=== PATIENT | female | born 1950 | race Caucasian/White ===

== ENCOUNTER 2017-11-16 16:02 | Observation (INO) | payer MEDICARE, MEDICAID, SELFPAY ==
--- NOTE | 2017-11-16 07:48 | XR_ITS ---
XR chest portable HISTORY: Severe shortness of breath, COPD, former smoker ITS.REASON: SOB, HX COPD ORDERING PHYSICIAN: Juanpablo Wallace MD PATIENT AGE: 67 years COMPARISON: 09-11-15 FINDINGS: The cardiomediastinal silhouette and pulmonary vascularity are within normal limits. There is increased opacification in the right infrahilar region. This has a somewhat nodular contour. While this could be related to pneumonia, developing nodule isn't additional consideration. Follow-up PA and lateral chest suggested. If this persists, then CT may be of further value. No acute bony abnormalities. IMPRESSION: Increased opacification right infrahilar region which may be due to pneumonia. Cannot exclude developing nodule. CT may be of further value if this persists
[2017-11-16 16:02] VITALS: BP 117/56; PULSE 86; RESP 24; TEMP 37.2; O2SAT 96; BMI 297955.0
[2017-11-16 16:39] VITALS: BP 113/72; PULSE 89; RESP 20
[2017-11-16 18:00] VITALS: BP 136/73; PULSE 83; RESP 20; O2SAT 96
[2017-11-16 18:34] VITALS: BP 154/83; PULSE 90; RESP 20; TEMP 37.6; O2SAT 95
--- NOTE | 2017-11-16 20:15 | PC.NURSE ---
Fabiana Fuentes called report to A Mando RN- transported to room via at 2015 on 11/16/17.
[2017-11-16 20:55] VITALS: BP 132/68; PULSE 75; RESP 21; TEMP 36.4; O2SAT 95; BMI 29.7
[2017-11-16 22:06] VITALS: BMI 29.7
[2017-11-16 22:34] VITALS: O2SAT 95
--- NOTE | 2017-11-16 23:53 | HMH.EDSOB ---
ED Disposition Clinical Impression: Acute exacerbation of chronic obstructive airways disease, Acute bronchitis, Cough, Tobacco abuse RLL pneumonia Qualifiers: Pneumonia type: due to unspecified organism Qualified Code(s): J18.1 - Lobar pneumonia, unspecified organism Disposition: Admitted as Observation Condition on Discharge: Fair - Critical Care Critical Care Time: No Attestation: On 11/16/17, the high probability of a clinically significant, sudden or life threatening deterioration of the following system(s) required my full and direct attention, intervention and personal management. The time I documented below is in addition to time spent performing reported procedures but includes the following listed in this critical care notation. Medical Decision Making Vital Signs: 11/16/17 20:55 11/16/17 22:00 11/16/17 22:34 Temperature 97.5 F L Temperature Source Oral Pulse Rate [Radial] 75 Respiratory Rate 21 Blood Pressure [Right Arm] 132/68 Blood Pressure Mean [Right Arm] 89 Blood Pressure Source [Right Arm] Automatic Cuff Blood Pressure Position [Right Arm] Supine 02 Sat by Pulse Oximetry 95 95 Oxygen Delivery Method Nasal Cannula Nasal Cannula Nasal Cannula Oxygen Flow Rate (LPM) 2 - Lab Data Lab results reviewed: Yes: I reviewed the patient's lab results. PH 7.402, pCO2 37.0, p02 87.4, HC03 22.5, BE -2.3, C02 23.6, GLU 131 HI , BUN 7, CREAT 093, NA 142, K 3.4, CL 105, C02 27.9, CA 8.9, TP 6.7, ALB 2.9 LO, GLOB 3.8 HI, ALB/GLOB RATIO .76 LO, TB .49, SGOT/AST 58 HI, SGPT/ALT 37, ASK PHOS 52, TROP I <.07 Influenza A & B negative Orders (Tests/Meds): ED MEDICATIONS Generic Name Dose Route Start Last Admin Trade Name Freq PRN Reason Stop Dose Admin Albuterol/Ipratropium 3 ml 11/16/17 22:20 Duoneb 3ml Neb IH 12/16/17 22:19 Q4HP PRN Shortness Of Breath Or Wheezing Sodium Chloride 1,000 mls @ 75 mls/hr 11/16/17 22:30 11/16/17 23:21 Sod Chloride 0.9% 1000ml Bag IV 12/16/17 22:29 75 mls/hr .[id number] DANETTE Administration Azithromycin 500 mg/ Sodium 250 mls @ 250 mls/hr 11/17/17 00:00 11/16/17 23:22 Chloride IV 12/01/17 00:00 250 mls/hr Q24H DANETTE Administration Ceftriaxone Sodium 1 gm/ 50 mls @ 100 mls/hr 11/17/17 20:00 Sodium Chloride IV 12/01/17 19:59 Q24H DANETTE Tussionex (Non- 0 each 11/16/17 21:00 Formulary) PO 12/16/17 20:59 Q12H DANETTE Discontinued Medications Generic Name Dose Route Start Last Admin Trade Name Freq PRN Reason Stop Dose Admin Benzonatate 200 mg 11/16/17 16:55 11/16/17 23:21 Tessalon Perles 100mg Capsule PO 11/16/17 16:56 Not Given ONCE ONE Ceftriaxone Sodium 1 gm/ 50 mls @ 100 mls/hr 11/16/17 23:00 Sodium Chloride IV 11/30/17 22:59 Q24H DANETTE Sodium Chloride 1,000 mls @ 1,000 mls/hr 11/16/17 16:00 11/16/17 23:20 Sod Chloride 0.9% 1000ml Bag IV 11/16/17 16:59 Not Given .Q1H DANETTE Ceftriaxone Sodium 1 gm/ 50 mls @ 100 mls/hr 11/16/17 19:40 11/16/17 23:21 Sodium Chloride IV 11/16/17 20:09 Not Given ONCE ONE - Radiology Data #1 Image(s): Chest Image Reviewed: Yes I reviewed the patient's radiology image Chronic chages, new infiltrates noted - Physician Consults Physician Consulted: Rosa Elena Time: 19:30 Reason -: Admission, Pt condition Comment/Response: Accepted admission to Dr Rodrigo Johnson Inquiry Pt receiving controlled substance: No Medical Decision Making Narrative: Discussed condition and lab results with son. Oxygen % dec 25% Resp/SOB HPI - General Chief Complaint: Shortness of Breath/Dyspnea Stated Complaint: COPD Time Seen by Provider: 11/16/17 16:15 Mode of Arrival: EMS ([facility]) Source of Information: Patient, Relative (son), EMS Limitations: Physical Limitations Description of Symptoms (Recalled from ER Triage Doc. by RN): cough, diarrhea, poor po intake x 5 days - History of Present Illness 67
--- NOTE | 2017-11-16 23:56 | ED_ITS ---
ED Disposition Clinical Impression: Acute exacerbation of chronic obstructive airways disease, Acute bronchitis, Cough, Tobacco abuse RLL pneumonia Qualifiers: Pneumonia type: due to unspecified organism Qualified Code(s): J18.1 - Lobar pneumonia, unspecified organism Disposition: Admitted as Observation Condition on Discharge: Fair - Critical Care Critical Care Time: No Attestation: On 11/16/17, the high probability of a clinically significant, sudden or life threatening deterioration of the following system(s) required my full and direct attention, intervention and personal management. The time I documented below is in addition to time spent performing reported procedures but includes the following listed in this critical care notation. Medical Decision Making Vital Signs: 11/16/17 20:55 11/16/17 22:00 11/16/17 22:34 Temperature 97.5 F L Temperature Source Oral Pulse Rate [Radial] 75 Respiratory Rate 21 Blood Pressure [Right Arm] 132/68 Blood Pressure Mean [Right Arm] 89 Blood Pressure Source [Right Arm] Automatic Cuff Blood Pressure Position [Right Arm] Supine 02 Sat by Pulse Oximetry 95 95 Oxygen Delivery Method Nasal Cannula Nasal Cannula Nasal Cannula Oxygen Flow Rate (LPM) 2 - Lab Data Lab results reviewed: Yes: I reviewed the patient's lab results. PH 7.402, pCO2 37.0, p02 87.4, HC03 22.5, BE -2.3, C02 23.6, GLU 131 HI , BUN 7, CREAT 093, NA 142, K 3.4, CL 105, C02 27.9, CA 8.9, TP 6.7, ALB 2.9 LO, GLOB 3.8 HI, ALB/GLOB RATIO .76 LO, TB .49, SGOT/AST 58 HI, SGPT/ ALT 37, ASK PHOS 52, TROP I <.07 Influenza A & B negative Orders (Tests/Meds): ED MEDICATIONS Generic Name Dose Route Start Last Admin Trade Name Freq PRN Reason Stop Dose Admin Albuterol/Ipratropium 3 ml 11/16/17 22:20 Duoneb 3ml Neb IH 12/16/17 22:19 Q4HP PRN Shortness Of Breath Or Wheezing Sodium Chloride 1,000 mls @ 75 mls/hr 11/16/17 22:30 11/16/17 23:21 Sod Chloride 0.9% 1000ml Bag IV 12/16/17 22:29 75 mls/hr .[id number] DANETTE Administration Azithromycin 500 mg/ Sodium 250 mls @ 250 mls/hr 11/17/17 00:00 11/16/17 23: 22 Chloride IV 12/01/17 00:00 250 mls/hr Q24H DANETTE Administration Ceftriaxone Sodium 1 gm/ 50 mls @ 100 mls/hr 11/17/17 20:00 Sodium Chloride IV 12/01/17 19:59 Q24H DANETTE Tussionex (Non- 0 each 11/16/17 21:00 Formulary) PO 12/16/17 20:59 Q12H DANETTE Discontinued Medications Generic Name Dose Route Start Last Admin Trade Name Freq PRN Reason Stop Dose Admin Benzonatate 200 mg 11/16/17 16:55 11/16/17 23:21 Tessalon Perles 100mg Capsule PO 11/16/17 16:56 Not Given ONCE ONE Ceftriaxone Sodium 1 gm/ 50 mls @ 100 mls/hr 11/16/17 23:00 Sodium Chloride IV 11/30/17 22:59 Q24H DANETTE Sodium Chloride 1,000 mls @ 1,000 mls/hr 11/16/17 16:00 11/16/17 23:20 Sod Chloride 0.9% 1000ml Bag IV 11/16/17 16:59 Not Given .Q1H DANETTE Ceftriaxone Sodium 1 gm/ 50 mls @ 100 mls/hr 11/16/17 19:40 11/16/17 23:21 Sodium Chloride IV 11/16/17 20:09 Not Given ONCE ONE - Radiology Data #1 Image(s): Chest Image Reviewed: Yes I reviewed the patient's radiology image Ch
[2017-11-17] VITALS: BP 131/80; PULSE 83; RESP 22; TEMP 36.6
[2017-11-17 00:02] LABS: Alanine Aminotransferase 37 U/L (12-78); Albumin Level 2.9 gm/dL (3.4-5.0); Albumin/Globulin Ratio 0.8 (1.1-1.8); Alkaline Phosphatase 52 U/L (46-116); Anion Gap 12.4 mEq/L (5-15); Aspartate Amino Transferase 58 U/L (15-37); Bilirubin,Total 0.5 mg/dL (0.2-1.0); Blood Urea Nitrogen 7 mg/dL (7-18); Calcium 8.9 mg/dL (8.5-10.1); Carbon Dioxide 28 mmol/L (21.0-32.0); Chloride 105 mmol/L (98-107); Creatinine Clearance Estimated 73 mL/min (0-300); Creatinine,Serum 0.93 mg/dL (0.55-1.02); Estimated Glomerular Filt Rate 60 ml/min (>60); GFR (African American) > 60 ML/MIN (>60); Globulin 3.8 gm/dl (1.3-3.2); Glucose 131 mg/dL (74-106); Magnesium 1.8 mg/dL (1.4-2.2); Potassium 3.4 mmoL/L (3.5-5.1); Sodium 142 mmol/L (136-145); Total Protein,Serum 6.7 gm/dL (6.4-8.2); Troponin I < 0.02 ng/ml (0.00-0.06)
[2017-11-17 00:56] LABS: Basophils % 0.8 % (0.1-2.0); Eosinophils % 0.2 % (0.1-12.0); Hematocrit 39.7 % (37.0-47.0); Hemoglobin 13.1 g/dL (12.2-16.2); Lymphocytes # 1.7 K/mm3 (0.7-4.5); Lymphocytes % 24.9 K/mm3 (10-50); Mean Corpuscular Hemoglobin 30.1 pg (27.0-31.2); Mean Platelet Volume 8.4 fl (7.4-10.4); Monocytes % 6.6 % (1.7-9.3); Neutrophils # 4.3 K/mm3 (1.8-7.8); Neutrophils % 62.5 % (37.0-80.0); Platelet Count 226 K/mm3 (142-424); Red Blood Count 4.36 M/mm3 (4.20-5.40); Red Cell Distribution Width 13.8 % (11.5-17.5); White Blood Count 6.9 K/mm3 (4.8-10.8)
[2017-11-17 00:57] LABS: Basophils # 0.1 K/mm3 (0-0.2); Monocytes # 0.5 K/mm3 (0.1-1.0)
[2017-11-17 04:00] VITALS: BP 138/66; PULSE 72; RESP 22; TEMP 36.8; O2SAT 93
--- NOTE | 2017-11-17 04:17 | PC.NURSE ---
DOES NOT HAVE INTERNET. NOT INTERESTED IN PT PORTAL. BROCHURE GIVEN
[2017-11-17 04:29] LABS: Adenovirus F 40/41, stool Not Detected (NotDetected); Astrovirus Not Detected (NotDetected); Campylobacter Not Detected (NotDetected); Clostridium Difficile A/B, PCR Not Detected (NotDetected); Cryptosporidium Not Detected (NotDetected); Cyclospora Cayetanesis Not Detected (NotDetected); Entamoeba histolytica Not Detected (NotDetected); Enteroaggregative E coli Not Detected (NotDetected); Enteropathogenic E coli Not Detected (NotDetected); Enterotoxigenic E coli Not Detected (NotDetected); Giardia lamblia Not Detected (NotDetected); Norovirus Not Detected (NotDetected); Plesimonas Shigalloides, PCR Not Detected (NotDetected); Rotavirus A Not Detected (NotDetected); Salmonella, PCR Not Detected (NotDetected); Sapovirus Not Detected (NotDetected); Shiga-like toxin E coli Not Detected (NotDetected); Shigella Enterovasive E coli Not Detected (NotDetected); Vibrio Cholerae Not Detected (NotDetected); Vibrio, PCR Not Detected (NotDetected); Yersinia Entercolitica, PCR Not Detected (NotDetected)
--- NOTE | 2017-11-17 05:23 | PC.NURSE ---
SINCE ADMISSION PT HAS NOT RESTED MUCH, C/O DRY HACKY COUGH WITH SMALL AMOUNT OF SPUTUM PRODUCTION. PT UP TO BSC X1 ASSISTANCE. RHONCHI AND WHEEZING NOTED DURING LUNG AUSCULTATION. BS ACTIVE IN ALL 4 QAUDS. PT A&OX3. TOLERATING 2L NC WELL. NO ACUTE DISTRESS NOTED. WILL CONTINUE TO MONITOR.
[2017-11-17 06:01] VITALS: PULSE 73; PULSE 74; O2SAT 93
[2017-11-17 06:43] LABS: Eosinophils % 0.2 % (0.1-12.0); Hematocrit 37.9 % (37.0-47.0); Hemoglobin 12.1 g/dL (12.2-16.2); Lymphocytes % 22.3 K/mm3 (10-50); Mean Corpuscular Hemoglobin 29.3 pg (27.0-31.2); Mean Corpuscular Volume 91.4 fl (81-99); Mean Platelet Volume 7.9 fl (7.4-10.4); Monocytes % 6.6 % (1.7-9.3); Neutrophils % 70.3 % (37.0-80.0); Platelet Count 225 K/mm3 (142-424); Red Blood Count 4.15 M/mm3 (4.20-5.40); White Blood Count 7.1 K/mm3 (4.8-10.8)
[2017-11-17 06:44] LABS: Basophils % 0.6 % (0.1-2.0); Lymphocytes # 1.6 K/mm3 (0.7-4.5); Monocytes # 0.5 K/mm3 (0.1-1.0)
[2017-11-17 06:49] LABS: Anion Gap 11.7 mEq/L (5-15); Blood Urea Nitrogen 10 mg/dL (7-18); Carbon Dioxide 27 mmol/L (21.0-32.0); Chloride 108 mmol/L (98-107); Creatinine Clearance Estimated 73 mL/min (0-300); Creatinine,Serum 0.74 mg/dL (0.55-1.02); Estimated Glomerular Filt Rate > 60 ml/min (>60); GFR (African American) > 60 ML/MIN (>60); Glucose 170 mg/dL (74-106); Potassium 3.7 mmoL/L (3.5-5.1); Sodium 143 mmol/L (136-145)
--- NOTE | 2017-11-17 07:18 | PC.NURSE ---
REPORT GIVEN TO Victoria PANDEY
--- NOTE | 2017-11-17 07:19 | HMH.PHAVTE ---
[facility] Pharmacy VTE Monitoring - Patient Demographics Admission date: 11/16/17 Report Date: 11/17/17 Time: 07:19 Allergies/Adverse Reactions: metronidazole Allergy (Unknown, Verified 11/16/17 22:18) I-HIVES nitrofurantoin [From MACROBID] Allergy (Unknown, Verified 11/16/17 22:18) Unknown allergy reaction Height: 1.7 m Weight: 86.268 kg Patient Problems: Current Active Problems Acute exacerbation of chronic obstructive airways disease (Acute) RLL pneumonia (Acute) Acute bronchitis (Acute) Cough (Acute) Tobacco abuse (Acute) - VTE Risk Labs: VTE Related Lab Results Hgb 12.1 g/dL (12.2-16.2) L 11/17/17 06:12 Hct 37.9 % (37.0-47.0) 11/17/17 06:12 Plt Count 225 K/mm3 (142-424) 11/17/17 06:12 BUN 10 mg/dL (7-18) D 11/17/17 06:12 Creatinine 0.74 mg/dL (0.55-1.02) D 11/17/17 06:12 Estimated Creat Clear 73 mL/min (0-300) 11/17/17 06:12 Was VTE Risk Assessment Performed: Yes VTE Score: 7 VTE Risk Level: Moderate Risk Clinical Trial Participant: No - Prophylaxis Types of VTE Prophylaxis: TEDS Thigh High
[2017-11-17 07:56] VITALS: BP 155/42; PULSE 83; RESP 20; TEMP 37; O2SAT 93
--- NOTE | 2017-11-17 08:16 | HMH.HP ---
*Admission Date: 11/16/17 <ReenaAnalia 11/17/17 08:22> *Chief complaint: cough and SOB <ReenaAnalia 11/17/17 08:22> *History of present illness: Ms Sommer is a 67 year old female with a history of COPD, tobacco use, chronic low back and leg pain, and depression who describes being sick for several weeks. She started with a sore throat 11/06/17 which progressed to a frequent cough, fever, body aches, headache and also nausea and diarrhea. She has not been able to eat or drink much for the past week. She has been taking some of her meds. She presented to the ER last PM and was felt to have a new infiltrate on the CXR. She was adm for ABX, IVF nebs, and further evaluation and treatment. This AM she feels terrible. She has continued to cough throughout the night. <Analia Valles 11/17/17 14:40> [facility] History Medical History: Reports:: Asthma, Cancer (cervical), Chronic Obstructive Pulmonary Disease (COPD), Coronary Artery Disease, Hyperlipidemia, Hypertension, Migraine Denies:: Diabetes Mellitus Type 1, Diabetes Mellitus Type 2, MRSA <Analia Valles 11/17/17 14:40> Other Medical History: Reports: Arthritis, Cataracts, Hoarseness (VOICE IS HOARSE ON ADMISSION), Hormone Therapy, Hypothyroidism, Sinus Problems, Thyroid Disease <Analia Valles 11/17/17 14:40> Comment: chronic low back and leg pain <Analia Valles 11/17/17 14:40> Laterality Cases: Bilateral: Lumpectomy <Analia Valles 11/17/17 08:22> Other Surgeries: Yes: Cancer Surgery (cervical), Colonoscopy, Hysterectomy-Total <Analia Valles 11/17/17 14:40> Amputation: No <Analia Valles 11/17/17 08:22> Fractures: No <Analia Valles 11/17/17 14:40> - *Social History Educational Level: Attended High School <Analia Valles 11/17/17 08:22> Smoking Status: Current every day smoker <Analia Valles 11/17/17 08:22> Tobacco Type: cigarettes <Analia Valles 11/17/17 08:22> # Packs/Day (cigarettes): 3 <Analia Valles 11/17/17 08:22> Smoking End Date: ABOUT A WEEK AGO <Analia Valles 11/17/17 08:22> Alcohol Intake: never <Analia Valles 11/17/17 08:22> Alcohol Intake Frequency:: 3 or more drinks per day <Analia Valles 11/17/17 08:22> Substance Use Type: denies use, prescription drug <Analia Valles 11/17/17 14:40> Occupational Status: employed <Analia Valles 11/17/17 08:22> Housing: house <Analia Valles 11/17/17 08:22> Household Members: spouse, children <Analia Valles 11/17/17 08:22> - Psychiatric History Expresses thoughts of harming self/others: None <ReenaAnalia 11/17/17 08:22> Suicide Plan Description: No Plan <Analia Valles 11/17/17 08:22> *Family Hx:: Cancer (father had bone cancer; brother-colon cancer; sister-lung cancer; brother-tongue cancer) <ReenaAnalia 11/17/17 14:40> Comment: mother had Parkinsons <ReenaAnalia 11/17/17 14:40> Review of Systems - Constitutional Reports body ache(s), Reports chills, Reports fever(s), Reports headache(s), Reports lack of energy, Reports weakness <ReenaAnalia 11/17/17 14:40> - ENT Reports headache(s), Reports sore throat <ReenaAnalia 11/17/17 14:40> - *Cardiovascular Reports shortness of breath, Denies chest pain <VallesAnalia 11/17/17 14:40> - *Respiratory Reports chest congestion, Reports cough, Reports shortness of breath <VallesAnalia 11/17/17 14:40> - *Gastrointestinal Reports other, Denies vomiting <VallesAnalia 11/17/17 14:40> Comments: diarrhea <VallesAnalia 11/17/17 14:40> - *Musculoskeletal Reports joint pain, Reports muscle weakness, Reports body aches <Analia Valles - 11/17/17 14:40> - *Neurologic Reports dizziness, Reports headache(s), Reports other (as per HPI) <Analia Valles - 11/17/17 14:40> Meds Home Medications Medication Instructions Recorded Confirmed Type Atorvastatin Calcium [Atorvastatin 40 mg PO HS 11/16/17 11/17/17 History 40mg Tab] Escitalopram Oxalate [Lexapro] 20 mg PO DAILY 11/16/17 0
--- NOTE | 2017-11-17 08:22 | P.HP_ITS ---
*Admission Date: 11/16/17 <ReenaAnalia 11/17/17 08:22> *Chief complaint: cough and SOB <ReenaAnalia 11/17/17 08:22> *History of present illness: Ms Sommer is a 67 year old female with a history of COPD, tobacco use, chronic low back and leg pain, and depression who describes being sick for several weeks. She started with a sore throat 11/06/17 which progressed to a frequent cough, fever, body aches, headache and also nausea and diarrhea. She has not been able to eat or drink much for the past week. She has been taking some of her meds. She presented to the ER last PM and was felt to have a new infiltrate on the CXR. She was adm for ABX, IVF nebs, and further evaluation and treatment. This AM she feels terrible. She has continued to cough throughout the night. <Analia Valles 11/17/17 14:40> [facility] History Medical History: Reports:: Asthma, Cancer (cervical), Chronic Obstructive Pulmonary Disease (COPD), Coronary Artery Disease, Hyperlipidemia, Hypertension , Migraine Denies:: Diabetes Mellitus Type 1, Diabetes Mellitus Type 2, MRSA <Analia Valles 11/17/17 14:40> Other Medical History: Reports: Arthritis, Cataracts, Hoarseness (VOICE IS HOARSE ON ADMISSION), Hormone Therapy, Hypothyroidism, Sinus Problems, Thyroid Disease <Analia Valles 11/17/17 14:40> Comment: chronic low back and leg pain <Analia Valles 11/17/17 14:40> Laterality Cases: Bilateral: Lumpectomy <Analia Valles 11/17/17 08:22> Other Surgeries: Yes: Cancer Surgery (cervical), Colonoscopy, Hysterectomy-Total <Analia Valles 11/17/17 14:40> Amputation: No <Analia Valles 11/17/17 08:22> Fractures: No <Analia Valles 11/17/17 14:40> - *Social History Educational Level: Attended High School <Analia Valles 11/17/17 08:22> Smoking Status: Current every day smoker <Analia Valles 11/17/17 08:22> Tobacco Type: cigarettes <Analia Valles 11/17/17 08:22> # Packs/Day (cigarettes): 3 <Analia Valles 11/17/17 08:22> Smoking End Date: ABOUT A WEEK AGO <Analia Valles 11/17/17 08:22> Alcohol Intake: never <Analia Valles 11/17/17 08:22> Alcohol Intake Frequency:: 3 or more drinks per day <Analia Valles 11/17/17 08:22> Substance Use Type: denies use, prescription drug <Analia Valles 11/17/17 14 :40> Occupational Status: employed <Analia Valles 11/17/17 08:22> Housing: house <Analia Valles 11/17/17 08:22> Household Members: spouse, children <Analia Valles 11/17/17 08:22> - Psychiatric History Expresses thoughts of harming self/others: None <ReenaAnalia 11/17/17 08: 22> Suicide Plan Description: No Plan <Analia Valles 11/17/17 08:22> *Family Hx:: Cancer (father had bone cancer; brother-colon cancer; sister-lung cancer; brother-tongue cancer) <ReenaAnalia 11/17/17 14:40> Comment: mother had Parkinsons <ReenaAnalia 11/17/17 14:40> Review of Systems - Constitutional Reports body ache(s), Reports chills, Reports fever(s), Reports headache(s), Reports lack of energy, Reports weakness <ReenaAnalia 11/17/17 14:40> - ENT Reports headache(s), Reports sore throat <ReenaAnalia 11/17/17 14:40> - *Cardiovascular Reports shortness of breath, Denies chest pain <VallesAnalia 11/17/17 14:40 > - *Respiratory Reports chest congestion, Reports cough, Reports shortness of breath <Valles Analia 11/17/17 14:40> - *Gastrointestinal Reports other, Denies vomiting <VallesAnalia 11/17/17 14:40> Comments: diarrhea <VallesAnalia 11/17/17 14:40> - *Musculoskeletal Reports joint pain, Reports muscle weakness, Reports body aches <Analia Valles - 11/17/17 14:40> - *Neurologic R
[2017-11-17 09:56] VITALS: PULSE 74; PULSE 77
[2017-11-17 10:09] LABS: ABG Base Excess -2.3 mmol/L (-2.4-2.3); ABG HCO3 22.5 mmhg (22.0-26.0); ABG Oxygen Saturation 97 % (90-100); ABG PO2 87.4 mmhg (80-100); ABG TCO2 23.6 mmhg (23-27)
[2017-11-17 10:10] LABS: Allen's Test Acceptable; Oxygen 2LPM %; Source Left Radial
--- NOTE | 2017-11-17 10:48 | P.PN_ITS ---
Internal Medicine - PN: Subj *Date: 11/17/17 *Time: 10:47 Exam Vital signs and Labs for Last 24 Hours: Temp Pulse Resp BP Pulse Ox 98.6 F 77 20 155/42 93 L 11/17/17 07:56 11/17/17 09:56 11/17/17 07:56 11/17/17 07:56 11/17/17 07:56 Laboratory Results - last 24 hr 11/16/17 : WBC 6.9, RBC 4.36, Hgb 13.1, Hct 39.7, MCV 91.0, MCH 30.1, MCHC 33.0 , RDW 13.8, Plt Count 226, MPV 8.4, Neut % (Auto) 62.5, Lymph % (Auto) 24.9, Mineral % (Auto) 6.6, Eos % (Auto) 0.2, Baso % (Auto) 0.8, Neut # (Auto) 4.3, Lymph # (Auto) 1.7, Mineral # (Auto) 0.5, Eos # (Auto) 0.0, Baso # (Auto) 0.1 11/16/17 : Sodium 142, Potassium 3.4 L, Chloride 105, Carbon Dioxide 28, Anion Gap 12.4, BUN 7, Creatinine 0.93, Estimated Creat Clear 73, Estimated GFR 60, Est GFR ( Amer) > 60, Glucose 131 H, Calcium 8.9, Magnesium 1.8, Total Bilirubin 0.5, AST 58 H, ALT 37, Alkaline Phosphatase 52, Troponin I < 0.02, Total Protein 6.7, Albumin 2.9 L, Globulin 3.8 H, Albumin/Globulin Ratio 0.8 L 11/16/17 : Influenza Type A Ag Negative, Influenza Type B Ag Negative 11/17/17 04:00: Stl Aeromonas (PCR) Not detected, Stl C. cayetanensis PCR Not detected, Stool Rotavirus (PCR) Not detected, Stl Adenov F 40/41 PCR Not detected, Stool Astrovirus (PCR) Not detected, Stool Cryptosporidium PCR Not detected, Stl E.coli Shiga Tox PCR Not detected, Stool E coli O157 PCR Not detected, Stl Enterotoxigenic E PCR Not detected, Stool EPEC (PCR) Not detected , Stool EAEC (PCR) Not detected, Stl E. histolytica PCR Not detected, Stool Giardia Lamblia PCR Not detected, Stool Sapovirus (PCR) Not detected, Stl P. shigelloides PCR Not detected, Stl Shigella/EIEC PCR Not detected, St Y.enterocolitica PCR Not detected, Stool Vibrio (PCR) Not detected, Stl Vibrio cholerae PCR Not detected, Stl Norovirus GI/GII PCR Not detected, Campylobacter (PCR) Not detected, C. difficile (PCR) Not detected, Salmonella (PCR) Not detected 11/17/17 06:12: WBC 7.1, RBC 4.15 L, Hgb 12.1 L, Hct 37.9, MCV 91.4, MCH 29.3, MCHC 32.0, RDW 14.0, Plt Count 225, MPV 7.9, Neut % (Auto) 70.3, Lymph % (Auto) 22.3, Mineral % (Auto) 6.6, Eos % (Auto) 0.2, Baso % (Auto) 0.6, Neut # (Auto) 5.0 , Lymph # (Auto) 1.6, Mineral # (Auto) 0.5, Eos # (Auto) 0.0, Baso # (Auto) 0.0 11/17/17 06:12: Sodium 143, Potassium 3.7, Chloride 108 H, Carbon Dioxide 27, Anion Gap 11.7, BUN 10 D, Creatinine 0.74 D, Estimated Creat Clear 73, Estimated GFR > 60, Est GFR ( Amer) > 60, Glucose 170 H D I & O for Last 24 hours: Intake & Output 11/14/17 11/15/17 11/16/17 11/17/17 23:59 23:59 23:59 23:59 Intake Total 1187 / 1187 Output Total 102 / 102 Balance 1085 / 1085 Microbiology Reports for the Last 24 Hours: Microbiology 11/17/17 03:30 Sputum - Expectorated Sputum Gram Stain - Final The patient's infection will respond to the chosen ABx?: Yes Is the patient receiving the right drug, dose, and route?: Yes Could a more targeted ABx be ordered?: No
--- NOTE | 2017-11-17 11:44 | PC.NURSE ---
PT IS RESTING IN BED, STATES SHE IS NOT FEELING WELL AT ALL TODAY. ALERT AND ORIENTED X3. PT HAS BEEN GETTING OOB TO THE BSC. LUNG SOUNDS HAVE SCATTERED WHEEZES, BOWEL SOUNDS NORMAL. PT HAS SOME TENDERNESS IN HER BLE. WILL CONTINUE TO MONITOR.
--- NOTE | 2017-11-17 16:02 | SW/DCPLANNER ---
Addendum entered by Dinorah Reardon 11/17/17 16:06: Patient stated that she would prefer [facility] out of [facility]. Original Note: I have spoke with patient regarding discharge plans. Patient has stated that she lives at home with her son and her brother. Patient says that she can tend to her daily needs herself...such as bathing but patient stated that she is too weak to bathe herself right now. I had a discussion with patient regarding home health and what services they have to offer. Patient has agreed to home health and would be willing to accept their services if ordered by MD at time of discharge. I will follow up with this patient at time of discharge to assist with any needs/new orders.
[2017-11-17 16:41] VITALS: BMI 29.8
[2017-11-17 20:52] VITALS: BP 156/68; PULSE 86; RESP 18; TEMP 36.4; O2SAT 92
[2017-11-18] VITALS (10 sets, daily range): BP systolic 122–169; BP diastolic 68–95; PULSE 61–93; RESP 18–24; TEMP 36.1–36.8; O2SAT 2–95
[2017-11-18 00:05] LABS: POC Glucose,Bedside 190 mg/dL
--- NOTE | 2017-11-18 00:05 | PC.NURSE ---
PATIENT LAYING IN BED SLEEPING WHEN ENTERED ROOM. VERY HARD TO AROUSE, HAD TO CALL OUT NAME SEVERAL TIMES. ONLY KNEW HER NAME. NEURO CHECK SHOWED NO DEFICITS. BP 167/83,77,24, 97.3 AX, 02 SAT 93 ON 2L. FS WAS 190. NEW IV STARTED IN R AC 20G, GOOD BLOOD RETURN. PER S.CALL RN. RESP EVEN AND NONLABORED. BILAT WHEEZES. DENIES PAIN. WILL CONTINUE TO MONITOR.
--- NOTE | 2017-11-18 04:32 | PC.NURSE ---
PATIENT GOT UP TO BEDSIDE TOILET WITH STANDBY ASSIST. DONE WELL. IS VERY SOA WITH ANY TASK SUCH TURNING IN BED. 02 SAT WAS 95 ON 2L. IS MORE ALERT THAN LAST CHECK. ASSIST WITH PARTIAL BATH. HAD SMALL BM. WILL CONTINUE TO MONITOR. SAFETY IS ON.BED LOCKED IN LOW POSITION. WILL CONTINUE TO MONITOR.
--- NOTE | 2017-11-18 08:03 | HMH.ACPN ---
Internal Medicine - PN: Subj *Date: 11/18/17 *Time: 18:57 Interval history: States she is better; breathing is better; cough is better; she was able to sleep; she did eat a little; was OOB to [facility] and sat on the side of the bed. Exam Vital signs and Labs for Last 24 Hours: Temp Pulse Resp BP Pulse Ox 97.0 F L 62 18 167/68 95 11/18/17 04:33 11/18/17 05:42 11/18/17 04:33 11/18/17 04:33 11/18/17 05:42 Laboratory Results - last 24 hr 11/17/17 23:48: POC Glucose 190 I & O for Last 24 hours: Intake & Output 11/15/17 11/16/17 11/17/17 11/18/17 11:59 11:59 11:59 11:59 Intake Total 1187 / 2027 1449 / 1449 Output Total 102 / 102 850 / 850 Balance 1085 / 1925 599 / 599 Microbiology Reports for the Last 24 Hours: Microbiology 11/17/17 03:30 Sputum - Expectorated Sputum Gram Stain - Final - Constitutional no acute distress Comments: awakened for exam - *Routine Respiratory Exam Comments: bilateral expiratory wheezing with bibasilar crackles - *Routine Cardiovascular Exam Present: RRR - *Routine Abdominal Exam Present: soft, normoactive bowel sounds. Absent: tenderness, distended - *Routine Extremities Exam Present: full ROM. Absent: edema, calf tenderness - *Routine Neurological Exam Present: alert, oriented X3 Assessment and Plan (1) COPD (chronic obstructive pulmonary disease) Current visit: Yes Status: Chronic Category: Medical Code(s): J44.9 - Chronic obstructive pulmonary disease, unspecified (2) Generalized anxiety disorder Current visit: Yes Status: Chronic Category: Medical Code(s): F41.1 - Generalized anxiety disorder (3) Chronic low back pain Current visit: Yes Status: Chronic Category: Medical Code(s): M54.5 - Low back pain; G89.29 - Other chronic pain (4) Acquired hypothyroidism Current visit: Yes Status: Chronic Category: Medical Code(s): E03.9 - Hypothyroidism, unspecified (5) RLL pneumonia Current visit: Yes Status: Acute Qualifiers: Pneumonia type: due to unspecified organism Qualified Code(s): J18.1 - Lobar pneumonia, unspecified organism Category: Medical Code(s): J18.1 - Lobar pneumonia, unspecified organism (6) Tobacco abuse Current visit: Yes Status: Chronic Category: Medical Code(s): Z72.0 - Tobacco use - Assessment and plan all Dx Assessment and Plan for all problems:: will repeat CXR today and continue current care; OOB Patient seen and examined. Concur with above.
--- NOTE | 2017-11-18 08:11 | XR_ITS ---
XR chest 2V HISTORY: Shortness of breath ITS.REASON: SOB ORDERING PHYSICIAN: Juanpablo Wallace MD PATIENT AGE: 67 years COMPARISON: 11/16/2017 FINDINGS: The cardiomediastinal silhouette and pulmonary vascularity are within normal limits. Infiltrate in the right infrahilar region shown some improvement compared to the previous exam this has less of a nodular appearance. There is some residual atelectasis/peribronchial inflammation in this area with some residual opacification overlying the posterior aspect of the T10 vertebral body. There are findings of COPD present. There is some blunting of the posterior costophrenic sulcus suggesting small effusion on the left.. No acute bony abnormalities. IMPRESSION: 1. Persistent but slightly improved infiltrate within the right infrahilar region which appears to be in the posterior hemithorax. Recommend follow until clear. 2. COPD. 3. Small left effusion
--- NOTE | 2017-11-18 10:47 | PC.NURSE ---
All late documentation entered per down time procedure.
--- NOTE | 2017-11-18 15:56 | PC.NURSE ---
PT IS RESTING IN BED, NO COMPLAINTS OF DISCOMFORT, STATES SHE FEELS SOMEWHAT BETTER TO DAY. PT IS NEEDING A LOT OF ENCOURAGEMENT TO GET OOB TO SIT IN THE CHAIR. PT STATED SHE WOULD GET OOB FOR SUPPER. LUNG SOUNDS HAVE SCATTERED WHEEZES, BOWEL SOUNDS NORMAL. WILL CONTINUE TO MONITOR.
--- NOTE | 2017-11-18 20:48 | PC.NURSE ---
PATIENT REQUESTED THAT NON SKID FOOTWEAR BE REMOVED AT NIGHT.
[2017-11-19] VITALS (12 sets, daily range): BP systolic 132–177; BP diastolic 73–97; PULSE 71–103; RESP 18–22; TEMP 36.7–37.2; O2SAT 91–97
--- NOTE | 2017-11-19 04:33 | PC.NURSE ---
BLOOD PRESSURE OF 177/88 REPORTED TO BRYANNA FUNES.
--- NOTE | 2017-11-19 04:57 | PC.NURSE ---
PT HAS SLEPT. SOME INTERMITTENT CONFUSION NOTED. CONTINUES ON 2L PER NC OF OXYGEN. NO COUGH NOTED. PT UP TO BSC WITH ASSIST OF 1. NO SOB REPORTED.
--- NOTE | 2017-11-19 08:35 | HMH.ACPN ---
Internal Medicine - PN: Subj *Date: 11/19/17 *Time: 10:35 Interval history: Feels better this AM; cough is less; slept; eats very little; ambulated in the room and sat in the chair briefly Exam Vital signs and Labs for Last 24 Hours: Temp Pulse Resp BP Pulse Ox 98.4 F 75 18 177/88 95 11/19/17 04:30 11/19/17 05:48 11/19/17 04:30 11/19/17 04:30 11/19/17 05:48 I & O for Last 24 hours: Intake & Output 11/16/17 11/17/17 11/18/17 11/19/17 11:59 11:59 11:59 11:59 Intake Total 1187 / 2027 1689 / 1689 2474 / 2474 Output Total 102 / 102 850 / 850 Balance 1085 / 1925 839 / 839 2474 / 2474 Microbiology Reports for the Last 24 Hours: Microbiology 11/17/17 03:30 Sputum - Expectorated Sputum Gram Stain - Final 11/17/17 03:30 Sputum - Expectorated Sputum Sputum Culture - Preliminary Gram Positive Cocci - Constitutional no acute distress Comments: appears to feel better - *Routine Respiratory Exam Present: wheezes (bilaterally; improved), crackles - *Routine Cardiovascular Exam Present: RRR - *Routine Abdominal Exam Present: soft, normoactive bowel sounds. Absent: tenderness - *Routine Extremities Exam Present: full ROM. Absent: edema Comments: leg tenderness bilaterally Assessment and Plan (1) RLL pneumonia Current visit: Yes Status: Acute Qualifiers: Pneumonia type: due to unspecified organism Qualified Code(s): J18.1 - Lobar pneumonia, unspecified organism Category: Medical Code(s): J18.1 - Lobar pneumonia, unspecified organism (2) Acute exacerbation of chronic obstructive airways disease Current visit: Yes Status: Acute Category: Medical Code(s): J44.1 - Chronic obstructive pulmonary disease with (acute) exacerbation (3) Generalized anxiety disorder Current visit: Yes Status: Chronic Category: Medical Code(s): F41.1 - Generalized anxiety disorder (4) Chronic low back pain Current visit: Yes Status: Chronic Category: Medical Code(s): M54.5 - Low back pain; G89.29 - Other chronic pain (5) Acquired hypothyroidism Current visit: Yes Status: Chronic Category: Medical Code(s): E03.9 - Hypothyroidism, unspecified (6) Tobacco abuse Current visit: Yes Status: Chronic Category: Medical Code(s): Z72.0 - Tobacco use - Assessment and plan all Dx Assessment and Plan for all problems:: wean from O2; encouraged to be up in the chair Patient seen and examined. Concur with above assessment and plan. Still is still weak and dyspneic when OOB. Will get PT/OT eval today and attempt to wean from O2. Change to oral steroids.
--- NOTE | 2017-11-19 10:42 | HMH.OTEV ---
Physical Therapy Evaluation Rehab OT IP Evaluation Start: 11/19/17 10:00 Freq: ONCE Status: Complete Protocol: Document 11/19/17 10:36 [facility] (Rec: 11/19/17 10:42 [facility] [id number]) Rehab OT IP Assessment Subjective History Pt reports she lives at home with her son. Pt claims before being hospitalized she was independent with all ADLs. Pt claims she is able to complete IADLS but normally her son would do these tasks for her. Pt does not require AE during ambulation. Pt does not have O2 at home. Pt does not drive. Subjective Just short of breath. Objective Upper Extremity Gross ROM WNL Bed Mobility bed mobility-scooting bed mobility - supine/sit bed mobility - rolling Assist Level Supervision/Stand by Transfer Training Sit/Stand Transfer Assist Level Supervision/Stand by Chair Transfer Ability Supervision/Stand by Chair Transfer Technique Sit to/from Ambulatory Chair Transfer Assistive Devices None Self care skills fully toilet trained Feeding Ability Independent Lower Body Dressing Ability Standby Assistance Upper Body Dressing Ability Standby Assistance Performing Toilet Hygiene Ability Independent Overall Commode/Toilet Transfer Ability Independent Commode/Toilet Transfer Technique Sit to/from Ambulatory decrease in endurance No Rehab OT IP prob,goals,plan Problems Date of Evaluation: 11/19/17 Other OT problems Pt appears to be at baseline; no further tx required at this time. Rehab Potential Rehab Potential Innapropriate for Skilled Therapy Equipment Needs Assistive Devices None / NA Plan Other Intervention Plan At this time, pt appears to be at baseline and doesn't required tx. Discharge Plan OT Discharge Plan Plan is for patient to discharge home. Eval Complexity Eval Charge Codes 54676 - Low Complexity G Codes G -code Required Yes OT Current Status Self Care OT Current Status Modifier CI-At least 1% but less than 20% impaired, limited or restricted
--- NOTE | 2017-11-19 11:19 | HMH.PTEV ---
Physical Therapy Evaluation Rehab PT IP Evaluation Start: 11/19/17 09:58 Freq: ONCE Status: Active Protocol: Document 11/19/17 10:00 MILLERShayMARIA ISABEL (Rec: 11/19/17 11:18 PHORNE [id number]) Subjective/History History History 67 yof adm to [facility] with c/o weakness and SOA. PMH: COPD Subjective Subjective Pt reports feeling good this am, no c/o. Rehab PT IP Eval Objective Appearance Patient Behavior Appropriate Patient Orientation Person Place Time Speech Pattern Clear Ambulation Patient Able to Ambulate Yes Ambulation Observation IP General Gait Pattern Observation No Deviations/Normal Ambulation Distance (feet) 40 Ambulation Assistive Device None Balance Ability to Arise Able, w/o using arms Sitting Balance Steady, safe Standing Balance Narrow stance w/o support Dynamic Sitting Balance Ability Normal Dynamic Standing Balance Ability Normal Transfers Bed Transfer Ability Independent Chair Transfer Ability Independent Sit to Stand Bed Transfer Ability Independent Sit to Stand Chair Transfer Ability Independent MMT LLE PT MMT WFL RLE PT MMT WFL Rehab PT IP prob,goals,plan Problems Date of Evaluation: 11/19/17 Rehab Potential Rehab Potential Good Equipment Needs Assistive Devices None / NA Discharge Plan PT Discharge Plan Pt is independent with all mobility, no inpatient therapy needs at this time. G -code Required Yes Eval Complexity Eval Charge Codes 01721 - Moderate Complexity G Codes PT Current Status Mobility PT Current Status Modifier CI-At least 1% but less than 20% impaired, limited or restricted PT Goal Status Mobility PT Goal Status Modifer CI-At least 1% but less than 20% impaired, limited or restricted PHYSICIAN CERTIFICATION: I certify the specified therapy services for Naida Sommer are required, authorized, and reviewed every 30 days.
--- NOTE | 2017-11-19 15:23 | DIET.NUTRFU ---
Po intakes remain poor. Pt has a stronger voice and less cough. She reports that she usually does not eat much but drinks a lot of liquids at home. She usually drinks a gallon of sweet tea at home a day. Diet has been supplemented with liquid nutritional supplements chocolate Ensure and pt drinking these with good acceptance. Pt encouraged to continue with Ensure at home.
--- NOTE | 2017-11-19 16:50 | PC.NURSE ---
PT LUNGS HAVE EXPIRATORY WHEEZES THROUGHOUT. BOWEL SOUNDS NORMAL. HEART SOUNDS NORMAL. PT HAD PHYSICAL THERAPY EVAL AND OT EVAL THIS SHIFT. PT WAS UP TO CHAIR THIS MORNING. PT HAS BEEN OFF 02 THIS SHIFT AND IS NOT HAVING ANY COMPLICATIONS OR COMPLAINTS. CALL LIGHT IN REACH. NONSKIDS ON. BED IN LOWEST POSITION. WILL CONTINUE TO MONITOR PT CONDITION.
--- NOTE | 2017-11-19 19:23 | PC.NURSE ---
handoff report given to alan madrid
[2017-11-20] VITALS: BP 176/97; PULSE 79; RESP 24; TEMP 36.5; O2SAT 93
[2017-11-20 04:00] VITALS: BP 166/94; PULSE 80; RESP 22; TEMP 36.7; O2SAT 92
--- NOTE | 2017-11-20 04:16 | PC.NURSE ---
LAYING IN BED RESTING, HAS SLEPT MOST OF SHIFT. CAN SEE A BIG IMPROVEMENT. PATIENT IS ABLE TO TALK MORE WITHOUT BEING SO SOA. LUNGS HAS SOME WHEEZES THROUGHOUT. RESP ARE STILL SOME RAPID AT TIMES, 24-26 BPM. STATES THIS IS HER NORM. HAS BEEN UP TO BSC WITH STANDBY ASSIST. TOLERATED WELL. TEDS ARE ON, IV IS PATENT. STATES HAS NO NEEDS AT THIS TIME. WILL CONTINUE TO MONITOR. BED LOCKED IN LOW POSITION, SIDE RALES UP X 2, CALL LIGHT WITHIN REACH.
--- NOTE | 2017-11-20 06:29 | PC.NURSE ---
PT REFUSED A ABTH THIS SHIFT. PT STATED SHE HAD A BATH YESTERDAY AFTERNOON. NURSE WAS NOTIFIED
--- NOTE | 2017-11-20 07:22 | PC.NURSE ---
Received report from Danielle Blackmon RN
[2017-11-20 08:00] VITALS: BP 180/92; PULSE 75; RESP 18; TEMP 36.6; O2SAT 93
--- NOTE | 2017-11-20 08:04 | PC.NURSE ---
LATE ENTRY- PT REFUSED A BATH. .PT STATED SHE HAD A BATH PER DAY SHIFT. NURSE NOTIFIED
--- NOTE | 2017-11-20 08:15 | HMH.DCSUM ---
General - General Admission date: 11/16/17 <Juanpablo Wallace - 11/20/17 08:32> Discharge date: 11/20/17 <Kerri Dorantes - 11/24/17 21:17> HPI HPI: Ms Sommer is a 67 year old female with a history of COPD, tobacco use, chronic low back and leg pain, and depression who describes being sick for several weeks. She started with a sore throat 11/06/17 which progressed to a frequent cough, fever, body aches, headache and also nausea and diarrhea. She has not been able to eat or drink much for the past week. She has been taking some of her meds. She presented to the ER last PM and was felt to have a new infiltrate on the CXR. She was adm for ABX, IVF nebs, and further evaluation and treatment. <GeovannimireyaKerri - 11/24/17 21:17> Objective Vital signs: Temp Pulse Resp BP Pulse Ox 97.8 F 75 18 180/92 93 L 11/20/17 08:00 11/20/17 08:00 11/20/17 08:00 11/20/17 08:00 11/20/17 08:00 <Kerri Dorantes - 11/24/17 21:17> Temp Pulse Resp BP Pulse Ox 98.0 F 80 22 166/94 92 L 11/20/17 04:00 11/20/17 04:00 11/20/17 04:00 11/20/17 04:00 11/20/17 04:00 <Juanpablo Wallace - 11/20/17 08:32> Narrative: - Constitutional no acute distress Comments: appears not to feel well - *Routine HEENT Exam Head: Present: normocephalic, atraumatic Eye: Present: PERRL, exophthalmos. Absent: conjunctival icterus ENT: Present: mucous membranes dry , OP erythema - *Routine Neck Exam Present: supple, full ROM. Absent: carotid bruit, lymphadenopathy, thyromegaly, swelling - *Routine Respiratory Exam Present: diminished air movement (posteriorly) Comments: bilateral crackles and wheezes anteriorly - *Routine Cardiovascular Exam Present: RRR - *Routine Abdominal Exam Present: soft, normoactive bowel sounds. Absent: tenderness, distended, guarding, organomegaly, mass - *Routine Extremities Exam Absent: edema, full ROM, calf tenderness - *Routine Neurological Exam Present: alert, oriented X3 - Routine Psychiatric Exam Comments: flat affect <Kerri Dorantes - 11/24/17 21:17> Hospital Course Hospital Course: She was started on IVF, NEB TX, steriods, ABX; some of home meds were restarted. She improved and PT/OT were consulted. She was weaned to oral steroids. Her oxygen was weaned. A repeat CXR showed some improvement in her pneumonia. Sputum was positive for Staph Aureus which was sensitive to cipro. She was stable to be discharged on cipro, a medrol dosepack, and cough medication. <Kerri Dorantes - 11/24/17 21:17> Results Labs on day of discharge: Preliminary micro results at discharge 11/17/17 03:30 Sputum Culture - Preliminary Sputum - Expectorated Sputum Staphylococcus aureus <RodrigoJuanpablo Fran - 11/20/17 08:32> DS: Diagnosis - Discharge Diagnosis (1) RLL pneumonia Status: Acute (2) Acute exacerbation of chronic obstructive airways disease Status: Acute (3) Lung nodule seen on imaging study (4) Acquired hypothyroidism Status: Chronic (5) COPD (chronic obstructive pulmonary disease) (6) Chronic low back pain Status: Chronic (7) Generalized anxiety disorder Status: Chronic (8) Tobacco abuse Status: Chronic <RodrigoJuanpablo Fran - 11/20/17 08:35> (1) Staphylococcus aureus pneumonia Status: Acute (2) RLL pneumonia Status: Acute (3) Acute exacerbation of chronic obstructive airways disease Status: Acute (4) Lung nodule seen on imaging study Status: Acute (5) Acquired hypothyroidism Status: Chronic (6) COPD (chronic obstructive pulmonary disease) Status: Chronic (7) Chronic low back pain Status: Chronic (8) Generalized anxiety disorder Status: Chronic (9) Tobacco abuse Status: Chronic <Kerri Dorantes - 11/24/17 21:17> Meds Home Medications Medication Instructions Recorded Confirmed Type Atorvastatin Calcium
--- NOTE | 2017-11-20 08:28 | P.DS_ITS ---
General - General Admission date: 11/16/17 <Juanpablo Wallace - 11/20/17 08:32> Discharge date: 11/20/17 <Kerri Dorantes - 11/24/17 21:17> HPI HPI: Ms Sommer is a 67 year old female with a history of COPD, tobacco use, chronic low back and leg pain, and depression who describes being sick for several weeks. She started with a sore throat 11/06/17 which progressed to a frequent cough, fever, body aches, headache and also nausea and diarrhea. She has not been able to eat or drink much for the past week. She has been taking some of her meds. She presented to the ER last PM and was felt to have a new infiltrate on the CXR. She was adm for ABX, IVF nebs, and further evaluation and treatment. <GeovannimireyaKerri - 11/24/17 21:17> Objective Vital signs: Temp Pulse Resp BP Pulse Ox 97.8 F 75 18 180/92 93 L 11/20/17 08:00 11/20/17 08:00 11/20/17 08:00 11/20/17 08:00 11/20/17 08:00 <Kerri Dorantes - 11/24/17 21:17> Temp Pulse Resp BP Pulse Ox 98.0 F 80 22 166/94 92 L 11/20/17 04:00 11/20/17 04:00 11/20/17 04:00 11/20/17 04:00 11/20/17 04:00 <Juanpablo Wallace - 11/20/17 08:32> Narrative: - Constitutional no acute distress Comments: appears not to feel well - *Routine HEENT Exam Head: Present: normocephalic, atraumatic Eye: Present: PERRL, exophthalmos. Absent: conjunctival icterus ENT: Present: mucous membranes dry , OP erythema - *Routine Neck Exam Present: supple, full ROM. Absent: carotid bruit, lymphadenopathy, thyromegaly , swelling - *Routine Respiratory Exam Present: diminished air movement (posteriorly) Comments: bilateral crackles and wheezes anteriorly - *Routine Cardiovascular Exam Present: RRR - *Routine Abdominal Exam Present: soft, normoactive bowel sounds. Absent: tenderness, distended, guarding, organomegaly, mass - *Routine Extremities Exam Absent: edema, full ROM, calf tenderness - *Routine Neurological Exam Present: alert, oriented X3 - Routine Psychiatric Exam Comments: flat affect <Kerri Dorantes - 11/24/17 21:17> Hospital Course Hospital Course: She was started on IVF, NEB TX, steriods, ABX; some of home meds were restarted. She improved and PT/OT were consulted. She was weaned to oral steroids. Her oxygen was weaned. A repeat CXR showed some improvement in her pneumonia. Sputum was positive for Staph Aureus which was sensitive to cipro. She was stable to be discharged on cipro, a medrol dosepack, and cough medication. <Kerri Dorantes - 11/24/17 21:17> Results Labs on day of discharge: Preliminary micro results at discharge 11/17/17 03:30 Sputum Culture - Preliminary Sputum - Expectorated Sputum Staphylococcus aureus <Juanpablo Wallace - 11/20/17 08:32> DS: Diagnosis - Discharge Diagnosis (1) RLL pneumonia Status: Acute (2) Acute exacerbation of chronic obstructive airways disease Status: Acute (3) Lung nodule seen on imaging study (4) Acquired hypothyroidism Status: Chronic (5) COPD (chronic obstructive pulmonary disease) (6) Chronic low back pain Status: Chronic (7) Generalized anxiety disorder Status: Chronic (8) Tobacco abuse Status: Chronic <Juanpablo Wallace - 11/20/17 08:35> (1) Staphylococcus aureus pneumonia Status: Acute
--- NOTE | 2017-11-20 08:29 | HMH.ACPN ---
Internal Medicine - PN: Subj *Date: 11/20/17 *Time: 10:30 Interval history: States she is feeling better today. She has less shortness of air and her cough is improved. Denies any pain. She slept well and has been eating off and on. Exam Vital signs and Labs for Last 24 Hours: Temp Pulse Resp BP Pulse Ox 98.0 F 80 22 166/94 92 L 11/20/17 04:00 11/20/17 04:00 11/20/17 04:00 11/20/17 04:00 11/20/17 04:00 I & O for Last 24 hours: Intake & Output 11/17/17 11/18/17 11/19/17 11/20/17 11:59 11:59 11:59 11:59 Intake Total 1187 / 2027 1689 / 1689 2954 / 2954 2270 / 2270 Output Total 102 / 102 850 / 850 900 / 900 Balance 1085 / 1925 839 / 839 2954 / 2954 1370 / 1370 Microbiology Reports for the Last 24 Hours: Microbiology 11/17/17 03:30 Sputum - Expectorated Sputum Gram Stain - Final 11/17/17 03:30 Sputum - Expectorated Sputum Sputum Culture - Preliminary Staphylococcus aureus - Constitutional no acute distress - *Routine Respiratory Exam Present: wheezes (on anterior chest) - *Routine Cardiovascular Exam Present: RRR - *Routine Abdominal Exam Present: soft, normoactive bowel sounds. Absent: tenderness - *Routine Extremities Exam Absent: edema Assessment and Plan (1) RLL pneumonia Status: Acute Qualifiers: Pneumonia type: due to unspecified organism Qualified Code(s): J18.1 - Lobar pneumonia, unspecified organism Category: Medical Code(s): J18.1 - Lobar pneumonia, unspecified organism (2) Acute exacerbation of chronic obstructive airways disease Status: Acute Category: Medical Code(s): J44.1 - Chronic obstructive pulmonary disease with (acute) exacerbation (3) Lung nodule seen on imaging study Status: Acute Category: Medical Code(s): R91.1 - Solitary pulmonary nodule (4) Acquired hypothyroidism Status: Chronic Category: Medical Code(s): E03.9 - Hypothyroidism, unspecified (5) COPD (chronic obstructive pulmonary disease) Status: Chronic Category: Medical Code(s): J44.9 - Chronic obstructive pulmonary disease, unspecified (6) Chronic low back pain Status: Chronic Category: Medical Code(s): M54.5 - Low back pain; G89.29 - Other chronic pain (7) Generalized anxiety disorder Status: Chronic Category: Medical Code(s): F41.1 - Generalized anxiety disorder (8) Tobacco abuse Status: Chronic Category: Medical Code(s): Z72.0 - Tobacco use - Assessment and plan all Dx Assessment and Plan for all problems:: Patient has improved and is stable to be discharged today. She will be discharged on cipro, a medrol dosepack, and cough medication. Patient seen and examined. Concur with above assessment and plan for discharge. Discussed smoking cessation and she states she does not plan ot smoke any more. Will f/u in office in 1 week.
--- NOTE | 2017-11-20 10:09 | PC.NURSE ---
PT TRANSPORTED OFF FLOOR VIA WHEELCHAIR BY [facility] STAFF AND ACCOMPANIED BY SON FOR DISCHARGE TO HOME VIA PRIVATE VEHICLE.
--- NOTE | 2017-11-20 13:28 | HMH.ACPN ---
Internal Medicine - PN: Subj *Date: 11/20/17 *Time: 13:28 Exam Vital signs and Labs for Last 24 Hours: Temp Pulse Resp BP Pulse Ox 97.8 F 75 18 180/92 93 L 11/20/17 08:00 11/20/17 08:00 11/20/17 08:00 11/20/17 08:00 11/20/17 08:00 I & O for Last 24 hours: Intake & Output 11/17/17 11/18/17 11/19/17 11/20/17 23:59 23:59 23:59 23:59 Intake Total 2636 / 2636 1440 / 1440 4024 / 4024 240 / 240 Output Total 952 / 952 500 / 500 400 / 400 Balance 1684 / 1684 1440 / 1440 3524 / 3524 -160 / -160 Weight 86.268 kg Microbiology Reports for the Last 24 Hours: Microbiology 11/17/17 03:30 Sputum - Expectorated Sputum Gram Stain - Final 11/17/17 03:30 Sputum - Expectorated Sputum Sputum Culture - Preliminary Staphylococcus aureus Assessment and Plan (1) RLL pneumonia Status: Acute Qualifiers: Pneumonia type: due to unspecified organism Qualified Code(s): J18.1 - Lobar pneumonia, unspecified organism Category: Medical Code(s): J18.1 - Lobar pneumonia, unspecified organism The patient's infection will respond to the chosen ABx?: Yes Is the patient receiving the right drug, dose, and route?: Yes Could a more targeted ABx be ordered?: No (PATIENT D/C ON PO CIPROFLOXACIN 500 MG X7 DAYS)
== END 2017-11-20 10:00 | disposition home or self-care (01) ==
LOC: ER 22:02 → 2ND 22:17
PROVIDERS: Admitting Provider Family Medicine; Emergency Provider Emergency Medicine; Family Provider Family Medicine; Visit Provider Family Medicine
DX: J44.1 Chronic obstructive pulmonary disease with (acute) exacerbation (principal); J15.211 Pneumonia due to Methicillin susceptible Staphylococcus aureus; J44.0 Chronic obstructive pulmonary disease with (acute) lower respiratory infection; Z72.0 Tobacco use; I10 Essential (primary) hypertension; R91.1 Solitary pulmonary nodule; E03.9 Hypothyroidism, unspecified; M54.5 Low back pain; G89.29 Other chronic pain; Z99.81 Dependence on supplemental oxygen
CPT/HCPCS: 36415; 71045; 71046; 80048; 80053; 82803; 82962; 83735; 84484; 85025; 87070; 87077; 87186; 87205; 87275; 87276; 87507; 94640; 94760; 94761; 96360; 96365; 96367; 97162; 97165; 99283; G0378

== ENCOUNTER → 2018-01-01 15:21 | Outpatient (CLI) | payer MEDICARE, MEDICAID, SELFPAY ==
--- NOTE | 2018-01-01 15:33 | XR_ITS ---
XR DEXA axial skeleton HISTORY: ITS.REASON: POST MENOPAUSAL ORDERING PHYSICIAN: Juanpablo Wallace MD PATIENT AGE: 67 years COMPARISON: None FINDINGS: The BMD measured at the Right femoral neck is 0.730 g/cm squared with a T score of T-2.2 . This is considered Osteopenic according to the World Health Organization criteria. Fracture risk is Moderate. Treatment is advised. The L1 and L4 density has a T score of -0.9 IMPRESSION: Osteopenia with moderate fracture risk. Treatment is advised. Recommend follow-up exam December 2019
--- NOTE | 2018-01-01 15:33 | MM_ITS ---
MM Dig screening mamm BI w/CAD CAD Screening COMPARISON: Digital mammograms 03/06/2012 INDICATION: There is no personal or family history of breast cancer. There have been previous biopsies on each breast for benign disease. TECHNIQUE: Standard CC and MLO images were obtained. R2 CAD reviewed. FINDINGS: Moderate fibroglandular densities are seen in the central portions of both breast and the findings are bilateral and symmetrical. There is a biopsy clip left breast. There is minimal post biopsy scarring just above the nipple right breast. There is no suspicious lesion and there are no suspicious microcalcifications. There are couple of benign-appearing calcifications left breast. IMPRESSION: Fibrofatty parenchyma with no suspicious lesion seen recommend yearly follow-up BI-RADS Category: 2 Benign Finding(s) RECOMMENDED FOLLOW-UP: 1YR - 1 YEAR FOLLOW-UP (A letter has been sent to the patient regarding results of the study.)
== END ==
PROVIDERS: Family Provider Family Medicine; PCP Family Medicine; Visit Provider Family Medicine
DX: Z12.31 Encounter for screening mammogram for malignant neoplasm of breast (principal); Z78.0 Asymptomatic menopausal state; Z13.820 Encounter for screening for osteoporosis
CPT/HCPCS: 77067; 77080

== ENCOUNTER → 2019-10-11 13:17 | Outpatient (CLI) | payer MEDICARE, SELFPAY | PROVIDERS: PCP Family Medicine; Visit Provider Family Medicine | DX: R91.1 Solitary pulmonary nodule (principal) ==

== ENCOUNTER → 2019-11-02 09:06 | Outpatient (CLI) | payer MEDICARE, SELFPAY ==
--- NOTE | 2019-11-02 09:28 | CT_ITS ---
PROCEDURE: CT CHEST WO CON CLINICAL INDICATION: LUNG NODULE COMPARISON: LDCTLCAS LDCT FOR LUNG CA SCREEN from 03/14/2017 TECHNIQUE: Axial images obtained with sagittal and coronal reformats. All CT scans at the facility use one or more dose reduction, viz: automated exposure control, ma/kV adjustment per patient size (including targeted exams where dose is matched to indication, i.e. head), or iterative reconstruction technique. FINDINGS: HEART: Unremarkable. Normal heart size. No significant pericardial effusion. MEDIASTINAL AND HILAR STRUCTURES: No mediastinal or hilar mass evident. No dominant adenopathy. PULMONARY ARTERIES: No pulmonary embolus evident. AORTA: No acute finding. Calcified plaques. LUNGS:There is a new 12 millimeter noncalcified nodule in the right upper lobe. There is also a new 4 millimeter noncalcified irregular nodule in the periphery of the left upper lobe, image number 27. The previously described 11 millimeter spiculated peripheral right upper lobe density is stable considering some difference in measuring technique. There is a stable noncalcified subcentimeter nodule in the superior segment right lower lobe on image number 33 there are see a few other scattered small linear densities in the right lung and hazy indistinct densities in the superior segment right lower lobe and the anterior segment left upper lobe which are stable. The mild emphysematous changes in the lung kruse remain stable. Airway structures are patent. PLEURAL SPACES: Unremarkable. BONY STRUCTURES: . LYMPH NODES: No enlarged lymph nodes evident. UPPER ABDOMEN: There is a stable gallstone without pericholecystic fluid or biliary dilatation. ADDITIONAL FINDINGS: No other significant abnormalities. IMPRESSION: Interval development of bilateral upper lobe noncalcified nodules larger in the right upper lobe as discussed above. Metastatic neoplastic process should be considered. The other smaller mural ill-defined densities are stable and there is a stable superior segment right lower lobe small noncalcified nodule. Uncomplicated cholelithiasis. Recommendation: Because of indication of malignant process, tissue sampling could be considered although because the location and emphysema risk of pneumothorax would be considered fairly high. Therefore consider PET/CT scan. Dictated by: Alfred Cheung 11/02/2019 11:20 Electronically signed by Alfred Cheung in [facility] 11/02/2019 11:20
== END ==
PROVIDERS: PCP Family Medicine; Visit Provider Family Medicine
DX: R91.1 Solitary pulmonary nodule (principal)
CPT/HCPCS: 71250

== ENCOUNTER → 2021-05-05 11:58 | Outpatient (CLI) | payer MEDICARE, BC, SELFPAY | PROVIDERS: Visit Provider Internal Medicine Gastroenterology | DX: Z01.812 Encounter for preprocedural laboratory examination (principal); Z20.822 Contact with and (suspected) exposure to COVID-19; Z13.810 Encounter for screening for upper gastrointestinal disorder | CPT/HCPCS: U0003 ==

== ENCOUNTER 2021-05-07 07:08 | Day surgery (SDC) | payer BC, MEDICARE, SELFPAY ==
[2021-05-02 10:12] VITALS: BMI 30.5
--- NOTE | 2021-05-07 08:05 | SUR.PHASEII ---
patient cancelled her procedure. Stated office told her procedure was at 0730 and she couldn't wait around. Patient was preop by Nguyễn and instructed to be here at 0830 for 0930 procedure.
== END 2021-05-07 08:07 | disposition home or self-care (01) ==
PROVIDERS: PCP Emergency Medicine; Visit Provider Internal Medicine Gastroenterology
PROC: 0DJ08ZZ Inspection of Upper Intestinal Tract, Via Natural or Artificial Opening Endoscopic (ICD-10-PCS; CPT 43235; principal; 2021-05-07 09:30)
DX: Z53.20 Procedure and treatment not carried out because of patient's decision for unspecified reasons (principal)

== ENCOUNTER → 2021-05-31 13:33 | Outpatient (CLI) | payer MEDICARE, BC, SELFPAY ==
[2021-05-31 14:22] LABS: Alanine Aminotransferase 16 U/L (12-78); Albumin Level 4.5 g/dl (3.5-5.0); Albumin/Globulin Ratio 1.8 (1.1-1.8); Alkaline Phosphatase 87 U/L (38-126); Aspartate Amino Transferase 25 U/L (14-36); Bilirubin,Total 0.3 mg/dl (0.2-1.3); Blood Urea Nitrogen 12 mg/dl (7-17); Calcium 9.6 mg/dl (8.4-10.2); Carbon Dioxide 32 mmol/L (22.0-30.0); Chloride 104 mmol/L (98-107); Chol/HDL Ratio 3.6 (1-3.5); Cholesterol 184 mg/dl (140-200); Estimated Glomerular Filt Rate 99 ml/min (>60); GFR (African American) 119 ML/MIN (>60); Globulin 2.5 g/dL (1.3-3.2); Glucose 93 mg/dl (74-100); HDL Cholesterol 51 mg/dl (40-60); Sodium 143 mmol/L (136-145); Triglycerides 353 mg/dl (30-150); VLDL Cholesterol 71 mg/dL (0-40)
[2021-05-31 14:23] LABS: Basophils # 0.1 K/mm3 (0-0.2); Basophils % 0.9 % (0.1-2.0); Eosinophils # 0.2 K/mm3 (0.0-0.4); Eosinophils % 1.5 % (0.1-12.0); Hematocrit 46.4 % (37.0-47.0); Hemoglobin 15.2 g/dL (12.2-16.2); Lymphocytes # 2.9 K/mm3 (0.7-4.5); Lymphocytes % 24.7 % (10-50); Mean Corpuscular HGB Conc 32.7 g/dL (31.8-35.4); Mean Corpuscular Hemoglobin 28.4 pg (27.0-31.2); Mean Corpuscular Volume 86.8 fl (81-99); Monocytes # 0.9 K/mm3 (0.1-1.0); Monocytes % 7.5 % (1.7-9.3); Neutrophils # 7.6 K/mm3 (1.8-7.8); Neutrophils % 65.4 % (37.0-80.0); Platelet Count 330 K/mm3 (142-424); Red Blood Count 5.35 M/mm3 (4.20-5.40); Red Cell Distribution Width 14.9 % (11.5-17.5); White Blood Count 11.6 K/mm3 (4.8-10.8)
[2021-05-31 14:32] LABS: Direct LDL Cholesterol 79.89 mg/dL (100-129)
[2021-05-31 15:05] LABS: Free T4 (Free Thyroxine) 0.94 ng/dl (0.78-2.19)
[2021-05-31 20:20] LABS: 25-OH Vitamin D, Total 19.2 ng/mL (30-100)
== END ==
PROVIDERS: Visit Provider Physician Assistant
DX: E03.9 Hypothyroidism, unspecified (principal); E55.9 Vitamin D deficiency, unspecified; J44.9 Chronic obstructive pulmonary disease, unspecified; F41.1 Generalized anxiety disorder
CPT/HCPCS: 80053; 80061; 82306; 84439; 84443; 85025

== ENCOUNTER → 2021-06-22 14:27 | Outpatient (CLI) | payer MEDICARE, BC, SELFPAY ==
--- NOTE | 2021-06-22 14:28 | CT_ITS ---
PROCEDURE: CT LUNG SCREENING CLINICAL INDICATION: lung cancer screening COMPARISON: CT LDCTLCAS LDCT FOR LUNG CA SCREEN from 03/14/2017 TECHNIQUE: The exam was performed on a GE Light Speed [address] scanner using 2.90 mGy CTDI. A low dose helical CT CHEST was performed on a multi-detector scanner. All CT scans at the facility use one or more dose reduction, viz: automated exposure control, ma/kV adjustment per patient size (including targeted exams where dose is matched to indication, i.e. head), or iterative reconstruction technique. The LDCT was performed in a facility that meets the criteria for the screening program. Data regarding this exam was submitted to ACR which is an approved registry. The order for this exam indicates that it came as a result of a lung cancer screening counseling shard decision-making visit that included all the elements required of such a visit including smoking cessation. The radiologist interpreting this exam meets the CMS criteria for the LDCT lung cancer screening program. The exam is reported using the Lung-RADS classification scale and reported to the ACR registry. NOTE: This study was performed for the specific purposes of lung cancer screening and is not an alternative to diagnostic chest CT. RADIATION DOSE: CTDI vol(CT dose Index-volume) = 2.90mG DLP (Dose Length Product) = mGcm FINDINGS: Most recent exam for comparison is 11/02/2019. On that exam the patient had multiple pulmonary nodules including 2 suspicious nodules in the right upper lobe. This exam is performed for screening and not a diagnostic CT. Spiculated nodule is present in the right upper lobe laterally at 7 mm and is slightly smaller previously at 8 mm. A 2nd spiculated nodule is present in the right upper lobe centrally with a maximum diameter of 15 mm cephalad caudad previously 12 mm. The central volume of the nodule appears slightly less. The increase in size could be related to scarring. Recurrence neoplasm is not excluded. Please correlate with most recent study which is not available at this institution.. The volume of the nodule is less on today's study. There are COPD changes with scattered areas of scarring. A 7 mm nodules present in the superior segment of the right lower lobe unchanged. A 6 mm nodules present in the right middle lobe unchanged. 5 mm nodule right lower lobe 4/42 slightly more prominent but could be related to slice orientation artifact. There is mild diffuse bronchial thickening. Ground-glass opacity noted in the lingula and left lower lobe 4/51 and . Probably not significantly changed in the lingula and slightly more prominent in the left lower lobe. No effusions. There are stable small mediastinal lymph nodes. Otherfindings: Cholelithiasis. IMPRESSION: Lung-RADS Category 4A Suspicious. Previously there were at least 2 highly suspicious spiculated nodules.. I do not have any previous studies after 11/02/2019 for comparison. These 2 nodules appear less voluminous however, the nodule centrally is slightly larger in the cephalad caudad dimension which could be related to scarring/treatment changes. Please correlate with most recent exam. If no previous exams are available then would recommend follow-up chest CT in 3 months with contrast. Follow-up: As above. [address] Chest with contrast; PET/CT may be used when there is a greater than or equal to a 8 mm solid component. Dictated by: Jose Champion MD 06/26/2021 08:17 Jose Champion MD in [facility] 06/26/2021 08:17
== END ==
PROVIDERS: PCP Emergency Medicine; Visit Provider Emergency Medicine
DX: Z87.891 Personal history of nicotine dependence (principal); Z12.2 Encounter for screening for malignant neoplasm of respiratory organs
CPT/HCPCS: 71271

== ENCOUNTER → 2021-07-21 09:55 | Outpatient (CLI) | payer MEDICARE, BC, SELFPAY | PROVIDERS: Visit Provider Internal Medicine Gastroenterology | DX: Z01.812 Encounter for preprocedural laboratory examination (principal) | CPT/HCPCS: C9803; U0003; U0005 ==

== ENCOUNTER 2021-09-12 18:22 | Inpatient (IN) | payer MEDICARE, BC, SELFPAY ==
[2021-09-12 18:31] VITALS: BMI 31.3
--- NOTE | 2021-09-12 18:32 | XR_ITS ---
PROCEDURE INFORMATION: Exam: XR Chest Exam date and time: 09/12/2021 6:32 PM Age: 70 years old Clinical indication: Cough TECHNIQUE: Imaging protocol: XR of the chest. Views: 1 view. COMPARISON: CT CHEST WO CON 11/02/2019 9:31 AM FINDINGS: Lungs: Subtle interstitial haziness could reflect interstitial pneumonia. Granulomatous change. No consolidation. Pleural spaces: Unremarkable. No pleural effusion. No pneumothorax. Heart/Mediastinum: Unremarkable. No cardiomegaly. Bones/joints: Unremarkable. IMPRESSION: Subtle interstitial haziness could reflect interstitial pneumonia.
[2021-09-12 18:33] VITALS: BP 149/76; PULSE 90; RESP 18; TEMP 36.9; O2SAT 94; BMI 31.3
--- NOTE | 2021-09-12 18:48 | CT_ITS ---
PROCEDURE INFORMATION: Exam: CT Abdomen And Pelvis With Contrast Exam date and time: 09/12/2021 6:48 PM Age: 70 years old Clinical indication: Nausea; Abdominal pain; Generalized; Prior surgery; Surgery date: 6+ months; Surgery type: Hysterectomy TECHNIQUE: Imaging protocol: Computed tomography of the abdomen and pelvis with contrast. Radiation optimization: All CT scans at this facility use at least one of these dose optimization techniques: automated exposure control; mA and/or kV adjustment per patient size (includes targeted exams where dose is matched to clinical indication); or iterative reconstruction. Contrast material: ISOVUE; Contrast volume: 75 ml; Contrast route: IV; COMPARISON: ABDPELW/O CT ABD PELVIS W/O CONTRAST 09/18/2014 3:45 PM FINDINGS: Liver: Normal. No mass. Gallbladder and bile ducts: Large gallstone. Pancreas: Normal. No ductal dilation. Spleen: Normal. No splenomegaly. Adrenal glands: Normal. No mass. Kidneys and ureters: Normal. No hydronephrosis. Stomach and bowel: Constipation. No colitis. No small bowel obstruction. Appendix: No evidence of appendicitis. Intraperitoneal space: Unremarkable. No free air. No significant fluid collection. Vasculature: Unremarkable. No abdominal aortic aneurysm. Lymph nodes: Unremarkable. No enlarged lymph nodes. Urinary bladder: Emphysematous cystitis with gas in the wall of the urinary bladder. There is gas that is also localized extraluminal to the bladder. Reproductive: Hysterectomy. Bones/joints: Unremarkable. No acute fracture. Soft tissues: Unremarkable. IMPRESSION: Findings concerning for severe emphysematous cystitis with perforation.
--- NOTE | 2021-09-12 18:49 | HMH.EDGENADL ---
ED Disposition Clinical Impression: Pneumonia Qualifiers: Pneumonia type: due to unspecified organism Laterality: unspecified laterality Lung location: unspecified part of lung Qualified Code(s): J18.9 - Pneumonia, unspecified organism UTI (urinary tract infection) Qualifiers: Urinary tract infection type: site unspecified Hematuria presence: without hematuria Qualified Code(s): N39.0 - Urinary tract infection, site not specified Abdominal pain Qualifiers: Abdominal location: generalized Qualified Code(s): R10.84 - Generalized abdominal pain Disposition: Admitted as Observation Condition on Discharge: Fair Referrals: Mark Mcclain MD [Primary Care Provider] - - Critical Care Critical Care Time: No Attestation: On 09/12/21, the high probability of a clinically significant, sudden or life threatening deterioration of the following system(s) required my full and direct attention, intervention and personal management. The time I documented below is in addition to time spent performing reported procedures but includes the following listed in this critical care notation. Medical Decision Making - Alex Inquiry Pt receiving controlled substance: No Vital Signs: 09/12/21 18:33 Temperature 98.4 F Temperature Source Oral Pulse Rate [Left Radial] 90 Respiratory Rate 18 Blood Pressure [Right Arm] 149/76 H Blood Pressure Mean [Right Arm] 100 Blood Pressure Source [Right Arm] Automatic Cuff Blood Pressure Position [Right Arm] Sitting 02 Sat by Pulse Oximetry 94 L Oxygen Delivery Method Nasal Cannula Oxygen Flow Rate (LPM) 2 - Lab Data Lab Results 09/12/21 18:28: WBC 19.0 H, RBC 5.56 H, Hgb 16.5 H, Hct 50.7 H, MCV 91.2, MCH 29.7, MCHC 32.5, RDW 14.3, Plt Count 409, MPV 7.9, Neut % (Auto) 73.3, Lymph % (Auto) 19.6, [place] % (Auto) 5.7, Eos % (Auto) 0.9, Baso % (Auto) 0.6, Neut # (Auto) 13.9 H, Lymph # (Auto) 3.7, [place] # (Auto) 1.1 H, Eos # (Auto) 0.2, Baso # (Auto) 0.1 09/12/21 18:28: Sodium 143, Potassium 3.7, Chloride 102, Carbon Dioxide 32 H, Anion Gap 12.7, BUN 9, Creatinine 0.60, Estimated Creat Clear 74, Estimated GFR 99, Est GFR ( Amer) 119, Glucose 111 H, Calcium 9.7, Total Bilirubin 0.4, AST 22, ALT 13, Alkaline Phosphatase 112, Total Protein 7.7, Albumin 4.5, Globulin 3.2, Albumin/Globulin Ratio 1.4, Amylase 57 09/12/21 18:28: Troponin I < 0.01, Lipase 40 09/12/21 18:51: Urine Color Yellow, Urine Appearance Cloudy, Urine pH 6.0, Ur Specific [place] 1.020, Urine Protein Negative, Urine Glucose (UA) Negative, Urine Ketones Negative, Urine Blood 3+, Urine Nitrate Negative, Urine Bilirubin 1+ A, Urine Urobilinogen 0.2, Ur Leukocyte Esterase Trace, Urine RBC 3-5, Urine WBC 10-20, Ur Squamous Epith Cells None, Urine Bacteria 4+ 09/12/21 19:00: Lactate 0.8 Result diagrams: 09/12/21 18:28 09/12/21 18:28 Orders (Tests/Meds): ED MEDICATIONS Generic Name Dose Route Start Last Admin Trade Name Freq PRN Reason Stop Dose Admin Ceftriaxone Sodium 1 gm/ 50 mls @ 100 mls/hr 09/12/21 20:00 09/12/21 20:04 Sodium Chloride IV 09/26/21 19:59 100 mls/hr Q24H DANETTE Administration Azithromycin 500 mg/ Sodium 250 mls @ 250 mls/hr 09/12/21 20:00 09/12/21 20:04 Chloride IV 09/26/21 19:59 250 mls/hr Q24H DANETTE Administration ORDERS Category Date Time Status CT abdomen pelvis w con Stat Cat Scan 09/12/21 18:48 Ordered Complete Blood Count Auto Diff Stat Lab 09/12/21 18:28 Results Rapid PCR Covid and Flu A/B Stat Lab 09/12/21 19:00 Received Troponin I Q3H Lab 09/12/21 22:00 Ordered Troponin I Q3H Lab 09/13/21 01:00 Ordered Blood Culture Stat Micro 09/12/21 19:00 Received Urine Culture Stat Micro 09/12/21 18:51 Received - Radiology Data #1 Image(s): Chest Image Reviewed: Yes I have reviewed radiologist's interpretation PROCEDURE INFORMATION: Exam: XR Chest Exam date and time: 09/12/2021 6:32 PM Age: 70 years old Clinical indication: Cough TECHNIQUE: Imaging p
[2021-09-12 19:02] LABS: Alanine Aminotransferase 13 U/L (12-78); Albumin Level 4.5 g/dl (3.5-5.0); Albumin/Globulin Ratio 1.4 (1.1-1.8); Alkaline Phosphatase 112 U/L (38-126); Amylase 57 U/L (30-110); Anion Gap 12.7 mEq/L (5-15); Aspartate Amino Transferase 22 U/L (14-36); Bilirubin,Total 0.4 mg/dl (0.2-1.3); Blood Urea Nitrogen 9 mg/dl (7-17); Calcium 9.7 mg/dl (8.4-10.2); Carbon Dioxide 32 mmol/L (22.0-30.0); Chloride 102 mmol/L (98-107); Creatinine Clearance Estimated 74 mL/min (50-200); Estimated Glomerular Filt Rate 99 ml/min (>60); GFR (African American) 119 ML/MIN (>60); Globulin 3.2 g/dL (1.3-3.2); Glucose 111 mg/dl (74-100); Lipase 40 U/L (23-300); Potassium 3.7 mmoL/L (3.5-5.1); Sodium 143 mmol/L (136-145); Total Protein,Serum 7.7 g/dl (6.3-8.2)
[2021-09-12 19:03] LABS: Basophils # 0.1 K/mm3 (0-0.2); Basophils % 0.6 % (0.1-2.0); Eosinophils # 0.2 K/mm3 (0.0-0.4); Eosinophils % 0.9 % (0.1-12.0); Hematocrit 50.7 % (37.0-47.0); Hemoglobin 16.5 g/dL (12.2-16.2); Lymphocytes # 3.7 K/mm3 (0.7-4.5); Lymphocytes % 19.6 % (10-50); Mean Corpuscular HGB Conc 32.5 g/dL (31.8-35.4); Mean Corpuscular Hemoglobin 29.7 pg (27.0-31.2); Mean Corpuscular Volume 91.2 fl (81-99); Mean Platelet Volume 7.9 fl (7.4-10.4); Monocytes # 1.1 K/mm3 (0.1-1.0); Monocytes % 5.7 % (1.7-9.3); Neutrophils # 13.9 K/mm3 (1.8-7.8); Neutrophils % 73.3 % (37.0-80.0); Platelet Count 409 K/mm3 (142-424); Red Blood Count 5.56 M/mm3 (4.20-5.40); Red Cell Distribution Width 14.3 % (11.5-17.5)
[2021-09-12 19:09] LABS: MANUAL DIFFERENTIAL MANUAL DIFFERENTIAL (MANUAL DIFF)
[2021-09-12 19:16] LABS: Microscopic, Urine URINE MICROSCOPIC (MICROSCOPIC)
--- NOTE | 2021-09-12 19:17 | HMH.ITSTN ---
per RN Lamont to wait on covid test to get back per ER doctor just in case he wants to add an angio chest Elaine over heard her saying it as well
[2021-09-12 19:18] LABS: Troponin I < 0.01 ng/ml (0.00-0.034)
[2021-09-12 19:18] LABS: Coronavirus 19, PCR Not Detected (NotDetected); Influenza A, PCR Not Detected (NotDetected); Influenza B, PCR Not Detected (NotDetected)
[2021-09-12 19:32] LABS: Appearance,Urine CLOUDY (Clear); Blood, Urine 3+ (Negative); Color,Urine YELLOW (Yellow); Glucose,Urine (UA) Negative (Negative); Ketones,Urine Negative (Negative); Leukocyte Esterase,Urine TRACE (Negative); Nitrate,Urine Negative (Negative); Protein,Urine Negative (Negative); Urobilinogen,Urine 0.2 EU/dl (0.2)
[2021-09-12 19:35] LABS: Lactic Acid 0.8 mmol/L (0.7-2.1)
[2021-09-12 19:40] LABS: Bilirubin,Urine 1+ (Negative)
[2021-09-12 19:50] LABS: Bacteria,Urine 4+ /lpf
[2021-09-12 21:13] LABS: Lymphocytes % 22 % (10-50); Monocytes % 9 % (2-9); Neutrophils % 69 % (42-76); Platelet Estimate Normal; Total Cells Counted 100
--- NOTE | 2021-09-12 21:46 | PC.NURSE ---
@2109 Dr. Rendon s/w [facility] @2116 Dr. Rendon s/w Dr. Delgado about ct findings @2120 this RN s/w Maggie @ nightwatch for Gentamycin dosing. ordered dose of 450mg per 100ml NS.
[2021-09-12 22:17] VITALS: BP 171/92; PULSE 101; RESP 18; TEMP 36.6; O2SAT 94
--- NOTE | 2021-09-12 22:17 | PC.NURSE ---
patient up to floor via wheelchair at this time
[2021-09-12 22:18] VITALS: BP 149/76; PULSE 88; RESP 18; TEMP 36.8; O2SAT 97
[2021-09-12 22:40] VITALS: O2SAT 94
[2021-09-13] VITALS (7 sets, daily range): BP systolic 137–167; BP diastolic 47–83; PULSE 79–92; RESP 17–22; TEMP 36.5–37.5; O2SAT 85–96; BMI 30.2
--- NOTE | 2021-09-13 06:20 | PC.NURSE ---
Pt arrived to floor at 2217. Pt c/o mild pain in lower mid abdomen. Pt has been helped to BSC multiple times to urinate t/o shift. 2x assist. Urine appears cloudy and yellow. Pt states she had a fall at home 4 weeks ago. Bed alarm in place for safety.
[2021-09-13 06:40] LABS: Basophils # 0.1 K/mm3 (0-0.2); Eosinophils # 0.2 K/mm3 (0.0-0.4)
[2021-09-13 06:54] LABS: Basophils % 0.5 % (0.1-2.0); Hematocrit 41.7 % (37.0-47.0); Lymphocytes # 2.7 K/mm3 (0.7-4.5); Lymphocytes % 16.2 % (10-50); Mean Corpuscular Hemoglobin 30.3 pg (27.0-31.2); Mean Corpuscular Volume 91.8 fl (81-99); Mean Platelet Volume 7.7 fl (7.4-10.4); Monocytes # 1.2 K/mm3 (0.1-1.0); Neutrophils # 12.7 K/mm3 (1.8-7.8); Neutrophils % 75.3 % (37.0-80.0); Platelet Count 306 K/mm3 (142-424); Red Blood Count 4.55 M/mm3 (4.20-5.40); Red Cell Distribution Width 14.3 % (11.5-17.5); White Blood Count 16.9 K/mm3 (4.8-10.8)
[2021-09-13 06:56] LABS: Hemoglobin 13.8 g/dL (12.2-16.2)
[2021-09-13 06:58] LABS: MANUAL DIFFERENTIAL MANUAL DIFFERENTIAL (MANUAL DIFF)
[2021-09-13 08:30] LABS: Anisocytosis 1+; Eosinophils % 1 % (0-3); Hypochromasia 1+; Lymphocytes % 14 % (10-50); Macrocytosis 1+; Monocytes % 5 % (2-9); Neutrophils % 80 % (42-76); Platelet Estimate Normal; Total Cells Counted 100
--- NOTE | 2021-09-13 08:37 | HMH.PHACONS ---
- Pharmacy Consult Date: 09/13/21 Time: 08:37 Referring provider: DR. HATHAWAY Reason for Consult:: GENTAMICIN DOSING Allergies and ADEs:: Allergies Allergy/AdvReac Type Severity Reaction Status Date / Time metronidazole Allergy Unknown I-HIVES Verified 08/06/21 13:52 nitrofurantoin Allergy Unknown Unknown Verified 08/06/21 13:52 [From MACROBID] allergy reaction Home Medications:: Home Medications Medication Instructions Recorded Confirmed Type alprazolam 0.5 mg tablet 0.5 mg PO TID PRN #90 tab 08/06/21 09/12/21 Rx hydrocodone 5 mg-acetaminophen 325 1 tab PO TID #90 tab 08/06/21 09/12/21 Rx mg tablet levothyroxine 50 mcg tablet 50 mcg PO DAILY #90 tab 08/06/21 09/12/21 Rx meclizine 25 mg tablet 25 mg PO TID PRN #30 tab 08/06/21 09/12/21 Rx Albuterol Sulfate [Albuterol 2.5 mg INHALATION BID 09/12/21 09/12/21 History 0.083% 2.5mg/3mL neb] Albuterol Sulfate [Albuterol See Rx Instructions .ROUTE .COMPLEX 09/12/21 09/12/21 History Sulfate Hfa] Aspirin [Low Dose Aspirin EC] 81 mg PO DAILY 09/12/21 09/12/21 History Budesonide/Formoterol Fumarate See Rx Instructions .ROUTE .COMPLEX 09/12/21 09/12/21 History [Budesonide-Formoterol 160-4.5] Cariprazine HCl [Vraylar] 1.5 mg PO DAILY 09/12/21 09/12/21 History Cholecalciferol (Vitamin D3) 25 mcg PO DAILY 09/12/21 09/12/21 History [Vitamin D3 1,000 Unit Cap] Ergocalciferol (Vitamin D2) 1,250 mcg PO WEEKLY 09/12/21 09/12/21 History [Drisdol] Escitalopram Oxalate See Rx Instructions .ROUTE .COMPLEX 09/12/21 09/12/21 History Gabapentin 800 mg PO TID 09/12/21 09/12/21 History Omeprazole See Rx Instructions .ROUTE .COMPLEX 09/12/21 09/12/21 History Oxybutynin Chloride 5 mg PO DAILY 09/12/21 09/12/21 History Quetiapine Fumarate See Rx Instructions .ROUTE .COMPLEX 09/12/21 09/12/21 History Rosuvastatin Calcium See Rx Instructions .ROUTE .COMPLEX 09/12/21 09/12/21 History Tiotropium Cucumber [Spiriva 2 inh INHALATION DAILY 09/12/21 09/12/21 History Respimat] Height: 1.7 m Weight: 87.498 kg Laboratory Results:: Laboratory Results - last 24 hr 09/12/21 18:28: WBC 19.0 H, RBC 5.56 H, Hgb 16.5 H, Hct 50.7 H, MCV 91.2, MCH 29.7, MCHC 32.5, RDW 14.3, Plt Count 409, MPV 7.9, Neut % (Auto) 73.3, Lymph % (Auto) 19.6, [place] % (Auto) 5.7, Eos % (Auto) 0.9, Baso % (Auto) 0.6, Neut # (Auto) 13.9 H, Lymph # (Auto) 3.7, [place] # (Auto) 1.1 H, Eos # (Auto) 0.2, Baso # (Auto) 0.1, Total Counted 100, Neutrophils % (Manual) 69, Lymphocytes % (Manual) 22, Monocytes % (Manual) 9, Platelet Estimate Normal, RBC Morphology Not Reportable 09/12/21 18:28: Sodium 143, Potassium 3.7, Chloride 102, Carbon Dioxide 32 H, Anion Gap 12.7, BUN 9, Creatinine 0.60, Estimated Creat Clear 74, Estimated GFR 99, Est GFR ( Amer) 119, Glucose 111 H, Calcium 9.7, Total Bilirubin 0.4, AST 22, ALT 13, Alkaline Phosphatase 112, Total Protein 7.7, Albumin 4.5, Globulin 3.2, Albumin/Globulin Ratio 1.4, Amylase 57 09/12/21 18:28: Troponin I < 0.01, Lipase 40 09/12/21 18:51: Urine Color Yellow, Urine Appearance Cloudy, Urine pH 6.0, Ur Specific [place] 1.020, Urine Protein Negative, Urine Glucose (UA) Negative, Urine Ketones Negative, Urine Blood 3+, Urine Nitrate Negative, Urine Bilirubin 1+ A, Urine Urobilinogen 0.2, Ur Leukocyte Esterase Trace, Urine RBC 3-5, Urine WBC 10-20, Ur Squamous Epith Cells None, Urine Bacteria 4+ 09/12/21 19:00: SARS-CoV-2 (PCR) Not detected, Influenza A Untype (PCR) Not detected, Influenza Type B (PCR) Not detected 09/12/21 19:00: Lactate 0.8 09/13/21 05:55: WBC 16.9 H, RBC 4.55, Hgb 13.8 D, Hct 41.7, MCV 91.8, MCH 30.3, MCHC 33.0, RDW 14.3, Plt Count 306 D, MPV 7.7, Neut % (Auto) 75.3, Lymph % (Auto) 16.2, [place] % (Auto) 7.0, Eos % (Auto) 1.0, Baso % (Auto) 0.5, Neut # (Auto) 12.7 H, Lymph # (Auto) 2.7, [place] # (Auto) 1.2 H, Eos # (Auto) 0.2, Baso # (Auto) 0.1, Total Counted 100, Neutrophils % (Manual) 80 H, Lymphocytes % (Manual) 14, Monocytes % (Manual) 5, Eosinophils % (Manual) 1, Pl
--- NOTE | 2021-09-13 08:47 | HMH.PHAVTE ---
[facility] Pharmacy VTE Monitoring - Patient Demographics Admission date: 09/13/21 Report Date: 09/13/21 Time: 08:47 Allergies/Adverse Reactions: Patient Allergies metronidazole Allergy (Unknown, Verified 08/06/21 13:52) I-HIVES nitrofurantoin [From MACROBID] Allergy (Unknown, Verified 08/06/21 13:52) Unknown allergy reaction Height: 1.7 m Weight: 87.498 kg Patient Problems: Current Active Problems Pneumonia (Acute) UTI (urinary tract infection) (Acute) Abdominal pain (Acute) - VTE Risk Labs: VTE Related Lab Results Hgb 13.8 g/dL (12.2-16.2) D 09/13/21 05:55 Hct 41.7 % (37.0-47.0) 09/13/21 05:55 Plt Count 306 K/mm3 (142-424) D 09/13/21 05:55 BUN 9 mg/dl (7-17) 09/12/21 18:28 Creatinine 0.60 mg/dl (0.52-1.04) 09/12/21 18:28 Estimated Creat Clear 74 mL/min (50-200) 09/12/21 18:28 Was VTE Risk Assessment Performed: Yes VTE Score: 7 VTE Risk Level: Moderate Risk Clinical Trial Participant: No - Prophylaxis VTE Prophylaxis Ordered?: Yes Types of VTE Prophylaxis: TEDS Knee High
--- NOTE | 2021-09-13 09:18 | HMH.HP ---
*Admission Date: 09/13/21 *Chief complaint: Abd pain *History of present illness: 70-year-old female patient presented to the [facility] emergency department via EMS for reports of bilateral lower abdominal pain, lower back pain, dysuria, urinary urgency/frequency, nonproductive cough, and headache for 4 days. She reports she has not felt well for 4 days and has had low-grade fevers around 99 degrees. She denies nausea/vomiting/diarrhea or chills/body aches. She reports she never leaves the house and has no known exposure to Covid and has not received the Covid vaccine. She does report testing positive for Covid a year or so ago and states but I did not have it, unable to clarify statement The emergency department white blood cell count was 19 0 BMP was nonactionable Urine was 4+ bacteria and trace leukocytes She did receive ceftriaxone and azithromycin IV in the emergency department 09/12/21 CXR: FINDINGS: Lungs: Subtle interstitial haziness could reflect interstitial pneumonia. Granulomatous change. No consolidation. Pleural spaces: Unremarkable. No pleural effusion. No pneumothorax. Heart/Mediastinum: Unremarkable. No cardiomegaly. Bones/joints: Unremarkable. IMPRESSION: Subtle interstitial haziness could reflect interstitial pneumonia. Electronically signed by Oliver Traylor MD 09/12/21 Abd/PelvisCT: FINDINGS: Liver: Normal. No mass. Gallbladder and bile ducts: Large gallstone. Pancreas: Normal. No ductal dilation. Spleen: Normal. No splenomegaly. Adrenal glands: Normal. No mass. Kidneys and ureters: Normal. No hydronephrosis. Stomach and bowel: Constipation. No colitis. No small bowel obstruction. Appendix: No evidence of appendicitis. Intraperitoneal space: Unremarkable. No free air. No significant fluid collection. Vasculature: Unremarkable. No abdominal aortic aneurysm. Lymph nodes: Unremarkable. No enlarged lymph nodes. Urinary bladder: Emphysematous cystitis with gas in the wall of the urinary bladder. There is gas that is also localized extraluminal to the bladder. Reproductive: Hysterectomy. Bones/joints: Unremarkable. No acute fracture. Soft tissues: Unremarkable. IMPRESSION: Findings concerning for severe emphysematous cystitis with perforation. Addendum Dictated By: Oliver Traylor MD 70-year-old female patient sitting up in bed resting quietly she reports she is feeling better today with less abdominal pain and less lower back pain. [facility] History I have reviewed the patient's past medical history: Yes Medical History: Reports:: Anxiety, Asthma, Chronic Obstructive Pulmonary Disease (COPD), Coronary Artery Disease, Hyperlipidemia, Hypertension, Migraine Denies:: Cancer, Diabetes Mellitus Type 1, Diabetes Mellitus Type 2, Internal Pacemaker, MRSA *Have you ever received a pneumonia vaccine?: No *Have you received a flu vaccine this season?: No Other Medical History: Reports: Arthritis, Cataracts, Hoarseness, Hormone Therapy, Hypothyroidism, Sinus Problems, Thyroid Disease Laterality Cases: Left: Lumpectomy Other Surgeries: Yes: Cancer Surgery, Colonoscopy, Hysterectomy-Total. No: Pacemaker Amputation: No Fractures: Yes (foot) - *Social History Last grade of school completed: 7th or 8th Smoking Status: Current every day smoker Tobacco Type: cigarettes # Packs/Day (cigarettes): 1 Alcohol Intake: never Alcohol Intake Frequency:: 3 or more drinks per day Substance Use Type: denies use *Occupational Status:: retired Housing: house Household Members: children *Travel in the last 8 weeks: None - Psychiatric History Pschychiatric History:: Reports:: Anxiety Family Hx:: Asthma, Cancer, Diabetes, Hyperlipidemia, Hypertension, Stroke Review of Systems - Review of Systems Review of systems:: pertinent systems reviewed and negative unless documented below - Constitutional Reports body ache(s), Reports chills, Reports fatigue, Reports f
--- NOTE | 2021-09-13 11:25 | HMH.CONS ---
*Admission Date: 09/13/21 [facility] History Medical History: Reports:: Anxiety, Asthma, Chronic Obstructive Pulmonary Disease (COPD), Coronary Artery Disease, Hyperlipidemia, Hypertension, Migraine Denies:: Cancer, Diabetes Mellitus Type 1, Diabetes Mellitus Type 2, Internal Pacemaker, MRSA *Have you ever received a pneumonia vaccine?: No *Have you received a flu vaccine this season?: No Other Medical History: Reports: Arthritis, Cataracts, Hoarseness, Hormone Therapy, Hypothyroidism, Sinus Problems, Thyroid Disease Laterality Cases: Left: Lumpectomy Other Surgeries: Yes: Cancer Surgery, Colonoscopy, Hysterectomy-Total. No: Pacemaker Amputation: No Fractures: Yes (foot) - *Social History Last grade of school completed: 7th or 8th Smoking Status: Current every day smoker Tobacco Type: cigarettes # Packs/Day (cigarettes): 1 Alcohol Intake: never Alcohol Intake Frequency:: 3 or more drinks per day Substance Use Type: denies use *Occupational Status:: retired Housing: house Household Members: children *Travel in the last 8 weeks: None - Psychiatric History Pschychiatric History:: Reports:: Anxiety Family Hx:: Asthma, Cancer, Diabetes, Hyperlipidemia, Hypertension, Stroke Review of Systems - *Neurologic Reports headache(s) Meds Home Medications Medication Instructions Recorded Confirmed Type hydrocodone 5 mg-acetaminophen 325 1 tab PO TID #90 tab 08/06/21 09/12/21 Rx mg tablet levothyroxine 50 mcg tablet 50 mcg PO DAILY #90 tab 08/06/21 09/12/21 Rx Albuterol Sulfate [Albuterol 2 puffs IH Q4HP PRN 09/12/21 09/13/21 History Sulfate Hfa] Aspirin [Low Dose Aspirin EC] 81 mg PO DAILY 09/12/21 09/12/21 History Budesonide/Formoterol Fumarate 2 puffs IH BID 09/12/21 09/13/21 History [Budesonide-Formoterol 160-4.5] Cariprazine HCl [Vraylar] 1.5 mg PO DAILY 09/12/21 09/12/21 History Cholecalciferol (Vitamin D3) 25 mcg PO DAILY 09/12/21 09/12/21 History [Vitamin D3 1,000 Unit Cap] Ergocalciferol (Vitamin D2) 1,250 mcg PO WEEKLY 09/12/21 09/12/21 History [Drisdol] Escitalopram Oxalate 20 mg PO DAILY 09/12/21 09/13/21 History Gabapentin 800 mg PO TID 09/12/21 09/12/21 History Omeprazole 20 mg PO DAILY 09/12/21 09/13/21 History Oxybutynin Chloride 5 mg PO DAILY 09/12/21 09/12/21 History Quetiapine Fumarate 300 mg PO HS 09/12/21 09/13/21 History Rosuvastatin Calcium 10 mg PO HS 09/12/21 09/13/21 History Tiotropium [place] [Spiriva 2 inh INHALATION DAILY 09/12/21 09/12/21 History Respimat] ALPRAZolam [Xanax 0.5mg tab] 0.5 mg PO TIDP PRN 09/13/21 09/13/21 History Allergies Allergy/AdvReac Type Severity Reaction Status Date / Time metronidazole Allergy Unknown I-HIVES Verified 08/06/21 13:52 nitrofurantoin Allergy Unknown Unknown Verified 08/06/21 13:52 [From MACROBID] allergy reaction Exam Vital signs and Labs for Last 24 Hours: Temp Pulse Resp BP Pulse Ox 98.7 F 92 H 19 167/83 H 96 09/13/21 08:00 09/13/21 08:00 09/13/21 08:00 09/13/21 08:00 09/13/21 08:00 Laboratory Results - last 24 hr 09/12/21 18:28: WBC 19.0 H, RBC 5.56 H, Hgb 16.5 H, Hct 50.7 H, MCV 91.2, MCH 29.7, MCHC 32.5, RDW 14.3, Plt Count 409, MPV 7.9, Neut % (Auto) 73.3, Lymph % (Auto) 19.6, [place] % (Auto) 5.7, Eos % (Auto) 0.9, Baso % (Auto) 0.6, Neut # (Auto) 13.9 H, Lymph # (Auto) 3.7, [place] # (Auto) 1.1 H, Eos # (Auto) 0.2, Baso # (Auto) 0.1, Total Counted 100, Neutrophils % (Manual) 69, Lymphocytes % (Manual) 22, Monocytes % (Manual) 9, Platelet Estimate Normal, RBC Morphology Not Reportable 09/12/21 18:28: Sodium 143, Potassium 3.7, Chloride 102, Carbon Dioxide 32 H, Anion Gap 12.7, BUN 9, Creatinine 0.60, Estimated Creat Clear 74, Estimated GFR 99, Est GFR ( Amer) 119, Glucose 111 H, Calcium 9.7, Total Bilirubin 0.4, AST 22, ALT 13, Alkaline Phosphatase 112, Total Protein 7.7, Albumin 4.5, Globulin 3.2, Albumin/Globulin Ratio 1.4, Amylase 57 09/12/21 18:28: Troponin I < 0.01, Lipase 40 09/12/21 18:51: Urine Color
--- NOTE | 2021-09-13 11:52 | HMH.PULMCON ---
*Admission Date: 09/13/21 *Reason for consult:: Acute on chronic hypoxic respiratory failure *History of present illness: Ms. Sommer is a 70-year-old female greater than [id number] smoking history current smoker carries a diagnosis COPD on triple inhaler therapy and pulmonary nodules presented to the hospital worsening respiratory distress along with abdominal pain and pulmonary was called for further management. [facility] History Medical History: Reports:: Anxiety, Asthma, Chronic Obstructive Pulmonary Disease (COPD), Coronary Artery Disease, Hyperlipidemia, Hypertension, Migraine Denies:: Cancer, Diabetes Mellitus Type 1, Diabetes Mellitus Type 2, Internal Pacemaker, MRSA *Have you ever received a pneumonia vaccine?: No *Have you received a flu vaccine this season?: No Other Medical History: Reports: Arthritis, Cataracts, Hoarseness, Hormone Therapy, Hypothyroidism, Sinus Problems, Thyroid Disease Laterality Cases: Left: Lumpectomy Other Surgeries: Yes: Cancer Surgery, Colonoscopy, Hysterectomy-Total. No: Pacemaker Amputation: No Fractures: Yes (foot) - *Social History Last grade of school completed: 7th or 8th Smoking Status: Current every day smoker Tobacco Type: cigarettes # Packs/Day (cigarettes): 1 Alcohol Intake: never Alcohol Intake Frequency:: 3 or more drinks per day Substance Use Type: denies use *Occupational Status:: retired Housing: house Household Members: children *Travel in the last 8 weeks: None - Psychiatric History Pschychiatric History:: Reports:: Anxiety Family Hx:: Asthma, Cancer, Diabetes, Hyperlipidemia, Hypertension, Stroke ROS - Cons Reports anorexia, Reports body ache(s), Denies chills - Eyes Denies discharge, Denies bulging eyes - ENT Denies bleeding gums - Card Reports shortness of breath, Reports shortness of breath with activity - Resp Respiratory: Reports chest congestion, Reports cough, Reports dyspnea on exertion, Denies excessive phlegm production - GI Gastrointestingal: Reports: abdominal pain - [place] Musculoskeletal: Reports joint pain - Psych Denies lack of enjoyment, Denies thoughts of hurting/killing others Meds Home Medications Medication Instructions Recorded Confirmed Type hydrocodone 5 mg-acetaminophen 325 1 tab PO TID #90 tab 08/06/21 09/12/21 Rx mg tablet levothyroxine 50 mcg tablet 50 mcg PO DAILY #90 tab 08/06/21 09/12/21 Rx Albuterol Sulfate [Albuterol 2 puffs IH Q4HP PRN 09/12/21 09/13/21 History Sulfate Hfa] Aspirin [Low Dose Aspirin EC] 81 mg PO DAILY 09/12/21 09/12/21 History Budesonide/Formoterol Fumarate 2 puffs IH BID 09/12/21 09/13/21 History [Budesonide-Formoterol 160-4.5] Cariprazine HCl [Vraylar] 1.5 mg PO DAILY 09/12/21 09/12/21 History Cholecalciferol (Vitamin D3) 25 mcg PO DAILY 09/12/21 09/12/21 History [Vitamin D3 1,000 Unit Cap] Ergocalciferol (Vitamin D2) 1,250 mcg PO WEEKLY 09/12/21 09/12/21 History [Drisdol] Escitalopram Oxalate 20 mg PO DAILY 09/12/21 09/13/21 History Gabapentin 800 mg PO TID 09/12/21 09/12/21 History Omeprazole 20 mg PO DAILY 09/12/21 09/13/21 History Oxybutynin Chloride 5 mg PO DAILY 09/12/21 09/12/21 History Quetiapine Fumarate 300 mg PO HS 09/12/21 09/13/21 History Rosuvastatin Calcium 10 mg PO HS 09/12/21 09/13/21 History Tiotropium [place] [Spiriva 2 inh INHALATION DAILY 09/12/21 09/12/21 History Respimat] ALPRAZolam [Xanax 0.5mg tab] 0.5 mg PO TIDP PRN 09/13/21 09/13/21 History Allergies Allergy/AdvReac Type Severity Reaction Status Date / Time metronidazole Allergy Unknown I-HIVES Verified 08/06/21 13:52 nitrofurantoin Allergy Unknown Unknown Verified 08/06/21 13:52 [From MACROBID] allergy reaction Exam - Constitutional Constitutional:: Present: no acute distress, comfortable - HENMT Exam HENIL: Present: normocephalic, atraumatic - Eye Exam Eyes:: Present: normal appearance both eyes and related structures - Neck Exam Neck:: Present: normal visual inspect
--- NOTE | 2021-09-13 11:54 | HMH.CONS ---
*Admission Date: 09/13/21 *Reason for consult:: Emphysematous cystitis *History of present illness: Patient is a 70-year-old white female with 4-day history of lower abdominal pain, lower back pain, dysuria, cough and headache. She has had some associated nausea and low-grade fevers around 99 degrees. She has some chronic breathing problems. Chest x-ray shows interstitial findings suspicious for pneumonia. Her white count on admission was 19 thousand. It has improved to 16.9 today. Her urinalysis showed 4+ bacteria and 3+ blood. The urine culture is pending. Her electrolytes and liver functions and creatinine enzymes are normal. A CT scan showed significant gas in the bladder and. There is also a significant amount of gas in her colon. There is no evidence of stones. The CT reports some gas that is also extraluminal to the bladder. Patient denies any pneumaturia. She denies a history of colon surgery. She does have a history of a hysterectomy and bladder sling years ago. Her CT scan from April was reviewed and there was no evidence of any gas in her colon or bladder at that time. [facility] History Medical History: Reports:: Anxiety, Asthma, Chronic Obstructive Pulmonary Disease (COPD), Coronary Artery Disease, Hyperlipidemia, Hypertension, Migraine Denies:: Cancer, Diabetes Mellitus Type 1, Diabetes Mellitus Type 2, Internal Pacemaker, MRSA *Have you ever received a pneumonia vaccine?: No *Have you received a flu vaccine this season?: No Other Medical History: Reports: Arthritis, Cataracts, Hoarseness, Hormone Therapy, Hypothyroidism, Sinus Problems, Thyroid Disease Laterality Cases: Left: Lumpectomy Other Surgeries: Yes: Cancer Surgery, Colonoscopy, Hysterectomy-Total. No: Pacemaker Amputation: No Fractures: Yes (foot) - *Social History Last grade of school completed: 7th or 8th Smoking Status: Current every day smoker Tobacco Type: cigarettes # Packs/Day (cigarettes): 1 Alcohol Intake: never Alcohol Intake Frequency:: 3 or more drinks per day Substance Use Type: denies use *Occupational Status:: retired Housing: house Household Members: children *Travel in the last 8 weeks: None - Psychiatric History Pschychiatric History:: Reports:: Anxiety Family Hx:: Asthma, Cancer, Diabetes, Hyperlipidemia, Hypertension, Stroke Review of Systems - Review of Systems Review of systems:: pertinent systems reviewed and negative unless documented below - *Neurologic Reports headache(s) Meds Home Medications Medication Instructions Recorded Confirmed Type hydrocodone 5 mg-acetaminophen 325 1 tab PO TID #90 tab 08/06/21 09/12/21 Rx mg tablet levothyroxine 50 mcg tablet 50 mcg PO DAILY #90 tab 08/06/21 09/12/21 Rx Albuterol Sulfate [Albuterol 2 puffs IH Q4HP PRN 09/12/21 09/13/21 History Sulfate Hfa] Aspirin [Low Dose Aspirin EC] 81 mg PO DAILY 09/12/21 09/12/21 History Budesonide/Formoterol Fumarate 2 puffs IH BID 09/12/21 09/13/21 History [Budesonide-Formoterol 160-4.5] Cariprazine HCl [Vraylar] 1.5 mg PO DAILY 09/12/21 09/12/21 History Cholecalciferol (Vitamin D3) 25 mcg PO DAILY 09/12/21 09/12/21 History [Vitamin D3 1,000 Unit Cap] Ergocalciferol (Vitamin D2) 1,250 mcg PO WEEKLY 09/12/21 09/12/21 History [Drisdol] Escitalopram Oxalate 20 mg PO DAILY 09/12/21 09/13/21 History Gabapentin 800 mg PO TID 09/12/21 09/12/21 History Omeprazole 20 mg PO DAILY 09/12/21 09/13/21 History Oxybutynin Chloride 5 mg PO DAILY 09/12/21 09/12/21 History Quetiapine Fumarate 300 mg PO HS 09/12/21 09/13/21 History Rosuvastatin Calcium 10 mg PO HS 09/12/21 09/13/21 History Tiotropium [place] [Spiriva 2 inh INHALATION DAILY 09/12/21 09/12/21 History Respimat] ALPRAZolam [Xanax 0.5mg tab] 0.5 mg PO TIDP PRN 09/13/21 09/13/21 History Allergies Allergy/AdvReac Type Severity Reaction Status Date / Time metronidazole Allergy Unknown I-HIVES Verified 08/06/21 13:52 nitrofurantoin Allergy Unknown Unknown Verified 08/06/21 13:52 [F
--- NOTE | 2021-09-13 14:12 | HMH.GSCON ---
*Admission Date: 09/13/21 *Reason for consult:: Abdominal pain with concerns for viscus perforation *History of present illness: This is a 70-year-old female seen in consultation from Dr. Perez for evaluation regarding abdominal pain and possible viscus perforation. Please see HPI forwarded from Dr. Perez's evaluation below. Forwarded from urology consultation: Patient is a 70-year-old white female with 4-day history of lower abdominal pain, lower back pain, dysuria, cough and headache. She has had some associated nausea and low-grade fevers around 99 degrees. She has some chronic breathing problems. Chest x-ray shows interstitial findings suspicious for pneumonia. Her white count on admission was 19 thousand. It has improved to 16.9 today. Her urinalysis showed 4+ bacteria and 3+ blood. The urine culture is pending. Her electrolytes and liver functions and creatinine enzymes are normal. A CT scan showed significant gas in the bladder and. There is also a significant amount of gas in her colon. There is no evidence of stones. The CT reports some gas that is also extraluminal to the bladder. Patient denies any pneumaturia. She denies a history of colon surgery. She does have a history of a hysterectomy and bladder sling years ago. Her CT scan from April was reviewed and there was no evidence of any gas in her colon or bladder at that time. Review of Systems - *Neurologic Reports headache(s) [facility] History Medical History: Reports:: Anxiety, Asthma, Chronic Obstructive Pulmonary Disease (COPD), Coronary Artery Disease, Hyperlipidemia, Hypertension, Migraine Denies:: Cancer, Diabetes Mellitus Type 1, Diabetes Mellitus Type 2, Internal Pacemaker, MRSA *Have you ever received a pneumonia vaccine?: No *Have you received a flu vaccine this season?: No Other Medical History: Reports: Arthritis, Cataracts, Hoarseness, Hormone Therapy, Hypothyroidism, Sinus Problems, Thyroid Disease Laterality Cases: Left: Lumpectomy Other Surgeries: Yes: Cancer Surgery, Colonoscopy, Hysterectomy-Total. No: Pacemaker Amputation: No Fractures: Yes (foot) - *Social History Last grade of school completed: 7th or 8th Smoking Status: Current every day smoker Tobacco Type: cigarettes # Packs/Day (cigarettes): 1 Alcohol Intake: never Alcohol Intake Frequency:: 3 or more drinks per day Substance Use Type: denies use *Occupational Status:: retired Housing: house Household Members: children *Travel in the last 8 weeks: None - Psychiatric History Pschychiatric History:: Reports:: Anxiety Family Hx:: Asthma, Cancer, Diabetes, Hyperlipidemia, Hypertension, Stroke Meds Home Medications Medication Instructions Recorded Confirmed Type hydrocodone 5 mg-acetaminophen 325 1 tab PO TID #90 tab 08/06/21 09/12/21 Rx mg tablet levothyroxine 50 mcg tablet 50 mcg PO DAILY #90 tab 08/06/21 09/12/21 Rx Albuterol Sulfate [Albuterol 2 puffs IH Q4HP PRN 09/12/21 09/13/21 History Sulfate Hfa] Aspirin [Low Dose Aspirin EC] 81 mg PO DAILY 09/12/21 09/12/21 History Budesonide/Formoterol Fumarate 2 puffs IH BID 09/12/21 09/13/21 History [Budesonide-Formoterol 160-4.5] Cariprazine HCl [Vraylar] 1.5 mg PO DAILY 09/12/21 09/12/21 History Cholecalciferol (Vitamin D3) 25 mcg PO DAILY 09/12/21 09/12/21 History [Vitamin D3 1,000 Unit Cap] Ergocalciferol (Vitamin D2) 1,250 mcg PO WEEKLY 09/12/21 09/12/21 History [Drisdol] Escitalopram Oxalate 20 mg PO DAILY 09/12/21 09/13/21 History Gabapentin 800 mg PO TID 09/12/21 09/12/21 History Omeprazole 20 mg PO DAILY 09/12/21 09/13/21 History Oxybutynin Chloride 5 mg PO DAILY 09/12/21 09/12/21 History Quetiapine Fumarate 300 mg PO HS 09/12/21 09/13/21 History Rosuvastatin Calcium 10 mg PO HS 09/12/21 09/13/21 History Tiotropium [place] [Spiriva 2 inh INHALATION DAILY 09/12/21 09/12/21 History Respimat] ALPRAZolam [Xanax 0.5mg tab] 0.5 mg PO TIDP PRN 09/13/21 09/13/21 History Allergies Allergy/AdvReac Type Se
[2021-09-13 16:19] LABS: Microscopic,Cath URINE MICROSCOPIC (MICROSCOPIC)
[2021-09-13 16:59] LABS: Appearance,Urine/Cath CLOUDY (Clear); Bilirubin,Cath Negative (Negative); Blood, Urine/Cath 3+ (Negative); Color,Urine/Cath DK YELLOW (Yellow); Glucose,Urine/Cath (UA) Negative (Negative); Ketones,Urine/Cath TRACE (Negative); Leukocyte Esterase,Cath Negative (Negative); Nitrate,Cath POSITIVE (Negative); Protein,Urine/Cath Negative (Negative); Specific Gravity, Urine/Cath >= 1.030 (1.005-1.030)
[2021-09-13 17:21] LABS: Bacteria,Urine/Cath 4+ /lpf; RBC,Urine/Cath 20-50 # /hpf (0-3)
--- NOTE | 2021-09-13 18:03 | PC.NURSE ---
Pt alert and oriented x 4. NAD. Remains on 2 L NC at this time. C/o of abd pain after eating and is running a low grade temp of 99.5. Called and spoke with Dr. Ramirez and received a x 1 dose of 650 mg po tylenol. Also, pt was made NPO again at this time. Dr. Ramirez also aware of pt's dysphasia. Mx continues. Pt sitting up in bed watching tv currently. Cason was inserted per Dr. Perez this shift.
[2021-09-14] VITALS (10 sets, daily range): BP systolic 95–138; BP diastolic 47–68; PULSE 66–101; RESP 16–24; TEMP 36.6–37.1; O2SAT 89–95; BMI 30.2
--- NOTE | 2021-09-14 06:00 | XR_ITS ---
PROCEDURE: XR CHEST PORTABLE CLINICAL HISTORY: PNA COMPARISON: CR CXR2V XR chest 2V from 11/18/2017 CR XR CHEST PORTABLE from 08/18/[address] CHEST WO CON from 11/02/[address] LUNG SCREENING from 06/22/[address] ABDOMEN PELVIS W CON from 09/12/2021 CR XR CHEST PORTABLE from 09/12/2021 FINDINGS: The cardiomediastinal silhouette and pulmonary vascularity are within normal limits. There is increased density in the left CP angle which may be due to an area of atelectasis or infiltrate. And irregular nodular opacity is present in the right upper lobe at 17 by 11 mm. No acute bony abnormalities. IMPRESSION: Patchy density left CP angle which could be due to small area of atelectasis or infiltrate or even small effusion. Suspicious right upper lobe nodule. Dictated by: Jose Champion MD 09/14/2021 08:04 Jose Champion MD in [place] 09/14/2021 08:04
--- NOTE | 2021-09-14 06:43 | P.PN_ITS ---
Subjective Patient reports: no new complaints Progress Note: A&P (1) Cough Status: Acute (2) Tobacco abuse Status: Chronic (3) COPD (chronic obstructive pulmonary disease) Status: Chronic (4) Generalized anxiety disorder Status: Chronic (5) Pneumonia Status: Acute (6) UTI (urinary tract infection) Status: Acute (7) Abdominal pain Status: Acute (8) Emphysematous cystitis Status: Acute Assessment and plan: No definitive evidence per CT scan of colovesical fistula or other colonic involvement. Continue management as per primary care provider/urology Will continue to follow during hospitalization (9) Obesity (BMI 30-39.9) Status: Acute Exam Vital signs and Labs for Last 24 Hours: Temp Pulse Resp BP Pulse Ox 98 F 72 17 98/53 L 92 L 09/14/21 04:00 09/14/21 06:26 09/14/21 04:00 09/14/21 04:00 09/14/21 06:26 Laboratory Results - last 24 hr 09/13/21 05:55: WBC 16.9 H, RBC 4.55, Hgb 13.8 D, Hct 41.7, MCV 91.8, MCH 30.3, MCHC 33.0, RDW 14.3, Plt Count 306 D, MPV 7.7, Neut % (Auto) 75.3, Lymph % (Auto) 16.2, [place] % (Auto) 7.0, Eos % (Auto) 1.0, Baso % (Auto) 0.5, Neut # (Auto) 12.7 H, Lymph # (Auto) 2.7, [place] # (Auto) 1.2 H, Eos # (Auto) 0.2, Baso # (Auto) 0.1, Total Counted 100, Neutrophils % (Manual) 80 H, Lymphocytes % (Manual) 14, Monocytes % (Manual) 5, Eosinophils % (Manual) 1, Platelet Estimate Normal, Hypochromasia 1+, Anisocytosis 1+, Macrocytosis 1+ 09/13/21 10:30: Urine Color Dk yellow, Urine Appearance Cloudy, Urine pH 6.0, Ur Specific [place] >= 1.030, Urine Protein Negative, Urine Glucose (UA) Negative, Urine Ketones Trace, Urine Blood 3+, Urine Nitrate Positive, Urine Bilirubin Negative, Urine Urobilinogen 1.0, Ur Leukocyte Esterase Negative, Urine RBC 20- 50, Urine WBC 10-20 A, Ur Squamous Epith Cells 3-5, Urine Bacteria 4+ A I & O for Last 24 hours: Intake & Output 09/11/21 09/12/21 09/13/21 09/14/21 11:59 11:59 11:59 11:59 Output Total 400 / 400 Balance -400 / -400 Weight 192 lb 14.4 oz 192 lb 10.944 oz Microbiology Reports for the Last 24 Hours: Microbiology 09/13/21 12:30 Sputum - Expectorated Sputum Gram Stain - Final 09/12/21 18:51 Urine,Catheterized Urine Culture - Preliminary NO GROWTH AFTER 24 HOURS - Constitutional no acute distress - *Routine Respiratory Exam Absent: respiratory distress - *Routine Cardiovascular Exam Absent: tachycardia
[2021-09-14 07:04] LABS: Basophils # 0.1 K/mm3 (0-0.2); Basophils % 0.5 % (0.1-2.0); Eosinophils # 0.2 K/mm3 (0.0-0.4); Eosinophils % 1.9 % (0.1-12.0); Hematocrit 40.9 % (37.0-47.0); Hemoglobin 12.7 g/dL (12.2-16.2); Lymphocytes % 24.4 % (10-50); Mean Corpuscular HGB Conc 31.1 g/dL (31.8-35.4); Mean Corpuscular Hemoglobin 28.5 pg (27.0-31.2); Mean Corpuscular Volume 91.7 fl (81-99); Monocytes # 0.8 K/mm3 (0.1-1.0); Monocytes % 6.4 % (1.7-9.3); Neutrophils # 8.1 K/mm3 (1.8-7.8); Neutrophils % 66.7 % (37.0-80.0); Platelet Count 331 K/mm3 (142-424); Red Blood Count 4.47 M/mm3 (4.20-5.40); Red Cell Distribution Width 14.6 % (11.5-17.5); White Blood Count 12.1 K/mm3 (4.8-10.8)
[2021-09-14 07:15] LABS: Anion Gap 5.9 mEq/L (5-15); Blood Urea Nitrogen 8 mg/dl (7-17); Calcium 8.4 mg/dl (8.4-10.2); Carbon Dioxide 35 mmol/L (22.0-30.0); Chloride 104 mmol/L (98-107); Creatinine Clearance Estimated 71 mL/min (50-200); Estimated Glomerular Filt Rate 157 ml/min (>60); GFR (African American) 190 ML/MIN (>60); Glucose 80 mg/dl (74-100); Sodium 142 mmol/L (136-145)
[2021-09-14 07:19] LABS: Potassium 2.9 mmoL/L (3.5-5.1)
--- NOTE | 2021-09-14 09:23 | CT_ITS ---
PROCEDURE: CT ABDOMEN PELVIS W CON CLINICAL INDICATION: poss colovesical fistula COMPARISON: CT CT ABDOMEN PELVIS W CON from 09/12/2021 TECHNIQUE: IV Contrast: 75ML Isovue 370 Oral Contrast None Axial images obtained with sagittal and coronal reformats. All CT scans at the facility use one or more dose reduction, viz: automated exposure control, ma/kV adjustment per patient size (including targeted exams where dose is matched to indication, i.e. head), or iterative reconstruction technique. FINDINGS: CT cystogram was performed. Images are obtained of the abdomen and pelvis without and with contrast instilled into the urinary bladder and with postvoid imaging. Images performed without bladder contrast shows a Cason catheter in place. There is a small amount of residual air within the urinary bladder wall which has improved since the previous exam. Air is also present outside of the bladder wall along the anterior inferior aspect of the urinary bladder and along the posterior and right aspect of the urinary bladder. 300 mL water-soluble contrast was instilled into the urinary bladder via the Cason catheter. There is no evidence of contrast extravasation. Postvoid exams are also obtained showing no evidence of contrast extravasation or significant residual. The bladder mucosa has a somewhat nodular/irregular appearance with some small diverticula extending into the urinary bladder wall but not through the bladder wall. Other findings: Left basilar atelectasis. Cholelithiasis. Moderate amount of retained colonic feces. There is some mild haziness of the pericolic fat in the sigmoid colon region with colonic diverticulosis. Small amount fluid is present in the cul-de-sac and left pelvic region not significantly changed. IMPRESSION: 1. Emphysematous cystitis has shown improvement from 09/12/2021 2. There is a small amount extravesical air along the anterior inferior right posterior aspect of the urinary bladder which could be due to prior perforation or extension of the infection. No evidence of bladder rupture at this time. Urinary bladder mucosa has a somewhat irregular appearance with numerous tiny projections of contrast into the urinary bladder wall which could be due to small diverticula or bladder wall thickening/contraction. 3. There is some mild haziness of the pericolic fat in the sigmoid region but no convincing evidence of acute diverticulitis. There is colonic diverticulosis. Dictated by: Jose Champion MD 09/14/2021 14:25 Jose Champion MD in [facility] 09/14/2021 14:25
--- NOTE | 2021-09-14 09:25 | HMH.ACPN2 ---
Internal Medicine - PN: Subj *Date: 09/14/21 *Time: 08:00 Interval history: pt states she feels well Exam Vital signs and Labs for Last 24 Hours: Temp Pulse Resp BP Pulse Ox 98.4 F 74 16 102/47 L 92 L 09/14/21 07:47 09/14/21 07:47 09/14/21 07:47 09/14/21 07:47 09/14/21 07:47 Laboratory Results - last 24 hr 09/12/21 18:51: Urine Color Yellow, Urine Appearance Cloudy, Urine pH 6.0, Ur Specific [place] 1.020, Urine Protein Negative, Urine Glucose (UA) Negative, Urine Ketones Negative, Urine Blood 3+, Urine Nitrate Negative, Urine Bilirubin 1+ A, Urine Urobilinogen 0.2, Ur Leukocyte Esterase Trace, Urine RBC 3-5, Urine WBC 10-20, Ur Squamous Epith Cells None, Urine Bacteria 4+ 09/13/21 10:30: Urine Color Dk yellow, Urine Appearance Cloudy, Urine pH 6.0, Ur Specific [place] >= 1.030, Urine Protein Negative, Urine Glucose (UA) Negative, Urine Ketones Trace, Urine Blood 3+, Urine Nitrate Positive, Urine Bilirubin Negative, Urine Urobilinogen 1.0, Ur Leukocyte Esterase Negative, Urine RBC 20-50, Urine WBC 10-20 A, Ur Squamous Epith Cells 3-5, Urine Bacteria 4+ A 09/14/21 06:21: WBC 12.1 H D, RBC 4.47, Hgb 12.7, Hct 40.9, MCV 91.7, MCH 28.5, MCHC 31.1 L, RDW 14.6, Plt Count 331, MPV 9.0, Neut % (Auto) 66.7, Lymph % (Auto) 24.4, [place] % (Auto) 6.4, Eos % (Auto) 1.9, Baso % (Auto) 0.5, Neut # (Auto) 8.1 H, Lymph # (Auto) 3.0, [place] # (Auto) 0.8, Eos # (Auto) 0.2, Baso # (Auto) 0.1 09/14/21 06:21: Sodium 142, Potassium 2.9 L* D, Chloride 104, Carbon Dioxide 35 H, Anion Gap 5.9, BUN 8, Creatinine 0.40 L D, Estimated Creat Clear 71, Estimated GFR 157, Est GFR ( Amer) 190 D, Glucose 80, Calcium 8.4 I & O for Last 24 hours: Intake & Output 09/11/21 09/12/21 09/13/21 09/14/21 11:59 11:59 11:59 11:59 Intake Total 0 / 0 Output Total 400 / 400 Balance -400 / -400 Weight 192 lb 14.4 oz 192 lb 10.944 oz Microbiology Reports for the Last 24 Hours: Microbiology 09/12/21 18:51 Urine,Catheterized Urine Culture - Preliminary Gram Negative Rods 09/13/21 12:30 Sputum - Expectorated Sputum Gram Stain - Final - Constitutional no acute distress - *Routine HEENT Exam Head: Present: normocephalic Eye: Present: PERRL ENT: Present: mucous membranes moist - *Routine Neck Exam Present: supple. Absent: lymphadenopathy - *Routine Respiratory Exam Present: rhonchi - *Routine Cardiovascular Exam Present: RRR - *Routine Abdominal Exam Present: soft, normoactive bowel sounds. Absent: tenderness - *Routine Extremities Exam Absent: cyanosis, clubbing, edema - *Routine Skin Exam Present: warm. Absent: rash - *Routine Neurological Exam Present: alert, oriented X3 Assessment and Plan (1) Cough Status: Acute Category: Medical Code(s): R05 - Cough (2) Tobacco abuse Status: Chronic Category: Medical Code(s): Z72.0 - Tobacco use (3) COPD (chronic obstructive pulmonary disease) Status: Chronic Qualifiers: COPD type: unspecified COPD Qualified Code(s): J44.9 - Chronic obstructive pulmonary disease, unspecified Category: Medical Code(s): J44.9 - Chronic obstructive pulmonary disease, unspecified (4) Generalized anxiety disorder Status: Chronic Category: Medical Code(s): F41.1 - Generalized anxiety disorder (5) Pneumonia Status: Acute Qualifiers: Pneumonia type: due to unspecified organism Laterality: unspecified laterality Lung location: unspecified part of lung Qualified Code(s): J18.9 - Pneumonia, unspecified organism Category: Medical Code(s): J18.9 - Pneumonia, unspecified organism (6) UTI (urinary tract infection) Status: Acute Qualifiers: Urinary tract infection type: site unspecified Hematuria presence: without hematuria Qualified Code(s): N39.0 - Urinary tract infection, site not specified Category: Medical Code(s): N39.0 - Urinary tract infection, site not specified (7) Abdomi
--- NOTE | 2021-09-14 09:46 | HMH.PULMPN ---
Internal Medicine - PN: Subj *Date: 09/14/21 *Time: 12:19 Interval history: No acute respiratory vents overnight. Patient denies any new respiratory complaints. Exam - Constitutional Constitutional:: Present: no acute distress, comfortable - HENMT Exam HENMT: Present: normocephalic, atraumatic - Eye Exam Eyes:: Present: normal appearance both eyes and related structures - Neck Exam Neck:: Present: normal visual inspection - Respiratory Exam Respiratory:: Present: able to speak in complete sentences, no respiratory distress, wheezing - Cardiovascular Exam Cardiac:: Present: S1, S2 - GI Exam GI:: Present: soft Comments: Mid Lower quadrant pain and guarding - Skin Exam Skin: Present: warm - Neurological Exam Neurological: Present: alert, awake, normal cognition - Extremities Exam Extremities: Present: no cyanosis, no clubbing - Psychiatric Exam Psychiatric: Present: normal affect Assessment and Plan (1) Cough Status: Acute Category: Medical Code(s): R05 - Cough (2) Tobacco abuse Status: Chronic Category: Medical Code(s): Z72.0 - Tobacco use (3) COPD (chronic obstructive pulmonary disease) Status: Chronic Qualifiers: COPD type: unspecified COPD Qualified Code(s): J44.9 - Chronic obstructive pulmonary disease, unspecified Category: Medical Code(s): J44.9 - Chronic obstructive pulmonary disease, unspecified (4) Generalized anxiety disorder Status: Chronic Category: Medical Code(s): F41.1 - Generalized anxiety disorder (5) Pneumonia Status: Acute Qualifiers: Pneumonia type: due to unspecified organism Laterality: unspecified laterality Lung location: unspecified part of lung Qualified Code(s): J18.9 - Pneumonia, unspecified organism Category: Medical Code(s): J18.9 - Pneumonia, unspecified organism (6) UTI (urinary tract infection) Status: Acute Qualifiers: Urinary tract infection type: site unspecified Hematuria presence: without hematuria Qualified Code(s): N39.0 - Urinary tract infection, site not specified Category: Medical Code(s): N39.0 - Urinary tract infection, site not specified (7) Abdominal pain Status: Acute Qualifiers: Abdominal location: generalized Qualified Code(s): R10.84 - Generalized abdominal pain Category: Medical Code(s): R10.9 - Unspecified abdominal pain (8) Emphysematous cystitis Status: Acute Category: Medical Code(s): N30.80 - Other cystitis without hematuria (9) Obesity (BMI 30-39.9) Status: Acute Category: Medical Code(s): E66.9 - Obesity, unspecified - Assessment and plan all Dx Assessment and Plan for all problems:: #Acute on chronic hypoxic respiratory failure: #COPD exacerbation: # CAP 70-year-old female greater than [id number] smoking cancer diagnosis COPD presented to the hospital abdominal pain worsening respiratory distress. Patient admits worsening respiratory distress associated with cough and productive phlegm for the last week that has been progressively improving however patient is concerned that she might be having Covid and presented to the hospital. She was tested negative for COVID-19 pneumonia. Patient admission was initiated on 3 to 4 L oxygen therapy to maintain her O2 saturations at 88% and above. She currently uses 2 L oxygen therapy at night and 2 L during the daytime with exertion. She was also reported to have wheezing on admission. Today on examination patient does not appear to be in any respiratory suspect having her oxygen to room air with saturations maintained at 90% and above. Chest clear to auscultate. Evidence of leukocytosis noted. Chest x-ray showed mild interstitial haziness with no patchy airspace disease. Patient's lower lobes on her CT abdomen within normal limits. Urine culture gram-negative rods more than 10x5 CFU Interval update: Patient respiratory status relatively stable, stable respiratory revealed mild expirat
--- NOTE | 2021-09-14 13:06 | HMH.CONFU ---
Internal Medicine - PN: Subj *Date: 09/14/21 *Time: 13:06 Interval history: Patient denies new complaints. Afebrile. Urine color little dark. Urine culture growing greater than 100,000 gram-negative rods. ID and sensitivities pending. He is on broad-spectrum antibiotics. She is downstairs for a CT cystogram at this time. Exam Vital signs and Labs for Last 24 Hours: Temp Pulse Resp BP Pulse Ox 98.6 F 82 24 138/51 L 89 L 09/14/21 11:09 09/14/21 11:09 09/14/21 11:09 09/14/21 11:09 09/14/21 11:09 Laboratory Results - last 24 hr 09/12/21 18:51: Urine Color Yellow, Urine Appearance Cloudy, Urine pH 6.0, Ur Specific [place] 1.020, Urine Protein Negative, Urine Glucose (UA) Negative, Urine Ketones Negative, Urine Blood 3+, Urine Nitrate Negative, Urine Bilirubin 1+ A, Urine Urobilinogen 0.2, Ur Leukocyte Esterase Trace, Urine RBC 3-5, Urine WBC 10-20, Ur Squamous Epith Cells None, Urine Bacteria 4+ 09/13/21 10:30: Urine Color Dk yellow, Urine Appearance Cloudy, Urine pH 6.0, Ur Specific [place] >= 1.030, Urine Protein Negative, Urine Glucose (UA) Negative, Urine Ketones Trace, Urine Blood 3+, Urine Nitrate Positive, Urine Bilirubin Negative, Urine Urobilinogen 1.0, Ur Leukocyte Esterase Negative, Urine RBC 20-50, Urine WBC 10-20 A, Ur Squamous Epith Cells 3-5, Urine Bacteria 4+ A 09/14/21 06:21: WBC 12.1 H D, RBC 4.47, Hgb 12.7, Hct 40.9, MCV 91.7, MCH 28.5, MCHC 31.1 L, RDW 14.6, Plt Count 331, MPV 9.0, Neut % (Auto) 66.7, Lymph % (Auto) 24.4, [place] % (Auto) 6.4, Eos % (Auto) 1.9, Baso % (Auto) 0.5, Neut # (Auto) 8.1 H, Lymph # (Auto) 3.0, [place] # (Auto) 0.8, Eos # (Auto) 0.2, Baso # (Auto) 0.1 09/14/21 06:21: Sodium 142, Potassium 2.9 L* D, Chloride 104, Carbon Dioxide 35 H, Anion Gap 5.9, BUN 8, Creatinine 0.40 L D, Estimated Creat Clear 71, Estimated GFR 157, Est GFR ( Amer) 190 D, Glucose 80, Calcium 8.4 I & O for Last 24 hours: Intake & Output 09/11/21 09/12/21 09/13/21 09/14/21 23:59 23:59 23:59 23:59 Intake Total 0 / 0 Output Total 200 / 400 200 / 200 Balance -200 / -400 -200 / -200 Weight 86.863 kg 87.498 kg 87.4 kg Microbiology Reports for the Last 24 Hours: Microbiology 09/12/21 18:51 Urine,Catheterized Urine Culture - Preliminary Gram Negative Rods 09/13/21 12:30 Sputum - Expectorated Sputum Gram Stain - Final Assessment and Plan (1) Cough Status: Acute Category: Medical Code(s): R05 - Cough (2) Tobacco abuse Status: Chronic Category: Medical Code(s): Z72.0 - Tobacco use (3) COPD (chronic obstructive pulmonary disease) Status: Chronic Qualifiers: COPD type: unspecified COPD Qualified Code(s): J44.9 - Chronic obstructive pulmonary disease, unspecified Category: Medical Code(s): J44.9 - Chronic obstructive pulmonary disease, unspecified (4) Generalized anxiety disorder Status: Chronic Category: Medical Code(s): F41.1 - Generalized anxiety disorder (5) Pneumonia Status: Acute Qualifiers: Pneumonia type: due to unspecified organism Laterality: unspecified laterality Lung location: unspecified part of lung Qualified Code(s): J18.9 - Pneumonia, unspecified organism Category: Medical Code(s): J18.9 - Pneumonia, unspecified organism (6) UTI (urinary tract infection) Status: Acute Qualifiers: Urinary tract infection type: site unspecified Hematuria presence: without hematuria Qualified Code(s): N39.0 - Urinary tract infection, site not specified Category: Medical Code(s): N39.0 - Urinary tract infection, site not specified (7) Abdominal pain Status: Acute Qualifiers: Abdominal location: generalized Qualified Code(s): R10.84 - Generalized abdominal pain Category: Medical Code(s): R10.9 - Unspecified abdominal pain (8) Emphysematous cystitis Status: Acute Category: Medical Code(s): N30.80 - Other cystitis without hematuria Patient with emphys
--- NOTE | 2021-09-14 18:56 | PC.NURSE ---
LATE ENTRY. PT APPEARED TO GET CHOKED UP ON SUPPER. PT UNABLE TO TOLERATE SO TRAY WAS REMOVED. DR RAIN WAS CONTACTED REGARDING POSSIBLE ASPIRATION. ORDERS FOR NPO/BESIDE SWALLOW EVAL PER SPEECH AND LR @ 125 FOR MAINTENANCE.
[2021-09-14 21:03] LABS: Gentamicin,Trough < 0.6 ug/ml (0.0-2.0)
[2021-09-15] VITALS (10 sets, daily range): BP systolic 127–149; BP diastolic 55–80; PULSE 63–89; RESP 16–20; TEMP 36.4–37.1; O2SAT 88–98; BMI 30.2
[2021-09-15 01:12] LABS: Chloride 105 mmol/L (98-107); Potassium 3.7 mmoL/L (3.5-5.1); Sodium 142 mmol/L (136-145)
[2021-09-15 01:15] LABS: Anion Gap 8.7 mEq/L (5-15); Blood Urea Nitrogen 8 mg/dl (7-17); Calcium 8.4 mg/dl (8.4-10.2); Carbon Dioxide 32 mmol/L (22.0-30.0); Creatinine Clearance Estimated 71 mL/min (50-200); Estimated Glomerular Filt Rate 157 ml/min (>60); GFR (African American) 190 ML/MIN (>60)
[2021-09-15 01:25] LABS: Glucose 139 mg/dl (74-100)
[2021-09-15 01:36] LABS: Gentamicin,Peak 15.2 ug/ml (4.0-8.0)
--- NOTE | 2021-09-15 06:00 | XR_ITS ---
PROCEDURE INFORMATION: Exam: XR Chest Exam date and time: 09/15/2021 6:00 AM Age: 70 years old Clinical indication: Shortness of breath and other: UTI pneumonia; Additional info: Pna TECHNIQUE: Imaging protocol: XR of the chest. Views: 1 view. COMPARISON: CR XR CHEST PORTABLE 09/14/2021 7:23 AM FINDINGS: Lungs: Similar patchy left lower lobe airspace opacities. Pleural spaces: Similar small left pleural effusion. No pneumothorax. Heart/Mediastinum: Unremarkable. No cardiomegaly. Bones/joints: Unremarkable. IMPRESSION: Similar left lower lobe airspace opacities with small left pleural effusion.
[2021-09-15 07:15] LABS: Basophils # 0.1 K/mm3 (0-0.2); Basophils % 0.8 % (0.1-2.0); Eosinophils # 0.1 K/mm3 (0.0-0.4); Eosinophils % 0.5 % (0.1-12.0); Hemoglobin 12.6 g/dL (12.2-16.2); Lymphocytes # 1.6 K/mm3 (0.7-4.5); Lymphocytes % 17.3 % (10-50); Mean Corpuscular HGB Conc 31.5 g/dL (31.8-35.4); Mean Corpuscular Hemoglobin 28.7 pg (27.0-31.2); Mean Corpuscular Volume 91.3 fl (81-99); Mean Platelet Volume 8.3 fl (7.4-10.4); Monocytes # 0.6 K/mm3 (0.1-1.0); Neutrophils # 7.2 K/mm3 (1.8-7.8); Neutrophils % 75.4 % (37.0-80.0); Platelet Count 350 K/mm3 (142-424); Red Blood Count 4.39 M/mm3 (4.20-5.40); Red Cell Distribution Width 14.5 % (11.5-17.5); White Blood Count 9.5 K/mm3 (4.8-10.8)
--- NOTE | 2021-09-15 07:55 | HMH.ACPN2 ---
Internal Medicine - PN: Subj *Date: 09/15/21 *Time: 07:55 Interval history: pt with feeling better this am - on abx Exam Vital signs and Labs for Last 24 Hours: Temp Pulse Resp BP Pulse Ox 98.2 F 74 16 130/80 91 L 09/15/21 04:00 09/15/21 06:10 09/15/21 04:00 09/15/21 04:00 09/15/21 06:10 Laboratory Results - last 24 hr 09/14/21 20:36: Gentamicin Trough < 0.6 09/15/21 00:59: Gentamicin Peak 15.2 H* 09/15/21 00:59: Sodium 142, Potassium 3.7 D, Chloride 105, Carbon Dioxide 32 H, Anion Gap 8.7, BUN 8, Creatinine 0.40 L, Estimated Creat Clear 71, Estimated GFR 157, Est GFR ( Amer) 190, Glucose 139 H D, Calcium 8.4 09/15/21 06:50: WBC 9.5, RBC 4.39, Hgb 12.6, Hct 40.0, MCV 91.3, MCH 28.7, MCHC 31.5 L, RDW 14.5, Plt Count 350, MPV 8.3, Neut % (Auto) 75.4, Lymph % (Auto) 17.3, [place] % (Auto) 6.0, Eos % (Auto) 0.5, Baso % (Auto) 0.8, Neut # (Auto) 7.2, Lymph # (Auto) 1.6, [place] # (Auto) 0.6, Eos # (Auto) 0.1, Baso # (Auto) 0.1 I & O for Last 24 hours: Intake & Output 09/12/21 09/13/21 09/14/21 09/15/21 11:59 11:59 11:59 11:59 Intake Total 0 / 0 120 / 120 Output Total 400 / 400 910 / 910 Balance -400 / -400 -790 / -790 Weight 192 lb 14.4 oz 192 lb 10.944 oz 192 lb 9 oz Microbiology Reports for the Last 24 Hours: Microbiology 09/12/21 19:00 Blood Blood Culture - Preliminary NO GROWTH AFTER 48 HOURS 09/12/21 19:00 Blood Blood Culture - Preliminary NO GROWTH AFTER 48 HOURS 09/13/21 10:30 Urine,Catheterized Urine Culture - Preliminary NO GROWTH AFTER 24 HOURS 09/12/21 18:51 Urine,Catheterized Urine Culture - Preliminary Gram Negative Rods - Constitutional no acute distress, obese - *Routine HEENT Exam Head: Present: normocephalic Eye: Present: EOMI, PERRL ENT: Present: mucous membranes dry - *Routine Neck Exam Absent: JVD - *Routine Respiratory Exam Present: decreased breath sounds - *Routine Cardiovascular Exam Present: RRR, murmur, S4 - *Routine Abdominal Exam Present: soft - *Routine Extremities Exam Absent: calf tenderness - *Routine Skin Exam Present: intact - *Routine Neurological Exam Present: alert, CN II-XII intact. Absent: motor deficit - Routine Psychiatric Exam Present: normal affect Assessment and Plan (1) Cough Status: Acute Category: Medical Code(s): R05 - Cough (2) Tobacco abuse Status: Chronic Category: Medical Code(s): Z72.0 - Tobacco use (3) COPD (chronic obstructive pulmonary disease) Status: Chronic Qualifiers: COPD type: unspecified COPD Qualified Code(s): J44.9 - Chronic obstructive pulmonary disease, unspecified Category: Medical Code(s): J44.9 - Chronic obstructive pulmonary disease, unspecified (4) Generalized anxiety disorder Status: Chronic Category: Medical Code(s): F41.1 - Generalized anxiety disorder (5) Pneumonia Status: Acute Qualifiers: Pneumonia type: due to unspecified organism Laterality: unspecified laterality Lung location: unspecified part of lung Qualified Code(s): J18.9 - Pneumonia, unspecified organism Category: Medical Code(s): J18.9 - Pneumonia, unspecified organism (6) UTI (urinary tract infection) Status: Acute Qualifiers: Urinary tract infection type: site unspecified Hematuria presence: without hematuria Qualified Code(s): N39.0 - Urinary tract infection, site not specified Category: Medical Code(s): N39.0 - Urinary tract infection, site not specified (7) Abdominal pain Status: Acute Qualifiers: Abdominal location: generalized Qualified Code(s): R10.84 - Generalized abdominal pain Category: Medical Code(s): R10.9 - Unspecified abdominal pain (8) Emphysematous cystitis Status: Acute Category: Medical Code(s): N30.80 - Other cystitis without hematuria (9) Obesity (BMI 30-39
--- NOTE | 2021-09-15 10:32 | HMH.PHACONS ---
- Pharmacy Consult Date: 09/15/21 Time: 10:32 Referring provider: DR. HATHAWAY Reason for Consult:: GENTAMICIN PEAK AND TROUGH LEVELS Allergies and ADEs:: Allergies Allergy/AdvReac Type Severity Reaction Status Date / Time metronidazole Allergy Unknown I-HIVES Verified 08/06/21 13:52 nitrofurantoin Allergy Unknown Unknown Verified 08/06/21 13:52 [From MACROBID] allergy reaction Home Medications:: Home Medications Medication Instructions Recorded Confirmed Type hydrocodone 5 mg-acetaminophen 325 1 tab PO TID #90 tab 08/06/21 09/12/21 Rx mg tablet levothyroxine 50 mcg tablet 50 mcg PO DAILY #90 tab 08/06/21 09/12/21 Rx Albuterol Sulfate [Albuterol 2 puffs IH Q4HP PRN 09/12/21 09/13/21 History Sulfate Hfa] Aspirin [Low Dose Aspirin EC] 81 mg PO DAILY 09/12/21 09/12/21 History Budesonide/Formoterol Fumarate 2 puffs IH BID 09/12/21 09/13/21 History [Budesonide-Formoterol 160-4.5] Cariprazine HCl [Vraylar] 1.5 mg PO DAILY 09/12/21 09/12/21 History Cholecalciferol (Vitamin D3) 25 mcg PO DAILY 09/12/21 09/12/21 History [Vitamin D3 1,000 Unit Cap] Ergocalciferol (Vitamin D2) 1,250 mcg PO WEEKLY 09/12/21 09/12/21 History [Drisdol] Escitalopram Oxalate 20 mg PO DAILY 09/12/21 09/13/21 History Gabapentin 800 mg PO TID 09/12/21 09/12/21 History Omeprazole 20 mg PO DAILY 09/12/21 09/13/21 History Oxybutynin Chloride 5 mg PO DAILY 09/12/21 09/12/21 History Quetiapine Fumarate 300 mg PO HS 09/12/21 09/13/21 History Rosuvastatin Calcium 10 mg PO HS 09/12/21 09/13/21 History Tiotropium [place] [Spiriva 2 inh INHALATION DAILY 09/12/21 09/12/21 History Respimat] ALPRAZolam [Xanax 0.5mg tab] 0.5 mg PO TIDP PRN 09/13/21 09/13/21 History Height: 1.7 m Weight: 87.345 kg Laboratory Results:: Laboratory Results - last 24 hr 09/14/21 20:36: Gentamicin Trough < 0.6 09/15/21 00:59: Gentamicin Peak 15.2 H* 09/15/21 00:59: Sodium 142, Potassium 3.7 D, Chloride 105, Carbon Dioxide 32 H, Anion Gap 8.7, BUN 8, Creatinine 0.40 L, Estimated Creat Clear 71, Estimated GFR 157, Est GFR ( Amer) 190, Glucose 139 H D, Calcium 8.4 09/15/21 06:50: WBC 9.5, RBC 4.39, Hgb 12.6, Hct 40.0, MCV 91.3, MCH 28.7, MCHC 31.5 L, RDW 14.5, Plt Count 350, MPV 8.3, Neut % (Auto) 75.4, Lymph % (Auto) 17.3, [place] % (Auto) 6.0, Eos % (Auto) 0.5, Baso % (Auto) 0.8, Neut # (Auto) 7.2, Lymph # (Auto) 1.6, [place] # (Auto) 0.6, Eos # (Auto) 0.1, Baso # (Auto) 0.1 Medical History: Reports:: Anxiety, Asthma, Chronic Obstructive Pulmonary Disease (COPD), Coronary Artery Disease, Hyperlipidemia, Hypertension, Migraine Denies:: Cancer, Diabetes Mellitus Type 1, Diabetes Mellitus Type 2, Internal Pacemaker, MRSA Assessment and Plan (1) Cough Status: Acute Category: Medical Code(s): R05 - Cough (2) Tobacco abuse Status: Chronic Category: Medical Code(s): Z72.0 - Tobacco use (3) COPD (chronic obstructive pulmonary disease) Status: Chronic Qualifiers: COPD type: unspecified COPD Qualified Code(s): J44.9 - Chronic obstructive pulmonary disease, unspecified Category: Medical Code(s): J44.9 - Chronic obstructive pulmonary disease, unspecified (4) Generalized anxiety disorder Status: Chronic Category: Medical Code(s): F41.1 - Generalized anxiety disorder (5) Pneumonia Status: Acute Qualifiers: Pneumonia type: due to unspecified organism Laterality: unspecified laterality Lung location: unspecified part of lung Qualified Code(s): J18.9 - Pneumonia, unspecified organism Category: Medical Code(s): J18.9 - Pneumonia, unspecified organism (6) UTI (urinary tract infection) Status: Acute Qualifiers: Urinary tract infection type: site unspecified Hematuria presence: without hematuria Qualified Code(s): N39.0 - Urinary tract infection, site not specified Category: Medical Code(s): N39.0 - Urinary tract infection, site not specified (7) Abdominal pain Status: Acute Qualifiers
--- NOTE | 2021-09-15 11:37 | HMH.GSPN ---
Subjective Patient reports: no new complaints Narrative: CT cystogram yesterday revealed findings of emphysematous cystitis with small amount of extraluminal air showing improvement from initial CT scan. No evidence of extravasation. No evidence of any definite colovesical fistula. Some haziness in the pericolic fat at the sigmoid colon. Progress Note: A&P (1) Cough Status: Acute (2) Tobacco abuse Status: Chronic (3) COPD (chronic obstructive pulmonary disease) Status: Chronic (4) Generalized anxiety disorder Status: Chronic (5) Pneumonia Status: Acute (6) UTI (urinary tract infection) Status: Acute (7) Abdominal pain Status: Acute (8) Emphysematous cystitis Status: Acute Assessment and plan: CT cystogram yesterday revealed findings of emphysematous cystitis with small amount of extraluminal air showing improvement from initial CT scan. No evidence of extravasation. No evidence of any definite colovesical fistula. Some haziness in the pericolic fat at the sigmoid colon. Urine culture showing gram-negative rods. On levofloxacin and gentamicin. No definite evidence of diverticulitis. Continue medical management. (9) Obesity (BMI 30-39.9) Status: Acute (10) Colon, diverticulosis Status: Acute Assessment and plan: No definite diverticulitis. On appropriate antibiotics regardless. (11) Acquired hypothyroidism Status: Chronic (12) Cholelithiasis Status: Acute Assessment and plan: Incidental (13) SIRS (systemic inflammatory response syndrome) Status: Acute (14) Hypokalemia Status: Acute Assessment and Plan for All Diagnoses:: Patient still n.p.o. From general surgical standpoint okay to start diet. Exam Vital signs and Labs for Last 24 Hours: Temp Pulse Resp BP Pulse Ox 97.6 F 63 18 138/71 93 L 09/15/21 08:00 09/15/21 08:00 09/15/21 08:00 09/15/21 08:00 09/15/21 08:00 Laboratory Results - last 24 hr 09/14/21 20:36: Gentamicin Trough < 0.6 09/15/21 00:59: Gentamicin Peak 15.2 H* 09/15/21 00:59: Sodium 142, Potassium 3.7 D, Chloride 105, Carbon Dioxide 32 H, Anion Gap 8.7, BUN 8, Creatinine 0.40 L, Estimated Creat Clear 71, Estimated GFR 157, Est GFR ( Amer) 190, Glucose 139 H D, Calcium 8.4 09/15/21 06:50: WBC 9.5, RBC 4.39, Hgb 12.6, Hct 40.0, MCV 91.3, MCH 28.7, MCHC 31.5 L, RDW 14.5, Plt Count 350, MPV 8.3, Neut % (Auto) 75.4, Lymph % (Auto) 17.3, [place] % (Auto) 6.0, Eos % (Auto) 0.5, Baso % (Auto) 0.8, Neut # (Auto) 7.2, Lymph # (Auto) 1.6, [place] # (Auto) 0.6, Eos # (Auto) 0.1, Baso # (Auto) 0.1 I & O for Last 24 hours: Intake & Output 09/12/21 09/13/21 09/14/21 09/15/21 11:59 11:59 11:59 11:59 Intake Total 0 / 0 120 / 120 Output Total 400 / 400 910 / 910 Balance -400 / -400 -790 / -790 Weight 192 lb 14.4 oz 192 lb 10.944 oz 192 lb 9 oz Microbiology Reports for the Last 24 Hours: Microbiology 09/12/21 19:00 Blood Blood Culture - Preliminary NO GROWTH AFTER 48 HOURS 09/12/21 19:00 Blood Blood Culture - Preliminary NO GROWTH AFTER 48 HOURS 09/13/21 10:30 Urine,Catheterized Urine Culture - Preliminary NO GROWTH AFTER 24 HOURS Narrative: Patient sleeping
--- NOTE | 2021-09-15 18:55 | PC.NURSE ---
No acute changes. Did notify st that pt needed an eval for dysphasia. Speech will be here tomorrow to see pt and stated to keep her NPO, water only and broth if pt wishes. Pt refused broth at this time, and coughed up the inner shea of a green shea, she states she ate last night. Pt remains NPO and on 3 L NC with NAD. CB in reach and VSS.
[2021-09-16] VITALS (11 sets, daily range): BP systolic 136–169; BP diastolic 57–87; PULSE 64–88; RESP 16–22; TEMP 36.5–36.7; O2SAT 90–94; BMI 30.2
--- NOTE | 2021-09-16 06:00 | XR_ITS ---
PROCEDURE INFORMATION: Exam: XR Chest Exam date and time: 09/16/2021 6:00 AM Age: 70 years old Clinical indication: Shortness of breath; Additional info: Pna TECHNIQUE: Imaging protocol: XR of the chest. Views: 1 view. COMPARISON: CR XR CHEST PORTABLE 09/15/2021 5:55 AM FINDINGS: Lungs: Unchanged appearance of left basilar airspace consolidation, either atelectasis or pneumonia. Right lung remains clear. Pleural spaces: Small left pleural effusion. No pneumothorax. Heart/Mediastinum: Heart size within normal limits. Bones/joints: Osteopenia. Mild degenerative changes. IMPRESSION: Unchanged appearance of small left pleural effusion and left basilar atelectasis or pneumonia.
[2021-09-16 06:48] LABS: Basophils # 0.1 K/mm3 (0-0.2); Eosinophils # 0.1 K/mm3 (0.0-0.4); Eosinophils % 0.6 % (0.1-12.0); Hematocrit 38.4 % (37.0-47.0); Hemoglobin 11.9 g/dL (12.2-16.2); Lymphocytes # 2.1 K/mm3 (0.7-4.5); Lymphocytes % 22.3 % (10-50); Mean Corpuscular HGB Conc 30.9 g/dL (31.8-35.4); Mean Corpuscular Hemoglobin 28.4 pg (27.0-31.2); Mean Corpuscular Volume 91.8 fl (81-99); Mean Platelet Volume 8.6 fl (7.4-10.4); Monocytes # 0.7 K/mm3 (0.1-1.0); Monocytes % 7.4 % (1.7-9.3); Neutrophils # 6.5 K/mm3 (1.8-7.8); Neutrophils % 68.8 % (37.0-80.0); Platelet Count 325 K/mm3 (142-424); Red Blood Count 4.18 M/mm3 (4.20-5.40); Red Cell Distribution Width 14.8 % (11.5-17.5); White Blood Count 9.5 K/mm3 (4.8-10.8)
--- NOTE | 2021-09-16 08:46 | HMH.ACPN2 ---
Internal Medicine - PN: Subj *Date: 09/16/21 *Time: 09:11 Interval history: doing better - has had swallow issues for awhile but has ashraf-sensitive e coli in urine Exam Vital signs and Labs for Last 24 Hours: Temp Pulse Resp BP Pulse Ox 97.7 F 68 18 142/72 H 92 L 09/16/21 04:00 09/16/21 06:15 09/16/21 04:00 09/16/21 04:00 09/16/21 06:15 Laboratory Results - last 24 hr 09/16/21 06:20: WBC 9.5, RBC 4.18 L, Hgb 11.9 L, Hct 38.4, MCV 91.8, MCH 28.4, MCHC 30.9 L, RDW 14.8, Plt Count 325, MPV 8.6, Neut % (Auto) 68.8, Lymph % (Auto) 22.3, [place] % (Auto) 7.4, Eos % (Auto) 0.6, Baso % (Auto) 1.0, Neut # (Auto) 6.5, Lymph # (Auto) 2.1, [place] # (Auto) 0.7, Eos # (Auto) 0.1, Baso # (Auto) 0.1 I & O for Last 24 hours: Intake & Output 09/13/21 09/14/21 09/15/21 09/16/21 11:59 11:59 11:59 10:59 Intake Total 0 / 0 120 / 120 50 / 50 Output Total 400 / 400 910 / 910 1999 / 1999 Balance -400 / -400 -790 / -790 -1950 / -1950 Weight 192 lb 14.4 oz 192 lb 10.944 oz 192 lb 9 oz 192 lb 7.417 oz Microbiology Reports for the Last 24 Hours: Microbiology 09/13/21 10:30 Urine,Catheterized Urine Culture - Final NO GROWTH AFTER 48 HOURS 09/12/21 18:51 Urine,Catheterized Urine Culture - Final Escherichia coli - Constitutional no acute distress - *Routine HEENT Exam Head: Present: normocephalic Eye: Present: EOMI, PERRL ENT: Present: mucous membranes dry - *Routine Neck Exam Present: supple - *Routine Respiratory Exam Present: decreased breath sounds - *Routine Cardiovascular Exam Present: RRR - *Routine Abdominal Exam Present: soft - *Routine Extremities Exam Absent: calf tenderness - *Routine Skin Exam Present: intact - *Routine Neurological Exam Present: alert, CN II-XII intact - Routine Psychiatric Exam Present: normal affect Assessment and Plan (1) Cough Status: Acute Category: Medical Code(s): R05 - Cough (2) Tobacco abuse Status: Chronic Category: Medical Code(s): Z72.0 - Tobacco use (3) COPD (chronic obstructive pulmonary disease) Status: Chronic Qualifiers: COPD type: unspecified COPD Qualified Code(s): J44.9 - Chronic obstructive pulmonary disease, unspecified Category: Medical Code(s): J44.9 - Chronic obstructive pulmonary disease, unspecified (4) Generalized anxiety disorder Status: Chronic Category: Medical Code(s): F41.1 - Generalized anxiety disorder (5) Pneumonia Status: Acute Qualifiers: Pneumonia type: due to unspecified organism Laterality: unspecified laterality Lung location: unspecified part of lung Qualified Code(s): J18.9 - Pneumonia, unspecified organism Category: Medical Code(s): J18.9 - Pneumonia, unspecified organism (6) UTI (urinary tract infection) Status: Acute Qualifiers: Urinary tract infection type: site unspecified Hematuria presence: without hematuria Qualified Code(s): N39.0 - Urinary tract infection, site not specified Category: Medical Code(s): N39.0 - Urinary tract infection, site not specified (7) Abdominal pain Status: Acute Qualifiers: Abdominal location: generalized Qualified Code(s): R10.84 - Generalized abdominal pain Category: Medical Code(s): R10.9 - Unspecified abdominal pain (8) Emphysematous cystitis Status: Acute Category: Medical Code(s): N30.80 - Other cystitis without hematuria (9) Obesity (BMI 30-39.9) Status: Acute Category: Medical Code(s): E66.9 - Obesity, unspecified (10) Colon, diverticulosis Status: Acute Category: Medical Code(s): K57.30 - Diverticulosis of large intestine without perforation or abscess without bleeding (11) Acquired hypothyroidism Status: Chronic Category: Medical Code(s): E03.9 - Hypothyroidism, unspecified (12) Cholelithiasis Status: Acute Qualifiers: Cholelithiasis location: gallbladder Cholecysti
--- NOTE | 2021-09-16 11:42 | HMH.ACPN ---
Internal Medicine - PN: Subj *Date: 09/16/21 *Time: 11:42 Exam Vital signs and Labs for Last 24 Hours: Temp Pulse Resp BP Pulse Ox 98.1 F 70 22 141/57 H 90 L 09/16/21 08:00 09/16/21 08:00 09/16/21 08:00 09/16/21 08:00 09/16/21 08:00 Laboratory Results - last 24 hr 09/16/21 06:20: WBC 9.5, RBC 4.18 L, Hgb 11.9 L, Hct 38.4, MCV 91.8, MCH 28.4, MCHC 30.9 L, RDW 14.8, Plt Count 325, MPV 8.6, Neut % (Auto) 68.8, Lymph % (Auto) 22.3, [place] % (Auto) 7.4, Eos % (Auto) 0.6, Baso % (Auto) 1.0, Neut # (Auto) 6.5, Lymph # (Auto) 2.1, [place] # (Auto) 0.7, Eos # (Auto) 0.1, Baso # (Auto) 0.1 I & O for Last 24 hours: Intake & Output 09/13/21 09/14/21 09/15/21 09/16/21 23:59 23:59 23:59 22:59 Intake Total 120 / 120 50 / 50 Output Total 200 / 400 450 / 1110 2060 / 2660 1900 / 1900 Balance -200 / -400 -330 / -990 -2010 / -2610 -1900 / -1900 Weight 87.498 kg 87.4 kg 87.345 kg 87.3 kg Microbiology Reports for the Last 24 Hours: Microbiology 09/13/21 10:30 Urine,Catheterized Urine Culture - Final NO GROWTH AFTER 48 HOURS 09/12/21 18:51 Urine,Catheterized Urine Culture - Final Escherichia coli Assessment and Plan (1) Cough Status: Acute Category: Medical Code(s): R05 - Cough (2) Tobacco abuse Status: Chronic Category: Medical Code(s): Z72.0 - Tobacco use (3) COPD (chronic obstructive pulmonary disease) Status: Chronic Qualifiers: COPD type: unspecified COPD Qualified Code(s): J44.9 - Chronic obstructive pulmonary disease, unspecified Category: Medical Code(s): J44.9 - Chronic obstructive pulmonary disease, unspecified (4) Generalized anxiety disorder Status: Chronic Category: Medical Code(s): F41.1 - Generalized anxiety disorder (5) Pneumonia Status: Acute Qualifiers: Pneumonia type: due to unspecified organism Laterality: unspecified laterality Lung location: unspecified part of lung Qualified Code(s): J18.9 - Pneumonia, unspecified organism Category: Medical Code(s): J18.9 - Pneumonia, unspecified organism (6) UTI (urinary tract infection) Status: Acute Qualifiers: Urinary tract infection type: site unspecified Hematuria presence: without hematuria Qualified Code(s): N39.0 - Urinary tract infection, site not specified Category: Medical Code(s): N39.0 - Urinary tract infection, site not specified (7) Abdominal pain Status: Acute Qualifiers: Abdominal location: generalized Qualified Code(s): R10.84 - Generalized abdominal pain Category: Medical Code(s): R10.9 - Unspecified abdominal pain (8) Emphysematous cystitis Status: Acute Category: Medical Code(s): N30.80 - Other cystitis without hematuria (9) Obesity (BMI 30-39.9) Status: Acute Category: Medical Code(s): E66.9 - Obesity, unspecified (10) Colon, diverticulosis Status: Acute Category: Medical Code(s): K57.30 - Diverticulosis of large intestine without perforation or abscess without bleeding (11) Acquired hypothyroidism Status: Chronic Category: Medical Code(s): E03.9 - Hypothyroidism, unspecified (12) Cholelithiasis Status: Acute Qualifiers: Cholelithiasis location: gallbladder Cholecystitis presence: without cholecystitis Biliary obstruction: without biliary obstruction Qualified Code(s): K80.20 - Calculus of gallbladder without cholecystitis without obstruction Category: Medical Code(s): K80.20 - Calculus of gallbladder without cholecystitis without obstruction (13) SIRS (systemic inflammatory response syndrome) Status: Acute Category: Medical Code(s): R65.10 - Systemic inflammatory response syndrome (SIRS) of non-infectious origin without acute organ dysfunction (14) Hypokalemia Status: Acute Category: Medical Code(s): E87.6 - Hypokalemia (15) E. coli UTI (urinary tract infection) Status: Acute Category: Medical Code
--- NOTE | 2021-09-16 20:21 | PC.NURSE ---
Pt has remained NPO, Dr. Mcclain aware and ST did see pt today. ST plans for a MBS tomorrow., otherwise no acute changes. VSS. Has been up to chiar this shift.
[2021-09-17] VITALS (11 sets, daily range): BP systolic 141–179; BP diastolic 72–87; PULSE 59–86; RESP 16–18; TEMP 36.6–36.9; O2SAT 91–96; BMI 30.1
--- NOTE | 2021-09-17 06:00 | XR_ITS ---
PROCEDURE INFORMATION: Exam: XR Chest Exam date and time: 09/17/2021 6:00 AM Age: 70 years old Clinical indication: Shortness of breath; Additional info: Pna TECHNIQUE: Imaging protocol: XR of the chest. Views: 1 view. COMPARISON: CR XR CHEST PORTABLE 09/16/2021 5:36 AM FINDINGS: Lungs: Left lung base airspace disease is unchanged. Pleural spaces: Left-sided pleural effusion is unchanged. Heart/Mediastinum: Unremarkable. No cardiomegaly. Bones/joints: Unremarkable. IMPRESSION: Stable exam.
[2021-09-17 06:42] LABS: Basophils % 0.4 % (0.1-2.0); Eosinophils % 0.3 % (0.1-12.0); Hematocrit 40.1 % (37.0-47.0); Hemoglobin 12.5 g/dL (12.2-16.2); Lymphocytes # 2.3 K/mm3 (0.7-4.5); Lymphocytes % 25.7 % (10-50); Mean Corpuscular HGB Conc 31.1 g/dL (31.8-35.4); Mean Corpuscular Hemoglobin 28.2 pg (27.0-31.2); Mean Corpuscular Volume 90.8 fl (81-99); Mean Platelet Volume 8.5 fl (7.4-10.4); Monocytes # 0.7 K/mm3 (0.1-1.0); Monocytes % 7.5 % (1.7-9.3); Neutrophils % 66.1 % (37.0-80.0); Platelet Count 333 K/mm3 (142-424); Red Blood Count 4.41 M/mm3 (4.20-5.40); Red Cell Distribution Width 14.7 % (11.5-17.5); White Blood Count 9.1 K/mm3 (4.8-10.8)
--- NOTE | 2021-09-17 08:13 | P.PN_ITS ---
Subjective Patient reports: no new complaints Narrative: Denies abdominal pain. Progress Note: A&P (1) Cough Status: Acute (2) Tobacco abuse Status: Chronic (3) COPD (chronic obstructive pulmonary disease) Status: Chronic (4) Generalized anxiety disorder Status: Chronic (5) Pneumonia Status: Acute (6) UTI (urinary tract infection) Status: Acute (7) Abdominal pain Status: Acute (8) Emphysematous cystitis Status: Acute (9) Obesity (BMI 30-39.9) Status: Acute (10) Colon, diverticulosis Status: Acute (11) Acquired hypothyroidism Status: Chronic (12) Cholelithiasis Status: Acute (13) SIRS (systemic inflammatory response syndrome) Status: Acute (14) Hypokalemia Status: Acute (15) E. coli UTI (urinary tract infection) Status: Acute Assessment and Plan for All Diagnoses:: Continue medical management. Exam Vital signs and Labs for Last 24 Hours: Temp Pulse Resp BP Pulse Ox 97.9 F 68 18 156/72 H 92 L 09/17/21 04:00 09/17/21 06:14 09/17/21 04:00 09/17/21 04:00 09/17/21 06:14 Laboratory Results - last 24 hr 09/17/21 06:01: WBC 9.1, RBC 4.41, Hgb 12.5, Hct 40.1, MCV 90.8, MCH 28.2, MCHC 31.1 L, RDW 14.7, Plt Count 333, MPV 8.5, Neut % (Auto) 66.1, Lymph % (Auto) 25.7, [place] % (Auto) 7.5, Eos % (Auto) 0.3, Baso % (Auto) 0.4, Neut # (Auto) 6.0, Lymph # (Auto) 2.3, [place] # (Auto) 0.7, Eos # (Auto) 0.0, Baso # (Auto) 0.0 I & O for Last 24 hours: Intake & Output 09/14/21 09/15/21 09/16/21 09/17/21 12:59 12:59 11:59 11:59 Intake Total 750 / 750 Output Total 5200 / 5200 Balance -4450 / -4450 Weight 191 lb 12.835 oz - *Routine Abdominal Exam Present: soft. Absent: tenderness
[2021-09-17 08:23] LABS: Anion Gap 7.7 mEq/L (5-15); Blood Urea Nitrogen 6 mg/dl (7-17); Calcium 8.9 mg/dl (8.4-10.2); Carbon Dioxide 36 mmol/L (22.0-30.0); Chloride 103 mmol/L (98-107); Creatinine Clearance Estimated 71 mL/min (50-200); Estimated Glomerular Filt Rate 122 ml/min (>60); GFR (African American) 147 ML/MIN (>60); Glucose 90 mg/dl (74-100); Potassium 3.7 mmoL/L (3.5-5.1); Sodium 143 mmol/L (136-145)
--- NOTE | 2021-09-17 09:10 | HMH.ACPN2 ---
Internal Medicine - PN: Subj *Date: 09/17/21 *Time: 08:00 Interval history: pt laying in bed. pt states she sat up yesterday in chair. was laying in stool. Exam Vital signs and Labs for Last 24 Hours: Temp Pulse Resp BP Pulse Ox 98.3 F 59 L 17 160/74 H 94 L 09/17/21 08:00 09/17/21 08:00 09/17/21 08:00 09/17/21 08:00 09/17/21 08:00 Laboratory Results - last 24 hr 09/17/21 06:01: WBC 9.1, RBC 4.41, Hgb 12.5, Hct 40.1, MCV 90.8, MCH 28.2, MCHC 31.1 L, RDW 14.7, Plt Count 333, MPV 8.5, Neut % (Auto) 66.1, Lymph % (Auto) 25.7, [place] % (Auto) 7.5, Eos % (Auto) 0.3, Baso % (Auto) 0.4, Neut # (Auto) 6.0, Lymph # (Auto) 2.3, [place] # (Auto) 0.7, Eos # (Auto) 0.0, Baso # (Auto) 0.0 09/17/21 06:01: Sodium 143, Potassium 3.7, Chloride 103, Carbon Dioxide 36 H, Anion Gap 7.7, BUN 6 L, Creatinine 0.50 L D, Estimated Creat Clear 71, Estimated GFR 122, Est GFR ( Amer) 147 D, Glucose 90, Calcium 8.9 I & O for Last 24 hours: Intake & Output 09/14/21 09/15/21 09/16/21 09/17/21 12:59 12:59 11:59 11:59 Intake Total 870 / 870 Output Total 5200 / 5200 Balance -4330 / -4330 Weight 191 lb 12.835 oz - Constitutional no acute distress - *Routine HEENT Exam Head: Present: normocephalic Eye: Present: PERRL ENT: Present: mucous membranes moist - *Routine Neck Exam Present: supple. Absent: lymphadenopathy - *Routine Respiratory Exam Present: CTA bilaterally - *Routine Cardiovascular Exam Present: RRR - *Routine Abdominal Exam Present: soft, normoactive bowel sounds. Absent: tenderness - *Routine Extremities Exam Absent: cyanosis, clubbing, edema - *Routine Skin Exam Present: warm. Absent: rash - *Routine Neurological Exam Present: alert, oriented X3 Assessment and Plan (1) Cough Status: Acute Category: Medical Code(s): R05 - Cough (2) Tobacco abuse Status: Chronic Category: Medical Code(s): Z72.0 - Tobacco use (3) COPD (chronic obstructive pulmonary disease) Status: Chronic Qualifiers: COPD type: unspecified COPD Qualified Code(s): J44.9 - Chronic obstructive pulmonary disease, unspecified Category: Medical Code(s): J44.9 - Chronic obstructive pulmonary disease, unspecified (4) Generalized anxiety disorder Status: Chronic Category: Medical Code(s): F41.1 - Generalized anxiety disorder (5) Pneumonia Status: Acute Qualifiers: Pneumonia type: due to unspecified organism Laterality: unspecified laterality Lung location: unspecified part of lung Qualified Code(s): J18.9 - Pneumonia, unspecified organism Category: Medical Code(s): J18.9 - Pneumonia, unspecified organism (6) UTI (urinary tract infection) Status: Acute Qualifiers: Urinary tract infection type: site unspecified Hematuria presence: without hematuria Qualified Code(s): N39.0 - Urinary tract infection, site not specified Category: Medical Code(s): N39.0 - Urinary tract infection, site not specified (7) Abdominal pain Status: Acute Qualifiers: Abdominal location: generalized Qualified Code(s): R10.84 - Generalized abdominal pain Category: Medical Code(s): R10.9 - Unspecified abdominal pain (8) Emphysematous cystitis Status: Acute Category: Medical Code(s): N30.80 - Other cystitis without hematuria (9) Obesity (BMI 30-39.9) Status: Acute Category: Medical Code(s): E66.9 - Obesity, unspecified (10) Colon, diverticulosis Status: Acute Category: Medical Code(s): K57.30 - Diverticulosis of large intestine without perforation or abscess without bleeding (11) Acquired hypothyroidism Status: Chronic Category: Medical Code(s): E03.9 - Hypothyroidism, unspecified (12) Cholelithiasis Status: Acute Qualifiers: Cholelithiasis location: gallbladder Cholecystitis presence: without cholecystitis Biliary obstruction: without biliary obstruction Qualified Code(s): K80.20 - Calculus of gallbladder wi
--- NOTE | 2021-09-17 11:25 | HMH.PTEV ---
Physical Therapy Evaluation Rehab PT IP Evaluation Start: 09/17/21 09:09 Freq: ONCE Status: Active Protocol: Document 09/17/21 10:15 PHOLUCI (Rec: 09/17/21 11:25 PHORNE [id number]) Subjective/History History History 70 yowf adm to [facility] with abdominal pain and UTI. She reports she lives with her son , no steps to enter the home and she ambulates with a rolator at baseline. Subjective Subjective Pt c/o feeling tired this morning, but agrees to treatment. Rehab PT IP Eval Objective Appearance Patient Behavior Appropriate Patient Orientation Person,Place,Time Difficulty following instructions none Speech Pattern Clear Ambulation Patient Able to Ambulate No Balance Ability to Arise Able, uses arms to help Sitting Balance Steady, safe Standing Balance Unsteady Dynamic Sitting Balance Ability Good Dynamic Standing Balance Ability Poor Transfers Bed Transfer Ability Minimal x 1 (25% assist) Sit to Stand Bed Transfer Ability Minimal x 1 (25% assist) ROM All Extremities PT ROM Status WFL Rehab PT IP prob,goals,plan Problems Date of Evaluation: 09/17/21 PT IP Problems Bed Mobility,Transfers,Gait Rehab Potential Rehab Potential Good Plan PT Intervention Plan Bed Mobility,Transfers,Gait, Therapeutic Exercise PT Plan Frequency BID Duration LOS Discharge Goals Bed Transfer Ability Contact Guard/Hand Hold Sit to Stand Chair Transfer Ability Contact Guard/Hand Hold Ambulation Assistive Device Rolling Walker Ambulation Distance (feet) 10 Discharge Plan PT Discharge Plan Pt is most appropriate for rehab placement once medically stable. G -code Required No Eval Complexity Eval Charge Codes 77747 - Moderate Complexity PHYSICIAN CERTIFICATION: I certify the specified therapy services for Naida Sommer are required, authorized, and reviewed every 30 days.
--- NOTE | 2021-09-17 12:38 | PC.NURSE ---
PT IS RESTING IN BED. MEDICATED PER MAR FOR DISCOMFORT. ALERT AND ORIENTED X4. LUNG SOUNDS HAVE SCATTERED WHEEZES. ABDOMEN SOFT/NON TENDER WITH ACTIVE BOWEL SOUNDS. PT TOOK ALL HER PO MEDICATION THIS MORNING W/O DIFFICULTY. PT STATES THE ISSUE WITH SWALLOWING HAS BEEN GOING OFF AND ON FOR SOMETIME NOW WHEN SHE EATS. PT IS SUPPOSED TO HAVE A MODIFIED SWALLOWING TEST TODAY. O2 SATURATION HAS MAINTAINED 90-95% ON 2 L NC. WILL CONTINUE TO MONITOR.
--- NOTE | 2021-09-17 13:24 | HMH.PULMPN ---
Internal Medicine - PN: Subj *Date: 09/17/21 *Time: 17:16 Interval history: No acute respiratory events over the weekend. Patient denies any new respiratory complaints. Exam - Constitutional Constitutional:: Present: no acute distress, comfortable - HENMT Exam HENMT: Present: normocephalic, atraumatic - Eye Exam Eyes:: Present: normal appearance both eyes and related structures - Neck Exam Neck:: Present: normal visual inspection - Respiratory Exam Respiratory:: Present: able to speak in complete sentences, no respiratory distress. Absent: wheezing - Cardiovascular Exam Cardiac:: Present: S1, S2 - GI Exam GI:: Present: soft, normoactive bowel sounds - Skin Exam Skin: Present: warm, no rash - Neurological Exam Neurological: Present: alert, awake, normal cognition - Extremities Exam Extremities: Present: no cyanosis, no clubbing, no edema Assessment and Plan (1) Cough Status: Acute Category: Medical Code(s): R05 - Cough (2) Tobacco abuse Status: Chronic Category: Medical Code(s): Z72.0 - Tobacco use (3) COPD (chronic obstructive pulmonary disease) Status: Chronic Qualifiers: COPD type: unspecified COPD Qualified Code(s): J44.9 - Chronic obstructive pulmonary disease, unspecified Category: Medical Code(s): J44.9 - Chronic obstructive pulmonary disease, unspecified (4) Generalized anxiety disorder Status: Chronic Category: Medical Code(s): F41.1 - Generalized anxiety disorder (5) Pneumonia Status: Acute Qualifiers: Pneumonia type: due to unspecified organism Laterality: unspecified laterality Lung location: unspecified part of lung Qualified Code(s): J18.9 - Pneumonia, unspecified organism Category: Medical Code(s): J18.9 - Pneumonia, unspecified organism (6) UTI (urinary tract infection) Status: Acute Qualifiers: Urinary tract infection type: site unspecified Hematuria presence: without hematuria Qualified Code(s): N39.0 - Urinary tract infection, site not specified Category: Medical Code(s): N39.0 - Urinary tract infection, site not specified (7) Abdominal pain Status: Acute Qualifiers: Abdominal location: generalized Qualified Code(s): R10.84 - Generalized abdominal pain Category: Medical Code(s): R10.9 - Unspecified abdominal pain (8) Emphysematous cystitis Status: Acute Category: Medical Code(s): N30.80 - Other cystitis without hematuria (9) Obesity (BMI 30-39.9) Status: Acute Category: Medical Code(s): E66.9 - Obesity, unspecified (10) Colon, diverticulosis Status: Acute Category: Medical Code(s): K57.30 - Diverticulosis of large intestine without perforation or abscess without bleeding (11) Acquired hypothyroidism Status: Chronic Category: Medical Code(s): E03.9 - Hypothyroidism, unspecified (12) Cholelithiasis Status: Acute Qualifiers: Cholelithiasis location: gallbladder Cholecystitis presence: without cholecystitis Biliary obstruction: without biliary obstruction Qualified Code(s): K80.20 - Calculus of gallbladder without cholecystitis without obstruction Category: Medical Code(s): K80.20 - Calculus of gallbladder without cholecystitis without obstruction (13) SIRS (systemic inflammatory response syndrome) Status: Acute Category: Medical Code(s): R65.10 - Systemic inflammatory response syndrome (SIRS) of non-infectious origin without acute organ dysfunction (14) Hypokalemia Status: Acute Category: Medical Code(s): E87.6 - Hypokalemia (15) E. coli UTI (urinary tract infection) Status: Acute Category: Medical Code(s): N39.0 - Urinary tract infection, site not specified; B96.20 - Unspecified Escherichia coli [E. coli] as the cause of diseases classified elsewhere - Assessment and plan all Dx Assessment and Plan for all problems:: Assessment and Plan for all problems:: #Acute on chronic hypoxic respiratory failure: #COPD ex
--- NOTE | 2021-09-17 14:00 | FL_ITS ---
PROCEDURE: FL BARIUM SWALLOW MODIFIED CLINICAL INDICATION: Dysphagia, coughing after eating COMPARISON: No exams were available for comparison TECHNIQUE: Patient administered varying consistencies of barium contrast, while viewed in lateral position under real-time fluoroscopy with cine recording. FLUOROSCOPY TIME: The study was performed in conjunction with speech pathologist. Please see that report & recommendations. FINDINGS: Patient was given varying consistencies of barium. There is minimal silent aspiration with thin barium. There is a small esophageal diverticulum projecting posteriorly at the C5 level. There were no issues with putting or nectar consistency or honey.. IMPRESSION: Mild silent aspiration with thin barium Posterior esophageal diverticulum Please see speech pathologist report and recommendations. Dictated by: Jose Champion MD 09/17/2021 18:17 Jose Champion MD in [place] 09/17/2021 18:17
--- NOTE | 2021-09-17 14:17 | HMH.SLMBS2 ---
Speech & Language Evaluation Speech/Language Mod Barium Swallow Start: 09/16/21 11:34 Freq: ONCE Status: Complete Protocol: Document 09/17/21 13:51 CRIS (Rec: 09/17/21 14:17 CRIS [id number]) General Information General Current Food Consistancy Full Liquids Dentition Edentulous Oxygen Status Nasal Cannula Facial Symmetry Symmetrical Patient Orientation Person,Place Ability to Follow Directions Good Communication Ability No Impairment MBS Recommendations Diet Dietary Recommendations Pureed,Honey Liquids Treatment/Strategies Strategy/Precaution Recommend Sitting Upright (90 deg), Double Swallow,No Straw,Small Bites and Sips,Alternate Liquids/Solids Referrals/Other Recommended Referrals GI Consult Mod Barium Swallow Impressions Summary and Impressions Oral Phase Impression No Impairment (WFL) Oral Phase Summary Ms. Sommer was given the following consistencies: thins via straw and open cup, nectar, honey, pudding, pureed , and mechanical soft. No oral phase impairments noted. Pharyngeal Phase Impression Severe Impairment Pharyngeal Phase Summary Ms. Sommer did exhibit silent aspiration with thins and nectar consistency. It was noted that a pocket of food presented in the esophagus which could cause aspiration on residue. It is recommended that she have further testing for esophageal phase of swallowing. It is also recommended she be placed on pureed diet with honey thick liquids. Speech therapy is warranted at this time. Speech/Language MBS Assessment/Goals/Plan Assessment Date of Evaluation: 09/17/21 Evaluation Type 30 Day Certification Assessment/Problems Dysphagia Does Patient Qualify for Service Yes Qualify/Failure Comment Patient would benefit from swallow therapy due to silent aspiration of thins and nectar . Recommendations PHYSICIAN CERTIFICATION: The specified therapy services are required, authorized, and reviewed every 30 days. Pt will be seen # times/week 1 for # weeks 1 Diet Recommendations Pureed
--- NOTE | 2021-09-17 14:24 | HMH.OTEV ---
OT Inpatient Evaluation Rehab OT IP Evaluation Start: 09/17/21 09:09 Freq: ONCE Status: Complete Protocol: Document 09/17/21 14:20 [facility] (Rec: 09/17/21 14:24 [facility] [id number]) Rehab OT IP Assessment Subjective History Pt oriented x 3 on arrival. Pt agreeable to engage in therapy evaluation. Pt was admitted via Ed on 09/12/21 due to PNA and UTI. Pt has a past medical history of Anxiety, Asthma, Cancer, Chronic Obstructive Pulmonary Disease (COPD), Coronary Artery Disease, Hyperlipidemia , Hypertension, Migraine. Pt reports prior to hospital she lived at home with her son. pt claims she was independent with all ADLs. However she was dependent upon son to complete IADLs. She did use a walker during ambulation. Subjective My son helps. Objective Patient Orientation Person,Place,Birthday Upper Extremity Gross ROM WFL Bed Mobility bed mobility-scooting,bed mobility - supine/sit,bed mobility - rolling Assist Level Minimal x 1 (25% assist) Transfer Training Sit/Stand Transfer Assist Level Minimal x 1 (25% assist) Chair Transfer Ability Minimal x 1 (25% assist) Chair Transfer Technique Sit to/from Ambulatory Chair Transfer Assistive Devices Rolling Walker Rehab OT IP prob,goals,plan Problems Date of Evaluation: 09/17/21 OT IP Problems Bed Mobility,Transfers,Gait, Balance,Self care,Safety Rehab Potential Rehab Potential Good Equipment Needs Assistive Devices Rolling / Wheeled Walker Plan OT intervention Plan Bed Mobility,Transfers,Gait, Balance,Self care,Safety, Therapeutic Exercise OT Plan Frequency BID Duration LOS Discharge Goals Bed Mobility Ability Standby Assistance Sit to Stand Chair Transfer Ability Contact Guard/Hand Hold Chair Transfer Ability Contact Guard/Hand Hold Chair Transfer Technique Sit to/from Ambulatory Chair Transfer Assistive Devices Rolling Walker Feeding Ability Assist with Tray Set Up Lower Body Dressing Ability Assistance X1 Upper Body Dressing Ability
[2021-09-18] VITALS (14 sets, daily range): BP systolic 128–183; BP diastolic 54–81; PULSE 61–76; RESP 14–20; TEMP 36.7–37.1; O2SAT 91–98; BMI 30.1
--- NOTE | 2021-09-18 06:00 | XR_ITS ---
PROCEDURE INFORMATION: Exam: XR Chest Exam date and time: 09/18/2021 6:00 AM Age: 70 years old Clinical indication: Shortness of breath; Additional info: Pna TECHNIQUE: Imaging protocol: XR of the chest. Views: 1 view. COMPARISON: CR XR CHEST PORTABLE 09/17/2021 5:56 AM FINDINGS: Lungs: . Some airspace disease is seen in the left lung base. Pleural spaces: Blunting of the left CP angle is present. No pneumothorax. Heart/Mediastinum: Unremarkable. No cardiomegaly. Bones/joints: Unremarkable. IMPRESSION: Stable left lung base airspace disease and blunting of the left CP angle.
--- NOTE | 2021-09-18 06:41 | PC.NURSE ---
No acute changes. Pt requested Alpralozam at beginning of shift. Administered per JAN with favorable results. No other complaints voiced to staff. Slept well t/o shift.
[2021-09-18 07:16] LABS: Basophils % 0.5 % (0.1-2.0); Eosinophils % 0.4 % (0.1-12.0); Hematocrit 42.8 % (37.0-47.0); Hemoglobin 13.2 g/dL (12.2-16.2); Lymphocytes # 2.8 K/mm3 (0.7-4.5); Lymphocytes % 31.5 % (10-50); Mean Corpuscular HGB Conc 30.9 g/dL (31.8-35.4); Mean Corpuscular Hemoglobin 28.2 pg (27.0-31.2); Mean Corpuscular Volume 91.5 fl (81-99); Mean Platelet Volume 8.7 fl (7.4-10.4); Monocytes # 0.7 K/mm3 (0.1-1.0); Monocytes % 7.9 % (1.7-9.3); Neutrophils # 5.4 K/mm3 (1.8-7.8); Neutrophils % 59.8 % (37.0-80.0); Platelet Count 356 K/mm3 (142-424); Red Blood Count 4.68 M/mm3 (4.20-5.40); Red Cell Distribution Width 14.6 % (11.5-17.5)
[2021-09-18 07:23] LABS: Anion Gap 10.6 mEq/L (5-15); Blood Urea Nitrogen 6 mg/dl (7-17); Calcium 9.4 mg/dl (8.4-10.2); Carbon Dioxide 35 mmol/L (22.0-30.0); Chloride 102 mmol/L (98-107); Creatinine Clearance Estimated 71 mL/min (50-200); Estimated Glomerular Filt Rate 122 ml/min (>60); GFR (African American) 147 ML/MIN (>60); Glucose 107 mg/dl (74-100); Potassium 3.6 mmoL/L (3.5-5.1); Sodium 144 mmol/L (136-145)
--- NOTE | 2021-09-18 08:38 | HMH.ACPN2 ---
Internal Medicine - PN: Subj *Date: 09/18/21 *Time: 08:38 Interval history: 70-year-old female patient sitting up in bed resting quietly she denies any respiratory distress during the night. She is tolerating pur?ed diet with honey thick liquids but still complains of being hungry. Will discuss with dietitian. Patient informed that she will be on this diet to be evaluated for her esophageal diverticulum. Possible hospice was discussed with patient and she adamantly disagrees with this. She is in agreement to being discharged to a rehab facility and will start that process. Exam Vital signs and Labs for Last 24 Hours: Temp Pulse Resp BP Pulse Ox 98.1 F 72 16 182/66 H 92 L 09/18/21 07:44 09/18/21 07:44 09/18/21 07:44 09/18/21 07:44 09/18/21 07:44 Laboratory Results - last 24 hr 09/17/21 06:01: Sodium 143, Potassium 3.7, Chloride 103, Carbon Dioxide 36 H, Anion Gap 7.7, BUN 6 L, Creatinine 0.50 L D, Estimated Creat Clear 71, Estimated GFR 122, Est GFR ( Amer) 147 D, Glucose 90, Calcium 8.9 09/18/21 06:37: WBC 9.0, RBC 4.68, Hgb 13.2, Hct 42.8, MCV 91.5, MCH 28.2, MCHC 30.9 L, RDW 14.6, Plt Count 356, MPV 8.7, Neut % (Auto) 59.8, Lymph % (Auto) 31.5, [place] % (Auto) 7.9, Eos % (Auto) 0.4, Baso % (Auto) 0.5, Neut # (Auto) 5.4, Lymph # (Auto) 2.8, [place] # (Auto) 0.7, Eos # (Auto) 0.0, Baso # (Auto) 0.0 09/18/21 06:37: Sodium 144, Potassium 3.6, Chloride 102, Carbon Dioxide 35 H, Anion Gap 10.6, BUN 6 L, Creatinine 0.50 L, Estimated Creat Clear 71, Estimated GFR 122, Est GFR ( Amer) 147, Glucose 107 H, Calcium 9.4 I & O for Last 24 hours: Intake & Output 09/16/21 09/16/21 09/17/21 09/18/21 00:59 23:59 23:59 23:59 Intake Total 480 / 480 120 / 120 Output Total 2950 / 3550 600 / 600 Balance -2470 / -3070 -480 / -480 Weight 191 lb 12.835 oz 191 lb 12.835 oz Microbiology Reports for the Last 24 Hours: Microbiology 09/12/21 19:00 Blood Blood Culture - Final NO GROWTH AFTER 5 DAYS 09/12/21 19:00 Blood Blood Culture - Final NO GROWTH AFTER 5 DAYS 09/13/21 12:30 Sputum - Expectorated Sputum Gram Stain - Final 09/13/21 12:30 Sputum - Expectorated Sputum Sputum Culture - Final No growth. - Constitutional no acute distress - *Routine HEENT Exam Head: Present: normocephalic Eye: Present: EOMI ENT: Present: mucous membranes moist - *Routine Neck Exam Present: trachea midline. Absent: tracheal deviation - *Routine Respiratory Exam Present: CTA bilaterally. Absent: accessory muscle use - *Routine Cardiovascular Exam Present: RRR - *Routine Abdominal Exam Present: soft, normoactive bowel sounds. Absent: tenderness, firm - *Routine Extremities Exam Present: full ROM, pulses intact. Absent: cyanosis, clubbing, calf tenderness - *Routine Skin Exam Present: intact, dry, warm. Absent: cyanosis, erythema - *Routine Neurological Exam Present: alert, oriented X3. Absent: motor deficit - Routine Psychiatric Exam Present: normal affect, normal thought process. Absent: visual hallucinations Assessment and Plan (1) Cough Status: Acute Category: Medical Code(s): R05 - Cough (2) Tobacco abuse Status: Chronic Category: Medical Code(s): Z72.0 - Tobacco use (3) COPD (chronic obstructive pulmonary disease) Status: Chronic Qualifiers: COPD type: unspecified COPD Qualified Code(s): J44.9 - Chronic obstructive pulmonary disease, unspecified Category: Medical Code(s): J44.9 - Chronic obstructive pulmonary disease, unspecified (4) Generalized anxiety disorder Status: Chronic Category: Medical Code(s): F41.1 - Generalized anxiety disorder (5) Pneumonia Status: Acute Qualifiers: Pneumonia type: due to unspecified organism Laterality: unspecified laterality Lung location: unspecified part of lung Qualified Code(s): J18.9 - Pneumonia, uns
--- NOTE | 2021-09-18 08:44 | SW/DCPLANNER ---
Addendum entered by Dinorah Reardon 09/19/21 13:35: Per Sania galaviz/ [facility] precert has been started on this patient. Addendum entered by Dinorah Reardon 09/19/21 09:41: This patient is now agreeable to placement at [facility]. I also spoke with patients son whom is agreeable to placement. Patient information has been faxed to Sania galaviz/[facility]. Patient is currently stable for discharge. Addendum entered by Dinorah Reardon 09/18/21 13:11: This patient is not agreeable to placement at [facility] and prefers to discharge home if [facility] can not accept her. After lengthy discussion with patient regarding placement vs home patient still is refusing placement. I have informed Dr Mcclain/ [facility]. I will continue to follow up with this patient until medically stable for discharge. Addendum entered by Dinorah Reardon 09/18/21 12:28: [facility], [facility] and [facility] are out of network with this patients insurance. Patient information has been faxed to Sania galaviz/ [facility]. I will follow up with this patient regarding situation. Original Note: I spoke with this patient regarding discharge plans. Patient is agreeable to placement at [facility], [facility] or [facility]. I will follow up with facilities this AM and fax patient information. Dr Mcclain has stated that patient is medically stable for discharge.
--- NOTE | 2021-09-18 19:25 | PC.NURSE ---
continues on pureed diet with advancement to nectar thick liquids via speech therapy. pt was educated on dietary modifications and voiced understanding of limitations.
[2021-09-19] VITALS (11 sets, daily range): BP systolic 131–164; BP diastolic 55–82; PULSE 60–78; RESP 16–20; TEMP 36.6–37.6; O2SAT 90–95; BMI 30.1
--- NOTE | 2021-09-19 05:58 | PC.NURSE ---
No acute changes. Pt c/o back pain at beginning of shift. Scheduled pain med given per JAN with favorable results. 2 L nc tolerated well with sats above 92%. Slept well t/o shift
--- NOTE | 2021-09-19 06:00 | XR_ITS ---
PROCEDURE INFORMATION: Exam: XR Chest Exam date and time: 09/19/2021 6:00 AM Age: 70 years old Clinical indication: Shortness of breath; Additional info: Pna TECHNIQUE: Imaging protocol: XR of the chest. Views: 1 view. COMPARISON: CR XR CHEST PORTABLE 09/18/2021 5:12 AM FINDINGS: Lungs: Near complete interval resolution of left lung base airspace disease. No focal consolidation to suggest pneumonia. Bilateral streaky opacities noted, compatible with subsegmental atelectasis. Pleural spaces: Unremarkable. No pleural effusion. No pneumothorax. Heart/Mediastinum: Unremarkable. No cardiomegaly. Bones/joints: Unremarkable. IMPRESSION: Near complete interval resolution of left lung base airspace disease.
[2021-09-19 06:37] LABS: Anion Gap 6.5 mEq/L (5-15); Blood Urea Nitrogen 6 mg/dl (7-17); Calcium 8.8 mg/dl (8.4-10.2); Carbon Dioxide 34 mmol/L (22.0-30.0); Chloride 105 mmol/L (98-107); Creatinine Clearance Estimated 71 mL/min (50-200); Estimated Glomerular Filt Rate 122 ml/min (>60); GFR (African American) 147 ML/MIN (>60); Glucose 104 mg/dl (74-100); Potassium 3.5 mmoL/L (3.5-5.1); Sodium 142 mmol/L (136-145)
[2021-09-19 06:48] LABS: Basophils % 0.3 % (0.1-2.0); Eosinophils # 0.1 K/mm3 (0.0-0.4); Eosinophils % 0.5 % (0.1-12.0); Hematocrit 39.5 % (37.0-47.0); Hemoglobin 12.6 g/dL (12.2-16.2); Lymphocytes # 2.9 K/mm3 (0.7-4.5); Lymphocytes % 27.4 % (10-50); Mean Corpuscular Hemoglobin 28.7 pg (27.0-31.2); Mean Corpuscular Volume 89.6 fl (81-99); Mean Platelet Volume 7.5 fl (7.4-10.4); Monocytes # 0.9 K/mm3 (0.1-1.0); Monocytes % 8.2 % (1.7-9.3); Neutrophils # 6.7 K/mm3 (1.8-7.8); Neutrophils % 63.6 % (37.0-80.0); Platelet Count 327 K/mm3 (142-424); Red Blood Count 4.41 M/mm3 (4.20-5.40); Red Cell Distribution Width 14.1 % (11.5-17.5); White Blood Count 10.5 K/mm3 (4.8-10.8)
--- NOTE | 2021-09-19 14:19 | HMH.ACPN2 ---
Internal Medicine - PN: Subj *Date: 09/19/21 *Time: 08:15 Interval history: pt laying in bed states she feels well. discussed with pt the importance of diet compliance and the need for rehab to build strength. pt interested in [facility] Exam Vital signs and Labs for Last 24 Hours: Temp Pulse Resp BP Pulse Ox 98.9 F 60 16 149/55 H 94 L 09/19/21 11:07 09/19/21 11:10 09/19/21 11:07 09/19/21 11:07 09/19/21 11:10 Laboratory Results - last 24 hr 09/19/21 05:48: WBC 10.5, RBC 4.41, Hgb 12.6, Hct 39.5, MCV 89.6, MCH 28.7, MCHC 32.0, RDW 14.1, Plt Count 327, MPV 7.5, Neut % (Auto) 63.6, Lymph % (Auto) 27.4, [place] % (Auto) 8.2, Eos % (Auto) 0.5, Baso % (Auto) 0.3, Neut # (Auto) 6.7, Lymph # (Auto) 2.9, [place] # (Auto) 0.9, Eos # (Auto) 0.1, Baso # (Auto) 0.0 09/19/21 05:48: Sodium 142, Potassium 3.5, Chloride 105, Carbon Dioxide 34 H, Anion Gap 6.5, BUN 6 L, Creatinine 0.50 L, Estimated Creat Clear 71, Estimated GFR 122, Est GFR ( Amer) 147, Glucose 104 H, Calcium 8.8 I & O for Last 24 hours: Intake & Output 09/17/21 09/18/21 09/19/21 09/20/21 11:59 11:59 11:59 11:59 Intake Total 870 / 870 480 / 480 4714 / 4714 120 / 120 Output Total 5200 / 5200 1050 / 2450 5800 / 5800 Balance -4330 / -4330 -570 / -1970 -1086 / -1086 120 / 120 Weight 191 lb 12.835 oz 191 lb 12.835 oz 191 lb 12.835 oz - Constitutional no acute distress, chronically ill appearing - *Routine HEENT Exam Head: Present: normocephalic Eye: Present: PERRL ENT: Present: mucous membranes moist - *Routine Neck Exam Present: supple. Absent: lymphadenopathy - *Routine Respiratory Exam Present: CTA bilaterally - *Routine Cardiovascular Exam Present: RRR - *Routine Abdominal Exam Present: soft, normoactive bowel sounds. Absent: tenderness - *Routine Exam Comments: gonsalez at bedside - *Routine Extremities Exam Absent: cyanosis, clubbing, edema - *Routine Skin Exam Present: warm. Absent: rash - *Routine Neurological Exam Present: alert, oriented X3 Assessment and Plan (1) Cough Status: Acute Category: Medical Code(s): R05 - Cough (2) Tobacco abuse Status: Chronic Category: Medical Code(s): Z72.0 - Tobacco use (3) COPD (chronic obstructive pulmonary disease) Status: Chronic Qualifiers: COPD type: unspecified COPD Qualified Code(s): J44.9 - Chronic obstructive pulmonary disease, unspecified Category: Medical Code(s): J44.9 - Chronic obstructive pulmonary disease, unspecified (4) Generalized anxiety disorder Status: Chronic Category: Medical Code(s): F41.1 - Generalized anxiety disorder (5) Pneumonia Status: Acute Qualifiers: Pneumonia type: due to unspecified organism Laterality: unspecified laterality Lung location: unspecified part of lung Qualified Code(s): J18.9 - Pneumonia, unspecified organism Category: Medical Code(s): J18.9 - Pneumonia, unspecified organism (6) UTI (urinary tract infection) Status: Acute Qualifiers: Urinary tract infection type: site unspecified Hematuria presence: without hematuria Qualified Code(s): N39.0 - Urinary tract infection, site not specified Category: Medical Code(s): N39.0 - Urinary tract infection, site not specified (7) Abdominal pain Status: Acute Qualifiers: Abdominal location: generalized Qualified Code(s): R10.84 - Generalized abdominal pain Category: Medical Code(s): R10.9 - Unspecified abdominal pain (8) Emphysematous cystitis Status: Acute Category: Medical Code(s): N30.80 - Other cystitis without hematuria (9) Obesity (BMI 30-39.9) Status: Acute Category: Medical Code(s): E66.9 - Obesity, unspecified (10) Colon, diverticulosis Status: Acute Category: Medical Code(s): K57.30 - Diverticulosis of large intestine without perforation or abscess without bleeding (11) Acquired hypothyroidism Status: Chronic Category: Medical Code(s): E03.9 - Hypothyroidi
--- NOTE | 2021-09-19 14:21 | DIET.NUTRFU ---
Nutritional consult received, see Nutritional Assessment, IP completed 09/17 for full assessment. Pt provided diet edu for dysphagia diet and adequate intakes with dysphagia. She is very unhappy with this diet but understands importance and states she will follow recommendations for now. Pt to dc to [facility]. PO intakes 25% + BID supplements.
--- NOTE | 2021-09-19 16:13 | HMH.DCSUM ---
General - General Admission date:: 09/13/21 Discharge date: 09/19/21 HPI HPI: 70-year-old female patient presented to the [facility] emergency department via EMS for reports of bilateral lower abdominal pain, lower back pain, dysuria, urinary urgency/frequency, nonproductive cough, and headache for 4 days. She reports she has not felt well for 4 days and has had low-grade fevers around 99 degrees. She denies nausea/vomiting/diarrhea or chills/body aches. She reports she never leaves the house and has no known exposure to Covid and has not received the Covid vaccine. She does report testing positive for Covid a year or so ago and states but I did not have it, unable to clarify statement The emergency department white blood cell count was 19 0 BMP was nonactionable Urine was 4+ bacteria and trace leukocytes She did receive ceftriaxone and azithromycin IV in the emergency department 09/12/21 CXR: FINDINGS: Lungs: Subtle interstitial haziness could reflect interstitial pneumonia. Granulomatous change. No consolidation. Pleural spaces: Unremarkable. No pleural effusion. No pneumothorax. Heart/Mediastinum: Unremarkable. No cardiomegaly. Bones/joints: Unremarkable. IMPRESSION: Subtle interstitial haziness could reflect interstitial pneumonia. Electronically signed by Oliver Traylor MD 09/12/21 Abd/PelvisCT: FINDINGS: Liver: Normal. No mass. Gallbladder and bile ducts: Large gallstone. Pancreas: Normal. No ductal dilation. Spleen: Normal. No splenomegaly. Adrenal glands: Normal. No mass. Kidneys and ureters: Normal. No hydronephrosis. Stomach and bowel: Constipation. No colitis. No small bowel obstruction. Appendix: No evidence of appendicitis. Intraperitoneal space: Unremarkable. No free air. No significant fluid collection. Vasculature: Unremarkable. No abdominal aortic aneurysm. Lymph nodes: Unremarkable. No enlarged lymph nodes. Urinary bladder: Emphysematous cystitis with gas in the wall of the urinary bladder. There is gas that is also localized extraluminal to the bladder. Reproductive: Hysterectomy. Bones/joints: Unremarkable. No acute fracture. Soft tissues: Unremarkable. IMPRESSION: Findings concerning for severe emphysematous cystitis with perforation. Addendum Dictated By: Oliver Traylor MD 70-year-old female patient sitting up in bed resting quietly she reports she is feeling better today with less abdominal pain and less lower back pain. Hospital Course Hospital Course: Laboratory Tests 09/12/21 09/12/21 09/12/21 18:28 18:28 18:28 WBC 19.0 H RBC 5.56 H Hgb 16.5 H Hct 50.7 H MCV 91.2 MCH 29.7 MCHC 32.5 RDW 14.3 Plt Count 409 MPV 7.9 Neut % (Auto) 73.3 Lymph % (Auto) 19.6 [place] % (Auto) 5.7 Eos % (Auto) 0.9 Baso % (Auto) 0.6 Neut # (Auto) 13.9 H Lymph # (Auto) 3.7 [place] # (Auto) 1.1 H Eos # (Auto) 0.2 Baso # (Auto) 0.1 Total Counted 100 Neutrophils % (Manual) 69 Lymphocytes % (Manual) 22 Monocytes % (Manual) 9 Eosinophils % (Manual) Platelet Estimate Normal RBC Morphology Not Reportable Hypochromasia Anisocytosis Macrocytosis Sodium 143 Potassium 3.7 Chloride 102 Carbon Dioxide 32 H Anion Gap 12.7 BUN 9 Creatinine 0.60 Estimated Creat Clear 74 Estimated GFR 99 Est GFR ( Amer) 119 Glucose 111 H Lactate Calcium 9.7 Total Bilirubin 0.4 AST 22 ALT 13 Alkaline Phosphatase 112 Troponin I < 0.01 Total Protein 7.7 Albumin 4.5 Globulin 3.2 Albumin/Globulin Ratio 1.4 Amylase 57 Lipase 40 Urine Color Urine Appearance Urine pH Ur Specific [place] Urine Protein Urine Glucose (UA) Urine Ketones Urine Blood Urine Nitrate Urine Bilirubin Urine Urobilinogen Ur Leukocyte Esterase Urine RBC Ur
[2021-09-19 17:16] LABS: Coronavirus 19, PCR Not Detected (NotDetected); Influenza A, PCR Not Detected (NotDetected); Influenza B, PCR Not Detected (NotDetected)
--- NOTE | 2021-09-19 18:03 | PC.NURSE ---
Attempted to call report to [facility] @ [phone], no answer at this time.
--- NOTE | 2021-09-19 18:24 | PC.NURSE ---
Report called to Brittney ([facility]) @ [phone]. Awaiting covid swab results
--- NOTE | 2021-09-19 19:33 | PC.NURSE ---
Called [facility] for transport. Ambulance is out of [facility] and it will be a couple hours before they arrive.
--- NOTE | 2021-09-19 19:35 | PC.NURSE ---
Spoke with Maude at [facility] and notified that patient should be next to transfer after ambulance returns from [place].
--- NOTE | 2021-09-19 22:10 | PC.NURSE ---
PT WAS D/C AT 2210
--- NOTE | 2021-09-19 22:25 | PC.NURSE ---
called [facility] and gave report to nurse regarding meds given to pt prior to discharge and time of departure at 1253
== END 2021-09-19 22:11 | disposition short-term general hospital (02) | DRG 177 ==
LOC: ER 20:11 → 2ND 20:29
PROVIDERS: Emergency Medicine; Nurse Practitioner Family; Admitting Provider Internal Medicine Adolescent Medicine; Emergency Provider Emergency Medicine; PCP Emergency Medicine; Visit Provider Emergency Medicine
DX: J69.0 Pneumonitis due to inhalation of food and vomit (principal); J96.21 Acute and chronic respiratory failure with hypoxia; J44.0 Chronic obstructive pulmonary disease with (acute) lower respiratory infection; J44.1 Chronic obstructive pulmonary disease with (acute) exacerbation; K63.2 Fistula of intestine; E03.9 Hypothyroidism, unspecified; I25.10 Atherosclerotic heart disease of native coronary artery without angina pectoris; E78.5 Hyperlipidemia, unspecified; I10 Essential (primary) hypertension; F17.210 Nicotine dependence, cigarettes, uncomplicated; F41.9 Anxiety disorder, unspecified; N30.80 Other cystitis without hematuria; E66.9 Obesity, unspecified; Z68.30 Body mass index [BMI] 30.0-30.9, adult; E87.6 Hypokalemia; B96.20 Unspecified Escherichia coli [E. coli] as the cause of diseases classified elsewhere
CPT/HCPCS: 36415; 70371; 71045; 74177; 80048; 80053; 80170; 81001; 82150; 83605; 83690; 84484; 85007; 85025; 87040; 87070; 87086; 87088; 87186; 87205; 92526; 92610; 92611; 93005; 94640; 94761; 96365; 96366; 96375; 97110; 97116; 97162; 97166; 97530; 99284; C9803; G0378; J0456; J1956; Q9958; Q9967; U0003; U0005

== ENCOUNTER → 2021-09-28 09:24 | Outpatient (CLI) | payer MEDICARE, BC, SELFPAY ==
--- NOTE | 2021-09-28 09:29 | CT_ITS ---
PROCEDURE INFORMATION: Exam: CT Chest Without Contrast; Diagnostic Exam date and time: 09/28/2021 9:29 AM Age: 70 years old Clinical indication: Abnormal findings; Abnormal radiologic exam of lung or chest; Patient HX: Follow up lung nodule; Additional info: Lung nodules TECHNIQUE: Imaging protocol: Diagnostic computed tomography of the chest without contrast. Radiation optimization: All CT scans at this facility use at least one of these dose optimization techniques: automated exposure control; mA and/or kV adjustment per patient size (includes targeted exams where dose is matched to clinical indication); or iterative reconstruction. COMPARISON: CT CHEST WO CON 11/02/2019 9:31 AM FINDINGS: Lungs: There is a spiculated nodule within the peripheral aspect of the right upper lobe which currently measures 8 mm in size. It is stable in appearance when compared with prior examination. Series 3, image 21. There is a spiculated nodule present within the right upper lobe inferior and medial to the 1st. It currently measures 13 mm in size and is unchanged. Series 3, image 22. There is an 8 mm amorphous nodule within the superior segment of the right lower lobe. It is stable. Series 3, image 30. There is a 9 mm amorphous nodule present within the right middle lobe. It is stable. Series 3, image 49. Small there is a small area of subpleural nodularity noted along the medial aspect of the left upper lobe. This appears new when compared with prior examination. It measures 11 mm in diameter. Series 3, image 13. Spherical area of non solid nodularity subpleural aspect left lower lobe measuring 1.8 cm. Series 3, image 41. An area of nodularity within the left upper lobe on prior examination is currently no longer identified. Pleural spaces: Unremarkable. No pneumothorax. No pleural effusion. Heart: Unremarkable. No cardiomegaly. No pericardial effusion. Coronary arteries: No evidence of coronary artery calcification. Mediastinal space: No evidence of mediastinal or hilar mass. Aorta: Arterial atheromatous calcifications are noted. No aortic aneurysm. Lymph nodes: Unremarkable. No enlarged lymph nodes. Bones/joints: Unremarkable. No acute fracture. Soft tissues: There is a calcified gallstone present within the gallbladder. Similar findings noted on prior examination. Other findings: Minimal areas of scarring noted within right anterior and posterior costophrenic sulcus. IMPRESSION: 1. Two new nodules are identified within the left lung since prior examination. There has been resolution of a nodule which was seen within the left lung since prior examination. 2. Nodules within the right lung are essentially stable. 3. Cholelithiasis. Recommend CT Chest at 3-6 months. Subsequent management based on the most suspicious nodule(s). (Reference: Mauricio) References: Mauricio Robert, et al. Guidelines for Management of Incidental Pulmonary Nodules Detected on CT Images: From the Fleischner Society 2017. Radiology. 2017;284(1):228-243.
== END ==
PROVIDERS: PCP Emergency Medicine; Visit Provider Physician Assistant
DX: R91.8 Other nonspecific abnormal finding of lung field (principal)
CPT/HCPCS: 71260; Q9967

== ENCOUNTER 2022-01-16 04:59 | Observation (INO) | payer MEDICARE, OTHER, SELFPAY ==
[2022-01-16] VITALS (18 sets, daily range): BP systolic 108–131; BP diastolic 50–73; PULSE 57–112; RESP 16–28; TEMP 36.3–38.2; O2SAT 22–99; BMI 30.9; BMI 34.2
--- NOTE | 2022-01-16 05:15 | ECG_ITS ---
APPROVED REPORT Exam: Resting ECG HR:112 bpm ECG Measurements Heart Rate 112 AXES FL 141 P 54 QRSd 89 QRS 72 QT 316 T 56 QTc 382 Conclusion SINUS TACHYCARDIA ABNORMAL RHYTHM ECG UNCONFIRMED REPORT Electronically signed by : Janes Delgado MD 01/16/2022 17:50:10
--- NOTE | 2022-01-16 05:16 | XR_ITS ---
PROCEDURE INFORMATION: Exam: XR Chest Exam date and time: 01/16/2022 5:16 AM Age: 71 years old Clinical indication: Shortness of breath; Additional info: Short of breath TECHNIQUE: Imaging protocol: XR of the chest. Views: 1 view. COMPARISON: CT CHEST W CON 09/28/2021 9:46 AM FINDINGS: Lungs: No focal airspace disease. Stable right upper lobe nodules, evaluated on prior CT. Pleural spaces: Unremarkable. No pleural effusion. No pneumothorax. Heart/Mediastinum: Cardiomediastinal silhouette is within normal limits. Bones/joints: Unremarkable. IMPRESSION: No acute cardiopulmonary abnormality.
[2022-01-16 05:31] LABS: Basophils # 0.1 K/mm3 (0-0.2); Basophils % 0.6 % (0.1-2.0); Eosinophils # 0.2 K/mm3 (0.0-0.4); Hematocrit 48.9 % (37.0-47.0); Hemoglobin 15.2 g/dL (12.2-16.2); Lymphocytes # 2.1 K/mm3 (0.7-4.5); Lymphocytes % 10.7 % (10-50); Mean Corpuscular HGB Conc 31.2 g/dL (31.8-35.4); Mean Corpuscular Hemoglobin 28.8 pg (27.0-31.2); Mean Corpuscular Volume 92.4 fl (81-99); Mean Platelet Volume 8.1 fl (7.4-10.4); Monocytes # 0.7 K/mm3 (0.1-1.0); Monocytes % 3.6 % (1.7-9.3); Neutrophils # 16.5 K/mm3 (1.8-7.8); Neutrophils % 84.1 % (37.0-80.0); Platelet Count 288 K/mm3 (142-424); Red Blood Count 5.29 M/mm3 (4.20-5.40); Red Cell Distribution Width 14.9 % (11.5-17.5); White Blood Count 19.6 K/mm3 (4.8-10.8)
[2022-01-16 05:34] LABS: MANUAL DIFFERENTIAL MANUAL DIFFERENTIAL (MANUAL DIFF)
[2022-01-16 05:39] LABS: Alanine Aminotransferase 20 U/L (12-78); Albumin Level 4.3 g/dl (3.5-5.0); Albumin/Globulin Ratio 1.7 (1.1-1.8); Alkaline Phosphatase 90 U/L (38-126); Anion Gap 10.1 mEq/L (5-15); Aspartate Amino Transferase 25 U/L (14-36); Bilirubin,Total 0.3 mg/dl (0.2-1.3); Blood Urea Nitrogen 11 mg/dl (7-17); Carbon Dioxide 34 mmol/L (22.0-30.0); Chloride 103 mmol/L (98-107); Estimated Glomerular Filt Rate 98 ml/min (>60); GFR (African American) 119 ML/MIN (>60); Globulin 2.6 g/dL (1.3-3.2); Glucose 130 mg/dl (74-100); Potassium 4.1 mmoL/L (3.5-5.1); Sodium 143 mmol/L (136-145); Total Protein,Serum 6.9 g/dl (6.3-8.2)
[2022-01-16 05:42] LABS: VBG Base Excess 2.8 mmol/L (-2.4-2.3); VBG HCO3 30.9 mmol/L (23-30); VBG Oxygen Saturation 71.2 % (50-70); VBG PO2 41.7 mmol/L (28-40); VBG Total CO2 33.4 mmol/L (23-27)
[2022-01-16 05:46] LABS: Lactic Acid 1.5 mmol/L (0.7-2.1)
[2022-01-16 05:46] LABS: VBG PCO2 81.9 mmol/L (35-51)
[2022-01-16 05:48] LABS: NT Pro Brain Natriuretic Pep. 24.5 pg/mL (0-125)
--- NOTE | 2022-01-16 05:49 | HMH.EDGENADL ---
ED Disposition Clinical Impression: COPD exacerbation Sepsis Qualifiers: Sepsis type: sepsis due to unspecified organism Sepsis acute organ dysfunction status: without acute organ dysfunction Qualified Code(s): A41.9 - Sepsis, unspecified organism Pneumonia Qualifiers: Pneumonia type: due to unspecified organism Laterality: right Lung location: middle lobe of lung Qualified Code(s): J18.9 - Pneumonia, unspecified organism Disposition: Admitted As Inpatient Condition on Discharge: Serious Referrals: Mark Mcclain MD [Primary Care Provider] - Time of Disposition: 06:51 - Critical Care Critical Care Time: Yes Attestation: On 01/16/22, the high probability of a clinically significant, sudden or life threatening deterioration of the following system(s) required my full and direct attention, intervention and personal management. The time I documented below is in addition to time spent performing reported procedures but includes the following listed in this critical care notation. Total Critical Care Time: 30 Vital system(s) involved:: Circulatory Failure, Respiratory Failure My critical care processes included: Assessment & monitoring of V/S, Initial and Re-exams, Data Review/Interpretation, Coordinating Care Medical Decision Making - Medical Records Medical records reviewed: Yes: I reviewed the patient's medical records. - Alex Inquiry Pt receiving controlled substance: No Vital Signs: 01/16/22 04:59 01/16/22 05:31 01/16/22 06:00 Temperature 100.8 F H Temperature Source Rectal Pulse Rate 112 H 100 H Pulse Rate [Right] 107 H Respiratory Rate 26 H 24 22 Blood Pressure 110/56 L 120/50 L Blood Pressure [Right Arm] 110/56 L Blood Pressure Mean 74 76 Blood Pressure Mean [Right Arm] 74 02 Sat by Pulse Oximetry 99 95 94 L Oxygen Delivery Method Non-Rebreather BiPAP BiPAP 01/16/22 06:30 Temperature Temperature Source Pulse Rate 105 H Pulse Rate [Right] Respiratory Rate 22 Blood Pressure 108/56 L Blood Pressure [Right Arm] Blood Pressure Mean 82 Blood Pressure Mean [Right Arm] 02 Sat by Pulse Oximetry 95 Oxygen Delivery Method BiPAP - Lab Data Lab Results 01/16/22 05:16: VBG pH 7.20 L, VBG pCO2 81.9 H, VBG pO2 41.7 H, VBG HCO3 30.9 H, VBG Total CO2 33.4 H, VBG O2 Saturation 71.2 H, VBG Base Excess 2.8 H 01/16/22 05:22: WBC 19.6 H, RBC 5.29, Hgb 15.2, Hct 48.9 H, MCV 92.4, MCH 28.8, MCHC 31.2 L, RDW 14.9, Plt Count 288, MPV 8.1, Neut % (Auto) 84.1 H, Lymph % (Auto) 10.7, [place] % (Auto) 3.6, Eos % (Auto) 1.0, Baso % (Auto) 0.6, Neut # (Auto) 16.5 H, Lymph # (Auto) 2.1, [place] # (Auto) 0.7, Eos # (Auto) 0.2, Baso # (Auto) 0.1, Total Counted 100, Neutrophils % (Manual) 87 H, Lymphocytes % (Manual) 11, Monocytes % (Manual) 2, Platelet Estimate Clumped, Rouleaux 1+ 01/16/22 05:22: Sodium 143, Potassium 4.1, Chloride 103, Carbon Dioxide 34 H, Anion Gap 10.1, BUN 11, Creatinine 0.60, Estimated GFR 98, Est GFR ( Amer) 119, Glucose 130 H, Calcium 9.0, Total Bilirubin 0.3, AST 25, ALT 20, Alkaline Phosphatase 90, NT-Pro-B Natriuret Pep 24.5, Total Protein 6.9, Albumin 4.3, Globulin 2.6, Albumin/Globulin Ratio 1.7 01/16/22 05:22: Lactate 1.5 01/16/22 05:22: SARS-CoV-2 (PCR) Not detected, Influenza A Untype (PCR) Not detected, Influenza Type B (PCR) Not detected Result diagrams: 01/16/22 05:22 01/16/22 05:22 Orders (Tests/Meds): ED MEDICATIONS Generic Name Dose Route Start Last Admin Trade Name Freq PRN Reason Stop Dose Admin Ceftriaxone Sodium 1 gm/ 50 mls @ 100 mls/hr 01/16/22 05:45 01/16/22 05:39 Sodium Chloride IV 01/30/22 05:44 100 mls/hr Q24H DANETTE Administration Azithromycin 500 mg/ Sodium 250 mls @ 250 mls/hr 01/16/22 05:45 01/16/22 05:40 Chloride IV 01/30/22 05:44 250 mls/hr Q24H DANETTE Administration Sodium Chloride 1,000 mls @ 250 mls/hr 01/16/22 06:00 01/16/22 06:46 Sod Chlor 0.9% 1000ml Bag IV 02/15/22 05:59 250 mls/hr .Q4H DANETTE Administratio
[2022-01-16 05:50] LABS: Coronavirus 19, PCR Not Detected (NotDetected); Influenza A, PCR Not Detected (NotDetected); Influenza B, PCR Not Detected (NotDetected)
--- NOTE | 2022-01-16 05:57 | PC.NURSE ---
Respiratory @ bedside placing pt on BIPAP @ this time
[2022-01-16 06:15] LABS: Lymphocytes % 11 % (10-50); Monocytes % 2 % (2-9); Neutrophils % 87 % (42-76); Total Cells Counted 100
[2022-01-16 06:20] LABS: Platelet Estimate Clumped; Rouleaux 1+
--- NOTE | 2022-01-16 07:19 | PC.NURSE ---
Dr. Johny mijares for ED MD
--- NOTE | 2022-01-16 07:50 | PC.NURSE ---
notified care management of admission
--- NOTE | 2022-01-16 08:09 | PC.NURSE ---
Dr. Mcclain at
--- NOTE | 2022-01-16 08:19 | PC.NURSE ---
REPORT CALLED TO FLOOR
[2022-01-16 08:26] LABS: ABG Base Excess -1.6 mmol/L (-2.4-2.3); ABG HCO3 25.7 mmhg (22.0-26.0); ABG Oxygen Saturation 97 % (90-100); ABG PH 7.25 mmol/L (7.35-7.45); ABG PO2 104.2 mmhg (80-100); ABG TCO2 27.5 mmhg (23-27)
[2022-01-16 08:28] LABS: Allen's Test Acceptable; Oxygen 75% %; PEEP 14/8; Source Right Radial; Vent Rate 20
[2022-01-16 08:29] LABS: ABG PCO2 60.3 mmhg (35.0-45.0)
--- NOTE | 2022-01-16 09:40 | HMH.HP ---
*Admission Date: 01/16/22 *Chief complaint: Shortness of Breath *History of present illness: 71-year-old female presenting to the emergency department with shortness of breath. Symptoms got worse tonight when she was trying to sleep. She felt like she could not breathe or get enough air. Was coughing. When EMS arrived she was wearing nasal cannula, but there was no oxygen flowing. Patient usually uses 2 L all of the time. Her initial oxygen saturation was 78%. They placed her on supplemental nasal cannula and transported to the emergency department. She was given a DuoNeb in route. She has a history of COPD. Continues to smoke tobacco. Says she is had pneumonia on and off for the last year. Is not currently on steroids or antibiotics. Denies chest pain, abdominal pain. No known Covid exposure. No fevers or chills. She lives with her adult son (Per Sushma Thibodeaux MD). CXR: FINDINGS: Lungs: No focal airspace disease. Stable right upper lobe nodules, evaluated on prior CT. Pleural spaces: Unremarkable. No pleural effusion. No pneumothorax. Heart/Mediastinum: Cardiomediastinal silhouette is within normal limits. Bones/joints: Unremarkable. IMPRESSION: No acute cardiopulmonary abnormality. Electronically signed by Cristiana Leo MD In the ED she received Solu-Medrol 125mg, Ceftriaxone 1 gm, Azithromycin 500mg IV and was placed on BiPap [facility] History I have reviewed the patient's past medical history: Yes Medical History: Reports:: Anxiety, Asthma, Atherosclerotic Heart Disease, Chronic Obstructive Pulmonary Disease (COPD), Coronary Artery Disease, Diabetes Mellitus Type 2, Hyperlipidemia, Hypertension, Migraine, Urinary Tract Infection Denies:: Cancer, Diabetes Mellitus Type 1, Internal Pacemaker, MRSA *Have you ever received a pneumonia vaccine?: (unknown) *Have you received a flu vaccine this season?: (unknown) Other Medical History: Reports: Arthritis, Cataracts, Hoarseness, Hormone Therapy, Hypothyroidism, Sinus Problems, Thyroid Disease Laterality Cases: Left: Lumpectomy Other Surgeries: Yes: No Previous Surgery, Cancer Surgery, Cardiac Catheterization, Colonoscopy, Hysterectomy-Total. No: Pacemaker Amputation: No Fractures: Yes (foot) - *Social History Last grade of school completed: High school graduate Smoking Status: Current every day smoker Tobacco Type: cigarettes # Packs/Day (cigarettes): 1 Alcohol Intake: never Alcohol Intake Frequency:: 3 or more drinks per day Substance Use Type: denies use Last Used Substance: unknown *Occupational Status:: retired Housing: alf Household Members: none *Travel in the last 8 weeks: None - Psychiatric History Pschychiatric History:: Reports:: Anxiety Family Hx:: Asthma, Cancer, Diabetes, Hyperlipidemia, Hypertension, Stroke Review of Systems - Review of Systems Review of systems:: pertinent systems reviewed and negative unless documented below Patient very lethargic, on BiPap, most information obtained through chart - *Cardiovascular Reports shortness of breath, Reports shortness of breath with activity, Denies chest pain, Denies chest pain at rest - *Respiratory Reports cough, Reports shortness of breath, Reports shortness of breath with activity, Denies change in phlegm color - *Gastrointestinal Denies abdominal pain, Denies change in bowel habits, Denies loose stools - *Neurologic Denies headache(s), Denies loss of vision, Denies numbness, Denies tingling, Denies weakness Meds Home Medications Medication Instructions Recorded Confirmed Type Aspirin [Low Dose Aspirin EC] 81 mg PO DAILY 09/12/21 01/16/22 History Cariprazine HCl [Vraylar] 1.5 mg PO DAILY 09/12/21 01/16/22 History Cholecalciferol (Vitamin D3) 25 mcg PO DAILY 09/12/21 01/16/22 History [Vitamin D3 1,000 Unit Cap] Ergocalciferol (Vitamin D2) 1,250 mcg PO WEEKLY 09/12/21 01/16/22 History [Drisdol] Escitalopram Oxalate 20 mg PO DAILY 09/12/21
--- NOTE | 2022-01-16 10:42 | HMH.PHAINT ---
Home med rec complete
[2022-01-16 12:20] LABS: ABG HCO3 28.1 mmhg (22.0-26.0); ABG Oxygen Saturation 92 % (90-100); ABG PH 7.25 mmol/L (7.35-7.45); ABG PO2 66.6 mmhg (80-100); ABG TCO2 30.1 mmhg (23-27)
[2022-01-16 12:25] LABS: Allen's Test Patient Unable; Oxygen 40% %; PEEP 18/10; Source Right Radial; Vent Rate 20
--- NOTE | 2022-01-16 12:32 | PC.NURSE ---
Called and spoke with Mai in Dr. viera office and made her aware of 1200 abg results. Pt continues to be on bipap at this time.
--- NOTE | 2022-01-16 12:32 | HMH.PULMCON ---
*Admission Date: 01/16/22 *Reason for consult:: Acute hypoxic hypercarbic respiratory failure *History of present illness: Patient altered and lethargic and much of the history is obtained from chart review. Ms. Sommer is a 71-year-old female greater than [id number] smoking the cancer diagnoses: Triple inhaler therapy pulmonary nodule presented hospital worsening respiratory distress and found to be in hypoxic hypercarbic respiratory failure needing BiPAP therapy and pulmonary was called for further management [facility] History Medical History: Reports:: Anxiety, Asthma, Atherosclerotic Heart Disease, Chronic Obstructive Pulmonary Disease (COPD), Coronary Artery Disease, Diabetes Mellitus Type 2, Hyperlipidemia, Hypertension, Migraine, Urinary Tract Infection Denies:: Cancer, Diabetes Mellitus Type 1, Internal Pacemaker, MRSA *Have you ever received a pneumonia vaccine?: (unknown) *Have you received a flu vaccine this season?: (unknown) Other Medical History: Reports: Arthritis, Cataracts, Hoarseness, Hormone Therapy, Hypothyroidism, Sinus Problems, Thyroid Disease Laterality Cases: Left: Lumpectomy Other Surgeries: Yes: No Previous Surgery, Cancer Surgery, Cardiac Catheterization, Colonoscopy, Hysterectomy-Total. No: Pacemaker Amputation: No Fractures: Yes (foot) - *Social History Smoking Status: Smoker, status unknown Tobacco Type: cigarettes # Packs/Day (cigarettes): 1 Alcohol Intake: never Alcohol Intake Frequency:: 3 or more drinks per day Substance Use Type: denies use *Occupational Status:: other Housing: penitentiary Household Members: none *Travel in the last 8 weeks: None - Psychiatric History Pschychiatric History:: Reports:: Anxiety Family Hx:: Asthma, Cancer, Diabetes, Hyperlipidemia, Hypertension, Stroke ROS - Review of Systems Patient altered and lethargic. Limited review of systems. - Card Reports shortness of breath - Resp Respiratory: Reports shortness of breath, Reports chest congestion, Reports dyspnea on exertion, Reports cough with sputum production Meds Home Medications Medication Instructions Recorded Confirmed Type Aspirin [Low Dose Aspirin EC] 81 mg PO DAILY 09/12/21 01/16/22 History Cariprazine HCl [Vraylar] 1.5 mg PO DAILY 09/12/21 01/16/22 History Cholecalciferol (Vitamin D3) 25 mcg PO DAILY 09/12/21 01/16/22 History [Vitamin D3 1,000 Unit Cap] Ergocalciferol (Vitamin D2) 1,250 mcg PO WEEKLY 09/12/21 01/16/22 History [Drisdol] Escitalopram Oxalate 20 mg PO DAILY 09/12/21 01/16/22 History Omeprazole 20 mg PO DAILY 09/12/21 01/16/22 History Oxybutynin Chloride 5 mg PO DAILY 09/12/21 01/16/22 History Rosuvastatin Calcium 10 mg PO HS 09/12/21 01/16/22 History Tiotropium [place] [Spiriva 2 inh INHALATION DAILY 09/12/21 01/16/22 History Respimat] alprazolam 0.5 mg tablet 0.5 mg PO TID #90 tab 10/30/21 01/16/22 Rx gabapentin 800 mg tablet 800 mg PO TID #90 tab 10/30/21 01/16/22 Rx hydrocodone 5 mg-acetaminophen 325 1 tab PO TID #90 tab 10/30/21 01/16/22 Rx mg tablet Albuterol Sulfate [Albuterol 2 puffs INHALATION Q4H PRN 01/16/22 01/16/22 History Sulfate Hfa] Budesonide/Formoterol Fumarate 2 puffs INHALATION BID 01/16/22 01/16/22 History [Budesonide-Formoterol 160-4.5] Levothyroxine Sodium [Synthroid 50 mcg PO DAILY 01/16/22 01/16/22 History 50mcg (0.05mg) tab] Quetiapine Fumarate 300 mg PO HS 01/16/22 01/16/22 History Allergies Allergy/AdvReac Type Severity Reaction Status Date / Time metronidazole Allergy Unknown I-HIVES Verified 10/30/21 16:26 nitrofurantoin Allergy Unknown Unknown Verified 10/30/21 16:26 [From MACROBID] allergy reaction Exam - Constitutional Constitutional:: Absent: no acute distress, comfortable - HENMT Exam HENMT: Present: normocephalic, atraumatic - Eye Exam Eyes:: Present: normal appearance both eyes and related structures - Neck Exam Neck:: Present: normal visual inspection - Respiratory Exam Respiratory:: Pr
--- NOTE | 2022-01-16 13:20 | HMH.PHAVTE ---
[facility] Pharmacy VTE Monitoring - Patient Demographics Admission date: 01/16/22 Report Date: 01/16/22 Time: 13:20 Allergies/Adverse Reactions: Patient Allergies metronidazole Allergy (Unknown, Verified 10/30/21 16:26) I-HIVES nitrofurantoin [From MACROBID] Allergy (Unknown, Verified 10/30/21 16:26) Unknown allergy reaction Height: 1.6 m Weight: 87.713 kg Patient Problems: Current Active Problems Pneumonia (Acute) COPD exacerbation (Acute) Sepsis (Acute) - VTE Risk Labs: VTE Related Lab Results Hgb 15.2 g/dL (12.2-16.2) 01/16/22 05:22 Hct 48.9 % (37.0-47.0) H 01/16/22 05:22 Plt Count 288 K/mm3 (142-424) 01/16/22 05:22 BUN 11 mg/dl (7-17) 01/16/22 05:22 Creatinine 0.60 mg/dl (0.52-1.04) 01/16/22 05:22 - Prophylaxis VTE Prophylaxis Ordered?: Yes Types of VTE Prophylaxis: TEDS Knee High Location of Applied Device: Bilateral Lower Extremeties
--- NOTE | 2022-01-16 13:32 | DIET.NUTRFU ---
RD reviewed chart, previous admit in September 2021 patient had swallow study completed and was at high aspiration risk with recommendations of pureed with honey thick liquids. Did not see any documentation of a follow-up on this since. Patient currently on BiPap and with respiratory therapist unable to interview to review. Notified nurse and they will review when patient able. Patient lives with son currently, left a voicemail to review diet at home.
--- NOTE | 2022-01-16 13:40 | PC.NURSE ---
Hard to assess hx r/t pt's mentation, and use of bipap. Pt continues to be on bipap at this time.
--- NOTE | 2022-01-16 14:54 | PC.NURSE ---
patient resting on bipap. call light within reach
--- NOTE | 2022-01-16 15:23 | PC.NURSE ---
ST will eval pt when she is weaned down off bipap.
[2022-01-16 16:44] LABS: ABG Base Excess -1.1 mmol/L (-2.4-2.3); ABG HCO3 25.1 mmhg (22.0-26.0); ABG Oxygen Saturation 93 % (90-100); ABG PH 7.31 mmol/L (7.35-7.45); ABG PO2 64.5 mmhg (80-100); ABG TCO2 26.6 mmhg (23-27)
[2022-01-16 16:45] LABS: Oxygen 40 %; PEEP 10; Pressure Support 8; Vent Rate 26
[2022-01-16 16:46] LABS: Allen's Test Acceptable; Source Right Radial
[2022-01-16 16:47] LABS: ABG PCO2 50.6 mmhg (35.0-45.0)
--- NOTE | 2022-01-16 18:53 | PC.NURSE ---
Pt did cough after bs swallow eval, with sip of water. ST eval placed and is going to see pt again when weaned off bipap and able to do so. CB in reach.
--- NOTE | 2022-01-16 19:15 | PC.NURSE ---
Spoke with Dr. canseco this evening and received order for gonsalez insertion r/t pt not voiding since being to floor. 300 CC urine o/p at this time, continues to drain yellow urine to bedside drain.
[2022-01-16 19:57] LABS: Microscopic,Cath URINE MICROSCOPIC (MICROSCOPIC)
[2022-01-16 20:17] LABS: Appearance,Urine/Cath CLEAR (Clear); Bilirubin,Cath Negative (Negative); Blood, Urine/Cath Negative (Negative); Color,Urine/Cath YELLOW (Yellow); Glucose,Urine/Cath (UA) Negative (Negative); Ketones,Urine/Cath Negative (Negative); Leukocyte Esterase,Cath Negative (Negative); Nitrate,Cath Negative (Negative); Protein,Urine/Cath Negative (Negative); Specific Gravity, Urine/Cath 1.025 (1.005-1.030); Urobilinogen,Cath 0.2 EU/dl (0.2)
[2022-01-16 20:33] LABS: Bacteria,Urine/Cath TRACE /lpf
[2022-01-16 20:34] LABS: Amorphous Sediment,Ur/Cath Trace /lpf
[2022-01-17] VITALS (14 sets, daily range): BP systolic 128–187; BP diastolic 50–83; PULSE 55–98; RESP 17–27; TEMP 36.1–37.2; O2SAT 91–98; BMI 35.3
--- NOTE | 2022-01-17 05:51 | PC.NURSE ---
pt has been restless this shift, pulling at bipap mask and trying to take it off, pt educated on need for bipap, attempted to distract patient with television or music and pt refused both, O2 sats have remained 97-98%, pt made NPO on day shift pending speech eval, pt stated that at home there are certain foods that she cannot eat due to issues with swallowing
[2022-01-17 05:53] LABS: Basophils % 0.2 % (0.1-2.0); Eosinophils # 0.1 K/mm3 (0.0-0.4); Eosinophils % 0.3 % (0.1-12.0); Hematocrit 41.6 % (37.0-47.0); Hemoglobin 12.7 g/dL (12.2-16.2); Lymphocytes # 1.2 K/mm3 (0.7-4.5); Lymphocytes % 6.9 % (10-50); Mean Corpuscular HGB Conc 30.6 g/dL (31.8-35.4); Mean Corpuscular Hemoglobin 28.7 pg (27.0-31.2); Mean Corpuscular Volume 93.5 fl (81-99); Mean Platelet Volume 9.2 fl (7.4-10.4); Monocytes # 0.4 K/mm3 (0.1-1.0); Monocytes % 2.4 % (1.7-9.3); Neutrophils # 15.1 K/mm3 (1.8-7.8); Neutrophils % 90.3 % (37.0-80.0); Platelet Count 240 K/mm3 (142-424); Red Blood Count 4.45 M/mm3 (4.20-5.40); White Blood Count 16.8 K/mm3 (4.8-10.8)
[2022-01-17 05:58] LABS: MANUAL DIFFERENTIAL MANUAL DIFFERENTIAL (MANUAL DIFF)
[2022-01-17 05:59] LABS: Anion Gap 9.6 mEq/L (5-15); Blood Urea Nitrogen 15 mg/dl (7-17); Calcium 8.6 mg/dl (8.4-10.2); Carbon Dioxide 30 mmol/L (22.0-30.0); Chloride 108 mmol/L (98-107); Creatinine Clearance Estimated 73 mL/min (50-200); Estimated Glomerular Filt Rate 121 ml/min (>60); GFR (African American) 147 ML/MIN (>60); Glucose 117 mg/dl (74-100); Potassium 4.6 mmoL/L (3.5-5.1); Sodium 143 mmol/L (136-145)
--- NOTE | 2022-01-17 06:29 | PC.NURSE ---
0620 pt ripped bipap from face, pt reeducated on importance of wearing bipap, pt stated, she wasn't wearing the damn thing, respiratory called and stated to place on NC at this time, pt placed on NC, O2 sats at 90%
[2022-01-17 07:03] LABS: Lymphocytes % 8 % (10-50); Monocytes % 3 % (2-9); Neutrophils % 89 % (42-76); RBC Morphology Normal; Total Cells Counted 100
[2022-01-17 07:05] LABS: Platelet Estimate Normal
--- NOTE | 2022-01-17 09:23 | HMH.ACPN2 ---
Internal Medicine - PN: Subj *Date: 01/17/22 *Time: 10:45 Interval history: 1-year-old female patient sitting up in bed staff reports she pulled her BiPAP off this morning and refuses to wear. Current oxygenation status is 94% on 2 L per nasal cannula. Patient is alert following commands, is confused explained why patient is in hospital and why she cannot be discharged today. She verbalizes understanding Exam Vital signs and Labs for Last 24 Hours: Temp Pulse Resp BP Pulse Ox 98.1 F 74 17 128/56 L 94 L 01/17/22 07:28 01/17/22 07:28 01/17/22 07:28 01/17/22 07:28 01/17/22 07:28 Laboratory Results - last 24 hr 01/16/22 12:00: Specimen Source Right radial, O2 % 40%, ABG pH 7.25 L, ABG pCO2 65.0 H, ABG pO2 66.6 L, ABG HCO3 28.1 H, ABG Total CO2 30.1 H, ABG O2 Saturation 92, ABG Base Excess 1.0, Jose Test Patient unable, Vent Rate 20, PEEP 18/10 01/16/22 16:30: Specimen Source Right radial, O2 % 40, ABG pH 7.31 L, ABG pCO2 50.6 H, ABG pO2 64.5 L, ABG HCO3 25.1, ABG Total CO2 26.6, ABG O2 Saturation 93, ABG Base Excess -1.1, Jose Test Acceptable, Vent Rate 26, PEEP 10 01/16/22 19:10: Urine Color Yellow, Urine Appearance Clear, Urine pH 6.0, Ur Specific [place] 1.025, Urine Protein Negative, Urine Glucose (UA) Negative, Urine Ketones Negative, Urine Blood Negative, Urine Nitrate Negative, Urine Bilirubin Negative, Urine Urobilinogen 0.2, Ur Leukocyte Esterase Negative, Urine Bacteria Trace 01/17/22 05:23: WBC 16.8 H, RBC 4.45, Hgb 12.7, Hct 41.6, MCV 93.5, MCH 28.7, MCHC 30.6 L, RDW 15.0, Plt Count 240, MPV 9.2, Neut % (Auto) 90.3 H, Lymph % (Auto) 6.9 L, [place] % (Auto) 2.4, Eos % (Auto) 0.3, Baso % (Auto) 0.2, Neut # (Auto) 15.1 H, Lymph # (Auto) 1.2, [place] # (Auto) 0.4, Eos # (Auto) 0.1, Baso # (Auto) 0.0, Total Counted 100, Neutrophils % (Manual) 89 H, Lymphocytes % (Manual) 8 L, Monocytes % (Manual) 3, Differential Comment , Platelet Estimate Normal, RBC Morphology Normal 01/17/22 05:23: Sodium 143, Potassium 4.6, Chloride 108 H, Carbon Dioxide 30, Anion Gap 9.6, BUN 15 D, Creatinine 0.50 L, Estimated Creat Clear 73, Estimated GFR 121, Est GFR ( Amer) 147 D, Glucose 117 H, Calcium 8.6 I & O for Last 24 hours: Intake & Output 01/14/22 01/15/22 01/16/22 01/17/22 23:59 23:59 23:59 23:59 Intake Total 0 / 0 Output Total 300 / 300 450 / 450 Balance -300 / -300 -450 / -450 Weight 193 lb 6 oz 199 lb 6.4 oz - Constitutional no acute distress, chronically ill appearing - *Routine HEENT Exam Head: Present: normocephalic Eye: Present: EOMI ENT: Present: mucous membranes moist - *Routine Neck Exam Present: trachea midline. Absent: tracheal deviation - *Routine Respiratory Exam Present: wheezes. Absent: accessory muscle use - *Routine Cardiovascular Exam Present: RRR - *Routine Abdominal Exam Present: soft, normoactive bowel sounds. Absent: tenderness, firm - *Routine Extremities Exam Present: full ROM, pulses intact. Absent: cyanosis, clubbing - *Routine Skin Exam Present: intact, dry. Absent: cyanosis, erythema - *Routine Neurological Exam Present: alert, altered mental status - Routine Psychiatric Exam Present: unable to assess Assessment and Plan (1) Acute exacerbation of chronic obstructive airways disease Status: Acute Category: Medical Code(s): J44.1 - Chronic obstructive pulmonary disease with (acute) exacerbation (2) Tobacco dependence Status: Chronic Category: Medical Code(s): F17.200 - Nicotine dependence, unspecified, uncomplicated (3) Obesity (BMI 30-39.9) Status: Acute Category: Medical Code(s): E66.9 - Obesity, unspecified (4) Community acquired bacterial pneumonia Status: Acute Category: Medical Code(s): J15.9 - Unspecified bacterial pneumonia (5) Sepsis with acute organ dysfunction Status: Acute Category: Medical Code(s): A41.9 - Sepsis, unspecified organism; R65.20 - Severe sepsis without septic shock - Assessment and plan al
--- NOTE | 2022-01-17 10:29 | HMH.SLDYSPHA ---
Speech & Language Evaluation Speech/Language Dysphagia Evaluation Start: 01/17/22 10:18 Freq: ONCE Status: Active Protocol: Document 01/17/22 10:18 CRIS (Rec: 01/17/22 10:29 CRIS [id number]) Dysphagia Assess/Goals/Plan Assessment Date of Evaluation: 01/17/22 Evaluation Type Initial Certification Assessment/Problems Dysphagia eval Does Patient Qualify for Service No Qualify/Failure Comment Patient displays no overt signs of dysphagia at this time. Therapy services are not recommended. Recommendations PHYSICIAN CERTIFICATION: The specified therapy services are required, authorized, and reviewed every 30 days. Diet Recommendations Mechanical Soft Liquid Type Recommendations Normal/Thin SL Swallow Guidelines Standard Aspiration Prec. Dysphagia Swallow Precautions/Strategies Sitting Upright (90 deg),Small Bites and Sips,Alternate Liquids/Solids Comment Ms. Pascal did not display any overt signs of dysphagia at this time. Thin liquids and mech soft diet is recommended due to lack of dentition. Plan Pt/Guardian verbally ack understanding Yes of dx/prognosis/goals G -code Required No Speech & Language HPI Language Primary Language Divehi General Information General Current Food Consistancy NPO Dentition Poor Dentition Oxygen Status Nasal Cannula Facial Symmetry Symmetrical Patient Orientation Person,Place,Time Ability to Follow Directions Good Communication Ability No Impairment Dysphagia:Food Presentation Evaluation Food Type Pureed,Mechanical Soft,Liquid, Pudding Dysphagia Evaluation Summary Ms. Pascal was given the following consistencies; thins via open cup and straw, pudding, puree, and mech soft. Regular was not given due to lack of dentition. Ms. Pascal is not currently displaying any overt signs of dysphagia at this time. Stroke Dysphagia Assessment PHYSICIAN CERTIFICATION: I certify the specified therapy services for Naida Sommer are required, authorized, and reviewed every 30 days.
--- NOTE | 2022-01-17 11:20 | HMH.PULMPN ---
Internal Medicine - PN: Subj *Date: 01/17/22 *Time: 11:21 Interval history: No acute respiratory vents overnight. Patient admit significant improvement in symptoms. Wean off BiPAP. Exam - Constitutional Constitutional:: Present: no acute distress, comfortable - HENMT Exam HENMT: Present: normocephalic - Eye Exam Eyes:: Present: normal appearance both eyes and related structures - Neck Exam Neck:: Present: normal visual inspection - Respiratory Exam Respiratory:: Present: able to speak in complete sentences, no respiratory distress, decreased breath sounds. Absent: crackles, wheezing - Cardiovascular Exam Cardiac:: Present: S1, S2 - GI Exam GI:: Present: soft - Skin Exam Skin: Present: warm, no rash - Neurological Exam Neurological: Present: alert, awake - Extremities Exam Extremities: Present: no cyanosis, no clubbing Assessment and Plan (1) Acute exacerbation of chronic obstructive airways disease Status: Acute Category: Medical Code(s): J44.1 - Chronic obstructive pulmonary disease with (acute) exacerbation (2) Tobacco dependence Status: Chronic Category: Medical Code(s): F17.200 - Nicotine dependence, unspecified, uncomplicated (3) Obesity (BMI 30-39.9) Status: Acute Category: Medical Code(s): E66.9 - Obesity, unspecified (4) Community acquired bacterial pneumonia Status: Acute Category: Medical Code(s): J15.9 - Unspecified bacterial pneumonia (5) Sepsis with acute organ dysfunction Status: Acute Category: Medical Code(s): A41.9 - Sepsis, unspecified organism; R65.20 - Severe sepsis without septic shock - Assessment and plan all Dx Assessment and Plan for all problems:: #Acute on chronic hypoxic hypercarbic respiratory failure: #COPD Exacerbation : #Community-acquired pneumonia: 71-year-old H/o COPD on triple inhaler therapy. Last seen in pulmonary clinic in March 2021. Home inhaler therapy includes Symbicort and Spiriva. Presented with worsening respiratory distress found to be hypoxic hypercarbic respiratory failure. Chest X-ray on admission bilateral lower lobe predominant airspace disease right greater than left. Right hilar fullness noted. Patient needing BiPAP therapy for 24 hours, respiratory significantly improved, this morning weaned to nasal cannula 2 L. Saturations maintained at 90% and above. Patient more awake and alert and engaging in conversation today however she is not clear on what led to the events of her current hypercarbic respiratory failure. She admits compliance with her inhalers. Plan: -Continue nasal oxygen supplementation to maintain O2 saturation goal of 88 to 94%. -ContinueDuoNebs every 4 hours scheduled along with increased frequency of albuterol, RT informed. -Continue budesonide every 12 schedule. -Wean steroids to prednisone 40 mg daily for 5 days -Continue ceftriaxone & Azithromycin x 5 days #Multiple pulmonary nodules: Patient most recent CAT scan performed in July 2021 to follow-up on the lung nodules in October 2019 showed mostly stable but new infiltrate/nodules in the left upper lobe and left lower lobe that warrants a follow-up CT chest. Plan: -We will follow with CT chest without contrast with her next clinic visit Thank you for involving pulmonary in this patient care. We will continue to follow. We will also schedule an outpatient PFT, 6-minute walk testing and CT chest without contrast and follow in clinic in 4 to 6 weeks
--- NOTE | 2022-01-17 13:29 | SW/DCPLANNER ---
Addendum entered by Dinorah Reardon 01/18/22 09:39: The plan for this patient is to discharge home today. Patient has refused all at home services at this time. Original Note: Per patient during rounds this AM she intends on returning home with her son at time of discharge. PT evaluated this patient and stated that she could return home with supervision at time of discharge. I attempted to contact patients son (Frankie): no answer/VM left. Discharge date is unknown at this time.
--- NOTE | 2022-01-17 13:36 | HMH.PTEV ---
Physical Therapy Evaluation Rehab PT IP Evaluation Start: 01/17/22 11:17 Freq: ONCE Status: Active Protocol: Document 01/17/22 13:00 BLANKA (Rec: 01/17/22 13:35 BLANKA [id number]) Subjective/History History History 71-year-old female presenting to the emergency department with shortness of breath. Symptoms got worse tonight when she was trying to sleep. She felt like she could not breathe or get enough air. Was coughing. When EMS arrived she was wearing nasal cannula, but there was no oxygen flowing. Patient usually uses 2 L all of the time. Her initial oxygen saturation was 78%. They placed her on supplemental nasal cannula and transported to the emergency department. She was given a DuoNeb in route. She has a history of COPD. Continues to smoke tobacco. Says she is had pneumonia on and off for the last year. Is not currently on steroids or antibiotics. Denies chest pain, abdominal pain. No known Covid exposure . No fevers or chills. 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 [employer] Subjective Subjective Pt reprots she will participate w/ therapy Rehab PT IP Eval Objective Appearance Patient Behavior Appropriate,Cooperative Patient Orientation Place,Name,Birthday,Year Difficulty following instructions none Speech Pattern Clear,Appropriate Ambulation Patient Able to Ambulate Yes Ambulation Observation IP General Gait Pattern Observation Narrow Based Gait,Shuffling Step Ambulation Distance (feet) 10 Ambulation Assistive Device None Ambulation Ability Contact Guard/Hand Hold Balance Ability to Arise Able, uses arms to help Sitting Balance Steady, safe Standing Balance Steady, wide stance Dynamic Sitting Balance Ability Good Dynamic Standing Balance Ability Fair Transfers Bed Transfer Ability Independent Chair Transfer Ability Indep
--- NOTE | 2022-01-17 16:54 | PC.NURSE ---
pt has been slightly confused this shift. knows who she is and where she is, but pt imagines some details of the day that did not happen. lungs are diminished, bowels active. pt has been up to the chair for several hours this shift. nad noted. pt dislodged IV this am, new one started. will monitor pt condition.
[2022-01-18] VITALS (7 sets, daily range): BP systolic 130–164; BP diastolic 60–82; PULSE 45–79; RESP 16–20; TEMP 36.3–36.5; O2SAT 88–98; BMI 35.2
--- NOTE | 2022-01-18 06:37 | PC.NURSE ---
pt slept most of night, pt will not keep 02 on and takes it off frequently, noted sats 88% on room air, pt is alert and oriented to place, name, age, time, pt will be confused at times.
[2022-01-18 06:40] LABS: Basophils % 0.2 % (0.1-2.0); Eosinophils % 0.1 % (0.1-12.0); Hematocrit 40.4 % (37.0-47.0); Hemoglobin 12.6 g/dL (12.2-16.2); Lymphocytes # 1.5 K/mm3 (0.7-4.5); Lymphocytes % 9.6 % (10-50); Mean Corpuscular HGB Conc 31.2 g/dL (31.8-35.4); Mean Corpuscular Hemoglobin 28.3 pg (27.0-31.2); Mean Corpuscular Volume 90.8 fl (81-99); Mean Platelet Volume 8.3 fl (7.4-10.4); Monocytes # 0.8 K/mm3 (0.1-1.0); Monocytes % 5.2 % (1.7-9.3); Neutrophils # 13.6 K/mm3 (1.8-7.8); Platelet Count 280 K/mm3 (142-424); Red Blood Count 4.45 M/mm3 (4.20-5.40); Red Cell Distribution Width 15.3 % (11.5-17.5); White Blood Count 15.9 K/mm3 (4.8-10.8)
[2022-01-18 06:47] LABS: Anion Gap 7.7 mEq/L (5-15); Blood Urea Nitrogen 14 mg/dl (7-17); Calcium 8.4 mg/dl (8.4-10.2); Carbon Dioxide 27 mmol/L (22.0-30.0); Chloride 111 mmol/L (98-107); Creatinine Clearance Estimated 72 mL/min (50-200); Estimated Glomerular Filt Rate 121 ml/min (>60); GFR (African American) 147 ML/MIN (>60); Glucose 122 mg/dl (74-100); Potassium 3.7 mmoL/L (3.5-5.1); Sodium 142 mmol/L (136-145)
[2022-01-18 06:53] LABS: MANUAL DIFFERENTIAL MANUAL DIFFERENTIAL (MANUAL DIFF)
[2022-01-18 08:08] LABS: Lymphocytes % 10 % (10-50); Monocytes % 7 % (2-9); Neutrophils % 83 % (42-76); Platelet Estimate Normal; RBC Morphology Normal; Total Cells Counted 100
--- NOTE | 2022-01-18 09:38 | HMH.OTEV ---
OT Inpatient Evaluation Rehab OT IP Evaluation Start: 01/17/22 11:18 Freq: ONCE Status: Complete Protocol: Document 01/18/22 09:31 RAMA (Rec: 01/18/22 09:38 [facility] [id number]) Rehab OT IP Assessment Subjective History Pt oriented x 3 on arrival. Pt agreeable to engage in therapy evaluation. Pt was admitted on 01/16/22 due to shortness of breath. Pt reports prior to being in the hospital she lived at home with her son. Pt claims she was independent with dressing, feeding, and sponge bathing. Pt also claims she was independent with some IADLs such as cooking. However, she did report her son does assist her when needed. Pt used a walker during ambulation and did have oxygen at home when needed. The following information was copied from history and report : 71-year-old female presenting to the emergency department with shortness of breath. Symptoms got worse tonight when she was trying to sleep. She felt like she could not breathe or get enough air. Was coughing. When EMS arrived she was wearing nasal cannula, but there was no oxygen flowing. Patient usually uses 2 L all of the time. Her initial oxygen saturation was 78%. They placed her on supplemental nasal cannula and transported to the emergency department. She was given a DuoNeb in route. She has a history of COPD. Continues to smoke tobacco. Says she is had pneumonia on and off for the last year. Is not currently on steroids or antibiotics. Denies chest pain, abdominal pain.
--- NOTE | 2022-01-18 10:02 | HMH.PULMPN ---
Internal Medicine - PN: Subj *Date: 01/18/22 *Time: 10:02 Interval history: No acute respiratory events overnight. Patient denies any new respiratory complaints. Admits continued improvement in her symptoms. Exam - Constitutional Constitutional:: Present: no acute distress, comfortable - HENMT Exam HENMT: Present: normocephalic, atraumatic - Eye Exam Eyes:: Present: normal appearance both eyes and related structures - Neck Exam Neck:: Present: normal visual inspection - Respiratory Exam Respiratory:: Present: able to speak in complete sentences, no respiratory distress, normal respiratory effort. Absent: wheezing - Cardiovascular Exam Cardiac:: Present: S1, S2 - GI Exam GI:: Present: soft - Skin Exam Skin: Present: warm, no rash - Neurological Exam Neurological: Present: alert, awake - Extremities Exam Extremities: Present: no cyanosis, no clubbing, no edema Assessment and Plan (1) Acute exacerbation of chronic obstructive airways disease Status: Acute Category: Medical Code(s): J44.1 - Chronic obstructive pulmonary disease with (acute) exacerbation (2) Tobacco dependence Status: Chronic Category: Medical Code(s): F17.200 - Nicotine dependence, unspecified, uncomplicated (3) Obesity (BMI 30-39.9) Status: Acute Category: Medical Code(s): E66.9 - Obesity, unspecified (4) Community acquired bacterial pneumonia Status: Acute Category: Medical Code(s): J15.9 - Unspecified bacterial pneumonia (5) Sepsis with acute organ dysfunction Status: Acute Category: Medical Code(s): A41.9 - Sepsis, unspecified organism; R65.20 - Severe sepsis without septic shock - Assessment and plan all Dx Assessment and Plan for all problems:: #Acute on chronic hypoxic hypercarbic respiratory failure: #COPD Exacerbation : #Community-acquired pneumonia: 71-year-old H/o COPD on triple inhaler therapy. Last seen in pulmonary clinic in March 2021. Home inhaler therapy includes Symbicort and Spiriva. Presented with worsening respiratory distress found to be hypoxic hypercarbic respiratory failure. Chest X-ray on admission bilateral lower lobe predominant airspace disease right greater than left. Right hilar fullness noted. Patient needing BiPAP therapy for 24 hours, respiratory significantly improved, this morning weaned to nasal cannula 2 L. Saturations maintained at 90% and above. Patient continued to remain on nasal cannula for the last 24 hours. She denies any worsening respiratory distress but admits continued improvement in her symptoms. Significant improvement in auscultation. Leukocytosis stable. She admits compliance with her inhalers. Plan: -Continue nasal oxygen supplementation to maintain O2 saturation goal of 88 to 94%. Patient currently on 2 L which is her home oxygen therapy. -Continue home inhaler therapy including Symbicort and Spiriva along with DuoNebs every 6 hours on as-needed basis. -Prednisone 40 mg daily for 5 days -Wean antibiotics to levofloxacin to complete a total of 5-day course. #Multiple pulmonary nodules: Patient most recent CAT scan performed in July 2021 to follow-up on the lung nodules in October 2019 showed mostly stable but new infiltrate/nodules in the left upper lobe and left lower lobe that warrants a follow-up CT chest. Plan: -We will follow with CT chest without contrast with her next clinic visit Thank you for involving pulmonary in this patient care. We will follow the patient in pulmonary clinic in 4 to 6 weeks wwith PFT, 6-minute walk testing and CT chest without contrast.
--- NOTE | 2022-01-18 13:03 | HMH.ACPN2 ---
Internal Medicine - PN: Subj *Date: 01/18/22 *Time: 13:03 Exam Vital signs and Labs for Last 24 Hours: Temp Pulse Resp BP Pulse Ox 97.7 F 79 16 158/60 H 93 L 01/18/22 11:21 01/18/22 11:21 01/18/22 11:21 01/18/22 11:21 01/18/22 11:21 Laboratory Results - last 24 hr 01/18/22 05:54: WBC 15.9 H, RBC 4.45, Hgb 12.6, Hct 40.4, MCV 90.8, MCH 28.3, MCHC 31.2 L, RDW 15.3, Plt Count 280, MPV 8.3, Neut % (Auto) 85.0 H, Lymph % (Auto) 9.6 L, [place] % (Auto) 5.2, Eos % (Auto) 0.1, Baso % (Auto) 0.2, Neut # (Auto) 13.6 H, Lymph # (Auto) 1.5, [place] # (Auto) 0.8, Eos # (Auto) 0.0, Baso # (Auto) 0.0, Total Counted 100, Neutrophils % (Manual) 83 H, Lymphocytes % (Manual) 10, Monocytes % (Manual) 7, Platelet Estimate Normal, RBC Morphology Normal 01/18/22 05:54: Sodium 142, Potassium 3.7, Chloride 111 H, Carbon Dioxide 27, Anion Gap 7.7, BUN 14, Creatinine 0.50 L, Estimated Creat Clear 72, Estimated GFR 121, Est GFR ( Amer) 147, Glucose 122 H, Calcium 8.4 I & O for Last 24 hours: Intake & Output 01/15/22 01/16/22 01/17/22 01/18/22 23:59 23:59 23:59 23:59 Intake Total 0 / 0 1020 / 1020 480 / 480 Output Total 300 / 300 750 / 1000 250 / 250 Balance -300 / -300 270 / 20 230 / 230 Weight 193 lb 6 oz 199 lb 4.766 oz 199 lb Microbiology Reports for the Last 24 Hours: Microbiology 01/16/22 05:22 Blood Blood Culture - Preliminary NO GROWTH AFTER 48 HOURS 01/16/22 05:22 Blood Blood Culture - Preliminary NO GROWTH AFTER 48 HOURS Assessment and Plan (1) Acute exacerbation of chronic obstructive airways disease Status: Acute Category: Medical Code(s): J44.1 - Chronic obstructive pulmonary disease with (acute) exacerbation (2) Tobacco dependence Status: Chronic Category: Medical Code(s): F17.200 - Nicotine dependence, unspecified, uncomplicated (3) Obesity (BMI 30-39.9) Status: Acute Category: Medical Code(s): E66.9 - Obesity, unspecified (4) Community acquired bacterial pneumonia Status: Acute Category: Medical Code(s): J15.9 - Unspecified bacterial pneumonia (5) Sepsis with acute organ dysfunction Status: Acute Category: Medical Code(s): A41.9 - Sepsis, unspecified organism; R65.20 - Severe sepsis without septic shock
--- NOTE | 2022-01-18 13:05 | HMH.DCSUM ---
General - General Admission date:: 01/16/22 HPI HPI: 71-year-old female presenting to the emergency department with shortness of breath. Symptoms got worse tonight when she was trying to sleep. She felt like she could not breathe or get enough air. Was coughing. When EMS arrived she was wearing nasal cannula, but there was no oxygen flowing. Patient usually uses 2 L all of the time. Her initial oxygen saturation was 78%. They placed her on supplemental nasal cannula and transported to the emergency department. She was given a DuoNeb in route. She has a history of COPD. Continues to smoke tobacco. Says she is had pneumonia on and off for the last year. Is not currently on steroids or antibiotics. Denies chest pain, abdominal pain. No known Covid exposure. No fevers or chills. She lives with her adult son (Per Sushma Thibodeaux MD). CXR: FINDINGS: Lungs: No focal airspace disease. Stable right upper lobe nodules, evaluated on prior CT. Pleural spaces: Unremarkable. No pleural effusion. No pneumothorax. Heart/Mediastinum: Cardiomediastinal silhouette is within normal limits. Bones/joints: Unremarkable. IMPRESSION: No acute cardiopulmonary abnormality. Electronically signed by Cristiana Leo MD In the ED she received Solu-Medrol 125mg, Ceftriaxone 1 gm, Azithromycin 500mg IV and was placed on BiPap Hospital Course Hospital Course: The patient was admitted and placed on a regimen of IV antibiotics. Her inpatient regimen included Rocephin, azithromycin, Spiriva, Pulmicort, and duo nebs. Patient known to have a history of longstanding COPD. She was initially placed on BiPAP, transitioned to nasal cannula at 2 L. She has a nebulizer machine at home. During the course of her stay the patient made progressive improvements. Patient was seen in consultation with pulmonary. Airspace disease was noted and discussed, plans for CT chest were discussed on follow-up. A regimen of Levaquin and prednisone was recommended. Objective Vital signs: Temp Pulse Resp BP Pulse Ox 97.7 F 79 16 158/60 H 93 L 01/18/22 11:21 01/18/22 11:21 01/18/22 11:21 01/18/22 11:21 01/18/22 11:21 no acute distress, obese, cooperative - *Routine HEENT Exam Head: Present: normocephalic Eye: Present: EOMI, PERRL ENT: Present: mucous membranes moist - *Routine Neck Exam Present: supple - *Routine Respiratory Exam Present: diminished air movement. Absent: accessory muscle use - *Routine Cardiovascular Exam Present: RRR - *Routine Abdominal Exam Present: soft, normoactive bowel sounds. Absent: tenderness - *Routine Extremities Exam Absent: cyanosis, clubbing, edema Results Labs on day of discharge: Labs from last 24 hours 01/18/22 01/18/22 05:54 05:54 WBC 15.9 H RBC 4.45 Hgb 12.6 Hct 40.4 MCV 90.8 MCH 28.3 MCHC 31.2 L RDW 15.3 Plt Count 280 MPV 8.3 Neut % (Auto) 85.0 H Lymph % (Auto) 9.6 L [place] % (Auto) 5.2 Eos % (Auto) 0.1 Baso % (Auto) 0.2 Neut # (Auto) 13.6 H Lymph # (Auto) 1.5 [place] # (Auto) 0.8 Eos # (Auto) 0.0 Baso # (Auto) 0.0 Total Counted 100 Neutrophils % (Manual) 83 H Lymphocytes % (Manual) 10 Monocytes % (Manual) 7 Platelet Estimate Normal RBC Morphology Normal Sodium 142 Potassium 3.7 Chloride 111 H Carbon Dioxide 27 Anion Gap 7.7 BUN 14 Creatinine 0.50 L Estimated Creat Clear 72 Estimated GFR 121 Est GFR ( Amer) 147 Glucose 122 H Calcium 8.4 Preliminary micro results at discharge 01/16/22 05:22 Blood Culture - Preliminary Blood NO GROWTH AFTER 48 HOURS 01/16/22 05:22 Blood Culture - Preliminary Blood NO GROWTH AFTER 48 HOURS DS: Diagnosis - Discharge Diagnosis (1) Acute exacerbation of chronic obstructive airways disease Status: Acute (2) Tobacco dependence Status: Chronic (3) Obesity (BMI 30-39.9) Status
--- NOTE | 2022-01-18 15:05 | HMH.PHAINT ---
Discharge counseling complete. Informed pt of new medications, purpose, how to take, and potential side effects. Pt understood and had no questions or concerns.
== END 2022-01-18 15:34 | disposition home or self-care (01) ==
LOC: ER 06:52 → 2ND 07:59
PROVIDERS: Internal Medicine Adolescent Medicine; Internal Medicine Pulmonary Disease; Nurse Practitioner Family; Admitting Provider Emergency Medicine; Emergency Provider Emergency Medicine; PCP Emergency Medicine; Visit Provider Emergency Medicine
DX: J44.1 Chronic obstructive pulmonary disease with (acute) exacerbation (principal); J44.0 Chronic obstructive pulmonary disease with (acute) lower respiratory infection; F41.9 Anxiety disorder, unspecified; I25.10 Atherosclerotic heart disease of native coronary artery without angina pectoris; E78.5 Hyperlipidemia, unspecified; I10 Essential (primary) hypertension; F17.210 Nicotine dependence, cigarettes, uncomplicated; E66.9 Obesity, unspecified; Z68.35 Body mass index [BMI] 35.0-35.9, adult; J96.02 Acute respiratory failure with hypercapnia; J96.01 Acute respiratory failure with hypoxia; Z79.899 Other long term (current) drug therapy; R06.9 Unspecified abnormalities of breathing; Z20.822 Contact with and (suspected) exposure to COVID-19
CPT/HCPCS: G0378; 36415; 71045; 80048; 80053; 81001; 82803; 83605; 83880; 85007; 85025; 87040; 92610; 93005; 94640; 94660; 94761; 96365; 96367; 96375; 97162; 97166; 99285; C9803; J0456; J0696; U0003; U0005

== ENCOUNTER → 2022-01-25 15:06 | Outpatient (CLI) | payer MEDICARE, OTHER, SELFPAY ==
[2022-01-25 14:02] LABS: Phencyclidine Screen,Urine Negative ng/ml (<25)
[2022-01-25 14:04] LABS: Amphetamine/Metha Screen,Urine Negative ng/ml (<1000); Barbiturates Screen,Urine Negative ng/ml (<200)
[2022-01-25 14:05] LABS: Benzodiazepines Screen,Urine Positive ng/ml (<200)
[2022-01-25 14:06] LABS: Cannabinoid Screen,Urine Negative ng/ml (<50)
[2022-01-25 14:07] LABS: Cocaine Screen,Urine Negative ng/ml (<300)
[2022-01-25 14:10] LABS: Methadone Screen,Urine Negative ng/ml (<300)
[2022-01-25 14:11] LABS: Opiate Screen,Urine Negative ng/ml (<300)
== END ==
PROVIDERS: Visit Provider Emergency Medicine
DX: Z79.899 Other long term (current) drug therapy (principal)
CPT/HCPCS: 80305

== ENCOUNTER 2022-02-08 18:18 | Emergency (ER) | payer MEDICARE, OTHER, SELFPAY ==
[2022-02-08 18:10] VITALS: BP 162/87; PULSE 88; RESP 25; TEMP 36.9; O2SAT 96; BMI 29.7
--- NOTE | 2022-02-08 18:18 | XR_ITS ---
PROCEDURE INFORMATION: Exam: XR Chest Exam date and time: 02/08/2022 6:26 PM Age: 71 years old Clinical indication: Shortness of breath; Additional info: SOA TECHNIQUE: Imaging protocol: XR of the chest. Portable AP exam 6:28 p.m. Views: 1 view. Two images received. COMPARISON: CR XR CHEST PORTABLE 01/16/2022 5:21 AM FINDINGS: Tubes, catheters and devices: Overlying oxygen tubing. Lungs: Chronic pulmonary nodules better seen on previous CT 09/28/2021. Pulmonary hyperinflation, worsened compared with the previous chest x-ray. No focal consolidation. Pulmonary vessels do not appear significantly congested. Pleural spaces: Unremarkable. No pleural effusion. No pneumothorax. 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 Upper normal cardiac size, accentuated by portable AP film technique. Bones/joints: There is no evidence of acute fracture. Soft tissues: No acute findings in the soft tissues, as visualized. IMPRESSION: 1. Increased pulmonary hyperinflation compared with the prior chest x-ray, suggesting worsening obstructive lung disease. 2. Chronic pulmonary nodules, better seen on previous chest CT of 09/28/2021. 3. No consolidation. 4. Additional nonemergency and chronic findings as above.
[2022-02-08 18:27] LABS: Microscopic, Urine URINE MICROSCOPIC (MICROSCOPIC)
[2022-02-08 18:37] LABS: Appearance,Urine CLEAR (Clear); Bilirubin,Urine Negative (Negative); Blood, Urine Negative (Negative); Color,Urine YELLOW (Yellow); Glucose,Urine (UA) Negative (Negative); Ketones,Urine Negative (Negative); Leukocyte Esterase,Urine 1+ (Negative); Nitrate,Urine POSITIVE (Negative); PH,Urine 6.5 (5.0-8.5); Protein,Urine Negative (Negative); Specific Gravity, Urine <= 1.005 (1.005-1.030); Urobilinogen,Urine 0.2 EU/dl (0.2)
--- NOTE | 2022-02-08 18:42 | ECG_ITS ---
APPROVED REPORT Exam: Resting ECG HR:78 bpm ECG Measurements Heart Rate 78 AXES NH 134 P 73 QRSd 89 QRS 74 QT 374 T 61 QTc 408 Conclusion SINUS RHYTHM NORMAL ECG UNCONFIRMED REPORT Electronically signed by : Janes Delgado MD 02/09/2022 08:15:57
[2022-02-08 18:56] LABS: Bacteria,Urine 2+ /lpf
[2022-02-08 18:57] LABS: Basophils # 0.1 K/mm3 (0-0.2); Basophils % 0.6 % (0.1-2.0); Eosinophils # 0.2 K/mm3 (0.0-0.4); Eosinophils % 1.8 % (0.1-12.0); Hematocrit 46.6 % (37.0-47.0); Hemoglobin 14.8 g/dL (12.2-16.2); Lymphocytes # 2.8 K/mm3 (0.7-4.5); Lymphocytes % 21.6 % (10-50); Mean Corpuscular HGB Conc 31.7 g/dL (31.8-35.4); Mean Corpuscular Hemoglobin 28.2 pg (27.0-31.2); Mean Platelet Volume 8.1 fl (7.4-10.4); Monocytes # 0.7 K/mm3 (0.1-1.0); Monocytes % 5.6 % (1.7-9.3); Neutrophils # 9.1 K/mm3 (1.8-7.8); Neutrophils % 70.3 % (37.0-80.0); Platelet Count 290 K/mm3 (142-424); Red Blood Count 5.23 M/mm3 (4.20-5.40); Red Cell Distribution Width 15.5 % (11.5-17.5)
[2022-02-08 19:10] LABS: Alanine Aminotransferase 18 U/L (12-78); Albumin Level 4.1 g/dl (3.5-5.0); Albumin/Globulin Ratio 1.6 (1.1-1.8); Alkaline Phosphatase 70 U/L (38-126); Anion Gap 8.1 mEq/L (5-15); Aspartate Amino Transferase 22 U/L (14-36); Bilirubin,Total 0.3 mg/dl (0.2-1.3); Blood Urea Nitrogen 5 mg/dl (7-17); Calcium 9.7 mg/dl (8.4-10.2); Carbon Dioxide 36 mmol/L (22.0-30.0); Chloride 103 mmol/L (98-107); Creatinine Clearance Estimated 69 mL/min (50-200); Estimated Glomerular Filt Rate 121 ml/min (>60); GFR (African American) 147 ML/MIN (>60); Globulin 2.6 g/dL (1.3-3.2); Glucose 105 mg/dl (74-100); Potassium 4.1 mmoL/L (3.5-5.1); Sodium 143 mmol/L (136-145); Total Protein,Serum 6.7 g/dl (6.3-8.2)
[2022-02-08 19:21] LABS: Troponin I < 0.01 ng/ml (0.00-0.034)
[2022-02-08 22:08] LABS: Troponin I < 0.01 ng/ml (0.00-0.034)
--- NOTE | 2022-02-08 22:58 | HMH.EDSOB ---
ED Disposition Clinical Impression: Acute exacerbation of chronic obstructive airways disease, Tobacco dependence UTI (urinary tract infection) Qualifiers: Urinary tract infection type: site unspecified Hematuria presence: without hematuria Qualified Code(s): N39.0 - Urinary tract infection, site not specified Disposition: Home, Self-Care Condition on Discharge: Good Instructions: DI for Chronic Obstructive Pulmonary Disease Additional Instructions: use meds and hold tob and see pcp next week and use meds as directed - should hold pain meds and anxiety meds and dec neurotin by half at this time Prescriptions: cephALEXin [cephALEXin 500mg capsule*] 500 mg PO TID #30 cap Transmission Status: Pending to [facility] predniSONE [Prednisone 20mg Tab] 20 mg PO BID #10 tab Transmission Status: Pending to [facility] Referrals: Mark Mcclain MD [Primary Care Provider] - - Critical Care Critical Care Time: No Attestation: On 02/08/22, the high probability of a clinically significant, sudden or life threatening deterioration of the following system(s) required my full and direct attention, intervention and personal management. The time I documented below is in addition to time spent performing reported procedures but includes the following listed in this critical care notation. Medical Decision Making - Medical Records Medical records reviewed: Yes: I reviewed the patient's medical records. - Alex Inquiry Pt receiving controlled substance: No Vital Signs: 02/08/22 18:10 02/08/22 23:46 Temperature 98.4 F Temperature Source Oral Pulse Rate 76 Pulse Rate [Right Radial] 88 Respiratory Rate 25 H Blood Pressure [Right Arm] 162/87 H Blood Pressure Mean [Right Arm] 112 02 Sat by Pulse Oximetry 96 Oxygen Delivery Method Nasal Cannula Oxygen Flow Rate (LPM) 2 - Lab Data Lab results reviewed: Yes: I reviewed the patient's lab results. Lab Results 02/08/22 18:20: Urine Color Yellow, Urine Appearance Clear, Urine pH 6.5, Ur Specific [place] <= 1.005, Urine Protein Negative, Urine Glucose (UA) Negative, Urine Ketones Negative, Urine Blood Negative, Urine Nitrate Positive, Urine Bilirubin Negative, Urine Urobilinogen 0.2, Ur Leukocyte Esterase 1+ A, Urine WBC 5-10, Urine Bacteria 2+ 02/08/22 18:37: WBC 13.0 H, RBC 5.23, Hgb 14.8, Hct 46.6, MCV 89.0, MCH 28.2, MCHC 31.7 L, RDW 15.5, Plt Count 290, MPV 8.1, Neut % (Auto) 70.3, Lymph % (Auto) 21.6, [place] % (Auto) 5.6, Eos % (Auto) 1.8, Baso % (Auto) 0.6, Neut # (Auto) 9.1 H, Lymph # (Auto) 2.8, [place] # (Auto) 0.7, Eos # (Auto) 0.2, Baso # (Auto) 0.1 02/08/22 18:37: Sodium 143, Potassium 4.1, Chloride 103, Carbon Dioxide 36 H, Anion Gap 8.1, BUN 5 L, Creatinine 0.50 L, Estimated Creat Clear 69, Estimated GFR 121, Est GFR ( Amer) 147, Glucose 105 H, Calcium 9.7, Total Bilirubin 0.3, AST 22, ALT 18, Alkaline Phosphatase 70, Troponin I < 0.01, Total Protein 6.7, Albumin 4.1, Globulin 2.6, Albumin/Globulin Ratio 1.6 02/08/22 21:26: Troponin I < 0.01 02/08/22 22:59: Specimen Source Right radial, O2 % 3l, ABG pH 7.36, ABG pCO2 58.0 H, ABG pO2 68.0 L, ABG HCO3 32.0 H, ABG Total CO2 33.8 H, ABG O2 Saturation 94, ABG Base Excess 6.6 H, Jose Test Acceptable Result diagrams: 02/08/22 18:37 02/08/22 18:37 Orders (Tests/Meds): ED MEDICATIONS Generic Name Dose Route Start Last Admin Trade Name Freq PRN Reason Stop Dose Admin Ceftriaxone Sodium 1 gm/ 50 mls @ 100 mls/hr 02/08/22 23:15 02/08/22 23:07 Sodium Chloride IV 02/22/22 23:14 100 mls/hr Q24H DANETTE Administration Sodium Chloride 10 ml 02/08/22 18:18 Sodium Chloride 0.9% 10ml Flush Syringe IV 03/10/22 18:17 NEEDED PRN Maintain IV Site Discontinued Medications Generic Name Dose Route Start Last Admin Trade Name Freq PRN Reason Stop Dose Admin Albuterol/Ipratropium 3 ml 02/08/22 23:05 02/08/22 23:05 Ipratropium/Albuterol 3 Ml Neb IH 02/08/22 23:06 3
[2022-02-08 23:42] LABS: ABG Base Excess 6.6 mmol/L (-2.4-2.3); ABG Oxygen Saturation 94 % (90-100); ABG PH 7.36 mmol/L (7.35-7.45); ABG TCO2 33.8 mmhg (23-27); Allen's Test Acceptable; Oxygen 3L %; Source Right Radial
--- NOTE | 2022-02-08 23:45 | PC.NURSE ---
Spoke with Kristina in lab. Critical abg report entered and reported to md. No further orders
[2022-02-08 23:46] VITALS: PULSE 76
--- NOTE | 2022-02-09 02:52 | PC.NURSE ---
PATIENT GIVEN CHICKEN NOODLE SOUP, CRACKERS AND PEANUT AND A SOFT DRINK, PATIENT NOW SLEEPING QUIETLY
[2022-02-09 07:00] VITALS: BP 156/77; PULSE 87; RESP 19; O2SAT 95
[2022-02-09 07:31] VITALS: BP 134/73; PULSE 84; RESP 23; O2SAT 96
[2022-02-09 08:00] VITALS: BP 138/78; PULSE 88; RESP 20; O2SAT 95
[2022-02-09 09:19] VITALS: BP 152/85; PULSE 78; RESP 18; TEMP 36.6; O2SAT 98
== END 2022-02-09 09:21 | disposition home or self-care (01) ==
PROVIDERS: Emergency Medicine; Emergency Provider Emergency Medicine; PCP Emergency Medicine
DX: J44.1 Chronic obstructive pulmonary disease with (acute) exacerbation (principal); N30.00 Acute cystitis without hematuria; E11.9 Type 2 diabetes mellitus without complications; I10 Essential (primary) hypertension; E03.9 Hypothyroidism, unspecified; E78.5 Hyperlipidemia, unspecified; F17.210 Nicotine dependence, cigarettes, uncomplicated; Z99.81 Dependence on supplemental oxygen; Z79.899 Other long term (current) drug therapy
CPT/HCPCS: 71045; 80053; 81001; 82803; 84484; 85025; 87086; 87088; 87186; 93005; 96365; 96367; 96375; 99284; J0696

== ENCOUNTER 2022-02-27 09:37 | Observation (INO) | payer MEDICARE, OTHER, SELFPAY ==
[2022-02-27] VITALS (17 sets, daily range): BP systolic 97–128; BP diastolic 41–67; PULSE 73–115; RESP 13–23; TEMP 36.5–37.6; O2SAT 89–97; BMI 29.7; BMI 28.3
--- NOTE | 2022-02-27 09:37 | ECG_ITS ---
APPROVED REPORT Exam: Resting ECG HR:100 bpm ECG Measurements Heart Rate 100 AXES SC 139 P 67 QRSd 85 QRS 83 QT 370 T 61 QTc 427 Conclusion SINUS TACHYCARDIA ABNORMAL RHYTHM ECG UNCONFIRMED REPORT Electronically signed by : Janes Delgado MD 02/28/2022 11:49:13
--- NOTE | 2022-02-27 09:53 | XR_ITS ---
FINAL REPORT CLINICAL HISTORY: SOA, cough COMPARISON: February 08, 2022 FINDINGS: SINGLE VIEW CHEST The heart is normal in size. The mediastinum is unremarkable. There are mild left lung base opacities favoring atelectasis over pneumonia. There is no pneumothorax. IMPRESSION: Mild left lung base opacities favoring atelectasis over pneumonia. Reviewed, Interpreted and Dictated by Luis Billingsley III, MD Transcribed by Jacey Villagran Authenticated by Luis Billingsley III, MD on 02/27/2022 11:03:[address] [facility]
[2022-02-27 10:04] LABS: Basophils # 0.1 K/mm3 (0-0.2); Eosinophils # 0.2 K/mm3 (0.0-0.4); Eosinophils % 1.2 % (0.1-12.0); Hematocrit 43.9 % (37.0-47.0); Hemoglobin 13.7 g/dL (12.2-16.2); Lymphocytes # 2.2 K/mm3 (0.7-4.5); Lymphocytes % 17.4 % (10-50); Mean Corpuscular HGB Conc 31.2 g/dL (31.8-35.4); Mean Corpuscular Hemoglobin 28.1 pg (27.0-31.2); Mean Corpuscular Volume 90.1 fl (81-99); Mean Platelet Volume 8.1 fl (7.4-10.4); Monocytes # 0.6 K/mm3 (0.1-1.0); Monocytes % 4.9 % (1.7-9.3); Neutrophils # 9.5 K/mm3 (1.8-7.8); Neutrophils % 75.5 % (37.0-80.0); Platelet Count 255 K/mm3 (142-424); Red Blood Count 4.87 M/mm3 (4.20-5.40); Red Cell Distribution Width 16.1 % (11.5-17.5); White Blood Count 12.6 K/mm3 (4.8-10.8)
[2022-02-27 10:05] LABS: Chloride 104 mmol/L (98-107)
[2022-02-27 10:06] LABS: Potassium 3.7 mmoL/L (3.5-5.1); Sodium 141 mmol/L (136-145)
[2022-02-27 10:08] LABS: Alanine Aminotransferase 12 U/L (12-78); Anion Gap 5.7 mEq/L (5-15); Aspartate Amino Transferase 18 U/L (14-36); Blood Urea Nitrogen 6 mg/dl (7-17); Carbon Dioxide 35 mmol/L (22.0-30.0); Creatinine Clearance Estimated 69 mL/min (50-200); Estimated Glomerular Filt Rate 98 ml/min (>60); GFR (African American) 119 ML/MIN (>60)
[2022-02-27 10:09] LABS: Lactic Acid 0.8 mmol/L (0.7-2.1)
[2022-02-27 10:09] LABS: Albumin Level 3.4 g/dl (3.5-5.0); Albumin/Globulin Ratio 1.4 (1.1-1.8); Alkaline Phosphatase 73 U/L (38-126); Bilirubin,Total 0.3 mg/dl (0.2-1.3); Globulin 2.4 g/dL (1.3-3.2); Glucose 126 mg/dl (74-100); Total Protein,Serum 5.8 g/dl (6.3-8.2)
--- NOTE | 2022-02-27 10:23 | HMH.EDGENADL ---
ED Disposition Clinical Impression: COPD exacerbation Respiratory failure with hypoxia and hypercapnia Qualifiers: Chronicity: acute on chronic Qualified Code(s): J96.21 - Acute and chronic respiratory failure with hypoxia; J96.22 - Acute and chronic respiratory failure with hypercapnia Disposition: Admitted as Observation Condition on Discharge: Fair Referrals: Mark Mcclain MD [Primary Care Provider] - - Critical Care Critical Care Time: No Attestation: On 02/27/22, the high probability of a clinically significant, sudden or life threatening deterioration of the following system(s) required my full and direct attention, intervention and personal management. The time I documented below is in addition to time spent performing reported procedures but includes the following listed in this critical care notation. Medical Decision Making - Medical Records Medical records reviewed: Yes: I reviewed the patient's medical records. MR Comment: Last ER visit 02/09/2022 for shortness of breath. Treated with Keflex and a 5-day course of prednisone. - Alex Inquiry Pt receiving controlled substance: No Vital Signs: 02/27/22 09:38 02/27/22 09:41 02/27/22 10:00 Temperature 99.7 F H 99.7 F H Temperature Source Oral Oral Pulse Rate 99 H 93 H Pulse Rate [Right Radial] 99 H Respiratory Rate 18 13 22 Blood Pressure 118/55 L 116/58 L Blood Pressure [Right Arm] 118/55 L Blood Pressure Mean [Right Arm] 76 Blood Pressure Source [Right Arm] Automatic Cuff Blood Pressure Position [Right Arm] Sitting 02 Sat by Pulse Oximetry 91 L 90 L 93 L Oxygen Delivery Method Nasal Cannula Nasal Cannula Nasal Cannula Oxygen Flow Rate (LPM) 3 2 3 02/27/22 10:30 02/27/22 11:00 02/27/22 11:30 Temperature Temperature Source Pulse Rate 115 H 86 82 Pulse Rate [Right Radial] Respiratory Rate 19 23 22 Blood Pressure 119/63 107/49 L 114/46 L Blood Pressure [Right Arm] Blood Pressure Mean [Right Arm] Blood Pressure Source [Right Arm] Blood Pressure Position [Right Arm] 02 Sat by Pulse Oximetry 92 L 93 L 92 L Oxygen Delivery Method Nasal Cannula Nasal Cannula Nasal Cannula Oxygen Flow Rate (LPM) 2 2 4 02/27/22 12:01 Temperature Temperature Source Pulse Rate 82 Pulse Rate [Right Radial] Respiratory Rate 20 Blood Pressure 118/50 L Blood Pressure [Right Arm] Blood Pressure Mean [Right Arm] Blood Pressure Source [Right Arm] Blood Pressure Position [Right Arm] 02 Sat by Pulse Oximetry 97 Oxygen Delivery Method Nasal Cannula Oxygen Flow Rate (LPM) 2 - Lab Data Lab Results 02/27/22 09:40: WBC 12.6 H, RBC 4.87, Hgb 13.7, Hct 43.9, MCV 90.1, MCH 28.1, MCHC 31.2 L, RDW 16.1, Plt Count 255, MPV 8.1, Neut % (Auto) 75.5, Lymph % (Auto) 17.4, Door % (Auto) 4.9, Eos % (Auto) 1.2, Baso % (Auto) 1.0, Neut # (Auto) 9.5 H, Lymph # (Auto) 2.2, Door # (Auto) 0.6, Eos # (Auto) 0.2, Baso # (Auto) 0.1 02/27/22 09:40: Sodium 141, Potassium 3.7, Chloride 104, Carbon Dioxide 35 H, Anion Gap 5.7, BUN 6 L, Creatinine 0.60, Estimated Creat Clear 69, Estimated GFR 98, Est GFR ( Amer) 119, Glucose 126 H, Calcium 8.0 L, Total Bilirubin 0.3, AST 18, ALT 12, Alkaline Phosphatase 73, Total Protein 5.8 L, Albumin 3.4 L, Globulin 2.4, Albumin/Globulin Ratio 1.4 02/27/22 09:40: NT-Pro-B Natriuret Pep 11.7 02/27/22 09:50: Lactate 0.8 02/27/22 10:40: SARS-CoV-2 (PCR) Not detected, Influenza A Untype (PCR) Not detected, Influenza Type B (PCR) Not detected 02/27/22 11:34: Specimen Source Left radial, O2 % 3 lpm, ABG pH 7.30 L, ABG pCO2 64.0 H, ABG pO2 65.7 L, ABG HCO3 30.9 H, ABG Total CO2 32.9 H, ABG O2 Saturation 92, ABG Base Excess 4.5 H, Jose Test Patient unable Result diagrams: 02/27/22 09:40 02/27/22 09:40 Orders (Tests/Meds): ED MEDICATIONS Generic Name Dose Route Start Last Admin Trade Name Freq PRN Reason Stop Dose Admin Ceftriaxone Sodium 1 gm/ 50 mls @ 100 mls/hr 02/27/22 10:45 02/27/22 10:55 Sodium
--- NOTE | 2022-02-27 10:36 | PC.NURSE ---
Contacted lab about BNP add on
[2022-02-27 10:46] LABS: Coronavirus 19, PCR Not Detected (NotDetected); Influenza A, PCR Not Detected (NotDetected); Influenza B, PCR Not Detected (NotDetected)
[2022-02-27 10:58] LABS: NT Pro Brain Natriuretic Pep. 11.7 pg/mL (0-125)
--- NOTE | 2022-02-27 11:35 | PC.NURSE ---
RT notified of ABG
[2022-02-27 11:50] LABS: ABG Base Excess 4.5 mmol/L (-2.4-2.3); ABG HCO3 30.9 mmhg (22.0-26.0); ABG Oxygen Saturation 92 % (90-100); ABG PO2 65.7 mmhg (80-100); ABG TCO2 32.9 mmhg (23-27)
[2022-02-27 11:53] LABS: Allen's Test Patient Unable; Oxygen 3 LPM %; Source Left Radial
--- NOTE | 2022-02-27 11:54 | PC.NURSE ---
RT called with critical ABG results, results repeated and verified results given to VALERI WALKER
--- NOTE | 2022-02-27 11:58 | PC.NURSE ---
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
--- NOTE | 2022-02-27 12:11 | PC.NURSE ---
VALERI WALKER speaking with Dr. Mcclain
--- NOTE | 2022-02-27 12:17 | PC.NURSE ---
notified care management of admission, spoke with shai
--- NOTE | 2022-02-27 12:39 | PC.NURSE ---
waiting on fax from alexis barrientos with pt medication list, pt states she did not know the names of her medications
--- NOTE | 2022-02-27 14:38 | PC.NURSE ---
Rounded on pt at this time. Updated on POC. No new needs
--- NOTE | 2022-02-27 14:56 | PC.NURSE ---
report called to julius borges on second floor at this time
--- NOTE | 2022-02-27 15:12 | P.CONPHA_ITS ---
[facility] Pharmacy VTE Monitoring - Patient Demographics Admission date: 02/27/22 Report Date: 02/27/22 Time: 15:12 Allergies/Adverse Reactions: Patient Allergies metronidazole Allergy (Unknown, Verified 01/25/22 09:57) I-HIVES nitrofurantoin [From MACROBID] Allergy (Unknown, Verified 01/25/22 09:57) Unknown allergy reaction Height: 1.7 m Weight: 86.183 kg Patient Problems: Current Active Problems COPD exacerbation (Acute) Respiratory failure with hypoxia and hypercapnia (Acute) - VTE Risk Labs: VTE Related Lab Results Hgb 13.7 g/dL (12.2-16.2) 02/27/22 09:40 Hct 43.9 % (37.0-47.0) 02/27/22 09:40 Plt Count 255 K/mm3 (142-424) 02/27/22 09:40 BUN 6 mg/dl (7-17) L 02/27/22 09:40 Creatinine 0.60 mg/dl (0.52-1.04) 02/27/22 09:40 Estimated Creat Clear 69 mL/min (50-200) 02/27/22 09:40 Clinical Trial Participant: No - Prophylaxis VTE Prophylaxis Ordered?: Yes Types of VTE Prophylaxis: TEDS Knee High
--- NOTE | 2022-02-27 15:18 | PC.NURSE ---
JOSHUA james to get patient to take to 2nd floor by wheelchair
--- NOTE | 2022-02-27 15:30 | HMH.PHAINT ---
Home medications were verified using claim PBM history and discharge medication list from visit a couple of weeks ago.
[2022-02-27 16:35] LABS: Adenovirus,PCR Not Detected (NotDetected); Bordetella Pertussis Not Detected (NotDetected); Chlamydophila Pneumoniae, PCR Not Detected (NotDetected); Coronavirus 229E Not Detected (NotDetected); Coronavirus NL63 Not Detected (NotDetected); Coronavirus OC43 Not Detected (NotDetected); Coronovirus HKU1,PCR Not Detected (NotDetected); Human Metapneumovirus Not Detected (NotDetected); Influenza A, PCR Not Detected (NotDetected); Influenza AH1, 2009 Not Detected (NotDetected); Influenza AH1, PCR Not Detected (NotDetected); Influenza AH3,PCR Not Detected (NotDetected); Influenza B, PCR Not Detected (NotDetected); Mycoplasma Pneumoniae, PCR Not Detected (NotDetected); Parainfluenza 1, PCR Not Detected (NotDetected); Parainfluenza 2, PCR Not Detected (NotDetected); Parainfluenza 3, PCR Not Detected (NotDetected); Parainfluenza 4, PCR Not Detected (NotDetected); Respiratory Syncytial Virus Not Detected (NotDetected); Rhinovirus/Enterovirus Not Detected (NotDetected)
[2022-02-28] VITALS: BP 130/72; PULSE 82; RESP 18; TEMP 36.6; O2SAT 96
[2022-02-28 01:19] VITALS: PULSE 84; PULSE 86
[2022-02-28 04:00] VITALS: BP 134/66; PULSE 68; RESP 16; TEMP 36.6; O2SAT 94
[2022-02-28 05:00] VITALS: BMI 29.1
[2022-02-28 06:16] VITALS: PULSE 62; PULSE 63; O2SAT 89
[2022-02-28 08:00] VITALS: BP 142/76; PULSE 91; RESP 17; TEMP 36.6; O2SAT 90
--- NOTE | 2022-02-28 08:49 | XR_ITS ---
FINAL REPORT CLINICAL HISTORY: pneumonia COMPARISON: One day prior FINDINGS: A single view of the chest was obtained. The heart is normal in size. The mediastinum is unremarkable. There is persistent mild left lung base atelectasis or pneumonia. No significant change from prior. There is no pleural effusion. There is no pneumothorax. There is no acute osseous abnormality. IMPRESSION: Persistent mild left lung base atelectasis or pneumonia. Reviewed, Interpreted and Dictated by Luis Billingsley III, MD Transcribed by Bela Balderas Authenticated by Luis Billingsley III, MD on 02/28/2022 10:26:36 AM [facility]
--- NOTE | 2022-02-28 09:32 | HMH.PULMCON ---
*Admission Date: 02/27/22 *Reason for consult:: COPD exacerbation *History of present illness: Ms. Sommer is a 71-year-old female with COPD on triple inhaler therapy, long-term oxygen therapy at 2 L recently discharged from the hospital a month ago for COPD exacerbation received levofloxacin at the time presented to the hospital with worsening respiratory distress and found to be in mild hypercarbia with increasing oxygen requirements and pulmonary was called for further management. Patient denies any sick contacts or admitted she was exposed to cold that worsen her symptoms. [facility] History Medical History: Reports:: Anxiety, Asthma, Atherosclerotic Heart Disease, Chronic Obstructive Pulmonary Disease (COPD), Coronary Artery Disease, Hyperlipidemia, Hypertension, Migraine, Urinary Tract Infection Denies:: Cancer, Diabetes Mellitus Type 1, Diabetes Mellitus Type 2, Internal Pacemaker, MRSA *Have you ever received a pneumonia vaccine?: Yes *Have you received a flu vaccine this season?: Yes Other Medical History: Reports: Arthritis, Cataracts, Hoarseness, Hormone Therapy, Hypothyroidism, Sinus Problems, Thyroid Disease Laterality Cases: Left: Lumpectomy Other Surgeries: Yes: No Previous Surgery, Cancer Surgery, Cardiac Catheterization, Colonoscopy, Hysterectomy-Total. No: Pacemaker Amputation: No Fractures: Yes (foot) - *Social History Smoking Status: Current every day smoker Tobacco Type: cigarettes # Packs/Day (cigarettes): 1 Alcohol Intake: never Alcohol Intake Frequency:: 3 or more drinks per day Substance Use Type: denies use *Occupational Status:: retired Housing: assisted Household Members: none *Travel in the last 8 weeks: None - Psychiatric History Pschychiatric History:: Reports:: Anxiety Family Hx:: Asthma, Cancer, Diabetes, Hyperlipidemia, Hypertension, Stroke ROS - Cons Denies body ache(s), Denies chills - Eyes Denies change in vision - ENT Denies nosebleed - Card Reports shortness of breath, Reports shortness of breath with activity - Resp Respiratory: Reports chest congestion, Reports cough, Reports dyspnea on exertion, Denies excessive phlegm production, Reports cough with sputum production, Reports wheezing - GI Gastrointestingal: Denies: abdominal pain - Musk Musculoskeletal: Reports muscle weakness - Psych Denies thoughts of hurting/killing others, Denies thoughts of hurting/killing yourself Meds Home Medications Medication Instructions Recorded Confirmed Type Aspirin [Low Dose Aspirin EC] 81 mg PO DAILY 09/12/21 02/27/22 History Cholecalciferol (Vitamin D3) 25 mcg PO DAILY 09/12/21 02/27/22 History [Vitamin D3 1,000 Unit Cap] Ergocalciferol (Vitamin D2) 1,250 mcg PO WEEKLY 09/12/21 02/27/22 History [Drisdol] Omeprazole 20 mg PO DAILY 09/12/21 02/27/22 History Oxybutynin Chloride 5 mg PO DAILY 09/12/21 02/27/22 History Rosuvastatin Calcium 10 mg PO HS 09/12/21 02/27/22 History Tiotropium [place] [Spiriva 2 inh INHALATION DAILY 09/12/21 02/27/22 History Respimat] Albuterol Sulfate [Albuterol 2 puffs INHALATION Q4H PRN 01/16/22 02/27/22 History Sulfate Hfa] Budesonide/Formoterol Fumarate 2 puffs INHALATION BID 01/16/22 02/27/22 History [Budesonide-Formoterol 160-4.5] Levothyroxine Sodium [Synthroid 50 mcg PO DAILY 01/16/22 02/27/22 History 50mcg (0.05mg) tab] Quetiapine Fumarate 300 mg PO HS 01/16/22 02/27/22 History alprazolam 0.5 mg tablet 0.5 mg PO TID #90 tab 01/25/22 02/27/22 Rx gabapentin 800 mg tablet 800 mg PO TID #90 tab 01/25/22 02/27/22 Rx Escitalopram Oxalate 20 mg PO DAILY 02/27/22 02/27/22 History Hydrocodone/Acetaminophen 1 tab PO TID 02/27/22 02/27/22 History [Hydrocodone-Acetamin 7.5-325] Cefdinir [Omnicef 300mg Capsule] 300 mg PO BID 5 Days #10 cap 02/28/22 Rx predniSONE [Deltasone 20mg 40 mg PO DAILY 5 Days #10 tab 02/28/22 Rx tablet] Allergies Allergy/AdvReac Type Severity Reaction Status Date / Time metronidazole Allergy Unk
--- NOTE | 2022-02-28 10:27 | HMH.HPDC ---
General - General Admission date:: 02/27/22 Discharge date: 02/28/22 *Admission Date: 02/27/22 *Chief complaint: Shortness of breath *History of present illness: 71-year-old female patient presents to the [facility] emergency department via EMS for productive white cough she reports times for several days. She also complains of generalized weakness and shortness of breath. EMS reports patient's oxygen saturation was 70s upon arrival and she did not have her oxygen on. She is on home oxygen at 2 L per nasal cannula as she does have a history of severe COPD. She reports never having COVID, nonvaccinated, and no known exposures. In the emergency department she received ceftriaxone, azithromycin, and methylprednisolone IV [facility] History I have reviewed the patient's past medical history: Yes Medical History: Reports:: Anxiety, Asthma, Atherosclerotic Heart Disease, Chronic Obstructive Pulmonary Disease (COPD), Coronary Artery Disease, Hyperlipidemia, Hypertension, Migraine, Urinary Tract Infection Denies:: Cancer, Diabetes Mellitus Type 1, Diabetes Mellitus Type 2, Internal Pacemaker, MRSA *Have you ever received a pneumonia vaccine?: Yes *Have you received a flu vaccine this season?: Yes Other Medical History: Reports: Arthritis, Cataracts, Hoarseness, Hormone Therapy, Hypothyroidism, Sinus Problems, Thyroid Disease Laterality Cases: Left: Lumpectomy Other Surgeries: Yes: No Previous Surgery, Cancer Surgery, Cardiac Catheterization, Colonoscopy, Hysterectomy-Total. No: Pacemaker Amputation: No Fractures: Yes (foot) - *Social History Smoking Status: Current every day smoker Tobacco Type: cigarettes # Packs/Day (cigarettes): 1 Alcohol Intake: never Alcohol Intake Frequency:: 3 or more drinks per day Substance Use Type: denies use *Occupational Status:: retired Housing: correction Household Members: none *Travel in the last 8 weeks: None - Psychiatric History Pschychiatric History:: Reports:: Anxiety Family Hx:: Asthma, Cancer, Diabetes, Hyperlipidemia, Hypertension, Stroke Review of Systems - Review of Systems Review of systems:: pertinent systems reviewed and negative unless documented below - Constitutional Reports weakness, Denies chills, Denies weight loss - Eyes Denies blurry vision, Denies double vision - ENT Denies dizziness, Denies difficulty swallowing - *Cardiovascular Denies chest pain, Denies chest pain with activity - *Respiratory Reports chest congestion, Reports cough, Reports shortness of breath, Reports shortness of breath with activity, Denies coughing up blood - *Gastrointestinal Denies abdominal pain, Denies difficulty swallowing - *Musculoskeletal Denies joint pain, Denies muscle cramps - Integumentary/Breasts Denies bleeding lesions, Denies yellowing of the skin - *Neurologic Reports abnormal speech, Denies seizure-like activity - Psychiatric Denies lack of enjoyment, Denies anxiety - Endocrine Denies cold intolerance, Denies excessive sweating - Hematologic/Lymphatic Denies easy bleeding, Denies easy bruising - Allergic/Immunologic Denies GI upset with certain foods, Denies tongue swelling Exam Vital signs and Labs for Last 24 Hours: Temp Pulse Resp BP Pulse Ox 97.8 F 91 H 17 142/76 H 90 L 02/28/22 08:00 02/28/22 08:00 02/28/22 08:00 02/28/22 08:00 02/28/22 08:00 Laboratory Results - last 24 hr 02/27/22 09:40: NT-Pro-B Natriuret Pep 11.7 02/27/22 10:40: SARS-CoV-2 (PCR) Not detected, Influenza A Untype (PCR) Not detected, Influenza Type B (PCR) Not detected 02/27/22 11:34: Specimen Source Left radial, O2 % 3 lpm, ABG pH 7.30 L, ABG pCO2 64.0 H, ABG pO2 65.7 L, ABG HCO3 30.9 H, ABG Total CO2 32.9 H, ABG O2 Saturation 92, ABG Base Excess 4.5 H, Jose Test Patient unable 02/27/22 16:30: Chlamy pneumoniae PCR Not detected, Adenovirus (PCR) Not detected, B. pertussis DNA (PCR) Not detected, Coronavirus OC43 (PCR) Not detected, Coronavirus
== END 2022-02-28 12:27 | disposition home or self-care (01) ==
LOC: ER 12:21 → 2ND 12:57
PROVIDERS: Internal Medicine Pulmonary Disease; Admitting Provider Emergency Medicine; Emergency Provider Emergency Medicine; PCP Emergency Medicine; Visit Provider Emergency Medicine
DX: J44.1 Chronic obstructive pulmonary disease with (acute) exacerbation (principal); J96.21 Acute and chronic respiratory failure with hypoxia; J96.22 Acute and chronic respiratory failure with hypercapnia; Z79.899 Other long term (current) drug therapy; E03.9 Hypothyroidism, unspecified; Z99.81 Dependence on supplemental oxygen; F17.210 Nicotine dependence, cigarettes, uncomplicated; I25.10 Atherosclerotic heart disease of native coronary artery without angina pectoris; I10 Essential (primary) hypertension; Z28.310 Unvaccinated for COVID-19; R06.09 Other forms of dyspnea
CPT/HCPCS: G0378; 71045; 80053; 82803; 83605; 83880; 85025; 87040; 87486; 87581; 87632; 87798; 93005; 94640; 96375; 99285; C9803; J0456; J0696; U0003; U0005

== ENCOUNTER 2022-04-11 11:08 | Emergency (ER) | payer MEDICARE, OTHER, SELFPAY ==
[2022-04-11 11:20] VITALS: BP 162/97; PULSE 88; RESP 17; TEMP 36.8; O2SAT 94; BMI 29.7
--- NOTE | 2022-04-11 11:22 | XR_ITS ---
FINAL REPORT CLINICAL HISTORY: cough, sob COMPARISON: February 28, 2022 FINDINGS: A single portable view of the chest was obtained. The heart size and pulmonary vascularity are within normal limits. The mediastinum is within normal limits. There is mild bronchial wall thickening consistent with bronchitis. The bony thorax is intact. IMPRESSION: Mild bronchial wall thickening consistent with bronchitis. Reviewed, Interpreted and Dictated by Luis Billingsley III, MD Transcribed by Delores Day Authenticated and [facility]
--- NOTE | 2022-04-11 11:35 | HMH.EDGENADL ---
ED Disposition Clinical Impression: Community acquired pneumonia Qualifiers: Laterality: right Lung location: lower lobe of lung Qualified Code(s): J18.9 - Pneumonia, unspecified organism COPD (chronic obstructive pulmonary disease) Qualifiers: COPD type: chronic bronchitis Chronic bronchitis type: simple Qualified Code(s): J41.0 - Simple chronic bronchitis Disposition: Home, Self-Care Condition on Discharge: Good Instructions: Pneumonia-Adult Prescriptions: Doxycycline Monohydrate [Doxycycline Cata[place] 100mg Tab] 100 mg PO Q12 #20 tab Transmission Status: Pending to [facility] methylPREDNISolone [Medrol 4mg tab] 4 mg PO DIRECTED #21 tab Transmission Status: Pending to [facility] Referrals: Provider,Referral, [Primary Care Provider] - - Critical Care Critical Care Time: No Attestation: On 04/11/22, the high probability of a clinically significant, sudden or life threatening deterioration of the following system(s) required my full and direct attention, intervention and personal management. The time I documented below is in addition to time spent performing reported procedures but includes the following listed in this critical care notation. Medical Decision Making - Medical Records Medical records reviewed: Yes: I reviewed the patient's medical records. - Alex Inquiry Pt receiving controlled substance: No Vital Signs: 04/11/22 11:20 04/11/22 11:55 04/11/22 12:01 Temperature 98.3 F Temperature Source Oral Pulse Rate 73 75 Pulse Rate [Left Radial] 88 Respiratory Rate 17 18 Blood Pressure 121/80 Blood Pressure [Right Arm] 162/97 H Blood Pressure Mean 101 Blood Pressure Mean [Right Arm] 118 02 Sat by Pulse Oximetry 94 L 96 Oxygen Delivery Method Room Air 04/11/22 12:31 Temperature Temperature Source Pulse Rate 76 Pulse Rate [Left Radial] Respiratory Rate 18 Blood Pressure 126/86 Blood Pressure [Right Arm] Blood Pressure Mean 91 Blood Pressure Mean [Right Arm] 02 Sat by Pulse Oximetry 94 L Oxygen Delivery Method - Lab Data Lab Results 04/11/22 11:58: WBC 10.9 H, RBC 4.82, Hgb 14.0, Hct 42.5, MCV 88.2, MCH 29.0, MCHC 32.9, RDW 16.2, Plt Count 256, MPV 8.1, Neut % (Auto) 76.3, Lymph % (Auto) 16.2, [place] % (Auto) 5.8, Eos % (Auto) 0.8, Baso % (Auto) 0.8, Neut # (Auto) 8.4 H, Lymph # (Auto) 1.8, [place] # (Auto) 0.6, Eos # (Auto) 0.1, Baso # (Auto) 0.1 04/11/22 11:58: Sodium 142, Potassium 3.6, Chloride 105, Carbon Dioxide 33 H, Anion Gap 7.6, BUN 3 L, Creatinine 0.40 L, Estimated Creat Clear 69, Estimated GFR 157, Est GFR ( Amer) 190, Glucose 108 H, Calcium 9.3, Total Bilirubin 0.2, AST 22, ALT 16, Alkaline Phosphatase 62, Total Protein 6.5, Albumin 3.9, Globulin 2.6, Albumin/Globulin Ratio 1.5 Result diagrams: 04/11/22 11:58 04/11/22 11:58 Orders (Tests/Meds): ED MEDICATIONS Discontinued Medications Generic Name Dose Route Start Last Admin Trade Name Freq PRN Reason Stop Dose Admin Albuterol/Ipratropium 3 ml 04/11/22 11:22 04/11/22 11:55 Ipratropium/Albuterol 3 Ml Neb IH 04/11/22 11:23 3 ml ONCE ONE Administration Methylprednisolone Sodium Succinate 125 mg 04/11/22 11:23 04/11/22 11:48 Methylprednisolone Sod Succ 125mg Vial IV 04/11/22 11:24 125 mg ONCE ONE Administration ORDERS Category Date Time Status XR chest portable Stat Exams 04/11/22 11:22 Taken - Radiology Data #1 Image(s): Chest Image Reviewed: Yes I reviewed the patient's radiology results, Yes I reviewed the patient's radiology image, Yes I have reviewed radiologist's interpretation Chronic emphysematous changes, right lower lobe infiltrate - Reevaluation(s) Time: 12:50 Reevaluation #1: Trying to figure overOn reevaluation, the patient is feeling better. Findings consistent with COPD exacerbation and pneumonia. Patient is saturating well on supplemental oxygen. No evidence of respiratory distress. No hypoxia.
--- NOTE | 2022-04-11 11:45 | PC.NURSE ---
respiratory at bs doing duoneb
--- NOTE | 2022-04-11 11:48 | PC.NURSE ---
respiratory aware of duoneb needed for pt
[2022-04-11 11:55] VITALS: PULSE 73; PULSE 76
[2022-04-11 12:01] VITALS: BP 121/80; PULSE 75; RESP 18; O2SAT 96
[2022-04-11 12:12] LABS: Basophils # 0.1 K/mm3 (0-0.2); Basophils % 0.8 % (0.1-2.0); Eosinophils # 0.1 K/mm3 (0.0-0.4); Eosinophils % 0.8 % (0.1-12.0); Hematocrit 42.5 % (37.0-47.0); Lymphocytes # 1.8 K/mm3 (0.7-4.5); Lymphocytes % 16.2 % (10-50); Mean Corpuscular HGB Conc 32.9 g/dL (31.8-35.4); Mean Corpuscular Volume 88.2 fl (81-99); Mean Platelet Volume 8.1 fl (7.4-10.4); Monocytes # 0.6 K/mm3 (0.1-1.0); Monocytes % 5.8 % (1.7-9.3); Neutrophils # 8.4 K/mm3 (1.8-7.8); Neutrophils % 76.3 % (37.0-80.0); Platelet Count 256 K/mm3 (142-424); Red Blood Count 4.82 M/mm3 (4.20-5.40); Red Cell Distribution Width 16.2 % (11.5-17.5); White Blood Count 10.9 K/mm3 (4.8-10.8)
[2022-04-11 12:15] LABS: Chloride 105 mmol/L (98-107); Potassium 3.6 mmoL/L (3.5-5.1); Sodium 142 mmol/L (136-145)
[2022-04-11 12:17] LABS: Blood Urea Nitrogen 3 mg/dl (7-17); Creatinine Clearance Estimated 69 mL/min (50-200); Estimated Glomerular Filt Rate 157 ml/min (>60); GFR (African American) 190 ML/MIN (>60)
[2022-04-11 12:18] LABS: Alanine Aminotransferase 16 U/L (12-78); Albumin Level 3.9 g/dl (3.5-5.0); Albumin/Globulin Ratio 1.5 (1.1-1.8); Alkaline Phosphatase 62 U/L (38-126); Anion Gap 7.6 mEq/L (5-15); Aspartate Amino Transferase 22 U/L (14-36); Bilirubin,Total 0.2 mg/dl (0.2-1.3); Calcium 9.3 mg/dl (8.4-10.2); Carbon Dioxide 33 mmol/L (22.0-30.0); Globulin 2.6 g/dL (1.3-3.2); Glucose 108 mg/dl (74-100); Total Protein,Serum 6.5 g/dl (6.3-8.2)
[2022-04-11 12:31] VITALS: BP 126/86; PULSE 76; RESP 18; O2SAT 94
--- NOTE | 2022-04-11 13:37 | PC.NURSE ---
called pt son per pt request to pick her up for discharge. pt's son states he's not picking her up because she was supposed to be admitted to [facility]. explained to pt's son that there was not a transfer facilitated and the pt would have to see primary care for placement. son states he spoke to her pcp about transfer. this nurse called pt's pcp and he stated he was not aware of the situation and had not spoke to the pt or family. care management contacted. awaiting response.
[2022-04-11 13:38] LABS: Microscopic, Urine URINE MICROSCOPIC (MICROSCOPIC)
[2022-04-11 13:41] LABS: Appearance,Urine SL CLOUDY (Clear); Bilirubin,Urine Negative (Negative); Blood, Urine 1+ (Negative); Color,Urine YELLOW (Yellow); Glucose,Urine (UA) Negative (Negative); Ketones,Urine Negative (Negative); Leukocyte Esterase,Urine 3+ (Negative); Nitrate,Urine POSITIVE (Negative); Protein,Urine Negative (Negative); Specific Gravity, Urine <= 1.005 (1.005-1.030); Urobilinogen,Urine 0.2 EU/dl (0.2)
[2022-04-11 13:54] LABS: Amorphous Sediment,Urine Trace /lpf; Bacteria,Urine 3+ /lpf; RBC,Urine Occasional #/hpf (0-3); Squamous Epithelial Cell,Urine Occasional #/hpf (0-5)
--- NOTE | 2022-04-11 13:57 | SW/DCPLANNER ---
Addendum entered by Dinorah Reardon 04/11/22 15:00: Geeta w/ [facility] stated that services will begin for this patient. Original Note: I received a call from ED nurse (Lien) stating that she spoke with patient's son (Frankie) is interested in placement for this patient. Frankie stated that he has confirmed placement at [facility] w/ Sania. I called [facility] and office stated that this patient does NOT have a secure bed. I did speak with patient in ED today and she stated that she is not interested in placement. I offered home health services and patient stated not till I feel better . I explained to patient that the goal of home health would be to help make her feel better. Patient is agreeable to home health services at this time. Patient did not have a preference for a home health agency: I will fax to [facility] at this time. Son stated that he is fine with patient returning home at this time. [facility] will be set up to transport this patient home.
--- NOTE | 2022-04-11 14:12 | CARE MANAGER ---
Contacted [facility] and arranged for transportation home.
[2022-04-11 15:12] VITALS: BP 130/81; PULSE 72; RESP 17; TEMP 36.8; O2SAT 97
== END 2022-04-11 16:26 | disposition home or self-care (01) ==
PROVIDERS: Emergency Provider Emergency Medicine
DX: J18.9 Pneumonia, unspecified organism (principal); J41.0 Simple chronic bronchitis; Z99.81 Dependence on supplemental oxygen; Z79.82 Long term (current) use of aspirin; Z79.899 Other long term (current) drug therapy; Z88.8 Allergy status to other drugs, medicaments and biological substances; I25.10 Atherosclerotic heart disease of native coronary artery without angina pectoris; E78.5 Hyperlipidemia, unspecified; I10 Essential (primary) hypertension; G43.909 Migraine, unspecified, not intractable, without status migrainosus; Z72.0 Tobacco use
CPT/HCPCS: 71045; 80053; 81001; 85025; 87077; 87086; 87088; 96374; 99284

== ENCOUNTER → 2022-06-06 05:59 | Outpatient (CLI) | payer MEDICARE, OTHER, SELFPAY ==
[2022-06-05 17:55] LABS: Benzodiazepines Screen,Urine Positive ng/ml (<200)
[2022-06-05 17:56] LABS: Amphetamine/Metha Screen,Urine Negative ng/ml (<1000); Barbiturates Screen,Urine Negative ng/ml (<200)
[2022-06-05 17:57] LABS: Cannabinoid Screen,Urine Negative ng/ml (<50)
[2022-06-05 17:58] LABS: Cocaine Screen,Urine Negative ng/ml (<300); Methadone Screen,Urine Negative ng/ml (<300)
[2022-06-05 17:59] LABS: Opiate Screen,Urine Positive ng/ml (<300); Phencyclidine Screen,Urine Negative ng/ml (<25)
== END ==
PROVIDERS: PCP Nurse Practitioner Family; Visit Provider Nurse Practitioner Family
DX: G89.29 Other chronic pain (principal); M54.50 Low back pain, unspecified
CPT/HCPCS: 80305

== ENCOUNTER 2022-06-11 21:50 | Emergency (ER) | payer MEDICARE, OTHER, SELFPAY ==
[2022-06-11 21:44] VITALS: BP 142/66; PULSE 87; RESP 22; TEMP 37.1; O2SAT 94; BMI 28.1
--- NOTE | 2022-06-11 21:45 | CT_ITS ---
PROCEDURE INFORMATION: Exam: CT Head Without Contrast Exam date and time: 06/11/2022 10:07 PM Age: 71 years old Clinical indication: Injury or trauma; Fall; Blunt trauma (contusions or hematomas); Consciousness not specified; Injury date: 06/11/22; Additional info: Fall, head injury TECHNIQUE: Imaging protocol: Computed tomography of the head without contrast. Radiation optimization: All CT scans at this facility use at least one of these dose optimization techniques: automated exposure control; mA and/or kV adjustment per patient size (includes targeted exams where dose is matched to clinical indication); or iterative reconstruction. COMPARISON: No prior studies for comparison. FINDINGS: Brain: Age-related atrophy and chronic white matter ischemic changes, with no evidence of an acute intracranial abnormality. No hemorrhage, mass effect or midline shift. Cerebral ventricles: No ventriculomegaly. Paranasal sinuses: Visualized sinuses are unremarkable. No fluid levels. Mastoid air cells: Visualized mastoid air cells are well aerated. Bones/joints: No acute fracture. Soft tissues: No acute changes IMPRESSION: 1. Age-related atrophy and chronic white matter ischemic changes, with no evidence of an acute intracranial abnormality. 2. No hemorrhage, mass effect or midline shift.
--- NOTE | 2022-06-11 21:45 | XR_ITS ---
PROCEDURE INFORMATION: Exam: XR Chest Exam date and time: 06/11/2022 10:24 PM Age: 71 years old Clinical indication: Cough TECHNIQUE: Imaging protocol: Radiologic exam of the chest. Views: 1 view. COMPARISON: CR XR CHEST PORTABLE 04/11/2022 11:28 AM FINDINGS: Lungs: Bilateral hyperinflation is present. Atelectatic changes noted within both lung bases. No focal pneumonia or pneumothorax. Pleural spaces: There are no pleural effusions present. Heart/Mediastinum: Unremarkable. No cardiomegaly. Bones/joints: Unremarkable. IMPRESSION: 1. Bilateral hyperinflation is present. 2. Atelectatic changes noted within both lung bases. 3. No focal pneumonia or pneumothorax.
--- NOTE | 2022-06-11 21:46 | HMH.EDGENADL ---
ED Disposition Clinical Impression: Fall Qualifiers: Encounter type: sequela Qualified Code(s): W19.XXXS - Unspecified fall, sequela Closed head injury Qualifiers: Encounter type: initial encounter Qualified Code(s): S09.90XA - Unspecified injury of head, initial encounter Disposition: Home, Self-Care Condition on Discharge: Fair Instructions: How to Prevent Falls, DI for Closed Head Injury Additional Instructions: You have been evaluated for fall, closed head injury. Please use care when standing and walking. Follow-up with your primary care doctor in 1 to 2 days for symptom recheck. Return to the emergency department at once for any new or worsening symptoms Referrals: Kin Colindres APRN [Primary Care Provider] - Time of Disposition: 22:53 - Critical Care Critical Care Time: No Attestation: On , the high probability of a clinically significant, sudden or life threatening deterioration of the following system(s) required my full and direct attention, intervention and personal management. The time I documented below is in addition to time spent performing reported procedures but includes the following listed in this critical care notation. Medical Decision Making - Medical Records Medical records reviewed: Yes: I reviewed the patient's medical records. - Alex Inquiry Pt receiving controlled substance: No Vital Signs: 06/11/22 21:44 Temperature 98.7 F Temperature Source Oral Pulse Rate [Right] 87 Respiratory Rate 22 Blood Pressure [Right Arm] 142/66 H Blood Pressure Mean [Right Arm] 91 02 Sat by Pulse Oximetry 94 L Oxygen Delivery Method Nasal Cannula Oxygen Flow Rate (LPM) 2 - Lab Data Lab Results 06/11/22 21:45: VBG pH 7.33, VBG pCO2 54.5 H, VBG pO2 84.3 H, VBG HCO3 28.0, VBG Total CO2 29.6 H, VBG O2 Saturation 96.2 H, VBG Base Excess 2.0 06/11/22 22:00: WBC 14.5 H, RBC 5.04, Hgb 14.8, Hct 47.3 H, MCV 93.9, MCH 29.3, MCHC 31.2 L, RDW 15.6, Plt Count 290, MPV 8.4, Neut % (Auto) 65.2, Lymph % (Auto) 26.0, [place] % (Auto) 6.0, Eos % (Auto) 1.6, Baso % (Auto) 1.2, Neut # (Auto) 9.4 H, Lymph # (Auto) 3.8, [place] # (Auto) 0.9, Eos # (Auto) 0.2, Baso # (Auto) 0.2 06/11/22 22:00: Sodium 141, Potassium 3.2 L, Chloride 107, Carbon Dioxide 29, Anion Gap 8.2, BUN 5 L, Creatinine 0.50 L, Estimated Creat Clear 66, Estimated GFR 121, Est GFR ( Amer) 147, Glucose 123 H, Calcium 8.8, Total Bilirubin < 0.1 L, AST 23, ALT 14, Alkaline Phosphatase 69, Total Protein 6.2 L, Albumin 3.9, Globulin 2.3, Albumin/Globulin Ratio 1.7 06/11/22 22:00: SARS-CoV-2 (PCR) Not detected, Influenza A Untype (PCR) Not detected, Influenza Type B (PCR) Not detected Result diagrams: 06/11/22 22:00 06/11/22 22:00 Orders (Tests/Meds): ORDERS Category Date Time Status UA [Urinalysis and Microscopic] Stat Lab 06/11/22 22:46 Received ECG Request by /Valerie Stat Y 06/11/22 21:45 Ordered - CT Data CT Scan: Head Time Received: 22:[address] Reviewed: Yes: I have reviewed the patient's CT results, I have viewed the radiologist's interpretation Preliminary Findings: Normal/NAD Findings Narrative: IMPRESSION: 1. Age-related atrophy and chronic white matter ischemic changes, with no evidence of an acute intracranial abnormality. 2. No hemorrhage, mass effect or midline shif Medical Decision Narrative: In summary this is a 71-year-old female with history of oxygen dependent COPD presenting to the emergency department with head injury after a fall. Patient clinically stable on arrival. Vital signs within normal limits. Will obtain CBC, CMP, VBG, urinalysis, chest x-ray, EKG, noncontrast head CT Initial laboratory results are reassuring. She has a leukocytosis of 14,000. No anemia. No kidney injury. VBG shows slight CO2 retention at 54. There is no acidosis. COVID and influenza testing negative. Noncontrast head CT shows age-related atrophy. No skull fracture. No intracranial bleed. Chest x-ray unremarkable.
[2022-06-11 21:49] VITALS: BMI 28.1
--- NOTE | 2022-06-11 22:06 | ECG_ITS ---
APPROVED REPORT Exam: Resting ECG HR:92 bpm ECG Measurements Heart Rate [address] 138 P 76 QRSd 94 QRS 76 QT 269 T -30 QTc 318 Conclusion SINUS RHYTHM NONSPECIFIC T-WAVE ABNORMALITY ABNORMAL ECG UNCONFIRMED REPORT Electronically signed by : Janes Delgado MD 06/12/2022 21:02:14
[2022-06-11 22:08] LABS: Coronavirus 19, PCR Not Detected (NotDetected); Influenza A, PCR Not Detected (NotDetected); Influenza B, PCR Not Detected (NotDetected)
[2022-06-11 22:10] LABS: Basophils # 0.2 K/mm3 (0-0.2); Basophils % 1.2 % (0.1-2.0); Eosinophils # 0.2 K/mm3 (0.0-0.4); Eosinophils % 1.6 % (0.1-12.0); Hematocrit 47.3 % (37.0-47.0); Hemoglobin 14.8 g/dL (12.2-16.2); Lymphocytes # 3.8 K/mm3 (0.7-4.5); Mean Corpuscular HGB Conc 31.2 g/dL (31.8-35.4); Mean Corpuscular Hemoglobin 29.3 pg (27.0-31.2); Mean Corpuscular Volume 93.9 fl (81-99); Mean Platelet Volume 8.4 fl (7.4-10.4); Monocytes # 0.9 K/mm3 (0.1-1.0); Neutrophils # 9.4 K/mm3 (1.8-7.8); Neutrophils % 65.2 % (37.0-80.0); Platelet Count 290 K/mm3 (142-424); Red Blood Count 5.04 M/mm3 (4.20-5.40); Red Cell Distribution Width 15.6 % (11.5-17.5); White Blood Count 14.5 K/mm3 (4.8-10.8)
[2022-06-11 22:17] LABS: VBG Oxygen Saturation 96.2 % (50-70); VBG PH 7.33 mmol/L (7.31-7.41); VBG PO2 84.3 mmol/L (28-40); VBG Total CO2 29.6 mmol/L (23-27)
--- NOTE | 2022-06-11 22:18 | PC.NURSE ---
notified on critical CO2 of 54.5
--- NOTE | 2022-06-11 22:18 | PC.NURSE ---
pt return from ct
[2022-06-11 22:20] LABS: VBG PCO2 54.5 mmol/L (35-51)
[2022-06-11 22:20] LABS: Alanine Aminotransferase 14 U/L (12-78); Albumin Level 3.9 g/dl (3.5-5.0); Albumin/Globulin Ratio 1.7 (1.1-1.8); Alkaline Phosphatase 69 U/L (38-126); Anion Gap 8.2 mEq/L (5-15); Aspartate Amino Transferase 23 U/L (14-36); Bilirubin,Total < 0.1 mg/dl (0.2-1.3); Blood Urea Nitrogen 5 mg/dl (7-17); Calcium 8.8 mg/dl (8.4-10.2); Carbon Dioxide 29 mmol/L (22.0-30.0); Chloride 107 mmol/L (98-107); Creatinine Clearance Estimated 66 mL/min (50-200); Estimated Glomerular Filt Rate 121 ml/min (>60); GFR (African American) 147 ML/MIN (>60); Globulin 2.3 g/dL (1.3-3.2); Glucose 123 mg/dl (74-100); Potassium 3.2 mmoL/L (3.5-5.1); Sodium 141 mmol/L (136-145); Total Protein,Serum 6.2 g/dl (6.3-8.2)
--- NOTE | 2022-06-11 22:47 | PC.NURSE ---
Cath UA obtained at this time. also updated pt that we are awaiting scan results
[2022-06-11 22:50] LABS: Microscopic, Urine URINE MICROSCOPIC (MICROSCOPIC)
[2022-06-11 22:52] LABS: Appearance,Urine CLEAR (Clear); Bilirubin,Urine Negative (Negative); Blood, Urine Negative (Negative); Color,Urine YELLOW (Yellow); Glucose,Urine (UA) Negative (Negative); Ketones,Urine Negative (Negative); Leukocyte Esterase,Urine Negative (Negative); Nitrate,Urine POSITIVE (Negative); Protein,Urine Negative (Negative); Urobilinogen,Urine 0.2 EU/dl (0.2)
--- NOTE | 2022-06-11 22:53 | XR_ITS ---
PROCEDURE INFORMATION: Exam: XR Left Toe(s) Exam date and time: 06/11/2022 11:07 PM Age: 71 years old Clinical indication: Pain; Patient HX: Bruising noted to left 3rd-5th digits left toes S/P fall; Additional info: Fall, pain TECHNIQUE: Imaging protocol: Radiologic exam of the Left toes. Views: Minimum 2 views. COMPARISON: No relevant prior studies available. FINDINGS: Bones/joints: There is cortical irregularity involving the distal aspect of the 4th proximal phalanx concerning for a nondisplaced fracture. Obliquely oriented hairline fracture of the 3rd proximal phalanx mid aspect. Avulsion fracture involving the base of the 5th proximal phalanx. No additional fracture or dislocation. Soft tissues: Normal. IMPRESSION: 1. Nondisplaced fracture of the distal aspect of the 4th proximal phalanx. No intra-articular extension. 2. Obliquely oriented hairline fracture of the 3rd proximal phalanx. 3. Avulsion fracture base of the 5th proximal phalanx. Intra-articular extension into the metatarsophalangeal joint.
[2022-06-11 23:07] LABS: WBC,Urine Occasional #/hpf (0-3)
[2022-06-11 23:08] LABS: Bacteria,Urine 2+ /lpf
--- NOTE | 2022-06-11 23:43 | PC.NURSE ---
pt ambulated around room at this time
[2022-06-12 00:31] VITALS: BP 139/78; PULSE 81; RESP 18; TEMP 37.1; O2SAT 94
== END 2022-06-12 00:32 | disposition home or self-care (01) ==
PROVIDERS: Emergency Provider Emergency Medicine; PCP Nurse Practitioner Family
DX: S09.90XA Unspecified injury of head, initial encounter (principal); W19.XXXS Unspecified fall, sequela; Z79.82 Long term (current) use of aspirin; Z79.899 Other long term (current) drug therapy; Z88.1 Allergy status to other antibiotic agents; Z88.8 Allergy status to other drugs, medicaments and biological substances; J44.9 Chronic obstructive pulmonary disease, unspecified; Z99.81 Dependence on supplemental oxygen; I25.10 Atherosclerotic heart disease of native coronary artery without angina pectoris; I10 Essential (primary) hypertension; E78.5 Hyperlipidemia, unspecified; F41.9 Anxiety disorder, unspecified; M19.90 Unspecified osteoarthritis, unspecified site; Z72.0 Tobacco use
CPT/HCPCS: 70450; 71045; 73660; 80053; 81001; 82803; 85025; 87086; 87088; 87186; 93005; 99284; C9803; U0003; U0005

== ENCOUNTER 2022-06-19 17:57 | Emergency (ER) | payer MEDICARE, OTHER, SELFPAY ==
[2022-06-19 17:47] VITALS: BP 128/63; PULSE 86; RESP 16; TEMP 36.7; O2SAT 94; BMI 29.7
--- NOTE | 2022-06-19 17:52 | CT_ITS ---
PROCEDURE INFORMATION: Exam: CT Thoracic Spine Without Contrast Exam date and time: 06/19/2022 6:26 PM Age: 71 years old Clinical indication: Injury or trauma; Additional info: Fall, luq and spinal tenderness TECHNIQUE: Imaging protocol: Computed tomography of the thoracic spine without contrast. Radiation optimization: All CT scans at this facility use at least one of these dose optimization techniques: automated exposure control; mA and/or kV adjustment per patient size (includes targeted exams where dose is matched to clinical indication); or iterative reconstruction. COMPARISON: CT CERVICAL SPINE WO CON 06/19/2022 6:23 PM FINDINGS: Bones/joints: Age-indeterminate T6 superior endplate deformity. This is most likely chronic. Discs/Spinal canal/Neural foramina: No significant disc protrusion. No severe spinal canal stenosis. No significant neural foraminal narrowing. Soft tissues: Unremarkable. Other findings: Please see separate report for CT chest. IMPRESSION: Age-indeterminate T6 superior endplate deformity. This is most likely chronic.
--- NOTE | 2022-06-19 17:52 | CT_ITS ---
PROCEDURE INFORMATION: Exam: CTA Abdomen and Pelvis With Contrast Exam date and time: 06/19/2022 6:33 PM Age: 71 years old Clinical indication: Injury or trauma; Fall; Additional info: Fall, luq and spinal tenderness TECHNIQUE: Imaging protocol: Computed tomographic angiography of the abdomen and pelvis with contrast. 3D rendering (Not supervised by radiologist): MIP and/or 3D reconstructed images were created by the technologist. Radiation optimization: All CT scans at this facility use at least one of these dose optimization techniques: automated exposure control; mA and/or kV adjustment per patient size (includes targeted exams where dose is matched to clinical indication); or iterative reconstruction. Contrast material: ISOVUE 370; Contrast volume: 100 ml; Contrast route: INTRAVENOUS (IV); COMPARISON: CT ABDOMEN PELVIS W CON 09/14/2021 12:48 PM FINDINGS: Aorta: No aortic aneurysm. No aortic dissection. Celiac trunk and mesenteric arteries: Replaced left hepatic artery from the left gastric artery. 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 There are collateral arteries in the abdomen from the superior mesenteric artery. Renal arteries: No occlusion or significant stenosis. Right iliac arteries: No occlusion or significant stenosis. Left iliac arteries: No occlusion or significant stenosis. Other arteries: There is moderate intra arterial plaque/thrombus in the infrarenal abdominal aorta. Liver: No mass. Gallbladder and bile ducts: Cholelithiasis. Pancreas: Unremarkable. No mass. No ductal dilation. Spleen: Unremarkable. No splenomegaly. Adrenal glands: Unremarkable. No mass. Kidneys and ureters: Unremarkable. No solid mass. No hydronephrosis. Stomach and bowel: Mild sigmoid diverticulosis without diverticulitis. Appendix: Unremarkable appendix. Intraperitoneal space: Unremarkable. No free air. No significant fluid collection. Lymph nodes: Unremarkable. No enlarged lymph nodes. Urinary bladder: Unremarkable. No mass. Reproductive: Status post hysterectomy. Bones/joints: No acute fracture. Soft tissues: Tiny fat containing umbilical hernia. Other findings: Please see separate report for CT chest. IMPRESSION: 1. No acute intra-abdominal or intrapelvic organ injury. 2. Cholelithiasis.
--- NOTE | 2022-06-19 17:52 | CT_ITS ---
PROCEDURE INFORMATION: Exam: CT Cervical Spine Without Contrast Exam date and time: 06/19/2022 6:23 PM Age: 71 years old Clinical indication: Injury or trauma; Additional info: Fall, luq and spinal tenderness TECHNIQUE: Imaging protocol: Computed tomography of the cervical spine without contrast. Radiation optimization: All CT scans at this facility use at least one of these dose optimization techniques: automated exposure control; mA and/or kV adjustment per patient size (includes targeted exams where dose is matched to clinical indication); or iterative reconstruction. COMPARISON: CT HEAD/BRAIN WO CON 06/11/2022 10:07 PM FINDINGS: Bones/joints: No acute fracture. Normal alignment. Discs/Spinal canal/Neural foramina: Mild disc space narrowing and small endplate osteophyte at C6-C7. No significant disc protrusion. No severe spinal canal stenosis. No significant neural foraminal narrowing. Lungs: Lung apices are normal. Soft tissues: Unremarkable. IMPRESSION: No acute findings.
--- NOTE | 2022-06-19 17:52 | CT_ITS ---
PROCEDURE INFORMATION: Exam: CT Lumbar Spine Without Contrast Exam date and time: 06/19/2022 6:29 PM Age: 71 years old Clinical indication: Injury or trauma; Additional info: Fall, luq and spinal tenderness TECHNIQUE: Imaging protocol: Computed tomography of the lumbar spine without contrast. Radiation optimization: All CT scans at this facility use at least one of these dose optimization techniques: automated exposure control; mA and/or kV adjustment per patient size (includes targeted exams where dose is matched to clinical indication); or iterative reconstruction. COMPARISON: CT THORACIC SPINE WO CON 06/19/2022 6:26 PM FINDINGS: Bones/joints: No acute fracture. Normal alignment. Discs/Spinal canal/Neural foramina: No significant disc protrusion. No severe spinal canal stenosis. No significant neural foraminal narrowing. Soft tissues: Unremarkable. Other findings: Please see separate report for abdomen/pelvis. IMPRESSION: No acute fracture or malalignment of the lumbar spine.
--- NOTE | 2022-06-19 17:52 | CT_ITS ---
PROCEDURE INFORMATION: Exam: CT Head Without Contrast Exam date and time: 06/19/2022 6:23 PM Age: 71 years old Clinical indication: Injury or trauma; Additional info: Fall, luq and spinal tenderness TECHNIQUE: Imaging protocol: Computed tomography of the head without contrast. Radiation optimization: All CT scans at this facility use at least one of these dose optimization techniques: automated exposure control; mA and/or kV adjustment per patient size (includes targeted exams where dose is matched to clinical indication); or iterative reconstruction. COMPARISON: CT HEAD/BRAIN WO CON 06/11/2022 10:07 PM FINDINGS: Brain: There is age-appropriate cerebral atrophy. Moderate changes of chronic small vessel ischemia within the cerebral white matter regions bilaterally. No acute infarct or hemorrhage. Cerebral ventricles: No ventriculomegaly. Paranasal sinuses: Visualized sinuses are unremarkable. No fluid levels. Mastoid air cells: Visualized mastoid air cells are well aerated. Bones/joints: Unremarkable. No acute fracture. Soft tissues: Unremarkable. IMPRESSION: No acute intracranial abnormality.
--- NOTE | 2022-06-19 17:52 | CT_ITS ---
PROCEDURE INFORMATION: Exam: CTA Chest With Contrast Exam date and time: 06/19/2022 6:33 PM Age: 71 years old Clinical indication: Injury or trauma; Additional info: Fall, luq and spinal tenderness TECHNIQUE: Imaging protocol: Computed tomographic angiography of the chest with contrast. 3D rendering (Not supervised by radiologist): MIP and/or 3D reconstructed images were created by the technologist. Radiation optimization: All CT scans at this facility use at least one of these dose optimization techniques: automated exposure control; mA and/or kV adjustment per patient size (includes targeted exams where dose is matched to clinical indication); or iterative reconstruction. Contrast material: ISOVUE 370; Contrast volume: 100 ml; Contrast route: INTRAVENOUS (IV); COMPARISON: CT CHEST W CON 09/28/2021 9:46 AM FINDINGS: Pulmonary arteries: Normal. No pulmonary emboli. Aorta: The aorta demonstrates moderate atherosclerotic disease. Lungs: Moderate centrilobular emphysema. Mild scarring and atelectasis in the lower lungs. Unchanged right upper lobe 12 mm spiculated nodule image 40 series 5. Unchanged 7 mm right upper lobe nodule image 38 series 5. Unchanged cluster of left upper lobe nodules on images 43 and 50 series 5. Previously seen left lower lobe nodule cluster has essentially resolved. No significant change in right lower lobe nodule cluster image 50 series 5. There is a new 11 mm right lower lobe nodule image 68 series 5. Unchanged 7 mm right middle lobe ground-glass nodule. Pleural spaces: Unremarkable. No pneumothorax. No pleural effusion. Heart: Unremarkable. No cardiomegaly. No pericardial effusion. Lymph nodes: Unremarkable. No enlarged lymph nodes. Bones/joints: Unremarkable. No acute fracture. Soft tissues: There is a 1.6 cm spiculated soft tissue nodule in the left breast that was not clearly present on prior CT. Other findings: Please see separate report for abdomen/pelvis. IMPRESSION: 1. No acute intrathoracic organ injury. 2. There is a 1.6 cm spiculated soft tissue nodule in the left breast that was not clearly present on prior CT. Recommend bilateral diagnostic mammography and left breast ultrasound to exclude malignancy. 3. There is a new 11 mm right lower lobe nodule image 68 series 5. For both low risk and high risk patients, consider CT Chest at 3 months, PET/CT, or biopsy. (Reference: Mauricio) 4. Unchanged 7 mm right middle lobe ground-glass nodule. Continue to direct attention to this on follow-up studies as adenocarcinoma in situ is on the differential for this appearance. 5. THIS REPORT CONTAINS FINDINGS THAT MAY BE CRITICAL TO PATIENT CARE. The findings were verbally communicated via telephone conference with Doug Sanchez at 7:22 PM EDT on 06/19/2022. The findings were acknowledged and understood. REFERENCES: Mauricio Robert, et al. Guidelines for Management of Incidental Pulmonary Nodules Detected on CT Images: From the Fleischner Society 2017. Radiology. 2017;284(1):228-243.
--- NOTE | 2022-06-19 17:56 | XR_ITS ---
PROCEDURE INFORMATION: Exam: XR Right Foot Exam date and time: 06/19/2022 6:56 PM Age: 71 years old Clinical indication: Injury or trauma; Fall; Blunt trauma; Foot; Right; Additional info: Fall, pain TECHNIQUE: Imaging protocol: Radiologic exam of the Right foot. Views: 1 or 2 views. COMPARISON: No relevant prior studies available. FINDINGS: Bones/joints: Hallux valgus deformity. Irregular appearance of the distal phalanx of the 4th toe, possibly artifact. Multiple hammertoe deformities. Soft tissues: Normal. IMPRESSION: Irregular appearance of the distal phalanx of the 4th toe, possibly artifact. Please correlate with point tenderness. Otherwise, no acute fracture or dislocation.
--- NOTE | 2022-06-19 17:57 | HMH.EDGENADL ---
ED Disposition Clinical Impression: Lung nodule, Breast nodule, Toe pain, left Disposition: Home, Self-Care Condition on Discharge: Good Additional Instructions: At this time it was felt you are safe to be discharged from the emergency department. If new or worsening symptoms please do not hesitate to return for continued evaluation. Please follow-up with your family doctor for further evaluation of your abnormal imaging (nodules) of your left breast and lung. - Critical Care Critical Care Time: No Attestation: On , the high probability of a clinically significant, sudden or life threatening deterioration of the following system(s) required my full and direct attention, intervention and personal management. The time I documented below is in addition to time spent performing reported procedures but includes the following listed in this critical care notation. Medical Decision Making - Alex Inquiry Pt receiving controlled substance: No Vital Signs: 06/19/22 17:47 Temperature 98.1 F Temperature Source Oral Pulse Rate [Right Radial] 86 Respiratory Rate 16 Blood Pressure [Right Arm] 128/63 Blood Pressure Mean [Right Arm] 84 Blood Pressure Source [Right Arm] Automatic Cuff Blood Pressure Position [Right Arm] Sitting 02 Sat by Pulse Oximetry 94 L Oxygen Delivery Method Nasal Cannula Oxygen Flow Rate (LPM) 3 - Lab Data Lab Results 06/19/22 18:00: WBC 13.9 H, RBC 4.88, Hgb 14.1, Hct 45.6, MCV 93.4, MCH 28.9, MCHC 30.9 L, RDW 15.8, Plt Count 318, MPV 8.0, Neut % (Auto) 66.4, Lymph % (Auto) 23.6, [place] % (Auto) 7.4, Eos % (Auto) 1.7, Baso % (Auto) 0.9, Neut # (Auto) 9.2 H, Lymph # (Auto) 3.3, [place] # (Auto) 1.0, Eos # (Auto) 0.2, Baso # (Auto) 0.1 06/19/22 18:00: Sodium 142, Potassium 3.8, Chloride 104, Carbon Dioxide 33 H, Anion Gap 8.8, BUN 9, Creatinine 0.50 L, Estimated Creat Clear 69, Estimated GFR 121, Est GFR ( Amer) 147, Glucose 121 H, Calcium 9.2 Result diagrams: 06/19/22 18:00 06/19/22 18:00 Orders (Tests/Meds): ED MEDICATIONS Discontinued Medications Generic Name Dose Route Start Last Admin Trade Name Jesus PRN Reason Stop Dose Admin Iopamidol 100 ml 06/19/22 18:55 06/19/22 18:56 Iopamidol-370 (76%);100ml Bottle IV 06/19/22 18:56 100 ml ONCE ONE Administration Morphine Sulfate 4 mg 06/19/22 17:57 06/19/22 18:08 Morphine 4mg/Ml Syringe IV 06/19/22 17:58 4 mg ONCE ONE Administration Ondansetron HCl 4 mg 06/19/22 18:00 06/19/22 18:09 Ondansetron 4mg/2ml Vial IV 06/19/22 18:01 4 mg ONCE ONE Administration Sodium Chloride 10 ml 06/19/22 18:55 06/19/22 18:56 Sodium Chloride 0.9% 10ml Syr (Rad Only) IV 06/19/22 18:56 10 ml ONCE ONE Administration Sodium Chloride 50 ml 06/19/22 18:55 06/19/22 18:56 0.9 % Sodium Chloride 50 Ml Vial IV 06/19/22 18:56 50 ml ONCE ONE Administration ORDERS Category Date Time Status Type and Screen Stat BBK 06/19/22 19:21 Received Medical Decision Narrative: In summary this is a 71-year-old female past medical history described above who presents emergency department for evaluation of traumatic injury sustained in a fall. Patient is hemodynamically stable upon arrival. C-spine precautions were initiated. Work-up will be conducted with noncontrasted CT scan of the head and CT of the spine, CT of the chest, abdomen, pelvis, plain film of the right lateral ankle. Hematologic labs to be obtained. Initial interventions include morphine. Work-up is reviewed by me, hematologic labs are nonactionable. Imaging is remarkable for questionable fracture of the fourth toe which was eric taped. Superior endplate deformity of the thoracic spine for which patient has no focal tenderness therefore chronicity is favored. Patient continued to be on her baseline oxygen requirement throughout evaluation. There was however incidental findings of nodules of the left breast and left lung which were relayed to the [facility]
[2022-06-19 18:26] LABS: Chloride 104 mmol/L (98-107); Potassium 3.8 mmoL/L (3.5-5.1); Sodium 142 mmol/L (136-145)
[2022-06-19 18:29] LABS: Anion Gap 8.8 mEq/L (5-15); Blood Urea Nitrogen 9 mg/dl (7-17); Calcium 9.2 mg/dl (8.4-10.2); Carbon Dioxide 33 mmol/L (22.0-30.0); Creatinine Clearance Estimated 69 mL/min (50-200); Estimated Glomerular Filt Rate 121 ml/min (>60); GFR (African American) 147 ML/MIN (>60); Glucose 121 mg/dl (74-100)
[2022-06-19 18:42] LABS: Basophils # 0.1 K/mm3 (0-0.2); Basophils % 0.9 % (0.1-2.0); Eosinophils # 0.2 K/mm3 (0.0-0.4); Eosinophils % 1.7 % (0.1-12.0); Hematocrit 45.6 % (37.0-47.0); Hemoglobin 14.1 g/dL (12.2-16.2); Lymphocytes # 3.3 K/mm3 (0.7-4.5); Lymphocytes % 23.6 % (10-50); Mean Corpuscular HGB Conc 30.9 g/dL (31.8-35.4); Mean Corpuscular Hemoglobin 28.9 pg (27.0-31.2); Mean Corpuscular Volume 93.4 fl (81-99); Monocytes % 7.4 % (1.7-9.3); Neutrophils # 9.2 K/mm3 (1.8-7.8); Neutrophils % 66.4 % (37.0-80.0); Platelet Count 318 K/mm3 (142-424); Red Blood Count 4.88 M/mm3 (4.20-5.40); Red Cell Distribution Width 15.8 % (11.5-17.5); White Blood Count 13.9 K/mm3 (4.8-10.8)
--- NOTE | 2022-06-19 18:48 | PC.NURSE ---
PT IN CT
--- NOTE | 2022-06-19 18:49 | PC.NURSE ---
PT BACK FROM CT
--- NOTE | 2022-06-19 19:09 | PC.NURSE ---
LAB HERE FOR TYPE AND SCREEN
--- NOTE | 2022-06-19 19:21 | PC.NURSE ---
V RAD SPEAKING DR VIDAL
[2022-06-19 19:32] VITALS: BP 117/60; PULSE 72; O2SAT 97
--- NOTE | 2022-06-19 19:37 | PC.NURSE ---
Pt given warm blanket for comfort
[2022-06-19 20:16] VITALS: BP 103/37; PULSE 72; O2SAT 98
[2022-06-19 20:46] VITALS: BP 121/68; PULSE 74; O2SAT 94
[2022-06-19 21:10] VITALS: BP 121/68; PULSE 83; RESP 16; TEMP 37.2; O2SAT 96
--- NOTE | 2022-06-19 21:20 | PC.NURSE ---
PT'S SON CONTACTED AND STATES HE WILL ARRIVE AROUND 2200. PT MADE AWARE. DISCHARGE INSTRUCTIONS GIVEN TO PATIENT. JAY.
--- NOTE | 2022-06-19 22:15 | PC.NURSE ---
Patient continues to wait in the room. Pt son called and stated that he wasn't able to find someone to drive her home but he was working on it. Patient continues to wait in wheelchair with oxygen.
--- NOTE | 2022-06-19 22:33 | PC.NURSE ---
Pt family called stating that they were working on a ride but it could probably be another 30 minutes before they get here.
== END 2022-06-19 23:12 | disposition home or self-care (01) ==
PROVIDERS: Emergency Provider Emergency Medicine; PCP Nurse Practitioner Family
DX: R91.1 Solitary pulmonary nodule (principal); N63.0 Unspecified lump in unspecified breast; M79.675 Pain in left toe(s); R10.12 Left upper quadrant pain; M54.9 Dorsalgia, unspecified; M54.6 Pain in thoracic spine; M25.571 Pain in right ankle and joints of right foot; W19.XXXA Unspecified fall, initial encounter; J44.9 Chronic obstructive pulmonary disease, unspecified; F17.210 Nicotine dependence, cigarettes, uncomplicated; Z99.81 Dependence on supplemental oxygen
CPT/HCPCS: 36415; 70450; 71275; 72125; 72128; 72131; 73620; 74174; 80048; 85025; 86850; 96374; 96375; 99285; J2405; Q9967

== ENCOUNTER 2022-06-29 04:32 | Observation (INO) | payer MEDICARE, OTHER, SELFPAY ==
[2022-06-29] VITALS (14 sets, daily range): BP systolic 122–148; BP diastolic 55–102; PULSE 63–109; RESP 16–18; TEMP 36.4–37.1; O2SAT 2–99; BMI 29.2; BMI 28.2
--- NOTE | 2022-06-29 04:50 | XR_ITS ---
PROCEDURE INFORMATION: Exam: XR Chest Exam date and time: 06/29/2022 5:07 AM Age: 71 years old Clinical indication: Shortness of breath; Additional info: SOA TECHNIQUE: Imaging protocol: Radiologic exam of the chest. Views: 1 view. COMPARISON: CR XR CHEST PORTABLE 06/11/2022 10:24 PM FINDINGS: Lungs: There are low lung volumes accentuating the basilar markings more prominent the right than left. Right basilar consolidation/pneumonia could be present. Pleural spaces: No pleural effusion. No pneumothorax. Heart/Mediastinum: No cardiomegaly. Bones/joints: Unremarkable. IMPRESSION: 1. Low lung volumes accentuate the basilar markings. There could be a right basilar pneumonia. 2. A followup PA and lateral radiograph is recommended when the patient is clinically able.
--- NOTE | 2022-06-29 04:51 | PC.NURSE ---
RT at BS for SRIKANTH
--- NOTE | 2022-06-29 04:59 | PC.NURSE ---
RAD at BS for XRAY
[2022-06-29 05:02] LABS: Basophils # 0.1 K/mm3 (0-0.2); Eosinophils # 0.2 K/mm3 (0.0-0.4); Hematocrit 39.9 % (37.0-47.0); Hemoglobin 12.4 g/dL (12.2-16.2); Lymphocytes # 2.7 K/mm3 (0.7-4.5); Lymphocytes % 27.8 % (10-50); Mean Corpuscular HGB Conc 31.1 g/dL (31.8-35.4); Mean Corpuscular Hemoglobin 28.8 pg (27.0-31.2); Mean Corpuscular Volume 92.8 fl (81-99); Mean Platelet Volume 7.6 fl (7.4-10.4); Monocytes # 0.7 K/mm3 (0.1-1.0); Monocytes % 6.8 % (1.7-9.3); Neutrophils # 6.1 K/mm3 (1.8-7.8); Neutrophils % 62.4 % (37.0-80.0); Platelet Count 347 K/mm3 (142-424); Red Cell Distribution Width 15.4 % (11.5-17.5); White Blood Count 9.8 K/mm3 (4.8-10.8)
[2022-06-29 05:03] LABS: Coronavirus 19, PCR Not Detected (NotDetected); Influenza A, PCR Not Detected (NotDetected); Influenza B, PCR Not Detected (NotDetected)
--- NOTE | 2022-06-29 05:04 | ECG_ITS ---
APPROVED REPORT Exam: Resting ECG HR:72 bpm ECG Measurements Heart Rate 72 AXES VA 144 P 63 QRSd 82 QRS 82 QT 418 T 64 QTc 443 Conclusion SINUS RHYTHM NORMAL ECG UNCONFIRMED REPORT Electronically signed by : Janes Delgado MD 06/30/2022 09:13:23
[2022-06-29 05:11] LABS: Alanine Aminotransferase 10 U/L (12-78); Albumin Level 3.4 g/dl (3.5-5.0); Albumin/Globulin Ratio 1.3 (1.1-1.8); Alkaline Phosphatase 105 U/L (38-126); Anion Gap 8.6 mEq/L (5-15); Aspartate Amino Transferase 48 U/L (14-36); Bilirubin,Total 0.2 mg/dl (0.2-1.3); Blood Urea Nitrogen 6 mg/dl (7-17); Calcium 8.7 mg/dl (8.4-10.2); Carbon Dioxide 31 mmol/L (22.0-30.0); Chloride 106 mmol/L (98-107); Creatinine Clearance Estimated 68 mL/min (50-200); Estimated Glomerular Filt Rate 121 ml/min (>60); GFR (African American) 147 ML/MIN (>60); Globulin 2.6 g/dL (1.3-3.2); Glucose 100 mg/dl (74-100); Potassium 3.6 mmoL/L (3.5-5.1); Sodium 142 mmol/L (136-145)
[2022-06-29 05:13] LABS: Lactic Acid 1.1 mmol/L (0.7-2.1)
[2022-06-29 05:19] LABS: Microscopic, Urine URINE MICROSCOPIC (MICROSCOPIC)
[2022-06-29 05:21] LABS: NT Pro Brain Natriuretic Pep. 47.9 pg/mL (0-125)
[2022-06-29 05:23] LABS: Appearance,Urine SL CLOUDY (Clear); Bilirubin,Urine Negative (Negative); Blood, Urine Negative (Negative); Color,Urine YELLOW (Yellow); Glucose,Urine (UA) Negative (Negative); Ketones,Urine Negative (Negative); Leukocyte Esterase,Urine Negative (Negative); Nitrate,Urine Negative (Negative); Protein,Urine Negative (Negative); Specific Gravity, Urine 1.015 (1.005-1.030); Urobilinogen,Urine 0.2 EU/dl (0.2)
[2022-06-29 05:25] LABS: Troponin I < 0.01 ng/ml (0.00-0.034)
--- NOTE | 2022-06-29 05:25 | HMH.EDBACK ---
ED Disposition Clinical Impression: Lumbar radiculopathy, COPD with acute exacerbation, Tobacco dependence UTI (urinary tract infection) Qualifiers: Urinary tract infection type: site unspecified Hematuria presence: without hematuria Qualified Code(s): N39.0 - Urinary tract infection, site not specified Disposition: Admitted as Observation Condition on Discharge: Fair Instructions: DI for Low Back Pain Referrals: Kin Colindres APRN [Primary Care Provider] - - Critical Care Critical Care Time: No Attestation: On 06/29/22, the high probability of a clinically significant, sudden or life threatening deterioration of the following system(s) required my full and direct attention, intervention and personal management. The time I documented below is in addition to time spent performing reported procedures but includes the following listed in this critical care notation. Medical Decision Making - Medical Records Medical records reviewed: Yes: I reviewed the patient's medical records. - Alex Inquiry Pt receiving controlled substance: No Vital Signs: 06/29/22 04:43 06/29/22 05:00 06/29/22 05:30 Temperature 98 F Temperature Source Oral Pulse Rate 75 69 Pulse Rate [Apical] 82 Respiratory Rate 18 Blood Pressure 122/70 145/69 H Blood Pressure [Right Arm] 144/102 H Blood Pressure Mean Blood Pressure Mean [Right Arm] 116 Blood Pressure Source [Right Arm] Automatic Cuff Blood Pressure Position [Right Arm] Sitting 02 Sat by Pulse Oximetry 98 99 98 Oxygen Delivery Method Nasal Cannula Nasal Cannula Nasal Cannula Oxygen Flow Rate (LPM) 3 2 2 06/29/22 06:00 06/29/22 06:30 06/29/22 07:00 Temperature Temperature Source Pulse Rate 67 63 67 Pulse Rate [Apical] Respiratory Rate Blood Pressure 134/63 141/65 H 140/70 Blood Pressure [Right Arm] Blood Pressure Mean 93 Blood Pressure Mean [Right Arm] Blood Pressure Source [Right Arm] Blood Pressure Position [Right Arm] 02 Sat by Pulse Oximetry 98 98 97 Oxygen Delivery Method Room Air Room Air Nasal Cannula Oxygen Flow Rate (LPM) 2 - Lab Data Lab results reviewed: Yes: I reviewed the patient's lab results. Lab Results 06/29/22 04:50: SARS-CoV-2 (PCR) Not detected, Influenza A Untype (PCR) Not detected, Influenza Type B (PCR) Not detected 06/29/22 04:50: WBC 9.8, RBC 4.30, Hgb 12.4, Hct 39.9, MCV 92.8, MCH 28.8, MCHC 31.1 L, RDW 15.4, Plt Count 347, MPV 7.6, Neut % (Auto) 62.4, Lymph % (Auto) 27.8, [place] % (Auto) 6.8, Eos % (Auto) 2.0, Baso % (Auto) 1.0, Neut # (Auto) 6.1, Lymph # (Auto) 2.7, [place] # (Auto) 0.7, Eos # (Auto) 0.2, Baso # (Auto) 0.1 06/29/22 04:50: Sodium 142, Potassium 3.6, Chloride 106, Carbon Dioxide 31 H, Anion Gap 8.6, BUN 6 L, Creatinine 0.50 L, Estimated Creat Clear 68, Estimated GFR 121, Est GFR ( Amer) 147, Glucose 100, Calcium 8.7, Total Bilirubin 0.2, AST 48 H, ALT 10 L, Alkaline Phosphatase 105, Troponin I < 0.01, Total Protein 6.0 L, Albumin 3.4 L, Globulin 2.6, Albumin/Globulin Ratio 1.3 06/29/22 04:50: NT-Pro-B Natriuret Pep 47.9 06/29/22 04:50: Lactate 1.1 06/29/22 05:13: Urine Color Yellow, Urine Appearance Sl cloudy, Urine pH 6.0, Ur Specific [place] 1.015, Urine Protein Negative, Urine Glucose (UA) Negative, Urine Ketones Negative, Urine Blood Negative, Urine Nitrate Negative, Urine Bilirubin Negative, Urine Urobilinogen 0.2, Ur Leukocyte Esterase Negative, Urine WBC 10-20, Ur Squamous Epith Cells 5-10, Urine Bacteria 2+ Result diagrams: 06/29/22 04:50 06/29/22 04:50 Orders (Tests/Meds): ED MEDICATIONS Generic Name Dose Route Start Last Admin Trade Name Freq PRN Reason Stop Dose Admin Sodium Chloride 1,000 mls @ 999 mls/hr 06/29/22 05:00 06/29/22 05:07 Sod Chlor 0.9% 1000ml Bag IV 06/29/22 06:00 999 mls/hr .[id number] DANETTE Administration Sodium Chloride 10 ml 06/29/22 04:51 Sodium Chloride 0.9% 10ml Flush Syringe IV 07/29/22 04:50 NEEDED PRN Maintain IV
[2022-06-29 05:29] LABS: Bacteria,Urine 2+ /lpf
[2022-06-29 06:30] LABS: ABG Base Excess 3.4 mmol/L (-2.4-2.3); ABG HCO3 29.1 mmhg (22.0-26.0); ABG Oxygen Saturation 97 % (90-100); ABG PH 7.34 mmol/L (7.35-7.45); ABG PO2 95.2 mmhg (80-100); ABG TCO2 30.8 mmhg (23-27)
--- NOTE | 2022-06-29 07:30 | PC.NURSE ---
Called hothouse worker to let them know about admission. They stated they would call back shortly with room assignment.
--- NOTE | 2022-06-29 07:53 | PC.NURSE ---
Notified BRYANNA rossi of bed assignment.
--- NOTE | 2022-06-29 08:00 | PC.NURSE ---
Lab at BS to get 2nd troponin
--- NOTE | 2022-06-29 08:04 | PC.NURSE ---
Called report to Berna GOULD. She stated she would be down shortly to get her.
--- NOTE | 2022-06-29 08:09 | PC.NURSE ---
Pt is aware of need for sputum sample. She states she isn't coughing anything up at this time.
--- NOTE | 2022-06-29 08:18 | PC.NURSE ---
BRYANNA Poe and JOSHUA Hinojosa taking patinet to 2nd floor. All belongings with patient
--- NOTE | 2022-06-29 08:20 | PC.NURSE ---
patient arrived from ED by stretcher
[2022-06-29 08:36] LABS: Troponin I < 0.01 ng/ml (0.00-0.034)
--- NOTE | 2022-06-29 10:29 | P.CONPHA_ITS ---
[facility] Pharmacy VTE Monitoring - Patient Demographics Admission date: 06/29/22 Report Date: 06/29/22 Time: 10:29 Allergies/Adverse Reactions: Patient Allergies metronidazole Allergy (Unknown, Verified 06/21/22 13:17) I-HIVES nitrofurantoin [From MACROBID] Allergy (Unknown, Verified 06/21/22 13:17) Unknown allergy reaction Height: 1.7 m Weight: 81.6 kg Patient Problems: Current Active Problems COPD with acute exacerbation (Acute) UTI (urinary tract infection) (Acute) Lumbar radiculopathy (Acute) Tobacco dependence (Chronic) - VTE Risk Labs: VTE Related Lab Results Hgb 12.4 g/dL (12.2-16.2) 06/29/22 04:50 Hct 39.9 % (37.0-47.0) 06/29/22 04:50 Plt Count 347 K/mm3 (142-424) 06/29/22 04:50 BUN 6 mg/dl (7-17) L 06/29/22 04:50 Creatinine 0.50 mg/dl (0.52-1.04) L 06/29/22 04:50 Estimated Creat Clear 68 mL/min (50-200) 06/29/22 04:50 Clinical Trial Participant: No - Prophylaxis VTE Prophylaxis Ordered?: Yes Types of VTE Prophylaxis: TEDS Knee High
--- NOTE | 2022-06-29 10:38 | HMH.PHAINT ---
VERIFIED HOME MEDICATION LIST USING LIST FROM THE OUTPATIENT PHARMACY
--- NOTE | 2022-06-29 11:45 | HMH.HP ---
*Admission Date: 06/29/22 *Chief complaint: pneumonia, uti, back pain post fall *History of present illness: Patient is a 71-year-old white female, very poor historian, who was admitted with severe intractable back pain following several falls at home. Patient relays that she lives at home with her son and has sustained about 3 falls. She has severe back pain unrelieved with her home regimen, and exacerbated by movement. Nursing staff notes that she screams in pain being repositioned on the bed. Urinalysis is suggestive of UTI. Chest film is suggestive of a right basilar pneumonia. Patient has a history of COPD and is a heavy smoker. Also gives a history of asthma and coronary artery disease. [facility] History Medical History: Reports:: Anxiety, Asthma, Atherosclerotic Heart Disease, Chronic Obstructive Pulmonary Disease (COPD), Coronary Artery Disease, Hyperlipidemia, Hypertension, Migraine, Urinary Tract Infection Denies:: Cancer, Diabetes Mellitus Type 1, Diabetes Mellitus Type 2, Internal Pacemaker, MRSA *Have you ever received a pneumonia vaccine?: Yes *Have you received a flu vaccine this season?: Yes Other Medical History: Reports: Arthritis, Cataracts, Hoarseness, Hormone Therapy, Hypothyroidism, Sinus Problems, Thyroid Disease Laterality Cases: Left: Lumpectomy Other Surgeries: Yes: No Previous Surgery, Cancer Surgery, Cardiac Catheterization, Colonoscopy, Hysterectomy-Total. No: Pacemaker Amputation: No Fractures: Yes (foot) - *Social History Smoking Status: Current every day smoker Tobacco Type: cigarettes # Packs/Day (cigarettes): 1 Alcohol Intake: never Alcohol Intake Frequency:: 3 or more drinks per day Substance Use Type: denies use *Occupational Status:: retired Housing: shelter Household Members: family *Travel in the last 8 weeks: None - Psychiatric History Pschychiatric History:: Reports:: Anxiety Family Hx:: Cancer, Diabetes Review of Systems - Constitutional Reports weakness - Eyes Denies pain - ENT Reports poor balance - *Cardiovascular Denies chest pain - *Respiratory Reports cough, Reports shortness of breath with activity, Reports wheezing, Denies coughing up blood - *Gastrointestinal Denies abdominal pain - *Genitourinary Reports painful urination - *Musculoskeletal Reports abnormal walking - Integumentary/Breasts Denies yellowing of the skin - *Neurologic Reports abnormal walking, Reports unsteadiness, Reports frequent falls, Reports lack of coordination, Reports tremor(s), Reports weakness, Denies headache(s), Denies seizure-like activity - Psychiatric Reports lack of enjoyment - Endocrine Reports increased urination - Hematologic/Lymphatic Denies easy bleeding - Allergic/Immunologic Reports wheezing Meds Home Medications Medication Instructions Recorded Confirmed Type Aspirin [Low Dose Aspirin EC] 81 mg PO DAILY 09/12/21 06/29/22 History Cholecalciferol (Vitamin D3) 25 mcg PO DAILY 09/12/21 06/29/22 History [Vitamin D3 1,000 Unit Cap] rosuvastatin 10 mg tablet 10 mg PO HS #90 tab 04/02/22 06/29/22 Rx alprazolam 0.5 mg tablet 0.5 mg PO TID #90 tab 06/10/22 06/29/22 Rx hydrocodone 7.5 mg-acetaminophen 1 tab PO TID #90 tab 06/10/22 06/29/22 Rx 325 mg tablet albuterol sulfate 90 mcg/actuation 2 inh INHALATION Q4H PRN #8.5 g 06/21/22 06/29/22 Rx aerosol inhaler budesonide-formoterol HFA 160 2 inh INHALATION BID #10.2 g 06/21/22 06/29/22 Rx mcg-4.5 mcg/actuation aerosol inhaler ergocalciferol (vitamin D2) 1,250 1,250 mcg PO WEEKLY #14 cap 06/21/22 06/29/22 Rx mcg (50,000 unit) capsule quetiapine 100 mg tablet 300 mg PO HS #90 tab 06/21/22 06/29/22 Rx Escitalopram Oxalate 20 mg PO DAILY 06/29/22 06/29/22 History Gabapentin 800 mg PO TID 06/29/22 06/29/22 History Levothyroxine Sodium [Synthroid 50 mcg PO DAILY 06/29/22 06/29/22 History 50mcg (0.05mg) tab] Omeprazole 20 mg PO DAILY 06/29/22 06/29/22 History Oxybutynin Chloride 5 mg
[2022-06-29 11:49] LABS: Troponin I < 0.01 ng/ml (0.00-0.034)
--- NOTE | 2022-06-29 18:12 | PC.NURSE ---
pt has become more alert through out the shift. She is alert and appropriate. Tolerated po medications well. She reports improved work of breathing as well as improved pain. Will continue to monitor
--- NOTE | 2022-06-29 19:41 | PC.NURSE ---
left sputum cup at beside. pt instrusted to take a deep cough.
[2022-06-29 20:17] LABS: ABG PCO2 55.1 mmhg (35.0-45.0)
[2022-06-30] VITALS (8 sets, daily range): BP systolic 134–155; BP diastolic 64–81; PULSE 67–88; RESP 14–18; TEMP 36.6–36.9; O2SAT 91–96; BMI 29.0
--- NOTE | 2022-06-30 03:48 | PC.NURSE ---
Pt has rested majority of my shift. Pt arousable to name. Pt took night medications without issue. Sputum cup at bedside and explained to pt about obtaining sputum specimen. Pt verbalized understanding. Pt is on 2 L NC, tolerating well with O2 sats > 90%. Pt has had no complaints this shift. Lung sounds diminished bilaterally. Pt does has an intermittent cough, non-productive at this time. No other needs at this time. Call light in reach. Bed alarm on for safety.
[2022-06-30 07:23] LABS: Chloride 107 mmol/L (98-107)
[2022-06-30 07:24] LABS: Potassium 3.9 mmoL/L (3.5-5.1); Sodium 141 mmol/L (136-145)
[2022-06-30 07:25] LABS: Basophils % 0.3 % (0.1-2.0); Eosinophils % 0.2 % (0.1-12.0); Hematocrit 42.7 % (37.0-47.0); Hemoglobin 13.1 g/dL (12.2-16.2); Lymphocytes # 1.2 K/mm3 (0.7-4.5); Mean Corpuscular HGB Conc 30.7 g/dL (31.8-35.4); Mean Corpuscular Hemoglobin 28.2 pg (27.0-31.2); Mean Corpuscular Volume 91.9 fl (81-99); Mean Platelet Volume 8.1 fl (7.4-10.4); Monocytes # 0.3 K/mm3 (0.1-1.0); Monocytes % 3.6 % (1.7-9.3); Neutrophils # 7.5 K/mm3 (1.8-7.8); Platelet Count 387 K/mm3 (142-424); Red Blood Count 4.65 M/mm3 (4.20-5.40); Red Cell Distribution Width 15.3 % (11.5-17.5); White Blood Count 9.1 K/mm3 (4.8-10.8)
[2022-06-30 07:27] LABS: Anion Gap 6.9 mEq/L (5-15); Blood Urea Nitrogen 8 mg/dl (7-17); Calcium 8.4 mg/dl (8.4-10.2); Carbon Dioxide 31 mmol/L (22.0-30.0); Creatinine Clearance Estimated 67 mL/min (50-200); Estimated Glomerular Filt Rate 121 ml/min (>60); GFR (African American) 147 ML/MIN (>60); Glucose 135 mg/dl (74-100)
--- NOTE | 2022-06-30 09:47 | HMH.PTEV ---
Physical Therapy Evaluation Rehab PT IP Evaluation Start: 06/29/22 11:59 Freq: ONCE Status: Active Protocol: Document 06/30/22 09:41 PWELEUTERIO (Rec: 06/30/22 09:47 PWELEUTERIO [id number]) Subjective/History History History This is the initial IP PT evaluation for Naida Sommer. Pt is a 71 y/o female admitted to [facility] thru ED for intractable back pain s/p multiple falls at home Subjective Subjective Pt reports she lives w/ son who just got out of rehab and pt notes that son is a hoarder - pt reports son was supposed to clear out the house and make paths for her to get around. Rehab PT IP Eval Objective Appearance Patient Behavior Cooperative Patient Orientation Name,Birthday,Year,Situation Difficulty following instructions none Speech Pattern Clear,Appropriate,Soft-Spoken Ambulation Patient Able to Ambulate Yes Ambulation Observation IP General Gait Pattern Observation Wide Based Gait,Shuffling Step Ambulation Distance (feet) 5 Ambulation Assistive Device Rolling Walker Ambulation Ability Moderate x 1 (50% assist) Balance Ability to Arise Able, uses arms to help Sitting Balance Steady, safe Standing Balance Unsteady Dynamic Sitting Balance Ability Fair Dynamic Standing Balance Ability Poor Transfers Bed Transfer Ability Moderate x 1 (50% assist) Sit to Stand Bed Transfer Ability Minimal x 1 (25% assist) Rehab PT IP prob,goals,plan Problems Date of Evaluation: 06/30/22 PT IP Problems Bed Mobility,Transfers,Gait, Balance,Self care,Safety Rehab Potential Rehab Potential Fair Equipment Needs Assistive Devices Rolling / Wheeled Walker Plan PT Intervention Plan Bed Mobility,Transfers,Gait, Balance,Self care,Safety, Therapeutic Exercise PT Plan Frequency BID Duration LOS Discharge Goals Bed Transfer Ability Moderate x 1 (50% assist) Sit to Stand Chair Transfer Ability Minimal x 1 (25% assist) Ambulation Assistive Device Rolling Walker Ambulation Distance (feet) 5 Discharge Plan PT Discharge Plan At this time pt will benefit from skilled therapy ebony in [facility]. Upon d/c pt will continue to benefit from
--- NOTE | 2022-06-30 10:25 | HMH.ACPN2 ---
Internal Medicine - PN: Subj *Date: 06/30/22 *Time: 10:28 Interval history: looks much brighter this morning more alert some improvement with pain no respiratory setbacks overnite Exam Vital signs and Labs for Last 24 Hours: Temp Pulse Resp BP Pulse Ox 97.8 F 88 14 137/64 92 L 06/30/22 07:52 06/30/22 07:52 06/30/22 07:52 06/30/22 07:52 06/30/22 07:52 Laboratory Results - last 24 hr 06/29/22 04:51: ABG pH 7.34 L, ABG pCO2 55.1 H, ABG pO2 95.2, ABG HCO3 29.1 H, ABG Total CO2 30.8 H, ABG O2 Saturation 97, ABG Base Excess 3.4 H 06/29/22 11:20: Troponin I < 0.01 06/30/22 06:37: WBC 9.1, RBC 4.65, Hgb 13.1, Hct 42.7, MCV 91.9, MCH 28.2, MCHC 30.7 L, RDW 15.3, Plt Count 387, MPV 8.1, Neut % (Auto) 83.0 H, Lymph % (Auto) 13.0, [place] % (Auto) 3.6, Eos % (Auto) 0.2, Baso % (Auto) 0.3, Neut # (Auto) 7.5, Lymph # (Auto) 1.2, [place] # (Auto) 0.3, Eos # (Auto) 0.0, Baso # (Auto) 0.0 06/30/22 06:37: Sodium 141, Potassium 3.9, Chloride 107, Carbon Dioxide 31 H, Anion Gap 6.9, BUN 8 D, Creatinine 0.50 L, Estimated Creat Clear 67, Estimated GFR 121, Est GFR ( Amer) 147, Glucose 135 H, Calcium 8.4 I & O for Last 24 hours: Intake & Output 06/27/22 06/28/22 06/29/22 06/30/22 23:59 23:59 23:59 23:59 Intake Total 480 / 480 840 / 840 Balance 480 / 480 840 / 840 Weight 179 lb 14.355 oz 184 lb 9.6 oz Microbiology Reports for the Last 24 Hours: Microbiology 06/29/22 05:13 Urine,Catheterized Urine Culture - Preliminary - Constitutional no acute distress, chronically ill appearing - *Routine HEENT Exam Head: Present: normocephalic Eye: Present: EOMI, PERRL ENT: Present: mucous membranes moist - *Routine Neck Exam Present: supple. Absent: lymphadenopathy - *Routine Respiratory Exam Present: decreased breath sounds, rhonchi, wheezes, crackles. Absent: accessory muscle use - *Routine Cardiovascular Exam Present: RRR - *Routine Abdominal Exam Present: soft, normoactive bowel sounds. Absent: tenderness - *Routine Extremities Exam Absent: cyanosis, clubbing, edema - *Routine Skin Exam Present: warm. Absent: rash - *Routine Neurological Exam Present: alert, oriented X3 Assessment and Plan (1) RLL pneumonia Status: Acute Qualifiers: Pneumonia type: due to unspecified organism Qualified Code(s): J18.9 - Pneumonia, unspecified organism Category: Medical Code(s): J18.1 - Lobar pneumonia, unspecified organism (2) COPD with acute exacerbation Status: Chronic Category: Medical Code(s): J44.1 - Chronic obstructive pulmonary disease with (acute) exacerbation (3) Lumbar radiculopathy Status: Chronic Category: Medical Code(s): M54.16 - Radiculopathy, lumbar region (4) UTI (urinary tract infection) Status: Acute Qualifiers: Urinary tract infection type: site unspecified Hematuria presence: without hematuria Qualified Code(s): N39.0 - Urinary tract infection, site not specified Category: Medical Code(s): N39.0 - Urinary tract infection, site not specified (5) Tobacco dependence Status: Chronic Category: Medical Code(s): F17.200 - Nicotine dependence, unspecified, uncomplicated (6) Fall Status: Acute Qualifiers: Encounter type: sequela Qualified Code(s): W19.XXXS - Unspecified fall, sequela Category: Medical Code(s): W19.XXXA - Unspecified fall, initial encounter (7) COPD (chronic obstructive pulmonary disease) Status: Chronic Qualifiers: COPD type: chronic bronchitis Chronic bronchitis type: simple Qualified Code(s): J41.0 - Simple chronic bronchitis Category: Medical Code(s): J44.9 - Chronic obstructive pulmonary disease, unspecified (8) Chronic low back pain Status: Chronic Qualifiers: Back pain laterality: bilateral Sciatica presence: with sciatica Sciatica laterality: bilateral sciatica Qualified Code(s): M54.42 - Lumbago with sciatica, left side; M54.41 - Lumbago with sciatica,
--- NOTE | 2022-06-30 10:32 | XR_ITS ---
PROCEDURE INFORMATION: Exam: XR Chest Exam date and time: 06/30/2022 11:53 AM Age: 71 years old Clinical indication: Shortness of breath; Additional info: Pna TECHNIQUE: Imaging protocol: Radiologic exam of the chest. Views: 1 view. COMPARISON: CR XR CHEST PORTABLE 06/29/2022 5:07 AM FINDINGS: Lungs: Unremarkable. No consolidation. Pleural spaces: Unremarkable. No pleural effusion. No pneumothorax. Heart/Mediastinum: Unremarkable. No cardiomegaly. Bones/joints: Unremarkable. IMPRESSION: No acute findings.
--- NOTE | 2022-06-30 17:58 | PC.NURSE ---
pt has done well today. Nursing got her up with 2 assist. her gait is shuffled and she is generally weak. Reports feeling less short of breath today. Sputum sample sent down this am. tolerating 2lnc.
[2022-07-01] VITALS (7 sets, daily range): BP systolic 129–157; BP diastolic 59–99; PULSE 64–90; RESP 16–20; TEMP 36.6–36.8; O2SAT 92–96; BMI 29.0
--- NOTE | 2022-07-01 04:50 | PC.NURSE ---
Pt more alert tonight, not as tired. Pt is on 2 L NC, as she is at home. Tolerating well. Lungs sounds - expiratory wheezing and rhonchi. Intermittent productive cough. Pt is incontinent at this time, not calling out to use restroom. Pt has slept in intervals. No complaints voiced this far. Pt has sat up in bed and watched tv. Takes medications without issue. Call light in reach. Bed alarm on for safety. No other needs voiced at this time.
[2022-07-01 06:36] LABS: Basophils % 0.2 % (0.1-2.0); Eosinophils # 0.1 K/mm3 (0.0-0.4); Eosinophils % 0.8 % (0.1-12.0); Hematocrit 39.5 % (37.0-47.0); Hemoglobin 12.9 g/dL (12.2-16.2); Lymphocytes # 0.9 K/mm3 (0.7-4.5); Mean Corpuscular HGB Conc 32.8 g/dL (31.8-35.4); Mean Corpuscular Hemoglobin 29.5 pg (27.0-31.2); Mean Platelet Volume 8.6 fl (7.4-10.4); Monocytes # 0.5 K/mm3 (0.1-1.0); Monocytes % 4.1 % (1.7-9.3); Neutrophils # 10.8 K/mm3 (1.8-7.8); Neutrophils % 87.9 % (37.0-80.0); Platelet Count 364 K/mm3 (142-424); Red Blood Count 4.39 M/mm3 (4.20-5.40); Red Cell Distribution Width 15.6 % (11.5-17.5); White Blood Count 12.2 K/mm3 (4.8-10.8)
[2022-07-01 06:39] LABS: MANUAL DIFFERENTIAL MANUAL DIFFERENTIAL (MANUAL DIFF)
[2022-07-01 06:44] LABS: Alanine Aminotransferase 16 U/L (12-78); Albumin Level 3.4 g/dl (3.5-5.0); Albumin/Globulin Ratio 1.4 (1.1-1.8); Alkaline Phosphatase 81 U/L (38-126); Anion Gap 5.6 mEq/L (5-15); Aspartate Amino Transferase 20 U/L (14-36); Blood Urea Nitrogen 13 mg/dl (7-17); Calcium 9.3 mg/dl (8.4-10.2); Carbon Dioxide 31 mmol/L (22.0-30.0); Chloride 108 mmol/L (98-107); Creatinine Clearance Estimated 67 mL/min (50-200); Estimated Glomerular Filt Rate 157 ml/min (>60); GFR (African American) 190 ML/MIN (>60); Globulin 2.5 g/dL (1.3-3.2); Glucose 183 mg/dl (74-100); Potassium 3.6 mmoL/L (3.5-5.1); Sodium 141 mmol/L (136-145); Total Protein,Serum 5.9 g/dl (6.3-8.2)
[2022-07-01 06:48] LABS: Bilirubin,Total < 0.1 mg/dl (0.2-1.3)
[2022-07-01 07:05] LABS: Lymphocytes % 10 % (10-50); Monocytes % 1 % (2-9); Neutrophils % 89 % (42-76); Total Cells Counted 100
[2022-07-01 07:06] LABS: Platelet Estimate Normal; RBC Morphology Normal
--- NOTE | 2022-07-01 08:31 | SW/DCPLANNER ---
Addendum entered by Dinorah Reardon 07/02/22 09:07: This patient will discharge to [facility] today SNF level of care. Patient will have a PICC line placed today for IV Gentamicin: [facility] is aware and agreeable with this plan. Addendum entered by Dinorah Reardon 07/01/22 14:56: [facility] has accept this patient for today SNF level of care. COVID swab will be needed prior to discharge. Original Note: I spoke with this patient this AM regarding discharge plans. Patient prefers to return home but understands PT recommends SNF level of care. Patient is agreeable to placement at [facility] for only short term. [facility] GRANT[facility] confirmed she does have female beds available . I will fax patient information to [facility] this AM.
--- NOTE | 2022-07-01 12:07 | HMH.ACPN2 ---
Internal Medicine - PN: Subj *Date: 07/01/22 *Time: 08:00 Interval history: pt reports some better but still with back pain which limits adl- pt seen by pt and will need rehab - has gram neg uti - Exam Vital signs and Labs for Last 24 Hours: Temp Pulse Resp BP Pulse Ox 97.9 F 86 20 157/99 H 92 L 07/01/22 08:00 07/01/22 08:00 07/01/22 08:00 07/01/22 08:00 07/01/22 08:00 Laboratory Results - last 24 hr 06/29/22 05:13: Urine Color Yellow, Urine Appearance Sl cloudy, Urine pH 6.0, Ur Specific [place] 1.015, Urine Protein Negative, Urine Glucose (UA) Negative, Urine Ketones Negative, Urine Blood Negative, Urine Nitrate Negative, Urine Bilirubin Negative, Urine Urobilinogen 0.2, Ur Leukocyte Esterase Negative, Urine WBC 10-20, Ur Squamous Epith Cells 5-10, Urine Bacteria 2+ 07/01/22 06:25: WBC 12.2 H D, RBC 4.39, Hgb 12.9, Hct 39.5, MCV 90.0, MCH 29.5, MCHC 32.8, RDW 15.6, Plt Count 364, MPV 8.6, Neut % (Auto) 87.9 H, Lymph % (Auto) 7.0 L, [place] % (Auto) 4.1, Eos % (Auto) 0.8, Baso % (Auto) 0.2, Neut # (Auto) 10.8 H, Lymph # (Auto) 0.9, [place] # (Auto) 0.5, Eos # (Auto) 0.1, Baso # (Auto) 0.0, Total Counted 100, Neutrophils % (Manual) 89 H, Lymphocytes % (Manual) 10, Monocytes % (Manual) 1 L, Platelet Estimate Normal, RBC Morphology Normal 07/01/22 06:25: Sodium 141, Potassium 3.6, Chloride 108 H, Carbon Dioxide 31 H, Anion Gap 5.6, BUN 13 D, Creatinine 0.40 L, Estimated Creat Clear 67, Estimated GFR 157, Est GFR ( Amer) 190 D, Glucose 183 H D, Calcium 9.3, Total Bilirubin < 0.1 L, AST 20 D, ALT 16 D, Alkaline Phosphatase 81, Total Protein 5.9 L, Albumin 3.4 L, Globulin 2.5, Albumin/Globulin Ratio 1.4 I & O for Last 24 hours: Intake & Output 06/29/22 06/30/22 07/01/22 07/02/22 11:59 11:59 11:59 11:59 Intake Total 1320 / 1320 1560 / 1560 Balance 1320 / 1320 1560 / 1560 Weight 179 lb 14.355 oz 184 lb 9.6 oz 185 lb 3.2 oz Microbiology Reports for the Last 24 Hours: Microbiology 06/30/22 10:20 Sputum - Expectorated Sputum Gram Stain - Final 06/30/22 10:20 Sputum - Expectorated Sputum Sputum Culture - Preliminary 06/29/22 05:13 Urine,Catheterized Urine Culture - Preliminary Gram Negative Rods 06/29/22 04:50 Blood Blood Culture - Preliminary NO GROWTH AFTER 48 HOURS 06/29/22 04:50 Blood Blood Culture - Preliminary NO GROWTH AFTER 48 HOURS - Constitutional no acute distress - *Routine HEENT Exam Head: Present: normocephalic Eye: Present: EOMI, PERRL ENT: Present: mucous membranes dry - *Routine Neck Exam Absent: JVD - *Routine Respiratory Exam Present: decreased breath sounds - *Routine Cardiovascular Exam Present: RRR, murmur - *Routine Extremities Exam Absent: calf tenderness - *Routine Skin Exam Present: intact - *Routine Neurological Exam Present: alert, CN II-XII intact - Routine Psychiatric Exam Present: cooperative Assessment and Plan (1) RLL pneumonia Status: Acute Qualifiers: Pneumonia type: due to unspecified organism Qualified Code(s): J18.9 - Pneumonia, unspecified organism Category: Medical Code(s): J18.1 - Lobar pneumonia, unspecified organism (2) COPD with acute exacerbation Status: Chronic Category: Medical Code(s): J44.1 - Chronic obstructive pulmonary disease with (acute) exacerbation (3) Lumbar radiculopathy Status: Chronic Category: Medical Code(s): M54.16 - Radiculopathy, lumbar region (4) UTI (urinary tract infection) Status: Acute Qualifiers: Urinary tract infection type: site unspecified Hematuria presence: without hematuria Qualified Code(s): N39.0 - Urinary tract infection, site not specified Category: Medical Code(s): N39.0 - Urinary tract infection, site not specified (5) Tobacco dependence Status: Chronic Category: Medical Code(s): F17.200 - Nicotine dependence, unspecified, uncomplicate
[2022-07-01 12:34] LABS: POC Glucose,Bedside 159 (70-110)
--- NOTE | 2022-07-01 14:18 | PC.NURSE ---
rounded on patient. no concerns or questions. noted to be upset about md suggestions for rehab placement, stating she planned to go home. states she has always had a balance problem and that her toes were the cause of most recent falls. no complaints. requested more sweet tea and this was gotten for patient. patient is up to chair. encouraged her to ring out as needed.
--- NOTE | 2022-07-01 15:42 | PC.NURSE ---
Pt possibly going to rehab in [facility] today is the plan and pt is agreeable to that. Have attempted to call numbers in chart and got no response. VSS. Pt has been up to chair with therapy. Remains on 2 L NC. CB i8s w/in easy reach.
[2022-07-02 03:47] VITALS: BP 146/60; PULSE 70; RESP 18; TEMP 36.9; O2SAT 96
--- NOTE | 2022-07-02 04:30 | PC.NURSE ---
No acute changes from previous assessment. Pt has rested intermittently over night. Has been alert and oriented x4 with periods of mild confusion. Lung sounds are diminished throughout with expiratory wheezes, but tolerating room air well. Has c/o pain once this shift and was medicated per JAN for pain. ambulated with 1 assist to bedside commode. VSS. call guzman within reach.
[2022-07-02 05:08] VITALS: BMI 28.9
[2022-07-02 06:14] VITALS: PULSE 70; PULSE 73; O2SAT 95
[2022-07-02 07:24] VITALS: BP 174/87; PULSE 81; RESP 18; TEMP 36.7; O2SAT 92
--- NOTE | 2022-07-02 07:27 | PC.NURSE ---
RN aware of elevated bp.
[2022-07-02 08:00] VITALS: O2SAT 96
--- NOTE | 2022-07-02 08:12 | HMH.DCSUM ---
General - General Admission date:: 06/29/22 HPI HPI: Patient is a 71-year-old white female, very poor historian, who was admitted with severe intractable back pain following several falls at home. Patient relays that she lives at home with her son and has sustained about 3 falls. She has severe back pain unrelieved with her home regimen, and exacerbated by movement. Nursing staff notes that she screams in pain being repositioned on the bed. Urinalysis is suggestive of UTI. Chest film is suggestive of a right basilar pneumonia. Patient has a history of COPD and is a heavy smoker. Also gives a history of asthma and coronary artery disease. Objective Vital signs: Temp Pulse Resp BP Pulse Ox 98.1 F 81 18 174/87 H 92 L 07/02/22 07:24 07/02/22 07:24 07/02/22 07:24 07/02/22 07:24 07/02/22 07:24 Results Labs on day of discharge: Labs from last 24 hours 07/01/22 11:58 POC Glucose 159 H Preliminary micro results at discharge 06/30/22 10:20 Sputum Culture - Preliminary Sputum - Expectorated Sputum 06/29/22 04:50 Blood Culture - Preliminary Blood NO GROWTH AFTER 48 HOURS 06/29/22 04:50 Blood Culture - Preliminary Blood NO GROWTH AFTER 48 HOURS DS: Diagnosis - Discharge Diagnosis (1) RLL pneumonia Status: Acute (2) COPD with acute exacerbation Status: Chronic (3) Lumbar radiculopathy Status: Chronic (4) UTI (urinary tract infection) Status: Acute (5) Tobacco dependence Status: Chronic (6) Fall Status: Acute (7) COPD (chronic obstructive pulmonary disease) Status: Chronic (8) Chronic low back pain Status: Chronic (9) Decreased mobility Status: Chronic (10) Generalized anxiety disorder Status: Chronic (11) Tobacco abuse Status: Chronic (12) Urinary incontinence Status: Chronic (13) Gram-negative infection Status: Acute Discharge Plan - Patient Discharge Instructions - Follow up Plan Home Medications: Home Medications Medication Instructions Recorded Confirmed Type Aspirin [Low Dose Aspirin EC] 81 mg PO DAILY 09/12/21 06/29/22 History Cholecalciferol (Vitamin D3) 25 mcg PO DAILY 09/12/21 06/29/22 History [Vitamin D3 1,000 Unit Cap] rosuvastatin 10 mg tablet 10 mg PO HS #90 tab 04/02/22 06/29/22 Rx alprazolam 0.5 mg tablet 0.5 mg PO TID #90 tab 06/10/22 06/29/22 Rx hydrocodone 7.5 mg-acetaminophen 1 tab PO TID #90 tab 06/10/22 06/29/22 Rx 325 mg tablet albuterol sulfate 90 mcg/actuation 2 inh INHALATION Q4H PRN #8.5 g 06/21/22 06/29/22 Rx aerosol inhaler budesonide-formoterol HFA 160 2 inh INHALATION BID #10.2 g 06/21/22 06/29/22 Rx mcg-4.5 mcg/actuation aerosol inhaler ergocalciferol (vitamin D2) 1,250 1,250 mcg PO WEEKLY #14 cap 06/21/22 06/29/22 Rx mcg (50,000 unit) capsule quetiapine 100 mg tablet 300 mg PO HS #90 tab 06/21/22 06/29/22 Rx Escitalopram Oxalate 20 mg PO DAILY 06/29/22 06/29/22 History Gabapentin 800 mg PO TID 06/29/22 06/29/22 History Levothyroxine Sodium [Synthroid 50 mcg PO DAILY 06/29/22 06/29/22 History 50mcg (0.05mg) tab] Omeprazole 20 mg PO DAILY 06/29/22 06/29/22 History Oxybutynin Chloride 5 mg PO DAILY 06/29/22 06/29/22 History Tiotropium [place] [Spiriva 2 inh IH DAILY 06/29/22 06/29/22 History Respimat] Prescriptions/Medication Reconciliation: No Action rosuvastatin 10 mg tablet 10 mg PO HS #90 tab quetiapine 100 mg tablet 300 mg PO HS #90 tab ergocalciferol (vitamin D2) 1,250 mcg (50,000 unit) capsule 1,250 mcg PO WEEKLY #14 cap hydrocodone 7.5 mg-acetaminophen 325 mg tablet 1 tab PO TID #90 tab alprazolam 0.5 mg tablet 0.5 mg PO TID #90 tab albuterol sulfate 90 mcg/actuation aerosol inhaler 2 inh INHALATION Q4H PRN #8.5 g PRN Reason: Shortness Of Breath Or Wheezing budesonide-formoterol HFA 160 mcg-4.5 mcg/actuation aerosol inhaler 2 inh INHALATION BID #10.2 g Levothyroxine Sodium [
--- NOTE | 2022-07-02 08:24 | PC.NURSE ---
md aware of urine culture and need for new antibiotics.
--- NOTE | 2022-07-02 08:30 | XR_ITS ---
FINAL REPORT CLINICAL HISTORY: Confirm PICC line placement COMPARISON: 06/30/2022 FINDINGS: SINGLE-VIEW CHEST The heart size is normal. The mediastinum is normal. Left PICC line tip terminates in the SVC. There are chronic changes at both bases. There is scarring at the left base. There is no pneumothorax. IMPRESSION: Left PICC line tip terminates in the SVC. Reviewed, Interpreted and Dictated by Binh Taylor MD Transcribed by Analia Escobar Authenticated and [facility]
--- NOTE | 2022-07-02 09:22 | HMH.PHACONS ---
- Pharmacy Consult Date: 07/02/22 Time: : Referring provider: FIFI Reason for Consult:: GENTAMICIN CONSULT FOR PSEUDOMONAS UTI Allergies and ADEs:: Allergies Allergy/AdvReac Type Severity Reaction Status Date / Time metronidazole Allergy Unknown I-HIVES Verified 06/21/22 13:17 nitrofurantoin Allergy Unknown Unknown Verified 06/21/22 13:17 [From MACROBID] allergy reaction Home Medications:: Home Medications Medication Instructions Recorded Confirmed Type Aspirin [Low Dose Aspirin EC] 81 mg PO DAILY 09/12/21 06/29/22 History Cholecalciferol (Vitamin D3) 25 mcg PO DAILY 09/12/21 06/29/22 History [Vitamin D3 1,000 Unit Cap] rosuvastatin 10 mg tablet 10 mg PO HS #90 tab 04/02/22 06/29/22 Rx alprazolam 0.5 mg tablet 0.5 mg PO TID #90 tab 06/10/22 06/29/22 Rx hydrocodone 7.5 mg-acetaminophen 1 tab PO TID #90 tab 06/10/22 06/29/22 Rx 325 mg tablet albuterol sulfate 90 mcg/actuation 2 inh INHALATION Q4H PRN #8.5 g 06/21/22 06/29/22 Rx aerosol inhaler budesonide-formoterol HFA 160 2 inh INHALATION BID #10.2 g 06/21/22 06/29/22 Rx mcg-4.5 mcg/actuation aerosol inhaler ergocalciferol (vitamin D2) 1,250 1,250 mcg PO WEEKLY #14 cap 06/21/22 06/29/22 Rx mcg (50,000 unit) capsule quetiapine 100 mg tablet 300 mg PO HS #90 tab 06/21/22 06/29/22 Rx Escitalopram Oxalate 20 mg PO DAILY 06/29/22 06/29/22 History Gabapentin 800 mg PO TID 06/29/22 06/29/22 History Levothyroxine Sodium [Synthroid 50 mcg PO DAILY 06/29/22 06/29/22 History 50mcg (0.05mg) tab] Omeprazole 20 mg PO DAILY 06/29/22 06/29/22 History Oxybutynin Chloride 5 mg PO DAILY 06/29/22 06/29/22 History Tiotropium [place] [Spiriva 2 inh IH DAILY 06/29/22 06/29/22 History Respimat] Height: 1.7 m Weight: 83.546 kg Laboratory Results:: Laboratory Results - last 24 hr 07/01/22 11:58: POC Glucose 159 H Medical History: Reports:: Anxiety, Asthma, Atherosclerotic Heart Disease, Chronic Obstructive Pulmonary Disease (COPD), Coronary Artery Disease, Hyperlipidemia, Hypertension, Migraine, Urinary Tract Infection Denies:: Cancer, Diabetes Mellitus Type 1, Diabetes Mellitus Type 2, Internal Pacemaker, MRSA Assessment and Plan (1) RLL pneumonia Status: Acute Qualifiers: Pneumonia type: due to unspecified organism Qualified Code(s): J18.9 - Pneumonia, unspecified organism Category: Medical Code(s): J18.1 - Lobar pneumonia, unspecified organism (2) COPD with acute exacerbation Status: Chronic Category: Medical Code(s): J44.1 - Chronic obstructive pulmonary disease with (acute) exacerbation (3) Lumbar radiculopathy Status: Chronic Category: Medical Code(s): M54.16 - Radiculopathy, lumbar region (4) UTI (urinary tract infection) Status: Acute Qualifiers: Urinary tract infection type: site unspecified Hematuria presence: without hematuria Qualified Code(s): N39.0 - Urinary tract infection, site not specified Category: Medical Code(s): N39.0 - Urinary tract infection, site not specified (5) Tobacco dependence Status: Chronic Category: Medical Code(s): F17.200 - Nicotine dependence, unspecified, uncomplicated (6) Fall Status: Acute Qualifiers: Encounter type: sequela Qualified Code(s): W19.XXXS - Unspecified fall, sequela Category: Medical Code(s): W19.XXXA - Unspecified fall, initial encounter (7) COPD (chronic obstructive pulmonary disease) Status: Chronic Qualifiers: COPD type: chronic bronchitis Chronic bronchitis type: simple Qualified Code(s): J41.0 - Simple chronic bronchitis Category: Medical Code(s): J44.9 - Chronic obstructive pulmonary disease, unspecified (8) Chronic low back pain Status: Chronic Qualifiers: Back pain laterality: bilateral Sciatica presence: with sciatica Sciatica laterality: bilateral sciatica Qualified Code(s): M54.42 - Lumbago with sciatica, left side; M54.41 - Lumbago with sciatica, right side;
[2022-07-02 09:29] LABS: Coronavirus 19, PCR Not Detected (NotDetected); Influenza A, PCR Not Detected (NotDetected); Influenza B, PCR Not Detected (NotDetected)
--- NOTE | 2022-07-02 13:28 | HMH.DCSUM ---
General - General Admission date:: 06/29/22 Discharge date: 07/02/22 HPI HPI: Patient is a 71-year-old white female, very poor historian, who was admitted with severe intractable back pain following several falls at home. Patient relays that she lives at home with her son and has sustained about 3 falls. She has severe back pain unrelieved with her home regimen, and exacerbated by movement. Nursing staff notes that she screams in pain being repositioned on the bed. Urinalysis is suggestive of UTI. Chest film is suggestive of a right basilar pneumonia. Patient has a history of COPD and is a heavy smoker. Also gives a history of asthma and coronary artery disease. Hospital Course Hospital Course: pt slowly improved with ivf and meds - pt was noted to have uti- pseudomonas aeroginosa and will require iv abx - pt with slow improvement with back pain and was able to do therapy - pt d/c to [facility] - labs and xray stable -pt improved with resp status Objective Vital signs: Temp Pulse Resp BP Pulse Ox 98.1 F 81 18 174/87 H 96 07/02/22 07:24 07/02/22 07:24 07/02/22 07:24 07/02/22 07:24 07/02/22 08:00 no acute distress, cooperative - *Routine HEENT Exam Head: Present: normocephalic Eye: Present: EOMI, PERRL. Absent: conjunctival icterus ENT: Present: mucous membranes moist - *Routine Neck Exam Present: supple. Absent: JVD - *Routine Respiratory Exam Present: rhonchi - *Routine Cardiovascular Exam Present: RRR, murmur, S4 - *Routine Abdominal Exam Present: soft - *Routine Extremities Exam Absent: calf tenderness - *Routine Skin Exam Present: intact - *Routine Neurological Exam Present: alert, CN II-XII intact, moving all extremities - Routine Psychiatric Exam Present: cooperative Results Labs on day of discharge: Labs from last 24 hours 07/02/22 09:22 SARS-CoV-2 (PCR) Not detected Influenza A Untype (PCR) Not detected Influenza Type B (PCR) Not detected Preliminary micro results at discharge 06/30/22 10:20 Sputum Culture - Preliminary Sputum - Expectorated Sputum 06/29/22 04:50 Blood Culture - Preliminary Blood NO GROWTH AFTER 48 HOURS 06/29/22 04:50 Blood Culture - Preliminary Blood NO GROWTH AFTER 48 HOURS DS: Diagnosis - Discharge Diagnosis (1) RLL pneumonia Status: Acute (2) COPD with acute exacerbation Status: Chronic (3) Lumbar radiculopathy Status: Chronic (4) UTI (urinary tract infection) Status: Acute (5) Tobacco dependence Status: Chronic (6) Fall Status: Acute (7) COPD (chronic obstructive pulmonary disease) Status: Chronic (8) Chronic low back pain Status: Chronic (9) Decreased mobility Status: Chronic (10) Generalized anxiety disorder Status: Chronic (11) Tobacco abuse Status: Chronic (12) Urinary incontinence Status: Chronic (13) Gram-negative infection Status: Acute (14) Pseudomonas urinary tract infection Status: Acute Discharge Plan - Patient Discharge Instructions ACTIVITY: Continue current activity DIET: continue same diet - Follow up Plan Disposition: er SNF Condition at discharge:: Improved Home Medications: Home Medications Medication Instructions Recorded Confirmed Type Aspirin [Low Dose Aspirin EC] 81 mg PO DAILY 09/12/21 06/29/22 History Cholecalciferol (Vitamin D3) 25 mcg PO DAILY 09/12/21 06/29/22 History [Vitamin D3 1,000 Unit Cap] rosuvastatin 10 mg tablet 10 mg PO HS #90 tab 04/02/22 06/29/22 Rx alprazolam 0.5 mg tablet 0.5 mg PO TID #90 tab 06/10/22 06/29/22 Rx hydrocodone 7.5 mg-acetaminophen 1 tab PO TID #90 tab 06/10/22 06/29/22 Rx 325 mg tablet albuterol sulfate 90 mcg/actuation 2 inh INHALATION Q4H PRN #8.5 g 06/21/22 06/29/22 Rx aerosol inhaler budesonide-formoterol HFA 160 2 inh INHALATION BID #10.2 g 06/21/22 06/29/22 Rx mcg-4.5 mcg/actuation aerosol inhaler ergocalciferol
--- NOTE | 2022-07-02 14:27 | PC.NURSE ---
ATTEMPTED TO CALL PT [facility]. NO ANSWER. ATTEMPTED TO CALL THREE CONTACTS THAT WERE LISTED.
--- NOTE | 2022-07-02 14:46 | PC.NURSE ---
CARE MANAGEMENT NOTIFIED THAT [facility] TOLD THIS RN PT WOULD NEED PREAUTHORIZATION FOR AMBULANCE TRANSPORT
== END 2022-07-02 15:30 ==
LOC: ER 07:32 → 2ND 07:45
PROVIDERS: Admitting Provider Emergency Medicine; Emergency Provider Emergency Medicine; PCP Nurse Practitioner Family; Visit Provider Family Medicine
DX: J44.1 Chronic obstructive pulmonary disease with (acute) exacerbation (principal); F17.210 Nicotine dependence, cigarettes, uncomplicated; R29.6 Repeated falls; N39.0 Urinary tract infection, site not specified; I25.10 Atherosclerotic heart disease of native coronary artery without angina pectoris; I10 Essential (primary) hypertension; G43.909 Migraine, unspecified, not intractable, without status migrainosus; J18.9 Pneumonia, unspecified organism; R26.89 Other abnormalities of gait and mobility; M54.16 Radiculopathy, lumbar region; M54.42 Lumbago with sciatica, left side; M54.41 Lumbago with sciatica, right side; F41.1 Generalized anxiety disorder; R06.09 Other forms of dyspnea
CPT/HCPCS: G0378; 36410; 36415; 36569; 71045; 80048; 80053; 81001; 82803; 82962; 83605; 83880; 84484; 85007; 85025; 87040; 87070; 87086; 87088; 87186; 87205; 93005; 94640; 94761; 97110; 97116; 97161; 99285; C1751; C9803; J1956; U0003; U0005

== ENCOUNTER 2022-07-11 13:20 | Observation (INO) | payer MEDICARE, OTHER, SELFPAY ==
[2022-07-11] VITALS (17 sets, daily range): BP systolic 99–149; BP diastolic 30–82; PULSE 65–95; RESP 13–21; TEMP 36.8–36.9; O2SAT 89–98; BMI 36.0; BMI 30.6
--- NOTE | 2022-07-11 13:27 | XR_ITS ---
FINAL REPORT CLINICAL HISTORY: ams, PNA, rales COMPARISON: July 02, 2022 FINDINGS: A single portable view of the chest was obtained. A left-sided PICC line remains in place. The heart size and pulmonary vascularity are within normal limits. The mediastinum is within normal limits. There are worsening bibasilar, left greater than right, pulmonary opacities consistent with worsening pneumonia or atelectasis. There is a small left pleural effusion, worse. The bony thorax is intact. IMPRESSION: Findings consistent with worsening, left greater than right, bibasilar pneumonia or atelectasis. Small left pleural effusion, worse. Reviewed, Interpreted and Dictated by Luis Billingsley III, MD Transcribed by Jacey Villagran Authenticated and [facility]
--- NOTE | 2022-07-11 13:28 | ECG_ITS ---
APPROVED REPORT Exam: Resting ECG HR:70 bpm ECG Measurements Heart Rate 70 AXES WA 149 P 40 QRSd 97 QRS 63 QT 419 T 46 QTc 440 Conclusion SINUS RHYTHM NORMAL ECG UNCONFIRMED REPORT Electronically signed by : Janes Delgado MD 07/12/2022 17:09:55
--- NOTE | 2022-07-11 13:30 | PC.NURSE ---
Per EMS pt had her medicine (xanax, gabapentin and norco) in her purse and EMS states that due to her purse being her personal belonging they could not get into it and was not aware of her medicine in her purse.
[2022-07-11 13:48] LABS: Coronavirus 19, PCR Not Detected (NotDetected); Influenza A, PCR Not Detected (NotDetected); Influenza B, PCR Not Detected (NotDetected)
[2022-07-11 13:50] LABS: Microscopic, Urine URINE MICROSCOPIC (MICROSCOPIC)
[2022-07-11 13:52] LABS: Appearance,Urine SL CLOUDY (Clear); Bilirubin,Urine Negative (Negative); Blood, Urine Negative (Negative); Color,Urine YELLOW (Yellow); Glucose,Urine (UA) Negative (Negative); Ketones,Urine Negative (Negative); Leukocyte Esterase,Urine TRACE (Negative); Nitrate,Urine Negative (Negative); Protein,Urine Negative (Negative); Urobilinogen,Urine 0.2 EU/dl (0.2)
--- NOTE | 2022-07-11 13:58 | HMH.EDGENADL ---
Discharge Plan Disposition Patient Disposition: Admitted As Inpatient Condition: Fair Prescriptions Prescriptions: No Action albuterol sulfate 90 mcg/actuation HFA aerosol inhaler 2 inh INHALATION Q4H PRN (Reason: Shortness Of Breath Or Wheezing) Qty: 8.5 2RF budesonide-formoterol 160-4.5 mcg/actuation HFA aerosol inhaler 2 inh INHALATION BID Qty: 10.2 3RF Rx Instructions: INHALE 2 PUFFS 2 TIMES EACH DAY ergocalciferol (vitamin D2) 1,250 mcg (50,000 unit) capsule 1,250 mcg PO WEEKLY Qty: 14 0RF hydrocodone-acetaminophen 7.5-325 mg tablet 1 tab PO TID Qty: 90 0RF gabapentin 800 mg tablet 800 mg PO TID Qty: 90 0RF oxybutynin chloride 5 MG tablet 5 mg PO DAILY nicotine 21 MG/PATCH patch 24 hour 21 mg TD DAILYP PRN (Reason: Nicotine Cravings) 0RF ipratropium-albuterol 3 ML solution for nebulization 3 ml IH TIDRT citalopram 40 MG tablet 40 mg PO DAILY quetiapine 100 MG tablet 300 mg PO HS alprazolam 0.5 MG tablet 0.5 mg PO TID levothyroxine 50 MCG tablet 50 mcg PO DAILYDM pantoprazole 40 MG tablet,delayed release (DR/EC) 40 mg PO DAILY pravastatin 20 MG tablet 20 mg PO HS aspirin 81 MG tablet,delayed release (DR/EC) 81 mg PO DAILY cholecalciferol (vitamin D3) 1,000 UNIT capsule 25 mcg PO DAILY Referrals Follow up/Referrals: Mark Mcclain MD [Primary Care Provider] - See instructions Clinical Impressions Clinical Impression: Pneumonia Qualifiers: Pneumonia type: due to unspecified organism Laterality: bilateral Lung location: lower lobe of lung Qualified Code(s): J18.9 - Pneumonia, unspecified organism UTI (urinary tract infection) Qualifiers: Urinary tract infection type: acute cystitis Hematuria presence: without hematuria Qualified Code(s): N30.00 - Acute cystitis without hematuria Discharge ED Provider: Wale Fontana General Adult HPI General Chief complaint: Overdose Stated complaint: lethargic Time Seen by Provider: 07/11/22 13:30 Mode of Arrival: EMS Source of Information: Patient and EMS Limitations: No Limitations Description of Symptoms (Recalled from ER Triage Doc. by RN): per EMS pt was found with pill bottles of xanax, gabapentin and pain medicine out of her purse. USP is unsure how many they took or what the doseage was. She has become more lethargic. History of Present Illness HPI narrative: This is a 71-year-old female with history of hypertension, CAD, hyperlipidemia, type 2 diabetes, COPD, anxiety, hypothyroidism, numerous UTIs/pneumonia, diverticulosis, presenting with concern for ingestion. Patient was found with empty bottles of Xanax, gabapentin and altered at detention. Not sure how much she took, but patient appeared more lethargic than usual, so sent to the [facility] for further evaluation Related Data Home Medications Medication Instructions Recorded Confirmed aspirin 81 mg tablet,delayed 81 mg PO DAILY Heart disease 09/12/21 07/11/22 release cholecalciferol (vitamin D3) 25 25 mcg PO DAILY Supplement 09/12/21 07/11/22 mcg (1,000 unit) capsule oxybutynin chloride 5 mg tablet 5 mg PO DAILY overactive bladder 06/29/22 07/11/22 alprazolam 0.5 mg tablet 0.5 mg PO TID Anxiety 07/11/22 07/11/22 citalopram 40 mg tablet 40 mg PO DAILY Anxiety 07/11/22 07/11/22 ipratropium 0.5 mg-albuterol 3 mg 3 ml IH TIDRT soa 07/11/22 07/11/22 (2.5 mg base)/3 mL nebulization soln levothyroxine 50 mcg tablet 50 mcg PO DAILYDM thyroid 07/11/22 07/11/22 pantoprazole 40 mg tablet,delayed 40 mg PO DAILY GERD 07/11/22 07/11/22 release pravastatin 20 mg tablet 20 mg PO HS Cholesterol 07/11/22 07/11/22 quetiapine 100 mg tablet 300 mg PO HS Pain 07/11/22 07/11/22 Previous Rx's Medication Instructions Recorded albuterol sulfate 90 mcg/actuation 2 inh INHALATION Q4H PRN Shortness 06/21/22 aerosol inhaler Of Breath Or Wheezing ##8.5 budesonide-formoterol HFA
--- NOTE | 2022-07-11 13:58 | PC.NURSE ---
RESP CALLED FOR DUO NEB
[2022-07-11 13:59] LABS: Alanine Aminotransferase 16 U/L (12-78); Albumin Level 3.4 g/dl (3.5-5.0); Albumin/Globulin Ratio 1.3 (1.1-1.8); Alkaline Phosphatase 99 U/L (38-126); Anion Gap 6.1 mEq/L (5-15); Aspartate Amino Transferase 44 U/L (14-36); Blood Urea Nitrogen 10 mg/dl (7-17); Calcium 9.1 mg/dl (8.4-10.2); Carbon Dioxide 36 mmol/L (22.0-30.0); Chloride 101 mmol/L (98-107); Creatinine Clearance Estimated 76 mL/min (50-200); Estimated Glomerular Filt Rate 98 ml/min (>60); GFR (African American) 119 ML/MIN (>60); Globulin 2.6 g/dL (1.3-3.2); Glucose 87 mg/dl (74-100); Potassium 4.1 mmoL/L (3.5-5.1); Sodium 139 mmol/L (136-145)
--- NOTE | 2022-07-11 14:01 | PC.NURSE ---
RESP HERE FOR ARINA CARPENTER
[2022-07-11 14:02] LABS: Bacteria,Urine 3+ /lpf
[2022-07-11 14:03] LABS: Bilirubin,Total < 0.1 mg/dl (0.2-1.3); Lactic Acid < 0.5 mmol/L (0.7-2.1)
[2022-07-11 14:05] LABS: Basophils # 0.1 K/mm3 (0-0.2); Basophils % 0.5 % (0.1-2.0); Eosinophils # 0.2 K/mm3 (0.0-0.4); Eosinophils % 1.5 % (0.1-12.0); Hemoglobin 12.1 g/dL (12.2-16.2); Lymphocytes # 2.9 K/mm3 (0.7-4.5); Lymphocytes % 20.2 % (10-50); Mean Corpuscular HGB Conc 31.8 g/dL (31.8-35.4); Mean Corpuscular Hemoglobin 28.9 pg (27.0-31.2); Mean Corpuscular Volume 90.9 fl (81-99); Mean Platelet Volume 8.3 fl (7.4-10.4); Monocytes # 1.1 K/mm3 (0.1-1.0); Monocytes % 7.5 % (1.7-9.3); Neutrophils % 70.2 % (37.0-80.0); Platelet Count 248 K/mm3 (142-424); Red Blood Count 4.18 M/mm3 (4.20-5.40); Red Cell Distribution Width 15.6 % (11.5-17.5); White Blood Count 14.2 K/mm3 (4.8-10.8)
[2022-07-11 14:14] LABS: Troponin I < 0.01 ng/ml (0.00-0.034)
[2022-07-11 14:16] LABS: T4 (Thyroxine) 6.5 ug/dl (5.53-11.0)
[2022-07-11 14:16] LABS: VBG Base Excess 2.7 mmol/L (-2.4-2.3); VBG HCO3 27.8 mmol/L (23-30); VBG Oxygen Saturation 89.1 % (50-70); VBG PCO2 47.9 mmol/L (35-51); VBG PH 7.38 mmol/L (7.31-7.41); VBG PO2 55.2 mmol/L (28-40); VBG Total CO2 29.2 mmol/L (23-27)
[2022-07-11 14:30] LABS: Thyroid Stimulating Hormone 1.65 uIU/mL (0.465-4.68)
[2022-07-11 15:05] LABS: NT Pro Brain Natriuretic Pep. 93.6 pg/mL (0-125)
--- NOTE | 2022-07-11 15:21 | PC.NURSE ---
dr emerita mijares
--- NOTE | 2022-07-11 15:45 | PC.NURSE ---
Son at discussing with pt about getting her bank card at the snf. He had a signed paper that he wrote stating that he was allowed to get her bank card from them. Son had asked me to sign as a witness that she signed this paper stating the above. At this time I did not sign the paper to witness.
--- NOTE | 2022-07-11 15:58 | PC.NURSE ---
3rd page for dr felder
--- NOTE | 2022-07-11 16:03 | PC.NURSE ---
MESSAGE LEFT FOR DR SHAW
[2022-07-11 16:53] LABS: Amphetamine/Metha Screen,Urine Negative ng/ml (<1000)
[2022-07-11 16:54] LABS: Barbiturates Screen,Urine Negative ng/ml (<200); Benzodiazepines Screen,Urine Positive ng/ml (<200)
[2022-07-11 16:55] LABS: Cannabinoid Screen,Urine Negative ng/ml (<50)
[2022-07-11 16:56] LABS: Cocaine Screen,Urine Negative ng/ml (<300); Methadone Screen,Urine Negative ng/ml (<300)
[2022-07-11 16:57] LABS: Opiate Screen,Urine Positive ng/ml (<300); Phencyclidine Screen,Urine Negative ng/ml (<25)
--- NOTE | 2022-07-11 17:00 | PC.NURSE ---
ROUNDED ON PT NO NEEEDDS AT THIS TIME
--- NOTE | 2022-07-11 18:03 | PC.NURSE ---
attempted to call report, nurse needs to call me back, spoke with Devorah
--- NOTE | 2022-07-11 18:17 | PC.NURSE ---
report called to Devorah GOULD
--- NOTE | 2022-07-11 18:38 | PC.NURSE ---
patient arrived to floor by stretcher from ED
--- NOTE | 2022-07-11 22:34 | PC.NURSE ---
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
[2022-07-12] VITALS (7 sets, daily range): BP systolic 101–108; BP diastolic 47–60; PULSE 62–80; RESP 14–16; TEMP 36.4–36.6; O2SAT 92–98; BMI 30.5
--- NOTE | 2022-07-12 07:30 | EXP.PHA.VTE ---
[facility] Pharmacy VTE Monitoring Patient Demographics Admission date: 07/11/22 Report Date: 07/12/22 Time: 07:30 Patient Allergies metronidazole Allergy (Unknown, Verified 06/21/22 13:17) I-HIVES nitrofurantoin [From MACROBID] Allergy (Unknown, Verified 06/21/22 13:17) Unknown allergy reaction Height: 1.63 m Weight: 81.221 kg Current Active Problems (Updated 07/11/22 @ 22:34 by Lenard Sorenson RN) Pneumonia (Acute) UTI (urinary tract infection) (Acute) VTE Risk Labs: VTE Related Lab Results Hgb 12.1 g/dL (12.2-16.2) L 07/11/22 13:36 Hct 38.0 % (37.0-47.0) 07/11/22 13:36 Plt Count 248 K/mm3 (142-424) 07/11/22 13:36 BUN 10 mg/dl (7-17) 07/11/22 13:36 Creatinine 0.60 mg/dl (0.52-1.04) 07/11/22 13:36 Estimated Creat Clear 76 mL/min (50-200) 07/11/22 13:36 Was VTE Risk Assessment Performed: Yes VTE Score: 6 VTE Risk Level: Moderate Risk Prophylaxis VTE Prophylaxis Ordered?: Yes Types of VTE Prophylaxis: TEDS Knee High Location of Applied Device: Bilateral Lower Extremeties
--- NOTE | 2022-07-12 07:42 | SW/DCPLANNER ---
Addendum entered by Dinorah Reardon 07/12/22 09:12: This patient will return to [facility] today SNF level of care. COVID swab has been ordered prior to discharge. Original Note: This patient currently resides at [facility] SNF level of care. Per Sania w/ [facility] this patient is able to return to [facility] once medically stable for discharge. Discharge date is unknown at this time.
--- NOTE | 2022-07-12 08:02 | PC.NURSE ---
Pt alert to self. Pt has not voiced any c/o to staff. Call light within reach. Bed alarm on for safety
[2022-07-12 09:14] LABS: Coronavirus 19, PCR Not Detected (NotDetected); Influenza A, PCR Not Detected (NotDetected); Influenza B, PCR Not Detected (NotDetected)
--- NOTE | 2022-07-12 09:18 | EXP.HPDC ---
General Admission date:: 07/11/22 Discharge date: 07/12/22 *Admission Date: 07/11/22 *Chief complaint: Lethargy and weakness *History of present illness: 71-year-old female patient found down at halfway. Staff reports she was lethargic and Guy, Dresher, and Xanax pill bottles were lying near. While in the emergency department chest x-ray revealed bilateral worsening pneumonia, she has been on gentamicin IV for previous UTI. She received Ceftriaxone and IV fluids in the emergency department. [facility] Medical History (Updated 07/11/22 @ 22:34 by Lenard Sorenson, RN) Decreased mobility Emphysema/COPD Hyperlipidemia Hypertension Hypothyroid Low back pain radiating to both legs Tobacco dependence Urinary incontinence Social History (Updated 07/11/22 @ 22:40 by Lenard Sorenson RN) Smoking Status: Never smoker second hand exposure: Yes alcohol intake: never substance use type: denies use current occupational status: retired Travel in the last 8 weeks: None household members: family housing: halfway caffeine: Yes Review of Systems Review of Systems Review of systems:: unable to obtain Review of systems (narrative): Unable to obtain review of systems due to patient reports she was at halfway, next thing she knew she was in the hospital. She denies any concerns/needs before passing out. Exam Data for Last 24 hours Vital signs and Labs for Last 24 Hours: Temp Pulse Resp BP Pulse Ox 97.7 F 62 16 106/50 L 94 L 07/12/22 04:00 07/12/22 06:31 07/12/22 04:00 07/12/22 04:00 07/12/22 06:31 Laboratory Results - last 24 hr 07/11/22 13:27: Urine Color Yellow, Urine Appearance Sl cloudy, Urine pH 7.0, Ur Specific [place] 1.010, Urine Protein Negative, Urine Glucose (UA) Negative, Urine Ketones Negative, Urine Blood Negative, Urine Nitrate Negative, Urine Bilirubin Negative, Urine Urobilinogen 0.2, Ur Leukocyte Esterase Trace, Urine RBC None, Urine WBC 3-5, Ur Squamous Epith Cells None, Urine Bacteria 3+ 07/11/22 13:28: VBG pH 7.38, VBG pCO2 47.9, VBG pO2 55.2 H, VBG HCO3 27.8, VBG Total CO2 29.2 H, VBG O2 Saturation 89.1 H, VBG Base Excess 2.7 H 07/11/22 13:36: Troponin I < 0.01, TSH 1.65, Thyroxine (T4) 6.5 07/11/22 13:36: WBC 14.2 H, RBC 4.18 L, Hgb 12.1 L, Hct 38.0, MCV 90.9, MCH 28.9, MCHC 31.8, RDW 15.6, Plt Count 248, MPV 8.3, Neut % (Auto) 70.2, Lymph % (Auto) 20.2, [place] % (Auto) 7.5, Eos % (Auto) 1.5, Baso % (Auto) 0.5, Neut # (Auto) 10.0 H, Lymph # (Auto) 2.9, Republic # (Auto) 1.1 H, Eos # (Auto) 0.2, Baso # (Auto) 0.1 07/11/22 13:36: Sodium 139, Potassium 4.1, Chloride 101, Carbon Dioxide 36 H, Anion Gap 6.1, BUN 10, Creatinine 0.60, Estimated Creat Clear 76, Estimated GFR 98, Est GFR ( Amer) 119, Glucose 87, Calcium 9.1, Total Bilirubin < 0.1 L, AST 44 H, ALT 16, Alkaline Phosphatase 99, Total Protein 6.0 L, Albumin 3.4 L, Globulin 2.6, Albumin/Globulin Ratio 1.3 07/11/22 13:36: Lactate < 0.5 L 07/11/22 13:36: NT-Pro-B Natriuret Pep 93.6 07/11/22 13:36: Urine Opiates Screen Positive H, Urine Methadone Screen Negative, Ur Barbituates Screen Negative, Ur Phencyclidine Scrn Negative, Ur Amphetamines Screen Negative, U Benzodiazepines Scrn Positive H, Urine Cocaine Screen Negative, U Marijuana (THC) Screen Negative 07/11/22 13:39: SARS-CoV-2 (PCR) Not detected, Influenza A Untype (PCR) Not detected, Influenza Type B (PCR) Not detected I & O for Last 24 hours: Intake & Output 07/09/22 07/10/22 07/11/22 07/12/22 23:59 23:59 23:59 23:59 Intake Total 284 / 284 Output Total 750 / 750 850 / 850 Balance -750 / -466 -566 / -566 Weight 179 lb 3 oz 179 lb 1 oz Constitutional Constitutional: no acute distress and chronically ill appearing *Routine HEENT Exam Head: Present normocephalic Eye: Present EOMI ENT: Present mucous membranes moist *Routine Neck Exam Neck: Present full ROM; Absent JVD *Routine Respiratory Exam Respiratory: Present decreased breath sounds, rhonch
--- NOTE | 2022-07-16 13:57 | CARE MANAGER ---
Contacted [facility]. They state patient is doing well. The only thing they need is an order from Dr. Mcclain to discharge her PICC line. Requested this from Dr. Mcclain and he states he will take care of it. BRYANNA Villareal
== END 2022-07-12 14:58 ==
LOC: ER 15:56 → 2ND 17:33
PROVIDERS: Admitting Provider Family Medicine; Emergency Provider Emergency Medicine; PCP Emergency Medicine; Visit Provider Emergency Medicine
DX: J18.9 Pneumonia, unspecified organism (principal); N39.0 Urinary tract infection, site not specified; E11.9 Type 2 diabetes mellitus without complications; I10 Essential (primary) hypertension; E78.5 Hyperlipidemia, unspecified; J44.9 Chronic obstructive pulmonary disease, unspecified; E03.9 Hypothyroidism, unspecified; F17.210 Nicotine dependence, cigarettes, uncomplicated; Z79.899 Other long term (current) drug therapy; R06.9 Unspecified abnormalities of breathing; Z20.822 Contact with and (suspected) exposure to COVID-19
CPT/HCPCS: G0378; 71045; 80053; 80305; 81001; 82803; 83605; 83880; 84436; 84443; 84484; 85025; 87040; 87086; 87088; 87186; 93005; 94640; 99285; C9803; J0456; J0696; J1956; J3475; U0003; U0005

== ENCOUNTER 2022-08-01 00:31 | Emergency (ER) | payer MEDICARE, OTHER, SELFPAY ==
[2022-08-01] VITALS (11 sets, daily range): BP systolic 111–181; BP diastolic 70–109; PULSE 44–120; RESP 16–20; TEMP 36.9; O2SAT 93–97; BMI 29.7
[2022-08-01 00:58] LABS: Microscopic, Urine URINE MICROSCOPIC (MICROSCOPIC)
[2022-08-01 00:59] LABS: Appearance,Urine CLEAR (Clear); Bilirubin,Urine Negative (Negative); Blood, Urine Negative (Negative); Color,Urine YELLOW (Yellow); Glucose,Urine (UA) Negative (Negative); Ketones,Urine TRACE (Negative); Leukocyte Esterase,Urine Negative (Negative); Nitrate,Urine Negative (Negative); Protein,Urine Negative (Negative); Urobilinogen,Urine 0.2 EU/dl (0.2)
[2022-08-01 01:18] LABS: Basophils # 0.2 K/mm3 (0-0.2); Basophils % 0.9 % (0.1-2.0); Eosinophils # 0.2 K/mm3 (0.0-0.4); Hematocrit 42.8 % (37.0-47.0); Hemoglobin 13.5 g/dL (12.2-16.2); Lymphocytes # 1.9 K/mm3 (0.7-4.5); Lymphocytes % 10.5 % (10-50); Mean Corpuscular HGB Conc 31.5 g/dL (31.8-35.4); Mean Corpuscular Hemoglobin 28.7 pg (27.0-31.2); Mean Platelet Volume 7.8 fl (7.4-10.4); Monocytes # 1.3 K/mm3 (0.1-1.0); Neutrophils % 80.7 % (37.0-80.0); Platelet Count 390 K/mm3 (142-424); Red Cell Distribution Width 15.7 % (11.5-17.5); White Blood Count 18.6 K/mm3 (4.8-10.8)
--- NOTE | 2022-08-01 01:32 | XR_ITS ---
PROCEDURE INFORMATION: Exam: XR Chest Exam date and time: 08/01/2022 1:55 AM Age: 71 years old Clinical indication: Screening exam; Other screening; Additional info: Psych TECHNIQUE: Imaging protocol: Radiologic exam of the chest. Views: 1 view. COMPARISON: CR XR CHEST PORTABLE 07/11/2022 1:54 PM FINDINGS: Lungs: Lungs are hyperinflated. Clear parenchyma. Pleural spaces: Unremarkable. No pleural effusion. No pneumothorax. Heart/Mediastinum: Unremarkable. No cardiomegaly. Bones/joints: Unremarkable. IMPRESSION: Hyperinflated but clear lungs. No other acute cardiopulmonary abnormality.
--- NOTE | 2022-08-01 01:33 | ECG_ITS ---
APPROVED REPORT Exam: Resting ECG HR:118 bpm ECG Measurements Heart Rate 118 AXES [place] 146 P 75 QRSd 93 QRS 84 QT 340 T -73 QTc [address] DEVIATION AND MODERATE T-WAVE ABNORMALITY, CONSIDER INFERIOR ISCHEMIA [-0.1+ mV T-WAVE IN II/aVF] ABNORMAL ECG UNCONFIRMED REPORT Electronically signed by : Janes Delgado MD 08/01/2022 13:49:00
[2022-08-01 01:34] LABS: Bacteria,Urine 3+ /lpf; Calcium Oxalate Crystals,Urine 1+ /lpf
[2022-08-01 01:35] LABS: MANUAL DIFFERENTIAL MANUAL DIFFERENTIAL (MANUAL DIFF)
--- NOTE | 2022-08-01 01:36 | HMH.EDPSYCH ---
Discharge Plan Disposition Patient Disposition: Home, Self-Care Chief Complaint: Psychiatric Symptoms Prescriptions Prescriptions: No Action albuterol sulfate 90 mcg/actuation HFA aerosol inhaler 2 inh INHALATION Q4H PRN (Reason: Shortness Of Breath Or Wheezing) Qty: 8.5 2RF budesonide-formoterol 160-4.5 mcg/actuation HFA aerosol inhaler 2 inh INHALATION BID Qty: 10.2 3RF Rx Instructions: INHALE 2 PUFFS 2 TIMES EACH DAY ergocalciferol (vitamin D2) 1,250 mcg (50,000 unit) capsule 1,250 mcg PO WEEKLY Qty: 14 0RF hydrocodone-acetaminophen 7.5-325 mg tablet 1 tab PO TID Qty: 90 0RF gabapentin 800 mg tablet 800 mg PO TID Qty: 90 0RF alprazolam 0.5 mg tablet 0.5 mg PO TID Qty: 90 2RF oxybutynin chloride 5 MG tablet 5 mg PO DAILY nicotine 21 MG/PATCH patch 24 hour 21 mg TD DAILYP PRN (Reason: Nicotine Cravings) 0RF ipratropium-albuterol 3 ML solution for nebulization 3 ml IH TIDRT citalopram 40 MG tablet 40 mg PO DAILY quetiapine 100 MG tablet 300 mg PO HS levothyroxine 50 MCG tablet 50 mcg PO DAILYDM pantoprazole 40 MG tablet,delayed release (DR/EC) 40 mg PO DAILY pravastatin 20 MG tablet 20 mg PO HS levofloxacin 750 mg tablet 750 mg PO DAILY 4 Days Qty: 4 0RF aspirin 81 MG tablet,delayed release (DR/EC) 81 mg PO DAILY cholecalciferol (vitamin D3) 1,000 UNIT capsule 25 mcg PO DAILY Referrals Follow up/Referrals: Mark Mcclain MD [Primary Care Provider] - See instructions Clinical Impressions Clinical Impression: COPD (chronic obstructive pulmonary disease), Schizophrenia Instructions Patient Instructions: DI for Psychosis Discharge ED Provider: Mark Mcclain Psych HPI General Chief Complaint: Psychiatric Symptoms Stated Complaint: psych Time Seen by Provider: 08/01/22 01:36 Mode of Arrival: EMS Source of Information: Patient, EMS and Medical Record Limitations: No Limitations Description of Symptoms (Recalled from ER Triage Doc. by RN): per correction pt was combative and threatening staff. pt recieved 10 mg haldol IM. pt has no c/o History of Present Illness HPI Narrative: pt sent from [facility] with being combative and threatening staff and paranoid that people would hurt her - denied self harm - MD complaint: other (paranoid ) Onset (ago): hour(s) Duration: getting worse History of same: Yes Related Data Home Medications Medication Instructions Recorded Confirmed aspirin 81 mg tablet,delayed 81 mg PO DAILY Heart disease 09/12/21 07/11/22 release cholecalciferol (vitamin D3) 25 25 mcg PO DAILY Supplement 09/12/21 07/11/22 mcg (1,000 unit) capsule oxybutynin chloride 5 mg tablet 5 mg PO DAILY overactive bladder 06/29/22 07/11/22 citalopram 40 mg tablet 40 mg PO DAILY Anxiety 07/11/22 07/11/22 ipratropium 0.5 mg-albuterol 3 mg 3 ml IH TIDRT soa 07/11/22 07/11/22 (2.5 mg base)/3 mL nebulization soln levothyroxine 50 mcg tablet 50 mcg PO DAILYDM thyroid 07/11/22 07/11/22 pantoprazole 40 mg tablet,delayed 40 mg PO DAILY GERD 07/11/22 07/11/22 release pravastatin 20 mg tablet 20 mg PO HS Cholesterol 07/11/22 07/11/22 quetiapine 100 mg tablet 300 mg PO HS Pain 07/11/22 07/11/22 Previous Rx's Medication Instructions Recorded albuterol sulfate 90 mcg/actuation 2 inh INHALATION Q4H PRN Shortness 06/21/22 aerosol inhaler Of Breath Or Wheezing ##8.5 budesonide-formoterol HFA 160 2 inh INHALATION BID Breathing 06/21/22 mcg-4.5 mcg/actuation aerosol problems ##10.2 inhaler ergocalciferol (vitamin D2) 1,250 1,250 mcg PO WEEKLY Supplement #14 06/21/22 mcg (50,000 unit) capsule caps nicotine 21 mg/24 hr daily 21 mg transdermal DAILYP PRN 07/02/22 transdermal patch Nicotine Cravings levofloxacin 750 mg tablet 750 mg PO DAILY 4 days #4 tabs 07/12/22 gabapentin 800 mg tablet 800 mg PO TID nerve pain #90 tabs 07/19/22 hydrocodone 7.5 mg-acetaminophen 1 tab PO TID Pain #90 tabs
[2022-08-01 01:43] LABS: Chloride 97 mmol/L (98-107); Potassium 4.1 mmoL/L (3.5-5.1); Sodium 144 mmol/L (136-145)
[2022-08-01 01:45] LABS: Alanine Aminotransferase 15 U/L (12-78); Aspartate Amino Transferase 31 U/L (14-36); Blood Urea Nitrogen 20 mg/dl (7-17); Creatinine Clearance Estimated 69 mL/min (50-200); Estimated Glomerular Filt Rate 98 ml/min (>60); GFR (African American) 119 ML/MIN (>60)
[2022-08-01 01:46] LABS: Albumin/Globulin Ratio 1.5 (1.1-1.8); Alkaline Phosphatase 92 U/L (38-126); Anion Gap 13.1 mEq/L (5-15); Calcium 9.5 mg/dl (8.4-10.2); Carbon Dioxide 38 mmol/L (22.0-30.0); Globulin 2.7 g/dL (1.3-3.2); Glucose 112 mg/dl (74-100); Total Protein,Serum 6.7 g/dl (6.3-8.2)
--- NOTE | 2022-08-01 01:46 | PC.NURSE ---
RAD at BS
[2022-08-01 01:51] LABS: C-Reactive Protein 51.3 mg/L (0-4)
--- NOTE | 2022-08-01 01:52 | PC.NURSE ---
RT at to obtain ABG
[2022-08-01 01:53] LABS: Benzodiazepines Screen,Urine Positive ng/ml (<200)
[2022-08-01 01:53] LABS: Acetaminophen < 10 ug/ml (10-30); Bilirubin,Total < 0.1 mg/dl (0.2-1.3); Ethyl Alcohol < 10 mg/dl (0-10); Salicylate < 1.0 mg/dL (2.0-20.0)
[2022-08-01 01:54] LABS: Amphetamine/Metha Screen,Urine Negative ng/ml (<1000); Barbiturates Screen,Urine Negative ng/ml (<200)
[2022-08-01 01:55] LABS: Cannabinoid Screen,Urine Negative ng/ml (<50)
[2022-08-01 01:56] LABS: Cocaine Screen,Urine Negative ng/ml (<300); Methadone Screen,Urine Negative ng/ml (<300)
[2022-08-01 01:57] LABS: Opiate Screen,Urine Positive ng/ml (<300); Phencyclidine Screen,Urine Negative ng/ml (<25)
--- NOTE | 2022-08-01 01:57 | PC.NURSE ---
involuntary paperwork completed and send to judge babin @ this time
[2022-08-01 02:03] LABS: ABG Base Excess 9.5 mmol/L (-2.4-2.3); ABG HCO3 33.7 mmhg (22.0-26.0); ABG Oxygen Saturation 95 % (90-100); ABG PH 7.44 mmol/L (7.35-7.45); ABG PO2 74.4 mmhg (80-100); ABG TCO2 35.2 mmhg (23-27)
[2022-08-01 02:04] LABS: Allen's Test Acceptable; Source Right Radial
[2022-08-01 02:06] LABS: ABG PCO2 50.6 mmhg (35.0-45.0)
--- NOTE | 2022-08-01 02:06 | PC.NURSE ---
MADE AWARE OF ABG RESULTS.
--- NOTE | 2022-08-01 02:11 | PC.NURSE ---
called [facility] left a call back number at this time
[2022-08-01 02:13] LABS: Troponin I < 0.01 ng/ml (0.00-0.034)
[2022-08-01 02:17] LABS: Lymphocytes % 13 % (10-50); Monocytes % 3 % (2-9); Neutrophils % 83 % (42-76); Platelet Estimate Normal; Stomatocytes 1+; Total Cells Counted 100
--- NOTE | 2022-08-01 02:26 | PC.NURSE ---
Pt able to ambulate with 2 person assist
[2022-08-01 02:28] LABS: Coronavirus 19, PCR Not Detected (NotDetected); Influenza A, PCR Not Detected (NotDetected); Influenza B, PCR Not Detected (NotDetected)
[2022-08-01 02:28] LABS: Erythrocyte Sedimentation Rate 45 mm/hr (0-30)
[2022-08-01 02:53] LABS: Procalcitonin 0.058 ng/mL (0.0-2.0)
--- NOTE | 2022-08-01 04:43 | PC.NURSE ---
Pt incontinent of bladder. Pt undergarments changed, and bed sheets changed. pt given drink of water per request. Pt voiced no other needs or complaints. Second trop drawn and sent to lab.
[2022-08-01 05:24] LABS: Troponin I < 0.01 ng/ml (0.00-0.034)
--- NOTE | 2022-08-01 06:07 | PC.NURSE ---
Rounded on pt. Pt asked if she needed to go to the restroom she replied, Not right now. Pt made aware she would have a breakfast tray soon. No needs or complaints voiced.
--- NOTE | 2022-08-01 06:12 | PC.NURSE ---
Updated Kenia at [facility] of pt POC
--- NOTE | 2022-08-01 07:12 | PC.NURSE ---
at the bedside
--- NOTE | 2022-08-01 07:18 | PC.NURSE ---
talking with care mgn
--- NOTE | 2022-08-01 07:20 | SW/DCPLANNER ---
Addendum entered by Dinorah Reardon 08/01/22 07:38: Sania galaviz/ [facility] stated this patient can return this AM. Original Note: This patient currently resides at [facility] level of care. I have reached out to Sania RYDER this AM that patient is medically stable for discharge and can patient return? I am currently waiting to hear back from Sania RYDER.
--- NOTE | 2022-08-01 07:47 | PC.NURSE ---
report called to [facility], spoke with John
--- NOTE | 2022-08-01 07:57 | PC.NURSE ---
called [facility] for transport, transfer truck will be here after 8
--- NOTE | 2022-08-01 08:15 | PC.NURSE ---
Addendum entered by Lien Haro RN 08/01/22 08:17: ems states they have to switch trucks, will be back for pt Original Note: [facility] here for transport back to [facility]
--- NOTE | 2022-08-01 08:33 | PC.NURSE ---
ems here for pt
--- NOTE | 2022-08-01 08:39 | PC.NURSE ---
pt being transported back to [place] per EMS
--- NOTE | 2022-08-01 08:45 | PC.NURSE ---
pt left with ems for transport back to [facility]
== END 2022-08-01 08:47 | disposition home or self-care (01) ==
PROVIDERS: Emergency Provider Emergency Medicine; PCP Emergency Medicine
DX: J44.9 Chronic obstructive pulmonary disease, unspecified (principal); F20.9 Schizophrenia, unspecified; N39.0 Urinary tract infection, site not specified; Z79.82 Long term (current) use of aspirin; Z79.899 Other long term (current) drug therapy; Z88.8 Allergy status to other drugs, medicaments and biological substances; E03.9 Hypothyroidism, unspecified; K57.32 Diverticulitis of large intestine without perforation or abscess without bleeding; I10 Essential (primary) hypertension
CPT/HCPCS: 71045; 80053; 80305; 80329; 81001; 82803; 84145; 84484; 85007; 85025; 85651; 86140; 87086; 93005; C9803; U0003; U0005

== ENCOUNTER 2022-08-01 13:28 | Observation (INO) | payer MEDICARE, OTHER, SELFPAY ==
[2022-08-01 13:39] VITALS: RESP 0; O2SAT 0; BMI 25.0
--- NOTE | 2022-08-01 13:52 | PC.NURSE ---
pt refused vitals at this time
--- NOTE | 2022-08-01 13:53 | PC.NURSE ---
speaking with care management
--- NOTE | 2022-08-01 14:08 | PC.NURSE ---
CARE MANAGEMENT NOTIFIED THEY ARE GONNA TRY TO FIND A GERIATRIC PSYCH FACILITY PER DR THRASHER
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
--- NOTE | 2022-08-01 14:19 | PC.NURSE ---
called and spoke with a nurse at [facility] to check on last given meds, nurse states pt was out of facility this morning so no meds was given to pt
--- NOTE | 2022-08-01 14:22 | PC.NURSE ---
pt continues to sit at end of bed giselle encouraged her to sit back up on the bed, she refuses, i asked her not to get up without help.
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
--- NOTE | 2022-08-01 14:50 | PC.NURSE ---
pt as compliant for a heart rate and o2 sat check but will not allow a bp. pt medicated per MAR
--- NOTE | 2022-08-01 14:50 | PC.NURSE ---
SPOKE WITH CARE MANAGEMENT THEY HAVING TRYING TO FIND PLACEMENT THEIR RECOMMENDATION WAS TO SEND TO [facility] WITH THE HOLD
[2022-08-01 14:52] VITALS: PULSE 97; O2SAT 91
--- NOTE | 2022-08-01 14:54 | PC.NURSE ---
care managament contacting [facility].
--- NOTE | 2022-08-01 16:15 | PC.NURSE ---
pt occasionally calls me in room, i asked if i could take her blood pressure she refused, said she was fine.
--- NOTE | 2022-08-01 17:17 | PC.NURSE ---
pt medicated per MAR. pt in bed at this time, still will not allow vitals to be obtained
--- NOTE | 2022-08-01 17:30 | PC.NURSE ---
SPOKE WITH JENNIFER IN CARE MANAGEMENT PT WILL HAVE TO WAIT FOR ADDITIONAL PAPERWORK FROM [facility] THAT , DR THRASHER IS SPEAKING WITH DR SHAW ABOUT ADMITTING PT TO [facility] , AND THEY WILL GET PT TRANSFERRED TOMORROW FOR GERIATIC PSYCH .
--- NOTE | 2022-08-01 17:31 | PC.NURSE ---
speaking to dr felder
--- NOTE | 2022-08-01 17:41 | PC.NURSE ---
house called for admission
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
--- NOTE | 2022-08-01 18:02 | PC.NURSE ---
attempted to call report to receiving RN
--- NOTE | 2022-08-01 18:09 | PC.NURSE ---
pt out of bed again staff trying to get her back in bed, pt aggressive again, pt placed back in bed by staff
--- NOTE | 2022-08-01 18:22 | PC.NURSE ---
attempted to call report to receiving RN, states she will call back
--- NOTE | 2022-08-01 18:55 | PC.NURSE ---
called report to julius willoughby
[2022-08-01 19:35] VITALS: BP 00/00; PULSE 0; RESP 18; TEMP -17.7; TEMP 0
--- NOTE | 2022-08-01 19:41 | PC.NURSE ---
pt refuses to allow staff to obtain a set of vitals but has no complaints
[2022-08-01 21:00] VITALS: PULSE 96; O2SAT 92
--- NOTE | 2022-08-01 21:00 | PC.NURSE ---
pt admitted to 215, pt alert to name and birthdate but confused to place and year, pt stated it was [birth year] and she was at [facility], pt not a good historian and uncooperative and resistive to care, pt would not let staff take her vital signs, was able to obtain with persuasion, pt refused IV, it was noted pt with heart rate tachy at times and irregular, pt refuses any further evaluation at this time. pt has tech at side for one to one care. medical history obtained [facility], medication list also obtained from [facility]. pt uncooperative and will not answer questions at this time.
[2022-08-01 21:17] VITALS: BP 141/71; PULSE 96; RESP 18; O2SAT 92
--- NOTE | 2022-08-01 21:47 | PC.NURSE ---
[facility] called and spoke with jamie and jesenia intake personnel, they stated that pt is no longer accepted due to [facility] refusing to sign letter to hold bed at their facility, dr felder called and made aware.
[2022-08-02 04:00] VITALS: BP 176/95; PULSE 122; RESP 18; O2SAT 91
--- NOTE | 2022-08-02 05:45 | PC.NURSE ---
pt confused, resistive to care, uncooperative, pt awake most of night with tech at bedside one on one care, pt refusing care. pt will not let staff get vital signs, start an iv, pt oriented to name and birthday only.
[2022-08-02 06:51] LABS: Basophils # 0.1 K/mm3 (0-0.2); Eosinophils # 0.1 K/mm3 (0.0-0.4); Eosinophils % 0.5 % (0.1-12.0); Hematocrit 39.9 % (37.0-47.0); Hemoglobin 12.6 g/dL (12.2-16.2); Lymphocytes # 2.4 K/mm3 (0.7-4.5); Mean Corpuscular HGB Conc 31.5 g/dL (31.8-35.4); Mean Corpuscular Hemoglobin 28.2 pg (27.0-31.2); Mean Corpuscular Volume 89.4 fl (81-99); Mean Platelet Volume 7.8 fl (7.4-10.4); Monocytes # 0.9 K/mm3 (0.1-1.0); Neutrophils # 7.9 K/mm3 (1.8-7.8); Neutrophils % 69.6 % (37.0-80.0); Platelet Count 336 K/mm3 (142-424); Red Blood Count 4.47 M/mm3 (4.20-5.40); Red Cell Distribution Width 15.2 % (11.5-17.5); White Blood Count 11.4 K/mm3 (4.8-10.8)
--- NOTE | 2022-08-02 07:26 | PC.NURSE ---
Pt refused vitals, will try again later. Pt resting in bed no needs stated. Weston LEWIS
[2022-08-02 08:00] VITALS: RESP 19
--- NOTE | 2022-08-02 08:15 | P.CONPHA_ITS ---
[facility] Pharmacy VTE Monitoring Patient Demographics Admission date: 08/01/22 Report Date: 08/02/22 Time: 08:15 Patient Allergies metronidazole Allergy (Unknown, Verified 06/21/22 13:17) I-HIVES nitrofurantoin [From MACROBID] Allergy (Unknown, Verified 06/21/22 13:17) Unknown allergy reaction Height: 1.7 m Weight: 72.575 kg Current Active Problems (Updated 08/01/22 @ 23:49 by Elin Jerome RN) Psychosis (Acute) Schizophrenia (Acute) Agitation (Acute) VTE Risk Labs: VTE Related Lab Results Hgb 12.6 g/dL (12.2-16.2) 08/02/22 05:57 Hct 39.9 % (37.0-47.0) 08/02/22 05:57 Plt Count 336 K/mm3 (142-424) 08/02/22 05:57 Was VTE Risk Assessment Performed: Yes VTE Risk Level: Low Risk Prophylaxis VTE Prophylaxis Ordered?: Yes Types of VTE Prophylaxis: TEDS Knee High Location of Applied Device: Bilateral Lower Extremeties
--- NOTE | 2022-08-02 09:26 | PC.NURSE ---
PT HAS REFUSED MORNING MEDICATIONS. WILL TRY AGAIN LATER
--- NOTE | 2022-08-02 10:02 | P.CONPHA_ITS ---
Pharmacy Intervention Comments: MEDICATION RECONCILIATION COMPLETED ON PATIENT USING MAR FROM LONG TERM. -MIGUELANGEL WINTER, PROD
--- NOTE | 2022-08-02 10:02 | HMH.PHAINT1 ---
Pharmacy Intervention Comments: MEDICATION RECONCILIATION COMPLETED ON PATIENT USING MAR FROM [facility]. -MIGUELANGEL WINTER, PROD
--- NOTE | 2022-08-02 10:31 | PC.NURSE ---
ASKED PT IF SHE WOULD LIKE TO TAKE HER ORDERED MEDICATIONS SHE REFUSED.
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
[2022-08-02 13:56] VITALS: BMI 25.1
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
--- NOTE | 2022-08-02 14:43 | PC.NURSE ---
LATE ENTRY- REPORT CALLED TO [facility] FOR TRANSFER. DR LANIER MADE AWARE THAT FACILITY HAD ACCEPTED PT AND THAT THEY WOULD LIKE TO HAVE PCP @ [facility] GIVE REPORT TO ACCEPTING PCP AT [facility]. Alix LANIER APRN AT DR HATHAWAY'S OFFICE MADE AWARE AND SAID HE WOULD ARRANGE D/C ORDERS.
--- NOTE | 2022-08-02 16:11 | PC.NURSE ---
PT WAS ESCORTED FORM FLOOR BY [facility] DEPARTMENT PERSONNEL @ [id number]
== END 2022-08-02 15:50 ==
LOC: ER 17:49 → 2ND 18:20
PROVIDERS: Admitting Provider Family Medicine; Emergency Provider Emergency Medicine; PCP Family Medicine; Visit Provider Family Medicine
DX: F20.9 Schizophrenia, unspecified (principal); F17.210 Nicotine dependence, cigarettes, uncomplicated; Z79.899 Other long term (current) drug therapy; E03.9 Hypothyroidism, unspecified; R45.6 Violent behavior; R45.1 Restlessness and agitation; F06.8 Other specified mental disorders due to known physiological condition; Z20.822 Contact with and (suspected) exposure to COVID-19
CPT/HCPCS: G0378; 36415; 71045; 80053; 80305; 80329; 81001; 82803; 84145; 84484; 85007; 85025; 85651; 86140; 87086; 87088; 87186; 93005; 99285; C9803; U0003; U0005

== ENCOUNTER 2022-09-08 18:39 | Emergency (ER) | payer MEDICARE, OTHER, SELFPAY ==
[2022-09-08 18:45] VITALS: BP 153/71; PULSE 95; RESP 19; TEMP 36.9; O2SAT 93; BMI 28.5
--- NOTE | 2022-09-08 19:17 | PC.NURSE ---
Dr. Saba at [facility]
--- NOTE | 2022-09-08 19:21 | HMH.EDGENADL ---
Discharge Plan Disposition Patient Disposition: Home, Self-Care Condition: Fair Prescriptions Prescriptions: No Action oxybutynin chloride 5 mg tablet 5 mg PO DAILY Qty: 90 0RF levothyroxine 50 mcg tablet 50 mcg PO DAILYDM Qty: 90 0RF pravastatin 20 mg tablet 20 mg PO HS Qty: 90 0RF aspirin 81 mg tablet,delayed release (DR/EC) 81 mg PO DAILY Qty: 90 0RF citalopram 40 mg tablet 40 mg PO DAILY Qty: 90 0RF ergocalciferol (vitamin D2) 1,250 mcg (50,000 unit) capsule 1,250 mcg PO WEEKLY Qty: 14 3RF cholecalciferol (vitamin D3) 25 mcg (1,000 unit) capsule 25 mcg PO DAILY Qty: 90 0RF budesonide-formoterol 160-4.5 mcg/actuation HFA aerosol inhaler 2 inh inhalation BID Qty: 10.2 3RF Rx Instructions: INHALE 2 PUFFS 2 TIMES EACH DAY hydrocodone-acetaminophen 7.5-325 mg tablet 1 tab PO TID Qty: 90 0RF gabapentin 800 mg tablet 800 mg PO TID Qty: 90 0RF alprazolam 0.5 mg tablet 0.5 mg PO TID Qty: 90 2RF albuterol sulfate 90 mcg/actuation HFA aerosol inhaler See Rx Instructions .ROUTE .COMPLEX Qty: 8.5 2RF Dose Instruction: INHALE 2 PUFFS EVERY 4 HOURS NEEDED FOR SHORTNESS OF BREATH OR WHEEZING. Rx Instructions: INHALE 2 PUFFS EVERY 4 HOURS NEEDED FOR SHORTNESS OF BREATH OR WHEEZING. quetiapine 100 mg tablet See Rx Instructions .ROUTE .COMPLEX Qty: 90 1RF Dose Instruction: TAKE 3 TABLETS 1 TIME EACH DAY AT BEDTIME. Rx Instructions: TAKE 3 TABLETS 1 TIME EACH DAY AT BEDTIME. ipratropium-albuterol 3 ML solution for nebulization 3 ml inhalation TID pantoprazole 40 MG tablet,delayed release (DR/EC) 40 mg PO DAILY Referrals Follow up/Referrals: Francoise Vega PA [Physician Veterinary Laboratory Technician] - See instructions Clinical Impressions Clinical Impression: Tremor, Anxiety, Fever Instructions Patient Instructions: Anxiety Disorders Discharge ED Provider: Hayden Saba General Adult HPI <Hayden Saba MD - Last Filed: 09/08/22 20:17> General Chief complaint: Anxiety Stated complaint: tremors Time Seen by Provider: 09/08/22 19:15 Mode of Arrival: EMS Source of Information: Patient Limitations: No Limitations Description of Symptoms (Recalled from ER Triage Doc. by RN): Pt states that 3-4 days ago her PCP changed her anxiety meds from Xanax to Citalopram and sine then she has been having tremors in her hands and face. History of Present Illness HPI narrative: Patient is complaining of shaking for about 3 to 4 days. Hands and face are tremoring constantly. States that because of the shaking she is unable to walk. She says that she saw her primary care provider, Kin Colindres, on 08/27/2022. At that time she told them that she had run out of her Xanax which she has been taking for years, 0.5 mg 3 times a day. States that she ran out a few days before she saw Kin in the office. She says that she ran out because her son who is currently in rehab was told her medication. She says that Kin called her a liar and would not refill her prescription for Xanax. She says that she is afraid that she is going into withdrawal. She also says that she had a fever of 100 degrees last night. Noted to have some coughing here, but denies any significant cough, URI symptoms, vomiting, diarrhea, urinary symptoms, or any pain. No known exposures to any illnesses. Related Data Home Medications Medication Instructions Recorded Confirmed ipratropium 0.5 mg-albuterol 3 mg 3 ml inhalation TID Breathing 07/11/22 08/27/22 (2.5 mg base)/3 mL nebulization problems soln pantoprazole 40 mg tablet,delayed 40 mg PO DAILY GERD 07/11/22 08/27/22 release Previous Rx's Medication Instructions Recorded budesonide-formoterol HFA 160 2 inh inhalation BID Breathing 06/21/22 mcg-4.5 mcg/actuation aerosol problems #10.2 grams inhaler gabapentin 800 mg tablet 800 mg PO TID nerve pain #90 tabs 07/19/22 hydrocodone 7.5 mg-jesús
--- NOTE | 2022-09-08 19:27 | XR_ITS ---
PROCEDURE INFORMATION: Exam: XR Chest Exam date and time: 09/08/2022 7:45 PM Age: 71 years old Clinical indication: Patient HX: Fever and cough, patient states [facility] about 3 weeks ago and has been having left rib pain. TECHNIQUE: Imaging protocol: Radiologic exam of the chest. Views: 1 view. COMPARISON: CR XR CHEST PORTABLE 08/01/2022 1:55 AM FINDINGS: Lungs: Subtle interstitial haziness could reflect interstitial pneumonia. No consolidation. Pleural spaces: Unremarkable. No pleural effusion. No pneumothorax. Heart/Mediastinum: Unremarkable. No cardiomegaly. Bones/joints: Unremarkable. IMPRESSION: Subtle interstitial haziness could reflect interstitial pneumonia.
--- NOTE | 2022-09-08 19:34 | PC.NURSE ---
RAD at for CXR
[2022-09-08 19:59] LABS: Basophils # 0.1 K/mm3 (0-0.2); Basophils % 0.6 % (0.1-2.0); Eosinophils # 0.1 K/mm3 (0.0-0.4); Eosinophils % 0.7 % (0.1-12.0); Hematocrit 46.8 % (37.0-47.0); Hemoglobin 14.7 g/dL (12.2-16.2); Lymphocytes % 18.7 % (10-50); Mean Corpuscular HGB Conc 31.4 g/dL (31.8-35.4); Mean Corpuscular Hemoglobin 28.2 pg (27.0-31.2); Mean Corpuscular Volume 89.8 fl (81-99); Mean Platelet Volume 7.8 fl (7.4-10.4); Monocytes # 0.9 K/mm3 (0.1-1.0); Monocytes % 5.7 % (1.7-9.3); Neutrophils # 11.8 K/mm3 (1.8-7.8); Neutrophils % 74.3 % (37.0-80.0); Platelet Count 336 K/mm3 (142-424); Red Blood Count 5.21 M/mm3 (4.20-5.40); Red Cell Distribution Width 15.8 % (11.5-17.5); White Blood Count 15.8 K/mm3 (4.8-10.8)
[2022-09-08 20:00] VITALS: BP 158/84; PULSE 89; O2SAT 93
[2022-09-08 20:00] LABS: Coronavirus 19, PCR Not Detected (NotDetected); Influenza A, PCR Not Detected (NotDetected); Influenza B, PCR Not Detected (NotDetected)
[2022-09-08 20:00] LABS: Microscopic, Urine URINE MICROSCOPIC (MICROSCOPIC)
[2022-09-08 20:04] LABS: MANUAL DIFFERENTIAL MANUAL DIFFERENTIAL (MANUAL DIFF)
[2022-09-08 20:11] LABS: Chloride 102 mmol/L (98-107); Potassium 3.1 mmoL/L (3.5-5.1); Sodium 145 mmol/L (136-145)
[2022-09-08 20:13] LABS: Blood Urea Nitrogen 2 mg/dl (7-17); Creatinine Clearance Estimated 66 mL/min (50-200); Estimated Glomerular Filt Rate 121 ml/min (>60); GFR (African American) 147 ML/MIN (>60)
[2022-09-08 20:14] LABS: Alanine Aminotransferase 24 U/L (12-78); Albumin Level 3.9 g/dl (3.5-5.0); Albumin/Globulin Ratio 1.4 (1.1-1.8); Alkaline Phosphatase 113 U/L (38-126); Anion Gap 15.1 mEq/L (5-15); Aspartate Amino Transferase 24 U/L (14-36); Bilirubin,Total 0.2 mg/dl (0.2-1.3); Carbon Dioxide 31 mmol/L (22.0-30.0); Globulin 2.7 g/dL (1.3-3.2); Glucose 73 mg/dl (74-100); Total Protein,Serum 6.6 g/dl (6.3-8.2)
[2022-09-08 20:20] LABS: Amphetamine/Metha Screen,Urine Negative ng/ml (<1000); Benzodiazepines Screen,Urine Negative ng/ml (<200)
[2022-09-08 20:21] LABS: Barbiturates Screen,Urine Negative ng/ml (<200); Cannabinoid Screen,Urine Negative ng/ml (<50)
[2022-09-08 20:22] LABS: Cocaine Screen,Urine Negative ng/ml (<300)
[2022-09-08 20:23] LABS: Opiate Screen,Urine Negative ng/ml (<300)
[2022-09-08 20:24] LABS: Phencyclidine Screen,Urine Negative ng/ml (<25)
[2022-09-08 20:28] LABS: Lymphocytes % 25 % (10-50); Monocytes % 4 % (2-9); Neutrophils % 71 % (42-76); Platelet Estimate Normal; RBC Morphology Normal; Total Cells Counted 100
[2022-09-08 20:29] LABS: Lactic Acid 3.1 mmol/L (0.7-2.1)
[2022-09-08 20:30] VITALS: BP 149/90; PULSE 86; O2SAT 92
[2022-09-08 20:31] LABS: Methadone Screen,Urine Negative ng/ml (<300)
[2022-09-08 20:32] LABS: Appearance,Urine CLEAR (Clear); Bilirubin,Urine Negative (Negative); Blood, Urine Negative (Negative); Color,Urine YELLOW (Yellow); Glucose,Urine (UA) Negative (Negative); Ketones,Urine Negative (Negative); Leukocyte Esterase,Urine Negative (Negative); Nitrate,Urine Negative (Negative); PH,Urine 6.5 (5.0-8.5); Protein,Urine Negative (Negative); Specific Gravity, Urine <= 1.005 (1.005-1.030); Urobilinogen,Urine 0.2 EU/dl (0.2)
[2022-09-08 20:33] LABS: Amorphous Sediment,Urine Trace /lpf
[2022-09-08 21:31] VITALS: BP 147/94; PULSE 95; O2SAT 92
--- NOTE | 2022-09-08 22:51 | PC.NURSE ---
Attempted to call pt contact, Guillermina Villalba, in regards to getting a ride home. No answer, left voicemail.
--- NOTE | 2022-09-08 22:53 | PC.NURSE ---
Guillermina Villalba returned phone call. 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 She also advised she would try to find her a ride.
[2022-09-08 23:01] VITALS: BP 190/89; PULSE 93; O2SAT 92
--- NOTE | 2022-09-08 23:04 | PC.NURSE ---
Attempted to call Brenden for pt. No answer. Voicemail left.
[2022-09-08 23:29] LABS: Reflex Lactic Add Lactic Reflex
--- NOTE | 2022-09-08 23:50 | PC.NURSE ---
Attempted to call Dinorah Richardson. No answer. Left voicemail.
--- NOTE | 2022-09-08 23:50 | PC.NURSE ---
Pt moved to room with door and TV for comfort. No other needs or complaints voiced at this time.
[2022-09-09 00:10] LABS: Lactic Acid Follow Up (RFLX 1) 1.3 mmol/L (0.7-2.1)
--- NOTE | 2022-09-09 00:32 | PC.NURSE ---
PT used call light to notify staff that she had had a bowel movement on herself. Pt cleaned up and repositioned for comfort. Pt also advised that she was unable to walk very well at home. Pt voiced no other needs or complaints at this time.
[2022-09-09 01:48] VITALS: BP 150/65; PULSE 74; O2SAT 91
--- NOTE | 2022-09-09 02:48 | PC.NURSE ---
Pt sleeping. Call light within reach.
[2022-09-09 03:01] VITALS: BP 149/72; PULSE 75; O2SAT 92
[2022-09-09 04:01] VITALS: BP 146/79; PULSE 92; O2SAT 91
--- NOTE | 2022-09-09 04:05 | PC.NURSE ---
Pt sleeping. Call light within reach.
[2022-09-09 05:01] VITALS: BP 156/75; PULSE 86; O2SAT 90
--- NOTE | 2022-09-09 05:52 | PC.NURSE ---
Pt requested I call Preeti Grande. No answer. Left voicemail.
--- NOTE | 2022-09-09 05:55 | PC.NURSE ---
Breakfast tray request submitted
[2022-09-09 06:00] VITALS: BP 164/94; PULSE 75; O2SAT 92
--- NOTE | 2022-09-09 06:58 | PC.NURSE ---
Pt provided with breakfast tray. No needs or complaints at this time. Call light within reach.
--- NOTE | 2022-09-09 07:25 | PC.NURSE ---
Called care management to let them know we needed help finding pt a ride home.
--- NOTE | 2022-09-09 07:48 | SW/DCPLANNER ---
I have arranged [employer] for this patient: confirmation number is [id number].
[2022-09-09 08:20] VITALS: BP 164/94; PULSE 75; RESP 20; TEMP 36.6; O2SAT 93
== END 2022-09-09 08:20 | disposition home or self-care (01) ==
PROVIDERS: Emergency Provider Emergency Medicine; PCP Nurse Practitioner Family
DX: R25.1 Tremor, unspecified (principal); F41.9 Anxiety disorder, unspecified; R50.9 Fever, unspecified; Z79.899 Other long term (current) drug therapy; K21.9 Gastro-esophageal reflux disease without esophagitis; E03.9 Hypothyroidism, unspecified; J44.9 Chronic obstructive pulmonary disease, unspecified; I25.10 Atherosclerotic heart disease of native coronary artery without angina pectoris; F32.A Depression, unspecified; K57.32 Diverticulitis of large intestine without perforation or abscess without bleeding; I10 Essential (primary) hypertension; E78.5 Hyperlipidemia, unspecified
CPT/HCPCS: 36415; 71045; 80053; 80305; 81001; 83605; 85007; 85025; 87040; 87077; 87186; 96374; 99284; C9803; U0003; U0005

== ENCOUNTER 2022-10-14 15:30 | Observation (INO) | payer MEDICARE, OTHER, SELFPAY ==
[2022-10-14] VITALS (11 sets, daily range): BP systolic 146–169; BP diastolic 60–90; PULSE 78–91; RESP 16–18; TEMP 36.6–36.7; O2SAT 92–100; BMI 28.5; BMI 24.3
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
--- NOTE | 2022-10-14 15:31 | PC.NURSE ---
notified RT of of neb and abg order
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
--- NOTE | 2022-10-14 15:42 | SW/DCPLANNER ---
Addendum entered by Lelo Portillo RN 10/15/22 14:22: Sania from [facility] notified us that they will accept patient and she can come now. Addendum entered by Lelo Portillo RN 10/15/22 11:21: Patient initially today did not want to go to [facility], but after speaking with them she changed her mind. Awaiting to hear back from Sania if they will accept. Original Note: Patient has expressed an interest in placement to ED staff. Patient was recently at [facility] level of care then transitioned to LTC and signed herself out. Sania w/ [facility] stated that she does have a female bed available at this time. Patient information has been faxed to Sania galaviz/ [facility]. Sania stated that she will follow up with ED staff after reviewing information.
[2022-10-14 15:45] LABS: ABG Base Excess 3.9 mmol/L (-2.4-2.3); ABG HCO3 28.7 mmhg (22.0-26.0); ABG Oxygen Saturation 90 % (90-100); ABG PCO2 47.2 mmhg (35.0-45.0); ABG PO2 58.9 mmhg (80-100); ABG TCO2 30.2 mmhg (23-27); Allen's Test Acceptable; Oxygen RA %; Source Right Radial
--- NOTE | 2022-10-14 16:58 | PC.NURSE ---
ER spoke with pamela in admission at [facility], states she has to speak with administration and they may be able to readmit pt.
[2022-10-14 17:13] LABS: Microscopic, Urine URINE MICROSCOPIC (MICROSCOPIC)
--- NOTE | 2022-10-14 17:22 | PC.NURSE ---
pt placed on 2L NC due to sat being 84%. Her sat is now at 95%, ER notified.
--- NOTE | 2022-10-14 17:23 | XR_ITS ---
PROCEDURE INFORMATION: Exam: XR Chest Exam date and time: 10/14/2022 5:44 PM Age: 71 years old Clinical indication: Dyspnea TECHNIQUE: Imaging protocol: Radiologic exam of the chest. Views: 1 view. COMPARISON: CR XR CHEST PORTABLE 09/08/2022 7:45 PM FINDINGS: Lungs: Unremarkable. No consolidation. Pleural spaces: Unremarkable. No pleural effusion. No pneumothorax. Heart/Mediastinum: Unremarkable. No cardiomegaly. Bones/joints: Unremarkable. IMPRESSION: No acute findings.
--- NOTE | 2022-10-14 17:23 | PC.NURSE ---
Notes emailed over to [email or web address] regarding pt POC.
[2022-10-14 18:00] LABS: Basophils # 0.1 K/mm3 (0-0.2); Basophils % 0.9 % (0.1-2.0); Eosinophils # 0.2 K/mm3 (0.0-0.4); Eosinophils % 1.6 % (0.1-12.0); Hematocrit 47.1 % (37.0-47.0); Lymphocytes # 2.8 K/mm3 (0.7-4.5); Lymphocytes % 22.5 % (10-50); Mean Corpuscular HGB Conc 31.8 g/dL (31.8-35.4); Mean Corpuscular Hemoglobin 28.1 pg (27.0-31.2); Mean Corpuscular Volume 88.5 fl (81-99); Mean Platelet Volume 8.4 fl (7.4-10.4); Monocytes # 0.7 K/mm3 (0.1-1.0); Monocytes % 5.5 % (1.7-9.3); Neutrophils # 8.7 K/mm3 (1.8-7.8); Neutrophils % 69.5 % (37.0-80.0); Platelet Count 329 K/mm3 (142-424); Red Blood Count 5.32 M/mm3 (4.20-5.40); Red Cell Distribution Width 16.4 % (11.5-17.5); White Blood Count 12.5 K/mm3 (4.8-10.8)
[2022-10-14 18:08] LABS: Chloride 104 mmol/L (98-107)
[2022-10-14 18:09] LABS: Potassium 3.9 mmoL/L (3.5-5.1); Sodium 140 mmol/L (136-145)
[2022-10-14 18:11] LABS: Alanine Aminotransferase 10 U/L (12-78); Aspartate Amino Transferase 22 U/L (14-36); Blood Urea Nitrogen 15 mg/dl (7-17); Creatinine Clearance Estimated 66 mL/min (50-200); Estimated Glomerular Filt Rate 98 ml/min (>60); GFR (African American) 119 ML/MIN (>60)
[2022-10-14 18:12] LABS: Albumin Level 4.2 g/dl (3.5-5.0); Albumin/Globulin Ratio 1.6 (1.1-1.8); Alkaline Phosphatase 107 U/L (38-126); Anion Gap 4.9 mEq/L (5-15); Bilirubin,Total 0.2 mg/dl (0.2-1.3); Calcium 10.3 mg/dl (8.4-10.2); Carbon Dioxide 35 mmol/L (22.0-30.0); Globulin 2.7 g/dL (1.3-3.2); Glucose 85 mg/dl (74-100); Total Protein,Serum 6.9 g/dl (6.3-8.2)
[2022-10-14 18:26] LABS: Troponin I < 0.01 ng/ml (0.00-0.034)
--- NOTE | 2022-10-14 18:30 | PC.NURSE ---
notified house coordinator of admission
--- NOTE | 2022-10-14 18:32 | PC.NURSE ---
Patient pulled up in the bed more comfortably, assist x 2. Call light in reach. She is aware that she has been admitted and has no other questions at this time.
[2022-10-14 18:38] LABS: Coronavirus 19, PCR Not Detected (NotDetected); Influenza A, PCR Not Detected (NotDetected); Influenza B, PCR Not Detected (NotDetected)
[2022-10-14 19:06] LABS: Appearance,Urine Cloudy (Clear); Bilirubin,Urine Negative (Negative); Blood, Urine Negative (Negative); Color,Urine Yellow (Yellow); Glucose,Urine (UA) Negative (Negative); Ketones,Urine Negative (Negative); Leukocyte Esterase,Urine Negative (Negative); Nitrate,Urine Negative (Negative); Protein,Urine Negative (Negative); Urobilinogen,Urine 0.2 EU/dl (0.2)
[2022-10-14 19:08] LABS: Bacteria,Urine 4+ /lpf; WBC,Urine Occasional #/hpf (0-3)
[2022-10-14 19:32] LABS: Troponin I < 0.01 ng/ml (0.00-0.034)
--- NOTE | 2022-10-14 19:37 | PC.NURSE ---
shift change report given to bethrn
--- NOTE | 2022-10-14 19:44 | PC.NURSE ---
pt given peanut butter crackers and water
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
--- NOTE | 2022-10-14 21:42 | PC.NURSE ---
Pt arrived to the floor via w/c by staff at this time.
[2022-10-14 22:05] LABS: Troponin I < 0.01 ng/ml (0.00-0.034)
[2022-10-15 04:00] VITALS: BP 133/72; PULSE 82; RESP 18; TEMP 36.6; O2SAT 96
[2022-10-15 04:54] VITALS: BMI 24.4
--- NOTE | 2022-10-15 06:38 | PC.NURSE ---
Pt sleep well this shift. No complaints stated to staff.
[2022-10-15 08:00] VITALS: BP 125/86; PULSE 85; RESP 18; TEMP 36.8; O2SAT 99
[2022-10-15 09:41] VITALS: PULSE 78; PULSE 82; O2SAT 96
--- NOTE | 2022-10-15 10:52 | HMH.PTEV ---
Physical Therapy Evaluation Rehab PT IP Evaluation Start: 10/15/22 09:22 Freq: ONCE Status: Active Protocol: Document 10/15/22 10:45 PHORMARIA ISABEL (Rec: 10/15/22 10:49 PHORNE [id number]) Subjective/History History History 71 yowf adm to [facility] with resp failure and general weakness. She reports she was living with son, but currently has no electricity. She reports she was using a walker at home for all mobility and needed assist with ADLS. Tremors noted on R hand during treatment this am. Subjective Subjective Currently she c/o feeling cold , but no pain. Rehab PT IP Eval Objective Appearance Patient Behavior Appropriate Patient Orientation Person,Place Difficulty following instructions none Speech Pattern Clear Ambulation Patient Able to Ambulate Yes Ambulation Observation IP General Gait Pattern Observation Shuffling Step Ambulation Distance (feet) 4 Ambulation Assistive Device None Ambulation Ability Minimal x 1 (25% assist) Balance Ability to Arise Able, uses arms to help Sitting Balance Steady, safe Standing Balance Steady, wide stance Dynamic Sitting Balance Ability Good Dynamic Standing Balance Ability Fair Transfers Bed Transfer Ability Minimal x 1 (25% assist) Chair Transfer Ability Minimal x 1 (25% assist) Sit to Stand Bed Transfer Ability Minimal x 1 (25% assist) Sit to Stand Chair Transfer Ability Minimal x 1 (25% assist) Rehab PT IP prob,goals,plan Problems Date of Evaluation: 10/15/22 PT IP Problems Bed Mobility,Transfers,Gait, Self care Rehab Potential Rehab Potential Good Plan PT Intervention Plan Bed Mobility,Transfers,Gait, Self care,Therapeutic Exercise PT Plan Frequency BID Duration LOS Discharge Goals Bed Transfer Ability Contact Guard/Hand Hold Sit to Stand Chair Transfer Ability Contact Guard/Hand Hold Ambulation Assistive Device Rolling Walker Ambulation Distance (feet) 25 Discharge Plan PT Discharge Plan Pt is currently most appropriate for rehab placement once medically stable. If she does return home she will be at increased risk for falls, injury, or
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
[2022-10-15 13:59] VITALS: BMI 24.3
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
--- NOTE | 2022-10-15 15:26 | PC.NURSE ---
Called report to [facility] to Anna at 1520. Did also call and speak with Dr.K Polanco and requested abt r/t 4 plus bacteria and foul smell to urine. He stated he would add abt for pt to be d/cd with.
== END 2022-10-15 18:30 ==
LOC: ER 16:07 → 2ND 18:38
PROVIDERS: Admitting Provider Internal Medicine Adolescent Medicine; Emergency Provider Student in an Organized Health Care Education/Training Program; Visit Provider Student in an Organized Health Care Education/Training Program
DX: J96.01 Acute respiratory failure with hypoxia (principal); J44.9 Chronic obstructive pulmonary disease, unspecified; F17.210 Nicotine dependence, cigarettes, uncomplicated; Z79.899 Other long term (current) drug therapy; E03.9 Hypothyroidism, unspecified; F20.9 Schizophrenia, unspecified; E78.5 Hyperlipidemia, unspecified; F41.9 Anxiety disorder, unspecified; T76.91XA Unspecified adult maltreatment, suspected, initial encounter; Z20.822 Contact with and (suspected) exposure to COVID-19; Z59.1 Inadequate housing; T74.01XA Adult neglect or abandonment, confirmed, initial encounter
CPT/HCPCS: G0378; 71045; 80053; 81001; 82803; 84484; 85025; 87086; 94640; 94761; 97110; 97162; 97166; 99285; C9803; U0003; U0005

== ENCOUNTER 2022-11-25 10:31 | Emergency (ER) | payer MEDICARE, OTHER, SELFPAY ==
[2022-11-25] VITALS (11 sets, daily range): BP systolic 120–153; BP diastolic 48–80; PULSE 75–102; RESP 15–18; TEMP 36.7–37.7; O2SAT 93–98; BMI 23.3; BMI 25.0
--- NOTE | 2022-11-25 10:34 | XR_ITS ---
FINAL REPORT CLINICAL HISTORY: SOA FINDINGS: A single PA view of the chest was obtained. There is no prior exam for comparison. The cardiac and mediastinal silhouettes are within normal limits. There are bilateral interstitial opacities which could represent interstitial pulmonary edema or pneumonia. There is a nodular density in the right upper lobe which is partially obscured by an EKG lead marker. There is no effusion or pneumothorax. No acute osseous abnormality is identified. IMPRESSION: Interstitial opacities, edema or pneumonia. Right upper lobe nodular density partially obscured. Recommend upright PA and lateral chest x-ray when patient is able to tolerate. Consider chest CT if not previously obtained. Reviewed, Interpreted and Dictated by Daly Levy MD Transcribed by Jacey Villagran Authenticated and [facility]
--- NOTE | 2022-11-25 10:36 | ECG_ITS ---
APPROVED REPORT Exam: Resting ECG HR:101 bpm ECG Measurements Heart Rate 101 AXES HI 136 P 87 QRSd 86 QRS 83 QT 283 T 34 QTc 341 Conclusion SINUS TACHYCARDIA NONSPECIFIC T-WAVE ABNORMALITY ABNORMAL RHYTHM ECG UNCONFIRMED REPORT Electronically signed by : Janes Delgado MD 11/25/2022 21:41:29
--- NOTE | 2022-11-25 10:39 | PC.NURSE ---
RT at BS
--- NOTE | 2022-11-25 10:41 | PC.NURSE ---
rad at BS for portable xray
[2022-11-25 10:48] LABS: ABG Base Excess 7.3 mmol/L (-2.4-2.3); ABG HCO3 33.2 mmhg (22.0-26.0); ABG Oxygen Saturation 95 % (90-100); ABG PH 7.33 mmol/L (7.35-7.45); ABG PO2 78.6 mmhg (80-100); ABG TCO2 35.1 mmhg (23-27); Allen's Test Acceptable; Oxygen 3L %; Source Right Radial
[2022-11-25 10:49] LABS: ABG PCO2 63.9 mmhg (35.0-45.0)
--- NOTE | 2022-11-25 10:55 | PC.NURSE ---
RESP HERE FOR TX
[2022-11-25 10:56] LABS: Influenza A, PCR Not Detected (NotDetected); Influenza B, PCR Not Detected (NotDetected)
[2022-11-25 11:01] LABS: Basophils # 0.1 K/mm3 (0-0.2); Basophils % 1.2 % (0.1-2.0); Eosinophils # 0.2 K/mm3 (0.0-0.4); Eosinophils % 1.5 % (0.1-12.0); Hematocrit 38.9 % (37.0-47.0); Hemoglobin 12.7 g/dL (12.2-16.2); Lymphocytes # 1.5 K/mm3 (0.7-4.5); Lymphocytes % 15.1 % (10-50); Mean Corpuscular HGB Conc 32.6 g/dL (31.8-35.4); Mean Corpuscular Hemoglobin 28.3 pg (27.0-31.2); Mean Corpuscular Volume 86.8 fl (81-99); Mean Platelet Volume 7.8 fl (7.4-10.4); Monocytes # 0.7 K/mm3 (0.1-1.0); Monocytes % 7.2 % (1.7-9.3); Neutrophils # 7.7 K/mm3 (1.8-7.8); Neutrophils % 75.1 % (37.0-80.0); Platelet Count 247 K/mm3 (142-424); Red Blood Count 4.48 M/mm3 (4.20-5.40); Red Cell Distribution Width 16.7 % (11.5-17.5); White Blood Count 10.3 K/mm3 (4.8-10.8)
[2022-11-25 11:05] LABS: Alanine Aminotransferase 15 U/L (12-78); Albumin Level 3.7 g/dl (3.5-5.0); Albumin/Globulin Ratio 1.3 (1.1-1.8); Alkaline Phosphatase 73 U/L (38-126); Anion Gap 7.9 mEq/L (5-15); Aspartate Amino Transferase 25 U/L (14-36); Bilirubin,Total 0.2 mg/dl (0.2-1.3); Blood Urea Nitrogen 7 mg/dl (7-17); Calcium 8.8 mg/dl (8.4-10.2); Carbon Dioxide 37 mmol/L (22.0-30.0); Chloride 101 mmol/L (98-107); Creatinine Clearance Estimated 54 mL/min (50-200); Estimated Glomerular Filt Rate 121 ml/min (>60); GFR (African American) 146 ML/MIN (>60); Globulin 2.9 g/dL (1.3-3.2); Glucose 125 mg/dl (74-100); Potassium 3.9 mmoL/L (3.5-5.1); Sodium 142 mmol/L (136-145); Total Protein,Serum 6.6 g/dl (6.3-8.2)
--- NOTE | 2022-11-25 11:12 | HMH.EDSOB ---
Discharge Plan Disposition Patient Disposition: er [facility] Chief Complaint: Shortness of Breath/Dyspnea Prescriptions Prescriptions: No Action gabapentin 800 mg tablet 800 mg PO TID Qty: 90 0RF citalopram 40 mg tablet 40 mg PO DAILY Qty: 90 0RF aspirin 81 mg tablet,delayed release (DR/EC) 81 mg PO DAILY Qty: 90 0RF quetiapine 100 mg tablet 300 mg PO HS Qty: 90 0RF Rx Instructions: TAKE 3 TABLETS 1 TIME EACH DAY AT BEDTIME. alprazolam 0.5 mg tablet 0.5 mg PO TID Qty: 90 3RF levothyroxine 50 mcg tablet 50 mcg PO DAILYDM Qty: 90 0RF pantoprazole 40 MG tablet,delayed release (DR/EC) 40 mg PO DAILY Qty: 90 0RF pravastatin 20 mg tablet 20 mg PO HS Qty: 90 0RF ergocalciferol (vitamin D2) 1,250 mcg (50,000 unit) capsule 1,250 mcg PO WEEKLY Qty: 14 3RF albuterol sulfate [ProAir HFA] 90 mcg/actuation HFA aerosol inhaler 2 puff inhalation Q4HP PRN (Reason: Shortness Of Breath Or Wheezing) Qty: 8.5 0RF oxybutynin chloride 5 mg tablet 5 mg PO DAILY Qty: 90 0RF cholecalciferol (vitamin D3) 25 mcg (1,000 unit) capsule 25 mcg PO DAILY Qty: 90 0RF budesonide-formoterol 160-4.5 mcg/actuation HFA aerosol inhaler 2 inh inhalation BID Qty: 10.2 3RF Rx Instructions: INHALE 2 PUFFS 2 TIMES EACH DAY doxycycline hyclate 100 mg Capsule 100 mg PO BID Rx Instructions: end 12/04 Clinical Impressions Clinical Impression: COVID-19, Tobacco abuse, COPD (chronic obstructive pulmonary disease) Instructions Patient Instructions: DI for Chronic Obstructive Pulmonary Disease, DI for COVID-19 (Suspected or Confirmed ) Discharge ED Provider: Mark Mcclain Resp/SOB HPI General Chief Complaint: Shortness of Breath/Dyspnea Stated Complaint: SOA Time Seen by Provider: 11/25/22 11:12 Mode of Arrival: EMS Source of Information: Patient, EMS and Medical Record Limitations: No Limitations Description of Symptoms (Recalled from ER Triage Doc. by RN): per ems report they were called due to pt being soa. pt had chest xray yesterday and was negative for pna. pt was to start abx and steroid today. pt wears 3l nc at baseline, and that is her current lpm. pt does have productive cough and chest congestion. History of Present Illness pt sent from [facility] for cough and sob - pt on 02 at [facility] - does smoke and recent positive for covid-19 MD Complaint: shortness of breath and cough Onset (ago): day(s) Severity: moderate Known history of: COPD Associated symptoms: cough Treatment prior to arrival: oxygen Related Data Home oxygen amount: 2 liters Home Medications Medication Instructions Recorded Confirmed doxycycline hyclate 100 mg capsule 100 mg PO BID uri 11/25/22 11/25/22 Previous Rx's Medication Instructions Recorded albuterol sulfate 90 mcg/actuation 2 puff inhalation Q4HP PRN 10/15/22 aerosol inhaler (ProAir HFA) Shortness Of Breath Or Wheezing #8.5 grams alprazolam 0.5 mg tablet 0.5 mg PO TID Anxiety #90 tabs 10/15/22 aspirin 81 mg tablet,delayed 81 mg PO DAILY Heart disease #90 10/15/22 release tabs budesonide-formoterol HFA 160 2 inh inhalation BID Breathing 10/15/22 mcg-4.5 mcg/actuation aerosol problems #10.2 grams inhaler cholecalciferol (vitamin D3) 25 25 mcg PO DAILY Supplement #90 caps 10/15/22 mcg (1,000 unit) capsule citalopram 40 mg tablet 40 mg PO DAILY Anxiety #90 tabs 10/15/22 ergocalciferol (vitamin D2) 1,250 1,250 mcg PO WEEKLY Supplement #14 10/15/22 mcg (50,000 unit) capsule caps levothyroxine 50 mcg tablet 50 mcg PO DAILYDM thyroid #90 tabs 10/15/22 oxybutynin chloride 5 mg tablet 5 mg PO DAILY overactive bladder 10/15/22 #90 tabs pantoprazole 40 mg tablet,delayed 40 mg PO DAILY GERD #90 tabs 10/15/22 release pravastatin 20 mg tablet 20 mg PO HS Cholesterol #90 tabs 10/15/22 quetiapine 100 mg tablet 300 mg PO HS Anxiety #90 tabs 10/15/22 gabapentin 800 mg tablet 800 mg PO TID nerve pain #90 tabs 10/28/22 Allergies Al
[2022-11-25 11:31] LABS: Coronavirus 19, PCR Detected (NotDetected)
--- NOTE | 2022-11-25 11:43 | PC.NURSE ---
notified lab of added on labs
--- NOTE | 2022-11-25 11:45 | PC.NURSE ---
pt oxygen decreased down to 1L, due to obtained abg.
[2022-11-25 11:48] LABS: Lactic Acid 0.7 mmol/L (0.7-2.1)
--- NOTE | 2022-11-25 11:49 | PC.NURSE ---
pt placed on 2L nc due to O2 sat maintaining at 88%, on 2L now at 90%
[2022-11-25 12:14] LABS: Troponin I < 0.01 ng/ml (0.00-0.034)
--- NOTE | 2022-11-25 13:02 | PC.NURSE ---
PER STAFF AT [facility] CALLED FOR PT UPDATE. REPORTS PT TESTED POSITIVE FOR COVID ON 10/24/22. NOTIFIED ER MD OF THIS AT THIS TIME.
--- NOTE | 2022-11-25 13:08 | CT_ITS ---
FINAL REPORT TECHNIQUE: Axial imaging of the chest is obtained after the administration of contrast. 3-D MIP reformatted images were also obtained and reviewed per PE protocol. This study was performed with techniques to keep radiation doses as low as reasonably achievable (ALARA). Individualized dose reduction techniques using automated exposure control or adjustment of mA and/or kV according to the patient's size were employed. CLINICAL HISTORY: sob COMPARISON: 06/19/2022 FINDINGS: Abnormal soft tissue is again seen in left breast which appears similar to prior exam. The pulmonary arteries are well filled. There is no evidence of pulmonary embolus. There is no aortic dissection or intimal flap. There is an enlarged lymph node in the lower left neck measuring 2.3 cm on image 5. There is also an enlarged lymph node in the right lower neck measuring 1.8 cm. AP window and hilar lymph nodes are seen, right greater than left. AP window lymph node measures 2.1 cm. Right hilar lymph node measures 2.5 cm. There are bilateral, reticular nodular opacities, asymmetric to the left which are new from prior exam. There is an irregular right upper lobe nodule on image number 35 measuring 1.4 cm which is unchanged from prior exam. A mixed density, right lower lobe nodule measuring 9 mm on image 48 is new. Right lower lobe nodule on image 64 is stable. There is no pleural or pericardial effusion. Limited evaluation of the upper abdomen is without acute abnormality. There is no acute osseous abnormality. IMPRESSION: No evidence of pulmonary embolism or aortic dissection. New bronchopneumonia. Right lung nodules, 1 of which is new which could be infectious, inflammatory or neoplastic. Worsening adenopathy which may be reactive or neoplastic. Abnormal soft tissue in the left breast. Recommend correlation with mammography if not already obtained. Reviewed, Interpreted and Dictated by Daly Levy MD Transcribed by Jossie Ruggiero Authenticated and [facility]
--- NOTE | 2022-11-25 13:11 | PC.NURSE ---
NOTIFIED OF CT ORDER, SPOKE WITH WHITNEY
--- NOTE | 2022-11-25 14:54 | PC.NURSE ---
NOTIFIED ER CTA RESULT IS IN THE COMPUTER
== END 2022-11-25 15:55 ==
PROVIDERS: Emergency Provider Emergency Medicine; PCP Nurse Practitioner Family
DX: U07.1 COVID-19 (principal); J44.9 Chronic obstructive pulmonary disease, unspecified; F17.210 Nicotine dependence, cigarettes, uncomplicated; E03.9 Hypothyroidism, unspecified; I10 Essential (primary) hypertension; E78.5 Hyperlipidemia, unspecified; Z20.822 Contact with and (suspected) exposure to COVID-19
CPT/HCPCS: 71045; 71275; 80053; 82803; 83605; 84484; 85025; 87040; 87070; 87205; 93005; 96374; 99285; C9803; Q9967; U0003; U0005

== ENCOUNTER 2022-11-27 18:31 | Emergency (ER) | payer MEDICARE, OTHER, SELFPAY ==
[2022-11-27 18:32] VITALS: BP 195/82; PULSE 88; RESP 23; TEMP 36.6; O2SAT 92; BMI 32.1
--- NOTE | 2022-11-27 18:37 | XR_ITS ---
PROCEDURE INFORMATION: Exam: XR Chest Exam date and time: 11/27/2022 7:14 PM Age: 72 years old Clinical indication: Shortness of breath; Additional info: SOA TECHNIQUE: Imaging protocol: Radiologic exam of the chest. Views: 1 view. COMPARISON: CR XR CHEST PORTABLE 11/25/2022 10:55 AM FINDINGS: Lungs: There is persistent nodular opacity in the right upper lobe and mild patchy infiltrate in the left lower lobe. Pleural spaces: Unremarkable. No pleural effusion. No pneumothorax. Heart/Mediastinum: Unremarkable. No cardiomegaly. Bones/joints: Unremarkable. IMPRESSION: No significant change in 2 days.
[2022-11-27 18:57] VITALS: BP 160/90; PULSE 81; RESP 25
[2022-11-27 19:13] LABS: Basophils # 0.3 K/mm3 (0-0.2); Basophils % 1.7 % (0.1-2.0); Eosinophils # 0.2 K/mm3 (0.0-0.4); Hematocrit 41.9 % (37.0-47.0); Hemoglobin 13.6 g/dL (12.2-16.2); Lymphocytes % 19.1 % (10-50); Mean Corpuscular HGB Conc 32.5 g/dL (31.8-35.4); Mean Corpuscular Hemoglobin 28.1 pg (27.0-31.2); Mean Corpuscular Volume 86.5 fl (81-99); Mean Platelet Volume 7.7 fl (7.4-10.4); Monocytes # 0.7 K/mm3 (0.1-1.0); Monocytes % 4.6 % (1.7-9.3); Neutrophils # 11.7 K/mm3 (1.8-7.8); Neutrophils % 73.6 % (37.0-80.0); Platelet Count 329 K/mm3 (142-424); Red Blood Count 4.84 M/mm3 (4.20-5.40); Red Cell Distribution Width 16.4 % (11.5-17.5); White Blood Count 15.8 K/mm3 (4.8-10.8)
[2022-11-27 19:15] LABS: Chloride 100 mmol/L (98-107); Potassium 4.3 mmoL/L (3.5-5.1); Sodium 140 mmol/L (136-145)
[2022-11-27 19:16] LABS: MANUAL DIFFERENTIAL MANUAL DIFFERENTIAL (MANUAL DIFF)
[2022-11-27 19:18] LABS: Alanine Aminotransferase 14 U/L (12-78); Albumin/Globulin Ratio 1.2 (1.1-1.8); Alkaline Phosphatase 70 U/L (38-126); Anion Gap 7.3 mEq/L (5-15); Aspartate Amino Transferase 23 U/L (14-36); Bilirubin,Total 0.3 mg/dl (0.2-1.3); Blood Urea Nitrogen 12 mg/dl (7-17); Carbon Dioxide 37 mmol/L (22.0-30.0); Creatinine Clearance Estimated 61 mL/min (50-200); Estimated Glomerular Filt Rate 121 ml/min (>60); GFR (African American) 146 ML/MIN (>60); Globulin 3.3 g/dL (1.3-3.2); Total Protein,Serum 7.3 g/dl (6.3-8.2)
[2022-11-27 19:19] LABS: Calcium 9.4 mg/dl (8.4-10.2); Glucose 129 mg/dl (74-100)
--- NOTE | 2022-11-27 19:30 | ECG_ITS ---
APPROVED REPORT Exam: Resting ECG HR:80 bpm ECG Measurements Heart Rate 80 AXES IA 133 P 78 QRSd 81 QRS 79 QT 374 T 73 QTc 409 Conclusion SINUS RHYTHM NORMAL ECG UNCONFIRMED REPORT Electronically signed by : Janes Delgado MD 11/28/2022 06:46:08
[2022-11-27 19:36] LABS: Lymphocytes % 20 % (10-50); Monocytes % 2 % (2-9); Neutrophils % 78 % (42-76); Total Cells Counted 100
[2022-11-27 19:37] LABS: Platelet Estimate Normal; RBC Morphology Normal
--- NOTE | 2022-11-27 20:31 | PC.NURSE ---
RESP HERE FOR ABG
[2022-11-27 20:35] LABS: ABG Base Excess 8.7 mmol/L (-2.4-2.3); ABG HCO3 33.5 mmhg (22.0-26.0); ABG Oxygen Saturation 91 % (90-100); ABG PO2 60.7 mmhg (80-100); ABG TCO2 35.3 mmhg (23-27)
[2022-11-27 20:37] LABS: Allen's Test Acceptable; Oxygen 2LPM N/C %; Source Right Radial
--- NOTE | 2022-11-27 20:38 | HMH.EDSOB ---
Discharge Plan Disposition Patient Disposition: [facility] Chief Complaint: Shortness of Breath/Dyspnea Prescriptions Prescriptions: No Action gabapentin 800 mg tablet 800 mg PO TID Qty: 90 0RF citalopram 40 mg tablet 40 mg PO DAILY Qty: 90 0RF aspirin 81 mg tablet,delayed release (DR/EC) 81 mg PO DAILY Qty: 90 0RF quetiapine 100 mg tablet 300 mg PO HS Qty: 90 0RF Rx Instructions: TAKE 3 TABLETS 1 TIME EACH DAY AT BEDTIME. alprazolam 0.5 mg tablet 0.5 mg PO TID Qty: 90 3RF levothyroxine 50 mcg tablet 50 mcg PO DAILYDM Qty: 90 0RF pantoprazole 40 MG tablet,delayed release (DR/EC) 40 mg PO DAILY Qty: 90 0RF pravastatin 20 mg tablet 20 mg PO HS Qty: 90 0RF ergocalciferol (vitamin D2) 1,250 mcg (50,000 unit) capsule 1,250 mcg PO WEEKLY Qty: 14 3RF albuterol sulfate [ProAir HFA] 90 mcg/actuation HFA aerosol inhaler 2 puff inhalation Q4HP PRN (Reason: Shortness Of Breath Or Wheezing) Qty: 8.5 0RF oxybutynin chloride 5 mg tablet 5 mg PO DAILY Qty: 90 0RF cholecalciferol (vitamin D3) 25 mcg (1,000 unit) capsule 25 mcg PO DAILY Qty: 90 0RF budesonide-formoterol 160-4.5 mcg/actuation HFA aerosol inhaler 2 inh inhalation BID Qty: 10.2 3RF Rx Instructions: INHALE 2 PUFFS 2 TIMES EACH DAY doxycycline hyclate 100 mg Capsule 100 mg PO BID Rx Instructions: end 12/04 Referrals Follow up/Referrals: Provider,Referral, MD [Primary Care Provider] - See instructions Clinical Impressions Clinical Impression: Acute exacerbation of chronic obstructive airways disease Instructions Patient Instructions: DI for Chronic Obstructive Pulmonary Disease Discharge ED Provider: Mark Mcclain Resp/SOB HPI General Chief Complaint: Shortness of Breath/Dyspnea Stated Complaint: shortness of air Time Seen by Provider: 11/27/22 20:38 Mode of Arrival: EMS Source of Information: Patient Limitations: No Limitations Description of Symptoms (Recalled from ER Triage Doc. by RN): pt brought in by ems for soa. pt was just seen in ed on 11/25. pt continues with worsening symptoms. very productive cough. History of Present Illness [facility] -has been on abx and steroids and had recent covid-19 MD Complaint: shortness of breath and cough Onset (ago): day(s) Context: recent illness Severity: moderate Consistency/Duration: constant Known history of: COPD Associated symptoms: denies other symptoms Related Data Home oxygen amount: 2 liters Home Medications Medication Instructions Recorded Confirmed doxycycline hyclate 100 mg capsule 100 mg PO BID uri 11/25/22 11/27/22 Previous Rx's Medication Instructions Recorded albuterol sulfate 90 mcg/actuation 2 puff inhalation Q4HP PRN 10/15/22 aerosol inhaler (ProAir HFA) Shortness Of Breath Or Wheezing #8.5 grams alprazolam 0.5 mg tablet 0.5 mg PO TID Anxiety #90 tabs 10/15/22 aspirin 81 mg tablet,delayed 81 mg PO DAILY Heart disease #90 10/15/22 release tabs budesonide-formoterol HFA 160 2 inh inhalation BID Breathing 10/15/22 mcg-4.5 mcg/actuation aerosol problems #10.2 grams inhaler cholecalciferol (vitamin D3) 25 25 mcg PO DAILY Supplement #90 caps 10/15/22 mcg (1,000 unit) capsule citalopram 40 mg tablet 40 mg PO DAILY Anxiety #90 tabs 10/15/22 ergocalciferol (vitamin D2) 1,250 1,250 mcg PO WEEKLY Supplement #14 10/15/22 mcg (50,000 unit) capsule caps levothyroxine 50 mcg tablet 50 mcg PO DAILYDM thyroid #90 tabs 10/15/22 oxybutynin chloride 5 mg tablet 5 mg PO DAILY overactive bladder 10/15/22 #90 tabs pantoprazole 40 mg tablet,delayed 40 mg PO DAILY GERD #90 tabs 10/15/22 release pravastatin 20 mg tablet 20 mg PO HS Cholesterol #90 tabs 10/15/22 quetiapine 100 mg tablet 300 mg PO HS Anxiety #90 tabs 10/15/22 gabapentin 800 mg tablet 800 mg PO TID nerve pain #90 tabs 10/28/22 Allergies Allergy/AdvReac Type Severity Reaction Status Date / Time metronidaz
[2022-11-27 20:40] LABS: ABG PCO2 55.9 mmhg (35.0-45.0)
[2022-11-27 20:53] LABS: Troponin I < 0.01 ng/ml (0.00-0.034)
[2022-11-27 21:06] LABS: NT Pro Brain Natriuretic Pep. 264 pg/mL (0-125)
--- NOTE | 2022-11-27 21:16 | PC.NURSE ---
called lab for the second time checking on the trop I asked them to run off the blood they received when pt arrived at the ED
[2022-11-27 21:22] LABS: Coronavirus 19, PCR Not Detected (NotDetected); Influenza A, PCR Not Detected (NotDetected); Influenza B, PCR Not Detected (NotDetected)
[2022-11-27 21:54] VITALS: PULSE 83; PULSE 85
--- NOTE | 2022-11-27 23:01 | PC.NURSE ---
Called lab to check time remaining on 2nd troponin, states its almost done . updated
[2022-11-27 23:08] LABS: Troponin I < 0.01 ng/ml (0.00-0.034)
[2022-11-27 23:16] VITALS: BP 163/80; PULSE 81; RESP 22; TEMP 37.1; O2SAT 94
== END 2022-11-27 23:29 ==
PROVIDERS: Student in an Organized Health Care Education/Training Program; Emergency Provider Emergency Medicine
DX: J44.1 Chronic obstructive pulmonary disease with (acute) exacerbation (principal); E03.9 Hypothyroidism, unspecified; I25.10 Atherosclerotic heart disease of native coronary artery without angina pectoris; I10 Essential (primary) hypertension; K57.91 Diverticulosis of intestine, part unspecified, without perforation or abscess with bleeding; K21.9 Gastro-esophageal reflux disease without esophagitis; F17.210 Nicotine dependence, cigarettes, uncomplicated; Z90.710 Acquired absence of both cervix and uterus; Z20.822 Contact with and (suspected) exposure to COVID-19
CPT/HCPCS: 71045; 80053; 82803; 83880; 84484; 85007; 85025; 93005; 96374; 99285; C9803; U0003; U0005

== ENCOUNTER 2022-12-20 00:37 | Observation (INO) | payer MEDICARE, OTHER, SELFPAY ==
[2022-12-20] VITALS (13 sets, daily range): BP systolic 107–125; BP diastolic 54–82; PULSE 62–119; RESP 16–24; TEMP 36.1–38.6; O2SAT 91–95; BMI 26.7; BMI 26.8
[2022-12-20 00:56] LABS: Coronavirus 19, PCR Not Detected (NotDetected); Influenza A, PCR Not Detected (NotDetected); Influenza B, PCR Not Detected (NotDetected); Microscopic, Urine URINE MICROSCOPIC (MICROSCOPIC)
--- NOTE | 2022-12-20 00:57 | XR_ITS ---
PROCEDURE INFORMATION: Exam: XR Chest Exam date and time: 12/20/2022 1:31 AM Age: 72 years old Clinical indication: Shortness of breath; Additional info: SOA TECHNIQUE: Imaging protocol: Radiologic exam of the chest. Views: 1 view. COMPARISON: CR XR CHEST PORTABLE 11/27/2022 7:14 PM FINDINGS: Lungs: Coarse interstitial lung markings likely chronic. Subtle pneumonia in the left lower lobe retrocardiac region not excluded. COPD. Pleural spaces: Blunting of the left costophrenic angle which could reflect tiny pleural effusion. Heart/Mediastinum: Unremarkable. No cardiomegaly. Bones/joints: Unremarkable. IMPRESSION: 1. Subtle pneumonia in the left lower lobe retrocardiac region not excluded. 2. Blunting of the left costophrenic angle which could reflect tiny pleural effusion.
[2022-12-20 01:00] LABS: Appearance,Urine CLEAR (Clear); Bilirubin,Urine Negative (Negative); Blood, Urine Negative (Negative); Color,Urine YELLOW (Yellow); Glucose,Urine (UA) Negative (Negative); Ketones,Urine Negative (Negative); Leukocyte Esterase,Urine Negative (Negative); Nitrate,Urine Negative (Negative); PH,Urine 6.5 (5.0-8.5); Protein,Urine Negative (Negative); Urobilinogen,Urine 0.2 EU/dl (0.2)
[2022-12-20 01:03] LABS: Basophils # 0.1 K/mm3 (0-0.2); Basophils % 0.6 % (0.1-2.0); Eosinophils # 0.1 K/mm3 (0.0-0.4); Eosinophils % 0.7 % (0.1-12.0); Hemoglobin 12.3 g/dL (12.2-16.2); Lymphocytes # 1.9 K/mm3 (0.7-4.5); Lymphocytes % 12.4 % (10-50); Mean Corpuscular HGB Conc 32.4 g/dL (31.8-35.4); Mean Corpuscular Hemoglobin 28.2 pg (27.0-31.2); Mean Corpuscular Volume 87.1 fl (81-99); Mean Platelet Volume 7.3 fl (7.4-10.4); Monocytes # 1.1 K/mm3 (0.1-1.0); Monocytes % 7.3 % (1.7-9.3); Neutrophils # 11.7 K/mm3 (1.8-7.8); Neutrophils % 78.9 % (37.0-80.0); Platelet Count 290 K/mm3 (142-424); Red Blood Count 4.36 M/mm3 (4.20-5.40); Red Cell Distribution Width 16.3 % (11.5-17.5); White Blood Count 14.9 K/mm3 (4.8-10.8)
--- NOTE | 2022-12-20 01:08 | HMH.EDSOB ---
Discharge Plan Disposition Patient Disposition: Admitted As Inpatient Chief Complaint: Shortness of Breath/Dyspnea Clinical Impressions Clinical Impression: Sepsis, COPD (chronic obstructive pulmonary disease), Schizophrenia, Acute exacerbation of chronic obstructive airways disease, Hypothyroidism, HCAP (healthcare-associated pneumonia), SIRS (systemic inflammatory response syndrome) Discharge ED Provider: Johny (ED)Mark Resp/SOB HPI General Chief Complaint: Shortness of Breath/Dyspnea Stated Complaint: SOA Time Seen by Provider: 12/20/22 01:08 Mode of Arrival: EMS Source of Information: Patient, EMS and Medical Record Limitations: Altered Mental Status Description of Symptoms (Recalled from ER Triage Doc. by RN): per correction pt became SOA and hallucinating. upon arrival pt is A&OX3 History of Present Illness [facility] with [facility] and altered ental status MD Complaint: shortness of breath and cough Onset (ago): day(s) Severity: severe Consistency/Duration: intermittent Known history of: COPD and congestive heart failure Related Data Home oxygen amount: 2 liters Home Medications Medication Instructions Recorded Confirmed doxycycline hyclate 100 mg capsule 100 mg PO BID uri 11/25/22 11/27/22 Previous Rx's Medication Instructions Recorded albuterol sulfate 90 mcg/actuation 2 puff inhalation Q4HP PRN 10/15/22 aerosol inhaler (ProAir HFA) Shortness Of Breath Or Wheezing #8.5 grams alprazolam 0.5 mg tablet 0.5 mg PO TID Anxiety #90 tabs 10/15/22 aspirin 81 mg tablet,delayed 81 mg PO DAILY Heart disease #90 10/15/22 release tabs budesonide-formoterol HFA 160 2 inh inhalation BID Breathing 10/15/22 mcg-4.5 mcg/actuation aerosol problems #10.2 grams inhaler cholecalciferol (vitamin D3) 25 25 mcg PO DAILY Supplement #90 caps 10/15/22 mcg (1,000 unit) capsule citalopram 40 mg tablet 40 mg PO DAILY Anxiety #90 tabs 10/15/22 ergocalciferol (vitamin D2) 1,250 1,250 mcg PO WEEKLY Supplement #14 10/15/22 mcg (50,000 unit) capsule caps levothyroxine 50 mcg tablet 50 mcg PO DAILYDM thyroid #90 tabs 10/15/22 oxybutynin chloride 5 mg tablet 5 mg PO DAILY overactive bladder 10/15/22 #90 tabs pantoprazole 40 mg tablet,delayed 40 mg PO DAILY GERD #90 tabs 10/15/22 release pravastatin 20 mg tablet 20 mg PO HS Cholesterol #90 tabs 10/15/22 quetiapine 100 mg tablet 300 mg PO HS Anxiety #90 tabs 10/15/22 gabapentin 800 mg tablet 800 mg PO TID nerve pain #90 tabs 12/11/22 Allergies Allergy/AdvReac Type Severity Reaction Status Date / Time metronidazole Allergy Unknown I-HIVES Verified 11/25/22 11:12 nitrofurantoin Allergy Unknown Unknown Verified 11/25/22 11:12 [From MACROBID] allergy reaction [facility] Disclaimer: The information contained in this section may have been updated after the patient was seen, as this information can be updated by other users. Medical History Abdominal pain Acquired hypothyroidism Acute bronchitis Acute exacerbation of chronic obstructive airways disease Arthritis Aspiration pneumonia Atherosclerotic cardiovascular disease Breast nodule Cholelithiasis Chronic low back pain Closed head injury Colon, diverticulosis Community acquired bacterial pneumonia Community acquired pneumonia COPD exacerbation COPD with acute exacerbation Cough Decreased mobility Depression Diverticulosis Dysphagia E. coli UTI (urinary tract infection) Emphysema/COPD Emphysematous cystitis Esophageal diverticulum Essential hypertension Fall Generalized anxiety disorder GERD (gastroesophageal reflux disease) Gram-negative infection History of cystitis History of dysuria History of falling Hx MRSA infection Hyperlipidemia Hypertension Hypokalemia Hypothyroid Intervertebral disc disorder Low back pain radiating to both legs Lumbar radiculopathy Lung nodule Lung nodule seen on imaging study Migraine Nicotine dependence
[2022-12-20 01:12] LABS: ABG Base Excess 6.3 mmol/L (-2.4-2.3); ABG HCO3 30.9 mmhg (22.0-26.0); ABG Oxygen Saturation 92 % (90-100); ABG PCO2 49.5 mmhg (35.0-45.0); ABG PH 7.41 mmol/L (7.35-7.45); ABG PO2 62.6 mmhg (80-100); ABG TCO2 32.4 mmhg (23-27)
[2022-12-20 01:13] LABS: Allen's Test Acceptable; Oxygen 5LPM %; Source Left Radial
--- NOTE | 2022-12-20 01:13 | ECG_ITS ---
APPROVED REPORT Exam: Resting ECG HR:118 bpm ECG Measurements Heart Rate 118 AXES OK 144 P 72 QRSd 82 QRS 90 QT 340 T 52 QTc 410 Conclusion SINUS TACHYCARDIA WITH OCCASIONAL SUPRAVENTRICULAR PREMATURE COMPLEXES NONSPECIFIC ST & T-WAVE ABNORMALITY ABNORMAL RHYTHM ECG UNCONFIRMED REPORT Electronically signed by : Janes Delgado MD 12/21/2022 12:10:06
[2022-12-20 01:14] LABS: Lactic Acid 0.9 mmol/L (0.7-2.1)
[2022-12-20 01:15] LABS: Alanine Aminotransferase 16 U/L (12-78); Albumin Level 3.9 g/dl (3.5-5.0); Albumin/Globulin Ratio 1.3 (1.1-1.8); Alkaline Phosphatase 77 U/L (38-126); Anion Gap 3.9 mEq/L (5-15); Aspartate Amino Transferase 19 U/L (14-36); Bilirubin,Total 0.6 mg/dl (0.2-1.3); Blood Urea Nitrogen 8 mg/dl (7-17); Calcium 9.3 mg/dl (8.4-10.2); Carbon Dioxide 37 mmol/L (22.0-30.0); Chloride 101 mmol/L (98-107); Creatinine Clearance Estimated 61 mL/min (50-200); Estimated Glomerular Filt Rate 98 ml/min (>60); GFR (African American) 119 ML/MIN (>60); Globulin 3.1 g/dL (1.3-3.2); Glucose 118 mg/dl (74-100); Potassium 3.9 mmoL/L (3.5-5.1); Sodium 138 mmol/L (136-145)
--- NOTE | 2022-12-20 01:18 | PC.NURSE ---
RAD at for CXR
[2022-12-20 01:22] LABS: Amorphous Sediment,Urine Trace /lpf; Bacteria,Urine Trace /lpf; WBC,Urine Occasional #/hpf (0-3)
[2022-12-20 01:27] LABS: NT Pro Brain Natriuretic Pep. 168 pg/mL (0-125)
[2022-12-20 01:30] LABS: Troponin I < 0.01 ng/ml (0.00-0.034)
--- NOTE | 2022-12-20 01:48 | PC.NURSE ---
Hospitalist, Abdiel, at BS
--- NOTE | 2022-12-20 02:05 | EXP.HP ---
History of Present Illness *Admission Date: 12/20/22 *Reason for visit:: Shortness of air, change in mental status *History of present illness: Ms. Sommer is a 72-year-old female who is a resident of a long-term OR facility, she has a past medical history that is positive for COPD, oxygen dependent at 2L, Anxiety Disorder, CAD, Hypothyroidism and Hyperlipidemia. She presented to the ER from the local OR due to Shortness of air and change in mental status. In the ER, the patient was noted to have a temperature of 101.4, HR was 119, WBC was 14.9 on Cxray she has a left lower lobe consolidation. She is currently on 5L and ABG on 5L shows a mild hypoxemia. Covid and Flu testing were negative. She will be admitted with initial impression: Sepsis, cultures were drawn in the ER and she was started on broad spectrum antibiotics. She answered questioning appropriately on exam and does not currently meet criteria for septic shock. The plan of care was discussed with the patient on admission. She verbalized understanding and agreement with the plan of care. [facility] Disclaimer: The information contained in this section may have been updated after the patient was seen, as this information can be updated by other users. Medical History Abdominal pain Acquired hypothyroidism Acute bronchitis Acute exacerbation of chronic obstructive airways disease Arthritis Aspiration pneumonia Atherosclerotic cardiovascular disease Breast nodule Cholelithiasis Chronic low back pain Closed head injury Colon, diverticulosis Community acquired bacterial pneumonia Community acquired pneumonia COPD exacerbation COPD with acute exacerbation Cough Decreased mobility Depression Diverticulosis Dysphagia E. coli UTI (urinary tract infection) Emphysema/COPD Emphysematous cystitis Esophageal diverticulum Essential hypertension Fall Generalized anxiety disorder GERD (gastroesophageal reflux disease) Gram-negative infection History of cystitis History of dysuria History of falling Hx MRSA infection Hyperlipidemia Hypertension Hypokalemia Hypothyroid Intervertebral disc disorder Low back pain radiating to both legs Lumbar radiculopathy Lung nodule Lung nodule seen on imaging study Migraine Nicotine dependence Obesity (BMI 30-39.9) Pneumonia Pseudomonas urinary tract infection Respiratory failure with hypoxia and hypercapnia Rheumatoid arthritis RLL pneumonia Schizoaffective disorder Sepsis Sepsis with acute organ dysfunction SIRS (systemic inflammatory response syndrome) Staphylococcus aureus pneumonia Tobacco dependence Toe pain, left Urinary incontinence UTI (urinary tract infection) Surgical History H/O: hysterectomy Social History Smoking Status: Current every day smoker tobacco type: cigarettes packs per day: 1 second hand exposure: Yes alcohol intake: never substance use type: denies use current occupational status: retired Travel in the last 8 weeks: None household members: family housing: [facility] diet: low salt caffeine: Yes Review of Systems Review of Systems Review of systems:: pertinent systems reviewed and negative unless documented below Constitutional Constitutional: Reports body ache(s) and Reports chills Eyes Eyes: Reports system reviewed and no additional complaints, except as documented ENT Ears, Nose, Mouth, and Throat: Reports system reviewed and no additional complaints, except as documented *Cardiovascular Cardiovascular: Reports system reviewed and no additional complaints, except as documented *Respiratory Respiratory: Reports chest congestion and Reports cough *Gastrointestinal Gastrointestinal: Reports system reviewed and no additional complaints, except as documented *Genitourinary Genitourinary: Reports system reviewed and no ad
--- NOTE | 2022-12-20 02:59 | PC.NURSE ---
Pt arrived to floor via stretcher @ [id number]
[2022-12-20 05:38] LABS: Troponin I < 0.01 ng/ml (0.00-0.034)
--- NOTE | 2022-12-20 05:48 | PC.NURSE ---
pt admitted this shift, most of history and physical and medication rec was obtained from medical records, pt is lethargic most of shift and sleeps when not disturbed, pt is arousable upon name calling, pt could not stay awake long enough to answer questions, f/c to bsd with pamela clear urine noted, when woken up pt was able to answer name, bd, place and year, pt was soft spoken with garbled speech and hard to understand. no acute distress noted, temp down from er, VSS
--- NOTE | 2022-12-20 08:13 | EXP.PHA.CONS ---
Pharmacy Consult Date: 12/20/22 Time: 08:13 Referring provider: DR BLACK Reason for Consult:: VANCOMYCIN DOSING CONSULT Allergies Allergy/AdvReac Type Severity Reaction Status Date / Time metronidazole Allergy Unknown I-HIVES Verified 11/25/22 11:12 nitrofurantoin Allergy Unknown Unknown Verified 11/25/22 11:12 [From MACROBID] allergy reaction Home Medications Medication Instructions Recorded Confirmed Type albuterol sulfate 90 mcg/actuation 2 puff inhalation Q4HP PRN 10/15/22 12/20/22 Rx aerosol inhaler (ProAir HFA) Shortness Of Breath Or Wheezing #8.5 grams alprazolam 0.5 mg tablet 0.5 mg PO TID Anxiety #90 tabs 10/15/22 12/20/22 Rx aspirin 81 mg tablet,delayed 81 mg PO DAILY Heart disease #90 10/15/22 12/20/22 Rx release tabs budesonide-formoterol HFA 160 2 inh inhalation BID Breathing 10/15/22 12/20/22 Rx mcg-4.5 mcg/actuation aerosol problems #10.2 grams inhaler cholecalciferol (vitamin D3) 25 25 mcg PO DAILY Supplement #90 caps 10/15/22 12/20/22 Rx mcg (1,000 unit) capsule citalopram 40 mg tablet 40 mg PO DAILY Anxiety #90 tabs 10/15/22 12/20/22 Rx ergocalciferol (vitamin D2) 1,250 1,250 mcg PO WEEKLY Supplement #14 10/15/22 12/20/22 Rx mcg (50,000 unit) capsule caps levothyroxine 50 mcg tablet 50 mcg PO DAILYDM thyroid #90 tabs 10/15/22 12/20/22 Rx oxybutynin chloride 5 mg tablet 5 mg PO DAILY overactive bladder 10/15/22 12/20/22 Rx #90 tabs pantoprazole 40 mg tablet,delayed 40 mg PO DAILY GERD #90 tabs 10/15/22 12/20/22 Rx release pravastatin 20 mg tablet 20 mg PO HS Cholesterol #90 tabs 10/15/22 12/20/22 Rx quetiapine 100 mg tablet 300 mg PO HS Anxiety #90 tabs 10/15/22 12/20/22 Rx gabapentin 800 mg tablet 800 mg PO TID nerve pain #90 tabs 12/11/22 12/20/22 Rx acetaminophen 500 mg tablet 500 mg PO Q4H PRN Pain 12/20/22 12/20/22 History ipratropium 0.5 mg-albuterol 3 mg 1 ml inhalation Q4H PRN Wheezing 12/20/22 12/20/22 History (2.5 mg base)/3 mL nebulization soln loperamide 2 mg tablet (Imodium 2 mg PO Q6H PRN loose stools 12/20/22 12/20/22 History A-D) New Prescriptions to Start Prescriptions: Height: 1.7 m Weight: 77.564 kg Laboratory Results:: Laboratory Results - last 24 hr 12/20/22 00:50: Urine Color Yellow, Urine Appearance Clear, Urine pH 6.5, Ur Specific [place] 1.020, Urine Protein Negative, Urine Glucose (UA) Negative, Urine Ketones Negative, Urine Blood Negative, Urine Nitrate Negative, Urine Bilirubin Negative, Urine Urobilinogen 0.2, Ur Leukocyte Esterase Negative, Urine WBC Occasional, Amorphous Sediment Trace, Urine Bacteria Trace 12/20/22 00:50: SARS-CoV-2 (PCR) Not detected, Influenza A Untype (PCR) Not detected, Influenza Type B (PCR) Not detected 12/20/22 00:54: WBC 14.9 H, RBC 4.36, Hgb 12.3, Hct 38.0, MCV 87.1, MCH 28.2, MCHC 32.4, RDW 16.3, Plt Count 290, MPV 7.3 L, Neut % (Auto) 78.9, Lymph % (Auto) 12.4, [place] % (Auto) 7.3, Eos % (Auto) 0.7, Baso % (Auto) 0.6, Neut # (Auto) 11.7 H, Lymph # (Auto) 1.9, [place] # (Auto) 1.1 H, Eos # (Auto) 0.1, Baso # (Auto) 0.1 12/20/22 00:54: Sodium 138, Potassium 3.9, Chloride 101, Carbon Dioxide 37 H, Anion Gap 3.9 L, BUN 8, Creatinine 0.60, Estimated Creat Clear 61, Estimated GFR 98, Est GFR ( Amer) 119, Glucose 118 H, Calcium 9.3, Total Bilirubin 0.6, AST 19, ALT 16, Alkaline Phosphatase 77, Troponin I < 0.01, NT-Pro-B Natriuret Pep 168 H, Total Protein 7.0, Albumin 3.9, Globulin 3.1, Albumin/Globulin Ratio 1.3 12/20/22 00:54: Lactate 0.9 12/20/22 00:57: Specimen Source Left radial, O2 % 5lpm, ABG pH 7.41, ABG pCO2 49.5 H, ABG pO2 62.6 L, ABG HCO3 30.9 H, ABG Total CO2 32.4 H, ABG O2 Saturation 92, ABG Base Excess 6.3 H, Jose Test Acceptable 12/20/22 04:15: Troponin I < 0.01 Medical History: Medical History (Updated 12/20/22 @ 02:45 by Mark Mcclain (ED)MD) Abdominal pain Acquired hypothyroidism Acute bronchitis Acute exacerbation of chronic obstructive airways disease Arthritis Aspiration pneu
--- NOTE | 2022-12-20 09:49 | P.CONPHA_ITS ---
Pharmacy Intervention Comments: MEDICATION RECONCILIATION COMPLETED ON PATIENT USING MAR FROM LONG-TERM. -MIGUELANGEL WINTER, PROD
--- NOTE | 2022-12-20 09:49 | EXP.PN ---
Subjective *Date: 12/20/22 *Time: 17:46 Interval history: Date of service December 20, 2022 Nursing staff report that the patient remains afebrile with stable vital signs and saturating appropriately on 2 L of oxygen via nasal cannula which is her typical home requirement. She reports improvement from ED presentation. We have reviewed and discussed her laboratory results. I have personally interpreted her ECG, imaging and laboratory results as follows: Her admission ABG identifies an increased PCO2 of 50 and a decreased PO2 of 63 with a normal pH. Her CBC identifies a mild leukocytosis of 15,000 with hemoglobin of 12 and platelet count 290. Her electrolytes are normal with a BUN of 8 and a creatinine 0.6. Her glucose are under 150. Her lactic acid level is normal. Her troponin trend x 3 is negative. Her BNP is 168. An ECG identifies sinus tachycardia at 118 with occasional PVCs and nonspecific ST-T changes. Her chest x-ray identifies left lower lobe pneumonia and COPD. Exam Data for Last 24 hours Vital signs and Labs for Last 24 Hours: Temp Pulse Resp BP Pulse Ox 97.5 F L 65 22 114/75 91 L 12/20/22 04:00 12/20/22 05:55 12/20/22 04:00 12/20/22 04:00 12/20/22 08:45 Laboratory Results - last 24 hr 12/20/22 00:50: Urine Color Yellow, Urine Appearance Clear, Urine pH 6.5, Ur Specific [place] 1.020, Urine Protein Negative, Urine Glucose (UA) Negative, Urine Ketones Negative, Urine Blood Negative, Urine Nitrate Negative, Urine Bilirubin Negative, Urine Urobilinogen 0.2, Ur Leukocyte Esterase Negative, Urine WBC Occasional, Amorphous Sediment Trace, Urine Bacteria Trace 12/20/22 00:50: SARS-CoV-2 (PCR) Not detected, Influenza A Untype (PCR) Not detected, Influenza Type B (PCR) Not detected 12/20/22 00:54: WBC 14.9 H, RBC 4.36, Hgb 12.3, Hct 38.0, MCV 87.1, MCH 28.2, MCHC 32.4, RDW 16.3, Plt Count 290, MPV 7.3 L, Neut % (Auto) 78.9, Lymph % (Auto) 12.4, [place] % (Auto) 7.3, Eos % (Auto) 0.7, Baso % (Auto) 0.6, Neut # (Auto) 11.7 H, Lymph # (Auto) 1.9, [place] # (Auto) 1.1 H, Eos # (Auto) 0.1, Baso # (Auto) 0.1 12/20/22 00:54: Sodium 138, Potassium 3.9, Chloride 101, Carbon Dioxide 37 H, Anion Gap 3.9 L, BUN 8, Creatinine 0.60, Estimated Creat Clear 61, Estimated GFR 98, Est GFR ( Amer) 119, Glucose 118 H, Calcium 9.3, Total Bilirubin 0.6, AST 19, ALT 16, Alkaline Phosphatase 77, Troponin I < 0.01, NT-Pro-B Natriuret Pep 168 H, Total Protein 7.0, Albumin 3.9, Globulin 3.1, Albumin/Globulin Ratio 1.3 12/20/22 00:54: Lactate 0.9 12/20/22 00:57: Specimen Source Left radial, O2 % 5lpm, ABG pH 7.41, ABG pCO2 49.5 H, ABG pO2 62.6 L, ABG HCO3 30.9 H, ABG Total CO2 32.4 H, ABG O2 Saturation 92, ABG Base Excess 6.3 H, Jose Test Acceptable 12/20/22 04:15: Troponin I < 0.01 I & O for Last 24 hours: Intake & Output 12/17/22 12/18/22 12/19/22 12/20/22 23:59 23:59 23:59 23:59 Intake Total 400 / 400 Output Total 495 / 495 Balance -95 / -95 Weight 77.564 kg Constitutional Constitutional: no acute distress, average body habitus, chronically ill appearing and cooperative *Routine HEENT Exam Head: Present normocephalic Eye: Present EOMI and PERRL ENT: Present mucous membranes moist *Routine Neck Exam Neck: Present supple and trachea midline; Absent lymphadenopathy *Routine Respiratory Exam Respiratory: Present rhonchi, normal respiratory effort and symmetric chest movement *Routine Cardiovascular Exam Cardiovascular: Present RRR *Routine Abdominal Exam Abdominal: Present soft and normoactive bowel sounds; Absent tenderness *Routine Extremities Exam Extremities: Present full ROM, pulses intact and normal capillary refill; Absent cyanosis, clubbing or edema *Routine Skin Exam Skin: Present warm; Absent rash *Routine Neurological Exam Neurological: Present alert, oriented X3, moving all extremities, normal tone, vision grossly intact and hearing grossly intact Routine Psychiatric Exam Psychiatric: Present normal affect, normal t
--- NOTE | 2022-12-20 09:49 | HMH.PHAINT1 ---
Pharmacy Intervention Comments: MEDICATION RECONCILIATION COMPLETED ON PATIENT USING MAR FROM INTERMEDIATE. -MIGUELANGEL WINTER, PROD
[2022-12-20 11:44] LABS: Troponin I < 0.01 ng/ml (0.00-0.034)
--- NOTE | 2022-12-20 12:14 | PC.NURSE ---
Patient's O2 sat 90% on RA. O2 increased to 3L via nasal cannula
--- NOTE | 2022-12-20 12:26 | PC.NURSE ---
Patient's purse locked in drawer. Money verified with Dinorah GOULD, charge nurse and patient
--- NOTE | 2022-12-20 12:27 | CARE MANAGER ---
Patient is [facility] level of care at [facility]. She should be accepted back upon discharge. She will need a COVID swab within 24 hours of discharge. BRYANNA Villareal
--- NOTE | 2022-12-20 22:35 | PC.NURSE ---
Patient had 346 in bladder upon scan. pt hasn't voided per day shift nurse and per manual training teacher tech since the gonsalez was d/c. encouraged pt to pee on the bedside commode. per hospitalist, straight cath patient.
--- NOTE | 2022-12-20 23:21 | PC.NURSE ---
straight cathed patient per hospitalist and got 300cc of urine out. pt tolerated well.
[2022-12-21] VITALS (12 sets, daily range): BP systolic 118–165; BP diastolic 56–85; PULSE 60–91; RESP 16–20; TEMP 36.5–37.1; O2SAT 91–96; BMI 25.8
--- NOTE | 2022-12-21 07:51 | EXP.PN ---
Subjective *Date: 12/21/22 *Time: 11:41 Interval history: Date of service December 21, 2022 The patient reports no acute events overnight. She reports that she is breathing better. Nursing staff report that she remains afebrile with stable vital signs and saturating appropriately on 3 L of oxygen. Her usual care home requirement is 2 L. Her morning labs have been reviewed and discussed. I have personally interpreted her laboratory results as follows: CBC with an improved white blood cell count down to 11.5, hemoglobin stable 11.1, hematocrit 34.9, platelet count 292,000. Her chemistry panel identifies stable electrolytes, BUN 13, creatinine 0.4 and glucose trend under 150. Her procalcitonin is negative. Exam Data for Last 24 hours Vital signs and Labs for Last 24 Hours: Temp Pulse Resp BP Pulse Ox 97.8 F 75 16 132/56 L 94 L 12/21/22 04:00 12/21/22 06:15 12/21/22 04:00 12/21/22 04:00 12/21/22 06:15 Laboratory Results - last 24 hr 12/20/22 11:15: Troponin I < 0.01 I & O for Last 24 hours: Intake & Output 12/18/22 12/19/22 12/20/22 12/21/22 23:59 23:59 23:59 23:59 Intake Total 520 / 520 Output Total 795 / 1095 300 / 300 Balance -275 / -575 -300 / -300 Weight 77.56 kg 74.616 kg Microbiology Reports for the Last 24 Hours: Microbiology 12/20/22 04:30 Sputum - Expectorated Sputum Gram Stain - Final Constitutional Constitutional: no acute distress, average body habitus, chronically ill appearing and cooperative *Routine HEENT Exam Head: Present normocephalic Eye: Present EOMI and PERRL ENT: Present mucous membranes moist *Routine Neck Exam Neck: Present supple and trachea midline; Absent lymphadenopathy *Routine Respiratory Exam Respiratory: Present rhonchi, normal respiratory effort and symmetric chest movement *Routine Cardiovascular Exam Cardiovascular: Present RRR *Routine Abdominal Exam Abdominal: Present soft and normoactive bowel sounds; Absent tenderness *Routine Extremities Exam Extremities: Present full ROM, pulses intact and normal capillary refill; Absent cyanosis, clubbing or edema *Routine Skin Exam Skin: Present warm; Absent rash *Routine Neurological Exam Neurological: Present alert, oriented X3, moving all extremities, normal tone, vision grossly intact and hearing grossly intact Routine Psychiatric Exam Psychiatric: Present normal affect, normal thought process and cooperative Assessment and Plan *Assessment and plan (1) Sepsis: Status: Acute Category: Medical Code(s): A41.9 - Sepsis, unspecified organism (2) Acute encephalopathy: Status: Acute Category: Medical Code(s): G93.40 - Encephalopathy, unspecified (3) Pneumonia: Status: Acute Category: Medical Code(s): J18.9 - Pneumonia, unspecified organism (4) Acute and chronic respiratory failure with hypoxia: Status: Acute Category: Medical Code(s): J96.21 - Acute and chronic respiratory failure with hypoxia (5) Hypothyroidism: Status: Acute Category: Medical Code(s): E03.9 - Hypothyroidism, unspecified (6) Hyperlipidemia: Status: Acute Category: Medical Code(s): E78.5 - Hyperlipidemia, unspecified (7) Anxiety disorder: Status: Acute Category: Medical Code(s): F41.9 - Anxiety disorder, unspecified Plan 72-year-old female who is a resident of a long-term care facility with past medical history of COPD, oxygen dependent at 2L, CAD, anxiety presents with hypoxia and change in mental status. Problems addressed are as follows: Sepsis (POA) Febrile, tachypneic, tachycardic, leukocytoses and findings on imaging Cultures drawn in ER, blood, sputum, urine strep, legionella, MRSA, procalcitonin Started on broad spectrum antibiotics IV fluid resuscitation completed with normal lactic acid noted Trending labs and inflammatory markers Encephalopathy Resolved Most likely
[2022-12-21 08:05] LABS: Basophils # 0.1 K/mm3 (0-0.2); Basophils % 0.4 % (0.1-2.0); Eosinophils % 0.3 % (0.1-12.0); Hematocrit 34.9 % (37.0-47.0); Hemoglobin 11.1 g/dL (12.2-16.2); Lymphocytes # 1.2 K/mm3 (0.7-4.5); Lymphocytes % 10.7 % (10-50); Mean Corpuscular HGB Conc 31.9 g/dL (31.8-35.4); Mean Corpuscular Hemoglobin 28.1 pg (27.0-31.2); Mean Corpuscular Volume 87.9 fl (81-99); Mean Platelet Volume 8.2 fl (7.4-10.4); Monocytes # 0.7 K/mm3 (0.1-1.0); Monocytes % 5.9 % (1.7-9.3); Neutrophils # 9.5 K/mm3 (1.8-7.8); Neutrophils % 82.6 % (37.0-80.0); Platelet Count 292 K/mm3 (142-424); Red Blood Count 3.97 M/mm3 (4.20-5.40); Red Cell Distribution Width 16.1 % (11.5-17.5); White Blood Count 11.5 K/mm3 (4.8-10.8)
[2022-12-21 08:16] LABS: Anion Gap 7.2 mEq/L (5-15); Blood Urea Nitrogen 13 mg/dl (7-17); Calcium 8.9 mg/dl (8.4-10.2); Carbon Dioxide 31 mmol/L (22.0-30.0); Chloride 101 mmol/L (98-107); Creatinine Clearance Estimated 59 mL/min (50-200); Estimated Glomerular Filt Rate 156 ml/min (>60); GFR (African American) 189 ML/MIN (>60); Glucose 140 mg/dl (74-100); Potassium 4.2 mmoL/L (3.5-5.1); Sodium 135 mmol/L (136-145)
[2022-12-21 08:32] LABS: Procalcitonin 0.061 ng/mL (0.0-2.0)
--- NOTE | 2022-12-21 11:55 | PC.NURSE ---
pt refused to get up for lunch. refused breathing treatment.
[2022-12-22] VITALS: BP 130/53; PULSE 70; PULSE 73; RESP 16; TEMP 36.8; O2SAT 95
[2022-12-22 03:30] LABS: Anion Gap 9.7 mEq/L (5-15); Blood Urea Nitrogen 18 mg/dl (7-17); Calcium 8.6 mg/dl (8.4-10.2); Carbon Dioxide 26 mmol/L (22.0-30.0); Chloride 105 mmol/L (98-107); Creatinine Clearance Estimated 59 mL/min (50-200); Estimated Glomerular Filt Rate 156 ml/min (>60); GFR (African American) 189 ML/MIN (>60); Glucose 104 mg/dl (74-100); Sodium 135 mmol/L (136-145)
[2022-12-22 03:32] LABS: Potassium 5.7 mmoL/L (3.5-5.1)
--- NOTE | 2022-12-22 03:57 | PC.NURSE ---
spoke with lab regarding potassium 5.7, stated the specimen was hemolyzed and would redraw with am labs.
[2022-12-22 04:00] VITALS: BP 156/70; PULSE 64; PULSE 69; RESP 16; TEMP 37; O2SAT 96; BMI 26.3
[2022-12-22 04:26] LABS: Coronavirus 19, PCR Not Detected (NotDetected); Influenza A, PCR Not Detected (NotDetected); Influenza B, PCR Not Detected (NotDetected)
--- NOTE | 2022-12-22 05:25 | PC.NURSE ---
pt has rested well through the night. 3L nc. a&ox4. no complaints of pain. iv abx.
[2022-12-22 06:45] VITALS: PULSE 69; PULSE 72; O2SAT 93
[2022-12-22 08:00] VITALS: BP 145/73; PULSE 76; RESP 17; TEMP 36.7; O2SAT 94
--- NOTE | 2022-12-22 08:18 | EXP.DC.SUM ---
General Admission date:: 12/20/22 Discharge date: 12/22/22 HPI HPI HPI: Ms. Sommer is a 72-year-old female who is a resident of a [place]term [place] facility, she has a past medical history that is positive for COPD, oxygen dependent at 2L, Anxiety Disorder, CAD, Hypothyroidism and Hyperlipidemia. She presented to the ER from the local [place] due to Shortness of air and change in mental status. In the ER, the patient was noted to have a temperature of 101.4, HR was 119, WBC was 14.9 on Cxray she has a left lower lobe consolidation. She is currently on 5L and ABG on 5L shows a mild hypoxemia. Covid and Flu testing were negative. She will be admitted with initial impression: Sepsis, cultures were drawn in the ER and she was started on broad spectrum antibiotics. She answered questioning appropriately on exam and does not currently meet criteria for septic shock. The plan of care was discussed with the patient on admission. She verbalized understanding and agreement with the plan of care. Hospital Course Hospital Course Hospital Course: The patient was admitted to the medical floor with telemetry and pulse oximetry monitoring. Blood cultures were acquired and she was started on broad-spectrum IV antibiotic therapy for findings on chest x-ray. Her laboratory studies and inflammatory markers were trended. Her leukocytoses improved. She tolerated her IV fluid resuscitation and it was transitioned to p.o. Her psychotropic medications were adjusted for her advanced age and her encephalopathy resolved. Her oxygen requirements diminished and she was maintained on her usual oxygen requirements. She identified an improvement and inquired about transition back to her facility. She will be discharged back to her facility on a course of Augmentin therapy for suspected aspiration from her encephalopathic process. We have recommended a reduction in her benzodiazepine therapy and gabapentin therapy with her advanced age and encephalopathic presentation. Exam Data for Last 24 hours Vital signs and Labs for Last 24 Hours: Temp Pulse Resp BP Pulse Ox 98.6 F 69 16 156/70 H 93 L 12/22/22 04:00 12/22/22 06:45 12/22/22 04:00 12/22/22 04:00 12/22/22 06:45 Laboratory Results - last 24 hr 12/21/22 07:33: Procalcitonin 0.061 12/22/22 03:05: Sodium 135 L, Potassium 5.7 H D, Chloride 105, Carbon Dioxide 26, Anion Gap 9.7, BUN 18 H D, Creatinine 0.40 L, Estimated Creat Clear 59, Estimated GFR 156, Est GFR ( Amer) 189, Glucose 104 H D, Calcium 8.6 12/22/22 03:05: Vancomycin Trough 6.0 12/22/22 04:14: SARS-CoV-2 (PCR) Not detected, Influenza A Untype (PCR) Not detected, Influenza Type B (PCR) Not detected I & O for Last 24 hours: Intake & Output 12/19/22 12/20/22 12/21/22 12/22/22 23:59 23:59 23:59 23:59 Intake Total 520 / 520 480 / 480 Output Total 795 / 1095 300 / 300 Balance -275 / -575 180 / 180 Weight 77.56 kg 74.616 kg 76.113 kg Microbiology Reports for the Last 24 Hours: Microbiology 12/20/22 00:54 Blood Blood Culture - Preliminary NO GROWTH AFTER 48 HOURS 12/20/22 00:54 Blood Blood Culture - Preliminary NO GROWTH AFTER 48 HOURS 12/20/22 04:30 Sputum - Expectorated Sputum Gram Stain - Final 12/20/22 04:30 Sputum - Expectorated Sputum Sputum Culture - Preliminary Constitutional Constitutional: no acute distress, average body habitus, chronically ill appearing and cooperative *Routine HEENT Exam Head: Present normocephalic Eye: Present EOMI and PERRL ENT: Present mucous membranes moist *Routine Neck Exam Neck: Present supple and trachea midline; Absent lymphadenopathy *Routine Respiratory Exam Respiratory: Present rhonchi, normal respiratory effort and symmetric chest movement *Routine Cardiovascular Exam Cardiovascular: Present RRR *Routine Abdominal Exam Abdominal: Present soft and normoactive bowel sounds; Absent tenderness *Routine Extremiti
[2022-12-22 08:22] LABS: Basophils # 0.1 K/mm3 (0-0.2); Basophils % 0.6 % (0.1-2.0); Eosinophils # 0.1 K/mm3 (0.0-0.4); Eosinophils % 0.5 % (0.1-12.0); Hemoglobin 11.5 g/dL (12.2-16.2); Lymphocytes # 2.1 K/mm3 (0.7-4.5); Lymphocytes % 18.2 % (10-50); Mean Corpuscular HGB Conc 31.9 g/dL (31.8-35.4); Mean Corpuscular Hemoglobin 27.9 pg (27.0-31.2); Mean Corpuscular Volume 87.2 fl (81-99); Mean Platelet Volume 8.4 fl (7.4-10.4); Monocytes # 0.8 K/mm3 (0.1-1.0); Monocytes % 6.5 % (1.7-9.3); Neutrophils # 8.6 K/mm3 (1.8-7.8); Neutrophils % 74.2 % (37.0-80.0); Platelet Count 311 K/mm3 (142-424); Red Blood Count 4.13 M/mm3 (4.20-5.40); Red Cell Distribution Width 16.2 % (11.5-17.5); White Blood Count 11.7 K/mm3 (4.8-10.8)
[2022-12-22 08:26] LABS: Potassium 4.1 mmoL/L (3.5-5.1)
[2022-12-22 08:34] LABS: Vancomycin,Peak 30.6 ug/ml (11-39)
--- NOTE | 2022-12-22 10:43 | PC.NURSE ---
pt has been disachrged from the facility via EMS. all belongings sent with patient incluing burgos verified with Winnie GOULD. report called [facility] Tabitha [facility]
--- NOTE | 2022-12-23 13:44 | CARE MANAGER ---
Spoke with patient nurse at [facility] for post-discharge phone interview, no issues noted.
[2022-12-23 22:08] LABS: Body Fluid Culture, Sterile Not indicated. (.); Organism ID Not indicated. (.); Specimen Source Urine (.); Streptococcus pneumoniae Ag Negative (Negative)
[2022-12-23 22:08] LABS: Legionella pneumophila Urinary Negative (Negative)
== END 2022-12-22 10:44 ==
LOC: ER 01:30 → 2ND 02:07
PROVIDERS: Nurse Practitioner Family; Admitting Provider Family Medicine; Emergency Provider Emergency Medicine; PCP Emergency Medicine; Visit Provider Family Medicine
DX: J18.9 Pneumonia, unspecified organism (principal); Z99.81 Dependence on supplemental oxygen; J44.1 Chronic obstructive pulmonary disease with (acute) exacerbation; F20.9 Schizophrenia, unspecified; G93.40 Encephalopathy, unspecified; E03.9 Hypothyroidism, unspecified; E78.5 Hyperlipidemia, unspecified; F41.9 Anxiety disorder, unspecified; J96.21 Acute and chronic respiratory failure with hypoxia; R06.9 Unspecified abnormalities of breathing; Z20.822 Contact with and (suspected) exposure to COVID-19
CPT/HCPCS: G0378; 36415; 51702; 71045; 80048; 80053; 80202; 81001; 82803; 83605; 83880; 84132; 84145; 84484; 85025; 87040; 87070; 87077; 87205; 87899; 93005; 94640; 94761; 99285; C9803; U0003; U0005

== ENCOUNTER 2023-03-28 07:48 | Inpatient (IN) | payer MEDICARE, MEDICAID, SELFPAY ==
[2023-03-28] VITALS (17 sets, daily range): BP systolic 112–164; BP diastolic 39–140; PULSE 68–140; RESP 16–28; TEMP 36.6–37.4; O2SAT 2–97; BMI 30.5; BMI 30.6
--- NOTE | 2023-03-28 07:48 | ECG_ITS ---
APPROVED REPORT Exam: Resting ECG HR:149 bpm ECG Measurements Heart Rate 149 AXES QRSd 82 QRS 77 QT 309 T 65 QTc 394 Conclusion ATRIAL FIBRILLATION WITH RAPID VENTRICULAR RESPONSE NONSPECIFIC ST & T-WAVE ABNORMALITY ABNORMAL RHYTHM ECG UNCONFIRMED REPORT Electronically signed by : Janes Delgado MD 03/29/2023 07:46:04
--- NOTE | 2023-03-28 08:03 | HMH.EDGENADL ---
Discharge Plan Disposition Patient Disposition: Admitted As Inpatient Clinical Impressions Clinical Impression: Pneumonia, Sepsis Discharge ED Provider: Gonzalo Sommer General Adult HPI General Chief complaint: Shortness of Breath/Dyspnea Stated complaint: soa Time Seen by Provider: 03/28/23 08:03 History of Present Illness HPI narrative: Patient is a 72-year-old female presenting with dyspnea unable to catch her breath with cough increasing sputum production over the last several weeks worsening the last few days. She denies any lower extremity swelling or history of heart failure. She denies any fevers at home. She states she has not been feeling well the last few days however. No sick contacts that she is aware of. Her only other symptoms that she claims that she has some pain in her right flank area just under her scapula on the right side and she was told that this was a muscle strain. Related Data Home Medications Medication Instructions Recorded Confirmed acetaminophen 500 mg tablet 500 mg PO Q4HP PRN Pain 12/20/22 12/20/22 ipratropium 0.5 mg-albuterol 3 mg 3 ml inhalation Q4HP PRN Wheezing 12/20/22 12/20/22 (2.5 mg base)/3 mL nebulization soln loperamide 2 mg tablet (Imodium 2 mg PO Q6HP PRN loose stools 12/20/22 12/20/22 A-D) Previous Rx's Medication Instructions Recorded albuterol sulfate 90 mcg/actuation 2 puff inhalation Q4HP PRN 10/15/22 aerosol inhaler (ProAir HFA) Shortness Of Breath Or Wheezing #8.5 grams aspirin 81 mg tablet,delayed 81 mg PO DAILY Heart disease #90 10/15/22 release tabs budesonide-formoterol HFA 160 2 inh inhalation BID Breathing 10/15/22 mcg-4.5 mcg/actuation aerosol problems #10.2 grams inhaler cholecalciferol (vitamin D3) 25 25 mcg PO DAILY Supplement #90 caps 10/15/22 mcg (1,000 unit) capsule citalopram 40 mg tablet 40 mg PO DAILY Anxiety #90 tabs 10/15/22 ergocalciferol (vitamin D2) 1,250 1,250 mcg PO WEEKLY Supplement #14 10/15/22 mcg (50,000 unit) capsule caps levothyroxine 50 mcg tablet 50 mcg PO DAILYDM thyroid #90 tabs 10/15/22 oxybutynin chloride 5 mg tablet 5 mg PO DAILY overactive bladder 10/15/22 #90 tabs pantoprazole 40 mg tablet,delayed 40 mg PO DAILY GERD #90 tabs 10/15/22 release pravastatin 20 mg tablet 20 mg PO HS Cholesterol #90 tabs 10/15/22 quetiapine 100 mg tablet 300 mg PO HS Anxiety #90 tabs 10/15/22 amoxicillin 500 mg-potassium 1 tab PO Q8H #21 tabs 12/22/22 clavulanate 125 mg tablet (Augmentin) prednisone 20 mg tablet 40 mg PO DAILY #10 tabs 12/22/22 gabapentin 400 mg capsule 400 mg PO TID #90 caps 01/29/23 alprazolam 0.25 mg tablet 0.25 mg PO TID #90 tabs 03/24/23 Allergies Allergy/AdvReac Type Severity Reaction Status Date / Time metronidazole Allergy Unknown I-HIVES Verified 11/25/22 11:12 nitrofurantoin Allergy Unknown Unknown Verified 11/25/22 11:12 [From MACROBID] allergy reaction [facility] Disclaimer: The information contained in this section may have been updated after the patient was seen, as this information can be updated by other users. Medical History Abdominal pain Acquired hypothyroidism Acute bronchitis Acute exacerbation of chronic obstructive airways disease Arthritis Aspiration pneumonia Atherosclerotic cardiovascular disease Breast nodule Cholelithiasis Chronic low back pain Closed head injury Colon, diverticulosis Community acquired bacterial pneumonia Community acquired pneumonia COPD exacerbation COPD with acute exacerbation Cough Decreased mobility Depression Diverticulosis Dysphagia E. coli UTI (urinary tract infection) Emphysema/COPD Emphysematous cystitis Esophageal diverticulum Essential hypertension Fall Generalized anxiety disorder GERD (gastroesophageal reflux disease) Gram-negative infection History of cystitis History of dysuria History of falling Hx MRSA infection Hyperlipidemia Hypertension Hypokal
[2023-03-28 08:18] LABS: Basophils # 0.1 K/mm3 (0-0.2); Basophils % 0.3 % (0.1-2.0); Eosinophils # 0.2 K/mm3 (0.0-0.4); Eosinophils % 0.9 % (0.1-12.0); Hematocrit 38.8 % (37.0-47.0); Hemoglobin 12.3 g/dL (12.2-16.2); Lymphocytes # 1.7 K/mm3 (0.7-4.5); Lymphocytes % 7.3 % (10-50); Mean Corpuscular HGB Conc 31.6 g/dL (31.8-35.4); Mean Corpuscular Hemoglobin 26.6 pg (27.0-31.2); Mean Corpuscular Volume 84.1 fl (81-99); Monocytes % 4.1 % (1.7-9.3); Neutrophils # 20.9 K/mm3 (1.8-7.8); Neutrophils % 87.4 % (37.0-80.0); Platelet Count 397 K/mm3 (142-424); Red Blood Count 4.62 M/mm3 (4.20-5.40); Red Cell Distribution Width 14.7 % (11.5-17.5); White Blood Count 23.9 K/mm3 (4.8-10.8)
[2023-03-28 08:21] LABS: MANUAL DIFFERENTIAL MANUAL DIFFERENTIAL (MANUAL DIFF)
[2023-03-28 08:22] LABS: Alanine Aminotransferase 18 U/L (12-78); Albumin Level 4.2 g/dl (3.5-5.0); Albumin/Globulin Ratio 1.4 (1.1-1.8); Alkaline Phosphatase 82 U/L (38-126); Anion Gap 13.3 mEq/L (5-15); Aspartate Amino Transferase 26 U/L (14-36); Bilirubin,Total 0.2 mg/dl (0.2-1.3); Blood Urea Nitrogen 11 mg/dl (7-17); Carbon Dioxide 33 mmol/L (22.0-30.0); Chloride 95 mmol/L (98-107); Creatinine Clearance Estimated 70 mL/min (50-200); Estimated Glomerular Filt Rate 98 ml/min (>60); GFR (African American) 119 ML/MIN (>60); Glucose 107 mg/dl (74-100); Potassium 4.3 mmoL/L (3.5-5.1); Sodium 137 mmol/L (136-145); Total Protein,Serum 7.2 g/dl (6.3-8.2)
[2023-03-28 08:34] LABS: NT Pro Brain Natriuretic Pep. 53.6 pg/mL (0-125)
[2023-03-28 08:35] LABS: Anisocytosis 1+; Hypochromasia 1+; Lymphocytes % 4 % (10-50); Monocytes % 7 % (2-9); Neutrophils % 88 % (42-76); Ovalocytes 1+; Platelet Estimate Normal; Total Cells Counted 100
[2023-03-28 08:38] LABS: Troponin I 0.01 ng/ml (0.00-0.034)
--- NOTE | 2023-03-28 08:38 | PC.NURSE ---
pt given pillow
--- NOTE | 2023-03-28 08:50 | PC.NURSE ---
RT aware of VBG
--- NOTE | 2023-03-28 08:52 | XR_ITS ---
FINAL REPORT CLINICAL HISTORY: Shortness of breath, fever, cough COMPARISON: 12/20/2022 FINDINGS: A single portable view of the chest was obtained. The heart size and pulmonary vascularity are within normal limits. The mediastinum is within normal limits. The lungs are hyperinflated consistent with COPD. There are mild left basilar opacities favored to represent atelectasis over pneumonia. There is a 13 mm right upper lobe nodule which is visually stable. The bony thorax is intact. IMPRESSION: Mild left basilar opacities, favor atelectasis over pneumonia. Visually stable right upper lobe nodule. If indicated, follow-up chest CT or PET-CT may be helpful Reviewed, Interpreted and Dictated by Luis Billingsley III, MD Transcribed by Yancy Weeks Authenticated and [facility]
[2023-03-28 08:53] LABS: Microscopic, Urine URINE MICROSCOPIC (MICROSCOPIC)
[2023-03-28 08:55] LABS: Coronavirus 19, PCR Not Detected (NotDetected); Influenza A, PCR Not Detected (NotDetected); Influenza B, PCR Not Detected (NotDetected)
[2023-03-28 08:59] LABS: Appearance,Urine CLEAR (Clear); Bilirubin,Urine Negative (Negative); Blood, Urine Negative (Negative); Color,Urine YELLOW (Yellow); Glucose,Urine (UA) Negative (Negative); Ketones,Urine Negative (Negative); Leukocyte Esterase,Urine Negative (Negative); Nitrate,Urine Negative (Negative); PH,Urine 6.5 (5.0-8.5); Protein,Urine Negative (Negative); Specific Gravity, Urine 1.015 (1.005-1.030); Urobilinogen,Urine 0.2 EU/dl (0.2)
[2023-03-28 09:09] LABS: Lactic Acid 1.3 mmol/L (0.7-2.1)
[2023-03-28 09:11] LABS: VBG HCO3 28.9 mmol/L (23-30); VBG Oxygen Saturation 84.6 % (50-70); VBG PH 7.34 mmol/L (7.31-7.41); VBG PO2 51.3 mmol/L (28-40); VBG Total CO2 30.6 mmol/L (23-27)
[2023-03-28 09:15] LABS: VBG PCO2 55.4 mmol/L (35-51)
[2023-03-28 09:22] LABS: Bacteria,Urine 2+ /lpf; RBC,Urine Occasional #/hpf (0-3); Squamous Epithelial Cell,Urine Occasional #/hpf (0-5); WBC,Urine Occasional #/hpf (0-3)
--- NOTE | 2023-03-28 10:01 | PC.NURSE ---
pt turned and repositioned, second pillow given at this time
--- NOTE | 2023-03-28 10:13 | PC.NURSE ---
Rounded on patient, pt asleep on ED stretcher. RR: 19. Call guzman within reach. no other needs at this time
--- NOTE | 2023-03-28 11:18 | PC.NURSE ---
spoke to care management for bed placement.
--- NOTE | 2023-03-28 11:31 | PC.NURSE ---
Dr Sommer speaking with dr Foley
--- NOTE | 2023-03-28 11:55 | PC.NURSE ---
report called to alberto on second floor.
--- NOTE | 2023-03-28 12:58 | PC.NURSE ---
Pt to med surg per tru
--- NOTE | 2023-03-28 13:03 | PC.NURSE ---
patient arrived to room at 13:00 by stretcher from ED
--- NOTE | 2023-03-28 13:28 | P.CONPHA_ITS ---
Pharmacy Intervention Comments: MEDICATION RECONCILIATION COMPLETED ON PATIENT USING MAR FROM [facility]. -MIGUELANGEL WINTER, PROD
--- NOTE | 2023-03-28 13:28 | HMH.PHAINT1 ---
Pharmacy Intervention Comments: MEDICATION RECONCILIATION COMPLETED ON PATIENT USING [facility] FROM [facility]. -MIGUELANGEL WINTER, PROD
[2023-03-28 15:19] LABS: Troponin I 0.06 ng/ml (0.00-0.034)
--- NOTE | 2023-03-28 17:19 | EXP.HP ---
History of Present Illness *Admission Date: 03/28/23 *Reason for visit:: SOA at [facility] *History of present illness: 72-year-old female presents to the emergency department with shortness of air. Has a past medical history of anxiety hyperlipidemia, depression, tobacco dependence, hypothyroidism and COPD. Patient states while using the bathroom she became short of breath with movement between the wheelchair and her bed. This required the patient to use oxygen which she states she does not normally use. Patient was sent from [facility] to emergency department for further evaluation. Upon arrival patient was requiring 4 L of nasal cannula oxygen she was tachypneic, short of breath, tachycardia, and had a white blood cell count of 23.9. Patient was admitted for further evaluation of pneumonia and sepsis. After rounding on patient she denies chest pain, abdominal pain, Headache, or dizziness. States she is feeling better, admits to nausea but is about to eat dinner. [facility] Disclaimer: The information contained in this section may have been updated after the patient was seen, as this information can be updated by other users. Medical History Abdominal pain Acquired hypothyroidism Acute bronchitis Acute exacerbation of chronic obstructive airways disease Arthritis Aspiration pneumonia Atherosclerotic cardiovascular disease Breast nodule Cholelithiasis Chronic low back pain Closed head injury Colon, diverticulosis Community acquired bacterial pneumonia Community acquired pneumonia COPD exacerbation COPD with acute exacerbation Cough Decreased mobility Depression Diverticulosis Dysphagia E. coli UTI (urinary tract infection) Emphysema/COPD Emphysematous cystitis Esophageal diverticulum Essential hypertension Fall Generalized anxiety disorder GERD (gastroesophageal reflux disease) Gram-negative infection History of cystitis History of dysuria History of falling Hx MRSA infection Hyperlipidemia Hypertension Hypokalemia Hypothyroid Intervertebral disc disorder Low back pain radiating to both legs Lumbar radiculopathy Lung nodule Lung nodule seen on imaging study Migraine Nicotine dependence Obesity (BMI 30-39.9) Pneumonia Pseudomonas urinary tract infection Respiratory failure with hypoxia and hypercapnia Rheumatoid arthritis RLL pneumonia Schizoaffective disorder Sepsis Sepsis with acute organ dysfunction SIRS (systemic inflammatory response syndrome) Staphylococcus aureus pneumonia Tobacco dependence Toe pain, left Urinary incontinence UTI (urinary tract infection) Surgical History H/O: hysterectomy Family History No significant family history Social History Smoking Status: Former smoker second hand exposure: Yes alcohol intake: never substance use type: denies use current occupational status: retired Travel in the last 8 weeks: None household members: family housing: [facility] diet: low salt caffeine: Yes Review of Systems Review of Systems Review of systems:: pertinent systems reviewed and negative unless documented below Constitutional Constitutional: Reports system reviewed and no additional complaints, except as documented Eyes Eyes: Denies blurry vision, Denies change in vision, Denies diplopia, Denies loss of vision and Reports other Comments: cataracts *Cardiovascular Cardiovascular: Denies chest pain, Reports dyspnea, Reports dyspnea on exertion and Denies pedal edema *Respiratory Respiratory: Reports dyspnea, Reports dyspnea on exertion, Denies pain on inspiration and Denies stridor *Gastrointestinal Gastrointestinal: Reports system reviewed and no additional complaints, except as documented and Denies abdominal pain *Neurologic Neurologic: Denies los
--- NOTE | 2023-03-28 17:47 | PC.NURSE ---
pt is on 2L NC, O2 sat 94%, IS at bedside, pt demonstrated use and verbalizes understanding, no complaints of pain, expiratory wheezing noted on auscultation
--- NOTE | 2023-03-28 20:44 | PC.NURSE ---
She is A&Ox4. Her speech is clear. She denies pain. She rpeorts that her last BM was yesterday. She states she turns her self independently. She is voiding per f/c. Urine is straw colored and clear. IS performed-1000. She continues on 2LPM n/c. She states she wears the oxygen occasionally at the longterm.
--- NOTE | 2023-03-29 03:27 | PC.NURSE ---
PATIENT RESTING QUIETLY IN BED. VITAL SIGNS STABLE. 02 SAT 90% ON 2LNC, NAD. NO COMPLAINTS. R AT 0100ECEIVED REPORT FROM Brad RODRIGUEZ RN AT 0100.
[2023-03-29 04:00] VITALS: BP 121/68; PULSE 72; RESP 18; TEMP 37; O2SAT 94; BMI 30.6
[2023-03-29 07:51] VITALS: BP 115/51; PULSE 82; RESP 18; TEMP 36.6; O2SAT 91
[2023-03-29 09:12] LABS: Basophils % 0.2 % (0.1-2.0); Eosinophils # 0.3 K/mm3 (0.0-0.4); Eosinophils % 1.6 % (0.1-12.0); Lymphocytes # 2.4 K/mm3 (0.7-4.5); Lymphocytes % 13.1 % (10-50); Mean Corpuscular Hemoglobin 27.3 pg (27.0-31.2); Mean Corpuscular Volume 85.3 fl (81-99); Mean Platelet Volume 7.3 fl (7.4-10.4); Monocytes % 5.7 % (1.7-9.3); Neutrophils # 14.4 K/mm3 (1.8-7.8); Neutrophils % 79.4 % (37.0-80.0); Platelet Count 321 K/mm3 (142-424); Red Blood Count 3.99 M/mm3 (4.20-5.40); Red Cell Distribution Width 14.9 % (11.5-17.5); White Blood Count 18.2 K/mm3 (4.8-10.8)
[2023-03-29 09:21] LABS: Alanine Aminotransferase 14 U/L (12-78); Albumin Level 3.4 g/dl (3.5-5.0); Albumin/Globulin Ratio 1.3 (1.1-1.8); Alkaline Phosphatase 67 U/L (38-126); Anion Gap 12.8 mEq/L (5-15); Aspartate Amino Transferase 21 U/L (14-36); Bilirubin,Total 0.4 mg/dl (0.2-1.3); Blood Urea Nitrogen 10 mg/dl (7-17); Calcium 8.5 mg/dl (8.4-10.2); Carbon Dioxide 32 mmol/L (22.0-30.0); Chloride 97 mmol/L (98-107); Creatinine Clearance Estimated 70 mL/min (50-200); Estimated Glomerular Filt Rate 98 ml/min (>60); GFR (African American) 119 ML/MIN (>60); Globulin 2.6 g/dL (1.3-3.2); Glucose 118 mg/dl (74-100); Hemoglobin 10.9 g/dL (12.2-16.2); Magnesium 1.7 mg/dl (1.6-2.3); Potassium 3.8 mmoL/L (3.5-5.1); Sodium 138 mmol/L (136-145)
[2023-03-29 09:23] LABS: MANUAL DIFFERENTIAL MANUAL DIFFERENTIAL (MANUAL DIFF)
--- NOTE | 2023-03-29 10:02 | EXP.ACUTE.PN ---
Subjective *Date: 03/29/23 *Time: 10:02 Interval history: Patient stable on 2 L overnight. Afebrile. Tolerating p.o. intake. Denies any nausea, vomiting, chest pain, shortness of breath. Medical Exam Vital signs and Labs for Last 24 Hours: Vital Signs Temp Pulse Pulse Resp BP BP Pulse Ox 03/29/23 07:51 97.8 F 82 18 115/51 L 91 L 03/29/23 04:00 98.6 F 72 18 121/68 94 L 03/28/23 20:00 2 L 03/28/23 20:00 98.2 F 86 18 137/57 L 90 L 03/28/23 17:44 94 L 03/28/23 15:32 99.3 F 88 18 112/73 97 03/28/23 15:39 88 96 03/28/23 13:16 98.7 F 88 18 155/73 H 96 03/28/23 13:13 97.8 F 68 16 124/61 03/28/23 12:30 88 20 124/61 94 L 03/28/23 12:00 102 H 20 124/65 96 03/28/23 11:30 100 H 18 128/57 L 94 L 03/28/23 11:01 97 H 21 125/56 L 93 L 03/28/23 10:53 112 H 20 130/61 92 L 03/28/23 10:31 114 H 21 131/39 L 92 L Intake and Output 03/28/23 03/29/23 03/29/23 23:59 07:59 15:59 Intake Total 480 / 970 130 / 130 Output Total 600 / 600 0 / 600 Balance 480 / -630 -470 / -470 0 / -470 Intake: Intake, Oral Amount 480 / 960 120 / 120 Intake, Other Amount 10 / 10 Output: Output, Urine Amount 600 / 600 0 / 600 Other: Intake, Other Source Saline Solution Number of Unmeasured Voids 0 1 1 Weight 88.59 kg Patient Weight 03/29/23 23:59 Weight 88.59 kg Laboratory Results - last 24 hr 03/28/23 14:22: Troponin I 0.06 H 03/29/23 07:51: WBC 18.2 H, RBC 3.99 L, Hgb 10.9 L D, Hct 34.0 L, MCV 85.3, MCH 27.3, MCHC 32.0, RDW 14.9, Plt Count 321, MPV 7.3 L, Neut % (Auto) 79.4, Lymph % (Auto) 13.1, [place] % (Auto) 5.7, Eos % (Auto) 1.6, Baso % (Auto) 0.2, Neut # (Auto) 14.4 H, Lymph # (Auto) 2.4, [place] # (Auto) 1.0, Eos # (Auto) 0.3, Baso # (Auto) 0.0 03/29/23 07:51: Sodium 138, Potassium 3.8, Chloride 97 L, Carbon Dioxide 32 H, Anion Gap 12.8, BUN 10, Creatinine 0.60, Estimated Creat Clear 70, Estimated GFR 98, Est GFR ( Amer) 119, Glucose 118 H, Calcium 8.5, Magnesium 1.7, Total Bilirubin 0.4, AST 21, ALT 14, Alkaline Phosphatase 67, Total Protein 6.0 L, Albumin 3.4 L D, Globulin 2.6, Albumin/Globulin Ratio 1.3 I & O for Labs for Last 24 Hours: Intake & Output 03/26/23 03/27/23 03/28/23 03/29/23 23:59 23:59 23:59 23:59 Intake Total 960 / 970 130 / 130 Output Total 1200 / 1600 600 / 600 Balance -240 / -630 -470 / -470 Weight 88.592 kg 88.59 kg Microbiology Reports for the Last 24 Hours: Microbiology 03/28/23 08:37 Urine,Clean Catch Urine Culture - Preliminary Constitutional: Present no acute distress, obese and chronically ill appearing Head: Present atraumatic and normocephalic ENT: Present normal exam Respiratory: Present crackles and normal respiratory effort; Absent accessory muscle use, rhonchi or wheezes Cardiac: Present Reg Rate and Rhythm GI: Present soft and normal bowel sounds; Absent distention or tenderness Extremities: Present normal inspection and full ROM Skin: Present intact; Absent erythema Neuro: Present Grossly Intact, alert, awake, oriented x 3 and moves all extremities Assessment and Plan *Assessment and plan (1) Pneumonia: Status: Acute Category: Medical Code(s): J18.9 - Pneumonia, unspecified organism (2) Sepsis: Status: Acute Category: Medical Code(s): A41.9 - Sepsis, unspecified organism (3) COPD (chronic obstructive pulmonary disease): Status: Acute Category: Medical Code(s): J44.9 - Chronic obstructive pulmonary disease, unspecified (4) Anxiety disorder: Status: Acute Category: Medical Code(s): F41.9 - Anxiety disorder, unspecified (5) Hyperlipidemia: Status: Acute Category: Medical Code(s): E78.5 - Hyperlipidemia, unspecified (6) Hypothyroidism: Status: Acute Category: Medical Code(s): E03.9 - Hypothyroidism, unspecified (7
[2023-03-29 10:08] LABS: Lymphocytes % 17 % (10-50); Monocytes % 3 % (2-9); Neutrophils % 80 % (42-76); Platelet Estimate Normal; RBC Morphology Normal; Total Cells Counted 100
[2023-03-29 10:27] LABS: Thyroid Stimulating Hormone 1.08 uIU/mL (0.465-4.68)
[2023-03-29 14:15] VITALS: O2SAT 94
[2023-03-29 15:32] VITALS: BP 97/36; PULSE 94; RESP 20; TEMP 36.9; O2SAT 93
--- NOTE | 2023-03-29 18:34 | PC.NURSE ---
Patient refused to sit up in chair during the day. Patient finally persuaded to sit in chair to eat dinner. VS stable and patient remained on 2LNC. No other changes noted.
[2023-03-29 20:00] VITALS: BP 140/68; PULSE 79; RESP 18; TEMP 36.9; O2SAT 95
[2023-03-29 20:34] VITALS: BMI 30.6
[2023-03-30 04:00] VITALS: BP 107/48; PULSE 64; RESP 18; TEMP 36.4; O2SAT 94; BMI 30.6
[2023-03-30 06:10] VITALS: O2SAT 96
[2023-03-30 07:38] VITALS: BP 93/42; PULSE 69; RESP 18; TEMP 36.6; O2SAT 90
[2023-03-30 07:44] LABS: Basophils % 0.3 % (0.1-2.0); Eosinophils # 0.3 K/mm3 (0.0-0.4); Eosinophils % 2.6 % (0.1-12.0); Hematocrit 31.1 % (37.0-47.0); Lymphocytes # 3.1 K/mm3 (0.7-4.5); Lymphocytes % 26.5 % (10-50); Mean Corpuscular Hemoglobin 26.8 pg (27.0-31.2); Mean Corpuscular Volume 83.7 fl (81-99); Mean Platelet Volume 7.1 fl (7.4-10.4); Monocytes # 0.7 K/mm3 (0.1-1.0); Monocytes % 6.1 % (1.7-9.3); Neutrophils # 7.5 K/mm3 (1.8-7.8); Neutrophils % 64.5 % (37.0-80.0); Platelet Count 295 K/mm3 (142-424); Red Blood Count 3.72 M/mm3 (4.20-5.40); Red Cell Distribution Width 14.8 % (11.5-17.5); White Blood Count 11.7 K/mm3 (4.8-10.8)
[2023-03-30 07:51] LABS: Alanine Aminotransferase 15 U/L (12-78); Albumin/Globulin Ratio 1.1 (1.1-1.8); Alkaline Phosphatase 63 U/L (38-126); Anion Gap 12.8 mEq/L (5-15); Aspartate Amino Transferase 20 U/L (14-36); Blood Urea Nitrogen 8 mg/dl (7-17); Calcium 8.3 mg/dl (8.4-10.2); Carbon Dioxide 31 mmol/L (22.0-30.0); Chloride 99 mmol/L (98-107); Creatinine Clearance Estimated 70 mL/min (50-200); Estimated Glomerular Filt Rate 98 ml/min (>60); GFR (African American) 119 ML/MIN (>60); Globulin 2.7 g/dL (1.3-3.2); Glucose 113 mg/dl (74-100); Magnesium 1.8 mg/dl (1.6-2.3); Potassium 3.8 mmoL/L (3.5-5.1); Sodium 139 mmol/L (136-145); Total Protein,Serum 5.7 g/dl (6.3-8.2)
[2023-03-30 07:53] LABS: Bilirubin,Total 0.1 mg/dl (0.2-1.3)
--- NOTE | 2023-03-30 09:46 | EXP.DC.SUM ---
General Admission date:: 03/28/23 Discharge date: 03/30/23 HPI HPI HPI: 72-year-old female presents to the emergency department with shortness of air. Has a past medical history of anxiety hyperlipidemia, depression, tobacco dependence, hypothyroidism and COPD. Patient states while using the bathroom she became short of breath with movement between the wheelchair and her bed. This required the patient to use oxygen which she states she does not normally use. Patient was sent from [facility] to emergency department for further evaluation. Upon arrival patient was requiring 4 L of nasal cannula oxygen she was tachypneic, short of breath, tachycardia, and had a white blood cell count of 23.9. Patient was admitted for further evaluation of pneumonia and sepsis. After rounding on patient she denies chest pain, abdominal pain, Headache, or dizziness. States she is feeling better, admits to nausea but is about to eat dinner. Hospital Course Hospital Course Hospital Course: 72-year-old female who presented from her nursing facility with shortness of breath.? On arrival to the ER, found to be septic with tachycardia, tachypnea, leukocytosis, and pneumonia on chest imaging.? ER consulted medicine for admission.? Discussed patient's current symptoms, need for IV antibiotics, and lab abnormalities.? Received fluid bolus in the ER.? Medicine admitted for further inpatient management.? -Sepsis -Pneumonia -UTI -Acute on chronic hypoxemic respiratory failure -COPD Initiated on broad-spectrum IV antibiotics ( Rocephin 1g and Azithromycin 500mg) for pneumoina and UTI. Will be sent home on oral antibiotics for four more days to complete total cycle of antibiotic coverage (Cefdinir 300mg BID) Started on IV fluids in the ED and transferred to oral intake. Blood and urine cultures obtained.? Blood cultures negative, Urine culture gram positive cocci, sputum culture still pending. Cefdinir will cover the gram positive cocci found in urine and provide coverage for the pneumonia. Continue oxygen use with goal sat of 90 %. Arrived to medical floor on 4L and titrated down to 1L upon discharge. Will continue albuterol sulfate prn Q 6 hrs. -Anxiety/ Depression/ Schizophrenia Will continue home medications -Seroquel 300mg, Citalpram 40mg, and Xanax 0.25mg -Hyperlipidemia Will continue home Pravastatin 20mg -Hypothyroidism TSH satisfactory as 1.08. Will continue home levothyroxine 50mcg. -Tobacco dependence Nicotine patch if needed Encourage patient to refrain from tobacco use. -Class 1 obesity Complicates all aspects of care. Encourage healthy alternatives in diet and encourage activity throughout the day. Patient is able to ambulate to the bathroom with assistance. Stable for discharge back to [facility] to continue medical management. Continue medications per med rec. please see med rec for full details Exam Data for Last 24 hours Vital signs and Labs for Last 24 Hours: Temp Pulse Resp BP Pulse Ox FiO2 97.8 F 69 18 93/42 L 90 L 28 03/30/23 07:38 03/30/23 07:38 03/30/23 07:38 03/30/23 07:38 03/30/23 07:38 03/29/23 18:48 Laboratory Results - last 24 hr 03/29/23 07:51: TSH 1.08 03/29/23 07:51: Total Counted 100, Neutrophils % (Manual) 80 H, Lymphocytes % (Manual) 17, Monocytes % (Manual) 3, Platelet Estimate Normal, RBC Morphology Normal 03/30/23 07:15: WBC 11.7 H D, RBC 3.72 L, Hgb 10.0 L, Hct 31.1 L, MCV 83.7, MCH 26.8 L, MCHC 32.0, RDW 14.8, Plt Count 295, MPV 7.1 L, Neut % (Auto) 64.5, Lymph % (Auto) 26.5, [place] % (Auto) 6.1, Eos % (Auto) 2.6, Baso % (Auto) 0.3, Neut # (Auto) 7.5, Lymph # (Auto) 3.1, [place] # (Auto) 0.7, Eos # (Auto) 0.3, Baso # (Auto) 0.0 03/30/23 07:15: Sodium 139, Potassium 3.8, Chloride 99, Carbon Dioxide 31 H, Anion Gap 12.8, BUN 8, Creatinine 0.60, Estimated Creat Clear 70, Estimated GFR 98, Est GFR ( Amer) 119, Glucose 113 H, Calcium 8.3 L, Magnesium 1.8, Total Bilirubin 0.1 L, AST 20
== END 2023-03-30 11:47 | DRG 871 ==
LOC: ER 11:19 → 2ND 11:36
PROVIDERS: Nurse Practitioner Critical Care Medicine; Admitting Provider Internal Medicine Adolescent Medicine; Emergency Provider Student in an Organized Health Care Education/Training Program; Visit Provider Internal Medicine Adolescent Medicine
DX: A41.9 Sepsis, unspecified organism (principal); J18.9 Pneumonia, unspecified organism; J96.21 Acute and chronic respiratory failure with hypoxia; M06.9 Rheumatoid arthritis, unspecified; Z68.30 Body mass index [BMI] 30.0-30.9, adult; J43.9 Emphysema, unspecified; E03.9 Hypothyroidism, unspecified; M54.50 Low back pain, unspecified; M54.9 Dorsalgia, unspecified; I10 Essential (primary) hypertension; F25.9 Schizoaffective disorder, unspecified; E66.1 Drug-induced obesity; F17.200 Nicotine dependence, unspecified, uncomplicated; F41.9 Anxiety disorder, unspecified; Z71.6 Tobacco abuse counseling
CPT/HCPCS: 36415; 71045; 80053; 81001; 82803; 83605; 83735; 83880; 84443; 84484; 85007; 85025; 87040; 87070; 87086; 87088; 87205; 87636; 93005; 94640; 99285; C9803; J0456; J0696; J2405; U0003; U0005

== ENCOUNTER 2023-05-06 09:59 | Day surgery (SDC) | payer MEDICARE, MEDICAID, SELFPAY ==
[2023-05-01 16:26] VITALS: BMI 30.2
[2023-05-06] VITALS (7 sets, daily range): BP systolic 147–189; BP diastolic 74–83; PULSE 62–73; RESP 18–20; TEMP 36.6; O2SAT 94–100; BMI 30.2
== END 2023-05-06 12:11 | disposition home or self-care (01) ==
PROVIDERS: PCP Emergency Medicine; Visit Provider Ophthalmology
DX: H25.812 Combined forms of age-related cataract, left eye (principal)
CPT/HCPCS: 66984; V2632

== ENCOUNTER 2023-05-20 09:23 | Day surgery (SDC) | payer MEDICARE, MEDICAID, SELFPAY ==
[2023-05-20 10:19] VITALS: BP 156/80; PULSE 60; RESP 18; TEMP 36.1; O2SAT 92; BMI 30.2
[2023-05-20 11:25] VITALS: BP 178/94; PULSE 61; RESP 18; O2SAT 97
[2023-05-20 11:30] VITALS: BP 175/80; PULSE 57; RESP 18; O2SAT 100
[2023-05-20 11:35] VITALS: BP 175/84; PULSE 56; RESP 18; O2SAT 100
[2023-05-20 11:37] VITALS: BP 136/87; PULSE 72; RESP 20; TEMP 36.6; O2SAT 93
== END 2023-05-20 11:53 | disposition home or self-care (01) ==
PROVIDERS: PCP Emergency Medicine; Visit Provider Ophthalmology
DX: H25.811 Combined forms of age-related cataract, right eye (principal)
CPT/HCPCS: 66984; V2632

== ENCOUNTER 2023-08-08 05:47 | Emergency (ER) | payer MEDICARE, MEDICAID, SELFPAY ==
[2023-08-08 05:47] VITALS: BP 154/73; PULSE 122; RESP 29; TEMP 36.3; O2SAT 91; BMI 31.3
--- NOTE | 2023-08-08 05:56 | XR_ITS ---
PROCEDURE INFORMATION: Exam: XR Chest Exam date and time: 08/08/2023 6:18 AM Age: 72 years old Clinical indication: Shortness of breath; Additional info: SOA TECHNIQUE: Imaging protocol: Radiologic exam of the chest. Views: 2 views. COMPARISON: CR XR CHEST PORTABLE 03/28/2023 9:01 AM FINDINGS: Lungs: COPD, interstitial disease, and mild airspace disease. Pleural spaces: No pleural effusion. Heart/Mediastinum: Normal configuration of the heart. Bones/joints: Mild degenerative change. IMPRESSION: COPD, interstitial disease, and mild airspace disease.
--- NOTE | 2023-08-08 05:58 | HMH.EDGENADL ---
Discharge Plan Disposition Patient Disposition: Xfer [facility] Condition: Good Prescriptions Prescriptions: New levofloxacin 750 mg tablet 750 mg PO DAILY 7 Days Qty: 7 0RF prednisone 50 mg tablet 50 mg PO DAILY 7 Days Qty: 7 0RF No Action gabapentin 400 mg capsule 400 mg PO TID Qty: 90 2RF bupropion HCl [Wellbutrin SR] 150 mg tablet sustained-release 12 hr 150 mg PO BID Qty: 60 2RF Rx Instructions: 150mg daily x 5 days then 150mg twice daily metoclopramide HCl [Reglan] 5 mg tablet 5 mg PO TID Qty: 90 3RF Rx Instructions: administer 30 minutes before meals alprazolam 0.25 mg tablet 0.25 mg PO TID Qty: 90 5RF aspirin 81 mg tablet,delayed release (DR/EC) 81 mg PO DAILY Qty: 90 0RF pravastatin 20 mg tablet 20 mg PO HS Qty: 90 0RF ergocalciferol (vitamin D2) 1,250 mcg (50,000 unit) capsule 1,250 mcg PO WEEKLY Qty: 14 3RF albuterol sulfate [ProAir HFA] 90 mcg/actuation HFA aerosol inhaler 2 puff inhalation Q4HP PRN (Reason: Shortness Of Breath Or Wheezing) Qty: 8.5 0RF oxybutynin chloride 5 mg tablet 5 mg PO DAILY Qty: 90 0RF cholecalciferol (vitamin D3) 25 mcg (1,000 unit) capsule 25 mcg PO DAILY Qty: 90 0RF budesonide-formoterol 160-4.5 mcg/actuation HFA aerosol inhaler 2 inh inhalation BID Qty: 10.2 3RF albuterol sulfate 2.5 mg /3 mL (0.083 %) solution for nebulization 2.5 mg inhalation Q6HP PRN (Reason: Shortness Of Breath) artificial tears solution Drops 1 drp OPHTHALMIC (EYE) TID melatonin 3 mg Tablet 3 mg PO HS diclofenac sodium 1 % gel 1 ea TOPICAL BID citalopram 40 mg tablet 40 mg PO DAILY quetiapine 100 mg tablet 300 mg PO HS levothyroxine 50 mcg tablet 50 mcg PO DAILY pantoprazole 40 MG tablet,delayed release (DR/EC) 40 mg PO DAILY guaifenesin 100 mg/5 mL Liquid 200 mg PO Q6HP PRN (Reason: COUGH/CONGESTION) Qty: 0 0RF acetaminophen 500 mg Tablet 500 mg PO Q4HP PRN (Reason: Pain) Referrals Follow up/Referrals: Provider,Referral, MD [Primary Care Provider] - See instructions Activity Restrictions/Add. Instructions Additional Instructions/Restrictions: Please picker/puller your prescriptions and administer the full course as prescribed. Follow-up with your primary care provider over the next 2 days. Continue using your 3 L nasal cannula at home. Return to the emergency department for new or worsening symptoms. Clinical Impressions Clinical Impression: Chronic obstructive pulmonary disease with acute exacerbation, Cough, Acute dyspnea Instructions Patient Instructions: DI for Chronic Obstructive Pulmonary Disease, DI for Shortness of Breath Discharge ED Provider: Sania Brice General Adult HPI <Epi Linares DO - Last Filed: 08/08/23 07:08> General Chief complaint: Shortness of Breath/Dyspnea Stated complaint: SOA Time Seen by Provider: 08/08/23 05:50 Mode of Arrival: EMS Source of Information: Patient Limitations: No Limitations History of Present Illness HPI narrative: 72-year-old female with past medical history significant for COPD on 3 L oxygen at baseline, hypothyroidism, diverticulosis, HTN, GERD, FAYE, HLD, presents today from correction via EMS for evaluation concerning shortness of breath. Report was given the patient was hypoxic on room air in the low 80s. Patient was given initial DuoNeb treatment at nursing facility and was also placed on oxygen however remained hypoxic in the 80s. EMS gave patient another breathing treatment in route to ED and she has since been satting in the low 90s. Patient states that she has had a productive cough over the past several days with green sputum. Denies having any fevers, chills, chest pain, nausea, vomiting, abdominal pain, dysuria, hematuria or any other associated symptoms at this time. Related Data Home Medications Medication Instructions Recorded Confirmed acetaminophen 500 mg tablet 500 m
[2023-08-08 06:03] LABS: Basophils # 0.1 K/mm3 (0-0.2); Basophils % 0.3 % (0.1-2.0); Eosinophils # 0.4 K/mm3 (0.0-0.4); Eosinophils % 1.7 % (0.1-12.0); Hematocrit 41.4 % (37.0-47.0); Hemoglobin 12.8 g/dL (12.2-16.2); Lymphocytes % 4.4 % (10-50); Mean Corpuscular HGB Conc 30.9 g/dL (31.8-35.4); Mean Corpuscular Hemoglobin 25.9 pg (27.0-31.2); Mean Corpuscular Volume 83.7 fl (81-99); Mean Platelet Volume 7.7 fl (7.4-10.4); Monocytes # 0.5 K/mm3 (0.1-1.0); Monocytes % 2.2 % (1.7-9.3); Neutrophils # 19.8 K/mm3 (1.8-7.8); Neutrophils % 91.3 % (37.0-80.0); Platelet Count 404 K/mm3 (142-424); Red Blood Count 4.94 M/mm3 (4.20-5.40); Red Cell Distribution Width 16.1 % (11.5-17.5); White Blood Count 21.7 K/mm3 (4.8-10.8)
[2023-08-08 06:04] LABS: MANUAL DIFFERENTIAL MANUAL DIFFERENTIAL (MANUAL DIFF)
[2023-08-08 06:08] LABS: Alanine Aminotransferase 23 U/L (12-78); Albumin Level 4.2 g/dl (3.5-5.0); Albumin/Globulin Ratio 1.4 (1.1-1.8); Alkaline Phosphatase 54 U/L (38-126); Anion Gap 10.4 mEq/L (5-15); Aspartate Amino Transferase 30 U/L (14-36); Bilirubin,Total 0.3 mg/dl (0.2-1.3); Blood Urea Nitrogen 11 mg/dl (7-17); Calcium 9.2 mg/dl (8.4-10.2); Carbon Dioxide 31 mmol/L (22.0-30.0); Chloride 101 mmol/L (98-107); Creatinine Clearance Estimated 72 mL/min (50-200); Estimated Glomerular Filt Rate 98 ml/min (>60); GFR (African American) 119 ML/MIN (>60); Glucose 92 mg/dl (74-100); Potassium 4.4 mmoL/L (3.5-5.1); Sodium 138 mmol/L (136-145); Total Protein,Serum 7.2 g/dl (6.3-8.2)
[2023-08-08 06:12] LABS: Anisocytosis 1+; Eosinophils % 1 % (0-3); Hypochromasia 1+; Lymphocytes % 2 % (10-50); Microcytosis 1+; Monocytes % 1 % (2-9); Neutrophils % 91 % (42-76); Platelet Estimate Normal; RBC Morphology Normal; Total Cells Counted 100
[2023-08-08 06:21] VITALS: PULSE 110; PULSE 112; O2SAT 93
[2023-08-08 06:21] LABS: Troponin I < 0.01 ng/ml (0.00-0.034)
--- NOTE | 2023-08-08 06:21 | ECG_ITS ---
APPROVED REPORT Exam: Resting ECG HR:111 bpm ECG Measurements Heart Rate 111 AXES AL 155 P 44 QRSd 86 QRS 74 QT 316 T 47 QTc 382 Conclusion SINUS TACHYCARDIA NONSPECIFIC ST & T-WAVE ABNORMALITY ABNORMAL RHYTHM ECG UNCONFIRMED REPORT Electronically signed by : Janes Delgado MD 08/08/2023 12:07:07
[2023-08-08 06:30] LABS: VBG Base Excess 1.8 mmol/L (-2.4-2.3); VBG HCO3 27.8 mmol/L (23-30); VBG Oxygen Saturation 69.2 % (50-70); VBG PH 7.33 mmol/L (7.31-7.41); VBG PO2 39.4 mmol/L (28-40); VBG Total CO2 29.5 mmol/L (23-27)
--- NOTE | 2023-08-08 06:32 | PC.NURSE ---
Pt in/out cath, Tiara GOULD at bedside to assist
[2023-08-08 06:36] LABS: VBG PCO2 54.2 mmol/L (35-51)
--- NOTE | 2023-08-08 06:38 | PC.NURSE ---
notified md of critical PCO2 54.2
[2023-08-08 06:40] LABS: Microscopic, Urine URINE MICROSCOPIC (MICROSCOPIC)
[2023-08-08 06:42] LABS: Appearance,Urine SL CLOUDY (Clear); Bilirubin,Urine Negative (Negative); Blood, Urine Negative (Negative); Color,Urine YELLOW (Yellow); Glucose,Urine (UA) Negative (Negative); Ketones,Urine Negative (Negative); Leukocyte Esterase,Urine Negative (Negative); Nitrate,Urine Negative (Negative); Protein,Urine Negative (Negative); Urobilinogen,Urine 0.2 EU/dl (0.2)
[2023-08-08 06:48] LABS: NT Pro Brain Natriuretic Pep. 46.7 pg/mL (0-125)
[2023-08-08 06:52] LABS: Magnesium 1.5 mg/dl (1.6-2.3)
[2023-08-08 06:58] LABS: Coronavirus 19, PCR Not Detected (NotDetected); Influenza A, PCR Not Detected (NotDetected); Influenza B, PCR Not Detected (NotDetected)
[2023-08-08 07:00] VITALS: BP 130/67; PULSE 105; RESP 19; O2SAT 91
[2023-08-08 07:01] LABS: Lactic Acid 1.6 mmol/L (0.7-2.1)
[2023-08-08 07:03] LABS: Bacteria,Urine 3+ /lpf; Squamous Epithelial Cell,Urine Occasional #/hpf (0-5)
[2023-08-08 07:30] VITALS: BP 153/72; PULSE 106; RESP 27; O2SAT 94
--- NOTE | 2023-08-08 07:30 | PC.NURSE ---
pt readjusted in bed
--- NOTE | 2023-08-08 07:56 | PC.NURSE ---
Report called to Ghislaine at [facility].
[2023-08-08 08:00] VITALS: BP 146/63; PULSE 85; RESP 21; O2SAT 94
--- NOTE | 2023-08-08 08:25 | PC.NURSE ---
[facility] notified of transfer back to care home.
[2023-08-08 08:26] VITALS: BP 146/63; PULSE 85; RESP 21; TEMP 36.6; O2SAT 94
== END 2023-08-08 08:38 ==
PROVIDERS: Emergency Medicine; Emergency Provider Emergency Medicine
DX: J44.1 Chronic obstructive pulmonary disease with (acute) exacerbation (principal); E03.9 Hypothyroidism, unspecified; R09.02 Hypoxemia; I10 Essential (primary) hypertension; K21.9 Gastro-esophageal reflux disease without esophagitis; F41.1 Generalized anxiety disorder; E78.5 Hyperlipidemia, unspecified; F32.A Depression, unspecified; R06.02 Shortness of breath
CPT/HCPCS: 71046; 80053; 81001; 82803; 83605; 83735; 83880; 84484; 85007; 85025; 87040; 87086; 87636; 93005; 96374; 99285

== ENCOUNTER 2023-09-09 12:33 | Day surgery (SDC) | payer MEDICARE, MEDICAID, SELFPAY ==
[2023-09-09] VITALS (7 sets, daily range): BP systolic 134–167; BP diastolic 71–90; PULSE 72–78; RESP 18; TEMP 36.2–36.4; O2SAT 92–99; BMI 29.7
--- NOTE | 2023-09-09 13:12 | HMH.SCOPE ---
Procedure: Date: 09/09/23 Patient Date of :: 1950 Procedure Performed:: Esophagogastroduodenoscopy with biopsy Indications:: Dysphagia Nausea and intermittent emesis Epigastric discomfort Performing Provider:: Marquise Jarvis MD Referring Provider:: . Sedation:: Monitored anesthesia care Procedure:: After informed consent was obtained the patient was taken to the endoscopy suite. Sedation ensued after the patient was transferred to the left lateral decubitus position. Pulse, blood pressure, and oxygen saturation were monitored throughout the procedure. The endoscope was advanced beyond the duodenal bulb. Retroflexion within the gastric lumen was accomplished. The gastroscope was carefully removed and the patient was transferred to recovery in stable condition. Please see findings and specimens below for detail. Findings:: Somewhat patulous esophagus Sliding hiatal hernia Mild to moderate patchy gastritis Small to moderate amount of bilious reflux Specimens:: Antral biopsy Recommendations:: Follow-up pathology Continue proton pump inhibition Consider barium swallow Consider UGI/SBFT Consider gastric emptying scan Complications:: No immediate Estimated blood obtained (mL): 1 Colonoscopy Component Colonoscopy Component Was a colonoscopy performed during today's procedure?: No
--- NOTE | 2023-09-09 14:03 | P.PNANES_ITS ---
[facility] Disclaimer: The information contained in this section may have been updated after the patient was seen, as this information can be updated by other users. Medical History Abdominal pain Acquired hypothyroidism Acute bronchitis Acute exacerbation of chronic obstructive airways disease Arthritis Aspiration pneumonia Atherosclerotic cardiovascular disease Breast nodule Cholelithiasis Chronic low back pain Closed head injury Colon, diverticulosis Community acquired bacterial pneumonia Community acquired pneumonia COPD exacerbation COPD with acute exacerbation Cough Decreased mobility Depression Diverticulosis Dysphagia E. coli UTI (urinary tract infection) Emphysema/COPD Emphysematous cystitis Esophageal diverticulum Essential hypertension Fall Generalized anxiety disorder GERD (gastroesophageal reflux disease) Gram-negative infection History of cystitis History of dysuria History of falling Hx MRSA infection Hyperlipidemia Hypertension Hypokalemia Hypothyroid Intervertebral disc disorder Low back pain radiating to both legs Lumbar radiculopathy Lung nodule Lung nodule seen on imaging study Migraine Nicotine dependence Obesity (BMI 30-39.9) Pneumonia Pseudomonas urinary tract infection Respiratory failure with hypoxia and hypercapnia Rheumatoid arthritis RLL pneumonia Schizoaffective disorder Sepsis Sepsis with acute organ dysfunction SIRS (systemic inflammatory response syndrome) Staphylococcus aureus pneumonia Tobacco dependence Toe pain, left Urinary incontinence UTI (urinary tract infection) Surgical History H/O: hysterectomy Family History (Updated 09/09/23 @ 13:02 by Colt Aguirre RN) Other Family history of cancer Social History (Updated 09/09/23 @ 13:03 by Colt Aguirre RN) Smoking Status: Former smoker tobacco type: cigarettes packs per day: 1 second hand exposure: Yes alcohol intake: former substance use type: denies use current occupational status: retired Travel in the last 8 weeks: None household members: family housing: fpc diet: low salt caffeine: Yes [facility] Anesthesia Checklist Patient Identification Patient Identification: Arm Band and Other: Structural Data Admitted From: Long-term Nursing Facility Planned Operative Procedure/s: egd Consent for Planned Operative Procedure(s) Verified: Yes Verified Documents: Surgical Consent and History and Physical NPO Status Verified Time NPO: 00:00 Additional verifications Patient : No Anesthesia Reactions: No Hx Blood Transfusions: No Cephalosporin Allergy: No Previous Colonoscopy: Yes Airway Assessment Mallampati Score:: Class II C-Spine Mobility Assessed: Yes TMJ Mobility Assessed: Yes Dentition: Edentulous Neurological Assessment Level of Consciousness: Awake, Alert, Appropriate and Follows Commands Hx Seizures: No Numbness or tingling in extremities: No Anesthesia Plan Anesthesia Risk discussed: Yes ASA Class: II Anesthesia Type: MAC Preoperative Comments Pre-Operative Comments: COPD. Schizophrenia. Dysphagia. Reflux. Gastritis.
== END 2023-09-09 14:16 | disposition home or self-care (01) ==
PROVIDERS: Visit Provider Surgery
PROC: 0DJ08ZZ Inspection of Upper Intestinal Tract, Via Natural or Artificial Opening Endoscopic (ICD-10-PCS; CPT 43235; principal; 2023-09-09 13:30)
DX: R13.10 Dysphagia, unspecified (principal); K29.50 Unspecified chronic gastritis without bleeding; K44.9 Diaphragmatic hernia without obstruction or gangrene
CPT/HCPCS: 43239; 88305

== ENCOUNTER → 2023-09-26 07:52 | Outpatient (CLI) | payer MEDICARE, MEDICAID, SELFPAY ==
--- NOTE | 2023-09-26 07:52 | FL_ITS ---
FINAL REPORT CLINICAL HISTORY: dysphagia fluoro time 1.43 DAP 3720.11 FINDINGS: SMALL BOWEL FOLLOW THROUGH HISTORY: Feels like food getting stuck in throat, vomiting. PROCEDURE: The patient ingested barium. Spot and overhead films were obtained. A total of 28 images were saved. FINDINGS: Examination is slightly limited due to the patient's condition. The cabinet worker film is unremarkable . The transit time to the colon is normal . Contrast reaches the colon in 2 hours. The mucosal fold pattern is normal . Terminal ileum is not well visualized due to overlapping bowel, but is grossly unremarkable. Radiation exposure in Reference air Kerma: 3720.11 mGy Fluoroscopy time: 1 minute, 43 seconds Total images: 28 IMPRESSION: Normal limited small bowel follow-through . Reviewed, Interpreted and Dictated by Binh Taylor MD Transcribed by Cherie Daly PA-C Authenticated and [facility]
--- NOTE | 2023-09-26 07:52 | FL_ITS ---
FINAL REPORT CLINICAL HISTORY: dysphagia fluoro time 2.06 DAP 1671.67 FINDINGS: UPPER GI SERIES, single contrast HISTORY: Feels like food getting stuck, vomiting. PROCEDURE: Patient ingested thick and thin barium contrast. Spot films were performed. A total of 43 images were saved. FINDINGS: Examination is limited due to the patient's condition. There is a moderate sized Zenker's diverticulum. There is mild esophageal dysmotility. There is a small sliding-type hiatal hernia. No gastric filling defects are seen. The duodenal bulb and sweep appear unremarkable. No episodes of gastroesophageal reflux observed. 13 mm Barium tablet is delayed in the distal esophagus, but does pass during the exam. Radiation exposure in Reference air Kerma: 1671.67 mGy Fluoroscopy time: 2 minutes 6 seconds Total images: 43 IMPRESSION: Probable moderate size Zenker's diverticulum. Esophageal dysmotility. Small sliding-type hiatal hernia. Barium tablet is delayed in the distal esophagus, but does pass during the exam. Consider correlation with upper endoscopy. Reviewed, Interpreted and Dictated by Binh Taylor MD Transcribed by Cherie Daly PA-C Authenticated and [facility]
== END ==
PROVIDERS: PCP Emergency Medicine; Visit Provider Surgery
DX: R13.10 Dysphagia, unspecified (principal); R11.0 Nausea
CPT/HCPCS: 74220; 74246; 74248

== ENCOUNTER → 2023-09-29 09:50 | Outpatient (CLI) | payer MEDICARE, MEDICAID, SELFPAY ==
--- NOTE | 2023-09-29 09:51 | NM_ITS ---
FINAL REPORT TECHNIQUE: Sequential anterior images were obtained after the ingestion of eggs radiolabeled with mCi technetium 99M sulfur colloid. CLINICAL HISTORY: nausea, COUGHING WHEN LYING FLAT AND CHOKING COMPARISON: None FINDINGS: GASTRIC EMPTYING SCAN Static images show normal emptying of the stomach into the small bowel. Based on the time activity curve, the estimated half-emptying time is abnormally prolonged at 129 minutes. IMPRESSION: Abnormal prolonged gastric emptying time. Reviewed, Interpreted and Dictated by Luis Billingsley III, MD Transcribed by Yancy Weeks Authenticated and [facility]
== END ==
PROVIDERS: PCP Emergency Medicine; Visit Provider Surgery
DX: R11.0 Nausea (principal)
CPT/HCPCS: 78264; A9541

== ENCOUNTER 2023-10-13 22:45 | Inpatient (IN) | payer MEDICARE, MEDICAID, SELFPAY ==
[2023-10-13 22:45] VITALS: BP 154/65; PULSE 74; RESP 18; TEMP 36.5; O2SAT 91; BMI 28.1
--- NOTE | 2023-10-13 23:05 | XR_ITS ---
PROCEDURE INFORMATION: Exam: XR Right Shoulder Exam date and time: 10/13/2023 11:21 PM Age: 72 years old Clinical indication: Injury or trauma; Fall; Blunt trauma (contusions or hematomas); Shoulder; Right TECHNIQUE: Imaging protocol: Radiologic exam of the right shoulder. Views: 2 or more views. COMPARISON: CR XR CHEST PORTABLE 10/13/2023 11:21 PM FINDINGS: Bones/joints: No acute fracture or dislocation. Soft tissues: Normal. IMPRESSION: No acute fracture or dislocation.
--- NOTE | 2023-10-13 23:05 | XR_ITS ---
PROCEDURE INFORMATION: Exam: XR Right Femur Exam date and time: 10/13/2023 11:21 PM Age: 72 years old Clinical indication: Injury or trauma; Fall; Blunt trauma; Hip; Right TECHNIQUE: Imaging protocol: Radiologic exam of the right femur. Views: 2 views. COMPARISON: 1. CR XR PELVIS 1-2V 10/13/2023 11:[address] ANGIO ABDOMEN PELVIS 06/19/2022 6:33 PM FINDINGS: Limitations: Evaluation limited by patient body habitus. Bones/joints: Right hip joint suboptimally seen, but suggestion of a possible subcapital femoral neck fracture. Right femur is otherwise intact. Soft tissues: Unremarkable. IMPRESSION: Right hip joint suboptimally seen, but suggestion of a possible subcapital femoral neck fracture. Consider further evaluation with CT.
--- NOTE | 2023-10-13 23:05 | XR_ITS ---
PROCEDURE INFORMATION: Exam: XR Pelvis Exam date and time: 10/13/2023 11:21 PM Age: 72 years old Clinical indication: Injury or trauma; Fall; Blunt trauma (contusions or hematomas); Right; Hip TECHNIQUE: Imaging protocol: Radiologic exam of the pelvis. Views: 1 or 2 view. COMPARISON: 1. CT ANGIO ABDOMEN PELVIS 06/19/2022 6:33 PM 2. CR XR FEMUR RT 2V 10/13/2023 11:21 PM FINDINGS: Bones/joints: Suggestion of acute subcapital right femoral neck fracture. Bony pelvis otherwise appears grossly intact. Soft tissues: Unremarkable. Gastrointestinal tract: Hyperdense material seen within the descending colon and sigmoid colon, suggestive of retained oral contrast. IMPRESSION: Suggestion of acute subcapital right femoral neck fracture. Consider further evaluation with CT, if clinically indicated.
--- NOTE | 2023-10-13 23:05 | XR_ITS ---
PROCEDURE INFORMATION: Exam: XR Chest Exam date and time: 10/13/2023 11:21 PM Age: 72 years old Clinical indication: Injury or trauma; Fall; Blunt trauma (contusions or hematomas) TECHNIQUE: Imaging protocol: Radiologic exam of the chest. Views: 1 view. COMPARISON: CR XR CHEST 2V 08/08/2023 6:18 AM FINDINGS: Limitations: Evaluation limited by patient body habitus. Lungs: No consolidation, mass, or pulmonary edema. Pleural spaces: No pneumothorax or obvious pleural effusion. Heart/Mediastinum: Cardiomediastinal silhouette is stable, with no cardiomegaly. Bones/joints: No acute osseous abnormality. IMPRESSION: No acute findings.
--- NOTE | 2023-10-13 23:05 | XR_ITS ---
PROCEDURE INFORMATION: Exam: XR Right Knee Exam date and time: 10/13/2023 11:21 PM Age: 72 years old Clinical indication: Injury or trauma; Fall; Blunt trauma; Knee; Right TECHNIQUE: Imaging protocol: Radiologic exam of the right knee. Views: 3 views. COMPARISON: CR XR FEMUR RT 2V 10/13/2023 11:21 PM FINDINGS: Bones/joints: No acute fracture or dislocation. No joint effusion. Soft tissues: Normal. IMPRESSION: No acute findings.
--- NOTE | 2023-10-13 23:06 | CT_ITS ---
PROCEDURE INFORMATION: Exam: CT Cervical Spine Without Contrast Exam date and time: 10/13/2023 11:20 PM Age: 72 years old Clinical indication: Injury or trauma; Fall TECHNIQUE: Imaging protocol: Computed tomography of the cervical spine without contrast. Radiation optimization: All CT scans at this facility use at least one of these dose optimization techniques: automated exposure control; mA and/or kV adjustment per patient size (includes targeted exams where dose is matched to clinical indication); or iterative reconstruction. REPORTING DATA: Count of CT and Cardiac NM exams in prior 12 months: This patient has received [address] and 0 known cardiac nuclear medicine studies in the 12 months prior to the current study. COMPARISON: CT CERVICAL SPINE WO CON 06/19/2022 6:23 PM FINDINGS: Bones/joints: No acute fracture. Normal alignment. No significant disc bulge or herniation. No severe spinal canal stenosis. No significant neural foraminal narrowing. Lungs: Lung apices are normal. Soft tissues: Unremarkable. IMPRESSION: No evidence for significant traumatic injury of the cervical spine.
--- NOTE | 2023-10-13 23:06 | CT_ITS ---
PROCEDURE INFORMATION: Exam: CT Head Without Contrast Exam date and time: 10/13/2023 11:20 PM Age: 72 years old Clinical indication: Injury or trauma; Fall TECHNIQUE: Imaging protocol: Computed tomography of the head without contrast. Radiation optimization: All CT scans at this facility use at least one of these dose optimization techniques: automated exposure control; mA and/or kV adjustment per patient size (includes targeted exams where dose is matched to clinical indication); or iterative reconstruction. REPORTING DATA: Count of CT and Cardiac NM exams in prior 12 months: This patient has received [address] and 0 known cardiac nuclear medicine studies in the 12 months prior to the current study. COMPARISON: CT HEAD/BRAIN WO CON 06/19/2022 6:23 PM FINDINGS: Brain: Normal. No hemorrhage. Age appropriate white matter. No mass effect. No focal mass. The carlson-white matter junction is intact. Cerebral ventricles: No ventriculomegaly. Paranasal sinuses: Visualized sinuses are unremarkable. No fluid levels. Mastoid air cells: Visualized mastoid air cells are well aerated. Bones/joints: Unremarkable. No acute fracture. Soft tissues: Unremarkable. IMPRESSION: Normal examination of brain. There is no acute intracranial abnormality. There is no structural abnormality.
[2023-10-13 23:20] LABS: Basophils # 0.1 K/mm3 (0-0.2); Basophils % 0.4 % (0.1-2.0); Chloride 101 mmol/L (98-107); Eosinophils # 0.3 K/mm3 (0.0-0.4); Eosinophils % 2.1 % (0.1-12.0); Hematocrit 37.5 % (37.0-47.0); Hemoglobin 11.9 g/dL (12.2-16.2); Lymphocytes # 2.5 K/mm3 (0.7-4.5); Lymphocytes % 20.7 % (10-50); Mean Corpuscular HGB Conc 31.8 g/dL (31.8-35.4); Mean Corpuscular Hemoglobin 27.4 pg (27.0-31.2); Mean Corpuscular Volume 86.1 fl (81-99); Mean Platelet Volume 7.5 fl (7.4-10.4); Monocytes # 0.8 K/mm3 (0.1-1.0); Neutrophils # 8.4 K/mm3 (1.8-7.8); Neutrophils % 69.8 % (37.0-80.0); Platelet Count 285 K/mm3 (142-424); Red Blood Count 4.35 M/mm3 (4.20-5.40); Red Cell Distribution Width 16.2 % (11.5-17.5)
[2023-10-13 23:21] LABS: Potassium 3.7 mmoL/L (3.5-5.1); Sodium 136 mmol/L (136-145)
[2023-10-13 23:23] LABS: Alanine Aminotransferase 20 U/L (12-78); Aspartate Amino Transferase 30 U/L (14-36); Blood Urea Nitrogen 12 mg/dl (7-17); Creatinine Clearance Estimated 65 mL/min (50-200); Estimated Glomerular Filt Rate 82 ml/min (>60); GFR (African American) 99 ML/MIN (>60)
[2023-10-13 23:24] LABS: Albumin Level 4.1 g/dl (3.5-5.0); Albumin/Globulin Ratio 1.5 (1.1-1.8); Alkaline Phosphatase 67 U/L (38-126); Anion Gap 8.7 mEq/L (5-15); Bilirubin,Total 0.4 mg/dl (0.2-1.3); Calcium 8.8 mg/dl (8.4-10.2); Carbon Dioxide 30 mmol/L (22.0-30.0); Globulin 2.8 g/dL (1.3-3.2); Glucose 120 mg/dl (74-100); Total Protein,Serum 6.9 g/dl (6.3-8.2)
[2023-10-13 23:54] VITALS: PULSE 75
[2023-10-14] VITALS (10 sets, daily range): BP systolic 132–197; BP diastolic 61–80; PULSE 69–86; RESP 17–20; TEMP 36.5–37.6; O2SAT 90–100; BMI 28.2
--- NOTE | 2023-10-14 00:01 | HMH.EDGENADL ---
Discharge Plan Disposition Patient Disposition: Admitted Condition: Fair Clinical Impressions Clinical Impression: Femur fracture, right Discharge ED Provider: Maik Morrow General Adult HPI General Chief complaint: Fall Stated complaint: fall Time Seen by Provider: 10/13/23 22:57 Mode of Arrival: EMS Source of Information: Patient Limitations: No Limitations Description of Symptoms (Recalled from ER Triage Doc. by RN): Presents to ED with c/o head and right hip and shoulder pain post fall at [facility]. Patient states she was sitting in her chair and was standing up to go to the bathroom; patient reports she is not ambulatory and travels via wheelchair. -LOC Denies blood thinner History of Present Illness HPI narrative: Patient has a PMHx significant for COPD on 2-3L NC at baseline, obesity, HTN, HLD, anxiety, depression, schizophrenia who presents to the ED with complaints of fall. Presents to ED with c/o head and right hip and shoulder pain post fall at [facility]. Patient states she was sitting in her chair and was standing up to go to the bathroom; patient reports she is not ambulatory and travels via wheelchair. Patient had head trauma, but -LOC. Denies blood thinner Related Data Home Medications Medication Instructions Recorded Confirmed acetaminophen 500 mg tablet 500 mg PO Q4HP PRN Pain 12/20/22 10/01/23 albuterol sulfate 2.5 mg/3 mL 2.5 mg inhalation Q6HP PRN 03/28/23 10/01/23 (0.083 %) solution for nebulization Shortness Of Breath artificial tears solution eye drops 1 drp ophthalmic (eye) TID DRY EYES 03/28/23 10/01/23 citalopram 40 mg tablet 40 mg PO DAILY MOOD 03/28/23 10/01/23 diclofenac sodium 1 % topical gel 1 ea topical BID SHOULDER PAIN 03/28/23 10/01/23 levothyroxine 50 mcg tablet 50 mcg PO DAILY thyroid 03/28/23 10/01/23 melatonin 3 mg tablet 3 mg PO HS SLEEP 03/28/23 10/01/23 pantoprazole 40 mg tablet,delayed 40 mg PO DAILY Acid reflux 03/28/23 10/01/23 release quetiapine 100 mg tablet 300 mg PO HS MOOD 03/28/23 10/01/23 buspirone 5 mg tablet 5 mg PO TID 09/08/23 10/01/23 cetirizine 10 mg tablet 10 mg PO DAILY 09/08/23 10/01/23 Previous Rx's Medication Instructions Recorded albuterol sulfate 90 mcg/actuation 2 puff inhalation Q4HP PRN 10/15/22 aerosol inhaler (ProAir HFA) Shortness Of Breath Or Wheezing #8.5 grams aspirin 81 mg tablet,delayed 81 mg PO DAILY Heart disease #90 10/15/22 release tabs budesonide-formoterol HFA 160 2 inh inhalation BID Breathing 10/15/22 mcg-4.5 mcg/actuation aerosol problems #10.2 grams inhaler cholecalciferol (vitamin D3) 25 25 mcg PO DAILY Supplement #90 caps 10/15/22 mcg (1,000 unit) capsule ergocalciferol (vitamin D2) 1,250 1,250 mcg PO WEEKLY Supplement #14 10/15/22 mcg (50,000 unit) capsule caps oxybutynin chloride 5 mg tablet 5 mg PO DAILY overactive bladder 10/15/22 #90 tabs pravastatin 20 mg tablet 20 mg PO HS Cholesterol #90 tabs 10/15/22 guaifenesin 100 mg/5 mL oral liquid 200 mg (10 mL) PO Q6HP PRN 03/30/23 COUGH/CONGESTION #0 mL bupropion HCl 150 mg tablet,12 hr 150 mg PO BID #60 ea 05/29/23 sustained-release (Wellbutrin SR) metoclopramide HCl 5 mg tablet 5 mg PO TID #90 tabs 07/10/23 (Reglan) alprazolam 0.25 mg tablet 0.25 mg PO TID Anxiety #90 tabs 08/02/23 levofloxacin 750 mg tablet 750 mg PO DAILY 7 days #7 tabs 08/08/23 prednisone 50 mg tablet 50 mg PO DAILY 7 days #7 tabs 08/08/23 gabapentin 400 mg capsule 400 mg PO TID Pain #90 caps 09/30/23 Allergies Allergy/AdvReac Type Severity Reaction Status Date / Time metronidazole Allergy Unknown I-HIVES Verified 10/01/23 14:23 nitrofurantoin Allergy Unknown Unknown Verified 10/01/23 14:23 [From MACROBID] allergy reaction PFSH [facility] Disclaimer: The information contained in this section may have been updated after the patient was seen, as this information can be updated by other users. Medical History (Reviewed 10/01/23 @ 14:2
--- NOTE | 2023-10-14 00:23 | EXP.HP ---
History of Present Illness *Admission Date: 10/14/23 *Reason for visit:: fall with RT femur Fx *History of present illness: This is 72 yo F [facility] resident with an extensive PMHx, significant, but not limited to COPD on 2-3L NC at baseline, obesity, HTN, HLD, anxiety, depression, schizophrenia who was brought in to ED for evaluation after fall at their facility. Patient c/o head and right hip and shoulder pain post fall. Patient stated she was sitting in her chair and was standing up to go to the bathroom; patient reports she is not ambulatory and travels via wheelchair. Patient had head trauma, but does not reported LOC. Denied blood thinner. Admitted for treatment and management. [facility] Disclaimer: The information contained in this section may have been updated after the patient was seen, as this information can be updated by other users. Medical History Abdominal pain Acquired hypothyroidism Acute bronchitis Acute exacerbation of chronic obstructive airways disease Arthritis Aspiration pneumonia Atherosclerotic cardiovascular disease Breast nodule Cholelithiasis Chronic low back pain Closed head injury Colon, diverticulosis Community acquired bacterial pneumonia Community acquired pneumonia COPD exacerbation COPD with acute exacerbation Cough Decreased mobility Depression Diverticulosis Dysphagia E. coli UTI (urinary tract infection) Emphysema/COPD Emphysematous cystitis Esophageal diverticulum Essential hypertension Fall Generalized anxiety disorder GERD (gastroesophageal reflux disease) Gram-negative infection History of cystitis History of dysuria History of falling Hx MRSA infection Hyperlipidemia Hypertension Hypokalemia Hypothyroid Intervertebral disc disorder Low back pain radiating to both legs Lumbar radiculopathy Lung nodule Lung nodule seen on imaging study Migraine Nicotine dependence Obesity (BMI 30-39.9) Pneumonia Pseudomonas urinary tract infection Respiratory failure with hypoxia and hypercapnia Rheumatoid arthritis RLL pneumonia Schizoaffective disorder Sepsis Sepsis with acute organ dysfunction SIRS (systemic inflammatory response syndrome) Staphylococcus aureus pneumonia Tobacco dependence Toe pain, left Urinary incontinence UTI (urinary tract infection) Surgical History H/O: hysterectomy Family History Other Family history of cancer Social History Smoking Status: Never smoker second hand exposure: Yes alcohol intake: former substance use type: denies use current occupational status: retired Travel in the last 8 weeks: None household members: family housing: halfway diet: low salt caffeine: Yes Review of Systems Review of Systems Review of systems:: pertinent systems reviewed and negative unless documented below Meds Home Medications and Allergies Home Medications Medication Instructions Recorded Confirmed Type albuterol sulfate 90 mcg/actuation 2 puff inhalation Q4HP PRN 10/15/22 10/14/23 Rx aerosol inhaler (ProAir HFA) Shortness Of Breath Or Wheezing #8.5 grams aspirin 81 mg tablet,delayed 81 mg PO DAILY Heart disease #90 10/15/22 10/14/23 Rx release tabs budesonide-formoterol HFA 160 2 inh inhalation BID Breathing 10/15/22 10/14/23 Rx mcg-4.5 mcg/actuation aerosol problems #10.2 grams inhaler cholecalciferol (vitamin D3) 25 25 mcg PO DAILY Supplement #90 caps 10/15/22 10/14/23 Rx mcg (1,000 unit) capsule pravastatin 20 mg tablet 20 mg PO HS Cholesterol #90 tabs 10/15/22 10/14/23 Rx acetaminophen 500 mg tablet 500 mg PO TID Pain 12/20/22 10/14/23 History citalopram 40 mg tablet 30 mg PO DAILY MOOD 03/28/23 10/14/23 History levothyroxine 50 mcg tablet 5
--- NOTE | 2023-10-14 00:25 | PC.NURSE ---
Rounded on patient; call light within reach
--- NOTE | 2023-10-14 00:55 | PC.NURSE ---
pt arrived to floor via stretcher @ [phone]
[2023-10-14 06:55] LABS: Basophils % 0.1 % (0.1-2.0); Eosinophils # 0.2 K/mm3 (0.0-0.4); Eosinophils % 1.5 % (0.1-12.0); Hematocrit 35.1 % (37.0-47.0); Hemoglobin 11.3 g/dL (12.2-16.2); Lymphocytes # 1.8 K/mm3 (0.7-4.5); Lymphocytes % 13.4 % (10-50); Mean Corpuscular HGB Conc 32.2 g/dL (31.8-35.4); Mean Corpuscular Hemoglobin 27.6 pg (27.0-31.2); Mean Corpuscular Volume 85.6 fl (81-99); Mean Platelet Volume 7.6 fl (7.4-10.4); Monocytes % 7.1 % (1.7-9.3); Neutrophils # 10.5 K/mm3 (1.8-7.8); Neutrophils % 77.8 % (37.0-80.0); Platelet Count 278 K/mm3 (142-424); Red Cell Distribution Width 16.1 % (11.5-17.5); White Blood Count 13.5 K/mm3 (4.8-10.8)
[2023-10-14 06:57] LABS: Chloride 102 mmol/L (98-107); Potassium 3.8 mmoL/L (3.5-5.1); Sodium 138 mmol/L (136-145)
[2023-10-14 06:59] LABS: INR 0.96 (0.9-1.1); Prothrombin Time 10.4 seconds (10.1-12.5)
[2023-10-14 07:00] LABS: Alanine Aminotransferase 20 U/L (12-78); Albumin Level 3.8 g/dl (3.5-5.0); Albumin/Globulin Ratio 1.4 (1.1-1.8); Alkaline Phosphatase 66 U/L (38-126); Anion Gap 7.8 mEq/L (5-15); Aspartate Amino Transferase 25 U/L (14-36); Bilirubin,Total 0.3 mg/dl (0.2-1.3); Blood Urea Nitrogen 11 mg/dl (7-17); Calcium 8.6 mg/dl (8.4-10.2); Carbon Dioxide 32 mmol/L (22.0-30.0); Creatinine Clearance Estimated 65 mL/min (50-200); Estimated Glomerular Filt Rate 98 ml/min (>60); GFR (African American) 119 ML/MIN (>60); Globulin 2.7 g/dL (1.3-3.2); Glucose 117 mg/dl (74-100); Total Protein,Serum 6.5 g/dl (6.3-8.2)
[2023-10-14 07:01] LABS: Magnesium 1.7 mg/dl (1.6-2.3)
--- NOTE | 2023-10-14 07:39 | CT_ITS ---
FINAL REPORT TECHNIQUE: Thin section axial CT images with coronal and sagittal reformats were performed. Three-dimensional reformatted images were obtained and evaluated as well. This study was performed with techniques to keep radiation doses as low as reasonably achievable (ALARA). Individualized dose reduction techniques using automated exposure control or adjustment of mA and/or kV according to the patient's size were employed. CLINICAL HISTORY: Right hip fracture COMPARISON: None FINDINGS: There is a comminuted fracture of the femoral neck involving the superior femoral head as well. There is significant proximal displacement of the main distal fragment, by approximately 16 mm. There is mild degenerative change in the remainder of the right hip. IMPRESSION: Comminuted fracture of femoral neck with significant proximal displacement of the distal fragment as described. Reviewed, Interpreted and Dictated by Luis Billingsley III, MD Transcribed by Jina Coon Authenticated and [facility]
--- NOTE | 2023-10-14 07:48 | SW/DCPLANNER ---
This patient currently resides at [facility] level of care. I will continue to follow up w/ Sania at [facility] until patient is medically stable for discharge. Discharge date is unknown at this time.
--- NOTE | 2023-10-14 07:51 | HMH.PHAINT1 ---
Pharmacy Intervention Comments: Med reconciliation completed using list from Mil[facility]
--- NOTE | 2023-10-14 21:51 | EXP.ORTH.CON ---
History of Present Illness *Admission Date: 10/14/23 *History of present illness: This is 72 yo F [facility] resident with an extensive PMHx, significant, but not limited to COPD on 2-3L NC at baseline, obesity, HTN, HLD, anxiety, depression, schizophrenia who was brought in to ED for evaluation after fall at their facility. Patient c/o head and right hip and shoulder pain post fall. Patient stated she was sitting in her chair and was standing up to go to the bathroom; patient reports she is not ambulatory and travels via wheelchair. Patient had head trauma, but does not reported LOC. Denied blood thinner. Admitted for treatment and management. Found to have Hip fracture and ortho consulted for treatment. [facility] Disclaimer: The information contained in this section may have been updated after the patient was seen, as this information can be updated by other users. Medical History Abdominal pain Acquired hypothyroidism Acute bronchitis Acute exacerbation of chronic obstructive airways disease Arthritis Aspiration pneumonia Atherosclerotic cardiovascular disease Breast nodule Cholelithiasis Chronic low back pain Closed head injury Colon, diverticulosis Community acquired bacterial pneumonia Community acquired pneumonia COPD exacerbation COPD with acute exacerbation Cough Decreased mobility Depression Diverticulosis Dysphagia E. coli UTI (urinary tract infection) Emphysema/COPD Emphysematous cystitis Esophageal diverticulum Essential hypertension Fall Generalized anxiety disorder GERD (gastroesophageal reflux disease) Gram-negative infection History of cystitis History of dysuria History of falling Hx MRSA infection Hyperlipidemia Hypertension Hypokalemia Hypothyroid Intervertebral disc disorder Low back pain radiating to both legs Lumbar radiculopathy Lung nodule Lung nodule seen on imaging study Migraine Nicotine dependence Obesity (BMI 30-39.9) Pneumonia Pseudomonas urinary tract infection Respiratory failure with hypoxia and hypercapnia Rheumatoid arthritis RLL pneumonia Schizoaffective disorder Sepsis Sepsis with acute organ dysfunction SIRS (systemic inflammatory response syndrome) Staphylococcus aureus pneumonia Tobacco dependence Toe pain, left Urinary incontinence UTI (urinary tract infection) Surgical History H/O: hysterectomy Family History Other Family history of cancer Social History Smoking Status: Never smoker second hand exposure: Yes alcohol intake: former substance use type: denies use current occupational status: retired Travel in the last 8 weeks: None household members: family housing: [facility] diet: low salt caffeine: Yes Meds Home Medications and Allergies Home Medications Medication Instructions Recorded Confirmed Type albuterol sulfate 90 mcg/actuation 2 puff inhalation Q4HP PRN 10/15/22 10/14/23 Rx aerosol inhaler (ProAir HFA) Shortness Of Breath Or Wheezing #8.5 grams aspirin 81 mg tablet,delayed 81 mg PO DAILY Heart disease #90 10/15/22 10/14/23 Rx release tabs budesonide-formoterol HFA 160 2 inh inhalation BID Breathing 10/15/22 10/14/23 Rx mcg-4.5 mcg/actuation aerosol problems #10.2 grams inhaler cholecalciferol (vitamin D3) 25 25 mcg PO DAILY Supplement #90 caps 10/15/22 10/14/23 Rx mcg (1,000 unit) capsule pravastatin 20 mg tablet 20 mg PO HS Cholesterol #90 tabs 10/15/22 10/14/23 Rx acetaminophen 500 mg tablet 500 mg PO TID Pain 12/20/22 10/14/23 History citalopram 40 mg tablet 30 mg PO DAILY MOOD 03/28/23 10/14/23 History levothyroxine 50 mcg tablet 50 mcg PO DAILY thyroid 03/28/23 10/14/23 History melatonin 3 mg tablet 3 mg PO HS SLEEP 03/28/23 10/14/23 History pantoprazole 40 m
[2023-10-15] VITALS (15 sets, daily range): BP systolic 115–178; BP diastolic 44–90; PULSE 78–117; RESP 12–22; TEMP 36.8–37.6; O2SAT 92–100; BMI 28.2
[2023-10-15 06:54] LABS: Basophils % 0.2 % (0.1-2.0); Eosinophils # 0.2 K/mm3 (0.0-0.4); Eosinophils % 1.7 % (0.1-12.0); Hematocrit 36.3 % (37.0-47.0); Hemoglobin 11.7 g/dL (12.2-16.2); Lymphocytes # 1.5 K/mm3 (0.7-4.5); Lymphocytes % 10.4 % (10-50); Mean Corpuscular HGB Conc 32.3 g/dL (31.8-35.4); Mean Corpuscular Hemoglobin 27.5 pg (27.0-31.2); Mean Corpuscular Volume 85.2 fl (81-99); Mean Platelet Volume 8.4 fl (7.4-10.4); Monocytes # 1.2 K/mm3 (0.1-1.0); Monocytes % 8.7 % (1.7-9.3); Neutrophils # 11.1 K/mm3 (1.8-7.8); Platelet Count 294 K/mm3 (142-424); Red Blood Count 4.26 M/mm3 (4.20-5.40); Red Cell Distribution Width 16.1 % (11.5-17.5); White Blood Count 14.1 K/mm3 (4.8-10.8)
[2023-10-15 07:06] LABS: Chloride 101 mmol/L (98-107); Sodium 136 mmol/L (136-145)
[2023-10-15 07:09] LABS: Alanine Aminotransferase 17 U/L (12-78); Albumin Level 3.8 g/dl (3.5-5.0); Albumin/Globulin Ratio 1.3 (1.1-1.8); Alkaline Phosphatase 64 U/L (38-126); Aspartate Amino Transferase 22 U/L (14-36); Bilirubin,Total 0.5 mg/dl (0.2-1.3); Blood Urea Nitrogen 8 mg/dl (7-17); Calcium 8.3 mg/dl (8.4-10.2); Carbon Dioxide 31 mmol/L (22.0-30.0); Creatinine Clearance Estimated 65 mL/min (50-200); Estimated Glomerular Filt Rate 98 ml/min (>60); GFR (African American) 119 ML/MIN (>60); Globulin 2.9 g/dL (1.3-3.2); Glucose 108 mg/dl (74-100); Total Protein,Serum 6.7 g/dl (6.3-8.2)
[2023-10-15 07:10] LABS: Magnesium 1.8 mg/dl (1.6-2.3)
[2023-10-15 07:35] LABS: INR 0.96 (0.9-1.1); Prothrombin Time 10.4 seconds (10.1-12.5)
--- NOTE | 2023-10-15 10:53 | EXP.ACUTE.PN ---
Subjective *Date: 10/15/23 *Time: 10:53 Interval history: Pain stable overnight as long as patient does not move. Stable on 3 L nasal cannula oxygen. Awaiting surgery today. No nausea, vomiting, chest pain. Medical Exam Vital signs and Labs for Last 24 Hours: Vital Signs Temp Pulse Resp BP Pulse Ox O2 Del Method O2 Flow Rate 10/15/23 08:00 98.3 F 84 16 176/86 H 95 Nasal Cannula 3 10/15/23 07:00 Nasal Cannula 3 10/15/23 05:00 Nasal Cannula 3 10/15/23 04:00 98.6 F 79 22 155/80 H 95 Nasal Cannula 3 10/15/23 03:00 Nasal Cannula 3 10/15/23 01:00 Nasal Cannula 5 10/14/23 23:00 Nasal Cannula 5 10/14/23 21:00 Nasal Cannula 5 10/14/23 19:00 Nasal Cannula 3 10/14/23 21:00 Nasal Cannula 5 10/14/23 20:00 99.6 F 86 18 156/75 H 91 L Nasal Cannula 6 10/14/23 16:38 Nasal Cannula 3 10/14/23 15:58 98.9 F 85 18 140/70 91 L Nasal Cannula 3 10/14/23 15:00 Nasal Cannula 3 10/14/23 13:00 Nasal Cannula 3 10/14/23 11:00 Nasal Cannula Intake and Output 10/14/23 10/15/23 10/15/23 23:59 07:59 15:59 Intake Total 500 / 740 0 / 0 Output Total 400 / 600 200 / 600 Balance 500 / -460 -400 / -600 -200 / -600 Intake: Intake, Oral Amount 0 / 240 0 / 0 Intake, Total IV Amount 500 / 500 0.9 % Sodium Chloride 1000ML 1, 500 / 500 000 ml @ 50 mls/hr IV .Q20H [facility] Rx#:[id number] Output: Output, Urine Amount 400 / 600 200 / 600 Other: Number of Unmeasured Voids 0 Weight 81.647 kg Patient Weight 10/15/23 23:59 Weight 81.647 kg Laboratory Results - last 24 hr 10/15/23 06:10: WBC 14.1 H, RBC 4.26, Hgb 11.7 L, Hct 36.3 L, MCV 85.2, MCH 27.5, MCHC 32.3, RDW 16.1, Plt Count 294, MPV 8.4, Neut % (Auto) 79.0, Lymph % (Auto) 10.4, [place] % (Auto) 8.7, Eos % (Auto) 1.7, Baso % (Auto) 0.2, Neut # (Auto) 11.1 H, Lymph # (Auto) 1.5, [place] # (Auto) 1.2 H, Eos # (Auto) 0.2, Baso # (Auto) 0.0, PT 10.4, INR 0.96, Sodium 136, Potassium 4.0, Chloride 101, Carbon Dioxide 31 H, Anion Gap 8.0, BUN 8 D, Creatinine 0.60, Estimated Creat Clear 65, Estimated GFR 98, Est GFR ( Amer) 119, Glucose 108 H, Calcium 8.3 L, Magnesium 1.8, Total Bilirubin 0.5, AST 22, ALT 17, Alkaline Phosphatase 64, Total Protein 6.7, Albumin 3.8, Globulin 2.9, Albumin/Globulin Ratio 1.3 I & O for Labs for Last 24 Hours: Intake & Output 10/12/23 10/13/23 10/14/23 10/15/23 23:59 23:59 23:59 23:59 Intake Total 740 / 740 0 / 0 Output Total 1200 / 1200 600 / 600 Balance -460 / -460 -600 / -600 Weight 81.647 kg 81.647 kg 81.647 kg Constitutional: Present no acute distress, average body habitus and chronically ill appearing Head: Present atraumatic and normocephalic ENT: Present normal exam Respiratory: Present crackles and normal respiratory effort; Absent accessory muscle use, rhonchi or wheezes Cardiac: Present Reg Rate and Rhythm GI: Present soft and normal bowel sounds; Absent distention or tenderness Extremities: Absent edema Comment:: Right leg shorter than left, externally rotated. Tender to palpation of right hip. Skin: Present intact; Absent erythema Neuro: Present Grossly Intact, alert, awake, oriented x 3 and moves all extremities Assessment and Plan *Assessment and plan (1) Displaced fracture of right femoral neck: Status: Acute Category: Medical Code(s): S72.001A - Fracture of unspecified part of neck of right femur, initial encounter for closed fracture (2) Fall with injury: Status: Acute Qualifiers: Encounter type: initial encounter Qualified Code(s): W19.XXXA - Unspecified fall, initial encounter Category: Medical Code(s): W19.XXXA - Unspecified fall, initial encounter (3) Anxiety disorder: Status: Acute Qualifiers: Anxiety disorder type: unspecified anxiety disorder Qualified Code(s): F41.9 - Anxiety disorder, unspecified Category
--- NOTE | 2023-10-15 11:14 | DIET.NUTRFU ---
RD consulted for low chandler score of 12, she is currently NPO for sx today. Will reassess when diet is started.
--- NOTE | 2023-10-15 12:10 | PC.NURSE ---
Preop got patient from room. Consent and preop checklist completed.
--- NOTE | 2023-10-15 14:32 | P.PNANES_ITS ---
[facility] Disclaimer: The information contained in this section may have been updated after the patient was seen, as this information can be updated by other users. Medical History Abdominal pain Acquired hypothyroidism Acute bronchitis Acute exacerbation of chronic obstructive airways disease Arthritis Aspiration pneumonia Atherosclerotic cardiovascular disease Breast nodule Cholelithiasis Chronic low back pain Closed head injury Colon, diverticulosis Community acquired bacterial pneumonia Community acquired pneumonia COPD exacerbation COPD with acute exacerbation Cough Decreased mobility Depression Diverticulosis Dysphagia E. coli UTI (urinary tract infection) Emphysema/COPD Emphysematous cystitis Esophageal diverticulum Essential hypertension Fall Generalized anxiety disorder GERD (gastroesophageal reflux disease) Gram-negative infection History of cystitis History of dysuria History of falling Hx MRSA infection Hyperlipidemia Hypertension Hypokalemia Hypothyroid Intervertebral disc disorder Low back pain radiating to both legs Lumbar radiculopathy Lung nodule Lung nodule seen on imaging study Migraine Nicotine dependence Obesity (BMI 30-39.9) Pneumonia Pseudomonas urinary tract infection Respiratory failure with hypoxia and hypercapnia Rheumatoid arthritis RLL pneumonia Schizoaffective disorder Sepsis Sepsis with acute organ dysfunction SIRS (systemic inflammatory response syndrome) Staphylococcus aureus pneumonia Tobacco dependence Toe pain, left Urinary incontinence UTI (urinary tract infection) Surgical History H/O: hysterectomy Family History Other Family history of cancer Social History Smoking Status: Never smoker second hand exposure: Yes alcohol intake: former substance use type: denies use current occupational status: retired Travel in the last 8 weeks: None household members: family housing: residential diet: low salt caffeine: Yes [facility] Anesthesia Checklist Patient Identification Patient Identification: Verbal (Name & ) Structural Data Admitted From: Long-term Nursing Facility Planned Operative Procedure/s: orif r hip NPO Status Verified Time NPO: 00:00 Additional verifications Anesthesia Reactions: No Hx Blood Transfusions: No Airway Assessment Mallampati Score:: Class III C-Spine Mobility Assessed: Yes TMJ Mobility Assessed: Yes Dentition: Poor Dentition Neurological Assessment Level of Consciousness: Awake, Alert and Follows Commands Anesthesia Plan Anesthesia Risk discussed: Yes Anesthesia Plan: Verified ASA Class: III Anesthesia Type: MAC w/Spinal
--- NOTE | 2023-10-15 15:36 | XR_ITS ---
FINAL REPORT CLINICAL HISTORY: S/P right hip hemiarthroplasty COMPARISON: 10/13/2023 FINDINGS: SINGLE VIEW PELVIS: A single view of the pelvis was obtained. Since the prior exam of October 13 the patient has undergone right hip arthroplasty with no evident complication at this time. There is no acute fracture or dislocation. Visualized joint spaces are normally aligned. There is residual contrast present in the distal colon as seen on the prior exam. IMPRESSION: Since the prior exam of October 13 the patient has undergone right hip arthroplasty. Reviewed, Interpreted and Dictated by Luis Billingsley III, MD Transcribed by Jina Coon Authenticated and [facility]
--- NOTE | 2023-10-15 15:42 | P.OP_ITS ---
Date of procedure: 10/15/23 Pre-op Diagnosis:: Right hip displaced femoral neck fracture Post-op Diagnosis:: Same Procedure performed:: Hemiarthroplasty right hip Surgeon:: Jack Rodriguez DO FUND CONTROLLER:: Salas Cho Anesthesia: MAC and spinal Estimated blood loss (mL): 100 Operative findings:: Displaced femoral neck fracture Operative note:: Patient is identified preoperatively right hip marked with yes and my initials. Transported operative suite given spinal anesthesia. Then placed in a lateral position with the right hip up. Right hip was prepped and draped normal sterile fashion. Once prepped and draped final operative timeout performed to identify proper patient procedure and extremity. Everyone involved in the case agreed. There were no counter indications to beginning. She did receive preoperative an tibiotics. Marking pen was used to antolin plan incision over the lateral hip. Skin knife was used incise the skin careful dissection is taken down to identify the IT band which was cut in line. Charnley retractor was placed. Standard abductor peel was performed and protected anteriorly within the Charnley retractor. This revealed the capsule of the hip the capsule was cut in line with the neck fracture hematoma evacuated capsule was split in a T-type fashion and a freshen up cut was performed on the femoral neck. Retractors were placed in the femoral head was then removed from the acetabulum. Sized to a size 45 mm. Irrigation of the acetabulum was performed removal of any debris was performed. Attention was then brought to the femur the leg was brought anteriorly off the table into the sterile bag. Femoral neck elevator was placed acetabular retractor was placed home was replaced and cookie-cutter was used for initial exposure to the femoral neck. This was followed with a hand plate stacker and a curved lateralizing broach. The opening broach was then utilized and subsequently broached from starting from size [address] to 13 size 13 broach gave good fit and fill within the canal. Trial was removed irrigation performed final implant size [address]. Standard neck and standard femoral head height size 45 mm was selected and impacted into place. Pulling inline traction internally rotating the hip the hip was reduced within the acetabulum. Hip was taken through range of motion flexion extension internal and external rotation found to be very stable. Copious irrigation with Pulsavac performed. Capsule was repaired with 0 Vicryl suture. Abductor pillow was repaired with #5 Ethibond suture. The IT band was repaired with a running #1 strata fix suture. 0 Vicryl for deep tissue and 2-0 Vicryl for subcutaneous tissue was performed surgical clips in the skin for closure. Sterile dressing placed. Patient then waken anesthesia taken recovery in stable condition. Condition: stable Disposition: PACU Complications:: None apparent
--- NOTE | 2023-10-15 15:43 | P.PNANES_ITS ---
[facility] Anesthesia Record Part I Anesthesia Record I Intake, IV Amount: 1,300 Hydration: Adequate Estimated blood loss (mL): 200 Urine output (mL): 200 Blood Pressure: 154/82 SaO2: 99 Pulse Rate: 82 Airway Patency: Patent Respiratory Rate: 12 Temperature: 99.7 F Patient is:: Awake and Stable Stable to PACU at:: 15:40
--- NOTE | 2023-10-15 16:56 | PC.NURSE ---
patient refused oxygen saturation and temperature
--- NOTE | 2023-10-15 17:17 | PC.NURSE ---
RN and 2 other staff members tried to obtain post op VS on patient at 1655 and 1710; patient refusing VS at this time.
--- NOTE | 2023-10-15 17:26 | PC.NURSE ---
patient refusing post op vital signs and combative with staff. RN called Dr. Foley to make him aware. Dr. Foley advised to give patient a break until 1800, RN will reevaluate at that time.
--- NOTE | 2023-10-15 18:51 | PC.NURSE ---
Patient combative, trying to pull out IV and became combative with staff when RN tried to keep patient from pulling out IV. Mittens placed on patient.
[2023-10-16] VITALS: BP 122/71; PULSE 95; RESP 19; TEMP 37; O2SAT 92
[2023-10-16 04:00] VITALS: BP 118/46; PULSE 103; RESP 19; TEMP 37.3; O2SAT 94; BMI 28.9
--- NOTE | 2023-10-16 05:53 | PC.NURSE ---
Patient has rested well this shift. C/O pain at beginning of shift, pain medication given once. Patients lungs have scattered crackles at bases. Respirations even and unlabored. Patient has a weak non productive cough at times. Patients dressing to right hip is clean, dry and intact, no drainage noted. Positive pedal pulses to affected area, no swelling or redness noted. Patients bowel sounds are hypoactive X4. Cason cath in place draining pamela colored urine. Patient is AO to name, can answer simple questions with yes/no, patient is confused at times. Mittens was removed at beginning of shift, no combative behaviours noted, patient has been cooperative with care. Will continue plan of care and medsur protocols. Call guzman, personal belongings, bedside table, and water pitcher all in reach.
[2023-10-16 06:12] VITALS: O2SAT 90
[2023-10-16 06:28] LABS: Basophils % 0.2 % (0.1-2.0); Eosinophils # 0.1 K/mm3 (0.0-0.4); Eosinophils % 0.4 % (0.1-12.0); Hematocrit 28.7 % (37.0-47.0); Hemoglobin 9.5 g/dL (12.2-16.2); Lymphocytes # 1.3 K/mm3 (0.7-4.5); Lymphocytes % 11.1 % (10-50); Mean Corpuscular HGB Conc 33.1 g/dL (31.8-35.4); Mean Corpuscular Hemoglobin 27.9 pg (27.0-31.2); Mean Corpuscular Volume 84.5 fl (81-99); Mean Platelet Volume 6.6 fl (7.4-10.4); Monocytes # 0.9 K/mm3 (0.1-1.0); Monocytes % 7.3 % (1.7-9.3); Neutrophils # 9.7 K/mm3 (1.8-7.8); Platelet Count 267 K/mm3 (142-424); Red Blood Count 3.39 M/mm3 (4.20-5.40); Red Cell Distribution Width 15.7 % (11.5-17.5); White Blood Count 11.9 K/mm3 (4.8-10.8)
[2023-10-16 06:34] LABS: Chloride 103 mmol/L (98-107); Potassium 3.8 mmoL/L (3.5-5.1); Sodium 136 mmol/L (136-145)
[2023-10-16 06:36] LABS: Alanine Aminotransferase 18 U/L (12-78); Aspartate Amino Transferase 29 U/L (14-36); Blood Urea Nitrogen 12 mg/dl (7-17); Creatinine Clearance Estimated 66 mL/min (50-200); Estimated Glomerular Filt Rate 98 ml/min (>60); GFR (African American) 119 ML/MIN (>60)
[2023-10-16 06:37] LABS: Albumin Level 3.1 g/dl (3.5-5.0); Albumin/Globulin Ratio 1.1 (1.1-1.8); Alkaline Phosphatase 51 U/L (38-126); Anion Gap 5.8 mEq/L (5-15); Bilirubin,Total 0.4 mg/dl (0.2-1.3); Calcium 8.1 mg/dl (8.4-10.2); Carbon Dioxide 31 mmol/L (22.0-30.0); Globulin 2.7 g/dL (1.3-3.2); Glucose 135 mg/dl (74-100); Total Protein,Serum 5.8 g/dl (6.3-8.2)
[2023-10-16 08:00] VITALS: BP 126/57; PULSE 110; RESP 24; TEMP 37.3; O2SAT 94
--- NOTE | 2023-10-16 08:48 | EXP.ANES.II ---
[facility] Anesthesia Record Part II Anesthesia Record Part II Discharge Time: 16:10 Destination: Medical Surgical Department PACU nurse assessment reviewed?: Yes Patient Condition:: Good Anesthesia Complications:: None Swallowing reflex intact?: Yes Airway Patency: Patent Cyanosis?: No Blood Pressure: 166/90 SaO2: 97 Respiratory Rate: 18 Pulse Rate: 85 Temperature: 99.7 F Mental Status: Alert & Oriented Pain level:: 0 Nausea and/or vomitting:: None Intake, IV Amount: 0 Hydration: Adequate
[2023-10-16 08:49] VITALS: BP 166/90; PULSE 85; RESP 18; TEMP 37.6; O2SAT 97
--- NOTE | 2023-10-16 09:25 | EXP.DC.SUM ---
General Admission date:: 10/14/23 Discharge date: 10/16/23 HPI HPI HPI: This is 72 yo F [facility] resident with an extensive PMHx, significant, but not limited to COPD on 2-3L NC at baseline, obesity, HTN, HLD, anxiety, depression, schizophrenia who was brought in to ED for evaluation after fall at their facility. Patient c/o head and right hip and shoulder pain post fall. Patient stated she was sitting in her chair and was standing up to go to the bathroom; patient reports she is not ambulatory and travels via wheelchair. Patient had head trauma, but does not reported LOC. Denied blood thinner. Admitted for treatment and management. Found to have Hip fracture and ortho consulted for treatment. Hospital Course Hospital Course Hospital Course: 72 yo F [facility] resident with an extensive PMHx, significant, but not limited to COPD on 2-3L NC at baseline, obesity, HTN, HLD, anxiety, depression, schizophrenia who was brought in to ED for evaluation after fall at their facility. Patient c/o head and right hip and shoulder pain post fall. On arrival scanning imaging was conducted. CT head and Cervical spine are negative for acute trauma or fracture. Knee and shoulder are also negative. Imaging positive for displaced right femoral neck fracture. Orthopedics consulted. Taken for surgery on 10/15. Stable for discharge. Problems addressed as follows: - Right neck femur fracture secondary to mechanical fall: -History of fall Ortho consulted, patient taken to the OR on 10/15 for hemiarthroplasty of right hip. Tolerated procedure well. Stable to discharge back to nursing facility for rehab. Will continue aspirin 325 mg twice daily for 6 weeks for anticoagulation/DVT prophylaxis. Patient has required minimal hydrocodone for pain control. Continue Tylenol as needed. Hydrocodone 5 prescribed for every 6 hours as needed for severe breakthrough pain. Medication sent to [facility] to his pharmacy for 3-day course. Recommend PT/OT eval when returns to nursing facility. Plan for follow-up with orthopedics as an outpatient for reevaluation of healing. - chronic conditons: Chronic O2 requirement, goal sats greater than 90%. Currently on 2 L. Continue pravastatin nightly for hypercholesterolemia. Continue pantoprazole 40mg daily for GERD Continue oxybutynin 10 daily for overactive bladder Continue levothyroxine 50 g daily for hypothyroid Continue Wellbutrin 150 mg twice daily, BuSpar grams 3 times a day, citalopram 30 mg daily for mood Stable for discharge back to [facility]. Exam Data for Last 24 hours Vital signs and Labs for Last 24 Hours: Temp Pulse Resp BP Pulse Ox O2 Del Method O2 Flow Rate 99.2 F 110 H 18 126/57 L 94 L Nasal Cannula 2.5 10/16/23 08:00 10/16/23 08:00 10/16/23 08:49 10/16/23 08:00 10/16/23 08:00 10/16/23 09:00 10/16/23 08:00 Laboratory Results - last 24 hr 10/16/23 06:13: WBC 11.9 H, RBC 3.39 L, Hgb 9.5 L, Hct 28.7 L, MCV 84.5, MCH 27.9, MCHC 33.1, RDW 15.7, Plt Count 267, MPV 6.6 L, Neut % (Auto) 81.0 H, Lymph % (Auto) 11.1, Crosby % (Auto) 7.3, Eos % (Auto) 0.4, Baso % (Auto) 0.2, Neut # (Auto) 9.7 H, Lymph # (Auto) 1.3, Crosby # (Auto) 0.9, Eos # (Auto) 0.1, Baso # (Auto) 0.0, Sodium 136, Potassium 3.8, Chloride 103, Carbon Dioxide 31 H, Anion Gap 5.8, BUN 12 D, Creatinine 0.60, Estimated Creat Clear 66, Estimated GFR 98, Est GFR ( Amer) 119, Glucose 135 H, Calcium 8.1 L, Total Bilirubin 0.4, AST 29 D, ALT 18, Alkaline Phosphatase 51, Total Protein 5.8 L, Albumin 3.1 L D, Globulin 2.7, Albumin/Globulin Ratio 1.1 I & O for Last 24 hours: Intake & Output 10/13/23 10/14/23 10/15/23 10/16/23 23:59 23:59 23:59 23:59 Intake Total 740 / 740 1300 / 1470 220 / 220 Output Total 1200 / 1200 600 / 600 150 / 150 Balance -460 / -460 700 / 870 70 / 70 Weight 81.647 kg 81.647 kg 81.6 kg 83.569 kg Microbiology Reports for the Last 24 Hours: Microbiology
--- NOTE | 2023-10-16 10:42 | HMH.OTEV ---
OT Inpatient Evaluation Rehab OT IP Evaluation Start: 10/15/23 15:36 Freq: ONCE Status: Active Protocol: Document 10/16/23 10:09 VINCENT (Rec: 10/16/23 10:42 VINCENT [id number]) Rehab OT IP Assessment Subjective History This is 72 yo F [facility] resident with an extensive PMHx, significant, but not limited to COPD on 2-3L NC at baseline, obesity, HTN, HLD, anxiety, depression, schizophrenia who was brought in to ED for evaluation after fall at their facility. Patient c/o head and right hip and shoulder pain post fall. Patient stated she was sitting in her chair and was standing up to go to the bathroom; patient reports she is not ambulatory and travels via wheelchair. Patient had head trauma, but does not reported LOC. Denied blood thinner. Admitted for treatment and management. Patient is a resident at [facility]. Patient used a RW to ambulate within facility CGA/MIN A. Patient required assistance from staffing for ADLs at times. Subjective Oh. Patient only orient to self and birthday. Patient unable to provide PLOF of ADLs and fx 'l mobility. Instructed Patient on proper hand and foot placement to complete bed mobility from supine->sit @ EOB requiring TDx3. Patient demonstrated poor static sitting balance and required max support to sit at EOB. Objective Patient Orientation Name,Birthday Right Upper Extremity Gross ROM WFL Left Upper Extremity Gross ROM WFL Bed Mobility bed mobility - supine/sit Assist Level Total/Dependent (100%) Rehab OT IP prob,goals,plan Problems Date of Evaluation: 10/16/23 OT IP Problems
--- NOTE | 2023-10-16 11:09 | HMH.PTEV ---
Physical Therapy Evaluation Rehab PT IP Evaluation Start: 10/15/23 15:36 Freq: ONCE Status: Active Protocol: Document 10/16/23 10:56 STEPHANIE (Rec: 10/16/23 11:09 STEPHANIE [id number]) Subjective/History History History Pt is a 72 y/o female who is a resident at [facility] with an extensive PMHx, significant, but not limited to COPD on 2- 3L NC at baseline, obesity, HTN, HLD, anxiety, depression, schizophrenia who was brought in to ED for evaluation after fall at their facility. Per history & physical note, ater the fall, pt with complaint of head, right hip and shoulder pain. Patient stated she was sitting in her chair and was standing up to go to the bathroom; patient reports she is not ambulatory and travels via wheelchair. Patient had head trauma, but does not reported LOC. Denied blood thinner. Admitted for treatment and management. Subjective Subjective Pt is s/p R hemiarthroplasty performed 10/15/23 for displaced femoral neck fracture. Pt is a poor historian and unable to provide information regarding previous living situation or functional mobility performance. Pt reports she is in pain. Rehab PT IP Eval Objective Appearance Patient Behavior Aggressive,Guarded Patient Orientation Name,Birthday Difficulty following instructions mild Speech Pattern Mumbled Balance Ability to Arise Unable Sitting Balance Leans or slides in chair Dynamic Sitting Balance Ability Poor Transfers Bed Transfer Ability Total/Dependent (100%) Rehab PT IP prob,goals,plan Problems Date of Evaluation: 10/16/23 PT IP Problems Bed Mobility,Transfers,Gait, Balance,Self care,Safety Rehab Potential Rehab Potential Good Equipment Needs Assistive Devices Rolling / Wheeled Walker Plan PT I
== END 2023-10-16 12:37 | DRG 522 ==
LOC: ER 10-14 00:21 → 2ND 10-14 00:29
PROVIDERS: Nurse Practitioner Family; Orthopaedic Surgery; Admitting Provider Internal Medicine Adolescent Medicine; Emergency Provider Emergency Medicine; Visit Provider Internal Medicine Adolescent Medicine
PROC: 0SRR0JZ Replacement of Right Hip Joint, Femoral Surface with Synthetic Substitute, Open Approach (ICD-10-PCS; CPT 27236; principal; 2023-10-15 12:45)
DX: S72.091A Other fracture of head and neck of right femur, initial encounter for closed fracture (principal); E66.9 Obesity, unspecified; I10 Essential (primary) hypertension; E78.5 Hyperlipidemia, unspecified; F41.9 Anxiety disorder, unspecified; F32.A Depression, unspecified; F20.9 Schizophrenia, unspecified; M19.90 Unspecified osteoarthritis, unspecified site; M54.9 Dorsalgia, unspecified; G89.29 Other chronic pain; J43.9 Emphysema, unspecified; K21.9 Gastro-esophageal reflux disease without esophagitis; E03.9 Hypothyroidism, unspecified; Z68.28 Body mass index [BMI] 28.0-28.9, adult; M06.9 Rheumatoid arthritis, unspecified; Z99.81 Dependence on supplemental oxygen; E78.00 Pure hypercholesterolemia, unspecified
CPT/HCPCS: 27236; 36415; 70450; 71045; 72125; 72170; 73030; 73552; 73562; 73700; 80053; 83735; 85025; 85610; 87081; 87086; 94640; 97162; 97165; 99285; C1776; J2405

== ENCOUNTER 2023-11-20 10:17 | Outpatient (CLI) | payer MEDICARE, MEDICAID, SELFPAY ==
--- NOTE | 2023-11-20 10:45 | XR_ITS ---
FINAL REPORT CLINICAL HISTORY: right hip fx COMPARISON: 10/15/2023 FINDINGS: RIGHT HIP Two views of the right hip demonstrate right hip arthroplasty with intact hardware. There is no acute fracture or dislocation. The joint spaces appear normal. The visualized bony structures are well aligned. No soft tissue abnormality is seen. IMPRESSION: No acute bony abnormality. Right hip arthroplasty with intact hardware. Reviewed, Interpreted and Dictated by Luis Billingsley III, MD Transcribed by Yancy Weeks Authenticated and [facility]
== END 2023-11-20 23:59 ==
PROVIDERS: PCP Family Medicine; Visit Provider Orthopaedic Surgery
DX: M25.551 Pain in right hip (principal)
CPT/HCPCS: 73502

== ENCOUNTER 2023-12-29 09:49 | Outpatient (CLI) | payer MEDICARE, MEDICAID, SELFPAY ==
--- NOTE | 2023-12-29 09:49 | FL_ITS ---
FINAL REPORT CLINICAL HISTORY: choking 878.36 dap 1.56 fluoro time FINDINGS: ESOPHAGRAM HISTORY: Dysphagia, choking. TECHNIQUE: Patient ingested thin barium contrast. Spot films were performed. A total of 54 images were saved. FINDINGS: A Zenker's diverticulum is identified.The esophagus demonstrates a small sliding-type hiatal hernia. There is gastroesophageal reflux to the thoracic inlet. There is mild esophageal dysmotility. No changes of esophagitis are evident. 13 mm barium tablet passes easily through the esophagus and into the stomach. Radiation exposure in Total DAP: 878.36 uGym2 Fluoroscopy time: 1 minute 56 seconds Total images: 54 IMPRESSION: Zenker's diverticulum. Small hiatal hernia with gastroesophageal reflux. Mild esophageal dysmotility. Reviewed, Interpreted and Dictated by Binh Taylor MD Transcribed by Cherie Daly PA-C Authenticated and [facility]
[2023-12-29] MEDS: BARIUM SULFATE(LIQUID E-Z-PAQUE);355ML BOTTLE 355 ML PO (10:57)
[2023-12-29] MEDS: BARIUM SULFATE (E-Z-HD 340GM);135ML BOTTLE 135 ML PO (10:57)
== END 2023-12-29 23:59 ==
PROVIDERS: PCP Family Medicine; Visit Provider Nurse Practitioner
DX: R13.10 Dysphagia, unspecified (principal)
CPT/HCPCS: 74220

== ENCOUNTER 2024-02-03 13:00 | Inpatient (IN) | payer MEDICARE, MEDICAID, SELFPAY ==
[2024-02-03] VITALS (14 sets, daily range): BP systolic 90–156; BP diastolic 38–94; PULSE 70–96; RESP 16–19; TEMP 36.7–36.9; O2SAT 90–95; BMI 30.6; BMI 30.2
--- NOTE | 2024-02-03 13:05 | PC.NURSE ---
DR OTERO AT BEDSIDE
--- NOTE | 2024-02-03 13:08 | XR_ITS ---
FINAL REPORT CLINICAL HISTORY: cough, shortness of breath COMPARISON: 10/13/2023 FINDINGS: The heart size is normal. The mediastinum is normal. Mild patchy airspace opacity at the bases is probably due to mild acute pneumonia and new from prior. There are no pleural effusions. There is no pneumothorax. There is no osseous abnormality. IMPRESSION: New mild acute pneumonia as above. Reviewed, Interpreted and Dictated by Binh Taylor MD Transcribed by Yancy Weeks Authenticated and [facility]
--- NOTE | 2024-02-03 13:11 | ED_ITS ---
Discharge Plan Disposition Patient Disposition: Admitted Clinical Impressions Clinical Impression: Sepsis due to pneumonia, Hypotension, Acute and chronic respiratory failure Discharge ED Provider: Sania Brice General Adult HPI General Chief complaint: Altered Mental Status Stated complaint: SOA Time Seen by Provider: 02/03/24 13:05 History of Present Illness HPI narrative: This patient is a 73-year-old female with a history of COPD on 3 L oxygen at baseline, hypothyroidism, diverticulosis, HTN, GERD, HLD presenting to the emergency department with concern for low oxygen readings and cough at the nursing facility. According to EMS, they were called to the scene because the patient had low oxygen and was more confused than usual. Upon arrival, they stated the patient was satting in the 70s on room air. On medical record review, she is chronically dependent on 3 L nasal cannula. They report that they put the patient on supplemental oxygen via nonrebreather initially to transport her, and her oxygen saturation improved to 100%. They gave her a DuoNeb with continued improvement in her mental status and oxygenation. They state that now she is much more alert and interactive than she was previously. They note that they were able to wean her down to nasal cannula from the nonrebreather. History is limited because patient at baseline has memory impairment per EMS and nursing facility report. Patient is currently alert and conversational and states that she has not been feeling well for a few days. She is actively coughing up thick yellow phlegm. She states that her butt is sore but otherwise she is experiencing no pain at this time. Related Data Home Medications Medication Instructions Recorded Confirmed acetaminophen 500 mg tablet 500 mg PO TID Pain 12/20/22 01/20/24 citalopram 40 mg tablet 30 mg PO DAILY MOOD 03/28/23 01/20/24 levothyroxine 50 mcg tablet 50 mcg PO DAILY thyroid 03/28/23 01/20/24 melatonin 3 mg tablet 3 mg PO HS SLEEP 03/28/23 01/20/24 pantoprazole 40 mg tablet,delayed 40 mg PO DAILY Acid reflux 03/28/23 01/20/24 release quetiapine 100 mg tablet 250 mg PO HS MOOD 03/28/23 01/20/24 cetirizine 10 mg tablet 10 mg PO DAILY 09/08/23 01/20/24 ipratropium 0.5 mg-albuterol 3 mg 3 ml inhalation HS shortness of 10/14/23 01/20/24 (2.5 mg base)/3 mL nebulization breath soln oxybutynin chloride 5 mg tablet 10 mg PO DAILY overactive bladder 10/14/23 01/20/24 prednisone 50 mg tablet 5 mg PO DAILY 10/14/23 01/20/24 trazodone 100 mg tablet 100 mg PO HS 10/14/23 01/20/24 dextromethorphan-guaifenesin 10 10 ml PO Q6H PRN 11/28/23 01/20/24 mg-100 mg/5 mL oral liquid lactulose 10 gram/15 mL oral 20 g PO DAILY PRN 11/28/23 01/20/24 solution multivitamin with minerals 1 cap PO DAILY 11/28/23 01/20/24 sennosides 8.6 mg tablet (senna) 8.6 mg PO DAILY PRN 11/28/23 01/20/24 Previous Rx's Medication Instructions Recorded albuterol sulfate 90 mcg/actuation 2 puff inhalation Q4HP PRN 10/15/22 aerosol inhaler (ProAir HFA) Shortness Of Breath Or Wheezing #8.5 grams aspirin 81 mg tablet,delayed 81 mg PO DAILY Heart disease #90 10/15/22 release tabs budesonide-formoterol HFA 160 2 inh inhalation BID Breathing 10/15/22 mcg-4.5 mcg/actuation aerosol problems #10.2 grams inhaler cholecalciferol (vitamin D3) 25 25 mcg PO DAILY Supplement #90 caps 10/15/22 mcg (1,000 unit) capsule pravastatin 20 mg tablet 20 mg PO HS Cholesterol #90 tabs 10/15/22 bupropion HCl 150 mg tablet,12 hr 150 mg PO BID #60 ea 05/29/23 sustained-release (Wellbutrin SR) metoclopramide HCl 5 mg tablet 5 mg PO TID #90 tabs 07/10/23 (Reglan) aspirin 325 mg tablet,delayed 325 mg PO BID 42 days #84 tabs 10/16/23 release alprazolam 0.25 mg tablet 0.25 mg PO TID Anxiety #90 tabs 11/24/23 gabapentin 400 mg capsule 400 mg PO TID Pain #90 caps 11/24/23 guaifenesin 400 mg tablet 400 mg PO DAILY #120 tabs 11/28/23 buspirone 7.5 mg tablet 7.5 mg PO TID #90 tabs 01/14/24 Allergies Allergy/AdvReac Type Severity Reaction Status Date / Time metronidazole Allergy Unknown I-HIVES Verified 01/20/24 10:53 nitrofurantoin Allergy Unknown Unknown Verified 01/20/24 10:53 [From MACROBID] allergy reaction [facility] Disclaimer: The information contained in this section may have been updated after the patient was seen, as this information can be updated by other users. Medical History Essential hypertension Arthritis Diverticulosis History of falling History of dysuria History of cystitis Migraine Rheumatoid arthritis Intervertebral disc disorder Schizoaffective disorder Depression Dysphagia GERD (gastroesophageal reflux disease) Nicotine dependence Hx MRSA infection Atherosclerotic cardiovascular disease Hypothyroid Emphysema/COPD Hypertension Hyperlipidemia Pseudomonas urinary tract infection Gram-negative infection Lumbar radiculopathy Toe pain, left Breast nodule Lung nodule Closed head injury Fall Community acquired pneumonia Respiratory failure with hypoxia and hypercapnia Sepsis with acute organ dysfunction Community acquired bacterial pneumonia Sepsis COPD exacerbation Aspiration pneumonia Esophageal diverticulum E. coli UTI (urinary tract infection) Hypokalemia SIRS (systemic inflammatory response syndrome) Cholelithiasis Colon, diverticulosis Emphysematous cystitis Abdominal pain UTI (urinary tract infection) Pneumonia Tobacco dependence Decreased mobility Urinary incontinence Low back pain radiating to both legs Obesity (BMI 30-39.9) COPD with acute exacerbation Staphylococcus aureus pneumonia Lung nodule seen on imaging study Acquired hypothyroidism Chronic low back pain Generalized anxiety disorder Cough Acute bronchitis RLL pneumonia Acute exacerbation of chronic obstructive airways disease Surgical History H/O: hysterectomy Family History Other Family history of cancer Social History Smoking Status: Never smoker second hand exposure: Yes alcohol intake: former substance use type: denies use current occupational status: retired Travel in the last 8 weeks: None household members: family housing: residential diet: low salt caffeine: Yes ROS Obtained: Yes All systems reviewed & no additional complaints except as documented Physical Exam General General appearance: alert and in no apparent distress Head Head exam: atraumatic and normocephalic Eye Eye exam: Present normal appearance, PERRL and EOMI ENT ENT exam: Present normal oropharynx, mucous membranes dry, normal external ear exam and other (Mucous membranes dry with thick, yellow sputum on the inside of her lips) Neck Neck exam: Present normal inspection, full ROM and trachea midline; Absent tenderness Chest Chest inspection: Present normal inspection and symmetric chest wall rise; Absent tenderness Respiratory Respiratory exam: Present wheezes and other (Bilateral rhonchi and wheezing noted. No increased work of breathing.); Absent respiratory distress, stridor or accessory muscle use Cardiovascular Cardiovascular exam: Present regular rate and normal rhythm Abdominal Exam Abdominal exam: Present soft; Absent distention, tenderness or guarding Extremities Exam Extremities exam: Present normal inspection, full ROM and normal capillary refill; Absent tenderness or edema Back Exam Back exam: Present normal inspection and full ROM; Absent tenderness Neurological Exam Neurological exam: Present alert, oriented X3, CN II-XII intact and normal gait; Absent motor sensory deficit Psychiatric Psychiatric exam: Present normal affect and normal mood Skin Skin exam: Present warm and dry Medical Decision Making Medical Records Medical records reviewed: Yes I reviewed the patient's medical records. Alex Inquiry Pt receiving controlled substance: No Vital Signs: 02/03/24 13:01 02/03/24 13:28 02/03/24 13:33 Temperature 98.2 F Temperature Source Oral Pulse Rate 72 72 Pulse Rate [Left Radial] 87 Respiratory Rate 19 Blood Pressure 117/91 H 108/38 L Blood Pressure [Right Arm] 120/94 H Blood Pressure Mean 94 66 Blood Pressure Mean [Right Arm] 102 02 Sat by Pulse Oximetry 90 L 95 95 Oxygen Delivery Method Nasal Cannula Oxygen Flow Rate (LPM) 4 02/03/24 13:41 02/03/24 14:01 02/03/24 14:40 Temperature Temperature Source Pulse Rate 71 78 73 Pulse Rate [Left Radial] Respiratory Rate 17 Blood Pressure 140/59 L 90/47 L 142/46 H Blood Pressure [Right Arm] Blood Pressure Mean 74 66 63 Blood Pressure Mean [Right Arm] 02 Sat by Pulse Oximetry 94 L 94 L 93 L Oxygen Delivery Method Nasal Cannula Oxygen Flow Rate (LPM) 5 02/03/24 14:41 02/03/24 15:01 Temperature Temperature Source Pulse Rate 73 Pulse Rate [Left Radial] Respiratory Rate 17 16 Blood Pressure 121/53 L 91/68 L Blood Pressure [Right Arm] Blood Pressure Mean 63 73 Blood Pressure Mean [Right Arm] 02 Sat by Pulse Oximetry 93 L 95 Oxygen Delivery Method Nasal Cannula Nasal Cannula Oxygen Flow Rate (LPM) 5 5 Lab Data Lab results reviewed: Yes I reviewed the patient's lab results. Lab Results 02/03/24 13:03: WBC 14.3 H, RBC 3.98 L, Hgb 10.9 L, Hct 34.1 L, MCV 85.8, MCH 27.3, MCHC 31.8, RDW 16.4, Plt Count 401, MPV 7.9, Neut % (Auto) 81.0 H, Lymph % (Auto) 11.3, [place] % (Auto) 5.9, Eos % (Auto) 1.3, Baso % (Auto) 0.5, Neut # (Auto) 11.5 H, Lymph # (Auto) 1.6, [place] # (Auto) 0.8, Eos # (Auto) 0.2, Baso # (Auto) 0.1, D-Dimer 0.34, Sodium 138, Potassium 4.3, Chloride 103, Carbon Dioxide 32 H, Anion Gap 7.3, BUN 8, Creatinine 0.50 L, Estimated Creat Clear 67, Estimated GFR 121, Est GFR ( Amer) 146, Glucose 103 H, Calcium 9.1, Total Bilirubin 0.3, AST 27, ALT 16, Alkaline Phosphatase 76, Troponin I < 0.01, C- Reactive Protein 187.9 H, NT-Pro-B Natriuret Pep 187 H, Total Protein 6.5, Albumin 3.5, Globulin 3.0, Albumin/Globulin Ratio 1.2, Procalcitonin 0.074 02/03/24 13:10: VBG pH 7.38, VBG pCO2 51.8 H, VBG pO2 43.5 H, VBG HCO3 30.1 H, V BG Total CO2 31.7 H, VBG O2 Saturation 76.0 H, VBG Base Excess 5.0 H, VBG Lactic Acid 1.2 02/03/24 13:15: SARS-CoV-2 (PCR) Not detected, Influenza A Untype (PCR) Not detected, Influenza Type B (PCR) Not detected 02/03/24 13:03 02/03/24 13:03 Orders (Tests/Meds): ED MEDICATIONS Generic Name Dose Route Start Last Admin Trade Name Samsonq PRN Reason Stop Dose Admin Acetaminophen 650 mg 02/03/24 14:37 Acetaminophen 325mg Tab PO 03/04/24 14:36 Q4HP PRN Fever or Mild Pain (1-3) Levofloxacin/Dextrose 750 mg in 150 mls @ 100 mls/hr 02/03/24 14:34 02/03/24 14:55 Levofloxacin 750mg/150ml Premix IV 02/03/24 16:03 100 mls/hr ONCE ONE Administration Lactated Ringer's 1,000 mls @ 999 mls/hr 02/03/24 14:34 02/03/24 14:45 Lactated Ringer's 1000 Ml Bag IV 02/03/24 15:34 Not Given .Q1H1M ONE Lactated Ringer's 1,000 mls @ 999 mls/hr 02/03/24 14:36 Lactated Ringer's 1000 Ml Bag IV 02/03/24 15:36 .Q1H1M ONE Sodium Chloride 3 ml 02/03/24 13:06 Sodium Chloride 3% 15ml [facility] 03/04/24 13:05 ONCE PRN INDUCE SPUTUM COLLECTION Discontinued Medications Generic Name Dose Route Start Last Admin Trade Name Samsonq PRN Reason Stop Dose Admin Albuterol/Ipratropium 6 ml 02/03/24 13:07 02/03/24 13:32 Ipratropium/Albuterol 3 Ml [facility] 02/03/24 13:08 6 ml ONCE ONE Administration Lactated Ringer's 1,000 mls @ 999 mls/hr 02/03/24 13:19 02/03/24 13:29 Lactated Ringer's 1000 Ml Bag IV 02/03/24 14:19 999 mls/hr .Q1H1M ONE Administration Methylprednisolone Sodium Succinate 125 mg 02/03/24 13:07 02/03/24 13:14 Methylprednisolone Sod Succ 125mg Vial IV 02/03/24 13:08 125 mg ONCE ONE Administration ORDERS Category Date Time Status CXR --portable [XR chest portable] Stat Exams 02/03/24 13:08 Taken C-Reactive Protein Stat Lab 02/03/24 13:03 Completed Complete Blood Count Auto Diff AMLAB Lab 02/04/24 06:00 Ordered Complete Blood Count Auto Diff Stat Lab 02/03/24 13:03 Completed Comprehensive Metabolic Panel AMLAB Lab 02/04/24 06:00 Ordered Comprehensive Metabolic Panel Stat Lab 02/03/24 13:03 Completed D-Dimer Stat Lab 02/03/24 13:03 Completed Magnesium AMLAB Lab 02/04/24 06:00 Ordered NT Pro Brain Natriuretic Pep. Stat Lab 02/03/24 13:03 Completed Procalcitonin Stat Lab 02/03/24 13:03 Completed Rapid PCR Covid and Flu A/B Stat Lab 02/03/24 13:15 Completed Trop I [Troponin I] Stat Lab 02/03/24 13:03 Completed Troponin I Q3H Lab 02/03/24 16:15 Ordered Troponin I Q3H Lab 02/03/24 19:15 Ordered Urinalysis and Microscopic Stat Lab 02/03/24 14:36 Received Blood Culture Stat Micro 02/03/24 13:35 Received Sputum Culture & Gram Stain Stat Micro 02/03/24 13:06 Ordered VBG [Venous Blood Gas] Stat RT 02/03/24 13:10 Completed ECG Data Tracing #1: I reviewed this ECG and interpreted as documented below: Normal sinus rhythm with a ventricular rate of 74 bpm. Mild motion artifact noted. No STEMI. No significant changes from prior EKG. ECG initial impression date: 02/03/24 ECG initial impression time: 13:22 Medical Decision Narrative: In summary, this patient is a 73-year-old female presenting to the Emergency Department for evaluation of low oxygen was being set the nursing facility as well as cough. Differential diagnoses considered include but are not limited to pneumonia, COPD exacerbation, CO2 retention, respiratory failure, viral syndrome, ACS, dysrhythmia, PE. Ruling out the most morbid conditions drove assessment. On exam, the patient is alert and conversational and in no acute distress. No increased work of breathing noted, though she does have bilateral wheezing and rhonchi. Mucous membranes are dry and she has thick, yellow sputum. Patient initially with O2 saturation of 88% on her home 3 L nasal cannula. She is tight and wheezing, so she was given 2 more DuoNebs in addition to the nebulizer treatment that was administered by EMS. A bolus of IV fluids was administered given that her mucous membranes appear dry, and IV methylprednisolone was administered with concern for possible COPD exacerbation. Workup included CBC, CMP, VBG, lactic acid, CRP, procalcitonin, troponin, D-dimer, BNP, chest x-ray, EKG, blood cultures, and viral swab were ordered. I independently interpreted x-ray prior to the radiologist read and noted concern for bibasilar pneumonia. Please see their read for final interpretation. Labs were obtained that demonstrated leukocytosis without other acutely concerning abnormalities. Chronic compensated respiratory failure noted with elevated CO2 but normal pH. On reassessment, patient had good improvement in aeration after nebulizer treatments. She has had soft pressures. Systolic is been in the 90s with maps in the low 60s. Given leukocytosis, slight blood pressure, pneumonia, and tachypnea, patient does meet SIRS criteria. Concern for sepsis secondary to pneumonia at this time. Patient was started on IV Levaquin. Blood cultures were sent and are pending. Patient was given 2 L of IV fluid, which is the equivalent of a sepsis bolus. At this time, she is deemed to be appropriate for admission for further evaluation and management. I had an interactive discussion with Dr. Foley with hospital medicine who admitted the patient in stable condition. Critical Care Critical Care Time Critical Care Time: No
[2024-02-03] MEDS: METHYLPREDNISOLONE SOD SUCC 125MG VIAL 125 MG IV (13:14)
[2024-02-03 13:15] LABS: Basophils # 0.1 K/mm3 (0-0.2); Basophils % 0.5 % (0.1-2.0); Eosinophils # 0.2 K/mm3 (0.0-0.4); Eosinophils % 1.3 % (0.1-12.0); Hematocrit 34.1 % (37.0-47.0); Hemoglobin 10.9 g/dL (12.2-16.2); Lymphocytes # 1.6 K/mm3 (0.7-4.5); Lymphocytes % 11.3 % (10-50); Mean Corpuscular HGB Conc 31.8 g/dL (31.8-35.4); Mean Corpuscular Hemoglobin 27.3 pg (27.0-31.2); Mean Corpuscular Volume 85.8 fl (81-99); Mean Platelet Volume 7.9 fl (7.4-10.4); Monocytes # 0.8 K/mm3 (0.1-1.0); Monocytes % 5.9 % (1.7-9.3); Neutrophils # 11.5 K/mm3 (1.8-7.8); Platelet Count 401 K/mm3 (142-424); Red Blood Count 3.98 M/mm3 (4.20-5.40); Red Cell Distribution Width 16.4 % (11.5-17.5); White Blood Count 14.3 K/mm3 (4.8-10.8)
--- NOTE | 2024-02-03 13:16 | PC.NURSE ---
XR AT BEDSIDE
[2024-02-03 13:17] LABS: Lactate Venous 1.2 mmol/L (0.4-2.0); VBG HCO3 30.1 mmol/L (23-30); VBG PH 7.38 mmol/L (7.31-7.41); VBG PO2 43.5 mmol/L (28-40); VBG Total CO2 31.7 mmol/L (23-27)
[2024-02-03 13:18] LABS: Chloride 103 mmol/L (98-107); Potassium 4.3 mmoL/L (3.5-5.1); Sodium 138 mmol/L (136-145)
[2024-02-03 13:19] LABS: Coronavirus 19, PCR Not Detected (NotDetected); Influenza A, PCR Not Detected (NotDetected); Influenza B, PCR Not Detected (NotDetected)
[2024-02-03 13:21] LABS: Alanine Aminotransferase 16 U/L (12-78); Albumin Level 3.5 g/dl (3.5-5.0); Albumin/Globulin Ratio 1.2 (1.1-1.8); Alkaline Phosphatase 76 U/L (38-126); Anion Gap 7.3 mEq/L (5-15); Aspartate Amino Transferase 27 U/L (14-36); Bilirubin,Total 0.3 mg/dl (0.2-1.3); Blood Urea Nitrogen 8 mg/dl (7-17); Carbon Dioxide 32 mmol/L (22.0-30.0); Creatinine Clearance Estimated 67 mL/min (50-200); Estimated Glomerular Filt Rate 121 ml/min (>60); GFR (African American) 146 ML/MIN (>60); Total Protein,Serum 6.5 g/dl (6.3-8.2)
[2024-02-03 13:21] LABS: VBG PCO2 51.8 mmol/L (35-51)
--- NOTE | 2024-02-03 13:21 | ECG_ITS ---
APPROVED REPORT Exam: Resting ECG HR:74 bpm ECG Measurements Heart Rate 74 AXES QRSd 94 QRS 79 QT 417 T 40 QTc 445 Conclusion Sinus rhythm with a ventricular rate of 74 bpm. Patient has motion artifact noted which obscures the baseline. No obvious acute ST elevations concerning for ischemia. Electronically signed by : CRISTOBAL OTERO, 02/03/2024 15:28:40
[2024-02-03 13:22] LABS: Calcium 9.1 mg/dl (8.4-10.2); Glucose 103 mg/dl (74-100)
[2024-02-03 13:27] LABS: C-Reactive Protein 187.9 mg/L (0-4)
[2024-02-03 13:29] LABS: D-Dimer 0.34 ug/mL (0.0-0.5)
[2024-02-03] MEDS: LACTATED RINGERS 1000ML 1,000 ML 999 ML IV (13:29)
[2024-02-03] MEDS: IPRATROPIUM/ALBUTEROL 3 ML NEB 6 ML IH (13:32)
[2024-02-03 13:33] LABS: NT Pro Brain Natriuretic Pep. 187 pg/mL (0-125)
[2024-02-03 13:36] LABS: Troponin I < 0.01 ng/ml (0.00-0.034)
[2024-02-03 14:01] LABS: Procalcitonin 0.074 ng/mL (0.0-2.0)
--- NOTE | 2024-02-03 14:37 | PC.NURSE ---
DR OTERO SPEAKING WITH DR RAIN FOR ADMISSION
--- NOTE | 2024-02-03 14:40 | PC.NURSE ---
FILTERATION OPERATOR NOTIFIED OF ADMISSION
[2024-02-03 14:43] LABS: Microscopic, Urine URINE MICROSCOPIC (MICROSCOPIC)
[2024-02-03] MEDS: LEVOFLOXACIN/D5W 750 MG/150 ML 750 MG/150 ML PIGGYBACK 100 MG IV (14:55)
--- NOTE | 2024-02-03 14:56 | PC.NURSE ---
attempted to call report. call sent to charge nurse, no answer. will try again.
[2024-02-03 14:59] LABS: Appearance,Urine SL CLOUDY (Clear); Bilirubin,Urine Negative (Negative); Blood, Urine 1+ (Negative); Color,Urine YELLOW (Yellow); Glucose,Urine (UA) Negative (Negative); Ketones,Urine 1+ (Negative); Leukocyte Esterase,Urine TRACE (Negative); Nitrate,Urine POSITIVE (Negative); PH,Urine 6.5 (5.0-8.5); Protein,Urine Negative (Negative); Urobilinogen,Urine 0.2 EU/dl (0.2)
--- NOTE | 2024-02-03 15:04 | PC.NURSE ---
report called to ermelinda on second floor
--- NOTE | 2024-02-03 15:52 | SW/DCPLANNER ---
Addendum entered by Dinorah Reardon 02/06/24 09:22: I have updated [facility] w/ [facility] that patient will return today [facility] level of care. Addendum entered by Dinorah [place] 02/05/24 11:53: CM has updated [facility] that patient will not discharge today. I will fax updated patient information. Addendum entered by Dinorah Reardon 02/04/24 13:37: I have updated [facility] that patient will not discharge today. Addendum entered by Dinorah [place] 02/04/24 11:35: I have updated [facility] w/ [facility] that patient will return today and updated patient information has been faxed. Original Note: This patient currently resides at [facility] level of care. I will continue to follow up a/ Sania until patient is medically stable for discharge. Discharge date is unknown at this time.
[2024-02-03 16:11] LABS: Bacteria,Urine 3+ /lpf; RBC,Urine Occasional #/hpf (0-3); Squamous Epithelial Cell,Urine Occasional #/hpf (0-5)
--- NOTE | 2024-02-03 16:21 | P.HP_ITS ---
History of Present Illness *Admission Date: 02/03/24 *Reason for visit:: shortness of breath *History of present illness: Ms. Sommer is a 73-year-old female with history of COPD on 3 L oxygen at baseline. Also has hypothyroidism, diverticulosis, hypertension, GERD, hyperlipidemia. She resides in a snf. She presented to the ER via EMS because they were called due to concern for low oxygen and increased confusion from usual. On arrival, EMS said she was satting in the 70s. I treated her with increasing her oxygen to a nonrebreather and brought her to the ER for further evaluation. Received DuoNeb and route. Had some improvement in her mentation. On arrival to the ER, patient is found to have increased oxygen requirement, chest imaging concerning for pneumonia, white cell count of 14,000. Requiring 5 L nasal cannula for appropriate saturations above 90%. Medicine consulted for admission and further management. Initiated on antibiotics with levofloxacin 750 mg x 1. Received sepsis bolus. Started on IV steroids. Responded to breathing treatments. Admitted to medicine. On arrival to the floor, patient is still quite fatigued. Unable to provide significant history. States has been short of breath for years. Appears quite sleepy and falls asleep between questions. No nausea or vomiting. No chest pain. Has significant rhonchorous cough that is productive of yellow phlegm. [facility] Disclaimer: The information contained in this section may have been updated after the patient was seen, as this information can be updated by other users. Medical History (Updated 02/03/24 @ 16:35 by Frankie Foley MD) Pneumonia Asthma Congenital diverticulum of esophagus Anxiety Schizo affective schizophrenia Essential hypertension Arthritis Diverticulosis History of falling History of dysuria History of cystitis Migraine Rheumatoid arthritis Intervertebral disc disorder Schizoaffective disorder Depression Dysphagia GERD (gastroesophageal reflux disease) Nicotine dependence Hx MRSA infection Atherosclerotic cardiovascular disease Hypothyroid Emphysema/COPD Hypertension Hyperlipidemia Pseudomonas urinary tract infection Gram-negative infection Lumbar radiculopathy Toe pain, left Breast nodule Lung nodule Closed head injury Fall Community acquired pneumonia Respiratory failure with hypoxia and hypercapnia Sepsis with acute organ dysfunction Community acquired bacterial pneumonia Sepsis COPD exacerbation Aspiration pneumonia Esophageal diverticulum E. coli UTI (urinary tract infection) Hypokalemia SIRS (systemic inflammatory response syndrome) Cholelithiasis Colon, diverticulosis Emphysematous cystitis Abdominal pain UTI (urinary tract infection) Tobacco dependence Decreased mobility Urinary incontinence Low back pain radiating to both legs Obesity (BMI 30-39.9) COPD with acute exacerbation Staphylococcus aureus pneumonia Lung nodule seen on imaging study Acquired hypothyroidism Chronic low back pain Generalized anxiety disorder Cough Acute bronchitis RLL pneumonia Acute exacerbation of chronic obstructive airways disease Surgical History H/O: hysterectomy Family History Family history of cancer Social History Smoking Status: Never smoker second hand exposure: Yes alcohol intake: former substance use type: denies use current occupational status: retired Travel in the last 8 weeks: None household members: family housing: snf diet: low salt caffeine: Yes Review of Systems Review of Systems Review of systems (narrative): 14 point review of systems performed, pertinent positives and negatives as per HPI Meds Home Medications and Allergies Home Medications Medication Instructions Recorded Confirmed Type albuterol sulfate 90 mcg/actuation 2 puff inhalation Q4HP PRN 10/15/22 02/03/24 Rx aerosol inhaler (ProAir HFA) Shortness Of Breath Or Wheezing #8.5 grams aspirin 81 mg tablet,delayed 81 mg PO DAILY Heart disease #90 10/15/22 02/03/24 Rx release tabs budesonide-formoterol HFA 160 2 inh inhalation BID Breathing 10/15/22 02/03/24 Rx mcg-4.5 mcg/actuation aerosol problems #10.2 grams inhaler cholecalciferol (vitamin D3) 25 25 mcg PO DAILY Supplement #90 caps 10/15/22 02/03/24 Rx mcg (1,000 unit) capsule pravastatin 20 mg tablet 20 mg PO HS Cholesterol #90 tabs 10/15/22 02/03/24 Rx acetaminophen 500 mg tablet 500 mg PO TID Pain 12/20/22 02/03/24 History levothyroxine 50 mcg tablet 50 mcg PO DAILY thyroid 03/28/23 02/03/24 History melatonin 3 mg tablet 3 mg PO HS SLEEP 03/28/23 02/03/24 History pantoprazole 40 mg tablet,delayed 40 mg PO DAILY Acid reflux 03/28/23 02/03/24 History release quetiapine 100 mg tablet 250 mg PO HS MOOD 03/28/23 02/03/24 History bupropion HCl 150 mg tablet,12 hr 150 mg PO BID #60 ea 05/29/23 02/03/24 Rx sustained-release (Wellbutrin SR) metoclopramide HCl 5 mg tablet 5 mg PO TID #90 tabs 07/10/23 02/03/24 Rx (Reglan) cetirizine 10 mg tablet 10 mg PO DAILY 09/08/23 02/03/24 History ipratropium 0.5 mg-albuterol 3 mg 3 ml inhalation HS shortness of 10/14/23 02/03/24 History (2.5 mg base)/3 mL nebulization breath soln oxybutynin chloride 5 mg tablet 10 mg PO DAILY overactive bladder 10/14/23 02/03/24 History prednisone 50 mg tablet 5 mg PO DAILY 10/14/23 02/03/24 History trazodone 100 mg tablet 100 mg PO HS 10/14/23 02/03/24 History alprazolam 0.25 mg tablet 0.25 mg PO TID Anxiety #90 tabs 11/24/23 02/03/24 Rx gabapentin 400 mg capsule 400 mg PO TID Pain #90 caps 11/24/23 02/03/24 Rx dextromethorphan-guaifenesin 10 10 ml PO Q6H PRN Cough 11/28/23 02/03/24 History mg-100 mg/5 mL oral liquid guaifenesin 400 mg tablet 400 mg PO DAILY #120 tabs 11/28/23 02/03/24 Rx lactulose 10 gram/15 mL oral 20 g PO DAILY PRN Constipation 11/28/23 02/03/24 History solution multivitamin with minerals 1 cap PO DAILY 11/28/23 02/03/24 History sennosides 8.6 mg tablet (senna) 8.6 mg PO DAILY PRN Constipation 11/28/23 02/03/24 History buspirone 7.5 mg tablet 7.5 mg PO TID #90 tabs 01/14/24 02/03/24 Rx escitalopram oxalate 20 mg tablet 20 mg PO DAILY Depression 02/03/24 02/03/24 History (Lexapro) polyethylene glycol 3350 17 gram 17 g PO DAILY PRN Constipation 02/03/24 02/03/24 History oral powder packet New Prescriptions to Start Prescriptions: Allergies Allergy/AdvReac Type Severity Reaction Status Date / Time metronidazole Allergy Unknown I-HIVES Verified 01/20/24 10:53 nitrofurantoin Allergy Unknown Unknown Verified 01/20/24 10:53 [From MACROBID] allergy reaction Exam Data for Last 24 hours Vital signs and Labs for Last 24 Hours: Temp Pulse Resp BP Pulse Ox O2 Del Method O2 Flow Rate 98.0 F 73 16 121/53 L 95 Nasal Cannula 5 02/03/24 15:47 02/03/24 15:47 02/03/24 15:47 02/03/24 15:47 02/03/24 15:01 02/03/24 15:01 02/03/24 15:01 Laboratory Results - last 24 hr 02/03/24 13:03: WBC 14.3 H, RBC 3.98 L, Hgb 10.9 L, Hct 34.1 L, MCV 85.8, MCH 27.3, MCHC 31.8, RDW 16.4, Plt Count 401, MPV 7.9, Neut % (Auto) 81.0 H, Lymph % (Auto) 11.3, [place] % (Auto) 5.9, Eos % (Auto) 1.3, Baso % (Auto) 0.5, Neut # (Auto) 11.5 H, Lymph # (Auto) 1.6, [place] # (Auto) 0.8, Eos # (Auto) 0.2, Baso # (Auto) 0.1, D-Dimer 0.34, Sodium 138, Potassium 4.3, Chloride 103, Carbon Dioxide 32 H, Anion Gap 7.3, BUN 8, Creatinine 0.50 L, Estimated Creat Clear 67, Estimated GFR 121, Est GFR ( Amer) 146, Glucose 103 H, Calcium 9.1, Total Bilirubin 0.3, AST 27, ALT 16, Alkaline Phosphatase 76, Troponin I < 0.01, C-Reactive Protein 187.9 H, NT-Pro-B Natriuret Pep 187 H, Total Protein 6.5, Albumin 3.5, Globulin 3.0, Albumin/Globulin Ratio 1.2, Procalcitonin 0.074 02/03/24 13:10: VBG pH 7.38, VBG pCO2 51.8 H, VBG pO2 43.5 H, VBG HCO3 30.1 H, VBG Total CO2 31.7 H, VBG O2 Saturation 76.0 H, VBG Base Excess 5.0 H, VBG Lactic Acid 1.2 02/03/24 13:15: SARS-CoV-2 (PCR) Not detected, Influenza A Untype (PCR) Not detected, Influenza Type B (PCR) Not detected 02/03/24 14:36: Urine Color Yellow, Urine Appearance Sl cloudy, Urine pH 6.5, Ur Specific [place] 1.020, Urine Protein Negative, Urine Glucose (UA) Negative, Urine Ketones 1+, Urine Blood 1+, Urine Nitrate Positive, Urine Bilirubin Negative, Urine Urobilinogen 0.2, Ur Leukocyte Esterase Trace, Urine RBC Occasional, Urine WBC 3-5, Ur Squamous Epith Cells Occasional, Urine Bacteria 3+ I & O for Last 24 hours: Intake & Output 01/31/24 02/01/24 02/02/24 02/03/24 23:59 23:59 23:59 23:59 Weight 86 kg Constitutional Constitutional: no acute distress, obese, chronically ill appearing and cooperative *Routine HEENT Exam Head: Present normocephalic and atraumatic Eye: Present EOMI, PERRL and normal accommodation ENT: Present mucous membranes moist *Routine Neck Exam Neck: Present supple, full ROM and trachea midline *Routine Respiratory Exam Respiratory: Present prolonged expiratory phase, rhonchi, wheezes, diminished air movement and symmetric chest movement; Absent crackles *Routine Cardiovascular Exam Cardiovascular: Present RRR, Normal S1 and Normal S2 *Routine Abdominal Exam Abdominal: Present soft and normoactive bowel sounds; Absent organomegaly *Routine Rectal Exam Rectal:: deferred *Routine Genitalia Exam Genitalia:: deferred *Routine Extremities Exam Extremities: Present pulses intact and normal capillary refill; Absent cyanosis, clubbing or edema Comments: right leg shortness and lateralization *Routine Skin Exam Skin: Present intact, dry and warm *Routine Neurological Exam Neurological: Present alert, normal reflexes, altered mental status and normal speech Routine Psychiatric Exam Psychiatric: Present normal thought process, cooperative and good judgment Assessment and Plan *Assessment and plan (1) Pneumonia: Status: Acute Qualifiers: Laterality: bilateral Lung location: lower lobe of lung Pneumonia type: due to unspecified organism Qualified Code(s): J18.9 - Pneumonia, unspecified organism Category: Medical Code(s): J18.9 - Pneumonia, unspecified organism (2) Acute and chronic respiratory failure: Status: Acute Category: Medical Code(s): J96.20 - Acute and chronic respiratory failure, unspecified whether with hypoxia or hypercapnia (3) COPD (chronic obstructive pulmonary disease): Status: Acute Qualifiers: COPD type: unspecified COPD Qualified Code(s): J44.9 - Chronic obstru ctive pulmonary disease, unspecified Category: Medical Code(s): J44.9 - Chronic obstructive pulmonary disease, unspecified (4) Anxiety disorder: Status: Acute Qualifiers: Anxiety disorder type: unspecified anxiety disorder Qualified Code(s): F41.9 - Anxiety disorder, unspecified Category: Medical Code(s): F41.9 - Anxiety disorder, unspecified (5) Hypothyroidism: Status: Acute Qualifiers: Hypothyroidism type: unspecified Qualified Code(s): E03.9 - Hypothyroidism, unspecified Category: Medical Code(s): E03.9 - Hypothyroidism, unspecified (6) Schizophrenia: Status: Acute Qualifiers: Schizophrenia type: unspecified Qualified Code(s): F20.9 - Schizophrenia, unspecified Category: Medical Code(s): F20.9 - Schizophrenia, unspecified (7) Hyperlipidemia: Status: Acute Qualifiers: Hyperlipidemia type: unspecified Qualified Code(s): E78.5 - Hyperlipidemia, unspecified Category: Medical Code(s): E78.5 - Hyperlipidemia, unspecified (8) Depression: Status: Acute Qualifiers: Depression Type: unspecified Qualified Code(s): F32.A - Depression, unspecified Category: Medical Code(s): F32.A - Depression, unspecified (9) Tobacco dependence: Status: Chronic Category: Medical Code(s): F17.200 - Nicotine dependence, unspecified, uncomplicated Plan 73-year-old female who resides at a snf who presents with acute on chronic hypoxemic respiratory failure secondary to pneumonia. Discussed case with ER physician, request admission for IV antibiotics and given risk for decompensation. Medicine agreed to admit. Patient's PSI/port score is 94 meir use of her age, female sex, snf resident, altered mental status on arrival. Gives her class IV risk, hospitalization appropriate. Necessitating inpatient management. Problems addressed as follows: Acute on chronic hypoxemic respiratory failure Pneumonia -Chest imaging personally reviewed, concern for bibasilar airspace disease/patchy densities. Continue levofloxacin 750 mg daily. -Initiate DuoNebs every 6 hours scheduled -Continue supplemental oxygen, currently on 5 L, goal saturation greater than 90% -Guaifenesin/dextromethorphan cough medicine. -Sputum culture pending -White cell count elevated at 14. Repeat CBC, CMP, magnesium ordered for the morning. Continue buspirone 7.5 mg 3 times a day for mood Continue Lexapro 20 mg daily for depression Continue MiraLAX daily as needed for constipation Continue alprazolam 0.25 mg 3 times a day for anxiety Continue aspirin 81 mg daily for CAD Continue trazodone 100 mg nightly and Seroquel 250 mg nightly for mood and sleep Continue pantoprazole 40 mg daily for GERD Continue oxybutynin 10 mg daily for overactive bladder Continue levothyroxine 50 mcg daily for hypothyroid Continue gabapentin 4 mg 3 times a day for pain Continue Wellbutrin 150 mg twice daily for mood Full code Regular diet Heparin subcu
[2024-02-03] MEDS: IPRATROPIUM/ALBUTEROL 3 ML NEB IH ×2 (18:18→23:14)
[2024-02-03 18:31] LABS: Troponin I < 0.01 ng/ml (0.00-0.034)
[2024-02-03 19:54] LABS: Troponin I < 0.01 ng/ml (0.00-0.034)
[2024-02-03] MEDS: GABAPENTIN 400MG CAPSULE 400 MG PO (20:14)
[2024-02-03] MEDS: ALPRAZolam 0.25MG TABLET 0.25 MG PO (20:14)
[2024-02-03] MEDS: QUETIAPINE 100MG TABLET 250 MG PO (20:14)
[2024-02-03] MEDS: HEPARIN SODIUM 5,000 UNIT/ML VIAL 5000 UNIT SQ (20:15)
[2024-02-03] MEDS: PATIENT'S OWN HOME MEDICATION (Buspirone 7.5 mg tablet) 7.5 EACH PO (20:16)
[2024-02-03] MEDS: DEXTROMETHORPHAN GUAIFENESIN 10 EACH PO (20:17)
[2024-02-04] VITALS (15 sets, daily range): BP systolic 128–161; BP diastolic 62–79; PULSE 58–84; RESP 16–28; TEMP 36.6–36.8; O2SAT 82–94; BMI 30.2
--- NOTE | 2024-02-04 04:20 | PC.NURSE ---
Pt O2 82%. On assessment, pt is asymptomatic, no respiratory distress. PT has nc in place with 5 L. O2 turned up to 6 L nc, pt O2 came up and sustained 85-88%. RT was called to bedside. RT placed pt on venti mask 15L 50%. Pt O2 90-91% at this time.
--- NOTE | 2024-02-04 06:15 | PC.NURSE ---
Pt continues to require venti mask 15L 50%, tolerating well with sats 90-92%. Pt is confused this AM, only a/o to person. Pt has pulled mask off multiple times since applied and O2 drops to upper 70s quickly on RA. Pt has been incontinent t/o shift. Pt has been cleaned up and new brief applied. Pt refused bath multiple times during shift. Bed alarm on for pt safety. Call light within reach.
[2024-02-04] MEDS: IPRATROPIUM/ALBUTEROL 3 ML NEB IH ×4 (06:30→23:09)
[2024-02-04 07:18] LABS: Chloride 102 mmol/L (98-107); Potassium 3.9 mmoL/L (3.5-5.1); Sodium 137 mmol/L (136-145)
[2024-02-04 07:20] LABS: Basophils # 0.1 K/mm3 (0-0.2); Basophils % 0.6 % (0.1-2.0); Eosinophils % 0.1 % (0.1-12.0); Hematocrit 33.6 % (37.0-47.0); Hemoglobin 10.7 g/dL (12.2-16.2); Lymphocytes # 1.5 K/mm3 (0.7-4.5); Mean Corpuscular HGB Conc 31.9 g/dL (31.8-35.4); Mean Corpuscular Hemoglobin 27.2 pg (27.0-31.2); Mean Corpuscular Volume 85.5 fl (81-99); Mean Platelet Volume 7.6 fl (7.4-10.4); Monocytes % 9.1 % (1.7-9.3); Neutrophils # 8.1 K/mm3 (1.8-7.8); Neutrophils % 76.3 % (37.0-80.0); Platelet Count 410 K/mm3 (142-424); Red Blood Count 3.93 M/mm3 (4.20-5.40); Red Cell Distribution Width 16.4 % (11.5-17.5); White Blood Count 10.6 K/mm3 (4.8-10.8)
[2024-02-04 07:21] LABS: Alanine Aminotransferase 17 U/L (12-78); Albumin Level 3.4 g/dl (3.5-5.0); Albumin/Globulin Ratio 1.1 (1.1-1.8); Alkaline Phosphatase 85 U/L (38-126); Anion Gap 8.9 mEq/L (5-15); Aspartate Amino Transferase 26 U/L (14-36); Blood Urea Nitrogen 9 mg/dl (7-17); Calcium 9.3 mg/dl (8.4-10.2); Carbon Dioxide 30 mmol/L (22.0-30.0); Creatinine Clearance Estimated 66 mL/min (50-200); Estimated Glomerular Filt Rate 98 ml/min (>60); GFR (African American) 118 ML/MIN (>60); Globulin 3.1 g/dL (1.3-3.2); Glucose 118 mg/dl (74-100); Total Protein,Serum 6.5 g/dl (6.3-8.2)
[2024-02-04 07:22] LABS: Magnesium 1.9 mg/dl (1.6-2.3)
[2024-02-04 07:23] LABS: Bilirubin,Total 0.1 mg/dl (0.2-1.3)
--- NOTE | 2024-02-04 07:52 | HMH.PHAINT1 ---
Pharmacy Intervention Comments: HOME MEDICATION LIST VERIFIED VIA FACILITY LIST
[2024-02-04] MEDS: ASPIRIN EC 81MG TABLET 81 MG PO (08:28)
[2024-02-04] MEDS: ALPRAZolam 0.25MG TABLET 0.25 MG PO ×3 (08:28→20:49)
[2024-02-04] MEDS: GABAPENTIN 400MG CAPSULE 400 MG PO ×3 (08:29→20:49)
[2024-02-04] MEDS: guaiFENesin 600 MG TAB.ER.12H PO (08:29)
[2024-02-04] MEDS: BUSPIRONE HCL 5 MG TABLET 7.5 MG PO ×3 (08:29→20:49)
[2024-02-04] MEDS: buPROPion HCl SR 150MG TAB 150 MG PO ×2 (08:29→20:49)
[2024-02-04] MEDS: CITALOPRAM 40MG TABLET 40 MG PO (08:29)
[2024-02-04] MEDS: HEPARIN SODIUM 5,000 UNIT/ML VIAL 5000 UNIT SQ (08:29)
[2024-02-04] MEDS: OXYBUTYNIN 5MG TAB 5 MG PO ×2 (08:30→20:49)
[2024-02-04] MEDS: LACTULOSE 20GM/30ML UDC 20 GM PO (08:30)
[2024-02-04] MEDS: LEVOTHYROXINE 50MCG (0.05MG) TAB 50 MCG PO (08:30)
[2024-02-04] MEDS: LEVOFLOXACIN/D5W 750 MG/150 ML 750 MG/150 ML PIGGYBACK 100 MG IV (11:51)
[2024-02-04] MEDS: FUROSEMIDE 40MG/4ML VIAL 40 MG IV (15:04)
--- NOTE | 2024-02-04 17:10 | P.PN_ITS ---
Subjective *Date: 02/04/24 *Time: 17:10 Interval history: Had hypoxia overnight necessitating increasing oxygen. On morning rounds was on Ventimask 50%. Weaned to 4 L nasal cannula with sats in the low 90s. Denies chest pain or shortness of breath. Cough improving, still mildly productive. Afebrile overnight. Tolerating p.o. intake. Medical Exam Vital signs and Labs for Last 24 Hours: Vital Signs Temp Pulse Pulse Resp BP Pulse Ox O2 Del Method 02/04/24 16:00 80 02/04/24 15:59 97.9 F 78 20 139/79 90 L Nasal Cannula 02/04/24 15:00 Nasal Cannula 02/04/24 13:00 Nasal Cannula 02/04/24 12:00 60 02/04/24 11:32 77 02/04/24 11:32 76 02/04/24 11:32 98.3 F 69 18 134/71 94 L Nasal Cannula 02/04/24 11:00 Nasal Cannula 02/04/24 09:00 Nasal Cannula 02/04/24 08:00 80 02/04/24 07:52 Venturi Mask 02/04/24 07:39 98.2 F 78 20 144/62 H 93 L Venturi Mask 02/04/24 06:28 71 02/04/24 06:28 66 02/04/24 06:28 93 L Venturi Mask 02/04/24 06:27 Venturi Mask 02/04/24 05:00 Venturi Mask 02/04/24 04:00 84 02/04/24 04:00 97.9 F 83 18 150/63 H 91 L Nasal Cannula 02/04/24 03:49 90 L Venturi Mask 02/04/24 03:42 86 L Nasal Cannula 02/04/24 03:36 82 L Nasal Cannula 02/04/24 03:00 Nasal Cannula 02/04/24 01:00 Nasal Cannula 02/04/24 00:00 60 02/04/24 00:00 98 F 58 L 16 161/77 H 94 L 02/03/24 23:14 72 02/03/24 23:14 76 02/03/24 23:00 Nasal Cannula 02/03/24 20:34 Nasal Cannula 02/03/24 20:00 98.5 F 96 H 18 156/70 H 92 L 02/03/24 20:00 72 02/03/24 19:44 92 L Nasal Cannula 02/03/24 18:49 Nasal Cannula 02/03/24 18:20 71 02/03/24 18:20 74 02/03/24 18:20 92 L Nasal Cannula O2 Flow Rate FiO2 02/04/24 16:00 02/04/24 15:59 3 02/04/24 15:00 3 02/04/24 13:00 4 02/04/24 12:00 02/04/24 11:32 02/04/24 11:32 02/04/24 11:32 2 02/04/24 11:00 3 02/04/24 09:00 3 02/04/24 08:00 02/04/24 07:52 15 02/04/24 07:39 02/04/24 06:28 02/04/24 06:28 02/04/24 06:28 15 50 02/04/24 06:27 15 02/04/24 05:00 15 02/04/24 04:00 02/04/24 04:00 02/04/24 03:49 15 50 02/04/24 03:42 6 02/04/24 03:36 5 02/04/24 03:00 5 02/04/24 01:00 5 02/04/24 00:00 02/04/24 00:00 02/03/24 23:14 02/03/24 23:14 02/03/24 23:00 5 02/03/24 20:34 5 02/03/24 20:00 02/03/24 20:00 02/03/24 19:44 5 02/03/24 18:49 5 02/03/24 18:20 02/03/24 18:20 02/03/24 18:20 5 Intake and Output 02/04/24 02/04/24 02/04/24 07:59 15:59 23:59 Intake Total 320 / 440 120 / 440 Output Total 0 / 0 0 / 0 Balance 0 / 440 320 / 440 120 / 440 Intake: Intake, Oral Amount 320 / 440 120 / 440 Output: Output, Urine Amount 0 / 0 0 / 0 Other: Number of Unmeasured Voids 1 2 Number of Urine Attends/Diapers 1 Weight 85.185 kg Patient Weight 02/04/24 23:59 Weight 85.185 kg Laboratory Results - last 24 hr 02/03/24 16:50: Troponin I < 0.01 02/03/24 19:10: Troponin I < 0.01 02/04/24 06:19: WBC 10.6 D, RBC 3.93 L, Hgb 10.7 L, Hct 33.6 L, MCV 85.5, MCH 27.2, MCHC 31.9, RDW 16.4, Plt Count 410, MPV 7.6, Neut % (Auto) 76.3, Lymph % (Auto) 14.0, [place] % (Auto) 9.1, Eos % (Auto) 0.1, Baso % (Auto) 0.6, Neut # (Auto) 8.1 H, Lymph # (Auto) 1.5, [place] # (Auto) 1.0, Eos # (Auto) 0.0, Baso # (Auto) 0.1, Sodium 137, Potassium 3.9, Chloride 102, Carbon Dioxide 30, Anion Gap 8.9, BUN 9, Creatinine 0.60, Estimated Creat Clear 66, Estimated GFR 98, Est GFR ( Amer) 118, Glucose 118 H, Calcium 9.3, Magnesium 1.9, Total Bilirubin 0.1 L, AST 26, ALT 17, Alkaline Phosphatase 85, Total Protein 6.5, Albumin 3.4 L, Globulin 3.1, Albumin/Globulin Ratio 1.1 I & O for Labs for Last 24 Hours: Intake & Output 02/01/24 02/02/24 02/03/24 02/04/24 23:59 23:59 23:59 23:59 Intake Total 1370 / 1370 440 / 440 Output Total 0 / 0 0 / 0 Balance 1370 / 1370 440 / 440 Weight 85.275 kg 85.185 kg Constitutional: Present no acute distress, average body habitus, chronically ill appearing and cooperative Head: Present atraumatic and normocephalic ENT: Present normal exam Respiratory: Present rhonchi, crackles and normal respiratory effort; Absent accessory muscle use or wheezes Cardiac: Present Reg Rate and Rhythm GI: Present soft and normal bowel sounds; Absent distention or tenderness Extremities: Present edema (Trace bilaterally lower leg) Skin: Present intact; Absent erythema Neuro: Present Grossly Intact, alert, awake and moves all extremities Assessment and Plan *Assessment and plan (1) Pneumonia: Status: Acute Qualifiers: Laterality: bilateral Lung location: lower lobe of lung Pneumonia type: due to unspecified organism Qualified Code(s): J18.9 - Pneumonia, unspecified organism Category: Medical Code(s): J18.9 - Pneumonia, unspecified organism (2) Acute and chronic respiratory failure: Status: Acute Category: Medical Code(s): J96.20 - Acute and chronic respiratory failure, unspecified whether with hypoxia or hypercapnia (3) CHF exacerbation: Status: Acute Category: Medical Code(s): I50.9 - Heart failure, unspecified (4) COPD (chronic obstructive pulmonary disease): Status: Acute Qualifiers: COPD type: unspecified COPD Qualified Code(s): J44.9 - Chronic obstructive pulmonary disease, unspecified Category: Medical Code(s): J44.9 - Chronic obstructive pulmonary disease, unspecified (5) Anxiety disorder: Status: Acute Qualifiers: Anxiety disorder type: unspecified anxiety disorder Qualified Code(s): F41.9 - Anxiety disorder, unspecified Category: Medical Code(s): F41.9 - Anxiety disorder, unspecified (6) Hypothyroidism: Status: Acute Qualifiers: Hypothyroidism type: unspecified Qualified Code(s): E03.9 - Hypothyroidism, unspecified Category: Medical Code(s): E03.9 - Hypothyroidism, unspecified (7) Schizophrenia: Status: Acute Qualifiers: Schizophrenia type: unspecified Qualified Code(s): F20.9 - Schizophrenia, unspecified Category: Medical Code(s): F20.9 - Schizophrenia, unspecified (8) Hyperlipidemia: Status: Acute Qualifiers: Hyperlipidemia type: unspecified Qualified Code(s): E78.5 - Hyperlipidemia, unspecified Category: Medical Code(s): E78.5 - Hyperlipidemia, unspecified (9) Depression: Status: Acute Qualifiers: Depression Type: unspecified Qualified Code(s): F32.A - Depression, unspecified Category: Medical Code(s): F32.A - Depression, unspecified (10) Tobacco dependence: Status: Chronic Category: Medical Code(s): F17.200 - Nicotine dependence, unspecified, uncomplicated Plan 73-year-old female who resides at a intermediate who presents with acute on chronic hypoxemic respiratory failure secondary to pneumonia. Discussed case with ER physician, request admission for IV antibiotics and given risk for decompensation. Medicine agreed to admit. Patient's PSI/port score is 94 because of her age, female sex, intermediate resident, altered mental status on arrival. Gives her class IV risk, hospitalization appropriate. Necessitating inpatient management. Continue antibiotics, diurese x 1. Anticipate discharge tomorrow problems addressed as follows: Acute on chronic hypoxemic respiratory failure Pneumonia -Chest imaging personally reviewed, concern for bibasilar airspace disease/patchy densities. Continue levofloxacin 750 mg daily. -Continue DuoNebs every 6 hours scheduled -Continue supplemental oxygen, currently on 4 L, goal saturation greater than 90%. Baseline 3 L, monitor for improvement with diuresis -Guaifenesin/dextromethorphan cough medicine. -Sputum culture pending -White cell count improved to 10 this morning. Kidney function normal with BUN 9, creatinine 0.6. Repeat CBC, CMP, magnesium ordered for the morning. CHF exacerbation -Unsure patient's ejection fraction however given her elevated BNP yesterday of almost 200, increased oxygen requirement with fluids from sepsis bolus, concern for edema. Suspicious for CHF exacerbation. Will diurese x 1 with Lasix 40 mg IV. Monitor for improvement. Echo pending. Continue buspirone 7.5 mg 3 times a day for mood Continue Lexapro 20 mg daily for depression Continue MiraLAX daily as needed for constipation Continue alprazolam 0.25 mg 3 times a day for anxiety Continue aspirin 81 mg daily for CAD Continue trazodone 100 mg nightly and Seroquel 250 mg nightly for mood and sleep Continue pantoprazole 40 mg daily for GERD Continue oxybutynin 10 mg daily for overactive bladder Continue levothyroxine 50 mcg daily for hypothyroid Continue gabapentin 4 mg 3 times a day for pain Continue Wellbutrin 150 mg twice daily for mood Full code Regular diet Heparin subcu
--- NOTE | 2024-02-04 17:19 | CA_ITS ---
APPROVED REPORT EXAM: Comprehensive 2D, Doppler, and color-flow Echocardiogram Dat Instructor: Nelly Monroy RT(R) Ht: 5 ft 7 in Wt: 187lbs BSA: 1.97 BP: 121/53 mmHg Indications: sepsis, pneumonia, CHF, COPD, home O2, GERD, long-term resident, schizophrenia, confusion, SOB, GARNER, HTN, hyperlipidemia, history of smoking, fatigue. Limited windows on this echo secondary to limited patient cooperation(confusion) and lung interference. 2D Dimensions EF AP4 65.90 % GL Strain -20.2 % LV Diastology E Decel Time 150 (160-240 msec) E/A Ratio 0.9 Mitral Valve MV E Max Feliberto. 91.0 (40-130 cm/s) MV A Velocity 98.0 (40-130 cm/s) E/A Ratio 0.93 MV PHT 44.0 ms Left Ventricle The left ventricle is normal size. The left ventricular systolic function is normal. The left ventricular ejection fraction is within the normal range. There is increased LV wall thickness. Diastolic function is indeterminate. Regional wall motion cannot be accurately estimated due to technically difficult study. LVEF is 60%. Right Ventricle The right ventricle is normal size. The right ventricular systolic function is normal. Atria The left atrium size is normal. The right atrium size is normal. The interatrial septum is not well-visualized. Aortic Valve The aortic valve is mildly thickened. There is no aortic valvular stenosis. No aortic regurgitation is present. Mitral Valve The mitral valve leaflets are mildly thickened. No evidence of mitral valve stenosis. Trace mitral regurgitation. Tricuspid Valve The tricuspid valve leaflets are thin and pliable. Trace tricuspid regurgitation. There is insufficient TR jet to estimate RVSP. Pulmonic Valve The pulmonic valve is not well-visualized. Great Vessels The aortic root is not well-visualized. The IVC is not well-visualized. Pericardium There is no pericardial effusion. Other Information Study Quality: Technically Difficult Conclusion Technically difficult study due to poor acoustic windows and lung impedance. Normal biventricular systolic function. No significant valvular stenosis or regurgitation in the visualized valves. Electronically signed by : Mare Soto MD 02/08/2024 23:14:16
--- NOTE | 2024-02-04 18:15 | PC.NURSE ---
Updated family that pt is next on list to be transported from hospital to home.
[2024-02-04] MEDS: PANTOPRAZOLE 40MG TABLET 40 MG PO (20:49)
[2024-02-04] MEDS: TRAZODONE 50MG TABLET 100 MG PO (20:49)
[2024-02-04] MEDS: QUETIAPINE 100MG TABLET 250 MG PO (20:50)
[2024-02-04] MEDS: ACETAMINOPHEN 325MG TAB 650 MG PO (20:54)
[2024-02-04] MEDS: GUAIFENESIN/DEXTROMETHORPHAN 200MG/20MG 10ML UDC 10 ML PO (21:02)
[2024-02-05] VITALS (13 sets, daily range): BP systolic 112–152; BP diastolic 51–96; PULSE 69–107; RESP 17–23; TEMP 36.6–36.9; O2SAT 90–95; BMI 29.8; BMI 29.7
--- NOTE | 2024-02-05 04:24 | INFXCTL.NOTE ---
Patient has slept well this shift. Patient is requiring 5L O2 per NC with o2 sats >90%. Patient c/o of pain x1 this shift medicated per MAR with relief. Bed alarm on for safety.
[2024-02-05] MEDS: IPRATROPIUM/ALBUTEROL 3 ML NEB IH ×4 (06:04→23:04)
[2024-02-05] MEDS: LEVOTHYROXINE 50MCG (0.05MG) TAB 50 MCG PO (06:35)
[2024-02-05 06:36] LABS: Basophils # 0.2 K/mm3 (0-0.2); Basophils % 1.6 % (0.1-2.0); Eosinophils # 0.2 K/mm3 (0.0-0.4); Eosinophils % 1.4 % (0.1-12.0); Hematocrit 37.3 % (37.0-47.0); Hemoglobin 11.6 g/dL (12.2-16.2); Lymphocytes # 3.2 K/mm3 (0.7-4.5); Lymphocytes % 26.7 % (10-50); Mean Corpuscular HGB Conc 31.2 g/dL (31.8-35.4); Mean Corpuscular Volume 86.5 fl (81-99); Mean Platelet Volume 7.8 fl (7.4-10.4); Monocytes # 1.1 K/mm3 (0.1-1.0); Monocytes % 8.7 % (1.7-9.3); Neutrophils # 7.4 K/mm3 (1.8-7.8); Neutrophils % 61.6 % (37.0-80.0); Platelet Count 526 K/mm3 (142-424); Red Blood Count 4.31 M/mm3 (4.20-5.40); Red Cell Distribution Width 16.4 % (11.5-17.5); White Blood Count 12.1 K/mm3 (4.8-10.8)
[2024-02-05 06:38] LABS: Alanine Aminotransferase 20 U/L (12-78); Albumin Level 3.6 g/dl (3.5-5.0); Albumin/Globulin Ratio 1.2 (1.1-1.8); Alkaline Phosphatase 72 U/L (38-126); Anion Gap 7.9 mEq/L (5-15); Aspartate Amino Transferase 27 U/L (14-36); Bilirubin,Total 0.2 mg/dl (0.2-1.3); Blood Urea Nitrogen 13 mg/dl (7-17); Calcium 9.5 mg/dl (8.4-10.2); Carbon Dioxide 36 mmol/L (22.0-30.0); Chloride 99 mmol/L (98-107); Creatinine Clearance Estimated 66 mL/min (50-200); Estimated Glomerular Filt Rate 70 ml/min (>60); GFR (African American) 85 ML/MIN (>60); Globulin 3.1 g/dL (1.3-3.2); Glucose 99 mg/dl (74-100); Magnesium 1.8 mg/dl (1.6-2.3); Potassium 3.9 mmoL/L (3.5-5.1); Sodium 139 mmol/L (136-145); Total Protein,Serum 6.7 g/dl (6.3-8.2)
--- NOTE | 2024-02-05 08:00 | XR_ITS ---
FINAL REPORT CLINICAL HISTORY: continued dyspnea COMPARISON: 02/03/2024 FINDINGS: The heart size is normal. The mediastinum is normal. There is a minimal opacity in the right lung base, which has improved somewhat since the prior exam of February 02, consistent with a resolving pneumonia. There are no pleural effusions. There is no pneumothorax. There is no osseous abnormality. IMPRESSION: Improved right lung base infiltrate since the prior exam of February 02, consistent with a resolving pneumonia. Reviewed, Interpreted and Dictated by Binh Taylor MD Transcribed by Jina Coon Authenticated and [facility]
[2024-02-05] MEDS: GABAPENTIN 400MG CAPSULE 400 MG PO ×3 (09:45→21:47)
[2024-02-05] MEDS: OXYBUTYNIN 5MG TAB 5 MG PO ×2 (09:46→21:48)
[2024-02-05] MEDS: ALPRAZolam 0.25MG TABLET 0.25 MG PO ×3 (09:47→21:46)
[2024-02-05] MEDS: ASPIRIN EC 81MG TABLET 81 MG PO (09:47)
[2024-02-05] MEDS: buPROPion HCl SR 150MG TAB 150 MG PO ×2 (09:47→21:46)
[2024-02-05] MEDS: BUSPIRONE HCL 5 MG TABLET 7.5 MG PO ×3 (09:49→21:47)
[2024-02-05] MEDS: guaiFENesin 600 MG TAB.ER.12H PO (09:49)
[2024-02-05] MEDS: HEPARIN SODIUM 5,000 UNIT/ML VIAL 5000 UNIT SQ ×2 (09:50→21:47)
[2024-02-05] MEDS: FUROSEMIDE 40MG/4ML VIAL 40 MG IV (09:51)
[2024-02-05] MEDS: CITALOPRAM 40MG TABLET 40 MG PO (09:52)
[2024-02-05] MEDS: LACTULOSE 20GM/30ML UDC 20 GM PO (09:52)
[2024-02-05] MEDS: ACETAMINOPHEN 325MG TAB 650 MG PO (09:59)
[2024-02-05] MEDS: FLUTICASONE/UMECLIDIN/VILANTER 100/62.5/25MCG INHALER 1 PUFF IH (10:20)
--- NOTE | 2024-02-05 10:45 | CT_ITS ---
FINAL REPORT TECHNIQUE: The patient was injected with IV contrast. Axial images were obtained through the chest in a PE protocol. 3-D reconstruction images were also performed. Individualized dose reduction techniques using automated exposure control or adjustment of the MA and/or KV according to patient's size were employed. CLINICAL HISTORY: Shortness of breath COMPARISON: 11/25/2022 and 09/28/2021 FINDINGS: Mediastinal vasculature is adequately opacified. No definite pulmonary artery filling defects are identified to suggest PE. There is no aortic dissection. There is no axillary adenopathy. There are small scattered mediastinal lymph nodes measuring up to 1.5 cm in greatest dimension. The heart size is normal. There is no pericardial or pleural effusion. There are patchy airspace opacities in both lower lobes. There are spiculated densities in the right upper lobe measuring up to 10 mm best seen on image 42 of series 3. This is similar in appearance to prior exams from 2022 in 2020 IMPRESSION: No pulmonary embolus or dissection. Stable spiculated masses in the right upper lobe are indeterminate and that given stability 01/2021 are most likely benign. Patchy airspace opacity at the lung bases probably due to acute pneumonia. Reviewed, Interpreted and Dictated by Binh Taylor MD Transcribed by Yancy Weeks Authenticated and [facility]
[2024-02-05] MEDS: LEVOFLOXACIN/D5W 750 MG/150 ML 750 MG/150 ML PIGGYBACK 100 MG IV (10:55)
--- NOTE | 2024-02-05 10:56 | HMH.ITSTN ---
I called and spoke with patient nurse. Patient is getting an Antibiotic at the moment. Asked if we could give it an hour to let the medicine finish before we bring her down for her CT.
[2024-02-05] MEDS: BUDESONIDE 0.5MG/2ML NEB 0.5 MG IH ×2 (11:01→18:04)
[2024-02-05] MEDS: 0.9 % SODIUM CHLORIDE 50 ML VIAL IV (14:06)
[2024-02-05] MEDS: IOPAMIDOL-370 (76%);100ML BOTTLE 70 ML IV (14:07)
[2024-02-05] MEDS: SODIUM CHLORIDE 0.9% 10ML SYR (RAD ONLY) 10 ML IV (14:07)
--- NOTE | 2024-02-05 14:07 | HMH.OTEV ---
OT Inpatient Evaluation Rehab OT IP Evaluation Start: 02/05/24 10:46 Freq: ONCE Status: Active Protocol: Document 02/05/24 13:54 VINCENT (Rec: 02/05/24 14:07 VINCENT [id number]) Rehab OT IP Assessment Subjective History Ms. Sommer is a 73-year-old female with history of COPD on 3 L oxygen at baseline. Also has hypothyroidism, diverticulosis, hypertension, GERD, hyperlipidemia. She resides in a custodial. She presented to the ER via EMS because they were called due to concern for low oxygen and increased confusion from usual. On arrival, EMS said she was satting in the 70s. I treated her with increasing her oxygen to a nonrebreather and brought her to the ER for further evaluation. Received DuoNeb and route. Had some improvement in her mentation. On arrival to the ER, patient is found to have increased oxygen requirement, chest imaging concerning for pneumonia, white cell count of 14,000. Requiring 5 L nasal cannula for appropriate saturations above 90%. Medicine consulted for admission and further management. Initiated on antibiotics with levofloxacin 750 mg x 1. Received sepsis bolus. Started on IV steroids . Responded to breathing treatments. Admitted to medicine. On arrival to the floor, patient is still quite fatigued. Unable to provide significant history. States has been short of breath for years. Appears quite sleepy and falls asleep between questions. No nausea or vomiting. No chest pain. Has significant rhonchorous cough that is productive of yellow phlegm. Patient is a resident at local custodial. Patient used a RW to ambulate and used for transfers. Patient requires assistance for all tasks. Subjective i can sit up. Instructed Patient on proper hand and foot placement to complete bed mobility from supine->sit @ EOB->stand with Mod A x2. Patient demonstrated fair+ dynamic standing balance during session with standing <30 secs prior to requesting to laying back in bed. Patient incontinet of bladder mgt tr this date. Min A for bed mobility of rolling to side to side. Objective Patient Orientation Person,Name,Age,Birthday,Year Right Upper Extremity Gross ROM WFL Left Upper Extremity Gross ROM WFL Bed Mobility bed mobility - supine/sit Assist Level Moderate x 2 (50% assist) Transfer Training Sit/Stand Transfer Assist Level Moderate x 2 (50% assist) Rehab OT IP prob,goals,plan Problems Date of Evaluation: 02/05/24 OT IP Problems Bed Mobility,Transfers,Balance ,Self care,Safety Rehab Potential Rehab Potential Good Equipment Needs Assistive Devices Rolling / Wheeled Walker Plan OT intervention Plan Bed Mobility,Transfers,Balance ,Self care,Safety,Therapeutic Exercise OT Plan Frequency Daily Duration LOS Discharge Goals Bed Mobility Ability Assistance x1 Sit to Stand Chair Transfer Ability Moderate x 1 (50% assist) Chair Transfer Ability Moderate x 1 (50% assist) Chair Transfer Technique Sit to/from Ambulatory Chair Transfer Assistive Devices Rolling Walker Discharge Plan OT Discharge Plan Recommend Patient to continue skilled IP OT services inorder to improve independence with ADLS and fx'l mobility to return back to SNF. Eval Complexity Eval Charge Codes 57411 - Low Complexity PHYSICIAN CERTIFICATION: I certify the specified therapy services for Naida Sommer are required, authorized, and reviewed every 30 days.
--- NOTE | 2024-02-05 15:12 | HMH.PTEV ---
Physical Therapy Evaluation Rehab PT IP Evaluation Start: 02/05/24 10:46 Freq: ONCE Status: Active Protocol: Document 02/05/24 13:59 PAULINO (Rec: 02/05/24 15:12 PHOLUCI [id number]) Subjective/History History History Per H&P: Ms. Sommer is a 73- year-old female with history of COPD on 3 L oxygen at baseline. Also has hypothyroidism, diverticulosis , hypertension, GERD, hyperlipidemia. She resides in a skilled nursing. She presented to the ER via EMS because they were called due to concern for low oxygen and increased confusion from usual . On arrival, EMS said she was satting in the 70s. I treated her with increasing her oxygen to a nonrebreather and brought her to the ER for further evaluation. Received DuoNeb and route. Had some improvement in her mentation. On arrival to the ER, patient is found to have increased oxygen requirement, chest imaging concerning for pneumonia, white cell count of 14,000. Requiring 5 L nasal cannula for appropriate saturations above 90%. Medicine consulted for admission and further management. Initiated on antibiotics with levofloxacin 750 mg x 1. Received sepsis bolus. Started on IV steroids . Responded to breathing treatments. Subjective Subjective Patient is supine in bed upon arrival. Patient is oriented x4, but requires to be asked multiple times to answer. Patient reports that she has been residing in a skilled nursing, where she was ambulatory with a rolling walker. She reports that she did require help with dressing. New diagnosis of cancer in past 12 No months? Rehab PT IP Eval Objective Appearance Patient Behavior Appropriate,Confused Patient Orientation Person,Place,Time,Birthday Difficulty following instructions mild Speech Pattern Clear Ambulation Patient Able to Ambulate No Balance Ability to Arise Able, uses arms to help Sitting Balance Steady, safe Standing Balance Unsteady Dynamic Sitting Balance Ability Fair Dynamic Standing Balance Ability Poor Transfers Bed Transfer Ability Moderate x 2 (50% assist) Sit to Stand Bed Transfer Ability Moderate x 2 (50% assist) Rehab PT IP prob,goals,plan Problems Date of Evaluation: 02/05/24 PT IP Problems Bed Mobility,Transfers,Gait, Balance,Self care,Safety Rehab Potential Rehab Potential Fair Equipment Needs Assistive Devices Rolling / Wheeled Walker Plan PT Intervention Plan Bed Mobility,Transfers,Gait, Balance,Self care,Safety,Other PT Plan Frequency Daily Duration LOS Discharge Goals Bed Transfer Ability Minimal x 1 (25% assist) Sit to Stand Chair Transfer Ability Minimal x 1 (25% assist) Ambulation Distance (feet) 10 Discharge Plan PT Discharge Plan Patient presents for IE. Patient presented below baseline for all functional mobility, transfers, and ambulation. Skilled PT is appropriate for this patient to return to her prior level of function. Upon discharge, the patient may be most appropriate for discharge back to the SNF. Eval Complexity Eval Charge Codes 36265 - High Complexity PHYSICIAN CERTIFICATION: I certify the specified therapy services for Naida Sommer are required, authorized, and reviewed every 30 days.
--- NOTE | 2024-02-05 17:32 | EXP.ACUTE.PN ---
Subjective *Date: 02/05/24 *Time: 17:40 Interval history: Patient on 4 to 5 L overnight. Cough improving. Less productive. No nausea or vomiting. No fever overnight. Kidney function and electrolytes stable today. Tolerating p.o. intake. When she takes a deep breath, she will cough. No diarrhea. Pleasant and interactive today. Medical Exam Vital signs and Labs for Last 24 Hours: Vital Signs Temp Pulse Pulse Resp BP Pulse Ox O2 Del Method 02/05/24 16:54 Nasal Cannula 02/05/24 15:49 97.8 F 90 18 152/71 H 90 L Nasal Cannula 02/05/24 15:00 Nasal Cannula 02/05/24 12:56 Nasal Cannula 02/05/24 12:00 85 02/05/24 11:19 97.8 F 107 H 22 142/64 H 90 L Nasal Cannula 02/05/24 11:02 80 02/05/24 11:02 78 02/05/24 11:02 92 L Nasal Cannula 02/05/24 11:00 Nasal Cannula 02/05/24 09:00 Nasal Cannula 02/05/24 08:00 Nasal Cannula 02/05/24 08:00 75 02/05/24 08:00 98.0 F 78 18 121/51 L 90 L Nasal Cannula 02/05/24 07:00 Nasal Cannula 02/05/24 06:05 72 02/05/24 06:05 69 02/05/24 06:05 90 L Nasal Cannula 02/05/24 05:00 Nasal Cannula 02/05/24 04:00 77 02/05/24 04:00 98.3 F 95 H 20 121/96 H 92 L Nasal Cannula 02/05/24 03:00 Nasal Cannula 02/05/24 01:00 Nasal Cannula 02/05/24 00:00 72 02/05/24 00:00 98.2 F 69 17 112/60 95 Room Air 02/04/24 23:09 70 02/04/24 23:09 75 02/04/24 23:00 Nasal Cannula 02/04/24 21:00 Nasal Cannula 02/04/24 20:00 84 02/04/24 20:00 98.1 F 81 28 H 128/74 89 L Nasal Cannula 02/04/24 20:00 Nasal Cannula 02/04/24 18:41 76 02/04/24 18:41 82 02/04/24 18:41 90 L Nasal Cannula 02/04/24 18:40 Nasal Cannula O2 Flow Rate 02/05/24 16:54 4 02/05/24 15:49 4 02/05/24 15:00 4 02/05/24 12:56 4 02/05/24 12:00 02/05/24 11:19 4 02/05/24 11:02 02/05/24 11:02 02/05/24 11:02 4 02/05/24 11:00 4 02/05/24 09:00 4 02/05/24 08:00 4 02/05/24 08:00 02/05/24 08:00 5 02/05/24 07:00 5 02/05/24 06:05 02/05/24 06:05 02/05/24 06:05 5 02/05/24 05:00 5 02/05/24 04:00 02/05/24 04:00 5 02/05/24 03:00 5 02/05/24 01:00 5 02/05/24 00:00 02/05/24 00:00 3 02/04/24 23:09 02/04/24 23:09 02/04/24 23:00 5 02/04/24 21:00 5 02/04/24 20:00 02/04/24 20:00 5 02/04/24 20:00 5 02/04/24 18:41 02/04/24 18:41 02/04/24 18:41 3 02/04/24 18:40 4 Intake and Output 02/05/24 02/05/24 02/05/24 07:59 15:59 23:59 Intake Total 566 / 716 150 / 716 Output Total 200 / 200 Balance 366 / 516 150 / 516 Intake: Intake, Oral Amount 566 / 566 Intake, Total IV Amount 150 / 150 Levofloxacin/D5w 750 mg/150 ml 150 / 150 750 mg In 150 ml @ 100 mls/hr IV Q24H [facility] Rx#:[id number] Output: Output, Urine Amount 200 / 200 Other: Number of Unmeasured Voids 1 Weight 84.323 kg 84 kg Patient Weight 02/05/24 23:59 Weight 84 kg Laboratory Results - last 24 hr 02/05/24 06:00: WBC 12.1 H, RBC 4.31, Hgb 11.6 L, Hct 37.3, MCV 86.5, MCH 27.0, MCHC 31.2 L, RDW 16.4, Plt Count 526 H D, MPV 7.8, Neut % (Auto) 61.6, Lymph % (Auto) 26.7, Ward % (Auto) 8.7, Eos % (Auto) 1.4, Baso % (Auto) 1.6, Neut # (Auto) 7.4, Lymph # (Auto) 3.2, Ward # (Auto) 1.1 H, Eos # (Auto) 0.2, Baso # (Auto) 0.2, Sodium 139, Potassium 3.9, Chloride 99, Carbon Dioxide 36 H, Anion Gap 7.9, BUN 13 D, Creatinine 0.80 D, Estimated Creat Clear 66, Estimated GFR 70, Est GFR ( Amer) 85 D, Glucose 99, Calcium 9.5, Magnesium 1.8, Total Bilirubin 0.2, AST 27, ALT 20, Alkaline Phosphatase 72, Total Protein 6.7, Albumin 3.6, Globulin 3.1, Albumin/Globulin Ratio 1.2 I & O for Labs for Last 24 Hours: Intake & Output 02/02/24 02/03/24 02/04/24 02/05/24 23:59 23:59 23:59 23:59 Intake Total 1370 / 1370 640 / 640 716 / 716 Output Total 0 / 0 0 / 0 200 / 200 Balance 1370 / 1370 640 / 640 516 / 516 Weight 85.275 kg 85.185 kg 84 kg Constitutional: Present no acute distress, average body habitus, chronically ill appearing and cooperative Head: Present atraumatic and normocephalic ENT: Present normal exam Respiratory: Present rhonchi, crackles and normal respiratory effort; Absent accessory muscle use or wheezes Cardiac: Present Reg Rate and Rhythm GI: Present soft and normal bowel sounds; Absent distention or tenderness Extremities: Present edema (Trace bilaterally lower leg) Skin: Present intact; Absent erythema Neuro: Present Grossly Intact, alert, awake and moves all extremities Assessment and Plan *Assessment and plan (1) Pneumonia: Status: Acute Qualifiers: Laterality: bilateral Lung location: lower lobe of lung Pneumonia type: due to unspecified organism Qualified Code(s): J18.9 - Pneumonia, unspecified organism Category: Medical Code(s): J18.9 - Pneumonia, unspecified organism (2) Acute and chronic respiratory failure: Status: Acute Category: Medical Code(s): J96.20 - Acute and chronic respiratory failure, unspecified whether with hypoxia or hypercapnia (3) CHF exacerbation: Status: Acute Category: Medical Code(s): I50.9 - Heart failure, unspecified (4) COPD (chronic obstructive pulmonary disease): Status: Acute Qualifiers: COPD type: unspecified COPD Qualified Code(s): J44.9 - Chronic obstructive pulmonary disease, unspecified Category: Medical Code(s): J44.9 - Chronic obstructive pulmonary disease, unspecified (5) Anxiety disorder: Status: Acute Qualifiers: Anxiety disorder type: unspecified anxiety disorder Qualified Code(s): F41.9 - Anxiety disorder, unspecified Category: Medical Code(s): F41.9 - Anxiety disorder, unspecified (6) Hypothyroidism: Status: Acute Qualifiers: Hypothyroidism type: unspecified Qualified Code(s): E03.9 - Hypothyroidism, unspecified Category: Medical Code(s): E03.9 - Hypothyroidism, unspecified (7) Schizophrenia: Status: Acute Qualifiers: Schizophrenia type: unspecified Qualified Code(s): F20.9 - Schizophrenia, unspecified Category: Medical Code(s): F20.9 - Schizophrenia, unspecified (8) Hyperlipidemia: Status: Acute Qualifiers: Hyperlipidemia type: unspecified Qualified Code(s): E78.5 - Hyperlipidemia, unspecified Category: Medical Code(s): E78.5 - Hyperlipidemia, unspecified (9) Depression: Status: Acute Qualifiers: Depression Type: unspecified Qualified Code(s): F32.A - Depression, unspecified Category: Medical Code(s): F32.A - Depression, unspecified (10) Tobacco dependence: Status: Chronic Category: Medical Code(s): F17.200 - Nicotine dependence, unspecified, uncomplicated Plan 73-year-old female who resides at a senior care who presents with acute on chronic hypoxemic respiratory failure secondary to pneumonia. Discussed case with ER physician, request admission for IV antibiotics and given risk for decompensation. Medicine agreed to admit. Patient's PSI/port score is 94 because of her age, female sex, senior care resident, altered mental status on arrival. Gives her class IV risk, hospitalization appropriate. Necessitating inpatient management. Continue antibiotics, diurese x 1 again today. Anticipate discharge tomorrow if able to consistently be on 4 L or less. Problems addressed as follows: Acute on chronic hypoxemic respiratory failure Pneumonia -CTA of the chest obtained today, personally reviewed. No thrombi or PEs. Does have spiculated lesion that stable and been present on previous imaging with no change in size. Has basilar airspace disease concerning for pneumonia. Continue levofloxacin 750 mg daily. -Continue DuoNebs every 6 hours scheduled -Continue supplemental oxygen, currently on 4 L, goal saturation greater than 90%. Diuresing again x 1 today with Lasix 40 mg IV -Guaifenesin/dextromethorphan cough medicine. -Sputum culture pending -White cell count 12.1. Repeat CBC, CMP, magnesium ordered for the morning. Kidney function normal with BUN 13, creatinine 0.8. Electrolytes stable with sodium 139, potassium 3.9. CHF exacerbation -Unsure patient's ejection fraction however given her elevated BNP yesterday of almost 200, increased oxygen requirement with fluids from sepsis bolus, concern for edema. Suspicious for CHF exacerbation. Will diurese x 1 with Lasix 40 mg IV. Monitor for improvement. Echo pending. Continue buspirone 7.5 mg 3 times a day for mood Continue Lexapro 20 mg daily for depression Continue MiraLAX daily as needed for constipation Continue alprazolam 0.25 mg 3 times a day for anxiety Continue aspirin 81 mg daily for CAD Continue trazodone 100 mg nightly and Seroquel 250 mg nightly for mood and sleep Continue pantoprazole 40 mg daily for GERD Continue oxybutynin 10 mg daily for overactive bladder Continue levothyroxine 50 mcg daily for hypothyroid Continue gabapentin 4 mg 3 times a day for pain Continue Wellbutrin 150 mg twice daily for mood Full code Regular diet Heparin subcu
--- NOTE | 2024-02-05 18:10 | PC.NURSE ---
Pt is A&O x3 with periods of confusion. She has remained on 4L O2 NC this shift. O2 sats 88% to lower 90s. VS have remained stable. PT/OT assessed pt today. SHe has voided per bedpan and incontinent brief. No BM this shift. Call light within reach. Safety measures in place.
[2024-02-05] MEDS: PANTOPRAZOLE 40MG TABLET 40 MG PO (21:47)
[2024-02-05] MEDS: QUETIAPINE 100MG TABLET 250 MG PO (21:48)
[2024-02-05] MEDS: TRAZODONE 50MG TABLET 100 MG PO (21:48)
[2024-02-05] MEDS: GUAIFENESIN/DEXTROMETHORPHAN 200MG/20MG 10ML UDC 10 ML PO (21:49)
[2024-02-06] VITALS: BP 136/66; PULSE 80; RESP 19; TEMP 36.4; O2SAT 93
[2024-02-06 04:00] VITALS: BP 120/49; PULSE 80; RESP 22; TEMP 36.7; O2SAT 94; BMI 29.7
--- NOTE | 2024-02-06 04:13 | PC.NURSE ---
Patient has rested well this shift. No acute changes noted. Patient remains on 4lnc sats maintaining at 90-93%. Patient has been incontinent this shift, changed as needed. Turned and repositioned every two hours. Patient took night medications whole with water with no complications. Patient is alert to name, confused at times with situation and place. Call guzman, personal belongings, water pitcher and bedside table all with in reach. Plan of care continues.
[2024-02-06] MEDS: LEVOTHYROXINE 50MCG (0.05MG) TAB 50 MCG PO (06:05)
[2024-02-06 06:27] LABS: Basophils # 0.3 K/mm3 (0-0.2); Basophils % 1.9 % (0.1-2.0); Eosinophils # 0.4 K/mm3 (0.0-0.4); Eosinophils % 2.7 % (0.1-12.0); Hemoglobin 12.6 g/dL (12.2-16.2); Lymphocytes # 3.5 K/mm3 (0.7-4.5); Lymphocytes % 25.5 % (10-50); Mean Corpuscular HGB Conc 31.5 g/dL (31.8-35.4); Mean Corpuscular Hemoglobin 26.8 pg (27.0-31.2); Mean Corpuscular Volume 85.1 fl (81-99); Mean Platelet Volume 7.7 fl (7.4-10.4); Monocytes # 1.1 K/mm3 (0.1-1.0); Monocytes % 8.3 % (1.7-9.3); Neutrophils # 8.5 K/mm3 (1.8-7.8); Neutrophils % 61.6 % (37.0-80.0); Platelet Count 549 K/mm3 (142-424); Red Cell Distribution Width 16.6 % (11.5-17.5); White Blood Count 13.8 K/mm3 (4.8-10.8)
[2024-02-06 06:37] LABS: Alanine Aminotransferase 19 U/L (12-78); Albumin Level 3.6 g/dl (3.5-5.0); Albumin/Globulin Ratio 1.1 (1.1-1.8); Alkaline Phosphatase 77 U/L (38-126); Anion Gap 10.2 mEq/L (5-15); Aspartate Amino Transferase 24 U/L (14-36); Bilirubin,Total 0.2 mg/dl (0.2-1.3); Blood Urea Nitrogen 11 mg/dl (7-17); Calcium 9.7 mg/dl (8.4-10.2); Carbon Dioxide 32 mmol/L (22.0-30.0); Chloride 100 mmol/L (98-107); Creatinine Clearance Estimated 65 mL/min (50-200); Estimated Glomerular Filt Rate 70 ml/min (>60); GFR (African American) 85 ML/MIN (>60); Globulin 3.2 g/dL (1.3-3.2); Glucose 115 mg/dl (74-100); Magnesium 1.7 mg/dl (1.6-2.3); Potassium 3.2 mmoL/L (3.5-5.1); Sodium 139 mmol/L (136-145); Total Protein,Serum 6.8 g/dl (6.3-8.2)
[2024-02-06 06:41] VITALS: PULSE 80; O2SAT 91
[2024-02-06] MEDS: BUDESONIDE 0.5MG/2ML NEB 0.5 MG IH (06:41)
[2024-02-06] MEDS: IPRATROPIUM/ALBUTEROL 3 ML NEB IH ×2 (06:41→13:02)
[2024-02-06] MEDS: FLUTICASONE/UMECLIDIN/VILANTER 100/62.5/25MCG INHALER 1 PUFF IH (06:41)
[2024-02-06 08:00] VITALS: BP 125/59; PULSE 90; PULSE 97; RESP 16; TEMP 36.9; O2SAT 90
--- NOTE | 2024-02-06 08:16 | P.DS_ITS ---
General Admission date:: 02/03/24 Discharge date: 02/06/24 HPI HPI HPI: Ms. Sommer is a 73-year-old female with history of COPD on 3 L oxygen at baseline. Also has hypothyroidism, diverticulosis, hypertension, GERD, hyperlipidemia. She resides in a halfway. She presented to the ER via EMS because they were called due to concern for low oxygen and increased confusion from usual. On arrival, EMS said she was satting in the 70s. I treated her with increasing her oxygen to a nonrebreather and brought her to the ER for further evaluation. Received DuoNeb and route. Had some improvement in her mentation. On arrival to the ER, patient is found to have increased oxygen requirement, chest imaging concerning for pneumonia, white cell count of 14,000. Requiring 5 L nasal cannula for appropriate saturations above 90%. Medicine consulted for admission and further management. Initiated on antibiotics with levofloxacin 750 mg x 1. Received sepsis bolus. Started on IV steroids. Responded to breathing treatments. Admitted to medicine. On arrival to the floor, patient is still quite fatigued. Unable to provide significant history. States has been short of breath for years. Appears quite sleepy and falls asleep between questions. No nausea or vomiting. No chest pain. Has significant rhonchorous cough that is productive of yellow phlegm. Hospital Course Hospital Course Hospital Course: 73-year-old female who resides at a halfway who presents with acute on chronic hypoxemic respiratory failure secondary to pneumonia. Discussed case with ER physician, request admission for IV antibiotics and given risk for decompensation. Medicine agreed to admit. Patient's PSI/port score is 94 because of her age, female sex, halfway resident, altered mental status on arrival. Gives her class IV risk, hospitalization appropriate. Necessitating inpatient management. Treated with antibiotics. Patient stable during admission. Oxygen requirement of 4 L consistently for over 48 hours. Clinically improved to the point she can discharge back to her nursing facility to complete antibiotics. Tolerating p.o. intake. Problems addressed as follows: Acute on chronic hypoxemic respiratory failure Pneumonia CHF exacerbation -CTA of the chest obtained today, personally reviewed. No thrombi or PEs. Does have spiculated lesion that stable and been present on previous imaging with no change in size. Has basilar airspace disease concerning for pneumonia. Continue levofloxacin 750 mg daily, transition to oral to complete 7 days total. Recommend continuing DuoNebs every 6 hours scheduled. Increased daily maintenance inhaler to Trelegy 100. Continues to require supplemental oxygen, continue at 4 L during the day, may need to increase to 5 L during the night for goal sats 88 to 95%. White cell count stable. Recommend repeat CBC, CMP, magnesium in 1 week. Kidney function is normal at this time. Continue cough medicine per halfway regimen. Concern for component of CHF/volume to her cough and shortness of breath. Has been diuresing during admission. Will continue diuretics daily for 1 additional week. Continue buspirone 7.5 mg 3 times a day for mood Continue Lexapro 20 mg daily for depression Continue MiraLAX daily as needed for constipation Continue alprazolam 0.25 mg 3 times a day for anxiety Continue aspirin 81 mg daily for CAD Continue trazodone 100 mg nightly and Seroquel 250 mg nightly for mood and sleep Continue pantoprazole 40 mg daily for GERD Continue oxybutynin 10 mg daily for overactive bladder Continue levothyroxine 50 mcg daily for hypothyroid Continue gabapentin 4 mg 3 times a day for pain Continue Wellbutrin 150 mg twice daily for mood Exam Data for Last 24 hours Vital signs and Labs for Last 24 Hours: Temp Pulse Resp BP Pulse Ox O2 Del Method O2 Flow Rate 98.0 F 80 22 120/49 L 91 L Nasal Cannula 4 02/06/24 04:00 02/06/24 06:41 02/06/24 04:00 02/06/24 04:00 02/06/24 06:41 02/06/24 07:33 02/06/24 07:33 FiO2 50 02/04/24 06:28 Laboratory Results - last 24 hr 02/06/24 05:48: WBC 13.8 H, RBC 4.70, Hgb 12.6, Hct 40.0, MCV 85.1, MCH 26.8 L, MCHC 31.5 L, RDW 16.6, Plt Count 549 H, MPV 7.7, Neut % (Auto) 61.6, Lymph % (Auto) 25.5, Routt % (Auto) 8.3, Eos % (Auto) 2.7, Baso % (Auto) 1.9, Neut # (Auto) 8.5 H, Lymph # (Auto) 3.5, Routt # (Auto) 1.1 H, Eos # (Auto) 0.4, Baso # (Auto) 0.3 H, Sodium 139, Potassium 3.2 L, Chloride 100, Carbon Dioxide 32 H, Anion Gap 10.2, BUN 11, Creatinine 0.80, Estimated Creat Clear 65, Estimated GFR 70, Est GFR ( Amer) 85, Glucose 115 H, Calcium 9.7, Magnesium 1.7, Total Bilirubin 0.2, AST 24, ALT 19, Alkaline Phosphatase 77, Total Protein 6.8, Albu min 3.6, Globulin 3.2, Albumin/Globulin Ratio 1.1 I & O for Last 24 hours: Intake & Output 02/03/24 02/04/24 02/05/24 02/06/24 23:59 23:59 23:59 23:59 Intake Total 1370 / 1370 640 / 640 938 / 1058 480 / 480 Output Total 0 / 0 0 / 0 200 / 200 0 / 0 Balance 1370 / 1370 640 / 640 738 / 858 480 / 480 Weight 85.275 kg 85.185 kg 84 kg 84 kg Microbiology Reports for the Last 24 Hours: Microbiology 02/03/24 17:10 Sputum - Expectorated Sputum Gram Stain - Final 02/03/24 17:10 Sputum - Expectorated Sputum Sputum Culture - Preliminary 02/03/24 13:03 Blood Blood Culture - Preliminary Constitutional Constitutional: no acute distress, average body habitus, chronically ill appearing and cooperative *Routine HEENT Exam Head: Present normocephalic Eye: Present PERRL ENT: Present mucous membranes moist *Routine Neck Exam Neck: Present full ROM Routine Chest/Breast/Axilla Exam Chest wall: Absent tenderness Breast: Absent tenderness Axillae: Absent swelling or erythema *Routine Respiratory Exam Respiratory: Present rhonchi, crackles (Bilateral bases), able to speak in complete sentences and symmetric chest movement; Absent accessory muscle use, decreased breath sounds, stridor or wheezes *Routine Cardiovascular Exam Cardiovascular: Present RRR *Routine Abdominal Exam Abdominal: Present soft; Absent tenderness *Routine Rectal Exam Patient deferred: visual exam *Routine Exam Patient deferred: external exam *Routine Extremities Exam Extremities: Absent clubbing or edema Comments: Legs equal length, surgical scar from previous hip fracture on right hip Routine Back/Spine/Pelvis Exam Back/Spine: Present full ROM Pelvis: Absent buttock tenderness, pain with lateral compression of the pelvis, sacral swelling or sacral tenderness *Routine Skin Exam Skin: Present intact, warm and normal turgor *Routine Neurological Exam Neurological: Present alert, moving all extremities, normal speech and tremors; Absent altered mental status Comments: Baseline mentation Routine Psychiatric Exam Psychiatric: Present normal affect Detailed Neurological Exam: Coma Scale Coma scale eye opening: Spontaneous Coma scale motor response: Obeys commands Coma scale verbal response: Oriented Coma scale total: 15 Results Data Completed and Pending Labs on day of discharge: Labs from last 24 hours 02/06/24 05:48 WBC 13.8 H RBC 4.70 Hgb 12.6 Hct 40.0 MCV 85.1 MCH 26.8 L MCHC 31.5 L RDW 16.6 Plt Count 549 H MPV 7.7 Neut % (Auto) 61.6 Lymph % (Auto) 25.5 Routt % (Auto) 8.3 Eos % (Auto) 2.7 Baso % (Auto) 1.9 Neut # (Auto) 8.5 H Lymph # (Auto) 3.5 Routt # (Auto) 1.1 H Eos # (Auto) 0.4 Baso # (Auto) 0.3 H Sodium 139 Potassium 3.2 L Chloride 100 Carbon Dioxide 32 H Anion Gap 10.2 BUN 11 Creatinine 0.80 Estimated Creat Clear 65 Estimated GFR 70 Est GFR ( Amer) 85 Glucose 115 H Calcium 9.7 Magnesium 1.7 Total Bilirubin 0.2 AST 24 ALT 19 Alkaline Phosphatase 77 Total Protein 6.8 Albumin 3.6 Globulin 3.2 Albumin/Globulin Ratio 1.1 Preliminary micro results at discharge 02/03/24 17:10 Sputum Culture - Preliminary Sputum - Expectorated Sputum 02/03/24 13:03 Blood Culture - Preliminary Blood DS: Diagnosis Discharge Diagnosis (1) Pneumonia: Status: Acute Code(s): J18.9 - Pneumonia, unspecified organism Qualifiers: Laterality: bilateral Lung location: lower lobe of lung Pneumonia type: due to unspecified organism Qualified Code(s): J18.9 - Pneumonia, unspecified organism (2) Acute and chronic respiratory failure: Status: Acute Code(s): J96.20 - Acute and chronic respiratory failure, unspecified whether with hypoxia or hypercapnia (3) CHF exacerbation: Status: Acute Code(s): I50.9 - Heart failure, unspecified (4) COPD (chronic obstructive pulmonary disease): Status: Acute Code(s): J44.9 - Chronic obstructive pulmonary disease, unspecified Qualifiers: COPD type: unspecified COPD Qualified Code(s): J44.9 - Chronic obstructive pulmonary disease, unspecified (5) Anxiety disorder: Status: Acute Code(s): F41.9 - Anxiety disorder, unspecified Qualifiers: Anxiety disorder type: unspecified anxiety disorder Qualified Code(s): F41.9 - Anxiety disorder, unspecified (6) Hypothyroidism: Status: Acute Code(s): E03.9 - Hypothyroidism, unspecified Qualifiers: Hypothyroidism type: unspecified Qualified Code(s): E03.9 - Hypothyroidism, unspecified (7) Schizophrenia: Status: Acute Code(s): F20.9 - Schizophrenia, unspecified Qualifiers: Schizophrenia type: unspecified Qualified Code(s): F20.9 - Schizophrenia, unspecified (8) Hyperlipidemia: Status: Acute Code(s): E78.5 - Hyperlipidemia, unspecified Qualifiers: Hyperlipidemia type: unspecified Qualified Code(s): E78.5 - Hyperlipidemia, unspecified (9) Depression: Status: Acute Code(s): F32.A - Depression, unspecified Qualifiers: Depression Type: unspecified Qualified Code(s): F32.A - Depression, unspecified (10) Tobacco dependence: Status: Chronic Code(s): F17.200 - Nicotine dependence, unspecified, uncomplicated Meds Home Medications and Allergies Home Medications Medication Instructions Recorded Confirmed Type albuterol sulfate 90 mcg/actuation 2 puff inhalation Q4HP PRN 10/15/22 02/03/24 Rx aerosol inhaler (ProAir HFA) Shortness Of Breath Or Wheezing #8.5 grams aspirin 81 mg tablet,delayed 81 mg PO DAILY Heart disease #90 10/15/22 02/03/24 Rx release tabs cholecalciferol (vitamin D3) 25 25 mcg PO DAILY Supplement #90 caps 10/15/22 02/03/24 Rx mcg (1,000 unit) capsule pravastatin 20 mg tablet 20 mg PO HS Cholesterol #90 tabs 10/15/22 02/03/24 Rx acetaminophen 500 mg tablet 500 mg PO TID Pain 12/20/22 02/03/24 History levothyroxine 50 mcg tablet 50 mcg PO DAILY thyroid 03/28/23 02/03/24 History melatonin 3 mg tablet 3 mg PO HS SLEEP 03/28/23 02/03/24 History pantoprazole 40 mg tablet,delayed 40 mg PO DAILY Acid reflux 03/28/23 02/03/24 History release quetiapine 100 mg tablet 250 mg PO HS MOOD 03/28/23 02/03/24 History bupropion HCl 150 mg tablet,12 hr 150 mg PO BID #60 ea 05/29/23 02/03/24 Rx sustained-release (Wellbutrin SR) metoclopramide HCl 5 mg tablet 5 mg PO TID #90 tabs 07/10/23 02/04/24 Rx (Reglan) cetirizine 10 mg tablet 10 mg PO DAILY 09/08/23 02/03/24 History oxybutynin chloride 5 mg tablet 10 mg PO DAILY overactive bladder 10/14/23 02/03/24 History trazodone 100 mg tablet 100 mg PO HS 10/14/23 02/03/24 History alprazolam 0.25 mg tablet 0.25 mg PO TID Anxiety #90 tabs 11/24/23 02/03/24 Rx gabapentin 400 mg capsule 400 mg PO TID Pain #90 caps 11/24/23 02/03/24 Rx dextromethorphan-guaifenesin 10 10 ml PO Q6H PRN Cough 11/28/23 02/03/24 History mg-100 mg/5 mL oral liquid guaifenesin 400 mg tablet 400 mg PO DAILY #120 tabs 11/28/23 02/03/24 Rx lactulose 10 gram/15 mL oral 30 ml PO DAILY PRN Constipation 11/28/23 02/04/24 History solution multivitamin with minerals 1 cap PO DAILY 11/28/23 02/03/24 History sennosides 8.6 mg tablet (senna) 8.6 mg PO DAILY PRN Constipation 11/28/23 02/03/24 History buspirone 7.5 mg tablet 7.5 mg PO TID #90 tabs 01/14/24 02/03/24 Rx escitalopram oxalate 20 mg tablet 20 mg PO DAILY Depression 02/03/24 02/03/24 History (Lexapro) polyethylene glycol 3350 17 gram 17 g PO DAILY PRN Constipation 02/03/24 02/03/24 History oral powder packet prednisone 5 mg tablet 5 mg PO DAILY 02/04/24 02/04/24 History fluticasone fur. 100 mcg-umeclid 1 inh inhalation DAILY 30 days #1 02/06/24 Rx 62.5 mcg-vilant 25 mcg ea inhalat.powder (Trelegy Ellipta) ipratropium 0.5 mg-albuterol 3 mg 3 ml inhalation Q6H shortness of 02/06/24 02/03/24 Rx (2.5 mg base)/3 mL nebulization breath 30 days #0 mL soln levofloxacin 750 mg tablet 750 mg PO DAILY 3 days #3 tabs 02/06/24 Rx New Prescriptions to Start Prescriptions: [id number] [Trelegy Ellipta] Frankie Foley levofloxacin Frankie Foley Allergies Allergy/AdvReac Type Severity Reaction Status Date / Time metronidazole Allergy Unknown I-HIVES Verified 01/20/24 10:53 nitrofurantoin Allergy Unknown Unknown Verified 01/20/24 10:53 [From MACROBID] allergy reaction Discharge Plan Disposition Patient Disposition: er Intermediate Care Fac Condition: Fair Discharge Order Discharge Orders: Discharge Order (Routine); Ordered 02/06/24 Ordered By: Frankie Foley Follow up Plan Prescriptions/Medication Reconciliation: New Trelegy Ellipta 100-62.5-25 mcg Blister With Device 1 inh inhalation DAILY 30 Days Qty: 1 0RF levofloxacin 750 mg tablet 750 mg PO DAILY 3 Days Qty: 3 0RF Continued bupropion HCl [Wellbutrin SR] 150 mg tablet sustained-release 12 hr 150 mg PO BID Qty: 60 2RF Rx Instructions: 150mg daily x 5 days then 150mg twice daily Patient no longer taking metoclopramide HCl [Reglan] 5 mg tablet 5 mg PO TID Qty: 90 3RF Rx Instructions: administer 30 minutes before meals alprazolam 0.25 mg tablet 0.25 mg PO TID Qty: 90 3RF gabapentin 400 mg capsule 400 mg PO TID Qty: 90 3RF guaifenesin 400 mg tablet 400 mg PO DAILY Qty: 120 0RF lactulose 10 gram/15 mL solution 30 ml PO DAILY PRN (Reason: Constipation) multivitamin with minerals Capsule 1 cap PO DAILY dextromethorphan-guaifenesin 10-100 mg/5 mL liquid 10 ml PO Q6H PRN (Reason: Cough) sennosides [senna] 8.6 mg tablet 8.6 mg PO DAILY PRN (Reason: Constipation) buspirone 7.5 mg tablet 7.5 mg PO TID Qty: 90 3RF aspirin 81 mg tablet,delayed release (DR/EC) 81 mg PO DAILY Qty: 90 0RF pravastatin 20 mg tablet 20 mg PO HS Qty: 90 0RF albuterol sulfate [ProAir HFA] 90 mcg/actuation HFA aerosol inhaler 2 puff inhalation Q4HP PRN (Reason: Shortness Of Breath Or Wheezing) Qty: 8.5 0RF cholecalciferol (vitamin D3) 25 mcg (1,000 unit) capsule 25 mcg PO DAILY Qty: 90 0RF melatonin 3 mg Tablet 3 mg PO HS quetiapine 100 mg tablet 250 mg PO HS levothyroxine 50 mcg tablet 50 mcg PO DAILY pantoprazole 40 MG tablet,delayed release (DR/EC) 40 mg PO DAILY cetirizine 10 mg Tablet 10 mg PO DAILY acetaminophen 500 mg Tablet 500 mg PO TID oxybutynin chloride 5 mg tablet 10 mg PO DAILY trazodone 100 mg Tablet 100 mg PO HS escitalopram oxalate [Lexapro] 20 mg Tablet 20 mg PO DAILY polyethylene glycol 3350 17 gram Powder In Packet 17 g PO DAILY PRN (Reason: Constipation) prednisone 5 mg Tablet 5 mg PO DAILY Changed ipratropium-albuterol 0.5 mg-3 mg(2.5 mg base)/3 mL Solution For Nebulization 3 ml INHALATION Q6H 30 Days Qty: 0 0RF Discontinued budesonide-formoterol 160-4.5 mcg/actuation HFA aerosol inhaler 2 inh inhalation BID Qty: 10.2 3RF Problem Reconciliation Problems Reviewed?: Yes Patient Discharge Instructions ACTIVITY: Continue current activity DIET: continue same diet Patient Instructions: DI for Pneumonia -- Adult, DI for Sepsis -- Adult Providers Primary Care Provider: Provider,Referral Admit Provider: Frankie Foley Attending Provider: Frankie Foley
[2024-02-06] MEDS: guaiFENesin 600 MG TAB.ER.12H PO (08:25)
[2024-02-06] MEDS: buPROPion HCl SR 150MG TAB 150 MG PO (08:25)
[2024-02-06] MEDS: GABAPENTIN 400MG CAPSULE 400 MG PO ×2 (08:25→14:27)
[2024-02-06] MEDS: CITALOPRAM 40MG TABLET 40 MG PO (08:25)
[2024-02-06] MEDS: OXYBUTYNIN 5MG TAB 5 MG PO (08:26)
[2024-02-06] MEDS: ASPIRIN EC 81MG TABLET 81 MG PO (08:26)
[2024-02-06] MEDS: HEPARIN SODIUM 5,000 UNIT/ML VIAL 5000 UNIT SQ (08:26)
[2024-02-06] MEDS: BUSPIRONE HCL 5 MG TABLET 7.5 MG PO ×2 (08:26→14:27)
[2024-02-06] MEDS: LACTULOSE 20GM/30ML UDC 20 GM PO (08:27)
[2024-02-06] MEDS: ALPRAZolam 0.25MG TABLET 0.25 MG PO ×2 (08:30→14:26)
[2024-02-06] MEDS: LEVOFLOXACIN/D5W 750 MG/150 ML 750 MG/150 ML PIGGYBACK 100 MG IV (08:32)
[2024-02-06 12:00] VITALS: BP 138/87; PULSE 100; RESP 17; TEMP 36.8; O2SAT 90
[2024-02-06 13:02] VITALS: PULSE 112; PULSE 118
== END 2024-02-06 15:49 | DRG 177 ==
LOC: ER 14:39 → 2ND 14:46
PROVIDERS: Admitting Provider Internal Medicine Adolescent Medicine; Emergency Provider Emergency Medicine; Visit Provider Internal Medicine Adolescent Medicine
DX: J15.212 Pneumonia due to Methicillin resistant Staphylococcus aureus (principal); I50.33 Acute on chronic diastolic (congestive) heart failure; J96.20 Acute and chronic respiratory failure, unspecified whether with hypoxia or hypercapnia; J44.0 Chronic obstructive pulmonary disease with (acute) lower respiratory infection; J15.4 Pneumonia due to other streptococci; F41.9 Anxiety disorder, unspecified; E03.9 Hypothyroidism, unspecified; F20.9 Schizophrenia, unspecified; E78.5 Hyperlipidemia, unspecified; F32.A Depression, unspecified; F17.210 Nicotine dependence, cigarettes, uncomplicated; M06.9 Rheumatoid arthritis, unspecified; K21.9 Gastro-esophageal reflux disease without esophagitis; F41.1 Generalized anxiety disorder; I25.10 Atherosclerotic heart disease of native coronary artery without angina pectoris
CPT/HCPCS: 36415; 71045; 71275; 80053; 81001; 82803; 83735; 83880; 84145; 84484; 85025; 85378; 86140; 87040; 87070; 87086; 87205; 87636; 93005; 93306; 94640; 94761; 97163; 97165; 97530; 99285; J1956; Q9967

== ENCOUNTER 2024-02-14 12:36 | Inpatient (IN) | payer MEDICARE, MEDICAID, SELFPAY ==
[2024-02-14] VITALS (13 sets, daily range): BP systolic 104–133; BP diastolic 41–65; PULSE 75–98; RESP 18–24; TEMP 36.7–37.3; O2SAT 84–93; BMI 31.8; BMI 29.3
--- NOTE | 2024-02-14 12:36 | ECG_ITS ---
APPROVED REPORT Exam: Resting ECG HR:97 bpm ECG Measurements Heart Rate 97 AXES QRSd 97 QRS 85 QT 371 T 48 QTc 426 Conclusion SINUS RHYTHM NONSPECIFIC ST & T-WAVE ABNORMALITY ABNORMAL RHYTHM ECG UNCONFIRMED REPORT Electronically signed by : SULMA VIDAL, 02/15/2024 07:53:15
[2024-02-14 12:41] LABS: Lactate Venous 1.4 mmol/L (0.4-2.0); VBG Base Excess 3.7 mmol/L (-2.4-2.3); VBG HCO3 28.8 mmol/L (23-30); VBG Oxygen Saturation 54.6 % (50-70); VBG PCO2 49.5 mmol/L (35-51); VBG PH 7.38 mmol/L (7.31-7.41); VBG PO2 31.3 mmol/L (28-40); VBG Total CO2 30.3 mmol/L (23-27)
--- NOTE | 2024-02-14 12:48 | PC.NURSE ---
Dr. Sanchez and RT at
--- NOTE | 2024-02-14 12:51 | CT_ITS ---
PROCEDURE INFORMATION: Exam: CTA Chest With Contrast Exam date and time: 02/14/2024 1:28 PM Age: 73 years old Clinical indication: Pain; Angina pectoris; Additional info: Cap/tachy TECHNIQUE: Imaging protocol: Computed tomographic angiography of the chest with contrast. Exam focused on the arteries. 3D rendering (Not supervised by radiologist): MIP and/or 3D reconstructed images were created by the technologist. Radiation optimization: All CT scans at this facility use at least one of these dose optimization techniques: automated exposure control; mA and/or kV adjustment per patient size (includes targeted exams where dose is matched to clinical indication); or iterative reconstruction. Contrast material: ISOVUE 370; Contrast volume: 75 ml; Contrast route: INTRAVENOUS (IV); COMPARISON: CT ANGIO CHEST PE PROTOCOL 02/05/2024 1:49 PM FINDINGS: Pulmonary arteries: There is suboptimal opacification of pulmonary arteries due to contrast bolus timing. Aorta: Regions of atherosclerotic vascular calcification involving the aortic arch. Lungs: Bilateral ground-glass regions of opacification. Findings nonspecific and may reflect interstitial lung disease. An acute inflammatory process could not be entirely excluded. Bilateral regions of bronchiectasis, mucous plugging and subsegmental atelectasis most pronounced left lung base. Persistent adjacent satellite spiculated nodule in the juxtapleural region right upper lobe posteriorly and laterally. Findings appear stable. This again measures approximately 8 mm in maximum dimensions. Additional poorly defined nodule abutting the major fissure posteriorly in the right upper lobe and superiorly in the right lower lobe. Findings demonstrated on series 5:48, 49. Additional regions of new juxtapleural nodules superiorly right lower lobe (1002 image number 22, 5:61. Decrease in the size of the mainstem bronchi as well as the right bronchus intermedius in comparison to the previous study. Findings secondary to increased mediastinal adenopathy. Superimposed regions of mucous plugging could not be entirely excluded. Poorly defined masslike region of consolidation in association with subsegmental bronchi and lingular vessels now demonstrated. Findings new. (series 5:59) Pleural spaces: Unremarkable. No pneumothorax. No pleural effusion. Heart: Unremarkable. No cardiomegaly. No pericardial effusion. Coronary arteries: Coronary artery calcification Lymph nodes: right hilar and AP window adenopathy again partially visualized. Spiculated nodule demonstrated in the peribronchial region right upper lobe , 5: 38, 1002:33 this measures approximately 17 mm in maximum dimensions. Findings have slightly increased compared with the previous examination. Bones/joints: Unremarkable. No acute fracture. Soft tissues: Unremarkable. IMPRESSION: 1. Slight increase in previously demonstrated spiculated nodule peribronchial region right upper lobe. New juxtapleural nodules demonstrated superiorly right lower lobe as well as demonstration of a masslike region of consolidation in association with subsegmental bronchi and lingular vessels. Findings suspicious for carcinoma until proven otherwise. Histologic evaluation as well as PET-CT imaging recommended. and subsegmental lingular bronchi. 2. No large or central pulmonary embolus. Evaluation of the peripheral pulmonary arteries is limited. 3. Decrease in the size of the mainstem bronchi as well as the right bronchus intermedius in comparison to the previous study. Findings secondary to increased mediastinal adenopathy. Superimposed regions of mucous plugging could not be entirely excluded.
[2024-02-14] MEDS: IPRATROPIUM/ALBUTEROL 3 ML NEB IH ×2 (13:00→23:35)
--- NOTE | 2024-02-14 13:01 | CT_ITS ---
PROCEDURE INFORMATION: Exam: CT Head Without Contrast Exam date and time: 02/14/2024 1:24 PM Age: 73 years old Clinical indication: Other: Sepsis, encephalopathy TECHNIQUE: Imaging protocol: Computed tomography of the head without contrast. Radiation optimization: All CT scans at this facility use at least one of these dose optimization techniques: automated exposure control; mA and/or kV adjustment per patient size (includes targeted exams where dose is matched to clinical indication); or iterative reconstruction. COMPARISON: CT HEAD/BRAIN WO CON 10/13/2023 11:20 PM FINDINGS: Brain: Periventricular white matter tract changes demonstrated. Mild-moderate prominence of the cortical sulci. Cerebral ventricles: No ventriculomegaly. Paranasal sinuses: Visualized sinuses are unremarkable. No fluid levels. Mastoid air cells: Visualized mastoid air cells are well aerated. Bones/joints: Unremarkable. No acute fracture. Soft tissues: Unremarkable. IMPRESSION: 1. No evidence of acute intracranial abnormality. 2. Findings compatible with moderate intracerebral volume loss.
--- NOTE | 2024-02-14 13:01 | [facility].EDCP ---
Discharge Plan Disposition Patient Disposition: Admitted Prescriptions Prescriptions: No Action bupropion HCl [Wellbutrin SR] 150 mg tablet sustained-release 12 hr 150 mg PO BID Qty: 60 2RF Rx Instructions: 150mg daily x 5 days then 150mg twice daily Patient no longer taking metoclopramide HCl [Reglan] 5 mg tablet 5 mg PO TID Qty: 90 3RF Rx Instructions: administer 30 minutes before meals alprazolam 0.25 mg tablet 0.25 mg PO TID Qty: 90 3RF gabapentin 400 mg capsule 400 mg PO TID Qty: 90 3RF guaifenesin 400 mg tablet 400 mg PO DAILY Qty: 120 0RF lactulose 10 gram/15 mL solution 30 ml PO DAILY PRN (Reason: Constipation) multivitamin with minerals Capsule 1 cap PO DAILY dextromethorphan-guaifenesin 10-100 mg/5 mL liquid 10 ml PO Q6H PRN (Reason: Cough) sennosides [senna] 8.6 mg tablet 8.6 mg PO DAILY PRN (Reason: Constipation) buspirone 7.5 mg tablet 7.5 mg PO TID Qty: 90 3RF aspirin 81 mg tablet,delayed release (DR/EC) 81 mg PO DAILY Qty: 90 0RF pravastatin 20 mg tablet 20 mg PO HS Qty: 90 0RF albuterol sulfate [ProAir HFA] 90 mcg/actuation HFA aerosol inhaler 2 puff inhalation Q4HP PRN (Reason: Shortness Of Breath Or Wheezing) Qty: 8.5 0RF cholecalciferol (vitamin D3) 25 mcg (1,000 unit) capsule 25 mcg PO DAILY Qty: 90 0RF melatonin 3 mg Tablet 3 mg PO HS quetiapine 100 mg tablet 250 mg PO HS levothyroxine 50 mcg tablet 50 mcg PO DAILY pantoprazole 40 MG tablet,delayed release (DR/EC) 40 mg PO DAILY cetirizine 10 mg Tablet 10 mg PO DAILY acetaminophen 500 mg Tablet 500 mg PO TID oxybutynin chloride 5 mg tablet 10 mg PO DAILY trazodone 100 mg Tablet 100 mg PO HS escitalopram oxalate [Lexapro] 20 mg Tablet 20 mg PO DAILY polyethylene glycol 3350 17 gram Powder In Packet 17 g PO DAILY PRN (Reason: Constipation) prednisone 5 mg Tablet 5 mg PO DAILY Trelegy Ellipta 100-62.5-25 mcg Blister With Device 1 inh inhalation DAILY 30 Days Qty: 1 0RF ipratropium-albuterol 0.5 mg-3 mg(2.5 mg base)/3 mL Solution For Nebulization 3 ml INHALATION Q6H 30 Days Qty: 0 0RF levofloxacin 750 mg tablet 750 mg PO DAILY 3 Days Qty: 3 0RF furosemide [Lasix] 40 mg tablet 40 mg PO DAILY Qty: 5 0RF Referrals Follow up/Referrals: Provider,Referral, MD [Primary Care Provider] - See instructions Clinical Impressions Clinical Impression: Pneumonia, Acute hypoxic respiratory failure, Sepsis Discharge ED Provider: Wale Fontana HPI <Doug Sanchez MD - Last Filed: 02/14/24 15:10> General Chief Complaint: Shortness of Breath/Dyspnea Stated Complaint: hypoxia/ams Time Seen by Provider: 02/14/24 12:45 Mode of Arrival: EMS Source of Information: EMS Limitations: No Limitations Description of Symptoms (Recalled from ER Triage Doc. by RN): EMS reports that the patient had low oxygen saturations and increased altered mental status. History of Present Illness HPI narrative: Patient is a 73-year-old female with multiple comorbidities including CHF, COPD on 3 L nasal cannula at baseline, recent admission for sepsis secondary pneumonia that was managed inpatient and transitioned to long-term care management, on 4 L nasal cannula discharge transition to oral levofloxacin for which she was to complete a 7-day course who presents to the emergency department for worsening respiratory symptoms. Per long term report Dr. Daniel Day on 02/10 patient was feeling good and had no complaints, chest was clear to auscultation at that time. Over the last couple of days she has had worsening respiratory symptoms, cough, worsening of mental baseline per nursing at [facility] and now she presents here for continued evaluation. Patient is complaining of shortness of breath, chest pain with deep inspiration. Patient was given 2 DuoNebs at long-term care facility and oxygen on 4 L at that time was in the 70s causing them to trigger her to be transferred here. No other acute complaints at this time. Related Data Home Medications Medication Instructions Recorded Confirmed acetaminophen 500 mg tablet 500 mg PO TID Pain 12/20/22 02/11/24 levothyroxine 50 mcg tablet 50 mcg PO DAILY thyroid 03/28/23 02/11/24 melatonin 3 mg tablet 3 mg PO HS SLEEP 03/28/23 02/11/24 pantoprazole 40 mg tablet,delayed 40 mg PO DAILY Acid reflux 03/28/23 02/11/24 release quetiapine 100 mg tablet 250 mg PO HS MOOD 03/28/23 02/11/24 cetirizine 10 mg tablet 10 mg PO DAILY 09/08/23 02/11/24 oxybutynin chloride 5 mg tablet 10 mg PO DAILY overactive bladder 10/14/23 02/11/24 trazodone 100 mg tablet 100 mg PO HS 10/14/23 02/11/24 dextromethorphan-guaifenesin 10 10 ml PO Q6H PRN Cough 11/28/23 02/11/24 mg-100 mg/5 mL oral liquid lactulose 10 gram/15 mL oral 30 ml PO DAILY PRN Constipation 11/28/23 02/11/24 solution multivitamin with minerals 1 cap PO DAILY 11/28/23 02/11/24 sennosides 8.6 mg tablet (senna) 8.6 mg PO DAILY PRN Constipation 11/28/23 02/11/24 escitalopram oxalate 20 mg tablet 20 mg PO DAILY Depression 02/03/24 02/11/24 (Lexapro) polyethylene glycol 3350 17 gram 17 g PO DAILY PRN Constipation 02/03/24 02/11/24 oral powder packet prednisone 5 mg tablet 5 mg PO DAILY 02/04/24 02/11/24 Previous Rx's Medication Instructions Recorded albuterol sulfate 90 mcg/actuation 2 puff inhalation Q4HP PRN 10/15/22 aerosol inhaler (ProAir HFA) Shortness Of Breath Or Wheezing #8.5 grams aspirin 81 mg tablet,delayed 81 mg PO DAILY Heart disease #90 10/15/22 release tabs cholecalciferol (vitamin D3) 25 25 mcg PO DAILY Supplement #90 caps 10/15/22 mcg (1,000 unit) capsule pravastatin 20 mg tablet 20 mg PO HS Cholesterol #90 tabs 10/15/22 bupropion HCl 150 mg tablet,12 hr 150 mg PO BID #60 ea 05/29/23 sustained-release (Wellbutrin SR) metoclopramide HCl 5 mg tablet 5 mg PO TID #90 tabs 07/10/23 (Reglan) alprazolam 0.25 mg tablet 0.25 mg PO TID Anxiety #90 tabs 11/24/23 gabapentin 400 mg capsule 400 mg PO TID Pain #90 caps 11/24/23 guaifenesin 400 mg tablet 400 mg PO DAILY #120 tabs 11/28/23 buspirone 7.5 mg tablet 7.5 mg PO TID #90 tabs 01/14/24 fluticasone fur. 100 mcg-umeclid 1 inh inhalation DAILY 30 days #1 02/06/24 62.5 mcg-vilant 25 mcg ea inhalat.powder (Trelegy Ellipta) furosemide 40 mg tablet (Lasix) 40 mg PO DAILY #5 tabs 02/06/24 ipratropium 0.5 mg-albuterol 3 mg 3 ml inhalation Q6H shortness of 02/06/24 (2.5 mg base)/3 mL nebulization breath 30 days #0 mL soln levofloxacin 750 mg tablet 750 mg PO DAILY 3 days #3 tabs 02/06/24 Allergies Allergy/AdvReac Type Severity Reaction Status Date / Time metronidazole Allergy Unknown I-HIVES Verified 02/11/24 10:51 nitrofurantoin Allergy Unknown Unknown Verified 02/11/24 10:51 [From MACROBID] allergy reaction [facility] <Doug Sanchez MD - Last Filed: 02/14/24 15:10> [facility] Disclaimer: The information contained in this section may have been updated after the patient was seen, as this information can be updated by other users. Medical History Asthma Congenital diverticulum of esophagus Anxiety Essential hypertension Arthritis Diverticulosis History of falling History of dysuria History of cystitis Migraine Rheumatoid arthritis Intervertebral disc disorder Schizoaffective disorder Depression Dysphagia GERD (gastroesophageal reflux disease) Nicotine dependence Hx MRSA infection Atherosclerotic cardiovascular disease Hypothyroid Emphysema/COPD Hypertension Hyperlipidemia Pseudomonas urinary tract infection Gram-negative infection Lumbar radiculopathy Toe pain, left Breast nodule Lung nodule Closed head injury Fall Community acquired pneumonia Respiratory failure with hypoxia and hypercapnia Sepsis with acute organ dysfunction Community acquired bacterial pneumonia Sepsis COPD exacerbation Aspiration pneumonia Esophageal diverticulum E. coli UTI (urinary tract infection) Hypokalemia SIRS (systemic inflammatory response syndrome) Cholelithiasis Colon, diverticulosis Emphysematous cystitis Abdominal pain UTI (urinary tract infection) Pneumonia Tobacco dependence Decreased mobility Urinary incontinence Low back pain radiating to both legs Obesity (BMI 30-39.9) COPD with acute exacerbation Staphylococcus aureus pneumonia Lung nodule seen on imaging study Acquired hypothyroidism Chronic low back pain Generalized anxiety disorder Cough Acute bronchitis RLL pneumonia Acute exacerbation of chronic obstructive airways disease Surgical History H/O: hysterectomy Family History Other Family history of cancer Social History Smoking Status: Unknown if ever smoked second hand exposure: Yes alcohol intake: former substance use type: denies use current occupational status: retired Travel in the last 8 weeks: None household members: family housing: long term diet: low salt caffeine: Yes <Doug Sanchez MD - Last Filed: 02/14/24 15:10> ROS Obtained: Yes Systems reviewed as appropriate & no additional complaints except as documented Physical Exam <Doug Sanchez MD - Last Filed: 02/14/24 15:10> General General appearance: alert and in no apparent distress Head Head exam: atraumatic and normocephalic Eye Eye exam: Present PERRL and EOMI ENT ENT exam: Present mucous membranes moist Neck Neck exam: Present normal inspection Chest Chest inspection: Present normal inspection and symmetric chest wall rise Respiratory Respiratory exam: Present respiratory distress, wheezes, accessory muscle use and other (Diffuse wheezing and rhonchi, tachypnea) Cardiovascular Cardiovascular exam: Present regular rate and normal rhythm Abdominal Exam Abdominal exam: Present soft; Absent tenderness Extremities Exam Extremities exam: Present normal inspection Neurological Exam Neurological exam: Present alert Psychiatric Psychiatric exam: Present normal affect Skin Skin exam: Present warm and dry HEART Score <Doug Sanchez MD - Last Filed: 02/14/24 15:10> HEART Score HEART Score assessment performed?: Yes History (anamnesis): Slightly suspicious ECG: Non-specific disturbance Age: >65 years Risk factors: 1-2 risk factors Troponin: </= normal limit HEART Score: 4 <Wale Fontana MD - Last Filed: 02/14/24 15:46> HEART Score HEART Score: 4 Critical Care <Doug Sanchez MD - Last Filed: 02/14/24 15:10> Critical Care Time Critical Care Time: Yes Attestation: On 02/14/24, the high probability of a clinically significant, sudden or life threatening deterioration of the following system(s) required my full and direct attention, intervention and personal management. The time I documented below is in addition to time spent performing reported procedures but includes the following listed in this critical care notation. Total Time Total Critical Care Time: 35 Medical Decision Making <Doug Sanchez MD - Last Filed: 02/14/24 15:10> Alex Hardy Pt receiving controlled substance: No Vital Signs Vital Signs: 02/14/24 12:36 02/14/24 13:01 02/14/24 13:01 Temperature Temperature Source Pulse Rate 96 H Pulse Rate [Radial] 98 H Respiratory Rate 24 Blood Pressure Blood Pressure [Right Arm] 133/65 Blood Pressure Mean Blood Pressure Mean [Right Arm] 87 Blood Pressure Source [Right Arm] Automatic Cuff Blood Pressure Position [Right Arm] Supine 02 Sat by Pulse Oximetry 93 L 90 L Oxygen Delivery Method Non-Rebreather Venturi Mask Oxygen Flow Rate (LPM) 12 02/14/24 13:01 02/14/24 13:01 02/14/24 13:26 Temperature 99.1 F Temperature Source Oral Pulse Rate 78 78 Pulse Rate [Radial] Respiratory Rate 20 Blood Pressure 123/46 L Blood Pressure [Right Arm] Blood Pressure Mean 81 Blood Pressure Mean [Right Arm] Blood Pressure Source [Right Arm] Blood Pressure Position [Right Arm] 02 Sat by Pulse Oximetry 92 L Oxygen Delivery Method Oxygen Flow Rate (LPM) 02/14/24 13:54 02/14/24 14:30 02/14/24 14:35 Temperature Temperature Source Pulse Rate 78 Pulse Rate [Radial] Respiratory Rate 20 20 Blood Pressure 104/55 L 110/59 L Blood Pressure [Right Arm] Blood Pressure Mean 71 75 Blood Pressure Mean [Right Arm] Blood Pressure Source [Right Arm] Blood Pressure Position [Right Arm] 02 Sat by Pulse Oximetry 84 L 89 L 89 L Oxygen Delivery Method Venturi Mask Venturi Mask Oxygen Flow Rate (LPM) 12 02/14/24 15:00 02/14/24 15:30 Temperature Temperature Source Pulse Rate 82 77 Pulse Rate [Radial] Respiratory Rate 20 20 Blood Pressure 107/60 L 122/61 Blood Pressure [Right Arm] Blood Pressure Mean 73 81 Blood Pressure Mean [Right Arm] Blood Pressure Source [Right Arm] Blood Pressure Position [Right Arm] 02 Sat by Pulse Oximetry 89 L 89 L Oxygen Delivery Method Oxygen Flow Rate (LPM) Lab Data Labs: Lab Results 02/14/24 12:36: WBC 25.3 H*, RBC 4.35, Hgb 11.6 L, Hct 37.1, MCV 85.3, MCH 26.7 L, MCHC 31.3 L, RDW 17.1, Plt Count 355, MPV 8.8, Neut % (Auto) 90.6 H, Lymph % (Auto) 4.3 L, [place] % (Auto) 4.3, Eos % (Auto) 0.5, Baso % (Auto) 0.3, Neut # (Auto) 22.9 H, Lymph # (Auto) 1.1, [place] # (Auto) 1.1 H, Eos # (Auto) 0.1, Baso # (Auto) 0.1, Total Counted 100, Neutrophils % (Manual) 93 H, Lymphocytes % (Manual) 6 L, Monocytes % (Manual) 1 L, Platelet Estimate Normal, RBC Morphology Normal, Sodium 136, Potassium 3.9, Chloride 100, Carbon Dioxide 34 H, Anion Gap 5.9, BUN 10, Creatinine 0.60, Estimated Creat Clear 65, Estimated GFR 98, Est GFR ( Amer) 118, Glucose 125 H, Calcium 9.0, Total Bilirubin 0.4, AST 38 H, ALT 15, Alkaline Phosphatase 68, Troponin I < 0.01, NT-Pro-B Natriuret Pep 67.6, Total Protein 6.3, Albumin 3.3 L, Globulin 3.0, Albumin/Globulin Ratio 1.1 02/14/24 12:37: VBG pH 7.38, VBG pCO2 49.5, VBG pO2 31.3, VBG HCO3 28.8, VBG Total CO2 30.3 H, VBG O2 Saturation 54.6, VBG Base Excess 3.7 H, VBG Lactic Acid 1.4 02/14/24 14:40: Urine Color Yellow, Urine Appearance Clear, Urine pH 6.5, Ur Specific [place] 1.025, Urine Protein Negative, Urine Glucose (UA) Negative, Urine Ketones Negative, Urine Blood 1+, Urine Nitrate Negative, Urine Bilirubin Negative, Urine Urobilinogen 0.2, Ur Leukocyte Esterase Negative, Urine RBC None, Urine WBC None, Ur Squamous Epith Cells None, Urine Bacteria None 02/14/24 18:04: SARS-CoV-2 (PCR) Not detected, Influenza A Untype (PCR) Not detected, Influenza Type B (PCR) Not detected 02/14/24 12:36 02/14/24 12:36 Response Orders (Tests/Meds): ED MEDICATIONS Generic Name Dose Route Start Last Admin Trade Name Freq PRN Reason Stop Dose Admin Vancomycin/PEG/NADA/Lysine/Water 1.75 gm in 350 mls @ 175 mls/hr 02/14/24 14:45 02/14/24 15:24 Vancomycin 1.75gm/350ml (Peg) Premix IV 02/24/24 14:44 175 mls/hr Q18H DANETTE Administration Discontinued Medications Generic Name Dose Route Start Last Admin Trade Name Freq PRN Reason Stop Dose Admin Albuterol Sulfate 20 mg 02/14/24 12:52 02/14/24 13:11 Albuterol 0.083% 2.5 Mg/3 Ml Neb 02/14/24 12:53 20 mg ONCE ONE Administration Albuterol/Ipratropium 3 ml 02/14/24 12:52 02/14/24 13:00 Ipratropium/Albuterol 3 Ml Neb 02/14/24 12:53 3 ml ONCE ONE Administration Magnesium Sulfate 2 gm in 50 mls @ 50 mls/hr 02/14/24 12:52 02/14/24 13:12 Magnesium Sulfate 2gm/50ml Premix IV 02/14/24 13:51 50 mls/hr ONCE ONE Administration Ceftriaxone Sodium 1 gm/ 50 mls @ 100 mls/hr 02/14/24 12:53 02/14/24 13:43 Sodium Chloride IV 02/14/24 13:22 100 mls/hr ONCE ONE Administration Azithromycin 500 mg/ Sodium 250 mls @ 250 mls/hr 02/14/24 12:53 02/14/24 14:11 Chloride IV 02/14/24 12:54 250 mls/hr ONCE ONE Administration Iopamidol 70 ml 02/14/24 13:36 02/14/24 13:36 Iopamidol-370 (76%);100ml Bottle IV 02/14/24 13:37 70 ml ONCE ONE Administration Methylprednisolone Sodium Succinate 125 mg 02/14/24 12:54 02/14/24 13:11 Methylprednisolone Sod Succ 125mg Vial IV 02/14/24 12:55 125 mg ONCE ONE Administration Miscellaneous 1 each 02/14/24 14:30 02/14/24 14:34 Vancomycin Consult Request NOTAPPLIC 03/15/24 14:29 1 each CONSULT PHARMACY DANETTE Administration Sodium Chloride 50 ml 02/14/24 13:36 02/14/24 13:36 0.9 % Sodium Chloride 50 Ml Vial IV 02/14/24 13:37 50 ml ONCE ONE Administration Sodium Chloride 10 ml 02/14/24 13:36 Sodium Chloride 0.9% 10ml Syr (Rad Only) IV 03/15/24 13:35 NEEDED PRN Maintain IV Site ORDERS Category Date Time Status CT angio chest PE protocol Stat Cat Scan 02/14/24 12:[address] head/brain wo con Stat Cat Scan 02/14/24 13:01 Completed POCUS Point of Care (ER Only) Stat Exams 02/14/24 12:56 Taken BNP [NT Pro Brain Natriuretic Pep.] Stat Lab 02/14/24 12:36 Completed CBC w/Auto Diff [Complete Blood Count Auto Diff] Stat Lab 02/14/24 12:36 Completed CMP [Comprehensive Metabolic Panel] Stat Lab 02/14/24 12:36 Completed Rapid PCR Covid and Flu A/B Stat Lab 02/14/24 18:04 Completed Trop I [Troponin I] Stat Lab 02/14/24 12:36 Completed Troponin I Q3H Lab 02/14/24 16:00 Ordered Troponin I Q3H Lab 02/14/24 19:00 Ordered UA [Urinalysis and Microscopic] Stat Lab 02/14/24 14:40 Completed Blood Culture Stat Micro 02/14/24 12:51 Received Venous Blood Gas Routine RT 02/14/24 12:37 Completed ECG Data Tracing #1: ECG Narrative: Independently interpreted by me, rate is 97, rhythm is regular, axis is normal, no ST elevation in anatomical contiguous leads, QTc 426. MDM Narrative Medical Decision Narrative: In summary patient is a 73-year-old female with multiple comorbidities, recent mission for pneumonia with new oxygen baseline 4 L nasal cannula during the day who presents to the emergency department for worsening respiratory status. Patient is hemodynamically stable upon arrival, borderline tachycardia, tachypneic, diffuse wheezing and rhonchi in all lung kruse requiring nonrebreather to saturate greater than 95%. Differential includes pneumonia, CHF exacerbation, pulmonary embolism, among others. Workup will be conducted with hematologic labs, chest x-ray, EKG, troponin, CTA chest. Per recent discharge summary patient was discharged on levofloxacin however long term report patient was being given Bactrim. Initial interventions include broadening antibiotics to ceftriaxone and azithromycin. Given that patient diuresed well last admission and is not hypotensive in the setting of known heart failure aggressive volume resuscitation and sepsis bolus fluids will be deferred. Initial workup reviewed by me, hematologic labs remarkable for significant leukocytosis 25.3 with left shift, compensated acid-base status, no critical electrolyte abnormality or DAVE, initial troponin undetectably low. CT informally interpreted by me, no saddle PE, bibasilar pneumonia. Given that patient lives in long-term care facility and has multiple comorbidities patient will be broadened with IV vancomycin. CT head shows no acute pathology. Formal CT read pending at time of transition of care to the oncoming physician, Dr. Fontana. Patient will require admission to the hospital. <Wale Fontana MD - Last Filed: 02/14/24 15:46> Vital Signs Vital Signs: 02/14/24 12:36 02/14/24 13:01 02/14/24 13:01 Temperature Temperature Source Pulse Rate 96 H Pulse Rate [Radial] 98 H Respiratory Rate 24 Blood Pressure Blood Pressure [Right Arm] 133/65 Blood Pressure Mean Blood Pressure Mean [Right Arm] 87 Blood Pressure Source [Right Arm] Automatic Cuff Blood Pressure Position [Right Arm] Supine 02 Sat by Pulse Oximetry 93 L 90 L Oxygen Delivery Method Non-Rebreather Venturi Mask Oxygen Flow Rate (LPM) 12 02/14/24 13:01 02/14/24 13:01 02/14/24 13:26 Temperature 99.1 F Temperature Source Oral Pulse Rate 78 78 Pulse Rate [Radial] Respiratory Rate 20 Blood Pressure 123/46 L Blood Pressure [Right Arm] Blood Pressure Mean 81 Blood Pressure Mean [Right Arm] Blood Pressure Source [Right Arm] Blood Pressure Position [Right Arm] 02 Sat by Pulse Oximetry 92 L Oxygen Delivery Method Oxygen Flow Rate (LPM) 02/14/24 13:54 02/14/24 14:30 02/14/24 14:35 Temperature Temperature Source Pulse Rate 78 Pulse Rate [Radial] Respiratory Rate 20 20 Blood Pressure 104/55 L 110/59 L Blood Pressure [Right Arm] Blood Pressure Mean 71 75 Blood Pressure Mean [Right Arm] Blood Pressure Source [Right Arm] Blood Pressure Position [Right Arm] 02 Sat by Pulse Oximetry 84 L 89 L 89 L Oxygen Delivery Method Venturi Mask Venturi Mask Oxygen Flow Rate (LPM) 12 02/14/24 15:00 02/14/24 15:30 Temperature Temperature Source Pulse Rate 82 77 Pulse Rate [Radial] Respiratory Rate 20 20 Blood Pressure 107/60 L 122/61 Blood Pressure [Right Arm] Blood Pressure Mean 73 81 Blood Pressure Mean [Right Arm] Blood Pressure Source [Right Arm] Blood Pressure Position [Right Arm] 02 Sat by Pulse Oximetry 89 L 89 L Oxygen Delivery Method Oxygen Flow Rate (LPM) Lab Data Labs: Lab Results 02/14/24 12:36: WBC 25.3 H*, RBC 4.35, Hgb 11.6 L, Hct 37.1, MCV 85.3, MCH 26.7 L, MCHC 31.3 L, RDW 17.1, Plt Count 355, MPV 8.8, Neut % (Auto) 90.6 H, Lymph % (Auto) 4.3 L, [place] % (Auto) 4.3, Eos % (Auto) 0.5, Baso % (Auto) 0.3, Neut # (Auto) 22.9 H, Lymph # (Auto) 1.1, [place] # (Auto) 1.1 H, Eos # (Auto) 0.1, Baso # (Auto) 0.1, Total Counted 100, Neutrophils % (Manual) 93 H, Lymphocytes % (Manual) 6 L, Monocytes % (Manual) 1 L, Platelet Estimate Normal, RBC Morphology Normal, Sodium 136, Potassium 3.9, Chloride 100, Carbon Dioxide 34 H, Anion Gap 5.9, BUN 10, Creatinine 0.60, Estimated Creat Clear 65, Estimated GFR 98, Est GFR ( Amer) 118, Glucose 125 H, Calcium 9.0, Total Bilirubin 0.4, AST 38 H, ALT 15, Alkaline Phosphatase 68, Troponin I < 0.01, NT-Pro-B Natriuret Pep 67.6, Total Protein 6.3, Albumin 3.3 L, Globulin 3.0, Albumin/Globulin Ratio 1.1 02/14/24 12:37: VBG pH 7.38, VBG pCO2 49.5, VBG pO2 31.3, VBG HCO3 28.8, VBG Total CO2 30.3 H, VBG O2 Saturation 54.6, VBG Base Excess 3.7 H, VBG Lactic Acid 1.4 02/14/24 14:40: Urine Color Yellow, Urine Appearance Clear, Urine pH 6.5, Ur Specific [place] 1.025, Urine Protein Negative, Urine Glucose (UA) Negative, Urine Ketones Negative, Urine Blood 1+, Urine Nitrate Negative, Urine Bilirubin Negative, Urine Urobilinogen 0.2, Ur Leukocyte Esterase Negative, Urine RBC None, Urine WBC None, Ur Squamous Epith Cells None, Urine Bacteria None 02/14/24 18:04: SARS-CoV-2 (PCR) Not detected, Influenza A Untype (PCR) Not detected, Influenza Type B (PCR) Not detected Response Orders (Tests/Meds): ED MEDICATIONS Generic Name Dose Route Start Last Admin Trade Name Freq PRN Reason Stop Dose Admin Vancomycin/PEG/NADA/Lysine/Water 1.75 gm in 350 mls @ 175 mls/hr 02/14/24 14:45 02/14/24 15:24 Vancomycin 1.75gm/350ml (Peg) Premix IV 02/24/24 14:44 175 mls/hr Q18H DANETTE Administration Discontinued Medications Generic Name Dose Route Start Last Admin Trade Name Freq PRN Reason Stop Dose Admin Albuterol Sulfate 20 mg 02/14/24 12:52 02/14/24 13:11 Albuterol 0.083% 2.5 Mg/3 Ml [facility] 02/14/24 12:53 20 mg ONCE ONE Administration Albuterol/Ipratropium 3 ml 02/14/24 12:52 02/14/24 13:00 Ipratropium/Albuterol 3 Ml Neb 02/14/24 12:53 3 ml ONCE ONE Administration Magnesium Sulfate 2 gm in 50 mls @ 50 mls/hr 02/14/24 12:52 02/14/24 13:12 Magnesium Sulfate 2gm/50ml Premix IV 02/14/24 13:51 50 mls/hr ONCE ONE Administration Ceftriaxone Sodium 1 gm/ 50 mls @ 100 mls/hr 02/14/24 12:53 02/14/24 13:43 Sodium Chloride IV 02/14/24 13:22 100 mls/hr ONCE ONE Administration Azithromycin 500 mg/ Sodium 250 mls @ 250 mls/hr 02/14/24 12:53 02/14/24 14:11 Chloride IV 02/14/24 12:54 250 mls/hr ONCE ONE Administration Iopamidol 70 ml 02/14/24 13:36 02/14/24 13:36 Iopamidol-370 (76%);100ml Bottle IV 02/14/24 13:37 70 ml ONCE ONE Administration Methylprednisolone Sodium Succinate 125 mg 02/14/24 12:54 02/14/24 13:11 Methylprednisolone Sod Succ 125mg Vial IV 02/14/24 12:55 125 mg ONCE ONE Administration Miscellaneous 1 each 02/14/24 14:30 02/14/24 14:34 Vancomycin Consult Request NOTAPPLIC 03/15/24 14:29 1 each CONSULT PHARMACY DANETTE Administration Sodium Chloride 50 ml 02/14/24 13:36 02/14/24 13:36 0.9 % Sodium Chloride 50 Ml Vial IV 02/14/24 13:37 50 ml ONCE ONE Administration Sodium Chloride 10 ml 02/14/24 13:36 Sodium Chloride 0.9% 10ml Syr (Rad Only) IV 03/15/24 13:35 NEEDED PRN Maintain IV Site ORDERS Category Date Time Status CT angio chest PE protocol Stat Cat Scan 02/14/24 12:[address] head/brain wo con Stat Cat Scan 02/14/24 13:01 Completed POCUS Point of Care (ER Only) Stat Exams 02/14/24 12:56 Taken BNP [NT Pro Brain Natriuretic Pep.] Stat Lab 02/14/24 12:36 Completed CBC w/Auto Diff [Complete Blood Count Auto Diff] Stat Lab 02/14/24 12:36 Completed CMP [Comprehensive Metabolic Panel] Stat Lab 02/14/24 12:36 Completed Rapid PCR Covid and Flu A/B Stat Lab 02/14/24 18:04 Completed Trop I [Troponin I] Stat Lab 02/14/24 12:36 Completed Troponin I Q3H Lab 02/14/24 16:00 Ordered Troponin I Q3H Lab 02/14/24 19:00 Ordered UA [Urinalysis and Microscopic] Stat Lab 02/14/24 14:40 Completed Blood Culture Stat Micro 02/14/24 12:51 Received Venous Blood Gas Routine RT 02/14/24 12:37 Completed MDM Narrative Medical Decision Narrative: In summary patient is a 73-year-old female with multiple comorbidities, recent mission for pneumonia with new oxygen baseline 4 L nasal cannula during the day who presents to the emergency department for worsening respiratory status. Patient is hemodynamically stable upon arrival, borderline tachycardia, tachypneic, diffuse wheezing and rhonchi in all lung kruse requiring nonrebreather to saturate greater than 95%. Differential includes pneumonia, CHF exacerbation, pulmonary embolism, among others. Workup will be conducted with hematologic labs, chest x-ray, EKG, troponin, CTA chest. Per recent discharge summary patient was discharged on levofloxacin however long term report patient was being given Bactrim. Initial interventions include broadening antibiotics to ceftriaxone and azithromycin. Given that patient diuresed well last admission and is not hypotensive in the setting of known heart failure aggressive volume resuscitation and sepsis bolus fluids will be deferred. Initial workup reviewed by me, hematologic labs remarkable for significant leukocytosis 25.3 with left shift, compensated acid-base status, no critical electrolyte abnormality or DAVE, initial troponin undetectably low. CT informally interpreted by me, no saddle PE, bibasilar pneumonia. Given that patient lives in long-term care facility and has multiple comorbidities patient will be broadened with IV vancomycin. CT head shows no acute pathology. Formal CT read pending at time of transition of care to the oncoming physician, Dr. Fontana. Patient will require admission to the hospital. Marizol: I assumed primary responsibility for this patient after signout from previous physician. I provided no additional care to this patient. CT scan was negative, to be admitted.
[2024-02-14 13:07] LABS: Basophils # 0.1 K/mm3 (0-0.2); Basophils % 0.3 % (0.1-2.0); Eosinophils # 0.1 K/mm3 (0.0-0.4); Eosinophils % 0.5 % (0.1-12.0); Hematocrit 37.1 % (37.0-47.0); Hemoglobin 11.6 g/dL (12.2-16.2); Lymphocytes # 1.1 K/mm3 (0.7-4.5); Lymphocytes % 4.3 % (10-50); Mean Corpuscular HGB Conc 31.3 g/dL (31.8-35.4); Mean Corpuscular Hemoglobin 26.7 pg (27.0-31.2); Mean Corpuscular Volume 85.3 fl (81-99); Mean Platelet Volume 8.8 fl (7.4-10.4); Monocytes # 1.1 K/mm3 (0.1-1.0); Monocytes % 4.3 % (1.7-9.3); Neutrophils # 22.9 K/mm3 (1.8-7.8); Neutrophils % 90.6 % (37.0-80.0); Platelet Count 355 K/mm3 (142-424); Red Blood Count 4.35 M/mm3 (4.20-5.40); Red Cell Distribution Width 17.1 % (11.5-17.5); White Blood Count 25.3 K/mm3 (4.8-10.8)
[2024-02-14 13:09] LABS: Chloride 100 mmol/L (98-107); Potassium 3.9 mmoL/L (3.5-5.1); Sodium 136 mmol/L (136-145)
[2024-02-14 13:11] LABS: Alanine Aminotransferase 15 U/L (12-78); Aspartate Amino Transferase 38 U/L (14-36); Blood Urea Nitrogen 10 mg/dl (7-17); Creatinine Clearance Estimated 65 mL/min (50-200); Estimated Glomerular Filt Rate 98 ml/min (>60); GFR (African American) 118 ML/MIN (>60)
[2024-02-14] MEDS: ALBUTEROL 0.083% 2.5 MG/3 ML NEB 20 MG IH (13:11)
[2024-02-14] MEDS: METHYLPREDNISOLONE SOD SUCC 125MG VIAL 125 MG IV (13:11)
[2024-02-14 13:12] LABS: Albumin Level 3.3 g/dl (3.5-5.0); Albumin/Globulin Ratio 1.1 (1.1-1.8); Alkaline Phosphatase 68 U/L (38-126); Anion Gap 5.9 mEq/L (5-15); Bilirubin,Total 0.4 mg/dl (0.2-1.3); Carbon Dioxide 34 mmol/L (22.0-30.0); Glucose 125 mg/dl (74-100); Total Protein,Serum 6.3 g/dl (6.3-8.2)
[2024-02-14] MEDS: MAGNESIUM SULFATE IN WATER 2 GM/50 ML PIGGYBACK IV (13:12)
--- NOTE | 2024-02-14 13:20 | PC.NURSE ---
Patient to ct.
[2024-02-14 13:21] LABS: NT Pro Brain Natriuretic Pep. 67.6 pg/mL (0-125)
[2024-02-14 13:24] LABS: Troponin I < 0.01 ng/ml (0.00-0.034)
[2024-02-14 13:31] LABS: MANUAL DIFFERENTIAL MANUAL DIFFERENTIAL (MANUAL DIFF)
--- NOTE | 2024-02-14 13:33 | PC.NURSE ---
Pt returned from RAD
[2024-02-14] MEDS: IOPAMIDOL-370 (76%);100ML BOTTLE 70 ML IV (13:36)
[2024-02-14] MEDS: 0.9 % SODIUM CHLORIDE 50 ML VIAL IV (13:36)
[2024-02-14] MEDS: CEFTRIAXONE 1 GM 1 GM in 0.9 % SODIUM CHLORIDE 50 ML IV (13:43)
[2024-02-14] MEDS: AZITHROMYCIN 500 MG in 0.9 % SODIUM CHLORIDE 250 ML 250 MG IV (14:11)
[2024-02-14 14:14] LABS: Coronavirus 19, PCR Not Detected (NotDetected); Influenza A, PCR Not Detected (NotDetected); Influenza B, PCR Not Detected (NotDetected)
[2024-02-14 14:16] LABS: Lymphocytes % 6 % (10-50); Monocytes % 1 % (2-9); Neutrophils % 93 % (42-76); Platelet Estimate Normal; RBC Morphology Normal; Total Cells Counted 100
--- NOTE | 2024-02-14 14:32 | EXP.PHA.CONS ---
Pharmacy Consult Date: 02/14/24 Time: 14:32 Referring provider: DR. VIDAL Reason for Consult:: VANCOMYCIN DOSING Allergies Allergy/AdvReac Type Severity Reaction Status Date / Time metronidazole Allergy Unknown I-HIVES Verified 02/11/24 10:51 nitrofurantoin Allergy Unknown Unknown Verified 02/11/24 10:51 [From MACROBID] allergy reaction Home Medications Medication Instructions Recorded Confirmed Type albuterol sulfate 90 mcg/actuation 2 puff inhalation Q4HP PRN 10/15/22 02/11/24 Rx aerosol inhaler (ProAir HFA) Shortness Of Breath Or Wheezing #8.5 grams aspirin 81 mg tablet,delayed 81 mg PO DAILY Heart disease #90 10/15/22 02/11/24 Rx release tabs cholecalciferol (vitamin D3) 25 25 mcg PO DAILY Supplement #90 caps 10/15/22 02/11/24 Rx mcg (1,000 unit) capsule pravastatin 20 mg tablet 20 mg PO HS Cholesterol #90 tabs 10/15/22 02/11/24 Rx acetaminophen 500 mg tablet 500 mg PO TID Pain 12/20/22 02/11/24 History levothyroxine 50 mcg tablet 50 mcg PO DAILY thyroid 03/28/23 02/11/24 History melatonin 3 mg tablet 3 mg PO HS SLEEP 03/28/23 02/11/24 History pantoprazole 40 mg tablet,delayed 40 mg PO DAILY Acid reflux 03/28/23 02/11/24 History release quetiapine 100 mg tablet 250 mg PO HS MOOD 03/28/23 02/11/24 History bupropion HCl 150 mg tablet,12 hr 150 mg PO BID #60 ea 05/29/23 02/11/24 Rx sustained-release (Wellbutrin SR) metoclopramide HCl 5 mg tablet 5 mg PO TID #90 tabs 07/10/23 02/11/24 Rx (Reglan) cetirizine 10 mg tablet 10 mg PO DAILY 09/08/23 02/11/24 History oxybutynin chloride 5 mg tablet 10 mg PO DAILY overactive bladder 10/14/23 02/11/24 History trazodone 100 mg tablet 100 mg PO HS 10/14/23 02/11/24 History alprazolam 0.25 mg tablet 0.25 mg PO TID Anxiety #90 tabs 11/24/23 02/11/24 Rx gabapentin 400 mg capsule 400 mg PO TID Pain #90 caps 11/24/23 02/11/24 Rx dextromethorphan-guaifenesin 10 10 ml PO Q6H PRN Cough 11/28/23 02/11/24 History mg-100 mg/5 mL oral liquid guaifenesin 400 mg tablet 400 mg PO DAILY #120 tabs 11/28/23 02/11/24 Rx lactulose 10 gram/15 mL oral 30 ml PO DAILY PRN Constipation 11/28/23 02/11/24 History solution multivitamin with minerals 1 cap PO DAILY 11/28/23 02/11/24 History sennosides 8.6 mg tablet (senna) 8.6 mg PO DAILY PRN Constipation 11/28/23 02/11/24 History buspirone 7.5 mg tablet 7.5 mg PO TID #90 tabs 01/14/24 02/11/24 Rx escitalopram oxalate 20 mg tablet 20 mg PO DAILY Depression 02/03/24 02/11/24 History (Lexapro) polyethylene glycol 3350 17 gram 17 g PO DAILY PRN Constipation 02/03/24 02/11/24 History oral powder packet prednisone 5 mg tablet 5 mg PO DAILY 02/04/24 02/11/24 History fluticasone fur. 100 mcg-umeclid 1 inh inhalation DAILY 30 days #1 02/06/24 02/11/24 Rx 62.5 mcg-vilant 25 mcg ea inhalat.powder (Trelegy Ellipta) furosemide 40 mg tablet (Lasix) 40 mg PO DAILY #5 tabs 02/06/24 02/11/24 Rx ipratropium 0.5 mg-albuterol 3 mg 3 ml inhalation Q6H shortness of 02/06/24 02/11/24 Rx (2.5 mg base)/3 mL nebulization breath 30 days #0 mL soln levofloxacin 750 mg tablet 750 mg PO DAILY 3 days #3 tabs 02/06/24 02/11/24 Rx New Prescriptions to Start Prescriptions: Height: 1.63 m Weight: 84.028 kg Laboratory Results:: Laboratory Results - last 24 hr 02/14/24 12:36: WBC 25.3 H*, RBC 4.35, Hgb 11.6 L, Hct 37.1, MCV 85.3, MCH 26.7 L, MCHC 31.3 L, RDW 17.1, Plt Count 355, MPV 8.8, Neut % (Auto) 90.6 H, Lymph % (Auto) 4.3 L, [place] % (Auto) 4.3, Eos % (Auto) 0.5, Baso % (Auto) 0.3, Neut # (Auto) 22.9 H, Lymph # (Auto) 1.1, [place] # (Auto) 1.1 H, Eos # (Auto) 0.1, Baso # (Auto) 0.1, Total Counted 100, Neutrophils % (Manual) 93 H, Lymphocytes % (Manual) 6 L, Monocytes % (Manual) 1 L, Platelet Estimate Normal, RBC Morphology Normal, Sodium 136, Potassium 3.9, Chloride 100, Carbon Dioxide 34 H, Anion Gap 5.9, BUN 10, Creatinine 0.60, Estimated Creat Clear 65, Estimated GFR 98, Est GFR ( Amer) 118, Glucose 125 H, Calcium 9.0, Total Bilirubin 0.4, AST 38 H, ALT 15, Alkaline Phosphatase 68, Troponin I < 0.01, NT-Pro-B Natriuret Pep 67.6, Total Protein 6.3, Albumin 3.3 L, Globulin 3.0, Albumin/Globulin Ratio 1.1 02/14/24 12:37: VBG pH 7.38, VBG pCO2 49.5, VBG pO2 31.3, VBG HCO3 28.8, VBG Total CO2 30.3 H, VBG O2 Saturation 54.6, VBG Base Excess 3.7 H, VBG Lactic Acid 1.4 02/14/24 18:04: SARS-CoV-2 (PCR) Not detected, Influenza A Untype (PCR) Not detected, Influenza Type B (PCR) Not detected Medical History: Medical History (Updated 02/10/24 @ 00:00 by Background Daemon) Asthma Congenital diverticulum of esophagus Anxiety Essential hypertension Arthritis Diverticulosis History of falling History of dysuria History of cystitis Migraine Rheumatoid arthritis Intervertebral disc disorder Schizoaffective disorder Depression Dysphagia GERD (gastroesophageal reflux disease) Nicotine dependence Hx MRSA infection Atherosclerotic cardiovascular disease Hypothyroid Emphysema/COPD Hypertension Hyperlipidemia Pseudomonas urinary tract infection Gram-negative infection Lumbar radiculopathy Toe pain, left Breast nodule Lung nodule Closed head injury Fall Community acquired pneumonia Respiratory failure with hypoxia and hypercapnia Sepsis with acute organ dysfunction Community acquired bacterial pneumonia Sepsis COPD exacerbation Aspiration pneumonia Esophageal diverticulum E. coli UTI (urinary tract infection) Hypokalemia SIRS (systemic inflammatory response syndrome) Cholelithiasis Colon, diverticulosis Emphysematous cystitis Abdominal pain UTI (urinary tract infection) Pneumonia Tobacco dependence Decreased mobility Urinary incontinence Low back pain radiating to both legs Obesity (BMI 30-39.9) COPD with acute exacerbation Staphylococcus aureus pneumonia Lung nodule seen on imaging study Acquired hypothyroidism Chronic low back pain Generalized anxiety disorder Cough Acute bronchitis RLL pneumonia Acute exacerbation of chronic obstructive airways disease Assessment and Plan Assessment and plan all Dx Assessment and Plan for all problems:: Pharmacokinetic dosing service Objective: Patient: Floor: Age: 73 yo Serum creatinine: 0.60 mg/dL Height: 64.0 Inches Weight (kg): 84 Assessment: IBW (kg): 54.70 Dosing wt(kg): 84 Estimated Creatinine clearance (ml/min): 71.0 CRCL method: Cockcroft and Gault using ibw(default). Drug selected: Vancomycin Loading dose (mg): Vd (liters): 67.2 (factor used: 0.8 L/kg) Jb (hr-1): 0.063 Half life (hrs): 11.00 CLvanco=?? 4.234 L/hr Recommended dose: 1750 mg Interval: 18 hrs Infusion time (hrs): 2.0 Predicted peak (mcg/mL): 36.1 Predicted trough (mcg/mL): 13.17 Total body weight is being used for vancomycin dosing. Recommendations: Give Vancomycin 1750 mg q 18 hrs with an expected Cpeak of 36.1 mcg/ml and an expected Ctrough of 13.17 mcg/ml AUC 0-24 /DEBORA Data: DEBORA 0.5 mcg/mL:?? AUC/DEBORA:? 1102.2 DEBORA 1.0 mcg/mL:?? AUC/DEBORA:? 551.1 --------- DEBORA 1.5 mcg/mL:?? AUC/DEBORA:? 367.4 DEBORA 2.0 mcg/mL:?? AUC/DEBORA:? 275.5 Thank you for the consult, will continue to follow. -MIGUELANGEL WINTER, PROD
[2024-02-14] MEDS: VANCOMYCIN CONSULT REQUEST 1 EACH NOTAPPLIC (14:34)
[2024-02-14 15:08] LABS: Microscopic, Urine URINE MICROSCOPIC (MICROSCOPIC)
[2024-02-14 15:11] LABS: Appearance,Urine CLEAR (Clear); Bilirubin,Urine Negative (Negative); Blood, Urine 1+ (Negative); Color,Urine YELLOW (Yellow); Glucose,Urine (UA) Negative (Negative); Ketones,Urine Negative (Negative); Leukocyte Esterase,Urine Negative (Negative); Nitrate,Urine Negative (Negative); PH,Urine 6.5 (5.0-8.5); Protein,Urine Negative (Negative); Specific Gravity, Urine 1.025 (1.005-1.030); Urobilinogen,Urine 0.2 EU/dl (0.2)
[2024-02-14] MEDS: VANCOMYCIN/WATER FOR INJ (PEG) 1.75 GM/350 ML PIGGYBACK IV (15:24)
--- NOTE | 2024-02-14 15:56 | PC.NURSE ---
ct read delayed d/t [facility] requesting more images , Sivakumar in radiology states he submitted the requested images but it knocked the read to the bottom of the list . States it is in read status now.
--- NOTE | 2024-02-14 16:04 | PC.NURSE ---
Dr. Fontana let staff know that he contact hospitalist, Dr. Shah, at [phone] and agrees to admit. Contacted house sitter for bed request.
--- NOTE | 2024-02-14 16:05 | PC.NURSE ---
CT reads are now back. Dr. Fontana notified.
--- NOTE | 2024-02-14 16:15 | PC.NURSE ---
Report called to BRYANNA Barksdale on Med Surg.
--- NOTE | 2024-02-14 16:41 | PC.NURSE ---
to be transported to inpatient bed at this
--- NOTE | 2024-02-14 16:47 | PC.NURSE ---
PT arrived to the floor at this time via stretcher
[2024-02-14 17:01] LABS: Troponin I < 0.01 ng/ml (0.00-0.034)
[2024-02-14] MEDS: HEPARIN SODIUM 5,000 UNIT/ML VIAL 5000 UNIT SQ ×2 (17:15→23:44)
--- NOTE | 2024-02-14 17:31 | EXP.EVENT.NO ---
patient and son wants to go home and wants to be dischagred and follow up with PCP, will dc on oral abx, patient to follow up with PCP, antiobiotics sent, patient son was counselled to stay 1 more night but they want to go home and medications sent to the pharmacy
--- NOTE | 2024-02-14 17:39 | P.HP_ITS ---
History of Present Illness *Admission Date: 02/14/24 *Reason for visit:: SOB *History of present illness: Patient is a 73-year-old female with past medical history of CHF schizophrenia who presents to the hospital due to shortness of breath, patient also has a history of COPD on 3 L baseline oxygen at home, patient presented to the emergency department for worsening shortness of breath. She has been having cough as well as shortness of breath which is not improving with her home inhal er therapy and patient was sent to the hospital for further evaluation. No reports of fevers chills. [facility] Disclaimer: The information contained in this section may have been updated after the patient was seen, as this information can be updated by other users. Medical History Asthma Congenital diverticulum of esophagus Anxiety Essential hypertension Arthritis Diverticulosis History of falling History of dysuria History of cystitis Migraine Rheumatoid arthritis Intervertebral disc disorder Schizoaffective disorder Depression Dysphagia GERD (gastroesophageal reflux disease) Nicotine dependence Hx MRSA infection Atherosclerotic cardiovascular disease Hypothyroid Emphysema/COPD Hypertension Hyperlipidemia Pseudomonas urinary tract infection Gram-negative infection Lumbar radiculopathy Toe pain, left Breast nodule Lung nodule Closed head injury Fall Community acquired pneumonia Respiratory failure with hypoxia and hypercapnia Sepsis with acute organ dysfunction Community acquired bacterial pneumonia Sepsis COPD exacerbation Aspiration pneumonia Esophageal diverticulum E. coli UTI (urinary tract infection) Hypokalemia SIRS (systemic inflammatory response syndrome) Cholelithiasis Colon, diverticulosis Emphysematous cystitis Abdominal pain UTI (urinary tract infection) Pneumonia Tobacco dependence Decreased mobility Urinary incontinence Low back pain radiating to both legs Obesity (BMI 30-39.9) COPD with acute exacerbation Staphylococcus aureus pneumonia Lung nodule seen on imaging study Acquired hypothyroidism Chronic low back pain Generalized anxiety disorder Cough Acute bronchitis RLL pneumonia Acute exacerbation of chronic obstructive airways disease Surgical History H/O: hysterectomy Family History Other Family history of cancer Social History Smoking Status: Unknown if ever smoked second hand exposure: Yes alcohol intake: former substance use type: denies use current occupational status: retired Travel in the last 8 weeks: None household members: family housing: intermediate diet: low salt caffeine: Yes Review of Systems Review of Systems Review of systems (narrative): as per HPI Meds Home Medications and Allergies Home Medications Medication Instructions Recorded Confirmed Type albuterol sulfate 90 mcg/actuation 2 puff inhalation Q4HP PRN 10/15/22 02/11/24 Rx aerosol inhaler (ProAir HFA) Shortness Of Breath Or Wheezing #8.5 grams aspirin 81 mg tablet,delayed 81 mg PO DAILY Heart disease #90 10/15/22 02/14/24 Rx release tabs cholecalciferol (vitamin D3) 25 25 mcg PO DAILY Supplement #90 caps 10/15/22 02/11/24 Rx mcg (1,000 unit) capsule pravastatin 20 mg tablet 20 mg PO HS Cholesterol #90 tabs 10/15/22 02/14/24 Rx acetaminophen 500 mg tablet 500 mg PO TID Pain 12/20/22 02/11/24 History levothyroxine 50 mcg tablet 50 mcg PO DAILY thyroid 03/28/23 02/14/24 History melatonin 3 mg tablet 3 mg PO HS SLEEP 03/28/23 02/14/24 History pantoprazole 40 mg tablet,delayed 40 mg PO DAILY Acid reflux 03/28/23 02/14/24 History release quetiapine 100 mg tablet 250 mg PO HS MOOD 03/28/23 02/11/24 History bupropion HCl 150 mg tablet,12 hr 150 mg PO BID #60 ea 05/29/23 02/11/24 Rx sustained-release (Wellbutrin SR) metoclopramide HCl 5 mg tablet 5 mg PO TID #90 tabs 07/10/23 02/14/24 Rx (Reglan) cetirizine 10 mg tablet 10 mg PO DAILY 09/08/23 02/11/24 History oxybutynin chloride 5 mg tablet 10 mg PO DAILY overactive bladder 10/14/23 02/14/24 History trazodone 100 mg tablet 100 mg PO HS 10/14/23 02/14/24 History alprazolam 0.25 mg tablet 0.25 mg PO TID Anxiety #90 tabs 11/24/23 02/11/24 Rx gabapentin 400 mg capsule 400 mg PO TID Pain #90 caps 11/24/23 02/14/24 Rx dextromethorphan-guaifenesin 10 10 ml PO Q6H PRN Cough 11/28/23 02/11/24 History mg-100 mg/5 mL oral liquid guaifenesin 400 mg tablet 400 mg PO DAILY #120 tabs 11/28/23 02/14/24 Rx lactulose 10 gram/15 mL oral 30 ml PO DAILY PRN Constipation 11/28/23 02/14/24 History solution multivitamin with minerals 1 cap PO DAILY 11/28/23 02/14/24 History sennosides 8.6 mg tablet (senna) 8.6 mg PO DAILY PRN Constipation 11/28/23 02/11/24 History buspirone 7.5 mg tablet 7.5 mg PO TID #90 tabs 01/14/24 02/14/24 Rx escitalopram oxalate 20 mg tablet 20 mg PO DAILY Depression 02/03/24 02/11/24 History (Lexapro) polyethylene glycol 3350 17 gram 17 g PO DAILY PRN Constipation 02/03/24 02/11/24 History oral powder packet prednisone 5 mg tablet 5 mg PO DAILY 02/04/24 02/14/24 History fluticasone fur. 100 mcg-umeclid 1 inh inhalation DAILY 30 days #1 02/06/24 02/11/24 Rx 62.5 mcg-vilant 25 mcg ea inhalat.powder (Trelegy Ellipta) furosemide 40 mg tablet (Lasix) 40 mg PO DAILY #5 tabs 02/06/24 02/11/24 Rx ipratropium 0.5 mg-albuterol 3 mg 3 ml inhalation Q6H shortness of 02/06/24 02/11/24 Rx (2.5 mg base)/3 mL nebulization breath 30 days #0 mL soln levofloxacin 750 mg tablet 750 mg PO DAILY 3 days #3 tabs 02/06/24 02/11/24 Rx New Prescriptions to Start Prescriptions: Allergies Allergy/AdvReac Type Severity Reaction Status Date / Time metronidazole Allergy Unknown I-HIVES Verified 02/11/24 10:51 nitrofurantoin Allergy Unknown Unknown Verified 02/11/24 10:51 [From MACROBID] allergy reaction Exam Data for Last 24 hours Vital signs and Labs for Last 24 Hours: Temp Pulse Resp BP Pulse Ox O2 Del Method O2 Flow Rate 98.1 F 76 22 112/41 L 90 L Non-Rebreather 15 02/14/24 17:20 02/14/24 17:20 02/14/24 17:20 02/14/24 17:20 02/14/24 17:20 02/14/24 17:20 02/14/24 17:20 FiO2 40 02/14/24 13:01 Laboratory Results - last 24 hr 02/14/24 12:36: WBC 25.3 H*, RBC 4.35, Hgb 11.6 L, Hct 37.1, MCV 85.3, MCH 26.7 L, MCHC 31.3 L, RDW 17.1, Plt Count 355, MPV 8.8, Neut % (Auto) 90.6 H, Lymph % (Auto) 4.3 L, [place] % (Auto) 4.3, Eos % (Auto) 0.5, Baso % (Auto) 0.3, Neut # (Auto) 22.9 H, Lymph # (Auto) 1.1, [place] # (Auto) 1.1 H, Eos # (Auto) 0.1, Baso # (Auto) 0.1, Total Counted 100, Neutrophils % (Manual) 93 H, Lymphocytes % (Manual) 6 L, Monocytes % (Manual) 1 L, Platelet Estimate Normal, RBC Morphology Normal, Sodium 136, Potassium 3.9, Chloride 100, Carbon Dioxide 34 H, Anion Gap 5.9, BUN 10, Creatinine 0.60, Estimated Creat Clear 65, Estimated GFR 98, Est GFR ( Amer) 118, Glucose 125 H, Calcium 9.0, Total Bilirubin 0.4, AST 38 H, ALT 15, Alkaline Phosphatase 68, Troponin I < 0.01, NT-Pro-B Natriuret Pep 67.6, Total Protein 6.3, Albumin 3.3 L, Globulin 3.0, Albumin/Globulin Ratio 1.1 02/14/24 12:37: VBG pH 7.38, VBG pCO2 49.5, VBG pO2 31.3, VBG HCO3 28.8, VBG Total CO2 30.3 H, VBG O2 Saturation 54.6, VBG Base Excess 3.7 H, VBG Lactic Acid 1.4 02/14/24 14:40: Urine Color Yellow, Urine Appearance Clear, Urine pH 6.5, Ur Specific [place] 1.025, Urine Protein Negative, Urine Glucose (UA) Negative, Urine Ketones Negative, Urine Blood 1+, Urine Nitrate Negative, Urine Bilirubin Negative, Urine Urobilinogen 0.2, Ur Leukocyte Esterase Negative, Urine RBC None, Urine WBC None, Ur Squamous Epith Cells None, Urine Bacteria None 02/14/24 15:52: Troponin I < 0.01 02/14/24 18:04: SARS-CoV-2 (PCR) Not detected, Influenza A Untype (PCR) Not detected, Influenza Type B (PCR) Not detected I & O for Last 24 hours: Intake & Output 02/11/24 02/12/24 02/13/24 02/14/24 23:59 23:59 23:59 23:59 Weight 84.935 kg Constitutional Constitutional: no acute distress *Routine HEENT Exam Head: Present normocephalic Eye: Present EOMI and PERRL ENT: Present mucous membranes moist *Routine Neck Exam Neck: Present supple; Absent lymphadenopathy *Routine Respiratory Exam Respiratory: Present distant breath sounds and diminished air movement *Routine Cardiovascular Exam Cardiovascular: Present RRR *Routine Abdominal Exam Abdominal: Present soft and normoactive bowel sounds; Absent tenderness *Routine Rectal Exam Rectal:: deferred *Routine Genitalia Exam Genitalia:: deferred *Routine Extremities Exam Extremities: Absent cyanosis, clubbing or edema *Routine Skin Exam Skin: Present warm; Absent rash *Routine Neurological Exam Neurological: Present alert and oriented X3 Assessment and Plan *Assessment and plan (1) Sepsis: Status: Acute Category: Medical Code(s): A41.9 - Sepsis, unspecified organism (2) Acute hypoxic respiratory failure: Status: Acute Category: Medical Code(s): J96.01 - Acute respiratory failure with hypoxia (3) Pneumonia: Status: Acute Category: Medical Code(s): J18.9 - Pneumonia, unspecified organism (4) Acute and chronic respiratory failure: Status: Acute Category: Medical Code(s): J96.20 - Acute and chronic respiratory failure, unspecified whether with hypoxia or hypercapnia (5) COPD (chronic obstructive pulmonary disease): Status: Acute Qualifiers: COPD type: unspecified COPD Qualified Code(s): J44.9 - Chronic obstructive pulmonary disease, unspecified Category: Medical Code(s): J44.9 - Chronic obstructive pulmonary disease, unspecified Plan Patient is a 73-year-old female with past medical history of CHF schizophrenia who presents to the hospital due to shortness of breath, patient also has a history of COPD on 3 L baseline oxygen at home, patient presented to the emergency department for worsening shortness of breath. She has been having cough as well as shortness of breath which is not improving with her home inhaler therapy and patient was sent to the hospital for further evaluation. No reports of fevers chills. Assessment and plan Sepsis present on admission Acute on chronic hypoxic respiratory failure secondary to pneumonia Masslike consolidation right lung concerning for carcinoma Suspect pneumonia COPD exacerbation Plan Start vancomycin, cefepime Continue oxygen supplementation DuoNeb every 4 hours Check PCT, MRSA nasal swab, Check a sputum cultures Consult pulmonary History of CHF Continue diuretics
--- NOTE | 2024-02-14 17:56 | PC.NURSE ---
pt showing periods of confusion. pt resting in bed. nc @6L in place for pt to eat. pt currently satting 90%. call guzman within reach.
[2024-02-14] MEDS: CEFEPIME HCL 2 GM in 0.9 % SODIUM CHLORIDE 100 ML IV (18:24)
[2024-02-14 19:40] LABS: Troponin I < 0.01 ng/ml (0.00-0.034)
--- NOTE | 2024-02-14 21:15 | PC.NURSE ---
Pt keeps removing O2 mask despite multiple attempts to educate pt on imprrtance of wearing mask and O2 needs, Pt switched to 6L NC at this time per RT
--- NOTE | 2024-02-14 21:38 | PC.NURSE ---
Contacted LARISSA Sanabria with concerns for pt amount of medications and mg to give, meds held at this time per [employer] orders.
[2024-02-14] MEDS: PRAVASTATIN 20MG TAB 20 MG PO (22:03)
[2024-02-14] MEDS: METOCLOPRAMIDE 5MG TABLET 5 MG PO (22:04)
[2024-02-14] MEDS: DEXTROMETHORPHAN GUAIFENESIN 10 EACH PO (23:21)
[2024-02-15] VITALS (12 sets, daily range): BP systolic 108–153; BP diastolic 42–69; PULSE 70–86; RESP 18–22; TEMP 36.3–37.1; O2SAT 88–97; BMI 29.8
[2024-02-15] MEDS: CEFEPIME HCL 2 GM in 0.9 % SODIUM CHLORIDE 100 ML IV ×3 (01:20→16:22)
--- NOTE | 2024-02-15 03:00 | PC.NURSE ---
Pt is alert to self at times and has moderate confusion. at the start of the shift pt was wearing a venturi mask @ 50%. Pt was not tolerating well and became uncooperative, pt kept taking mask on despite multiple attempts to redirect pt to keep on. RT applied 6L NC, pt has been able to tolerate since. Pt did c/o coughing and request cough syrup, pt was treated per JAN. Pt denies pain and needs at this time
[2024-02-15] MEDS: IPRATROPIUM/ALBUTEROL 3 ML NEB IH ×4 (07:02→23:46)
[2024-02-15 07:31] LABS: Chloride 103 mmol/L (98-107); Potassium 3.9 mmoL/L (3.5-5.1); Sodium 137 mmol/L (136-145)
[2024-02-15 07:34] LABS: Anion Gap 5.9 mEq/L (5-15); Blood Urea Nitrogen 10 mg/dl (7-17); Calcium 8.7 mg/dl (8.4-10.2); Carbon Dioxide 32 mmol/L (22.0-30.0); Creatinine Clearance Estimated 67 mL/min (50-200); Estimated Glomerular Filt Rate 98 ml/min (>60); GFR (African American) 118 ML/MIN (>60); Glucose 114 mg/dl (74-100)
[2024-02-15 07:40] LABS: Basophils % 0.2 % (0.1-2.0); Neutrophils # 14.1 K/mm3 (1.8-7.8)
[2024-02-15 07:48] LABS: Hematocrit 33.5 % (37.0-47.0); Lymphocytes # 1.4 K/mm3 (0.7-4.5); Lymphocytes % 8.4 % (10-50); Mean Corpuscular HGB Conc 30.1 g/dL (31.8-35.4); Mean Corpuscular Volume 86.5 fl (81-99); Mean Platelet Volume 7.4 fl (7.4-10.4); Monocytes # 0.9 K/mm3 (0.1-1.0); Monocytes % 5.2 % (1.7-9.3); Neutrophils % 86.2 % (37.0-80.0); Platelet Count 352 K/mm3 (142-424); Red Blood Count 3.88 M/mm3 (4.20-5.40); Red Cell Distribution Width 17.2 % (11.5-17.5); White Blood Count 16.4 K/mm3 (4.8-10.8)
[2024-02-15 07:49] LABS: Hemoglobin 10.1 g/dL (12.2-16.2)
[2024-02-15 07:50] LABS: MANUAL DIFFERENTIAL MANUAL DIFFERENTIAL (MANUAL DIFF)
[2024-02-15] MEDS: VANCOMYCIN/WATER FOR INJ (PEG) 1.75 GM/350 ML PIGGYBACK IV (08:27)
[2024-02-15 08:38] LABS: Hypochromasia 1+; Lymphocytes % 18 % (10-50); Monocytes % 1 % (2-9); Neutrophils % 81 % (42-76); Platelet Estimate Normal; Total Cells Counted 100
[2024-02-15] MEDS: FLUTICASONE/UMECLIDIN/VILANTER 100/62.5/25MCG INHALER 1 PUFF IH (09:13)
[2024-02-15] MEDS: ALPRAZolam 0.25MG TABLET 0.25 MG PO ×2 (09:15→12:01)
[2024-02-15] MEDS: BUSPIRONE HCL 5 MG TABLET 7.5 MG PO ×3 (09:15→20:36)
[2024-02-15] MEDS: buPROPion HCl SR 150MG TAB 150 MG PO ×2 (09:15→20:37)
[2024-02-15] MEDS: ASPIRIN EC 81MG TABLET 81 MG PO (09:15)
[2024-02-15] MEDS: CHOLECALCIFEROL 1,000 UNITS (25MCG) TABLET 25 MCG PO (09:16)
[2024-02-15] MEDS: CITALOPRAM 40MG TABLET 40 MG PO (09:16)
[2024-02-15] MEDS: METOCLOPRAMIDE 5MG TABLET 5 MG PO ×3 (09:17→20:37)
[2024-02-15] MEDS: GABAPENTIN 400MG CAPSULE 400 MG PO ×2 (09:17→12:02)
[2024-02-15] MEDS: LEVOTHYROXINE 50MCG (0.05MG) TAB 50 MCG PO (09:17)
[2024-02-15] MEDS: LORATADINE 10MG TABLET 10 MG PO (09:17)
[2024-02-15] MEDS: predniSONE 5MG TAB 5 MG PO (09:18)
[2024-02-15] MEDS: OXYBUTYNIN 5MG TAB 10 MG PO (09:18)
[2024-02-15] MEDS: HEPARIN SODIUM 5,000 UNIT/ML VIAL 5000 UNIT SQ ×2 (09:23→16:22)
--- NOTE | 2024-02-15 12:01 | P.CONPHA_ITS ---
Pharmacy Intervention Comments: MEDICATION RECONCILIATION COMPLETED ON PATIENT USING MAR FROM [facility] AND DISCHARGE SUMMARY FROM PREVIOUS ADMISSION. -MIGUELANGEL WINTER, PROD
--- NOTE | 2024-02-15 12:01 | HMH.PHAINT1 ---
Pharmacy Intervention Comments: MEDICATION RECONCILIATION COMPLETED ON PATIENT USING MAR FROM [facility] AND DISCHARGE SUMMARY FROM PREVIOUS ADMISSION. -MIGUELANGEL WINTER, PROD
--- NOTE | 2024-02-15 14:50 | EXP.PN ---
Subjective *Date: 02/15/24 *Time: 14:50 Interval history: seen at bedside, feels better, denied CP, SOB, N/V Exam Data for Last 24 hours Vital signs and Labs for Last 24 Hours: Temp Pulse Resp BP Pulse Ox O2 Del Method O2 Flow Rate 97.6 F 80 20 111/42 L 91 L Nasal Cannula 2 02/15/24 12:00 02/15/24 12:00 02/15/24 12:00 02/15/24 12:00 02/15/24 12:00 02/15/24 14:38 02/15/24 14:38 FiO2 40 02/14/24 13:01 Laboratory Results - last 24 hr 02/14/24 14:40: Urine Color Yellow, Urine Appearance Clear, Urine pH 6.5, Ur Specific [place] 1.025, Urine Protein Negative, Urine Glucose (UA) Negative, Urine Ketones Negative, Urine Blood 1+, Urine Nitrate Negative, Urine Bilirubin Negative, Urine Urobilinogen 0.2, Ur Leukocyte Esterase Negative, Urine RBC None, Urine WBC None, Ur Squamous Epith Cells None, Urine Bacteria None 02/14/24 15:52: Troponin I < 0.01 02/14/24 19:00: Troponin I < 0.01 02/15/24 07:05: WBC 16.4 H D, RBC 3.88 L, Hgb 10.1 L D, Hct 33.5 L, MCV 86.5, MCH 26.0 L, MCHC 30.1 L, RDW 17.2, Plt Count 352, MPV 7.4, Neut % (Auto) 86.2 H, Lymph % (Auto) 8.4 L, [place] % (Auto) 5.2, Eos % (Auto) 0.0 L, Baso % (Auto) 0.2, Neut # (Auto) 14.1 H, Lymph # (Auto) 1.4, [place] # (Auto) 0.9, Eos # (Auto) 0.0, Baso # (Auto) 0.0, Total Counted 100, Neutrophils % (Manual) 81 H, Lymphocytes % (Manual) 18, Monocytes % (Manual) 1 L, Platelet Estimate Normal, Hypochromasia 1+, Sodium 137, Potassium 3.9, Chloride 103, Carbon Dioxide 32 H, Anion Gap 5.9, BUN 10, Creatinine 0.60, Estimated Creat Clear 67, Estimated GFR 98, Est GFR ( Amer) 118, Glucose 114 H, Calcium 8.7 I & O for Last 24 hours: Intake & Output 02/12/24 02/13/24 02/14/24 02/15/24 23:59 23:59 23:59 23:59 Intake Total 510 / 510 120 / 120 Output Total 700 / 700 Balance 510 / 510 -580 / -580 Weight 84.935 kg 86.228 kg Constitutional Constitutional: no acute distress *Routine HEENT Exam Head: Present normocephalic Eye: Present EOMI and PERRL ENT: Present mucous membranes moist *Routine Neck Exam Neck: Present supple; Absent lymphadenopathy *Routine Respiratory Exam Respiratory: Present distant breath sounds and diminished air movement *Routine Cardiovascular Exam Cardiovascular: Present RRR *Routine Abdominal Exam Abdominal: Present soft and normoactive bowel sounds; Absent tenderness *Routine Extremities Exam Extremities: Absent cyanosis, clubbing or edema *Routine Skin Exam Skin: Present warm; Absent rash *Routine Neurological Exam Neurological: Present alert and oriented X3 Assessment and Plan *Assessment and plan (1) Sepsis: Status: Acute Category: Medical Code(s): A41.9 - Sepsis, unspecified organism (2) Acute hypoxic respiratory failure: Status: Acute Category: Medical Code(s): J96.01 - Acute respiratory failure with hypoxia (3) Pneumonia: Status: Acute Category: Medical Code(s): J18.9 - Pneumonia, unspecified organism (4) Acute and chronic respiratory failure: Status: Acute Category: Medical Code(s): J96.20 - Acute and chronic respiratory failure, unspecified whether with hypoxia or hypercapnia (5) COPD (chronic obstructive pulmonary disease): Status: Acute Qualifiers: COPD type: unspecified COPD Qualified Code(s): J44.9 - Chronic obstructive pulmonary disease, unspecified Category: Medical Code(s): J44.9 - Chronic obstructive pulmonary disease, unspecified Plan Patient is a 73-year-old female with past medical history of CHF schizophrenia who presents to the hospital due to shortness of breath, patient also has a history of COPD on 3 L baseline oxygen at home, patient presented to the emergency department for worsening shortness of breath. She has been having cough as well as shortness of breath which is not improving with her home inhaler therapy and patient was sent to the hospital for further evaluation. No reports of fevers chills. Assessment and plan Sepsis present on admission Acute on chronic hypoxic respiratory failure secondary to pneumonia Mass like consolidation right lung concerning for carcinoma Suspect pneumonia COPD exacerbation Plan Start vancomycin, cefepime Continue oxygen supplementation DuoNeb every 4 hours Check PCT, MRSA nasal swab, Check a sputum cultures Consult pulmonary History of CHF Continue diuretics plan 02/15/2024 - continue breathing treatments, consult PT/OT, await pulmonary recommendationsm wean oxygen as tolerated, patient lives at [place] facility, dc 1-2 days pending improvement
[2024-02-15] MEDS: PRENATAL MULTIVITAMIN W/IRON 1 EACH PO (16:22)
--- NOTE | 2024-02-15 18:08 | PC.NURSE ---
PT REMAINS A&OX3. INTERMITTENT CONFUSION NOTED. BEEN ABLE TO WEAN TO 2LNC. TOLERATING WELL. HAS REMAINED IN BED THIS SHIFT, PURE WICK IN PLACE DRAINING YELLOW URINE. PT HAS HAD NO NEEDS OR C/O THUS FAR. VSS.
[2024-02-15] MEDS: TRAZODONE 50MG TABLET 100 MG PO (20:36)
[2024-02-15] MEDS: MELATONIN 5MG TABLET 5 MG PO (20:37)
[2024-02-15] MEDS: PRAVASTATIN 20MG TAB 20 MG PO (20:38)
[2024-02-15] MEDS: GUAIFENESIN/DEXTROMETHORPHAN 200MG/20MG 10ML UDC 10 ML PO (20:44)
[2024-02-16] VITALS (10 sets, daily range): BP systolic 125–152; BP diastolic 59–74; PULSE 63–91; RESP 18–20; TEMP 36.4–36.9; O2SAT 89–98; BMI 29.8
[2024-02-16] MEDS: HEPARIN SODIUM 5,000 UNIT/ML VIAL 5000 UNIT SQ ×3 (00:08→16:20)
[2024-02-16] MEDS: CEFEPIME HCL 2 GM in 0.9 % SODIUM CHLORIDE 100 ML IV ×3 (00:08→16:20)
--- NOTE | 2024-02-16 00:57 | PC.NURSE ---
Pt O2 @ 89%, applied 2L of O2 at this time
[2024-02-16] MEDS: VANCOMYCIN/WATER FOR INJ (PEG) 1.75 GM/350 ML PIGGYBACK IV ×2 (02:07→21:06)
--- NOTE | 2024-02-16 05:55 | PC.NURSE ---
Pt sating at 97% attempting to wean pt from O2 removed NC at this time.
[2024-02-16] MEDS: FLUTICASONE/UMECLIDIN/VILANTER 100/62.5/25MCG INHALER 1 PUFF IH (05:58)
[2024-02-16] MEDS: IPRATROPIUM/ALBUTEROL 3 ML NEB IH ×3 (05:58→18:54)
[2024-02-16] MEDS: LEVOTHYROXINE 50MCG (0.05MG) TAB 50 MCG PO (06:09)
[2024-02-16 06:29] LABS: Chloride 111 mmol/L (98-107); Potassium 3.7 mmoL/L (3.5-5.1); Sodium 138 mmol/L (136-145)
[2024-02-16 06:30] LABS: Basophils # 0.1 K/mm3 (0-0.2); Basophils % 0.5 % (0.1-2.0); Eosinophils # 0.2 K/mm3 (0.0-0.4); Eosinophils % 1.2 % (0.1-12.0); Hematocrit 32.9 % (37.0-47.0); Hemoglobin 10.3 g/dL (12.2-16.2); Lymphocytes % 20.8 % (10-50); Mean Corpuscular HGB Conc 31.3 g/dL (31.8-35.4); Mean Corpuscular Hemoglobin 26.4 pg (27.0-31.2); Mean Corpuscular Volume 84.3 fl (81-99); Monocytes % 7.1 % (1.7-9.3); Neutrophils # 10.2 K/mm3 (1.8-7.8); Neutrophils % 70.4 % (37.0-80.0); Platelet Count 438 K/mm3 (142-424); Red Cell Distribution Width 17.2 % (11.5-17.5); White Blood Count 14.5 K/mm3 (4.8-10.8)
[2024-02-16 06:32] LABS: Anion Gap 4.7 mEq/L (5-15); Blood Urea Nitrogen 15 mg/dl (7-17); Carbon Dioxide 26 mmol/L (22.0-30.0); Creatinine Clearance Estimated 67 mL/min (50-200); Estimated Glomerular Filt Rate 98 ml/min (>60); GFR (African American) 118 ML/MIN (>60)
[2024-02-16 06:33] LABS: Calcium 8.3 mg/dl (8.4-10.2); Glucose 74 mg/dl (74-100)
[2024-02-16] MEDS: ONDANSETRON 4MG/2ML VIAL 4 MG IV (06:52)
--- NOTE | 2024-02-16 07:41 | SW/DCPLANNER ---
Addendum entered by Dinorah Reardon 02/17/24 15:27: Jolie/Sania w/ [facility] have stated that due to patient being MRSA pneumonia positive she will require a private room which is not currently available. Jolie/Sania are working to make movements within the facility and will contact me back. Addendum entered by Dinorah Reardon 02/17/24 10:28: I have updated Sania galaviz/ [facility] that patient will return I[facility] level of care today. Original Note: This patient currently resides at [facility] I[facility] level of care. Updated patient information has been faxed to Sania galaviz/ [facility]. I will continue to follow up w/ MD betty and [facility].
[2024-02-16] MEDS: GABAPENTIN 400MG CAPSULE 400 MG PO ×3 (08:11→21:09)
[2024-02-16] MEDS: METOCLOPRAMIDE 5MG TABLET 5 MG PO ×3 (08:12→21:09)
[2024-02-16] MEDS: LORATADINE 10MG TABLET 10 MG PO (08:12)
[2024-02-16] MEDS: predniSONE 5MG TAB 5 MG PO (08:12)
[2024-02-16] MEDS: buPROPion HCl SR 150MG TAB 150 MG PO ×2 (08:12→21:08)
[2024-02-16] MEDS: ASPIRIN EC 81MG TABLET 81 MG PO (08:12)
[2024-02-16] MEDS: CITALOPRAM 40MG TABLET 40 MG PO (08:12)
[2024-02-16] MEDS: CHOLECALCIFEROL 1,000 UNITS (25MCG) TABLET 25 MCG PO (08:12)
[2024-02-16] MEDS: BUSPIRONE HCL 5 MG TABLET 7.5 MG PO ×3 (08:13→21:07)
[2024-02-16] MEDS: ALPRAZolam 0.25MG TABLET 0.25 MG PO ×3 (08:13→21:06)
[2024-02-16] MEDS: OXYBUTYNIN 5MG TAB 10 MG PO (08:13)
--- NOTE | 2024-02-16 08:58 | P.CONS_ITS ---
History of Present Illness History of present illness: Ms. Sommer is a 73-year-old female with COPD chronic hypoxic respiratory failure at baseline 3 L oxygen supplementation, hypertension dyslipidemia recently admitted to the hospital late January 2024 for pneumonia status post discharged on levofloxacin presented to the ER with worsening respiratory distress. Pt is a poor historian. She mentioned that she did not have any respiratory distress however was found at the end of the hallway at senior living all by herself and thats the reason for hospital admission. [facility] Disclaimer: The information contained in this section may have been updated after the patient was seen, as this information can be updated by other users. Medical History (Updated 02/16/24 @ 11:02 by Jannie Pena MD) History of smoking 30 or more pack years MRSA pneumonia Asthma Congenital diverticulum of esophagus Anxiety Essential hypertension Arthritis Diverticulosis History of falling History of dysuria History of cystitis Migraine Rheumatoid arthritis Intervertebral disc disorder Schizoaffective disorder Depression Dysphagia GERD (gastroesophageal reflux disease) Nicotine dependence Hx MRSA infection Atherosclerotic cardiovascular disease Hypothyroid Emphysema/COPD Hypertension Hyperlipidemia Pseudomonas urinary tract infection Gram-negative infection Lumbar radiculopathy Toe pain, left Breast nodule Lung nodule Closed head injury Fall Community acquired pneumonia Respiratory failure with hypoxia and hypercapnia Sepsis with acute organ dysfunction Community acquired bacterial pneumonia Sepsis COPD exacerbation Aspiration pneumonia Esophageal diverticulum E. coli UTI (urinary tract infection) Hypokalemia SIRS (systemic inflammatory response syndrome) Cholelithiasis Colon, diverticulosis Emphysematous cystitis Abdominal pain UTI (urinary tract infection) Pneumonia Tobacco dependence Decreased mobility Urinary incontinence Low back pain radiating to both legs Obesity (BMI 30-39.9) COPD with acute exacerbation Staphylococcus aureus pneumonia Lung nodule seen on imaging study Acquired hypothyroidism Chronic low back pain Generalized anxiety disorder Cough Acute bronchitis RLL pneumonia Acute exacerbation of chronic obstructive airways disease Surgical History H/O: hysterectomy Family History Other Family history of cancer Social History Smoking Status: Unknown if ever smoked second hand exposure: Yes alcohol intake: former substance use type: denies use current occupational status: retired Travel in the last 8 weeks: None household members: family housing: senior living diet: low salt caffeine: Yes Review of Systems Eyes Eyes: Denies eye discharge, Denies dry eyes, Denies irritation and Denies itchy eyes ENT Ears, Nose, Mouth, and Throat: Denies epistaxis, Denies facial pain, Denies lip swelling and Denies throat swelling *Cardiovascular Cardiovascular: Reports dyspnea and Reports dyspnea on exertion *Respiratory Respiratory: Reports chest congestion, Reports cough, Reports dyspnea, Reports dyspnea on exertion, Denies excessive phlegm production and Denies wheezing *Gastrointestinal Gastrointestinal: Denies abdominal pain, Denies belching and Denies cramping *Musculoskeletal Musculoskeletal: Reports back pain, Reports myalgias and Reports other (No small joint swelling or Pain) Psychiatric Psychiatric: Denies homicidal ideation and Denies suicidal ideation Endocrine Endocrine: Denies heat intolerance Hematologic/Lymphatic Hematologic/Lymphatic: Denies easy bleeding and Denies lymphadenopathy Allergic/Immunologic Allergic/Immunologic: Denies itchy eyes, Denies lip swelling, Denies throat swelling and Denies wheezing Pulmonology Exam Inpatient Vital signs and Labs for Last 24 Hours: Temp Pulse Resp BP Pulse Ox O2 Del Method O2 Flow Rate 98.4 F 90 20 127/64 91 L Room Air 2 02/16/24 08:00 02/16/24 08:00 02/16/24 08:00 02/16/24 08:00 02/16/24 08:00 02/16/24 08:27 02/16/24 06:37 FiO2 40 02/14/24 13:01 Laboratory Results - last 24 hr 02/16/24 06:02: WBC 14.5 H, RBC 3.90 L, Hgb 10.3 L, Hct 32.9 L, MCV 84.3, MCH 26.4 L, MCHC 31.3 L, RDW 17.2, Plt Count 438 H, MPV 8.0, Neut % (Auto) 70.4, Lymph % (Auto) 20.8, [place] % (Auto) 7.1, Eos % (Auto) 1.2, Baso % (Auto) 0.5, [place] # (Auto) 10.2 H, Lymph # (Auto) 3.0, [place] # (Auto) 1.0, Eos # (Auto) 0.2, Baso # (Auto) 0.1, Sodium 138, Potassium 3.7, Chloride 111 H, Carbon Dioxide 26, Anion Gap 4.7 L, BUN 15 D, Creatinine 0.60, Estimated Creat Clear 67, Estimated GFR 98, Est GFR ( Amer) 118, Glucose 74 D, Calcium 8.3 L I & O for Labs for Last 24 Hours: Intake & Output 02/13/24 02/14/24 02/15/24 02/16/24 23:59 23:59 23:59 23:59 Intake Total 510 / 510 480 / 940 580 / 580 Output Total 1500 / 1500 Balance 510 / 510 -1020 / -560 580 / 580 Weight 187 lb 4 oz 190 lb 1.6 oz 190 lb 1.603 oz Microbiology Reports for the Last 24 Hours: Microbiology 02/14/24 12:51 Blood Blood Culture - Preliminary Constitutional: Present moderate distress Head: Present normocephalic and atraumatic ENT: Present normal exam, normal oropharynx and mucous membranes moist Neck: Present normal inspection and full ROM Respiratory: Present respiratory distress, rhonchi and able to speak in complete sentences; Absent prolonged expiratory phase or wheezes Cardiac: Present S1/S2, Tachycardia and radial pulses present GI: Present soft and distention; Absent tenderness or guarding Rectal (female): Present deferred (female): Present deferred Skin: Present intact; Absent cyanosis or jaundice Neuro: Present alert, awake and oriented x 3 Extremities: Present normal inspection; Absent clubbing or cyanosis Psychiatric: Present normal affect and cooperative Meds Home Medications and Allergies Home Medications Medication Instructions Recorded Confirmed Type albuterol sulfate 90 mcg/actuation 2 puff inhalation Q4HP PRN 10/15/22 02/14/24 Rx aerosol inhaler (ProAir HFA) Shortness Of Breath Or Wheezing #8.5 grams aspirin 81 mg tablet,delayed 81 mg PO DAILY Heart disease #90 10/15/22 02/14/24 Rx release tabs cholecalciferol (vitamin D3) 25 25 mcg PO DAILY Supplement #90 caps 10/15/22 02/14/24 Rx mcg (1,000 unit) capsule pravastatin 20 mg tablet 20 mg PO HS Cholesterol #90 tabs 10/15/22 02/14/24 Rx acetaminophen 500 mg tablet 500 mg PO TID 12/20/22 02/14/24 History levothyroxine 50 mcg tablet 50 mcg PO DAILY 03/28/23 02/14/24 History melatonin 3 mg tablet 3 mg PO HS 03/28/23 02/14/24 History pantoprazole 40 mg tablet,delayed 40 mg PO DAILY 03/28/23 02/14/24 History release quetiapine 100 mg tablet 250 mg PO HS 03/28/23 02/14/24 History bupropion HCl 150 mg tablet,12 hr 150 mg PO BID #60 ea 05/29/23 02/15/24 Rx sustained-release (Wellbutrin SR) metoclopramide HCl 5 mg tablet 5 mg PO TID #90 tabs 07/10/23 02/14/24 Rx (Reglan) cetirizine 10 mg tablet 10 mg PO DAILY 09/08/23 02/14/24 History oxybutynin chloride 5 mg tablet 10 mg PO DAILY 10/14/23 02/14/24 History trazodone 100 mg tablet 100 mg PO HS 10/14/23 02/14/24 History alprazolam 0.25 mg tablet 0.25 mg PO TID Anxiety #90 tabs 11/24/23 02/14/24 Rx gabapentin 400 mg capsule 400 mg PO TID Pain #90 caps 11/24/23 02/14/24 Rx dextromethorphan-guaifenesin 10 10 ml PO Q6H PRN Cough 11/28/23 02/14/24 History mg-100 mg/5 mL oral liquid guaifenesin 400 mg tablet 400 mg PO DAILY #120 tabs 11/28/23 02/14/24 Rx lactulose 10 gram/15 mL oral 30 ml PO DAILYP PRN Constipation 11/28/23 02/15/24 History solution multivitamin with minerals 1 cap PO DAILY 11/28/23 02/14/24 History sennosides 8.6 mg tablet (senna) 8.6 mg PO DAILY PRN Constipation 11/28/23 02/14/24 History buspirone 7.5 mg tablet 7.5 mg PO TID #90 tabs 01/14/24 02/14/24 Rx escitalopram oxalate 20 mg tablet 20 mg PO DAILY 02/03/24 02/14/24 History (Lexapro) polyethylene glycol 3350 17 gram 17 g PO DAILY PRN Constipation 02/03/24 02/14/24 History oral powder packet prednisone 5 mg tablet 5 mg PO DAILY 02/04/24 02/14/24 History fluticasone fur. 100 mcg-umeclid 1 inh inhalation DAILY 30 days #1 02/06/24 02/14/24 Rx 62.5 mcg-vilant 25 mcg ea inhalat.powder (Trelegy Ellipta) ipratropium 0.5 mg-albuterol 3 mg 3 ml inhalation Q6H 02/16/24 02/14/24 History (2.5 mg base)/3 mL nebulization soln New Prescriptions to Start Prescriptions: Allergies Allergy/AdvReac Type Severity Reaction Status Date / Time metronidazole Allergy Unknown I-HIVES Verified 02/11/24 10:51 nitrofurantoin Allergy Unknown Unknown Verified 02/11/24 10:51 [From MACROBID] allergy reaction Results Laboratory Findings 02/16/24 08:46 02/16/24 08:46 Abnormal lab findings: Abnormal Labs 02/14/24 02/14/24 02/15/24 12:36 12:37 07:05 WBC 25.3 H* 16.4 H D RBC 3.88 L Hgb 11.6 L 10.1 L D Hct 33.5 L MCH 26.7 L 26.0 L MCHC 31.3 L 30.1 L Plt Count Neut % (Auto) 90.6 H 86.2 H Lymph % (Auto) 4.3 L 8.4 L Eos % (Auto) 0.0 L Neut # (Auto) 22.9 H 14.1 H [place] # (Auto) 1.1 H Neutrophils % (Manual) 93 H 81 H Lymphocytes % (Manual) 6 L Monocytes % (Manual) 1 L 1 L VBG Total CO2 30.3 H VBG Base Excess 3.7 H Chloride Carbon Dioxide 34 H 32 H Anion Gap Glucose 125 H 114 H Calcium AST 38 H Albumin 3.3 L 02/16/24 06:02 WBC 14.5 H RBC 3.90 L Hgb 10.3 L Hct 32.9 L MCH 26.4 L MCHC 31.3 L Plt Count 438 H Neut % (Auto) Lymph % (Auto) Eos % (Auto) Neut # (Auto) 10.2 H [place] # (Auto) Neutrophils % (Manual) Lymphocytes % (Manual) Monocytes % (Manual) VBG Total CO2 VBG Base Excess Chloride 111 H Carbon Dioxide Anion Gap 4.7 L Glucose Calcium 8.3 L AST Albumin Assessment and Plan *Assessment and plan (1) MRSA pneumonia: Status: Acute Category: Medical Code(s): J15.212 - Pneumonia due to Methicillin resistant Staphylococcus aureus (2) Acute and chronic respiratory failure with hypoxia: Status: Resolved Category: Medical Code(s): J96.21 - Acute and chronic respiratory failure with hypoxia (3) History of smoking 30 or more pack years: Status: Acute Category: Social Hx Code(s): Z87.891 - Personal history of nicotine dependence Plan Ms. Sommer is a 73-year-old female greater than [id number]-[id number] smoking history, last moved around 2011, carries a diagnosis of COPD chronic hypoxic respiratory failure at baseline 3 L oxygen supplementation, hypertension dyslipidemia recently admitted to the hospital late January 2024 for pneumonia status post discharged on levofloxacin presented to the ER with worsening respiratory distress. CTA upon admission no evidence of pulmonary embolism. Noted to have right upper lobe spiculated nodule. Also noted bilateral subpleural interstitial changes bronchiectasis and predominant left lower lobe bronchial thickening and endobronchial mucous plugging with atelectasis. The noted findings appear to be worsening from her most recent CT from January 2024. COVID-19 and flu PCR negative. Neutrophilic leukocytosis upon admission. Improving. Venous blood gas from admission did not show any evidence of hypoxic/hypercarbic respiratory failure. Baseline oxygen supplementation Patient on admission was initiated on vancomycin and cefepime pending culture results. She is also receiving prednisone 5 mg daily. Sputum culture from most recent admission grew MRSA sensitive to Bactrim and vancomycin and also strep Pnemumonia. Plan: -Initiate chest percussion therapy 3 times daily along with Mucomyst twice daily -DuoNebs every 6 hours on a scheduled basis -Continue current antibiotics including vancomycin and cefepime pending culture results. Will need of 14 days of Abx upon discharge. -Continue oxygen supplementation to maintain O2 saturation goal of 90% and above
[2024-02-16 08:59] LABS: Basophils # 0.1 K/mm3 (0-0.2); Basophils % 0.7 % (0.1-2.0); Eosinophils # 0.2 K/mm3 (0.0-0.4); Eosinophils % 1.1 % (0.1-12.0); Hematocrit 32.7 % (37.0-47.0); Hemoglobin 10.4 g/dL (12.2-16.2); Lymphocytes # 2.4 K/mm3 (0.7-4.5); Lymphocytes % 18.5 % (10-50); Mean Corpuscular HGB Conc 31.6 g/dL (31.8-35.4); Mean Corpuscular Hemoglobin 26.9 pg (27.0-31.2); Mean Corpuscular Volume 85.1 fl (81-99); Mean Platelet Volume 7.8 fl (7.4-10.4); Monocytes # 0.8 K/mm3 (0.1-1.0); Monocytes % 6.2 % (1.7-9.3); Neutrophils # 9.7 K/mm3 (1.8-7.8); Neutrophils % 73.6 % (37.0-80.0); Platelet Count 414 K/mm3 (142-424); Red Blood Count 3.84 M/mm3 (4.20-5.40); Red Cell Distribution Width 17.2 % (11.5-17.5); White Blood Count 13.2 K/mm3 (4.8-10.8)
[2024-02-16 09:04] LABS: Chloride 110 mmol/L (98-107); Sodium 139 mmol/L (136-145)
[2024-02-16 09:05] LABS: Potassium 3.6 mmoL/L (3.5-5.1)
[2024-02-16 09:07] LABS: Blood Urea Nitrogen 13 mg/dl (7-17); Creatinine Clearance Estimated 67 mL/min (50-200); Estimated Glomerular Filt Rate 98 ml/min (>60); GFR (African American) 118 ML/MIN (>60)
[2024-02-16 09:08] LABS: Anion Gap 6.6 mEq/L (5-15); Calcium 8.5 mg/dl (8.4-10.2); Carbon Dioxide 26 mmol/L (22.0-30.0); Glucose 98 mg/dl (74-100)
[2024-02-16 09:34] LABS: Vancomycin,Peak 25.2 ug/ml (11-39)
--- NOTE | 2024-02-16 09:50 | DIET.NUTRFU ---
Reviewing patient's chart form [facility], she is on MSOFT, CROW diet with proheal 30ml daily and house supplement 60ml TID. Changed diet to MSOFT, 2gmNa and will eval for need of supplements.
--- NOTE | 2024-02-16 14:05 | P.PN_ITS ---
Subjective *Date: 02/16/24 *Time: 14:05 Interval history: seen at bedside, feels better, no acute events overnight, on 2L NC today, denied CP, SOB, N/V Exam Data for Last 24 hours Vital signs and Labs for Last 24 Hours: Temp Pulse Resp BP Pulse Ox O2 Del Method O2 Flow Rate 98.3 F 91 H 18 129/63 95 Nasal Cannula 2 02/16/24 11:47 02/16/24 11:47 02/16/24 11:47 02/16/24 11:47 02/16/24 11:47 02/16/24 12:57 02/16/24 12:57 FiO2 40 02/14/24 13:01 Laboratory Results - last 24 hr 02/16/24 06:02: WBC 14.5 H, RBC 3.90 L, Hgb 10.3 L, Hct 32.9 L, MCV 84.3, MCH 26.4 L, MCHC 31.3 L, RDW 17.2, Plt Count 438 H, MPV 8.0, Neut % (Auto) 70.4, Lymph % (Auto) 20.8, [place] % (Auto) 7.1, Eos % (Auto) 1.2, Baso % (Auto) 0.5, Neut # (Auto) 10.2 H, Lymph # (Auto) 3.0, [place] # (Auto) 1.0, Eos # (Auto) 0.2, Baso # (Auto) 0.1, Sodium 138, Potassium 3.7, Chloride 111 H, Carbon Dioxide 26, Anion Gap 4.7 L, BUN 15 D, Creatinine 0.60, Estimated Creat Clear 67, Estimated GFR 98, Est GFR ( Amer) 118, Glucose 74 D, Calcium 8.3 L 02/16/24 08:46: WBC 13.2 H, RBC 3.84 L, Hgb 10.4 L, Hct 32.7 L, MCV 85.1, MCH 26.9 L, MCHC 31.6 L, RDW 17.2, Plt Count 414, MPV 7.8, Neut % (Auto) 73.6, Lymph % (Auto) 18.5, [place] % (Auto) 6.2, Eos % (Auto) 1.1, Baso % (Auto) 0.7, Neut # (Auto) 9.7 H, Lymph # (Auto) 2.4, [place] # (Auto) 0.8, Eos # (Auto) 0.2, Baso # (Auto) 0.1, Sodium 139, Potassium 3.6, Chloride 110 H, Carbon Dioxide 26, Anion Gap 6.6, BUN 13, Creatinine 0.60, Estimated Creat Clear 67, Estimated GFR 98, Est GFR ( Amer) 118, Glucose 98 D, Calcium 8.5, Vancomycin Peak 25.2 I & O for Last 24 hours: Intake & Output 02/13/24 02/14/24 02/15/24 02/16/24 23:59 23:59 23:59 23:59 Intake Total 510 / 510 480 / 940 700 / 700 Output Total 1500 / 1500 Balance 510 / 510 -1020 / -560 700 / 700 Weight 84.935 kg 86.228 kg 86.228 kg Microbiology Reports for the Last 24 Hours: Microbiology 02/14/24 12:51 Blood Blood Culture - Preliminary Constitutional Constitutional: no acute distress Comments: on 2L NC *Routine HEENT Exam Head: Present normocephalic Eye: Present EOMI and PERRL ENT: Present mucous membranes moist *Routine Neck Exam Neck: Present supple; Absent lymphadenopathy *Routine Respiratory Exam Respiratory: Present distant breath sounds and diminished air movement *Routine Cardiovascular Exam Cardiovascular: Present RRR *Routine Abdominal Exam Abdominal: Present soft and normoactive bowel sounds; Absent tenderness *Routine Extremities Exam Extremities: Absent cyanosis, clubbing or edema *Routine Skin Exam Skin: Present warm; Absent rash *Routine Neurological Exam Neurological: Present alert and oriented X3 Assessment and Plan *Assessment and plan (1) Sepsis: Status: Acute Category: Medical Code(s): A41.9 - Sepsis, unspecified organism (2) Acute hypoxic respiratory failure: Status: Acute Category: Medical Code(s): J96.01 - Acute respiratory failure with hypoxia (3) Pneumonia: Status: Acute Category: Medical Code(s): J18.9 - Pneumonia, unspecified organism (4) Acute and chronic respiratory failure: Status: Acute Category: Medical Code(s): J96.20 - Acute and chronic respiratory failure, unspecified whether with hypoxia or hypercapnia (5) COPD (chronic obstructive pulmonary disease): Status: Acute Qualifiers: COPD type: unspecified COPD Qualified Code(s): J44.9 - Chronic obstructive pulmonary disease, unspecified Category: Medical Code(s): J44.9 - Chronic obstructive pulmonary disease, unspecified Plan Patient is a 73-year-old female with past medical history of CHF schizophrenia who presents to the hospital due to shortness of breath, patient also has a history of COPD on 3 L baseline oxygen at home, patient presented to the emergency department for worsening shortness of breath. She has been having cough as well as shortness of breath which is not improving with her home inhaler therapy and patient was sent to the hospital for further evaluation. No reports of fevers chills. Assessment and plan Sepsis present on admission Acute on chronic hypoxic respiratory failure secondary to pneumonia Mass like consolidation right lung concerning for carcinoma Suspect pneumonia COPD exacerbation - improved Plan Start vancomycin, cefepime Continue oxygen supplementation DuoNeb every 4 hours MRSA nasal swab, Check a sputum cultures - pending Consult pulmonary - recs continue scheduled duonebs and IV antibiotics with vancomycin and cefepime History of CHF - compensated plan 02/16/2024 - continue breathing treatments, IV antibiotics with vancomycin and cefepime, pulmonary recommendations to continue IV abx and may need total of 14 days of IV abx, wean oxygen as tolerated, patient lives at [place] facility, dc 1-2 days
[2024-02-16] MEDS: PRENATAL MULTIVITAMIN W/IRON 1 EACH PO (16:20)
--- NOTE | 2024-02-16 16:52 | PC.NURSE ---
PT IS SITTING UP IN THE CHAIR. ALERT AND ORIENTED X3. EATING AND DRINKING FAIR. PT WAS A 2 ASSIST TO GET OOB. PT HAS TOLERATED SITTING UP IN THE CHAIR FOR SEVERAL HOURS THIS SHIFT. O2 SATURATION HAS MAINTAINED 90-95% ON 2 L NC. ROOM AIR SATURATION 87%. LUNG SOUNDS DIMINISHED WITH BILATERAL (BASES) CRACKLES. ABDOMEN SOFT/NON TENDER WITH ACTIVE BOWEL SOUNDS. WILL CONTINUE TO MONITOR.
[2024-02-16] MEDS: ACETYLCYSTEINE 20% 4ML VIAL 1 ML IH (18:53)
[2024-02-16] MEDS: TRAZODONE 50MG TABLET 100 MG PO (21:07)
[2024-02-16] MEDS: QUETIAPINE 100MG TABLET 250 MG PO (21:08)
[2024-02-16] MEDS: MELATONIN 5MG TABLET 5 MG PO (21:08)
[2024-02-16] MEDS: PRAVASTATIN 20MG TAB 20 MG PO (21:09)
[2024-02-17] VITALS (9 sets, daily range): BP systolic 105–120; BP diastolic 60–63; PULSE 60–76; RESP 16–17; TEMP 36.4–36.7; O2SAT 88–97; BMI 30.5
[2024-02-17] MEDS: IPRATROPIUM/ALBUTEROL 3 ML NEB IH ×3 (00:21→11:08)
[2024-02-17] MEDS: HEPARIN SODIUM 5,000 UNIT/ML VIAL 5000 UNIT SQ ×2 (00:27→08:41)
[2024-02-17] MEDS: CEFEPIME HCL 2 GM in 0.9 % SODIUM CHLORIDE 100 ML IV ×2 (00:27→08:45)
[2024-02-17 02:01] LABS: Vancomycin,Trough 44.4 ug/mL (5.0-10.0)
[2024-02-17] MEDS: LEVOTHYROXINE 50MCG (0.05MG) TAB 50 MCG PO (06:28)
[2024-02-17 06:29] LABS: Chloride 113 mmol/L (98-107); Potassium 4.3 mmoL/L (3.5-5.1); Sodium 139 mmol/L (136-145)
[2024-02-17 06:32] LABS: Anion Gap 3.3 mEq/L (5-15); Blood Urea Nitrogen 11 mg/dl (7-17); Carbon Dioxide 27 mmol/L (22.0-30.0); Creatinine Clearance Estimated 69 mL/min (50-200); Estimated Glomerular Filt Rate 98 ml/min (>60); GFR (African American) 118 ML/MIN (>60); Glucose 113 mg/dl (74-100)
[2024-02-17 06:40] LABS: Basophils # 0.1 K/mm3 (0-0.2); Basophils % 0.9 % (0.1-2.0); Eosinophils # 0.3 K/mm3 (0.0-0.4); Eosinophils % 2.7 % (0.1-12.0); Hematocrit 35.6 % (37.0-47.0); Hemoglobin 10.6 g/dL (12.2-16.2); Lymphocytes # 2.9 K/mm3 (0.7-4.5); Lymphocytes % 29.6 % (10-50); Mean Corpuscular HGB Conc 29.9 g/dL (31.8-35.4); Mean Corpuscular Hemoglobin 25.9 pg (27.0-31.2); Mean Corpuscular Volume 86.7 fl (81-99); Monocytes # 0.8 K/mm3 (0.1-1.0); Monocytes % 8.5 % (1.7-9.3); Neutrophils # 5.8 K/mm3 (1.8-7.8); Neutrophils % 58.3 % (37.0-80.0); Platelet Count 441 K/mm3 (142-424); Red Blood Count 4.11 M/mm3 (4.20-5.40); Red Cell Distribution Width 17.1 % (11.5-17.5); White Blood Count 9.9 K/mm3 (4.8-10.8)
[2024-02-17] MEDS: FLUTICASONE/UMECLIDIN/VILANTER 100/62.5/25MCG INHALER 1 PUFF IH (07:37)
[2024-02-17] MEDS: ACETYLCYSTEINE 20% 4ML VIAL 1 ML IH (07:38)
[2024-02-17] MEDS: CITALOPRAM 40MG TABLET 40 MG PO (08:40)
[2024-02-17] MEDS: predniSONE 5MG TAB 5 MG PO (08:40)
[2024-02-17] MEDS: buPROPion HCl SR 150MG TAB 150 MG PO (08:40)
[2024-02-17] MEDS: CHOLECALCIFEROL 1,000 UNITS (25MCG) TABLET 25 MCG PO (08:40)
[2024-02-17] MEDS: GABAPENTIN 400MG CAPSULE 400 MG PO ×2 (08:40→12:43)
[2024-02-17] MEDS: ASPIRIN EC 81MG TABLET 81 MG PO (08:41)
[2024-02-17] MEDS: BUSPIRONE HCL 5 MG TABLET 7.5 MG PO ×2 (08:41→12:43)
[2024-02-17] MEDS: METOCLOPRAMIDE 5MG TABLET 5 MG PO ×2 (08:41→12:43)
[2024-02-17] MEDS: LORATADINE 10MG TABLET 10 MG PO (08:41)
[2024-02-17] MEDS: OXYBUTYNIN 5MG TAB 10 MG PO (08:42)
[2024-02-17] MEDS: ALPRAZolam 0.25MG TABLET 0.25 MG PO ×2 (08:46→12:43)
--- NOTE | 2024-02-17 09:24 | EXP.PHA.PN ---
Subjective *Date: 02/17/24 *Time: :24 Medical Exam Vital signs and Labs for Last 24 Hours: Vital Signs Temp Pulse Pulse Resp BP Pulse Ox O2 Del Method 02/17/24 08:00 Nasal Cannula 02/17/24 08:00 97.5 F L 60 16 105/61 L 91 L Nasal Cannula 02/17/24 07:40 74 02/17/24 07:40 74 02/17/24 07:40 97 Nasal Cannula 02/17/24 07:38 Nasal Cannula 02/17/24 06:57 Nasal Cannula 02/17/24 05:00 Nasal Cannula 02/17/24 04:00 97.6 F 64 16 109/60 L 90 L Nasal Cannula 02/17/24 03:00 Nasal Cannula 02/17/24 01:00 Nasal Cannula 02/17/24 00:23 92 L Nasal Cannula 02/17/24 00:22 70 02/17/24 00:22 70 02/17/24 00:00 98.0 F 71 17 116/61 91 L Nasal Cannula 02/17/24 00:00 88 L Room Air 02/16/24 23:00 Nasal Cannula 02/16/24 21:00 Nasal Cannula 02/16/24 20:00 Nasal Cannula 02/16/24 20:00 98.2 F 77 18 125/59 L 90 L Nasal Cannula 02/16/24 18:54 75 02/16/24 18:54 75 02/16/24 18:54 93 L Nasal Cannula 02/16/24 18:54 75 20 02/16/24 18:41 Nasal Cannula 02/16/24 16:54 Nasal Cannula 02/16/24 16:00 98.2 F 63 20 128/74 91 L Nasal Cannula 02/16/24 16:00 Nasal Cannula 02/16/24 14:41 Nasal Cannula 02/16/24 12:57 Nasal Cannula 02/16/24 11:47 98.3 F 91 H 18 129/63 95 Nasal Cannula 02/16/24 11:07 80 02/16/24 11:07 72 02/16/24 10:32 Nasal Cannula O2 Flow Rate 02/17/24 08:00 2 02/17/24 08:00 2 02/17/24 07:40 02/17/24 07:40 02/17/24 07:40 2 02/17/24 07:38 2 02/17/24 06:57 3 02/17/24 05:00 3 02/17/24 04:00 3 02/17/24 03:00 3 02/17/24 01:00 3 02/17/24 00:23 2 02/17/24 00:22 02/17/24 00:22 02/17/24 00:00 3 02/17/24 00:00 02/16/24 23:00 02/16/24 21:00 3 02/16/24 20:00 3 02/16/24 20:00 3 02/16/24 18:54 02/16/24 18:54 02/16/24 18:54 3 02/16/24 18:54 02/16/24 18:41 2 02/16/24 16:54 2 02/16/24 16:00 2 02/16/24 16:00 2 02/16/24 14:41 2 02/16/24 12:57 2 02/16/24 11:47 2 02/16/24 11:07 02/16/24 11:07 02/16/24 10:32 2 Intake and Output 02/16/24 02/17/24 02/17/24 23:59 07:59 15:59 Intake Total 260 / 960 120 / 120 Output Total 650 / 1050 600 / 600 0 / 600 Balance -390 / -90 -600 / -480 120 / -480 Intake: Intake, Oral Amount 60 / 660 120 / 120 Intake, Total IV Amount 200 / 300 Cefepime HCl 2 gm In 0.9 % 200 / 300 Sodium Chloride 100 ml @ 200 mls/hr IV Q8H [facility] Rx#:[id number] Output: Output, Urine Amount 650 / 1050 600 / 600 0 / 600 Other: Number of Unmeasured Voids 0 0 Weight 88.269 kg Patient Weight 02/17/24 23:59 Weight 88.269 kg Laboratory Results - last 24 hr 02/16/24 08:46: Vancomycin Peak 25.2 02/17/24 00:50: Vancomycin Trough 44.4 H 02/17/24 05:58: WBC 9.9, RBC 4.11 L, Hgb 10.6 L, Hct 35.6 L, MCV 86.7, MCH 25.9 L, MCHC 29.9 L, RDW 17.1, Plt Count 441 H, MPV 8.0, Neut % (Auto) 58.3, Lymph % (Auto) 29.6, [place] % (Auto) 8.5, Eos % (Auto) 2.7, Baso % (Auto) 0.9, Neut # (Auto) 5.8, Lymph # (Auto) 2.9, [place] # (Auto) 0.8, Eos # (Auto) 0.3, Baso # (Auto) 0.1, Sodium 139, Potassium 4.3, Chloride 113 H, Carbon Dioxide 27, Anion Gap 3.3 L, BUN 11, Creatinine 0.60, Estimated Creat Clear 69, Estimated GFR 98, Est GFR ( Amer) 118, Glucose 113 H, Calcium 9.0 I & O for Labs for Last 24 Hours: Intake & Output 02/14/24 02/15/24 02/16/24 02/17/24 23:59 23:59 23:59 23:59 Intake Total 510 / 510 480 / 940 960 / 960 120 / 120 Output Total 1500 / 1500 650 / 1050 600 / 600 Balance 510 / 510 -1020 / -560 310 / -90 -480 / -480 Weight 84.935 kg 86.228 kg 86.228 kg 88.269 kg The patient's infection will respond to the chosen ABx?: Yes Is the patient receiving the right drug, dose, and route?: Yes Could a more targeted ABx be ordered?: No (SPUTUM CX FROM 02/03/24 + FOR MRSA, WBC WNL NOW. )
--- NOTE | 2024-02-17 09:25 | EXP.PULM.PN ---
Subjective *Date: 02/17/24 *Time: 11:02 Interval history: No acute respiratory events overnight. Patient denies any new respiratory complaints. Asking when she can be discharged. Pulmonology Exam Inpatient Vital signs and Labs for Last 24 Hours: Temp Pulse Resp BP Pulse Ox O2 Del Method O2 Flow Rate 97.5 F L 60 16 105/61 L 91 L Nasal Cannula 2 02/17/24 08:00 02/17/24 08:00 02/17/24 08:00 02/17/24 08:00 02/17/24 08:00 02/17/24 08:00 02/17/24 08:00 FiO2 40 02/14/24 13:01 Laboratory Results - last 24 hr 02/16/24 08:46: Vancomycin Peak 25.2 02/17/24 00:50: Vancomycin Trough 44.4 H 02/17/24 05:58: WBC 9.9, RBC 4.11 L, Hgb 10.6 L, Hct 35.6 L, MCV 86.7, MCH 25.9 L, MCHC 29.9 L, RDW 17.1, Plt Count 441 H, MPV 8.0, Neut % (Auto) 58.3, Lymph % (Auto) 29.6, [place] % (Auto) 8.5, Eos % (Auto) 2.7, Baso % (Auto) 0.9, Neut # (Auto) 5.8, Lymph # (Auto) 2.9, [place] # (Auto) 0.8, Eos # (Auto) 0.3, Baso # (Auto) 0.1, Sodium 139, Potassium 4.3, Chloride 113 H, Carbon Dioxide 27, Anion Gap 3.3 L, BUN 11, Creatinine 0.60, Estimated Creat Clear 69, Estimated GFR 98, Est GFR ( Amer) 118, Glucose 113 H, Calcium 9.0 Temp Pulse Resp BP Pulse Ox O2 Del Method O2 Flow Rate 98.4 F 90 20 127/64 91 L Room Air 2 02/16/24 08:00 02/16/24 08:00 02/16/24 08:00 02/16/24 08:00 02/16/24 08:00 02/16/24 08:27 02/16/24 06:37 FiO2 40 02/14/24 13:01 Laboratory Results - last 24 hr 02/16/24 06:02: WBC 14.5 H, RBC 3.90 L, Hgb 10.3 L, Hct 32.9 L, MCV 84.3, MCH 26.4 L, MCHC 31.3 L, RDW 17.2, Plt Count 438 H, MPV 8.0, Neut % (Auto) 70.4, Lymph % (Auto) 20.8, [place] % (Auto) 7.1, Eos % (Auto) 1.2, Baso % (Auto) 0.5, Neut # (Auto) 10.2 H, Lymph # (Auto) 3.0, [place] # (Auto) 1.0, Eos # (Auto) 0.2, Baso # (Auto) 0.1, Sodium 138, Potassium 3.7, Chloride 111 H, Carbon Dioxide 26, Anion Gap 4.7 L, BUN 15 D, Creatinine 0.60, Estimated Creat Clear 67, Estimated GFR 98, Est GFR ( Amer) 118, Glucose 74 D, Calcium 8.3 L I & O for Labs for Last 24 Hours: Intake & Output 02/14/24 02/15/24 02/16/24 02/17/24 23:59 23:59 23:59 23:59 Intake Total 510 / 510 480 / 940 960 / 960 120 / 120 Output Total 1500 / 1500 650 / 1050 600 / 600 Balance 510 / 510 -1020 / -560 310 / -90 -480 / -480 Weight 187 lb 4 oz 190 lb 1.6 oz 190 lb 1.603 oz 194 lb 9.6 oz Intake & Output 02/13/24 02/14/24 02/15/24 02/16/24 23:59 23:59 23:59 23:59 Intake Total 510 / 510 480 / 940 580 / 580 Output Total 1500 / 1500 Balance 510 / 510 -1020 / -560 580 / 580 Weight 187 lb 4 oz 190 lb 1.6 oz 190 lb 1.603 oz Microbiology Reports for the Last 24 Hours: Microbiology 02/14/24 12:51 Blood Blood Culture - Preliminary Constitutional: Present moderate distress Head: Present normocephalic and atraumatic ENT: Present normal exam, normal oropharynx and mucous membranes moist Neck: Present normal inspection and full ROM Respiratory: Present respiratory distress, rhonchi and able to speak in complete sentences; Absent prolonged expiratory phase or wheezes Cardiac: Present S1/S2, Tachycardia and radial pulses present GI: Present soft and distention; Absent tenderness or guarding Rectal (female): Present deferred (female): Present deferred Skin: Present intact; Absent cyanosis or jaundice Neuro: Present alert, awake and oriented x 3 Extremities: Present normal inspection; Absent clubbing or cyanosis Psychiatric: Present normal affect and cooperative Assessment and Plan *Assessment and plan (1) MRSA pneumonia: Status: Acute Category: Medical Code(s): J15.212 - Pneumonia due to Methicillin resistant Staphylococcus aureus (2) Acute and chronic respiratory failure with hypoxia: Status: Resolved Category: Medical Code(s): J96.21 - Acute and chronic respiratory failure with hypoxia (3) History of smoking 30 or more pack years: Status: Acute Category: Social Hx Code(s): Z87.891 - Personal history of nicotine dependence (4) Bronchiectasis: Status: Acute Category: Medical Code(s): J47.9 - Bronchiectasis, uncomplicated Plan Ms. Sommer is a 73-year-old female greater than [id number] smoking history, last moved around 2011, carries a diagnosis of COPD chronic hypoxic respiratory failure at baseline 3 L oxygen supplementation, hypertension dyslipidemia recently admitted to the hospital late January 2024 for pneumonia status post discharged on levofloxacin presented to the ER with worsening respiratory distress. CTA upon admission no evidence of pulmonary embolism. Noted to have right upper lobe spiculated nodule. Also noted bilateral subpleural interstitial changes bronchiectasis and predominant left lower lobe bronchial thickening and endobronchial mucous plugging with atelectasis. The noted findings appear to be worsening from her most recent CT from January 2024. COVID-19 and flu PCR negative. Neutrophilic leukocytosis upon admission. Improving. Venous blood gas from admission did not show any evidence of hypoxic/hypercarbic respiratory failure. Baseline oxygen supplementation Patient on admission was initiated on vancomycin and cefepime pending culture results. She is also receiving prednisone 5 mg daily. Sputum culture from most recent admission grew MRSA sensitive to Bactrim and vancomycin and also strep Pnemumonia. Interval update: No acute respiratory events overnight. Stable ox requirements. Improving leukocytosis. Continue to receive vancomycin and cefepime. Pending culture results. Blood cultures positive from 1 bottle. Awaiting final blood cultures. Plan: -Continue chest percussion therapy 3 times daily along with Mucomyst twice daily -DuoNebs every 6 hours on a scheduled basis -Continue current antibiotics including vancomycin and cefepime pending culture results. Pending cultures will plan to wean antibiotics to Bactrim to complete a total of 14-day course upon discharge -Continue oxygen supplementation to maintain O2 saturation goal of 90% and above # Thank you for involving pulmonary in this patient care. Will continue to follow.
--- NOTE | 2024-02-17 11:36 | EXP.PHA.CONS ---
Pharmacy Consult Date: 02/17/24 Time: 11:36 Referring provider: DR. REYNOLDS Reason for Consult:: VANCOMYCIN LEVELS Allergies Allergy/AdvReac Type Severity Reaction Status Date / Time metronidazole Allergy Unknown I-HIVES Verified 02/11/24 10:51 nitrofurantoin Allergy Unknown Unknown Verified 02/11/24 10:51 [From MACROBID] allergy reaction Home Medications Medication Instructions Recorded Confirmed Type albuterol sulfate 90 mcg/actuation 2 puff inhalation Q4HP PRN 10/15/22 02/14/24 Rx aerosol inhaler (ProAir HFA) Shortness Of Breath Or Wheezing #8.5 grams aspirin 81 mg tablet,delayed 81 mg PO DAILY Heart disease #90 10/15/22 02/14/24 Rx release tabs cholecalciferol (vitamin D3) 25 25 mcg PO DAILY Supplement #90 caps 10/15/22 02/14/24 Rx mcg (1,000 unit) capsule pravastatin 20 mg tablet 20 mg PO HS Cholesterol #90 tabs 10/15/22 02/14/24 Rx acetaminophen 500 mg tablet 500 mg PO TID 12/20/22 02/14/24 History levothyroxine 50 mcg tablet 50 mcg PO DAILY 03/28/23 02/14/24 History melatonin 3 mg tablet 3 mg PO HS 03/28/23 02/14/24 History pantoprazole 40 mg tablet,delayed 40 mg PO DAILY 03/28/23 02/14/24 History release quetiapine 100 mg tablet 250 mg PO HS 03/28/23 02/14/24 History bupropion HCl 150 mg tablet,12 hr 150 mg PO BID #60 ea 05/29/23 02/15/24 Rx sustained-release (Wellbutrin SR) metoclopramide HCl 5 mg tablet 5 mg PO TID #90 tabs 07/10/23 02/14/24 Rx (Reglan) cetirizine 10 mg tablet 10 mg PO DAILY 09/08/23 02/14/24 History oxybutynin chloride 5 mg tablet 10 mg PO DAILY 10/14/23 02/14/24 History trazodone 100 mg tablet 100 mg PO HS 10/14/23 02/14/24 History alprazolam 0.25 mg tablet 0.25 mg PO TID Anxiety #90 tabs 11/24/23 02/14/24 Rx gabapentin 400 mg capsule 400 mg PO TID Pain #90 caps 11/24/23 02/14/24 Rx dextromethorphan-guaifenesin 10 10 ml PO Q6H PRN Cough 11/28/23 02/14/24 History mg-100 mg/5 mL oral liquid guaifenesin 400 mg tablet 400 mg PO DAILY #120 tabs 11/28/23 02/14/24 Rx lactulose 10 gram/15 mL oral 30 ml PO DAILYP PRN Constipation 11/28/23 02/15/24 History solution multivitamin with minerals 1 cap PO DAILY 11/28/23 02/14/24 History sennosides 8.6 mg tablet (senna) 8.6 mg PO DAILY PRN Constipation 11/28/23 02/14/24 History buspirone 7.5 mg tablet 7.5 mg PO TID #90 tabs 01/14/24 02/14/24 Rx escitalopram oxalate 20 mg tablet 20 mg PO DAILY 02/03/24 02/14/24 History (Lexapro) polyethylene glycol 3350 17 gram 17 g PO DAILY PRN Constipation 02/03/24 02/14/24 History oral powder packet prednisone 5 mg tablet 5 mg PO DAILY 02/04/24 02/14/24 History fluticasone fur. 100 mcg-umeclid 1 inh inhalation DAILY 30 days #1 02/06/24 02/14/24 Rx 62.5 mcg-vilant 25 mcg ea inhalat.powder (Trelegy Ellipta) ipratropium 0.5 mg-albuterol 3 mg 3 ml inhalation Q6H 02/16/24 02/14/24 History (2.5 mg base)/3 mL nebulization soln New Prescriptions to Start Prescriptions: Height: 1.7 m Weight: 88.269 kg Laboratory Results:: Laboratory Results - last 24 hr 02/17/24 00:50: Vancomycin Trough 44.4 H 02/17/24 05:58: WBC 9.9, RBC 4.11 L, Hgb 10.6 L, Hct 35.6 L, MCV 86.7, MCH 25.9 L, MCHC 29.9 L, RDW 17.1, Plt Count 441 H, MPV 8.0, Neut % (Auto) 58.3, Lymph % (Auto) 29.6, [place] % (Auto) 8.5, Eos % (Auto) 2.7, Baso % (Auto) 0.9, Neut # (Auto) 5.8, Lymph # (Auto) 2.9, [place] # (Auto) 0.8, Eos # (Auto) 0.3, Baso # (Auto) 0.1, Sodium 139, Potassium 4.3, Chloride 113 H, Carbon Dioxide 27, Anion Gap 3.3 L, BUN 11, Creatinine 0.60, Estimated Creat Clear 69, Estimated GFR 98, Est GFR ( Amer) 118, Glucose 113 H, Calcium 9.0 Medical History: Medical History (Updated 02/17/24 @ 11:02 by Jannie Pena MD) Bronchiectasis History of smoking 30 or more pack years MRSA pneumonia Asthma Congenital diverticulum of esophagus Anxiety Essential hypertension Arthritis Diverticulosis History of falling History of dysuria History of cystitis Migraine Rheumatoid arthritis Intervertebral disc disorder Schizoaffective disorder Depression Dysphagia GERD (gastroesophageal reflux disease) Nicotine dependence Hx MRSA infection Atherosclerotic cardiovascular disease Hypothyroid Emphysema/COPD Hypertension Hyperlipidemia Pseudomonas urinary tract infection Gram-negative infection Lumbar radiculopathy Toe pain, left Breast nodule Lung nodule Closed head injury Fall Community acquired pneumonia Respiratory failure with hypoxia and hypercapnia Sepsis with acute organ dysfunction Community acquired bacterial pneumonia Sepsis COPD exacerbation Aspiration pneumonia Esophageal diverticulum E. coli UTI (urinary tract infection) Hypokalemia SIRS (systemic inflammatory response syndrome) Cholelithiasis Colon, diverticulosis Emphysematous cystitis Abdominal pain UTI (urinary tract infection) Pneumonia Tobacco dependence Decreased mobility Urinary incontinence Low back pain radiating to both legs Obesity (BMI 30-39.9) COPD with acute exacerbation Staphylococcus aureus pneumonia Lung nodule seen on imaging study Acquired hypothyroidism Chronic low back pain Generalized anxiety disorder Cough Acute bronchitis RLL pneumonia Acute exacerbation of chronic obstructive airways disease Assessment and Plan Assessment and plan all Dx Assessment and Plan for all problems:: WILL INCREASE DOSING INTERVAL TO Q24H AT THIS TIME AND RECHECK TROUGH LEVEL AT 2100 TONIGHT.
--- NOTE | 2024-02-17 11:54 | P.DS_ITS ---
General Admission date:: 02/14/24 Discharge date: 02/17/24 HPI HPI HPI: Patient is a 73-year-old female with past medical history of CHF schizophrenia who presents to the hospital due to shortness of breath, patient also has a history of COPD on 3 L baseline oxygen at home, patient presented to the emergency department for worsening shortness of breath. She has been having cough as well as shortness of breath which is not improving with her home inhaler therapy and patient was sent to the hospital for further evaluation. No reports of fevers chills. Hospital Course Hospital Course Hospital Course: 73-year-old female who resides at a detention with past medical history of CHF, schizophrenia, chronic hypoxic respiratory failure. She presented with acute on chronic hypoxemic respiratory failure secondary to pneumonia. She has been having cough as well as shortness of breath which is not improving with her home inhaler therapy and patient was sent to the hospital for further evaluation. No reports of fevers chills. Of note was recently admitted for similar symptoms. Has a chronic cough at baseline. Cultures from previous pneumonia positive for strep pneumo and MRSA. Initiated on broad-spectrum antibiotics this admission with vancomycin and cefepime. Pulmonology consulted and assisted with care. Stable to transfer back to her detention to complete antibiotics. Problems addressed during hospitalization as follows. Acute on chronic hypoxemic respiratory failure Pneumonia Masslike consolidation CT obtained on admission with no evidence of PE. Was noted to have right upper lobe spiculated nodule that has been present for some time. Also noted to have bilateral subpleural interstitial changes and bronchiectasis. Predominant left lower lobe bronchial thickening and endobronchial mucous plugging with atelectasis. Findings worse from CT in January. COVID and flu were obtained, these were negative. Noted to have neutrophilic leukocytosis that improved during admission. White cell count of 9.9 on day of discharge. Has been requiring baseline oxygen of 3 L during admission. Pulmonology assisted with care, based on previous cultures recommended vancomycin and cefepime. Previous cultures are sensitive to Bactrim for both pathogens. Single blood culture positive, suspect contaminant at this time but will continue to follow after discharge. Will transition to oral Bactrim double strength twice daily to complete 14 days total of antibiotics. Also recommend continuing DuoNebs every 6 hours scheduled. Strongly recommend percussion 3 times a day. This can be performed by nursing. Will need to continue this when she returns back to her detention to decrease risk for recurrent pneumonia and assist with clearance of mucous plugs. Will continue Mucomyst twice daily as well to help break up mucus and promote clearing of airways. Stable to discharge back to nursing facility to complete antibiotics. Continue buspirone 7.5 mg 3 times a day for mood Continue Lexapro 20 mg daily for depression Continue MiraLAX daily as needed for constipation Continue alprazolam 0.25 mg 3 times a day for anxiety Continue aspirin 81 mg daily for CAD Continue trazodone 100 mg nightly and Seroquel 250 mg nightly for mood and sleep Continue pantoprazole 40 mg daily for GERD Continue oxybutynin 10 mg daily for overactive bladder Continue levothyroxine 50 mcg daily for hypothyroid Continue gabapentin 4 mg 3 times a day for pain Continue Wellbutrin 150 mg twice daily for mood Total time spent on discharge 32 minutes in counseling, documentation, chart review, and direct care with patient. Exam Data for Last 24 hours Vital signs and Labs for Last 24 Hours: Temp Pulse Resp BP Pulse Ox O2 Del Method O2 Flow Rate 97.7 F 72 16 120/61 89 L Nasal Cannula 2 02/17/24 11:40 02/17/24 11:40 02/17/24 11:40 02/17/24 11:40 02/17/24 11:40 02/17/24 11:40 02/17/24 11:40 FiO2 40 02/14/24 13:01 Laboratory Results - last 24 hr 02/17/24 00:50: Vancomycin Trough 44.4 H 02/17/24 05:58: WBC 9.9, RBC 4.11 L, Hgb 10.6 L, Hct 35.6 L, MCV 86.7, MCH 25.9 L, MCHC 29.9 L, RDW 17.1, Plt Count 441 H, MPV 8.0, Neut % (Auto) 58.3, Lymph % (Auto) 29.6, [place] % (Auto) 8.5, Eos % (Auto) 2.7, Baso % (Auto) 0.9, Neut # (Auto) 5.8, Lymph # (Auto) 2.9, [place] # (Auto) 0.8, Eos # (Auto) 0.3, Baso # (Auto) 0.1, Sodium 139, Potassium 4.3, Chloride 113 H, Carbon Dioxide 27, Anion Gap 3.3 L, BUN 11, Creatinine 0.60, Estimated Creat Clear 69, Estimated GFR 98, Est GFR ( Amer) 118, Glucose 113 H, Calcium 9.0 I & O for Last 24 hours: Intake & Output 02/14/24 02/15/24 02/16/24 02/17/24 23:59 23:59 23:59 23:59 Intake Total 510 / 510 480 / 940 960 / 960 120 / 120 Output Total 1500 / 1500 650 / 1050 1300 / 1300 Balance 510 / 510 -1020 / -560 310 / -90 -1180 / -1180 Weight 84.935 kg 86.228 kg 86.228 kg 88.269 kg Microbiology Reports for the Last 24 Hours: Microbiology 02/14/24 12:51 Blood Blood Culture - Preliminary Constitutional Constitutional: no acute distress, average body habitus, chronically ill appearing and cooperative *Routine HEENT Exam Head: Present normocephalic Eye: Present PERRL ENT: Present mucous membranes moist *Routine Neck Exam Neck: Present full ROM Routine Chest/Breast/Axilla Exam Chest wall: Absent tenderness Breast: Absent tenderness Axillae: Absent swelling or erythema *Routine Respiratory Exam Respiratory: Present rhonchi, crackles (Bilateral bases), able to speak in complete sentences and symmetric chest movement; Absent accessory muscle use, decreased breath sounds, stridor or wheezes *Routine Cardiovascular Exam Cardiovascular: Present RRR *Routine Abdominal Exam Abdominal: Present soft; Absent tenderness *Routine Rectal Exam Patient deferred: visual exam *Routine Exam Patient deferred: external exam *Routine Extremities Exam Extremities: Absent clubbing or edema Comments: Legs equal length, surgical scar from previous hip fracture on right hip Routine Back/Spine/Pelvis Exam Back/Spine: Present full ROM Pelvis: Absent buttock tenderness, pain with lateral compression of the pelvis, sacral swelling or sacral tenderness *Routine Skin Exam Skin: Present intact, warm and normal turgor *Routine Neurological Exam Neurological: Present alert, moving all extremities, normal speech and tremors; Absent altered mental status Comments: Baseline mentation Routine Psychiatric Exam Psychiatric: Present normal affect Results Data Completed and Pending Labs on day of discharge: Labs from last 24 hours 02/17/24 02/17/24 05:58 00:50 WBC 9.9 RBC 4.11 L Hgb 10.6 L Hct 35.6 L MCV 86.7 MCH 25.9 L MCHC 29.9 L RDW 17.1 Plt Count 441 H MPV 8.0 Neut % (Auto) 58.3 Lymph % (Auto) 29.6 [place] % (Auto) 8.5 Eos % (Auto) 2.7 Baso % (Auto) 0.9 Neut # (Auto) 5.8 Lymph # (Auto) 2.9 [place] # (Auto) 0.8 Eos # (Auto) 0.3 Baso # (Auto) 0.1 Sodium 139 Potassium 4.3 Chloride 113 H Carbon Dioxide 27 Anion Gap 3.3 L BUN 11 Creatinine 0.60 Estimated Creat Clear 69 Estimated GFR 98 Est GFR ( Amer) 118 Glucose 113 H Calcium 9.0 Vancomycin Trough 44.4 H Preliminary micro results at discharge 02/14/24 12:51 Blood Culture - Preliminary Blood 02/14/24 12:51 Blood Culture - Preliminary Blood DS: Diagnosis Discharge Diagnosis (1) MRSA pneumonia: Status: Acute Code(s): J15.212 - Pneumonia due to Methicillin resistant Staphylococcus aureus (2) Acute and chronic respiratory failure with hypoxia: Status: Resolved Code(s): J96.21 - Acute and chronic respiratory failure with hypoxia (3) History of smoking 30 or more pack years: Status: Acute Code(s): Z87.891 - Personal history of nicotine dependence (4) Bronchiectasis: Status: Acute Code(s): J47.9 - Bronchiectasis, uncomplicated Meds Home Medications and Allergies Home Medications Medication Instructions Recorded Confirmed Type albuterol sulfate 90 mcg/actuation 2 puff inhalation Q4HP PRN 10/15/22 02/14/24 Rx aerosol inhaler (ProAir HFA) Shortness Of Breath Or Wheezing #8.5 grams aspirin 81 mg tablet,delayed 81 mg PO DAILY Heart disease #90 10/15/22 02/14/24 Rx release tabs cholecalciferol (vitamin D3) 25 25 mcg PO DAILY Supplement #90 caps 10/15/22 02/14/24 Rx mcg (1,000 unit) capsule pravastatin 20 mg tablet 20 mg PO HS Cholesterol #90 tabs 10/15/22 02/14/24 Rx acetaminophen 500 mg tablet 500 mg PO TID 12/20/22 02/14/24 History levothyroxine 50 mcg tablet 50 mcg PO DAILY 03/28/23 02/14/24 History melatonin 3 mg tablet 3 mg PO HS 03/28/23 02/14/24 History pantoprazole 40 mg tablet,delayed 40 mg PO DAILY 03/28/23 02/14/24 History release quetiapine 100 mg tablet 250 mg PO HS 03/28/23 02/14/24 History bupropion HCl 150 mg tablet,12 hr 150 mg PO BID #60 ea 05/29/23 02/15/24 Rx sustained-release (Wellbutrin SR) metoclopramide HCl 5 mg tablet 5 mg PO TID #90 tabs 07/10/23 02/14/24 Rx (Reglan) cetirizine 10 mg tablet 10 mg PO DAILY 09/08/23 02/14/24 History oxybutynin chloride 5 mg tablet 10 mg PO DAILY 10/14/23 02/14/24 History trazodone 100 mg tablet 100 mg PO HS 10/14/23 02/14/24 History alprazolam 0.25 mg tablet 0.25 mg PO TID Anxiety #90 tabs 11/24/23 02/14/24 Rx gabapentin 400 mg capsule 400 mg PO TID Pain #90 caps 11/24/23 02/14/24 Rx dextromethorphan-guaifenesin 10 10 ml PO Q6H PRN Cough 11/28/23 02/14/24 History mg-100 mg/5 mL oral liquid guaifenesin 400 mg tablet 400 mg PO DAILY #120 tabs 11/28/23 02/14/24 Rx lactulose 10 gram/15 mL oral 30 ml PO DAILYP PRN Constipation 11/28/23 02/15/24 History solution multivitamin with minerals 1 cap PO DAILY 11/28/23 02/14/24 History sennosides 8.6 mg tablet (senna) 8.6 mg PO DAILY PRN Constipation 11/28/23 History buspirone 7.5 mg tablet 7.5 mg PO TID #90 tabs 01/14/24 02/14/24 Rx escitalopram oxalate 20 mg tablet 20 mg PO DAILY 02/03/24 02/14/24 History (Lexapro) polyethylene glycol 3350 17 gram 17 g PO DAILY PRN Constipation 02/03/24 02/14/24 History oral powder packet prednisone 5 mg tablet 5 mg PO DAILY 02/04/24 02/14/24 History fluticasone fur. 100 mcg-umeclid 1 inh inhalation DAILY 30 days #1 02/06/24 02/14/24 Rx 62.5 mcg-vilant 25 mcg ea inhalat.powder (Trelegy Ellipta) ipratropium 0.5 mg-albuterol 3 mg 3 ml inhalation Q6H 02/16/24 02/14/24 History (2.5 mg base)/3 mL nebulization soln acetylcysteine 200 mg/mL (20 %) 1 ml inhalation BID 30 days #60 mL 02/17/24 Rx solution sulfamethoxazole 800 1 tab PO BID 10 days #20 tabs 02/17/24 Rx mg-trimethoprim 160 mg tablet (Bactrim DS) New Prescriptions to Start Prescriptions: acetylcysteine Frankie Foley sulfamethoxazole-trimethoprim [Bactrim DS] Frankie Foley Allergies Allergy/AdvReac Type Severity Reaction Status Date / Time metronidazole Allergy Unknown I-HIVES Verified 02/11/24 10:51 nitrofurantoin Allergy Unknown Unknown Verified 02/11/24 10:51 [From MACROBID] allergy reaction Discharge Plan Disposition Patient Disposition: Xfer Intermediate Care Fac Condition: Fair Discharge Order Discharge Orders: Discharge Order (Routine); Ordered 02/17/24 Ordered By: Frankie Foley Follow up Plan Follow up with: Jannie Pena MD [Physician] - Enter time for follow up Prescriptions/Medication Reconciliation: New acetylcysteine 200 mg/mL (20 %) Solution 1 ml inhalation BID 30 Days Qty: 60 0RF sulfamethoxazole-trimethoprim [Bactrim DS] 800-160 mg tablet 1 tab PO BID 10 Days Qty: 20 0RF Continued bupropion HCl [Wellbutrin SR] 150 mg tablet sustained-release 12 hr 150 mg PO BID Qty: 60 2RF metoclopramide HCl [Reglan] 5 mg tablet 5 mg PO TID Qty: 90 3RF Rx Instructions: administer 30 minutes before meals alprazolam 0.25 mg tablet 0.25 mg PO TID Qty: 90 3RF gabapentin 400 mg capsule 400 mg PO TID Qty: 90 3RF guaifenesin 400 mg tablet 400 mg PO DAILY Qty: 120 0RF lactulose 10 gram/15 mL solution 30 ml PO DAILYP PRN (Reason: Constipation) multivitamin with minerals Capsule 1 cap PO DAILY dextromethorphan-guaifenesin 10-100 mg/5 mL liquid 10 ml PO Q6H PRN (Reason: Cough) sennosides [senna] 8.6 mg tablet 8.6 mg PO DAILY PRN (Reason: Constipation) buspirone 7.5 mg tablet 7.5 mg PO TID Qty: 90 3RF aspirin 81 mg tablet,delayed release (DR/EC) 81 mg PO DAILY Qty: 90 0RF pravastatin 20 mg tablet 20 mg PO HS Qty: 90 0RF albuterol sulfate [ProAir HFA] 90 mcg/actuation HFA aerosol inhaler 2 puff inhalation Q4HP PRN (Reason: Shortness Of Breath Or Wheezing) Qty: 8.5 0RF cholecalciferol (vitamin D3) 25 mcg (1,000 unit) capsule 25 mcg PO DAILY Qty: 90 0RF melatonin 3 mg Tablet 3 mg PO HS quetiapine 100 mg tablet 250 mg PO HS levothyroxine 50 mcg tablet 50 mcg PO DAILY pantoprazole 40 MG tablet,delayed release (DR/EC) 40 mg PO DAILY cetirizine 10 mg Tablet 10 mg PO DAILY acetaminophen 500 mg Tablet 500 mg PO TID oxybutynin chloride 5 mg tablet 10 mg PO DAILY trazodone 100 mg Tablet 100 mg PO HS escitalopram oxalate [Lexapro] 20 mg Tablet 20 mg PO DAILY polyethylene glycol 3350 17 gram Powder In Packet 17 g PO DAILY PRN (Reason: Constipation) prednisone 5 mg Tablet 5 mg PO DAILY Trelegy Ellipta 100-62.5-25 mcg Blister With Device 1 inh inhalation DAILY 30 Days Qty: 1 0RF ipratropium-albuterol 0.5 mg-3 mg(2.5 mg base)/3 mL solution for nebulization 3 ml INHALATION Q6H Problem Reconciliation Problems Reviewed?: Yes Patient Discharge Instructions ACTIVITY: Continue current activity DIET: continue same diet Patient Instructions: DI for Pneumonia -- Adult, DI for Sepsis -- Adult, DI for Hypoxia Providers Primary Care Provider: Juanpablo Reardon Provider: Hubert Shah Attending Provider: Hubert Shah
--- NOTE | 2024-02-17 14:13 | PC.NURSE ---
RESPIRATORY CARE NOTE: PT GIVEN FLUTTER VALVE AND INSTRUCTED ON HOW TO USE IT.
--- NOTE | 2024-02-18 03:12 | PC.NURSE ---
received negative prelim blood culture results and will assign to dr rodriguez as patient is inpatient.
== END 2024-02-17 16:57 | DRG 177 ==
LOC: ER 15:10 → 2ND 16:15
PROVIDERS: Emergency Medicine; Admitting Provider Internal Medicine; Emergency Provider Emergency Medicine; PCP Internal Medicine; Visit Provider Internal Medicine
DX: J15.212 Pneumonia due to Methicillin resistant Staphylococcus aureus (principal); J96.21 Acute and chronic respiratory failure with hypoxia; J47.0 Bronchiectasis with acute lower respiratory infection; J44.0 Chronic obstructive pulmonary disease with (acute) lower respiratory infection; J47.1 Bronchiectasis with (acute) exacerbation; J44.9 Chronic obstructive pulmonary disease, unspecified; F20.9 Schizophrenia, unspecified; F32.A Depression, unspecified; F41.9 Anxiety disorder, unspecified; E03.9 Hypothyroidism, unspecified; Z87.891 Personal history of nicotine dependence
CPT/HCPCS: 36415; 70450; 71275; 80048; 80053; 80202; 81001; 82803; 83880; 84484; 85007; 85025; 87040; 87070; 87205; 87636; 93005; 94640; 94667; 94761; 99291; J0456; J0696; J2405; J3475; Q9967

== ENCOUNTER 2024-02-19 10:53 | Outpatient (CLI) | payer MEDICARE, MEDICAID, SELFPAY ==
--- NOTE | 2024-02-19 10:57 | XR_ITS ---
FINAL REPORT CLINICAL HISTORY: right hip fx COMPARISON: 11/20/2023 FINDINGS: An AP view of the pelvis and a frog leg views of the right hip were obtained. There is no prior exam for comparison. There is no acute fracture or dislocation. The patient has undergone prior right hip arthroplasty, which appears stable since the prior exam of November 20. Remaining osseous pelvis is within normal limits. Soft tissues are within normal limits. IMPRESSION: No acute osseous abnormality of the right hip. Prior right hip arthroplasty, stable since prior exam of November 20. Reviewed, Interpreted and Dictated by Luis Billingsley III, MD Transcribed by Jina Coon Authenticated and [facility]
== END 2024-02-19 23:59 | disposition home or self-care (01) ==
LOC: RAD 10:55
PROVIDERS: PCP Family Medicine; Visit Provider Orthopaedic Surgery
DX: M25.551 Pain in right hip (principal); S72.001A Fracture of unspecified part of neck of right femur, initial encounter for closed fracture
CPT/HCPCS: 73502

== ENCOUNTER 2024-02-22 23:25 | Emergency (ER) | payer MEDICARE, MEDICAID, SELFPAY ==
[2024-02-22 23:30] VITALS: BP 139/50; PULSE 74; RESP 22; O2SAT 93
[2024-02-22 23:33] VITALS: BP 128/61; PULSE 81; RESP 36; TEMP 36.7; O2SAT 90; BMI 35.5
--- NOTE | 2024-02-22 23:40 | XR_ITS ---
PROCEDURE INFORMATION: Exam: XR Chest Exam date and time: 02/22/2024 11:42 PM Age: 73 years old Clinical indication: Shortness of breath; Additional info: Shortness of air TECHNIQUE: Imaging protocol: Radiologic exam of the chest. Views: 1 view. Total images: 1 COMPARISON: CT ANGIO CHEST PE PROTOCOL 02/14/2024 1:28 PM FINDINGS: Tubes, catheters and devices: EKG leads are present. Lungs: Nodular density right upper lobe corresponding with spiculated nodule described by recent CT. Improved bibasilar infiltrates. No pulmonary vascular congestion or interstitial edema. Emphysema/COPD. Pleural spaces: Unremarkable. No pleural effusion. No pneumothorax. Heart/Mediastinum: Unremarkable. No cardiomegaly. No mediastinal widening or hilar enlargement. Vasculature: Atherosclerotic aortic arch. Bones/joints: Osteopenia. Other findings: Slight rotation to the right. IMPRESSION: 1. Improved bibasilar infiltrates with minor residual changes. 2. Emphysema/COPD. 3. Spiculated right upper lobe nodule corresponding with CT February 14, 2024. Neoplasm is the diagnosis for exclusion.
--- NOTE | 2024-02-22 23:42 | ECG_ITS ---
APPROVED REPORT Exam: Resting ECG HR:73 bpm ECG Measurements Heart Rate 73 AXES CO 139 P 67 QRSd 85 QRS 75 QT 402 T 65 QTc 428 Conclusion SINUS RHYTHM NORMAL ECG UNCONFIRMED REPORT Electronically signed by : BRIANDA LARSEN, 02/25/2024 06:50:07
--- NOTE | 2024-02-22 23:48 | PC.NURSE ---
RAD at bedside
[2024-02-22 23:49] LABS: Lactate Venous 1.5 mmol/L (0.4-2.0); VBG Base Excess -0.6 mmol/L (-2.4-2.3); VBG HCO3 24.9 mmol/L (23-30); VBG Oxygen Saturation 99.4 % (50-70); VBG PCO2 45.9 mmol/L (35-51); VBG PH 7.35 mmol/L (7.31-7.41); VBG PO2 181.8 mmol/L (28-40); VBG Total CO2 26.4 mmol/L (23-27)
[2024-02-22 23:52] LABS: Alanine Aminotransferase 16 U/L (12-78); Albumin Level 3.7 g/dl (3.5-5.0); Albumin/Globulin Ratio 1.3 (1.1-1.8); Alkaline Phosphatase 55 U/L (38-126); Anion Gap 9.1 mEq/L (5-15); Aspartate Amino Transferase 27 U/L (14-36); Blood Urea Nitrogen 17 mg/dl (7-17); Calcium 9.2 mg/dl (8.4-10.2); Carbon Dioxide 29 mmol/L (22.0-30.0); Chloride 105 mmol/L (98-107); Creatinine Clearance Estimated 78 mL/min (50-200); Estimated Glomerular Filt Rate 70 ml/min (>60); GFR (African American) 85 ML/MIN (>60); Globulin 2.8 g/dL (1.3-3.2); Glucose 119 mg/dl (74-100); Potassium 4.1 mmoL/L (3.5-5.1); Sodium 139 mmol/L (136-145); Total Protein,Serum 6.5 g/dl (6.3-8.2)
[2024-02-22 23:53] LABS: Basophils # 0.1 K/mm3 (0-0.2); Basophils % 0.6 % (0.1-2.0); Eosinophils # 0.2 K/mm3 (0.0-0.4); Eosinophils % 1.8 % (0.1-12.0); Hematocrit 35.4 % (37.0-47.0); Hemoglobin 11.1 g/dL (12.2-16.2); Lymphocytes # 3.6 K/mm3 (0.7-4.5); Lymphocytes % 28.7 % (10-50); Mean Corpuscular HGB Conc 31.4 g/dL (31.8-35.4); Mean Corpuscular Hemoglobin 26.7 pg (27.0-31.2); Mean Corpuscular Volume 84.9 fl (81-99); Mean Platelet Volume 7.4 fl (7.4-10.4); Monocytes # 0.8 K/mm3 (0.1-1.0); Monocytes % 6.2 % (1.7-9.3); Neutrophils # 7.8 K/mm3 (1.8-7.8); Neutrophils % 62.5 % (37.0-80.0); Platelet Count 352 K/mm3 (142-424); Red Blood Count 4.17 M/mm3 (4.20-5.40); Red Cell Distribution Width 16.7 % (11.5-17.5); White Blood Count 12.4 K/mm3 (4.8-10.8)
[2024-02-22 23:57] LABS: Bilirubin,Total 0.1 mg/dl (0.2-1.3)
[2024-02-23] VITALS (9 sets, daily range): BP systolic 111–126; BP diastolic 36–68; PULSE 60–72; RESP 15–21; TEMP 36.6; O2SAT 90–95
[2024-02-23] MEDS: IPRATROPIUM/ALBUTEROL 3 ML NEB IH (00:04)
[2024-02-23 00:05] LABS: NT Pro Brain Natriuretic Pep. 44.4 pg/mL (0-125)
--- NOTE | 2024-02-23 00:08 | [facility].EDGENADL ---
Discharge Plan Disposition Patient Disposition: Home, Self-Care Prescriptions Prescriptions: New prednisone 50 mg tablet 50 mg PO DAILY 5 Days Qty: 5 0RF No Action bupropion HCl [Wellbutrin SR] 150 mg tablet sustained-release 12 hr 150 mg PO BID Qty: 60 2RF metoclopramide HCl [Reglan] 5 mg tablet 5 mg PO TID Qty: 90 3RF Rx Instructions: administer 30 minutes before meals alprazolam 0.25 mg tablet 0.25 mg PO TID Qty: 90 3RF gabapentin 400 mg capsule 400 mg PO TID Qty: 90 3RF guaifenesin 400 mg tablet 400 mg PO DAILY Qty: 120 0RF lactulose 10 gram/15 mL solution 30 ml PO DAILYP PRN (Reason: Constipation) multivitamin with minerals Capsule 1 cap PO DAILY dextromethorphan-guaifenesin 10-100 mg/5 mL liquid 10 ml PO Q6H PRN (Reason: Cough) sennosides [senna] 8.6 mg tablet 8.6 mg PO DAILY PRN (Reason: Constipation) buspirone 7.5 mg tablet 7.5 mg PO TID Qty: 90 3RF aspirin 81 mg tablet,delayed release (DR/EC) 81 mg PO DAILY Qty: 90 0RF pravastatin 20 mg tablet 20 mg PO HS Qty: 90 0RF albuterol sulfate [ProAir HFA] 90 mcg/actuation HFA aerosol inhaler 2 puff inhalation Q4HP PRN (Reason: Shortness Of Breath Or Wheezing) Qty: 8.5 0RF cholecalciferol (vitamin D3) 25 mcg (1,000 unit) capsule 25 mcg PO DAILY Qty: 90 0RF melatonin 3 mg Tablet 3 mg PO HS quetiapine 100 mg tablet 250 mg PO HS levothyroxine 50 mcg tablet 50 mcg PO DAILY pantoprazole 40 MG tablet,delayed release (DR/EC) 40 mg PO DAILY cetirizine 10 mg Tablet 10 mg PO DAILY acetaminophen 500 mg Tablet 500 mg PO TID oxybutynin chloride 5 mg tablet 10 mg PO DAILY trazodone 100 mg Tablet 100 mg PO HS escitalopram oxalate [Lexapro] 20 mg Tablet 20 mg PO DAILY polyethylene glycol 3350 17 gram Powder In Packet 17 g PO DAILY PRN (Reason: Constipation) prednisone 5 mg Tablet 5 mg PO DAILY Trelegy Ellipta 100-62.5-25 mcg Blister With Device 1 inh inhalation DAILY 30 Days Qty: 1 0RF ipratropium-albuterol 0.5 mg-3 mg(2.5 mg base)/3 mL solution for nebulization 3 ml INHALATION Q6H acetylcysteine 200 mg/mL (20 %) Solution 1 ml inhalation BID 30 Days Qty: 60 0RF sulfamethoxazole-trimethoprim [Bactrim DS] 800-160 mg tablet 1 tab PO BID 10 Days Qty: 20 0RF Referrals Follow up/Referrals: Provider,Referral, MD [Primary Care Provider] - See instructions Activity Restrictions/Add. Instructions Additional Instructions/Restrictions: Your presentation is consistent with acute COPD exacerbation. Please take additional steroids as prescribed. Please do not turn down your oxygen at your nursing facility. Clinical Impressions Clinical Impression: Acute exacerbation of chronic obstructive pulmonary disease, Lung nodule Discharge ED Provider: Jean Claude Morales Adult HPI General Chief complaint: Shortness of Breath/Dyspnea Stated complaint: Short of Breath Time Seen by Provider: 02/22/24 23:59 Mode of Arrival: EMS Source of Information: Patient Limitations: No Limitations Description of Symptoms (Recalled from ER Triage Doc. by RN): 73 yo female returns to ED following a discharge from inpatient following a stay for pneumonia. NH stated that they check her oxygen saturation when she had increased dyspnea earlier this pm. Patient states she doesn't feel any different than when she was here before. A&ox 3. Brought in by EMS on 10lpm NRB with a saturation maintaining around 89-90%. RR increased at 36 bpm. Productive cough noted. Afebrile at time of triage. Skin w/d, pale. History of Present Illness HPI narrative: 73-year-old female with history of COPD, recent admission for bacterial pneumonia presents for worsening shortness of breath at her nursing facility. She is supposed to be on 4 L nasal cannula at the nursing facility but she reports that she often turns it down to 2 or 3. She reports worsening shortness of breath that developed gradually over the day. She was noted to be hypoxic at the nursing facility and EMS was called. In route with EMS she was given 2 DuoNebs. On arrival she reports some symptomatic improvement. She denies any fever, reports that she is still on antibiotics but she is not sure what kind. She denies any worsening cough or sputum production. Related Data Home Medications Medication Instructions Recorded Confirmed acetaminophen 500 mg tablet 500 mg PO TID 12/20/22 02/19/24 levothyroxine 50 mcg tablet 50 mcg PO DAILY 03/28/23 02/19/24 melatonin 3 mg tablet 3 mg PO HS 03/28/23 02/19/24 pantoprazole 40 mg tablet,delayed 40 mg PO DAILY 03/28/23 02/19/24 release quetiapine 100 mg tablet 250 mg PO HS 03/28/23 02/19/24 cetirizine 10 mg tablet 10 mg PO DAILY 09/08/23 02/19/24 oxybutynin chloride 5 mg tablet 10 mg PO DAILY 10/14/23 02/19/24 trazodone 100 mg tablet 100 mg PO HS 10/14/23 02/19/24 dextromethorphan-guaifenesin 10 10 ml PO Q6H PRN Cough 11/28/23 02/19/24 mg-100 mg/5 mL oral liquid lactulose 10 gram/15 mL oral 30 ml PO DAILYP PRN Constipation 11/28/23 02/19/24 solution multivitamin with minerals 1 cap PO DAILY 11/28/23 02/19/24 sennosides 8.6 mg tablet (senna) 8.6 mg PO DAILY PRN Constipation 11/28/23 02/19/24 escitalopram oxalate 20 mg tablet 20 mg PO DAILY 02/03/24 02/19/24 (Lexapro) polyethylene glycol 3350 17 gram 17 g PO DAILY PRN Constipation 02/03/24 02/19/24 oral powder packet prednisone 5 mg tablet 5 mg PO DAILY 02/04/24 02/19/24 ipratropium 0.5 mg-albuterol 3 mg 3 ml inhalation Q6H 02/16/24 02/19/24 (2.5 mg base)/3 mL nebulization soln Previous Rx's Medication Instructions Recorded albuterol sulfate 90 mcg/actuation 2 puff inhalation Q4HP PRN 10/15/22 aerosol inhaler (ProAir HFA) Shortness Of Breath Or Wheezing #8.5 grams aspirin 81 mg tablet,delayed 81 mg PO DAILY Heart disease #90 10/15/22 release tabs cholecalciferol (vitamin D3) 25 25 mcg PO DAILY Supplement #90 caps 10/15/22 mcg (1,000 unit) capsule pravastatin 20 mg tablet 20 mg PO HS Cholesterol #90 tabs 10/15/22 bupropion HCl 150 mg tablet,12 hr 150 mg PO BID #60 ea 05/29/23 sustained-release (Wellbutrin SR) metoclopramide HCl 5 mg tablet 5 mg PO TID #90 tabs 07/10/23 (Reglan) alprazolam 0.25 mg tablet 0.25 mg PO TID Anxiety #90 tabs 11/24/23 gabapentin 400 mg capsule 400 mg PO TID Pain #90 caps 11/24/23 guaifenesin 400 mg tablet 400 mg PO DAILY #120 tabs 11/28/23 buspirone 7.5 mg tablet 7.5 mg PO TID #90 tabs 01/14/24 fluticasone fur. 100 mcg-umeclid 1 inh inhalation DAILY 30 days #1 02/06/24 62.5 mcg-vilant 25 mcg ea inhalat.powder (Trelegy Ellipta) acetylcysteine 200 mg/mL (20 %) 1 ml inhalation BID 30 days #60 mL 02/17/24 solution sulfamethoxazole 800 1 tab PO BID 10 days #20 tabs 02/17/24 mg-trimethoprim 160 mg tablet (Bactrim DS) prednisone 50 mg tablet 50 mg PO DAILY 5 days #5 tabs 02/23/24 Allergies Allergy/AdvReac Type Severity Reaction Status Date / Time metronidazole Allergy Unknown I-HIVES Verified 02/19/24 10:36 nitrofurantoin Allergy Unknown Unknown Verified 02/19/24 10:36 [From MACROBID] allergy reaction [facility] Disclaimer: The information contained in this section may have been updated after the patient was seen, as this information can be updated by other users. Medical History Bronchiectasis History of smoking 30 or more pack years MRSA pneumonia Asthma Congenital diverticulum of esophagus Anxiety Essential hypertension Arthritis Diverticulosis History of falling History of dysuria History of cystitis Migraine Rheumatoid arthritis Intervertebral disc disorder Schizoaffective disorder Depression Dysphagia GERD (gastroesophageal reflux disease) Nicotine dependence Hx MRSA infection Atherosclerotic cardiovascular disease Hypothyroid Emphysema/COPD Hypertension Hyperlipidemia Pseudomonas urinary tract infection Gram-negative infection Lumbar radiculopathy Toe pain, left Breast nodule Lung nodule Closed head injury Fall Community acquired pneumonia Respiratory failure with hypoxia and hypercapnia Sepsis with acute organ dysfunction Community acquired bacterial pneumonia Sepsis COPD exacerbation Aspiration pneumonia Esophageal diverticulum E. coli UTI (urinary tract infection) Hypokalemia SIRS (systemic inflammatory response syndrome) Cholelithiasis Colon, diverticulosis Emphysematous cystitis Abdominal pain UTI (urinary tract infection) Pneumonia Tobacco dependence Decreased mobility Urinary incontinence Low back pain radiating to both legs Obesity (BMI 30-39.9) COPD with acute exacerbation Staphylococcus aureus pneumonia Lung nodule seen on imaging study Acquired hypothyroidism Chronic low back pain Generalized anxiety disorder Cough Acute bronchitis RLL pneumonia Acute exacerbation of chronic obstructive airways disease Surgical History H/O: hysterectomy Family History Other Family history of cancer Social History Smoking Status: Unknown if ever smoked second hand exposure: Yes alcohol intake: former substance use type: denies use current occupational status: retired Travel in the last 8 weeks: None household members: family housing: long-term diet: low salt caffeine: Yes ROS Obtained: Yes All systems reviewed & no additional complaints except as documented Physical Exam General General appearance: alert and in no apparent distress Head Head exam: atraumatic and normocephalic Eye Eye exam: Present normal appearance, PERRL and EOMI ENT ENT exam: Present normal oropharynx and normal external ear exam Neck Neck exam: Present normal inspection and full ROM Chest Chest inspection: Present normal inspection and symmetric chest wall rise; Absent tenderness Respiratory Respiratory exam: Present respiratory distress, wheezes, prolonged expiratory phase and other (Dyspneic) Cardiovascular Cardiovascular exam: Present regular rate and normal rhythm Abdominal Exam Abdominal exam: Present soft; Absent distention, tenderness or guarding Extremities Exam Extremities exam: Present normal inspection; Absent edema or joint swelling Back Exam Back exam: Present normal inspection; Absent tenderness Neurological Exam Neurological exam: Present alert and oriented X3; Absent motor sensory deficit Psychiatric Psychiatric exam: Present normal affect and normal mood Skin Skin exam: Present warm, dry and normal color Lymphatic Lymphatic Findings: no adenopathy Medical Decision Making Medical Records Medical records reviewed: Yes I reviewed the patient's medical records. Alex Inquiry Pt receiving controlled substance: No Alex was queried for this patient: No Vital Signs: 02/22/24 23:30 04/14/24 23:33 02/23/24 00:01 Temperature 98.0 F Temperature Source Oral Pulse Rate 74 72 Pulse Rate [Right Brachial] 81 Respiratory Rate 22 36 H 21 Blood Pressure 139/50 L 115/36 L Blood Pressure [Right Arm] 128/61 Blood Pressure Mean 79 63 Blood Pressure Mean [Right Arm] 83 Blood Pressure Source [Right Arm] Automatic Cuff Blood Pressure Position [Right Arm] Sitting 02 Sat by Pulse Oximetry 93 L 90 L 95 Oxygen Delivery Method Non-Rebreather Non-Rebreather Non-Rebreather 02/23/24 00:01 02/23/24 00:15 02/23/24 00:30 Temperature Temperature Source Pulse Rate 71 70 70 Pulse Rate [Right Brachial] Respiratory Rate 17 15 Blood Pressure 126/68 Blood Pressure [Right Arm] Blood Pressure Mean 75 Blood Pressure Mean [Right Arm] Blood Pressure Source [Right Arm] Blood Pressure Position [Right Arm] 02 Sat by Pulse Oximetry 92 L 90 L 90 L Oxygen Delivery Method Room Air 02/23/24 01:00 02/23/24 01:30 Temperature Temperature Source Pulse Rate 64 64 Pulse Rate [Right Brachial] Respiratory Rate 17 16 Blood Pressure 111/44 L 114/56 L Blood Pressure [Right Arm] Blood Pressure Mean 66 68 Blood Pressure Mean [Right Arm] Blood Pressure Source [Right Arm] Blood Pressure Position [Right Arm] 02 Sat by Pulse Oximetry 91 L 92 L Oxygen Delivery Method Room Air Room Air Lab Data Lab results reviewed: Yes I reviewed the patient's lab results. Lab Results 02/22/24 23:30: WBC 12.4 H, RBC 4.17 L, Hgb 11.1 L, Hct 35.4 L, MCV 84.9, MCH 26.7 L, MCHC 31.4 L, RDW 16.7, Plt Count 352, MPV 7.4, Neut % (Auto) 62.5, Lymph % (Auto) 28.7, [place] % (Auto) 6.2, Eos % (Auto) 1.8, Baso % (Auto) 0.6, Neut # (Auto) 7.8, Lymph # (Auto) 3.6, [place] # (Auto) 0.8, Eos # (Auto) 0.2, Baso # (Auto) 0.1, Sodium 139, Potassium 4.1, Chloride 105, Carbon Dioxide 29, Anion Gap 9.1, BUN 17, Creatinine 0.80, Estimated Creat Clear 78, Estimated GFR 70, Est GFR ( Amer) 85, Glucose 119 H, Calcium 9.2, Total Bilirubin 0.1 L, AST 27, ALT 16, Alkaline Phosphatase 55, Troponin I < 0.01, NT-Pro-B Natriuret Pep 44.4, Total Protein 6.5, Albumin 3.7, Globulin 2.8, Albumin/Globulin Ratio 1.3 02/22/24 23:40: VBG pH 7.35, VBG pCO2 45.9, VBG pO2 181.8 H, VBG HCO3 24.9, VBG Total CO2 26.4, VBG O2 Saturation 99.4 H, VBG Base Excess -0.6, VBG Lactic Acid 1.5 02/22/24 23:30 02/22/24 23:30 Orders (Tests/Meds): ED MEDICATIONS Discontinued Medications Generic Name Dose Route Start Last Admin Trade Name Freq PRN Reason Stop Dose Admin Albuterol/Ipratropium 3 ml 02/22/24 23:41 02/23/24 00:04 Ipratropium/Albuterol 3 Ml Neb IH 02/22/24 23:42 3 ml ONCE ONE Administration Magnesium Sulfate 2 gm in 50 mls @ 50 mls/hr 02/23/24 00:09 02/23/24 00:20 Magnesium Sulfate 2gm/50ml Premix IV 02/23/24 01:08 50 mls/hr ONCE ONE Administration Methylprednisolone Sodium Succinate 80 mg 02/23/24 00:10 02/23/24 00:20 Methylprednisolone Sod Succ 125mg Vial IV 02/23/24 00:11 80 mg ONCE ONE Administration ORDERS Category Date Time Status Chest XR -- portable [XR chest portable] Stat Exams 02/22/24 23:40 Completed BNP [NT Pro Brain Natriuretic Pep.] Stat Lab 02/22/24 23:30 Completed Complete Blood Count Auto Diff Stat Lab 02/22/24 23:30 Completed Comprehensive Metabolic Panel Stat Lab 02/22/24 23:30 Completed Lactate Venous Stat Lab 02/22/24 23:41 Ordered Troponin I Q3H Lab 02/23/24 02:45 Ordered Troponin I Q3H Lab 02/23/24 05:45 Ordered Troponin I Stat Lab 02/22/24 23:30 Completed Venous Blood Gas Stat RT 02/22/24 23:40 Completed ECG Data Tracing #1: I reviewed this ECG and interpreted as documented below: Sinus rhythm, rate of 83, no concerning ST or T wave changes, no evidence of arrhythmia ECG initial impression date: 02/22/24 ECG initial impression time: 23:45 HEART Score History (anamnesis): Slightly suspicious ECG: Normal Age: >65 years Risk factors: 1-2 risk factors Troponin: </= normal limit HEART Score: 3 Medical Decision Narrative: 73-year-old female with history of COPD, discharged about a week ago status post pneumonia, presents with gradually worsening shortness of breath today. History was obtained interactive discussion with patient. On arrival, patient is afebrile, hemodynamically stable, in mild respiratory distress with tachypnea, diffuse wheezing and prolonged expiratory phase noted, moving all extremities spontaneously. Patient initially requiring 6 L nasal cannula to maintain appropriate saturations. Differential includes but is not limited to acute COPD exacerbation, pneumonia, URI, heart failure. Patient was given additional DuoNeb for total of 3 DuoNebs, 80 mg IV Solu-Medrol, 2 g IV magnesium for symptomatic management and correction of underlying abnormalities. Workup initiated including CBC CMP troponin EKG chest x-ray. On re-evaluation, patient [remains afebrile, HD stable.] Patient now satting appropriately on home 3 L nasal cannula. Patient sleeping comfortably without respiratory distress. Repeat lung exam shows no wheezing and resolution of prolonged expiratory phase. Laboratory workup independently interpreted by me and significant for mild leukocytosis, stable renal function unremarkable VBG with no significant CO2 retention. Imaging independently interpreted by me and significant for improved infiltrates compared to recent admission. Stable appearing right upper lobe nodule that was present on prior CT and was addressed during her recent hospitalization. See radiology read for full review of final results. Admission for COPD exacerbation was considered, but deemed unnecessary due to symptomatic improvement with interventions.. Given patient history, exam and workup, patient's presentation most likely represents acute COPD exacerbation. Given no increase in sputum purulence/quantity and no new lung findings on x-ray, and given she has been on a long course of antibiotics recently, I do not think she needs additional antibiotics at this time. She was discharged in stable condition with a prescription for prednisone for treatment of COPD exacerbation. Procedures Risk/Benefits of Procedure(s) Were Explained: Yes Critical Care Critical Care Time Critical Care Time: No
[2024-02-23] MEDS: METHYLPREDNISOLONE SOD SUCC 125MG VIAL 80 MG IV (00:20)
[2024-02-23] MEDS: MAGNESIUM SULFATE IN WATER 2 GM/50 ML PIGGYBACK IV (00:20)
[2024-02-23 00:43] LABS: Troponin I < 0.01 ng/ml (0.00-0.034)
== END 2024-02-23 03:39 | disposition home or self-care (01) ==
PROVIDERS: Emergency Provider Emergency Medicine
DX: J44.1 Chronic obstructive pulmonary disease with (acute) exacerbation (principal); R91.1 Solitary pulmonary nodule; I10 Essential (primary) hypertension; K21.9 Gastro-esophageal reflux disease without esophagitis; E03.9 Hypothyroidism, unspecified; E78.5 Hyperlipidemia, unspecified; Z87.891 Personal history of nicotine dependence
CPT/HCPCS: 71045; 80053; 82803; 83880; 84484; 85025; 93005; 96365; 96375; 99284; J3475

== ENCOUNTER 2024-04-04 13:13 | Inpatient (IN) | payer MEDICARE, MEDICAID, SELFPAY ==
[2024-04-04] VITALS (13 sets, daily range): BP systolic 119–153; BP diastolic 57–87; PULSE 71–115; RESP 17–22; TEMP 36.6–36.9; O2SAT 88–97; BMI 29.7; BMI 29.9
--- NOTE | 2024-04-04 13:45 | XR_ITS ---
PROCEDURE INFORMATION: Exam: XR Chest Exam date and time: 04/04/2024 1:47 PM Age: 73 years old Clinical indication: Shortness of breath; Additional info: SOA TECHNIQUE: Imaging protocol: Radiologic exam of the chest. Views: 1 view. COMPARISON: CR XR CHEST PORTABLE 02/22/2024 11:42 PM FINDINGS: Lungs: Hazy airspace opacities in right lower lobe favored to represent atelectasis versus developing pneumonia. Pleural spaces: Unremarkable. No pleural effusion. No pneumothorax. Heart/Mediastinum: Unremarkable. No cardiomegaly. Bones/joints: Unremarkable. IMPRESSION: Hazy airspace opacities in right lower lobe favored to represent atelectasis versus developing pneumonia.
--- NOTE | 2024-04-04 13:52 | [facility]H.EDGENADL ---
Discharge Plan Disposition Patient Disposition: Admitted Condition: Serious Clinical Impressions Clinical Impression: COPD exacerbation Discharge ED Provider: [facility] HPI General Chief complaint: Shortness of Breath/Dyspnea Stated complaint: soa Time Seen by Provider: 04/04/24 13:45 Mode of Arrival: EMS Source of Information: Patient Limitations: No Limitations Description of Symptoms (Recalled from ER Triage Doc. by RN): Patient presents to ED with SOB via [facility]. Patient is a resident of [facility]. Patient is on 4L O2. History of Present Illness HPI narrative: The patient presents with a chief complaint of increased shortness of breath. She occasionally uses supplemental oxygen and confirms using it yesterday, typically at a flow rate of four liters. The patient's history of oxygen use and current respiratory symptoms were corroborated by an external source, likely EMS, who noted an increase in shortness of breath, prompting the visit from a nursing facility where the patient resides. History is severely limited secondary to patient's poor recollection of HPI and past medical history. Upon clarification of many details, patient reports that symptoms are coming and going, occasionally present, unclear if present at this time. Please note that above description of symptoms, in this electronic medical record under categorization of recalled from ER triage doctor by RN are reflective of an initial nursing assessment, however, is not reflective of my full history and physical exam that was personally taken and clarified. Consequentially, this preceding description of symptoms, which may include the patient's categorized chief complaint in the EMR, do not reflect my personal clinical impression, and the ultimate description of history of present illness and patient stated complaints should be deferred to this section of the note. Unless stated otherwise or congruent with this section of the note, additional signs, symptoms, or incongruence should be interpreted as inaccurate with my clinical impression. Related Data Home Medications Medication Instructions Recorded Confirmed acetaminophen 500 mg tablet 500 mg PO TID 12/20/22 04/04/24 levothyroxine 50 mcg tablet 50 mcg PO DAILY 03/28/23 04/04/24 melatonin 3 mg tablet 3 mg PO HS 03/28/23 04/04/24 pantoprazole 40 mg tablet,delayed 40 mg PO DAILY 03/28/23 04/04/24 release quetiapine 100 mg tablet 250 mg PO HS 03/28/23 04/04/24 cetirizine 10 mg tablet 10 mg PO DAILY 09/08/23 04/04/24 oxybutynin chloride 5 mg tablet 10 mg PO DAILY 10/14/23 04/04/24 trazodone 100 mg tablet 100 mg PO HS 10/14/23 04/04/24 dextromethorphan-guaifenesin 10 10 ml PO Q6H PRN Cough 11/28/23 04/04/24 mg-100 mg/5 mL oral liquid lactulose 10 gram/15 mL oral 30 ml PO DAILYP PRN Constipation 11/28/23 04/04/24 solution multivitamin with minerals 1 cap PO DAILY 11/28/23 04/04/24 sennosides 8.6 mg tablet (senna) 8.6 mg PO DAILY PRN Constipation 11/28/23 04/04/24 escitalopram oxalate 20 mg tablet 20 mg PO DAILY 02/03/24 04/04/24 (Lexapro) polyethylene glycol 3350 17 gram 17 g PO DAILY PRN Constipation 02/03/24 04/04/24 oral powder packet prednisone 5 mg tablet 5 mg PO DAILY 02/04/24 04/04/24 ipratropium 0.5 mg-albuterol 3 mg 3 ml inhalation Q6H 02/16/24 04/04/24 (2.5 mg base)/3 mL nebulization soln buspirone 7.5 mg tablet 10 mg PO TID 04/04/24 04/04/24 Previous Rx's Medication Instructions Recorded albuterol sulfate 90 mcg/actuation 2 puff inhalation Q4HP PRN 10/15/22 aerosol inhaler (ProAir HFA) Shortness Of Breath Or Wheezing #8.5 grams aspirin 81 mg tablet,delayed 81 mg PO DAILY Heart disease #90 10/15/22 release tabs cholecalciferol (vitamin D3) 25 25 mcg PO DAILY Supplement #90 caps 10/15/22 mcg (1,000 unit) capsule pravastatin 20 mg tablet 20 mg PO HS Cholesterol #90 tabs 10/15/22 bupropion HCl 150 mg tablet,12 hr 150 mg PO BID #60 ea 05/29/23 sustained-release (Wellbutrin SR) metoclopramide HCl 5 mg tablet 5 mg PO TID #90 tabs 07/10/23 (Reglan) alprazolam 0.25 mg tablet 0.25 mg PO TID Anxiety #90 tabs 11/24/23 gabapentin 400 mg capsule 400 mg PO TID Pain #90 caps 11/24/23 guaifenesin 400 mg tablet 400 mg PO DAILY #120 tabs 11/28/23 fluticasone fur. 100 mcg-umeclid 1 inh inhalation DAILY 30 days #1 02/06/24 62.5 mcg-vilant 25 mcg ea inhalat.powder (Trelegy Ellipta) Allergies Allergy/AdvReac Type Severity Reaction Status Date / Time metronidazole Allergy Unknown I-HIVES Verified 03/16/24 13:16 nitrofurantoin Allergy Unknown Unknown Verified 03/16/24 13:16 [From MACROBID] allergy reaction [facility] Disclaimer: The information contained in this section may have been updated after the patient was seen, as this information can be updated by other users. Medical History (Updated 04/04/24 @ 18:05 by Frankie Foley MD) Sepsis Bronchiectasis History of smoking 30 or more pack years MRSA pneumonia Asthma Congenital diverticulum of esophagus Anxiety Essential hypertension Arthritis Diverticulosis History of falling History of dysuria History of cystitis Migraine Rheumatoid arthritis Intervertebral disc disorder Schizoaffective disorder Depression Dysphagia GERD (gastroesophageal reflux disease) Nicotine dependence Hx MRSA infection Atherosclerotic cardiovascular disease Hypothyroid Emphysema/COPD Hypertension Hyperlipidemia Pseudomonas urinary tract infection Gram-negative infection Lumbar radiculopathy Toe pain, left Breast nodule Lung nodule Closed head injury Fall Community acquired pneumonia Respiratory failure with hypoxia and hypercapnia Sepsis with acute organ dysfunction Community acquired bacterial pneumonia COPD exacerbation Aspiration pneumonia Esophageal diverticulum E. coli UTI (urinary tract infection) Hypokalemia SIRS (systemic inflammatory response syndrome) Cholelithiasis Colon, diverticulosis Emphysematous cystitis Abdominal pain UTI (urinary tract infection) Pneumonia Tobacco dependence Decreased mobility Urinary incontinence Low back pain radiating to both legs Obesity (BMI 30-39.9) COPD with acute exacerbation Staphylococcus aureus pneumonia Lung nodule seen on imaging study Acquired hypothyroidism Chronic low back pain Generalized anxiety disorder Cough Acute bronchitis RLL pneumonia Acute exacerbation of chronic obstructive airways disease Surgical History H/O: hysterectomy Family History Other Family history of cancer Social History Smoking Status: Former smoker tobacco type: cigarettes packs per day: 1 second hand exposure: Yes alcohol intake: former substance use type: denies use current occupational status: retired Travel in the last 8 weeks: None household members: family housing: alf diet: low salt caffeine: Yes ROS Obtained: Yes other As per HPI Physical Exam General General appearance: alert Comment: Chronically ill-appearing Head Head exam: atraumatic and normocephalic Eye Eye exam: Present normal appearance Neck Neck exam: Present normal inspection Chest Chest inspection: Present normal inspection and symmetric chest wall rise Respiratory Respiratory exam: Present accessory muscle use, prolonged expiratory phase and other (Rhonchi bilaterally) Cardiovascular Cardiovascular exam: Present regular rate and normal rhythm Abdominal Exam Abdominal exam: Present soft Neurological Exam Neurological exam: Present alert and oriented X3 Psychiatric Psychiatric exam: Present normal affect and normal mood Skin Skin exam: Present warm and dry Medical Decision Making Medical Records Medical records reviewed: Yes I reviewed the patient's medical records. Alex Inquiry Pt receiving controlled substance: No Vital Signs: 04/04/24 13:13 04/04/24 13:30 04/04/24 14:00 Temperature 98.4 F Temperature Source Oral Pulse Rate 102 H 94 H Pulse Rate [Right Radial] 115 H Respiratory Rate 20 Blood Pressure 134/87 142/74 H Blood Pressure [Right Arm] 153/80 H Blood Pressure Mean Blood Pressure Mean [Right Arm] 104 Blood Pressure Source [Right Arm] Automatic Cuff Blood Pressure Position [Right Arm] Sitting 02 Sat by Pulse Oximetry 88 L 93 L 92 L Oxygen Delivery Method Nasal Cannula Nasal Cannula Oxygen Flow Rate (LPM) 4 04/04/24 14:30 04/04/24 15:00 04/04/24 15:30 Temperature Temperature Source Pulse Rate 74 Pulse Rate [Right Radial] Respiratory Rate Blood Pressure 138/70 145/66 H 133/57 L Blood Pressure [Right Arm] Blood Pressure Mean 94 95 Blood Pressure Mean [Right Arm] Blood Pressure Source [Right Arm] Blood Pressure Position [Right Arm] 02 Sat by Pulse Oximetry 92 L Oxygen Delivery Method Nasal Cannula Oxygen Flow Rate (LPM) 04/04/24 16:00 04/04/24 16:27 Temperature 97.8 F Temperature Source Axillary Pulse Rate 72 79 Pulse Rate [Right Radial] Respiratory Rate 22 Blood Pressure 130/66 130/66 Blood Pressure [Right Arm] Blood Pressure Mean Blood Pressure Mean [Right Arm] Blood Pressure Source [Right Arm] Blood Pressure Position [Right Arm] 02 Sat by Pulse Oximetry 92 L Oxygen Delivery Method Nasal Cannula Nasal Cannula Oxygen Flow Rate (LPM) Lab Data Lab Results 04/04/24 13:13: WBC 28.0 H*, RBC 4.37, Hgb 11.9 L, Hct 38.1, MCV 87.2, MCH 27.3, MCHC 31.4 L, RDW 16.9, Plt Count 353, MPV 7.5, Neut % (Auto) 87.3 H, Lymph % (Auto) 8.0 L, [place] % (Auto) 4.3, Eos % (Auto) 0.3, Baso % (Auto) 0.3, Neut # (Auto) 24.4 H, Lymph # (Auto) 2.2, [place] # (Auto) 1.2 H, Eos # (Auto) 0.1, Baso # (Auto) 0.1, Total Counted 100, Neutrophils % (Manual) 86 H, Lymphocytes % (Manual) 9 L, Monocytes % (Manual) 5, Platelet Estimate Normal, Hypochromasia 1+, Sodium 135 L, Potassium 4.3, Chloride 95 L, Carbon Dioxide 33 H, Anion Gap 11.3, BUN 9, Creatinine 0.60, Estimated Creat Clear 67, Estimated GFR 98, Est GFR ( Amer) 118, Glucose 129 H, Calcium 9.6, Total Bilirubin 0.3, AST 30, ALT 21, Alkaline Phosphatase 74, Total Protein 7.2, Albumin 4.1, Globulin 3.1, Albumin/Globulin Ratio 1.3 04/04/24 13:46: VBG pH 7.33, VBG pCO2 52.2 H, VBG pO2 46.3 H, VBG HCO3 27.0, VBG Total CO2 28.6 H, VBG O2 Saturation 79.1 H, VBG Base Excess 1.0, VBG Lactic Acid 1.7 04/04/24 13:50: SARS-CoV-2 (PCR) Not detected, Influenza A Untype (PCR) Not detected, Influenza Type B (PCR) Not detected 04/04/24 13:13 04/04/24 13:13 Orders (Tests/Meds): ED MEDICATIONS Generic Name Dose Route Start Last Admin Trade Name Freq PRN Reason Stop Dose Admin Albuterol/Ipratropium 3 ml 05/26/24 18:00 04/04/24 18:13 Ipratropium/Albuterol 3 Ml Neb IH 05/04/24 17:59 3 ml Q6RT [facility] Administration Alprazolam 0.25 mg 04/04/24 21:00 Alprazolam 0.25mg Tablet PO 05/04/24 20:59 TID [facility] Aspirin 81 mg 04/05/24 09:00 Aspirin Ec 81mg Tablet PO 05/05/24 08:59 DAILY [facility] Bupropion HCl 150 mg 04/04/24 21:00 Bupropion Hcl Sr 150mg Tab PO 05/04/24 20:59 BID [facility] Citalopram Hydrobromide 40 mg 04/05/24 09:00 Citalopram 40mg Tablet PO 05/05/24 08:59 DAILY [facility] Enoxaparin Sodium 40 mg 04/05/24 09:00 Enoxaparin 40mg/0.4ml Syringe SQ 05/05/24 08:59 DAILY [facility] Fluticasone/Umeclidinium/Vilanterol 1 puff 04/05/24 09:00 Fluticasone/Umeclidin/Vilanter 100/62.5/25mcg Inhaler 05/05/24 08:59 DAILY [facility] Gabapentin 400 mg 04/04/24 21:00 Gabapentin 400mg Capsule PO 05/04/24 20:59 TID [facility] Piperacillin Sod/Tazobactam 50 mls @ 100 mls/hr 04/04/24 21:00 Sod 3.375 gm/ Sodium Chloride IV 04/14/24 20:59 Q6H [facility] Vancomycin/PEG/NADA/Lysine/Water 1.5 gm in 300 mls @ 150 mls/hr 04/04/24 17:00 04/04/24 17:14 Vancomycin 1.5gm/300ml (Peg) Premix IV 04/04/24 18:59 150 mls/hr ONCE ONE Administration Vancomycin/PEG/NADA/Lysine/Water 1.5 gm in 300 mls @ 150 mls/hr 04/05/24 17:00 Vancomycin 1.5gm/300ml (Peg) Premix IV 04/15/24 16:59 Q24H [facility] Levothyroxine Sodium 50 mcg 04/05/24 09:00 Levothyroxine 50mcg (0.05mg) Tab PO 05/05/24 08:59 DAILY [facility] Miscellaneous 1 each 04/04/24 16:00 04/04/24 16:54 Vancomycin Consult Request NOTAPPLIC 05/04/24 15:59 1 each CONSULT PHARMACY [facility] Administration Nicotine 21 mg 04/04/24 15:54 Nicotine 21mg/24hr Patch TD 05/04/24 15:53 DAILYP PRN Nicotine Cravings Non-Formulary Medication 10 mg 04/04/24 21:00 Buspirone PO 05/04/24 20:59 TID [facility] Non-Formulary Medication 3 mg 04/04/24 21:00 Melatonin PO 05/04/24 20:59 HS [facility] Oxybutynin Chloride 10 mg 04/05/24 09:00 Oxybutynin 5mg Tab PO 05/05/24 08:59 DAILY [facility] Pantoprazole Sodium 40 mg 04/05/24 09:00 Pantoprazole 40mg Tablet PO 05/05/24 08:59 DAILY [facility] Polyethylene Glycol 17 gm 04/04/24 17:38 Polyethylene Glycol 3350 17 Gm Packet PO 05/04/24 17:37 DAILY PRN Constipation Quetiapine Fumarate 250 mg 04/04/24 21:00 Quetiapine 100mg Tablet PO 05/04/24 20:59 HS [facility] Sodium Chloride 3 ml 04/04/24 16:14 Sodium Chloride 3% 15ml [facility] 05/04/24 16:13 ONCE PRN INDUCE SPUTUM COLLECTION Discontinued Medications Generic Name Dose Route Start Last Admin Trade Name Freq PRN Reason Stop Dose Admin Albuterol/Ipratropium 3 ml 04/04/24 13:45 04/04/24 14:07 Ipratropium/Albuterol 3 Ml [facility] 04/04/24 13:46 3 ml ONCE ONE Administration Albuterol/Ipratropium 3 ml 04/04/24 15:47 04/04/24 16:03 Ipratropium/Albuterol 3 Ml [facility] 04/04/24 15:48 3 ml ONCE ONE Administration Piperacillin Sod/Tazobactam 100 mls @ 200 mls/hr 04/04/24 14:58 04/04/24 15:12 Sod 4.5 gm/ Sodium Chloride IV 04/04/24 15:27 Not Given ONCE ONE Piperacillin Sod/Tazobactam 100 mls @ 200 mls/hr 04/04/24 15:11 04/04/24 15:12 Sod 4.5 gm/ Sodium Chloride IV 04/04/24 15:40 200 mls/hr ONCE ONE Administration Methylprednisolone Sodium Succinate 40 mg 04/04/24 13:45 04/04/24 14:07 Methylprednisolone Sod Succ 40mg Vial IV 04/04/24 13:46 40 mg ONCE ONE Administration ORDERS Category Date Time Status XR chest portable Stat Exams 04/04/24 13:45 Completed CBC w/Auto Diff [Complete Blood Count Auto Diff] Stat Lab 04/04/24 13:13 Completed CMP [Comprehensive Metabolic Panel] Stat Lab 04/04/24 13:13 Completed Complete Blood Count Auto Diff [facility] Lab 04/05/24 06:00 Ordered Comprehensive Metabolic Panel [facility] Lab 04/05/24 06:00 Ordered Full Resp Panel w/COVID ([facility]) Routine Lab 04/04/24 13:50 Received Magnesium AMLAB Lab 04/05/24 06:00 Ordered Rapid PCR Covid and Flu A/B Stat Lab 04/04/24 13:50 Completed Blood Culture Stat Micro 04/04/24 15:12 Received MRSA Screen Routine Micro 04/04/24 16:48 Received Sputum Culture & Gram Stain Routine Micro 04/04/24 16:14 Ordered VBG [Venous Blood Gas] Stat RT 04/04/24 13:46 Completed Medical Decision Narrative: Patient with history and exam per above presenting for evaluation of shortness of breath Diagnoses considered include, COPD exacerbation, pleural effusion, noncardiogenic edema, pneumothorax, pneumonia, CHF exacerbation, ED workup and treatment included: ED MEDICATIONS Generic Name Dose Route Start Last Admin Trade Name Freq PRN Reason Stop Dose Admin Albuterol/Ipratropium 3 ml 04/04/24 18:00 04/04/24 18:13 Ipratropium/Albuterol 3 Ml Neb IH 05/04/24 17:59 3 ml Q6RT [facility] Administration Alprazolam 0.25 mg 04/04/24 21:00 Alprazolam 0.25mg Tablet PO 05/04/24 20:59 TID [facility] Aspirin 81 mg 04/05/24 09:00 Aspirin Ec 81mg Tablet PO 05/05/24 08:59 DAILY [facility] Bupropion HCl 150 mg 04/04/24 21:00 Bupropion Hcl Sr 150mg Tab PO 05/04/24 20:59 BID [facility] Citalopram Hydrobromide 40 mg 04/05/24 09:00 Citalopram 40mg Tablet PO 05/05/24 08:59 DAILY [facility] Enoxaparin Sodium 40 mg 04/05/24 09:00 Enoxaparin 40mg/0.4ml Syringe SQ 05/05/24 08:59 DAILY [facility] Fluticasone/Umeclidinium/Vilanterol 1 puff 04/05/24 09:00 Fluticasone/Umeclidin/Vilanter 100/62.5/25mcg Inhaler IH 05/05/24 08:59 DAILY [facility] Gabapentin 400 mg 04/04/24 21:00 Gabapentin 400mg Capsule PO 05/04/24 20:59 TID [facility] Piperacillin Sod/Tazobactam 50 mls @ 100 mls/hr 04/04/24 21:00 Sod 3.375 gm/ Sodium Chloride IV 04/14/24 20:59 Q6H [facility] Vancomycin/PEG/NADA/Lysine/Water 1.5 gm in 300 mls @ 150 mls/hr 04/04/24 17:00 04/04/24 17:14 Vancomycin 1.5gm/300ml (Peg) Premix IV 04/04/24 18:59 150 mls/hr ONCE ONE Administration Vancomycin/PEG/NADA/Lysine/Water 1.5 gm in 300 mls @ 150 mls/hr 04/05/24 17:00 Vancomycin 1.5gm/300ml (Peg) Premix IV 04/15/24 16:59 Q24H [facility] Levothyroxine Sodium 50 mcg 04/05/24 09:00 Levothyroxine 50mcg (0.05mg) Tab PO 05/05/24 08:59 DAILY [facility] Miscellaneous 1 each 04/04/24 16:00 04/04/24 16:54 Vancomycin Consult Request NOTAPPLIC 05/04/24 15:59 1 each CONSULT PHARMACY [facility] Administration Nicotine 21 mg 04/04/24 15:54 Nicotine 21mg/24hr Patch TD 05/04/24 15:53 DAILYP PRN Nicotine Cravings Non-Formulary Medication 10 mg 04/04/24 21:00 Buspirone PO 05/04/24 20:59 TID [facility] Non-Formulary Medication 3 mg 04/04/24 21:00 Melatonin PO 05/04/24 20:59 HS [facility] Oxybutynin Chloride 10 mg 04/05/24 09:00 Oxybutynin 5mg Tab PO 05/05/24 08:59 DAILY [facility] Pantoprazole Sodium 40 mg 04/05/24 09:00 Pantoprazole 40mg Tablet PO 05/05/24 08:59 DAILY [facility] Polyethylene Glycol 17 gm 04/04/24 17:38 Polyethylene Glycol 3350 17 Gm Packet PO 05/04/24 17:37 DAILY PRN Constipation Quetiapine Fumarate 250 mg 04/04/24 21:00 Quetiapine 100mg Tablet PO 05/04/24 20:59 HS [facility] Sodium Chloride 3 ml 04/04/24 16:14 Sodium Chloride 3% 15ml [facility] 05/04/24 16:13 ONCE PRN INDUCE SPUTUM COLLECTION Discontinued Medications Generic Name Dose Route Start Last Admin Trade Name Freq PRN Reason Stop Dose Admin Albuterol/Ipratropium 3 ml 04/04/24 13:45 04/04/24 14:07 Ipratropium/Albuterol 3 Ml [facility] 04/04/24 13:46 3 ml ONCE ONE Administration Albuterol/Ipratropium 3 ml 04/04/24 15:47 04/04/24 16:03 Ipratropium/Albuterol 3 Ml [facility] 04/04/24 15:48 3 ml ONCE ONE Administration Piperacillin Sod/Tazobactam 100 mls @ 200 mls/hr 04/04/24 14:58 04/04/24 15:12 Sod 4.5 gm/ Sodium Chloride IV 04/04/24 15:27 Not Given ONCE ONE Piperacillin Sod/Tazobactam 100 mls @ 200 mls/hr 04/04/24 15:11 04/04/24 15:12 Sod 4.5 gm/ Sodium Chloride IV 04/04/24 15:40 200 mls/hr ONCE ONE Administration Methylprednisolone Sodium Succinate 40 mg 04/04/24 13:45 04/04/24 14:07 Methylprednisolone Sod Succ 40mg Vial IV 04/04/24 13:46 40 mg ONCE ONE Administration ORDERS Category Date Time Status XR chest portable Stat Exams 04/04/24 13:45 Completed CBC w/Auto Diff [Complete Blood Count Auto Diff] Stat Lab 04/04/24 13:13 Completed CMP [Comprehensive Metabolic Panel] Stat Lab 04/04/24 13:13 Completed Complete Blood Count Auto Diff [facility] Lab 04/05/24 06:00 Ordered Comprehensive Metabolic Panel [facility] Lab 04/05/24 06:00 Ordered Full Resp Panel w/COVID ([facility]) Routine Lab 04/04/24 13:50 Received Magnesium [facility] Lab 04/05/24 06:00 Ordered Rapid PCR Covid and Flu A/B Stat Lab 04/04/24 13:50 Completed Blood Culture Stat Micro 04/04/24 15:12 Received MRSA Screen Routine Micro 04/04/24 16:48 Received Sputum Culture & Gram Stain Routine Micro 04/04/24 16:14 Ordered VBG [Venous Blood Gas] Stat RT 04/04/24 13:46 Completed Labs were independently interpreted by me, significant for marked leukocytosis to 28.0, hemoglobin 11.9, VBG without acidosis Imaging was independently visualized and interpreted by me, significant for right lower lobe airspace disease. Please refer to radiology report for full details. Patient will benefit from admission for further management of suspected COPD exacerbation, pneumonia. Patient was accepted for admission by hospitalist. Critical Care Critical Care Time Critical Care Time: No
[2024-04-04 13:54] LABS: Chloride 95 mmol/L (98-107); Potassium 4.3 mmoL/L (3.5-5.1); Sodium 135 mmol/L (136-145)
[2024-04-04 13:56] LABS: Basophils # 0.1 K/mm3 (0-0.2); Basophils % 0.3 % (0.1-2.0); Eosinophils # 0.1 K/mm3 (0.0-0.4); Eosinophils % 0.3 % (0.1-12.0); Hematocrit 38.1 % (37.0-47.0); Hemoglobin 11.9 g/dL (12.2-16.2); Lymphocytes # 2.2 K/mm3 (0.7-4.5); Mean Corpuscular HGB Conc 31.4 g/dL (31.8-35.4); Mean Corpuscular Hemoglobin 27.3 pg (27.0-31.2); Mean Corpuscular Volume 87.2 fl (81-99); Mean Platelet Volume 7.5 fl (7.4-10.4); Monocytes # 1.2 K/mm3 (0.1-1.0); Monocytes % 4.3 % (1.7-9.3); Neutrophils # 24.4 K/mm3 (1.8-7.8); Neutrophils % 87.3 % (37.0-80.0); Platelet Count 353 K/mm3 (142-424); Red Blood Count 4.37 M/mm3 (4.20-5.40); Red Cell Distribution Width 16.9 % (11.5-17.5)
[2024-04-04 13:57] LABS: Coronavirus 19, PCR Not Detected (NotDetected); Influenza A, PCR Not Detected (NotDetected); Influenza B, PCR Not Detected (NotDetected)
[2024-04-04 13:57] LABS: Alanine Aminotransferase 21 U/L (12-78); Albumin Level 4.1 g/dl (3.5-5.0); Albumin/Globulin Ratio 1.3 (1.1-1.8); Alkaline Phosphatase 74 U/L (38-126); Anion Gap 11.3 mEq/L (5-15); Aspartate Amino Transferase 30 U/L (14-36); Bilirubin,Total 0.3 mg/dl (0.2-1.3); Blood Urea Nitrogen 9 mg/dl (7-17); Calcium 9.6 mg/dl (8.4-10.2); Carbon Dioxide 33 mmol/L (22.0-30.0); Creatinine Clearance Estimated 67 mL/min (50-200); Estimated Glomerular Filt Rate 98 ml/min (>60); GFR (African American) 118 ML/MIN (>60); Globulin 3.1 g/dL (1.3-3.2); Glucose 129 mg/dl (74-100); Total Protein,Serum 7.2 g/dl (6.3-8.2)
[2024-04-04 14:01] LABS: MANUAL DIFFERENTIAL MANUAL DIFFERENTIAL (MANUAL DIFF)
[2024-04-04 14:04] LABS: Lactate Venous 1.7 mmol/L (0.4-2.0); VBG Oxygen Saturation 79.1 % (50-70); VBG PH 7.33 mmol/L (7.31-7.41); VBG PO2 46.3 mmol/L (28-40); VBG Total CO2 28.6 mmol/L (23-27)
[2024-04-04 14:06] LABS: VBG PCO2 52.2 mmol/L (35-51)
[2024-04-04] MEDS: IPRATROPIUM/ALBUTEROL 3 ML NEB IH ×4 (14:07→23:02)
[2024-04-04] MEDS: METHYLPREDNISOLONE SOD SUCC 40MG VIAL 40 MG IV (14:07)
[2024-04-04] MEDS: PIPERACILLIN/TAZO 4.5 GM in 0.9 % SODIUM CHLORIDE 100 ML IV (15:12)
[2024-04-04 15:23] LABS: Hypochromasia 1+; Lymphocytes % 9 % (10-50); Monocytes % 5 % (2-9); Neutrophils % 86 % (42-76); Platelet Estimate Normal; Total Cells Counted 100
--- NOTE | 2024-04-04 15:55 | PC.NURSE ---
Admissions notified of admit to room 202 for COPD to . OBS
--- NOTE | 2024-04-04 16:09 | PC.NURSE ---
report given to BRYANNA Acevedo at this time
--- NOTE | 2024-04-04 16:09 | EXP.HP ---
History of Present Illness *Admission Date: 04/04/24 *Reason for visit:: shortness of breath *History of present illness: Ms. Sommer is a 73-year-old female with history of COPD on 3 L oxygen at baseline. Also has hypothyroidism, diverticulosis, hypertension, GERD, hyperlipidemia. She resides at [facility]. She presented to the ER via EMS because of worsening shortness of breath and fatigue. Patient states she has been having a cough and feeling more weak and ill for the past 4 to 5 days. On arrival her O2 sat was 88% on her baseline 3 L. On arrival she was treated with antibiotics, steroids, DuoNebs. Workup concerning for sepsis as she was tachycardic, tachypneic, leukocytosis of 28,000, and chest imaging showing right-sided pneumonia. Medicine was consulted for admission. On arrival to the floor, patient appears quite fatigued. Able to interact and answer basic questions. Denies any chest pain, nausea, vomiting, diarrhea. Complains of symptoms for 5 days. Complains of significant weakness. Denies any fever. [facility] Disclaimer: The information contained in this section may have been updated after the patient was seen, as this information can be updated by other users. Medical History (Updated 04/04/24 @ 18:05 by Frankie Foley MD) Sepsis Bronchiectasis History of smoking 30 or more pack years MRSA pneumonia Asthma Congenital diverticulum of esophagus Anxiety Essential hypertension Arthritis Diverticulosis History of falling History of dysuria History of cystitis Migraine Rheumatoid arthritis Intervertebral disc disorder Schizoaffective disorder Depression Dysphagia GERD (gastroesophageal reflux disease) Nicotine dependence Hx MRSA infection Atherosclerotic cardiovascular disease Hypothyroid Emphysema/COPD Hypertension Hyperlipidemia Pseudomonas urinary tract infection Gram-negative infection Lumbar radiculopathy Toe pain, left Breast nodule Lung nodule Closed head injury Fall Community acquired pneumonia Respiratory failure with hypoxia and hypercapnia Sepsis with acute organ dysfunction Community acquired bacterial pneumonia COPD exacerbation Aspiration pneumonia Esophageal diverticulum E. coli UTI (urinary tract infection) Hypokalemia SIRS (systemic inflammatory response syndrome) Cholelithiasis Colon, diverticulosis Emphysematous cystitis Abdominal pain UTI (urinary tract infection) Pneumonia Tobacco dependence Decreased mobility Urinary incontinence Low back pain radiating to both legs Obesity (BMI 30-39.9) COPD with acute exacerbation Staphylococcus aureus pneumonia Lung nodule seen on imaging study Acquired hypothyroidism Chronic low back pain Generalized anxiety disorder Cough Acute bronchitis RLL pneumonia Acute exacerbation of chronic obstructive airways disease Surgical History H/O: hysterectomy Family History Other Family history of cancer Social History Smoking Status: Former smoker tobacco type: cigarettes packs per day: 1 second hand exposure: Yes alcohol intake: former substance use type: denies use current occupational status: retired Travel in the last 8 weeks: None household members: family housing: longterm diet: low salt caffeine: Yes Review of Systems Review of Systems Review of systems (narrative): 14 point review of systems performed, pertinent positives and negatives as per [facility] Meds Home Medications and Allergies Home Medications Medication Instructions Recorded Confirmed Type albuterol sulfate 90 mcg/actuation 2 puff inhalation Q4HP PRN 10/15/22 04/04/24 Rx aerosol inhaler (ProAir HFA) Shortness Of Breath Or Wheezing #8.5 grams aspirin 81 mg tablet,delayed 81 mg PO DAILY Heart disease #90 10/15/22 04/04/24 Rx release tabs cholecalciferol (vitamin D3) 25 25 mcg PO DAILY Supplement #90 caps 10/15/22 04/04/24 Rx mcg (1,000 unit) capsule pravastatin 20 mg tablet 20 mg PO HS Cholesterol #90 tabs 10/15/22 04/04/24 Rx acetaminophen 500 mg tablet 500 mg PO TID 12/20/22 04/04/24 History levothyroxine 50 mcg tablet 50 mcg PO DAILY 03/28/23 04/04/24 History melatonin 3 mg tablet 3 mg PO HS 03/28/23 04/04/24 History pantoprazole 40 mg tablet,delayed 40 mg PO DAILY 03/28/23 04/04/24 History release quetiapine 100 mg tablet 250 mg PO HS 03/28/23 04/04/24 History bupropion HCl 150 mg tablet,12 hr 150 mg PO BID #60 ea 05/29/23 04/04/24 Rx sustained-release (Wellbutrin SR) metoclopramide HCl 5 mg tablet 5 mg PO TID #90 tabs 07/10/23 04/04/24 Rx (Reglan) cetirizine 10 mg tablet 10 mg PO DAILY 09/08/23 04/04/24 History oxybutynin chloride 5 mg tablet 10 mg PO DAILY 10/14/23 04/04/24 History trazodone 100 mg tablet 100 mg PO HS 10/14/23 04/04/24 History alprazolam 0.25 mg tablet 0.25 mg PO TID Anxiety #90 tabs 11/24/23 04/04/24 Rx gabapentin 400 mg capsule 400 mg PO TID Pain #90 caps 11/24/23 04/04/24 Rx dextromethorphan-guaifenesin 10 10 ml PO Q6H PRN Cough 11/28/23 04/04/24 History mg-100 mg/5 mL oral liquid guaifenesin 400 mg tablet 400 mg PO DAILY #120 tabs 11/28/23 04/04/24 Rx lactulose 10 gram/15 mL oral 30 ml PO DAILYP PRN Constipation 11/28/23 04/04/24 History solution multivitamin with minerals 1 cap PO DAILY 11/28/23 04/04/24 History sennosides 8.6 mg tablet (senna) 8.6 mg PO DAILY PRN Constipation 11/28/23 04/04/24 History escitalopram oxalate 20 mg tablet 20 mg PO DAILY 02/03/24 04/04/24 History (Lexapro) polyethylene glycol 3350 17 gram 17 g PO DAILY PRN Constipation 02/03/24 04/04/24 History oral powder packet prednisone 5 mg tablet 5 mg PO DAILY 02/04/24 04/04/24 History fluticasone fur. 100 mcg-umeclid 1 inh inhalation DAILY 30 days #1 02/06/24 04/04/24 Rx 62.5 mcg-vilant 25 mcg ea inhalat.powder (Trelegy Ellipta) ipratropium 0.5 mg-albuterol 3 mg 3 ml inhalation Q6H 02/16/24 04/04/24 History (2.5 mg base)/3 mL nebulization soln buspirone 7.5 mg tablet 10 mg PO TID 04/04/24 04/04/24 History New Prescriptions to Start Prescriptions: Allergies Allergy/AdvReac Type Severity Reaction Status Date / Time metronidazole Allergy Unknown I-HIVES Verified 03/16/24 13:16 nitrofurantoin Allergy Unknown Unknown Verified 05/07/24 13:16 [From MACROBID] allergy reaction Exam Data for Last 24 hours Vital signs and Labs for Last 24 Hours: Temp Pulse Resp BP Pulse Ox O2 Del Method O2 Flow Rate 98.4 F 72 20 130/66 92 L Nasal Cannula 4 04/04/24 13:13 04/04/24 16:00 04/04/24 13:13 04/04/24 16:00 04/04/24 16:00 04/04/24 16:00 04/04/24 13:13 Laboratory Results - last 24 hr 04/04/24 13:13: WBC 28.0 H*, RBC 4.37, Hgb 11.9 L, Hct 38.1, MCV 87.2, MCH 27.3, MCHC 31.4 L, RDW 16.9, Plt Count 353, MPV 7.5, Neut % (Auto) 87.3 H, Lymph % (Auto) 8.0 L, [place] % (Auto) 4.3, Eos % (Auto) 0.3, Baso % (Auto) 0.3, Neut # (Auto) 24.4 H, Lymph # (Auto) 2.2, [place] # (Auto) 1.2 H, Eos # (Auto) 0.1, Baso # (Auto) 0.1, Total Counted 100, Neutrophils % (Manual) 86 H, Lymphocytes % (Manual) 9 L, Monocytes % (Manual) 5, Platelet Estimate Normal, Hypochromasia 1+, Sodium 135 L, Potassium 4.3, Chloride 95 L, Carbon Dioxide 33 H, Anion Gap 11.3, BUN 9, Creatinine 0.60, Estimated Creat Clear 67, Estimated GFR 98, Est GFR ( Amer) 118, Glucose 129 H, Calcium 9.6, Total Bilirubin 0.3, AST 30, ALT 21, Alkaline Phosphatase 74, Total Protein 7.2, Albumin 4.1, Globulin 3.1, Albumin/Globulin Ratio 1.3 04/04/24 13:46: VBG pH 7.33, VBG pCO2 52.2 H, VBG pO2 46.3 H, VBG HCO3 27.0, VBG Total CO2 28.6 H, VBG O2 Saturation 79.1 H, VBG Base Excess 1.0, VBG Lactic Acid 1.7 04/04/24 13:50: SARS-CoV-2 (PCR) Not detected, Influenza A Untype (PCR) Not detected, Influenza Type B (PCR) Not detected I & O for Last 24 hours: Intake & Output 04/01/24 04/02/24 04/03/24 04/04/24 23:59 23:59 23:59 23:59 Weight 86.183 kg Constitutional Constitutional: mild distress, obese, chronically ill appearing and cooperative *Routine HEENT Exam Head: Present normocephalic and atraumatic Eye: Present EOMI, PERRL and normal accommodation ENT: Present mucous membranes moist *Routine Neck Exam Neck: Present supple, full ROM and trachea midline *Routine Respiratory Exam Respiratory: Present prolonged expiratory phase, rhonchi, crackles (Right lung field prominent posterior region), diminished air movement and symmetric chest movement; Absent wheezes *Routine Cardiovascular Exam Cardiovascular: Present RRR, Normal S1 and Normal S2 *Routine Abdominal Exam Abdominal: Present soft and normoactive bowel sounds; Absent organomegaly *Routine Rectal Exam Rectal:: deferred *Routine Genitalia Exam Genitalia:: deferred *Routine Extremities Exam Extremities: Present pulses intact and normal capillary refill; Absent cyanosis, clubbing or edema Comments: right leg shortness and lateralization *Routine Skin Exam Skin: Present intact, dry and warm *Routine Neurological Exam Neurological: Present alert, normal reflexes, moving all extremities and normal speech Comments: Oriented to self and place. Unable to tell me date and day. Routine Psychiatric Exam Psychiatric: Present normal thought process, cooperative and good judgment Assessment and Plan *Assessment and plan (1) Sepsis: Status: Acute Qualifiers: Sepsis acute organ dysfunction status: without acute organ dysfunction Sepsis type: sepsis due to unspecified organism Qualified Code(s): A41.9 - Sepsis, unspecified organism Category: Medical Code(s): A41.9 - Sepsis, unspecified organism (2) Pneumonia: Status: Acute Qualifiers: Laterality: bilateral Lung location: lower lobe of lung Pneumonia type: due to unspecified organism Qualified Code(s): J18.9 - Pneumonia, unspecified organism Category: Medical Code(s): J18.9 - Pneumonia, unspecified organism (3) Acute and chronic respiratory failure: Status: Resolved Category: Medical Code(s): J96.20 - Acute and chronic respiratory failure, unspecified whether with hypoxia or hypercapnia (4) COPD (chronic obstructive pulmonary disease): Status: Chronic Qualifiers: COPD type: unspecified COPD Qualified Code(s): J44.9 - Chronic obstructive pulmonary disease, unspecified Category: Medical Code(s): J44.9 - Chronic obstructive pulmonary disease, unspecified (5) Anxiety disorder: Status: Chronic Qualifiers: Anxiety disorder type: unspecified anxiety disorder Qualified Code(s): F41.9 - Anxiety disorder, unspecified Category: Medical Code(s): F41.9 - Anxiety disorder, unspecified (6) Hypothyroidism: Status: Chronic Qualifiers: Hypothyroidism type: unspecified Qualified Code(s): E03.9 - Hypothyroidism, unspecified Category: Medical Code(s): E03.9 - Hypothyroidism, unspecified (7) Schizophrenia: Status: Chronic Qualifiers: Schizophrenia type: unspecified Qualified Code(s): F20.9 - Schizophrenia, unspecified Category: Medical Code(s): F20.9 - Schizophrenia, unspecified (8) Hyperlipidemia: Status: Chronic Qualifiers: Hyperlipidemia type: unspecified Qualified Code(s): E78.5 - Hyperlipidemia, unspecified Category: Medical Code(s): E78.5 - Hyperlipidemia, unspecified (9) Depression: Status: Chronic Qualifiers: Depression Type: unspecified Qualified Code(s): F32.A - Depression, unspecified Category: Medical Code(s): F32.A - Depression, unspecified (10) Tobacco dependence: Status: Chronic Category: Medical Code(s): F17.200 - Nicotine dependence, unspecified, uncomplicated (11) History of smoking 30 or more pack years: Status: Chronic Category: Social Hx Code(s): Z87.891 - Personal history of nicotine dependence Plan 73-year-old female who resides at a [facility] who presents with acute on chronic hypoxemic respiratory failure secondary to pneumonia. Meeting sepsis criteria with leukocytosis, tachycardia, tachypnea. Chest imaging in the ER with right-sided pneumonia. Discussed case with ER physician, request admission for IV antibiotics and further management of sepsis. Medicine agreed to admit. Patient's PSI/port score is 104 because of her age, female sex, longterm resident, pH less than 7.35 (7.33). Given her class IV risk, hospitalization appropriate. Necessitating inpatient management. Initiated on vancomycin and Zosyn given history of MRSA and pneumonia a month ago. Problems addressed as follows: Sepsis Acute on chronic hypoxemic respiratory failure Pneumonia -Chest imaging personally reviewed, concern for right-sided pneumonia and consolidation. Crackles on exam. -Initiate vancomycin given previous history of MRSA, drug therapy necessitating close monitoring -Continue Zosyn 3.375 g every 6 hours IV -Initiate DuoNebs every 6 hours scheduled -Continue supplemental oxygen, currently on 4 L, goal saturation greater than 90%; baseline oxygen requirement 3 L -Sputum culture pending, MRSA swab pending - Comprehensive respiratory panel pending -White cell count elevated at 28,000. Repeat CBC, CMP, magnesium ordered for the morning. Kidney function normal with BUN 9, creatinine 0.6. Continue buspirone 7.5 mg 3 times a day for mood Continue Lexapro 20 mg daily for depression Continue MiraLAX daily as needed for constipation Continue alprazolam 0.25 mg 3 times a day for anxiety Continue aspirin 81 mg daily for CAD Holding trazodone 100 mg nightly Continue Seroquel 250 mg nightly for mood and sleep Continue pantoprazole 40 mg daily for GERD Continue oxybutynin 10 mg daily for overactive bladder Continue levothyroxine 50 mcg daily for hypothyroid Continue gabapentin 4 mg 3 times a day for pain Continue Wellbutrin 150 mg twice daily for mood DNR Regular diet Heparin subcu daily POA/surrogate decision maker listed in patient's chart
[2024-04-04] MEDS: VANCOMYCIN CONSULT REQUEST 1 EACH NOTAPPLIC (16:54)
[2024-04-04] MEDS: VANCOMYCIN/WATER FOR INJ (PEG) 1.5 GM/300 ML PIGGYBACK IV (17:14)
[2024-04-04 17:16] LABS: Adenovirus,PCR Not Detected (NotDetected); Bordetella Pertussis Not Detected (NotDetected); Chlamydophila Pneumoniae, PCR Not Detected (NotDetected); Coronavirus 19, PCR Not Detected (NotDetected); Coronavirus 229E Not Detected (NotDetected); Coronavirus NL63 Not Detected (NotDetected); Coronavirus OC43 Not Detected (NotDetected); Coronovirus HKU1,PCR Not Detected (NotDetected); Human Metapneumovirus Not Detected (NotDetected); Influenza A, PCR Not Detected (NotDetected); Influenza AH1, 2009 Not Detected (NotDetected); Influenza AH1, PCR Not Detected (NotDetected); Influenza AH3,PCR Not Detected (NotDetected); Influenza B, PCR Not Detected (NotDetected); Mycoplasma Pneumoniae, PCR Not Detected (NotDetected); Parainfluenza 1, PCR Not Detected (NotDetected); Parainfluenza 2, PCR Not Detected (NotDetected); Parainfluenza 3, PCR Not Detected (NotDetected); Parainfluenza 4, PCR Not Detected (NotDetected); Respiratory Syncytial Virus Not Detected (NotDetected); Rhinovirus/Enterovirus Not Detected (NotDetected)
--- NOTE | 2024-04-04 20:53 | PC.NURSE ---
PATIENT GIVEN AEROSOL TREATMENTS PRODUCING NO SPUTUM AT THIS TIME
[2024-04-04] MEDS: ALPRAZolam 0.25MG TABLET 0.25 MG PO (21:15)
[2024-04-04] MEDS: GABAPENTIN 400MG CAPSULE 400 MG PO (21:15)
[2024-04-04] MEDS: QUETIAPINE 100MG TABLET 250 MG PO (21:15)
[2024-04-04] MEDS: PATIENT'S OWN HOME MEDICATION (Buspirone 7.5 mg tablet) 10 EACH PO (21:16)
[2024-04-04] MEDS: PIPERCILLIN/TAZO 3.375 GM in 0.9 % SODIUM CHLORIDE 50 ML IV (21:21)
[2024-04-05] VITALS (8 sets, daily range): BP systolic 110–130; BP diastolic 48–86; PULSE 67–101; RESP 17–18; TEMP 36.6–37.1; O2SAT 88–94; BMI 29.9
[2024-04-05] MEDS: PIPERCILLIN/TAZO 3.375 GM in 0.9 % SODIUM CHLORIDE 50 ML IV ×4 (03:00→20:23)
--- NOTE | 2024-04-05 06:31 | PC.NURSE ---
Pt is alert to name, birthday, and general area. Pt has rested throughout the night with no complaints. Incontinent of the brief. Remains on 4L NC, O2 sat >90%. Lung sounds wheezing. Bed alarm on. Call light in reach.
[2024-04-05 06:40] LABS: Basophils % 0.1 % (0.1-2.0); Hemoglobin 11.1 g/dL (12.2-16.2); Lymphocytes # 1.1 K/mm3 (0.7-4.5); Lymphocytes % 7.3 % (10-50); Mean Corpuscular HGB Conc 31.7 g/dL (31.8-35.4); Mean Corpuscular Hemoglobin 27.4 pg (27.0-31.2); Mean Corpuscular Volume 86.3 fl (81-99); Mean Platelet Volume 7.8 fl (7.4-10.4); Monocytes # 0.6 K/mm3 (0.1-1.0); Monocytes % 4.1 % (1.7-9.3); Neutrophils # 13.4 K/mm3 (1.8-7.8); Neutrophils % 88.5 % (37.0-80.0); Platelet Count 351 K/mm3 (142-424); Red Blood Count 4.05 M/mm3 (4.20-5.40); Red Cell Distribution Width 17.1 % (11.5-17.5); White Blood Count 15.2 K/mm3 (4.8-10.8)
[2024-04-05] MEDS: IPRATROPIUM/ALBUTEROL 3 ML NEB IH ×4 (06:41→23:21)
[2024-04-05 06:48] LABS: MANUAL DIFFERENTIAL MANUAL DIFFERENTIAL (MANUAL DIFF)
[2024-04-05 06:53] LABS: Alanine Aminotransferase 22 U/L (12-78); Albumin Level 3.7 g/dl (3.5-5.0); Albumin/Globulin Ratio 1.4 (1.1-1.8); Alkaline Phosphatase 63 U/L (38-126); Anion Gap 10.6 mEq/L (5-15); Aspartate Amino Transferase 27 U/L (14-36); Bilirubin,Total 0.4 mg/dl (0.2-1.3); Blood Urea Nitrogen 12 mg/dl (7-17); Calcium 9.4 mg/dl (8.4-10.2); Carbon Dioxide 31 mmol/L (22.0-30.0); Chloride 100 mmol/L (98-107); Creatinine Clearance Estimated 66 mL/min (50-200); Estimated Glomerular Filt Rate 98 ml/min (>60); GFR (African American) 118 ML/MIN (>60); Globulin 2.6 g/dL (1.3-3.2); Glucose 141 mg/dl (74-100); Magnesium 1.8 mg/dl (1.6-2.3); Potassium 3.6 mmoL/L (3.5-5.1); Sodium 138 mmol/L (136-145); Total Protein,Serum 6.3 g/dl (6.3-8.2)
[2024-04-05 08:16] LABS: Lymphocytes % 5 % (10-50); Monocytes % 2 % (2-9); Neutrophils % 93 % (42-76); Platelet Estimate Normal; RBC Morphology Normal; Total Cells Counted 100
[2024-04-05] MEDS: OXYBUTYNIN 5MG TAB 10 MG PO (08:59)
[2024-04-05] MEDS: ENOXAPARIN 40MG/0.4ML SYRINGE 40 MG SQ (08:59)
[2024-04-05] MEDS: LEVOTHYROXINE 50MCG (0.05MG) TAB 50 MCG PO (09:00)
[2024-04-05] MEDS: buPROPion HCl SR 150MG TAB 150 MG PO ×2 (09:00→20:23)
[2024-04-05] MEDS: GABAPENTIN 400MG CAPSULE 400 MG PO ×3 (09:00→20:23)
[2024-04-05] MEDS: ASPIRIN EC 81MG TABLET 81 MG PO (09:00)
[2024-04-05] MEDS: CITALOPRAM 40MG TABLET 40 MG PO (09:00)
[2024-04-05] MEDS: BUSPIRONE HCL 10 MG TABLET PO ×3 (09:00→20:23)
[2024-04-05] MEDS: PANTOPRAZOLE 40MG TABLET 40 MG PO (09:01)
[2024-04-05] MEDS: ALPRAZolam 0.25MG TABLET 0.25 MG PO ×3 (09:05→20:23)
--- NOTE | 2024-04-05 09:27 | EXP.PHA.CONS ---
Pharmacy Consult Date: 04/05/24 Time: 09:27 Referring provider: DR. RAIN Reason for Consult:: VANCOMYCIN DOSING Allergies Allergy/AdvReac Type Severity Reaction Status Date / Time metronidazole Allergy Unknown I-HIVES Verified 03/16/24 13:16 nitrofurantoin Allergy Unknown Unknown Verified 03/16/24 13:16 [From MACROBID] allergy reaction Home Medications Medication Instructions Recorded Confirmed Type albuterol sulfate 90 mcg/actuation 2 puff inhalation Q4HP PRN 10/15/22 04/04/24 Rx aerosol inhaler (ProAir HFA) Shortness Of Breath Or Wheezing #8.5 grams aspirin 81 mg tablet,delayed 81 mg PO DAILY Heart disease #90 10/15/22 04/04/24 Rx release tabs cholecalciferol (vitamin D3) 25 25 mcg PO DAILY Supplement #90 caps 10/15/22 04/04/24 Rx mcg (1,000 unit) capsule pravastatin 20 mg tablet 20 mg PO HS Cholesterol #90 tabs 10/15/22 04/04/24 Rx acetaminophen 500 mg tablet 500 mg PO TID 12/20/22 04/04/24 History levothyroxine 50 mcg tablet 50 mcg PO DAILY 03/28/23 04/04/24 History melatonin 3 mg tablet 3 mg PO HS 03/28/23 04/04/24 History pantoprazole 40 mg tablet,delayed 40 mg PO DAILY 03/28/23 04/04/24 History release quetiapine 100 mg tablet 250 mg PO HS 03/28/23 04/04/24 History bupropion HCl 150 mg tablet,12 hr 150 mg PO BID #60 ea 05/29/23 04/04/24 Rx sustained-release (Wellbutrin SR) metoclopramide HCl 5 mg tablet 5 mg PO TID #90 tabs 07/10/23 04/04/24 Rx (Reglan) cetirizine 10 mg tablet 10 mg PO DAILY 09/08/23 04/04/24 History oxybutynin chloride 5 mg tablet 10 mg PO DAILY 10/14/23 04/04/24 History trazodone 100 mg tablet 100 mg PO HS 10/14/23 04/04/24 History alprazolam 0.25 mg tablet 0.25 mg PO TID Anxiety #90 tabs 11/24/23 04/04/24 Rx gabapentin 400 mg capsule 400 mg PO TID Pain #90 caps 11/24/23 04/04/24 Rx dextromethorphan-guaifenesin 10 10 ml PO Q6H PRN Cough 11/28/23 04/04/24 History mg-100 mg/5 mL oral liquid guaifenesin 400 mg tablet 400 mg PO DAILY #120 tabs 11/28/23 04/04/24 Rx lactulose 10 gram/15 mL oral 30 ml PO DAILYP PRN Constipation 11/28/23 04/04/24 History solution multivitamin with minerals 1 cap PO DAILY 11/28/23 04/04/24 History sennosides 8.6 mg tablet (senna) 8.6 mg PO DAILY PRN Constipation 11/28/23 04/04/24 History escitalopram oxalate 20 mg tablet 20 mg PO DAILY 02/03/24 04/04/24 History (Lexapro) polyethylene glycol 3350 17 gram 17 g PO DAILY PRN Constipation 02/03/24 04/04/24 History oral powder packet prednisone 5 mg tablet 5 mg PO DAILY 02/04/24 04/04/24 History fluticasone fur. 100 mcg-umeclid 1 inh inhalation DAILY 30 days #1 02/06/24 04/04/24 Rx 62.5 mcg-vilant 25 mcg ea inhalat.powder (Trelegy Ellipta) ipratropium 0.5 mg-albuterol 3 mg 3 ml inhalation Q6H 02/16/24 04/04/24 History (2.5 mg base)/3 mL nebulization soln buspirone 7.5 mg tablet 10 mg PO TID 04/04/24 04/04/24 History New Prescriptions to Start Prescriptions: Height: 1.68 m Weight: 84.64 kg Laboratory Results:: Laboratory Results - last 24 hr 04/04/24 13:13: WBC 28.0 H*, RBC 4.37, Hgb 11.9 L, Hct 38.1, MCV 87.2, MCH 27.3, MCHC 31.4 L, RDW 16.9, Plt Count 353, MPV 7.5, Neut % (Auto) 87.3 H, Lymph % (Auto) 8.0 L, [place] % (Auto) 4.3, Eos % (Auto) 0.3, Baso % (Auto) 0.3, Neut # (Auto) 24.4 H, Lymph # (Auto) 2.2, [place] # (Auto) 1.2 H, Eos # (Auto) 0.1, Baso # (Auto) 0.1, Total Counted 100, Neutrophils % (Manual) 86 H, Lymphocytes % (Manual) 9 L, Monocytes % (Manual) 5, Platelet Estimate Normal, Hypochromasia 1+, Sodium 135 L, Potassium 4.3, Chloride 95 L, Carbon Dioxide 33 H, Anion Gap 11.3, BUN 9, Creatinine 0.60, Estimated Creat Clear 67, Estimated GFR 98, Est GFR ( Amer) 118, Glucose 129 H, Calcium 9.6, Total Bilirubin 0.3, AST 30, ALT 21, Alkaline Phosphatase 74, Total Protein 7.2, Albumin 4.1, Globulin 3.1, Albumin/Globulin Ratio 1.3 04/04/24 13:46: VBG pH 7.33, VBG pCO2 52.2 H, VBG pO2 46.3 H, VBG HCO3 27.0, VBG Total CO2 28.6 H, VBG O2 Saturation 79.1 H, VBG Base Excess 1.0, VBG Lactic Acid 1.7 04/04/24 13:50: Chlamy pneumoniae PCR Not detected, Adenovirus (PCR) Not detected, B. pertussis DNA (PCR) Not detected, Coronavirus OC43 (PCR) Not detected, Coronavirus HKU1 (PCR) Not detected, Coronavirus 229E (PCR) Not detected, SARS-CoV-2 (PCR) Not detected 04/04/24 13:50: SARS-CoV-2 (PCR) Not detected, Coronavirus NL63 (PCR) Not detected, Human Metapneumovir PCR Not detected, Influenza A (H1) PCR Not detected, Influ A (H1N1/09) PCR Not detected, Influenza A (H3) PCR Not detected, Influenza Type A (PCR) Not detected, Influenza A Untype (PCR) Not detected, Influenza Type B (PCR) Not detected 04/04/24 13:50: Influenza Type B (PCR) Not detected, M. pneumoniae (PCR) Not detected, Parainfluenza 1 (PCR) Not detected, Parainfluenza 2 (PCR) Not detected, Parainfluenza 3 (PCR) Not detected, Parainfluenza 4 (PCR) Not detected, RSV (PCR) Not detected, Entero/Rhino (PCR) Not detected 04/05/24 06:12: WBC 15.2 H D, RBC 4.05 L, Hgb 11.1 L, Hct 35.0 L, MCV 86.3, MCH 27.4, MCHC 31.7 L, RDW 17.1, Plt Count 351, MPV 7.8, Neut % (Auto) 88.5 H, Lymph % (Auto) 7.3 L, [place] % (Auto) 4.1, Eos % (Auto) 0.0 L, Baso % (Auto) 0.1, Neut # (Auto) 13.4 H, Lymph # (Auto) 1.1, [place] # (Auto) 0.6, Eos # (Auto) 0.0, Baso # (Auto) 0.0, Total Counted 100, Neutrophils % (Manual) 93 H, Lymphocytes % (Manual) 5 L, Monocytes % (Manual) 2, Platelet Estimate Normal, RBC Morphology Normal, Sodium 138, Potassium 3.6, Chloride 100, Carbon Dioxide 31 H, Anion Gap 10.6, BUN 12 D, Creatinine 0.60, Estimated Creat Clear 66, Estimated GFR 98, Est GFR ( Amer) 118, Glucose 141 H, Calcium 9.4, Magnesium 1.8, Total Bilirubin 0.4, AST 27, ALT 22, Alkaline Phosphatase 63, Total Protein 6.3, Albumin 3.7, Globulin 2.6, Albumin/Globulin Ratio 1.4 Medical History: Medical History (Updated 04/04/24 @ 18:05 by Frankie Rain MD) Sepsis Bronchiectasis History of smoking 30 or more pack years MRSA pneumonia Asthma Congenital diverticulum of esophagus Anxiety Essential hypertension Arthritis Diverticulosis History of falling History of dysuria History of cystitis Migraine Rheumatoid arthritis Intervertebral disc disorder Schizoaffective disorder Depression Dysphagia GERD (gastroesophageal reflux disease) Nicotine dependence Hx MRSA infection Atherosclerotic cardiovascular disease Hypothyroid Emphysema/COPD Hypertension Hyperlipidemia Pseudomonas urinary tract infection Gram-negative infection Lumbar radiculopathy Toe pain, left Breast nodule Lung nodule Closed head injury Fall Community acquired pneumonia Respiratory failure with hypoxia and hypercapnia Sepsis with acute organ dysfunction Community acquired bacterial pneumonia COPD exacerbation Aspiration pneumonia Esophageal diverticulum E. coli UTI (urinary tract infection) Hypokalemia SIRS (systemic inflammatory response syndrome) Cholelithiasis Colon, diverticulosis Emphysematous cystitis Abdominal pain UTI (urinary tract infection) Pneumonia Tobacco dependence Decreased mobility Urinary incontinence Low back pain radiating to both legs Obesity (BMI 30-39.9) COPD with acute exacerbation Staphylococcus aureus pneumonia Lung nodule seen on imaging study Acquired hypothyroidism Chronic low back pain Generalized anxiety disorder Cough Acute bronchitis RLL pneumonia Acute exacerbation of chronic obstructive airways disease Assessment and Plan Assessment and plan all Dx Assessment and Plan for all problems:: Pharmacokinetic dosing service Objective: Patient: Floor: Age: 73 yo Serum creatinine: 1 mg/dL Height: 66.1 Inches Weight (kg): 85 Assessment: IBW (kg): 59.53 Dosing wt(kg): 85 Estimated Creatinine clearance (ml/min): 46.4 CRCL method: Cockcroft and Gault using ibw(default). Drug selected: Vancomycin Loading dose (mg): 0 Vd (liters): 68.0 (factor used: 0.8 L/kg) Jb (hr-1): 0.043 Half life (hrs): 16.12 Recommended dose: 1500 mg Interval: 24 hrs Infusion time (hrs): 2.0 Predicted peak (mcg/mL): 32.8 Predicted trough (mcg/mL): 12.74 Total body weight is being used for vancomycin dosing. RECOMMENDATION: Give Vancomycin 1500 mg q 24 hrs with an expected Cpeak of 32.8 mcg/ml and an expected Ctrough of 12.74 mcg/ml ----Vanco only - ignore for aminoglycosides----- CLvanco= 2.92 L/hr AUC 0-24 /DEBORA Data: DEBORA 0.5 mcg/mL: AUC/DEBORA: 1027.4 DEBORA 1.0 mcg/mL: AUC/DEBORA: 513.7 --------- DEBORA 1.5 mcg/mL: AUC/DEBORA: 342.5 DEBORA 2.0 mcg/mL: AUC/DEBORA: 256.8
--- NOTE | 2024-04-05 13:01 | HMH.PTEV ---
Physical Therapy Evaluation Rehab PT IP Evaluation Start: 04/04/24 15:57 Freq: ONCE Status: Active Protocol: Document 04/05/24 12:56 PAULINO (Rec: 04/05/24 13:01 [email or web address] [id number]) Subjective/History History History 73 yowf adm to [facility] with COPD exac and possible PNA. She lives at SNF at baseline and reports she is generally not very mobile and only walks a little bit with a walker. She has PMH of COPD on 3 L oxygen at baseline, hypothyroidism, diverticulosis, hypertension, GERD, hyperlipidemia. Subjective Subjective Pt presents awake, supine in bed, NC O2 on at all times. She agrees to mobility assessment, but appears mildly confused which is her baseline. New diagnosis of cancer in past 12 No months? Rehab PT IP Eval Objective Appearance Patient Behavior Appropriate Patient Orientation Person,Place Difficulty following instructions mild Speech Pattern Clear Ambulation Patient Able to Ambulate Yes Ambulation Observation IP General Gait Pattern Observation Wide Based Gait,Shuffling Step Ambulation Distance (feet) 3 Ambulation Assistive Device Rolling Walker Ambulation Ability Moderate x 1 (50% assist) Balance Ability to Arise Able, uses arms to help Sitting Balance Leans or slides in chair Standing Balance Steady, wide stance Dynamic Sitting Balance Ability Fair Dynamic Standing Balance Ability Poor Transfers Bed Transfer Ability Moderate x 1 (50% assist) Chair Transfer Ability Moderate x 1 (50% assist) Sit to Stand Bed Transfer Ability Moderate x 1 (50% assist) Sit to Stand Chair Transfer Ability Moderate x 1 (50% assist) ROM All Extremities PT ROM Status WFL Rehab PT IP prob,goals,plan Problems Date of Evaluation: 04/05/24 PT IP Problems Bed Mobility,Transfers,Gait Rehab Potential Rehab Potential Good Plan PT Intervention Plan Bed Mobility,Transfers,Gait, Therapeutic Exercise PT Plan Frequency Daily Duration LOS Discharge Goals Bed Transfer Ability Minimal x 1 (25% assist) Sit to Stand Chair Transfer Ability Minimal x 1 (25% assist) Ambulation Distance (feet) 10 Discharge Plan PT Discharge Plan Pt is currently most appropriate to return to SNF once medically stable for d/c. Skilled therapy is indicated to prevent further debility, falls, injury, or wounds, and assist pt in returning to prior level of function. Eval Complexity Eval Charge Codes 54090 - High Complexity PHYSICIAN CERTIFICATION: I certify the specified therapy services for Naida Sommer are required, authorized, and reviewed every 30 days.
[2024-04-05] MEDS: VANCOMYCIN/WATER FOR INJ (PEG) 1.5 GM/300 ML PIGGYBACK IV (13:42)
--- NOTE | 2024-04-05 16:09 | P.PN_ITS ---
Subjective *Date: 04/05/24 *Time: 16:12 Interval history: Continues to require 4 L. More alert today. Asking to go back to her half-way. Denies chest pain, nausea, vomiting. White cell count improving but patient not stable for discharge yet. Continues to require inpatient management with IV antibiotics. Still above baseline oxygen. Cough on exam this morning. Afebrile overnight. Medical Exam Vital signs and Labs for Last 24 Hours: Vital Signs Temp Pulse Pulse Resp BP BP Pulse Ox 04/05/24 15:43 98.7 F 74 18 129/55 L 92 L 04/05/24 15:00 04/05/24 13:19 98 H 04/05/24 13:19 101 H 04/05/24 13:19 88 L 04/05/24 13:00 04/05/24 11:00 04/05/24 09:00 04/05/24 08:00 04/05/24 07:43 98.4 F 82 18 130/69 92 L 04/05/24 06:56 04/05/24 06:42 88 04/05/24 06:42 87 04/05/24 06:42 90 L 04/05/24 05:00 04/05/24 04:35 97.9 F 70 17 110/48 L 90 L 04/05/24 02:39 04/05/24 01:05 04/04/24 23:50 76 04/04/24 23:49 77 04/04/24 22:57 04/04/24 21:00 04/04/24 20:00 04/04/24 20:00 97.8 F 71 17 119/67 91 L 04/04/24 18:34 77 04/04/24 18:33 04/04/24 18:30 04/04/24 17:00 04/04/24 16:54 04/04/24 16:46 98.1 F 77 20 146/66 H 92 L 04/04/24 16:27 97.8 F 79 22 130/66 O2 Del Method O2 Flow Rate 04/05/24 15:43 Nasal Cannula 4 04/05/24 15:00 Nasal Cannula 2 04/05/24 13:19 04/05/24 13:19 04/05/24 13:19 Nasal Cannula 4 04/05/24 13:00 Nasal Cannula 4 04/05/24 11:00 Room Air 04/05/24 09:00 Nasal Cannula 4 04/05/24 08:00 Nasal Cannula 4 04/05/24 07:43 Nasal Cannula 4 04/05/24 06:56 Nasal Cannula 4 04/05/24 06:42 04/05/24 06:42 04/05/24 06:42 Nasal Cannula 4 04/05/24 05:00 Nasal Cannula 4 04/05/24 04:35 Nasal Cannula 4 04/05/24 02:39 Nasal Cannula 4 04/05/24 01:05 Nasal Cannula 4 04/04/24 23:50 04/04/24 23:49 04/04/24 22:57 Nasal Cannula 4 04/04/24 21:00 Nasal Cannula 4 04/04/24 20:00 Nasal Cannula 4 04/04/24 20:00 Nasal Cannula 4 04/04/24 18:34 04/04/24 18:33 Nasal Cannula 4 04/04/24 18:30 Nasal Cannula 4 04/04/24 17:00 Nasal Cannula 4 04/04/24 16:54 Nasal Cannula 4 04/04/24 16:46 Nasal Cannula 4 04/04/24 16:27 Nasal Cannula Intake and Output 04/05/24 04/05/24 04/05/24 07:59 15:59 23:59 Intake Total 470 / 710 240 / 710 Output Total 0 / 0 Balance 470 / 710 240 / 710 Intake: Intake, Oral Amount 270 / 510 240 / 510 Intake, Total IV Amount 200 / 200 Pipercillin/Tazo 3.375 gm In 0. 200 / 200 9 % Sodium Chloride 50 ml @ 100 mls/hr IV Q6H [facility] Rx#: [id number] Output: Output, Urine Amount 0 / 0 Other: Number of Unmeasured Voids 1 Weight 84.64 kg 84.64 kg Patient Weight 04/05/24 23:59 Weight 84.64 kg Laboratory Results - last 24 hr 04/04/24 13:50: Chlamy pneumoniae PCR Not detected, Adenovirus (PCR) Not detected, B. pertussis DNA (PCR) Not detected, Coronavirus OC43 (PCR) Not detected, Coronavirus HKU1 (PCR) Not detected, Coronavirus 229E (PCR) Not detected, SARS-CoV-2 (PCR) Not detected, Coronavirus NL63 (PCR) Not detected, Human Metapneumovir PCR Not detected, Influenza A (H1) PCR Not detected, Influ A (H1N1/09) PCR Not detected, Influenza A (H3) PCR Not detected, Influenza Type A (PCR) Not detected, Influenza Type B (PCR) Not detected, M. pneumoniae (PCR) Not detected, Parainfluenza 1 (PCR) Not detected, Parainfluenza 2 (PCR) Not detecte d, Parainfluenza 3 (PCR) Not detected, Parainfluenza 4 (PCR) Not detected, RSV (PCR) Not detected, Entero/Rhino (PCR) Not detected 04/05/24 06:12: WBC 15.2 H D, RBC 4.05 L, Hgb 11.1 L, Hct 35.0 L, MCV 86.3, MCH 27.4, MCHC 31.7 L, RDW 17.1, Plt Count 351, MPV 7.8, Neut % (Auto) 88.5 H, Lymph % (Auto) 7.3 L, Gar[place] % (Auto) 4.1, Eos % (Auto) 0.0 L, Baso % (Auto) 0.1, Neut # (Auto) 13.4 H, Lymph # (Auto) 1.1, Gar[place] # (Auto) 0.6, Eos # (Auto) 0.0, Baso # (Auto) 0.0, Total Counted 100, Neutrophils % (Manual) 93 H, Lymphocytes % (Manual) 5 L, Monocytes % (Manual) 2, Platelet Estimate Normal, RBC Morphology Normal, Sodium 138, Potassium 3.6, Chloride 100, Carbon Dioxide 31 H, Anion Gap 10.6, BUN 12 D, Creatinine 0.60, Estimated Creat Clear 66, Estimated GFR 98, Est GFR ( Amer) 118, Glucose 141 H, Calcium 9.4, Magnesium 1.8, Total Bilirubin 0.4, AST 27, ALT 22, Alkaline Phosphatase 63, Total Protein 6.3, Albumin 3.7, Globulin 2.6, Albumin/Globulin Ratio 1.4 I & O for Labs for Last 24 Hours: Intake & Output 04/02/24 04/03/24 04/04/24 04/05/24 23:59 23:59 23:59 23:59 Intake Total 710 / 710 Output Total 0 / 0 0 / 0 Balance 0 / 200 710 / 710 Weight 84.141 kg 84.64 kg Microbiology Reports for the Last 24 Hours: Microbiology 04/04/24 15:09 Blood Blood Culture - Preliminary NO GROWTH AFTER 24 HOURS 04/04/24 15:12 Blood Blood Culture - Preliminary NO GROWTH AFTER 24 HOURS Constitutional: Present no acute distress, average body habitus, chronically ill appearing and cooperative Head: Present atraumatic and normocephalic ENT: Present normal exam Respiratory: Present rhonchi, crackles and normal respiratory effort; Absent accessory muscle use or wheezes Cardiac: Present Reg Rate and Rhythm GI: Present soft and normal bowel sounds; Absent distention or tenderness Extremities: Present edema (Trace bilaterally lower leg) Skin: Present intact; Absent erythema Neuro: Present Grossly Intact, alert, awake and moves all extremities Assessment and Plan *Assessment and plan (1) Sepsis: Status: Acute Qualifiers: Sepsis acute organ dysfunction status: without acute organ dysfunction Sepsis type: sepsis due to unspecified organism Qualified Code(s): A41.9 - Sepsis, unspecified organism Category: Medical Code(s): A41.9 - Sepsis, unspecified organism (2) Pneumonia: Status: Acute Qualifiers: Laterality: bilateral Lung location: lower lobe of lung Pneumonia type: due to unspecified organism Qualified Code(s): J18.9 - Pneumonia, unspecified organism Category: Medical Code(s): J18.9 - Pneumonia, unspecified organism (3) Acute and chronic respiratory failure: Status: Resolved Category: Medical Code(s): J96.20 - Acute and chronic respiratory failure, unspecified whether with hypoxia or hypercapnia (4) COPD (chronic obstructive pulmonary disease): Status: Chronic Qualifiers: COPD type: unspecified COPD Qualified Code(s): J44.9 - Chronic obstructive pulmonary disease, unspecified Category: Medical Code(s): J44.9 - Chronic obstructive pulmonary disease, unspecified (5) Anxiety disorder: Status: Chronic Qualifiers: Anxiety disorder type: unspecified anxiety disorder Qualified Code(s): F41.9 - Anxiety disorder, unspecified Category: Medical Code(s): F41.9 - Anxiety disorder, unspecified (6) Hypothyroidism: Status: Chronic Qualifiers: Hypothyroidism type: unspecified Qualified Code(s): E03.9 - Hypothyroidism, unspecified Category: Medical Code(s): E03.9 - Hypothyroidism, unspecified (7) Schizophrenia: Status: Chronic Qualifiers: Schizophrenia type: unspecified Qualified Code(s): F20.9 - Schizophrenia, unspecified Category: Medical Code(s): F20.9 - Schizophrenia, unspecified (8) Hyperlipidemia: Status: Chronic Qualifiers: Hyperlipidemia type: unspecified Qualified Code(s): E78.5 - Hyperlipidemia, unspecified Category: Medical Code(s): E78.5 - Hyperlipidemia, unspecified (9) Depression: Status: Chronic Qualifiers: Depression Type: unspecified Qualified Code(s): F32.A - Depression, unspecified Category: Medical Code(s): F32.A - Depression, unspecified (10) Tobacco dependence: Status: Chronic Category: Medical Code(s): F17.200 - Nicotine dependence, unspecified, uncomplicated (11) History of smoking 30 or more pack years: Status: Chronic Category: Social Hx Code(s): Z87.891 - Personal history of nicotine dependence Plan 73-year-old female who resides at a [facility] who presents with acute on chronic hypoxemic respiratory failure secondary to pneumonia. Meeting sepsis criteria with leukocytosis, tachycardia, tachypnea. Chest imaging in the ER with right-sided pneumonia. Discussed case with ER physician, request admission for IV antibiotics and further management of sepsis. Medicine agreed to admit. Patient's PSI/port score is 104 because of her age, female sex, half-way resident, pH less than 7.35 (7.33). Given her class IV risk, hospitalization appropriate. Necessitating inpatient management. Continue IV antibiotics. Anticipate discharge in the next day or 2. Continue to wean oxygen as tolerated. Continues to require inpatient management. Problems addressed as follows: Sepsis Acute on chronic hypoxemic respiratory failure Pneumonia -Continue vancomycin given previous history of MRSA, drug therapy necessitating close monitoring -Continue Zosyn 3.375 g every 6 hours IV -Continue DuoNebs every 6 hours scheduled -Continue supplemental oxygen, currently on 4 L, goal saturation greater than 90%; baseline oxygen requirement 3 L -Sputum culture pending, MRSA swab pending -Comprehensive respiratory panel negative -White count 28 K on admission, improved to 15.2 today. Repeat CBC, CMP, magnesium ordered for the morning -Kidney function normal with BUN of 12, creatinine 0.6. Magnesium 1.8, potassium 3.6 Continue buspirone 7.5 mg 3 times a day for mood Continue Lexapro 20 mg daily for depression Continue MiraLAX daily as needed for constipation Continue alprazolam 0.25 mg 3 times a day for anxiety Continue aspirin 81 mg daily for CAD Holding trazodone 100 mg nightly Continue Seroquel 250 mg nightly for mood and sleep Continue pantoprazole 40 mg daily for GERD Continue oxybutynin 10 mg daily for overactive bladder Continue levothyroxine 50 mcg daily for hypothyroid Continue gabapentin 4 mg 3 times a day for pain Continue Wellbutrin 150 mg twice daily for mood DNR Regular diet Heparin subcu daily POA/surrogate decision maker listed in patient's chart
--- NOTE | 2024-04-05 18:13 | PC.NURSE ---
no issues this todays. pt alert to self only and has been asking where is the baby/ is there a dog out there t/o shift. changed diet to chapped meat, tolerating well. sitting up in bed. cb within reach
[2024-04-05] MEDS: MELATONIN 5MG TABLET 5 MG PO (20:23)
[2024-04-05] MEDS: QUETIAPINE 100MG TABLET 200 MG PO (20:23)
[2024-04-05] MEDS: QUETIAPINE 25MG TABLET 50 MG PO (20:23)
[2024-04-06] MEDS: PIPERCILLIN/TAZO 3.375 GM in 0.9 % SODIUM CHLORIDE 50 ML IV ×2 (03:44→08:14)
[2024-04-06 04:00] VITALS: BP 145/71; PULSE 63; RESP 20; TEMP 36.6; O2SAT 94; BMI 29.9
--- NOTE | 2024-04-06 05:05 | PC.NURSE ---
Pt is alert to self. Rested throughout the night. 3L NC, O2 sat >90%. Lung sounds clear. Incontinent of the brief. Bed alarm on. Call light in reach.
[2024-04-06] MEDS: IPRATROPIUM/ALBUTEROL 3 ML NEB IH ×2 (06:14→10:50)
[2024-04-06 06:15] VITALS: PULSE 64; PULSE 65; O2SAT 93
[2024-04-06] MEDS: FLUTICASONE/UMECLIDIN/VILANTER 100/62.5/25MCG INHALER 1 PUFF IH (06:15)
[2024-04-06 06:36] LABS: Basophils # 0.1 K/mm3 (0-0.2); Basophils % 0.3 % (0.1-2.0); Eosinophils # 0.1 K/mm3 (0.0-0.4); Eosinophils % 0.5 % (0.1-12.0); Hematocrit 34.8 % (37.0-47.0); Hemoglobin 10.8 g/dL (12.2-16.2); Lymphocytes # 2.2 K/mm3 (0.7-4.5); Lymphocytes % 16.5 % (10-50); Mean Corpuscular HGB Conc 31.1 g/dL (31.8-35.4); Mean Corpuscular Hemoglobin 27.3 pg (27.0-31.2); Mean Corpuscular Volume 87.5 fl (81-99); Mean Platelet Volume 7.7 fl (7.4-10.4); Monocytes # 0.9 K/mm3 (0.1-1.0); Neutrophils # 10.2 K/mm3 (1.8-7.8); Neutrophils % 75.6 % (37.0-80.0); Platelet Count 352 K/mm3 (142-424); Red Blood Count 3.98 M/mm3 (4.20-5.40); Red Cell Distribution Width 17.3 % (11.5-17.5); White Blood Count 13.4 K/mm3 (4.8-10.8)
[2024-04-06 06:39] LABS: Alanine Aminotransferase 18 U/L (12-78); Albumin Level 3.4 g/dl (3.5-5.0); Albumin/Globulin Ratio 1.3 (1.1-1.8); Alkaline Phosphatase 60 U/L (38-126); Anion Gap 8.4 mEq/L (5-15); Aspartate Amino Transferase 22 U/L (14-36); Bilirubin,Total 0.2 mg/dl (0.2-1.3); Blood Urea Nitrogen 13 mg/dl (7-17); Calcium 8.7 mg/dl (8.4-10.2); Carbon Dioxide 32 mmol/L (22.0-30.0); Chloride 103 mmol/L (98-107); Creatinine Clearance Estimated 66 mL/min (50-200); Estimated Glomerular Filt Rate 82 ml/min (>60); GFR (African American) 99 ML/MIN (>60); Globulin 2.6 g/dL (1.3-3.2); Glucose 104 mg/dl (74-100); Magnesium 1.9 mg/dl (1.6-2.3); Potassium 3.4 mmoL/L (3.5-5.1); Sodium 140 mmol/L (136-145)
[2024-04-06] MEDS: LEVOTHYROXINE 50MCG (0.05MG) TAB 50 MCG PO (06:55)
--- NOTE | 2024-04-06 07:21 | SW/DCPLANNER ---
Addendum entered by Dinorah Reardon 04/06/24 11:12: I have updated Sania that patient will return ICF level of care today. Original Note: This patient currently resides at [facility] ICF level of care. Updated patient information has been faxed. I will continue to follow up w/ Sania at [facility] until patient is ready for discharge. Discharge date is unknown at this time.
[2024-04-06] MEDS: ASPIRIN EC 81MG TABLET 81 MG PO (07:44)
[2024-04-06] MEDS: PANTOPRAZOLE 40MG TABLET 40 MG PO (07:44)
[2024-04-06] MEDS: CITALOPRAM 40MG TABLET 40 MG PO (07:44)
[2024-04-06] MEDS: BUSPIRONE HCL 10 MG TABLET PO (07:44)
[2024-04-06] MEDS: ENOXAPARIN 40MG/0.4ML SYRINGE 40 MG SQ (07:44)
[2024-04-06] MEDS: OXYBUTYNIN 5MG TAB 10 MG PO (07:44)
[2024-04-06] MEDS: GABAPENTIN 400MG CAPSULE 400 MG PO (07:44)
[2024-04-06] MEDS: buPROPion HCl SR 150MG TAB 150 MG PO (07:45)
[2024-04-06 07:46] VITALS: BP 139/64; PULSE 76; RESP 18; TEMP 36.5; O2SAT 92
[2024-04-06] MEDS: ALPRAZolam 0.25MG TABLET 0.25 MG PO (07:46)
--- NOTE | 2024-04-06 09:54 | HMH.OTEV ---
OT Inpatient Evaluation Rehab OT IP Evaluation Start: 04/04/24 15:57 Freq: ONCE Status: Active Protocol: Document 04/06/24 09:48 RMARSHALL (Rec: 04/06/24 09:53 RMARSHALL Laptop) Rehab OT IP Assessment Subjective History 73 yowf adm to [facility] with COPD exac and possible PNA. She lives at SNF at baseline and reports she is generally not very mobile and only walks a little bit with a walker. She has PMH of COPD on 3 L oxygen at baseline, hypothyroidism, diverticulosis, hypertension, GERD, hyperlipidemia. Subjective Pt presents awake, supine in bed, NC O2 on at all times. She agrees to assessment, but appears mildly confused which is her baseline. According to history, pt was living at SNF requiring assistance with all ADLs. Objective Patient Orientation Person,Place,Time Right Upper Extremity Gross ROM Min Limitation <25% Left Upper Extremity Gross ROM Min Limitation <25% Shoulder ROM Limitations Muscle Weakness Elbow ROM Limitations Muscle Weakness Wrist Limitations of Range of Motion Muscle Weakness Bed Mobility bed mobility-scooting,bed mobility - supine/sit,bed mobility - rolling Assist Level Minimal x 1 (25% assist) Transfer Training Sit/Stand Transfer Assist Level Moderate x 2 (50% assist) Chair Transfer Ability Moderate x 2 (50% assist) Chair Transfer Technique Stand Step Pivot Rehab OT IP prob,goals,plan Problems Date of Evaluation: 04/06/24 OT IP Problems Bed Mobility,Transfers,Balance ,Self care,Safety Rehab Potential Rehab Potential Good Equipment Needs Assistive Devices Rolling / Wheeled Walker Plan OT intervention Plan Bed Mobility,Transfers,Balance ,Self care,Safety,Therapeutic Exercise OT Plan Frequency Daily Duration LOS Discharge Goals Bed Mobility Ability Standby Assistance,Assistance x1 Sit to Stand Chair Transfer Ability Minimal x 1 (25% assist) Chair Transfer Ability Minimal x 1 (25% assist) Chair Transfer Technique Stand Step Pivot Chair Transfer Assistive Devices Rolling Walker Lower Body Dressing Ability Moderate Assistance Upper Body Dressing Ability Minimal Assistance Bathing Ability Moderate Assistance Performing Toilet Hygiene Ability Minimal Assistance Overall Commode/Toilet Transfer Ability Minimal Assistance Commode/Toilet Transfer Technique Sit to/from Ambulatory Commode/Toilet Transfer Assistive Grab Bars Devices Oral Care Assist Standby Assistance Decrease in Endurance Yes Discharge Plan OT Discharge Plan Pt is currently most appropriate to return to SNF once medically stable for d/c. Skilled therapy is indicated to prevent further debility, falls, injury, or wounds, and assist pt in returning to prior level of function. Eval Complexity Eval Charge Codes 20885 - Moderate Complexity PHYSICIAN CERTIFICATION: I certify the specified therapy services for Naida Sommer are required, authorized, and reviewed every 30 days.
[2024-04-06 10:50] VITALS: PULSE 76; PULSE 77; PULSE 82; RESP 18
[2024-04-06] MEDS: SODIUM CHLORIDE 3% 15ML NEB 3 ML IH (10:50)
--- NOTE | 2024-04-06 11:16 | EXP.DC.SUM ---
General Admission date:: 04/04/24 Discharge date: 04/06/24 HPI HPI HPI: Ms. Sommer is a 73-year-old female with history of COPD on 3 L oxygen at baseline. Also has hypothyroidism, diverticulosis, hypertension, GERD, hyperlipidemia. She resides at [facility]. She presented to the ER via EMS because of worsening shortness of breath and fatigue. Patient states she has been having a cough and feeling more weak and ill for the past 4 to 5 days. On arrival her O2 sat was 88% on her baseline 3 L. On arrival she was treated with antibiotics, steroids, DuoNebs. Workup concerning for sepsis as she was tachycardic, tachypneic, leukocytosis of 28,000, and chest imaging showing right-sided pneumonia. Medicine was consulted for admission. On arrival to the floor, patient appears quite fatigued. Able to interact and answer basic questions. Denies any chest pain, nausea, vomiting, diarrhea. Complains of symptoms for 5 days. Complains of significant weakness. Denies any fever. Hospital Course Hospital Course Hospital Course: 73-year-old female who resides at a [facility] who presents with acute on chronic hypoxemic respiratory failure secondary to pneumonia. Meeting sepsis criteria with leukocytosis, tachycardia, tachypnea. Chest imaging in the ER with right-sided pneumonia. Discussed case with ER physician, request admission for IV antibiotics and further management of sepsis. Medicine agreed to admit. Patient's PSI/port score is 104 because of her age, female sex, care home resident, pH less than 7.35 (7.33). Given her class IV risk, hospitalization appropriate. Necessitating inpatient management. Continue IV antibiotics. Anticipate discharge in the next day or 2. Continue to wean oxygen as tolerated. Continues to require inpatient management. Patient was treated for PNA during hospital course, patient was positive for MRSA screen as well, patient improved on antiobtics, patient was evaluated by outsole caser for needs as well, patient will be discharged in stable condition, patient was discharged on levaquin and doxycycline. Total time spent. 37 mins patient seen and evaluated on the day of discharge. Patient informed about following up with appointments. Patient verbalized understanding for follow-up appointments. The patient and / or the family were informed of the results of tests, a time was given to answer questions, a plan was proposed and they agreed with plan. Medical reconciliation performed. Patient discharged stable condition. Exam Data for Last 24 hours Vital signs and Labs for Last 24 Hours: Temp Pulse Resp BP Pulse Ox O2 Del Method O2 Flow Rate 97.7 F 77 18 139/64 92 L Nasal Cannula 3 04/06/24 07:46 04/06/24 10:50 04/06/24 10:50 04/06/24 07:46 04/06/24 07:46 04/06/24 09:59 04/06/24 09:59 Laboratory Results - last 24 hr 04/06/24 06:01: WBC 13.4 H, RBC 3.98 L, Hgb 10.8 L, Hct 34.8 L, MCV 87.5, MCH 27.3, MCHC 31.1 L, RDW 17.3, Plt Count 352, MPV 7.7, Neut % (Auto) 75.6, Lymph % (Auto) 16.5, [place] % (Auto) 7.0, Eos % (Auto) 0.5, Baso % (Auto) 0.3, Neut # (Auto) 10.2 H, Lymph # (Auto) 2.2, [place] # (Auto) 0.9, Eos # (Auto) 0.1, Baso # (Auto) 0.1, Sodium 140, Potassium 3.4 L, Chloride 103, Carbon Dioxide 32 H, Anion Gap 8.4, BUN 13, Creatinine 0.70, Estimated Creat Clear 66, Estimated GFR 82, Est GFR ( Amer) 99, Glucose 104 H D, Calcium 8.7, Magnesium 1.9, Total Bilirubin 0.2, AST 22, ALT 18, Alkaline Phosphatase 60, Total Protein 6.0 L, Albumin 3.4 L, Globulin 2.6, Albumin/Globulin Ratio 1.3 I & O for Last 24 hours: Intake & Output 04/03/24 04/04/24 04/05/24 04/06/24 23:59 23:59 23:59 23:59 Intake Total 1220 / 1370 560 / 560 Output Total 0 / 0 0 / 0 0 / 0 Balance 0 / 200 1220 / 1370 560 / 560 Weight 84.141 kg 84.64 kg 84.66 kg Microbiology Reports for the Last 24 Hours: Microbiology 04/04/24 16:48 Nose MRSA Culture - Final 04/04/24 15:09 Blood Blood Culture - Preliminary NO GROWTH AFTER 24 HOURS 04/04/24 15:12 Blood Blood Culture - Preliminary NO GROWTH AFTER 24 HOURS Constitutional Constitutional: no acute distress *Routine HEENT Exam Head: Present normocephalic Eye: Present EOMI and PERRL ENT: Present mucous membranes moist *Routine Neck Exam Neck: Present supple; Absent lymphadenopathy *Routine Respiratory Exam Respiratory: Present CTA bilaterally *Routine Cardiovascular Exam Cardiovascular: Present RRR *Routine Abdominal Exam Abdominal: Present soft and normoactive bowel sounds; Absent tenderness *Routine Extremities Exam Extremities: Absent cyanosis, clubbing or edema *Routine Skin Exam Skin: Present warm; Absent rash *Routine Neurological Exam Neurological: Present alert and oriented X3 Results Data Completed and Pending Labs on day of discharge: Labs from last 24 hours 04/06/24 06:01 WBC 13.4 H RBC 3.98 L Hgb 10.8 L Hct 34.8 L MCV 87.5 MCH 27.3 MCHC 31.1 L RDW 17.3 Plt Count 352 MPV 7.7 Neut % (Auto) 75.6 Lymph % (Auto) 16.5 [place] % (Auto) 7.0 Eos % (Auto) 0.5 Baso % (Auto) 0.3 Neut # (Auto) 10.2 H Lymph # (Auto) 2.2 [place] # (Auto) 0.9 Eos # (Auto) 0.1 Baso # (Auto) 0.1 Sodium 140 Potassium 3.4 L Chloride 103 Carbon Dioxide 32 H Anion Gap 8.4 BUN 13 Creatinine 0.70 Estimated Creat Clear 66 Estimated GFR 82 Est GFR ( Amer) 99 Glucose 104 H D Calcium 8.7 Magnesium 1.9 Total Bilirubin 0.2 AST 22 ALT 18 Alkaline Phosphatase 60 Total Protein 6.0 L Albumin 3.4 L Globulin 2.6 Albumin/Globulin Ratio 1.3 Preliminary micro results at discharge 04/04/24 15:09 Blood Culture - Preliminary Blood NO GROWTH AFTER 24 HOURS 04/04/24 15:12 Blood Culture - Preliminary Blood NO GROWTH AFTER 24 HOURS DS: Diagnosis Discharge Diagnosis (1) Sepsis: Status: Acute Code(s): A41.9 - Sepsis, unspecified organism Qualifiers: Sepsis acute organ dysfunction status: without acute organ dysfunction Sepsis type: sepsis due to unspecified organism Qualified Code(s): A41.9 - Sepsis, unspecified organism (2) Pneumonia: Status: Acute Code(s): J18.9 - Pneumonia, unspecified organism Qualifiers: Laterality: bilateral Lung location: lower lobe of lung Pneumonia type: due to unspecified organism Qualified Code(s): J18.9 - Pneumonia, unspecified organism (3) Acute and chronic respiratory failure: Status: Resolved Code(s): J96.20 - Acute and chronic respiratory failure, unspecified whether with hypoxia or hypercapnia (4) COPD (chronic obstructive pulmonary disease): Status: Chronic Code(s): J44.9 - Chronic obstructive pulmonary disease, unspecified Qualifiers: COPD type: unspecified COPD Qualified Code(s): J44.9 - Chronic obstructive pulmonary disease, unspecified (5) Anxiety disorder: Status: Chronic Code(s): F41.9 - Anxiety disorder, unspecified Qualifiers: Anxiety disorder type: unspecified anxiety disorder Qualified Code(s): F41.9 - Anxiety disorder, unspecified (6) Hypothyroidism: Status: Chronic Code(s): E03.9 - Hypothyroidism, unspecified Qualifiers: Hypothyroidism type: unspecified Qualified Code(s): E03.9 - Hypothyroidism, unspecified (7) Schizophrenia: Status: Chronic Code(s): F20.9 - Schizophrenia, unspecified Qualifiers: Schizophrenia type: unspecified Qualified Code(s): F20.9 - Schizophrenia, unspecified (8) Hyperlipidemia: Status: Chronic Code(s): E78.5 - Hyperlipidemia, unspecified Qualifiers: Hyperlipidemia type: unspecified Qualified Code(s): E78.5 - Hyperlipidemia, unspecified (9) Depression: Status: Chronic Code(s): F32.A - Depression, unspecified Qualifiers: Depression Type: unspecified Qualified Code(s): F32.A - Depression, unspecified (10) Tobacco dependence: Status: Chronic Code(s): F17.200 - Nicotine dependence, unspecified, uncomplicated (11) History of smoking 30 or more pack years: Status: Chronic Code(s): Z87.891 - Personal history of nicotine dependence Meds Home Medications and Allergies Home Medications Medication Instructions Recorded Confirmed Type albuterol sulfate 90 mcg/actuation 2 puff inhalation Q4HP PRN 10/15/22 04/04/24 Rx aerosol inhaler (ProAir HFA) Shortness Of Breath Or Wheezing #8.5 grams aspirin 81 mg tablet,delayed 81 mg PO DAILY Heart disease #90 10/15/22 04/04/24 Rx release tabs cholecalciferol (vitamin D3) 25 25 mcg PO DAILY Supplement #90 caps 10/15/22 04/04/24 Rx mcg (1,000 unit) capsule pravastatin 20 mg tablet 20 mg PO HS Cholesterol #90 tabs 10/15/22 04/04/24 Rx acetaminophen 500 mg tablet 500 mg PO TID 12/20/22 04/04/24 History levothyroxine 50 mcg tablet 50 mcg PO DAILY 03/28/23 04/04/24 History melatonin 3 mg tablet 3 mg PO HS 03/28/23 04/04/24 History pantoprazole 40 mg tablet,delayed 40 mg PO DAILY 03/28/23 04/04/24 History release bupropion HCl 150 mg tablet,12 hr 150 mg PO BID #60 ea 05/29/23 04/04/24 Rx sustained-release (Wellbutrin SR) metoclopramide HCl 5 mg tablet 5 mg PO TID #90 tabs 07/10/23 04/04/24 Rx (Reglan) cetirizine 10 mg tablet 10 mg PO DAILY 09/08/23 04/04/24 History oxybutynin chloride 5 mg tablet 10 mg PO DAILY 10/14/23 04/04/24 History trazodone 100 mg tablet 100 mg PO HS 10/14/23 04/04/24 History alprazolam 0.25 mg tablet 0.25 mg PO TID Anxiety #90 tabs 11/24/23 04/04/24 Rx gabapentin 400 mg capsule 400 mg PO TID Pain #90 caps 11/24/23 04/04/24 Rx dextromethorphan-guaifenesin 10 10 ml PO Q6HP PRN Cough 11/28/23 04/05/24 History mg-100 mg/5 mL oral liquid guaifenesin 400 mg tablet 400 mg PO DAILY #120 tabs 11/28/23 04/04/24 Rx lactulose 10 gram/15 mL oral 30 ml PO DAILYP PRN Constipation 11/28/23 04/04/24 History solution multivitamin with minerals 1 cap PO DAILY 11/28/23 04/04/24 History sennosides 8.6 mg tablet (senna) 17.2 mg PO DAILY Constipation 11/28/23 04/05/24 History escitalopram oxalate 20 mg tablet 20 mg PO DAILY 02/03/24 04/04/24 History (Lexapro) polyethylene glycol 3350 17 gram 17 g PO DAILY Constipation 02/03/24 04/04/24 History oral powder packet prednisone 5 mg tablet 5 mg PO DAILY 02/04/24 04/04/24 History fluticasone fur. 100 mcg-umeclid 1 inh inhalation DAILY 30 days #1 02/06/24 04/04/24 Rx 62.5 mcg-vilant 25 mcg ea inhalat.powder (Trelegy Ellipta) ipratropium 0.5 mg-albuterol 3 mg 3 ml inhalation Q6H 02/16/24 04/04/24 History (2.5 mg base)/3 mL nebulization soln buspirone 10 mg tablet 10 mg PO TID 04/05/24 04/05/24 History quetiapine 200 mg tablet (Seroquel) 200 mg PO HS 04/05/24 04/05/24 History quetiapine 50 mg tablet (Seroquel) 50 mg PO HS 04/05/24 04/05/24 History sodium phosphates 19 gram-7 118 ml [place] DAILYP PRN Constipation 04/05/24 04/05/24 History gram/118 mL enema (Fleet Enema) doxycycline monohydrate 100 mg 100 mg PO BID 5 days #10 caps 04/06/24 Rx capsule levofloxacin 750 mg tablet 750 mg PO DAILY 5 days #5 tabs 04/06/24 Rx New Prescriptions to Start Prescriptions: doxycycline monohydrate Hubert Shah levofloxacin Hubert Shah Allergies Allergy/AdvReac Type Severity Reaction Status Date / Time metronidazole Allergy Unknown I-HIVES Verified 03/16/24 13:16 nitrofurantoin Allergy Unknown Unknown Verified 03/16/24 13:16 [From MACROBID] allergy reaction Discharge Plan Disposition Patient Disposition: Xfer SNF Condition: Good Discharge Order Discharge Orders: Discharge Order (Routine); Ordered 04/06/24 Ordered By: Hubert Shah Follow up Plan Follow up with: Daniel Day MD [Primary Care Provider] - Enter time for follow up (Will round at the care home. ) Prescriptions/Medication Reconciliation: New doxycycline monohydrate 100 mg capsule 100 mg PO BID 5 Days Qty: 10 0RF levofloxacin 750 mg tablet 750 mg PO DAILY 5 Days Qty: 5 0RF Continued bupropion HCl [Wellbutrin SR] 150 mg tablet sustained-release 12 hr 150 mg PO BID Qty: 60 2RF metoclopramide HCl [Reglan] 5 mg tablet 5 mg PO TID Qty: 90 3RF Rx Instructions: administer 30 minutes before meals alprazolam 0.25 mg tablet 0.25 mg PO TID Qty: 90 3RF gabapentin 400 mg capsule 400 mg PO TID Qty: 90 3RF guaifenesin 400 mg tablet 400 mg PO DAILY Qty: 120 0RF lactulose 10 gram/15 mL solution 30 ml PO DAILYP PRN (Reason: Constipation) multivitamin with minerals Capsule 1 cap PO DAILY dextromethorphan-guaifenesin 10-100 mg/5 mL liquid 10 ml PO Q6HP PRN (Reason: Cough) sennosides [senna] 8.6 mg tablet 17.2 mg PO DAILY aspirin 81 mg tablet,delayed release (DR/EC) 81 mg PO DAILY Qty: 90 0RF pravastatin 20 mg tablet 20 mg PO HS Qty: 90 0RF albuterol sulfate [ProAir HFA] 90 mcg/actuation HFA aerosol inhaler 2 puff inhalation Q4HP PRN (Reason: Shortness Of Breath Or Wheezing) Qty: 8.5 0RF cholecalciferol (vitamin D3) 25 mcg (1,000 unit) capsule 25 mcg PO DAILY Qty: 90 0RF melatonin 3 mg Tablet 3 mg PO HS levothyroxine 50 mcg tablet 50 mcg PO DAILY pantoprazole 40 MG tablet,delayed release (DR/EC) 40 mg PO DAILY cetirizine 10 mg Tablet 10 mg PO DAILY buspirone 10 mg tablet 10 mg PO TID quetiapine [Seroquel] 200 mg Tablet 200 mg PO HS Fleet Enema 19-7 gram/118 mL Enema 118 ml [place] DAILYP PRN (Reason: Constipation) quetiapine [Seroquel] 50 mg Tablet 50 mg PO HS acetaminophen 500 mg Tablet 500 mg PO TID oxybutynin chloride 5 mg tablet 10 mg PO DAILY trazodone 100 mg Tablet 100 mg PO HS escitalopram oxalate [Lexapro] 20 mg Tablet 20 mg PO DAILY polyethylene glycol 3350 17 gram Powder In Packet 17 g PO DAILY prednisone 5 mg Tablet 5 mg PO DAILY Trelegy Ellipta 100-62.5-25 mcg Blister With Device 1 inh inhalation DAILY 30 Days Qty: 1 0RF ipratropium-albuterol 0.5 mg-3 mg(2.5 mg base)/3 mL solution for nebulization 3 ml INHALATION Q6H Other Ambulatory Orders: Home Medical Equipment (Routine) Location: None Selected Ordered By: Hubert Shah Problem Reconciliation Problems Reviewed?: Yes Patient Discharge Instructions ACTIVITY: Ambulate as tolerated DIET: continue same diet Patient Instructions: Pneumonia-Adult, DI for Chronic Obstructive Pulmonary Disease, DI for Pneumonia -- Adult Providers Primary Care Provider: Daniel Day Admit Provider: Frankie Foley Attending Provider: Frankie Foley
--- NOTE | 2024-04-06 11:43 | PC.NURSE ---
report called to Hayley GOULD at [facility].. iv removed.
== END 2024-04-06 12:55 | DRG 871 ==
LOC: ER 14:01 → 2ND 16:08
PROVIDERS: Admitting Provider Internal Medicine Adolescent Medicine; Emergency Provider Emergency Medicine; PCP Family Medicine; Visit Provider Internal Medicine Adolescent Medicine
DX: A41.9 Sepsis, unspecified organism (principal); J18.9 Pneumonia, unspecified organism; J96.21 Acute and chronic respiratory failure with hypoxia; J44.0 Chronic obstructive pulmonary disease with (acute) lower respiratory infection; E03.9 Hypothyroidism, unspecified; F20.9 Schizophrenia, unspecified; E78.5 Hyperlipidemia, unspecified; F32.A Depression, unspecified; Z87.891 Personal history of nicotine dependence; Z66 Do not resuscitate; Z99.81 Dependence on supplemental oxygen; K21.9 Gastro-esophageal reflux disease without esophagitis; M06.9 Rheumatoid arthritis, unspecified; I25.10 Atherosclerotic heart disease of native coronary artery without angina pectoris; F41.1 Generalized anxiety disorder; G89.29 Other chronic pain; M54.50 Low back pain, unspecified
CPT/HCPCS: 36415; 71045; 80053; 82803; 83735; 85007; 85025; 87040; 87081; 87581; 87632; 87635; 87636; 87798; 94640; 94760; 94761; 97163; 97166; 97530; 99285; J2543

== ENCOUNTER 2024-04-22 10:39 | Outpatient (CLI) | payer MEDICARE, MEDICAID, SELFPAY ==
--- NOTE | 2024-04-22 10:45 | XR_ITS ---
FINAL REPORT CLINICAL HISTORY: right hip fx COMPARISON: 02/19/2024 FINDINGS: RIGHT HIP Two views of the right hip demonstrate right hip arthroplasty. There are mild degenerative changes in the left hip. There is no acute fracture. The visualized bony structures are well aligned. No soft tissue abnormality is seen. IMPRESSION: Degenerative changes without acute bony abnormality. Right hip arthroplasty with intact hardware. Reviewed, Interpreted and Dictated by Luis Billingsley III, MD Transcribed by Yancy Weeks Authenticated and [facility]
== END 2024-04-22 23:59 | disposition home or self-care (01) ==
LOC: RAD 10:41
PROVIDERS: PCP Family Medicine; Visit Provider Orthopaedic Surgery
DX: Z96.641 Presence of right artificial hip joint (principal)
CPT/HCPCS: 73502

== ENCOUNTER 2024-05-26 12:59 | Emergency (ER) | payer MEDICARE, MEDICAID, SELFPAY ==
[2024-05-26 12:59] VITALS: BP 154/87; PULSE 73; RESP 18; TEMP 36.6; O2SAT 94; BMI 37.5
--- NOTE | 2024-05-26 13:07 | HMH.EDGENADL ---
Discharge Plan Disposition Patient Disposition: Xfer SNF Condition: Good Prescriptions Prescriptions: No Action bupropion HCl [Wellbutrin SR] 150 mg tablet sustained-release 12 hr 150 mg PO BID Qty: 60 2RF metoclopramide HCl [Reglan] 5 mg tablet 5 mg PO TID Qty: 90 3RF Rx Instructions: administer 30 minutes before meals alprazolam 0.25 mg tablet 0.25 mg PO TID Qty: 90 3RF guaifenesin 400 mg tablet 400 mg PO DAILY Qty: 120 0RF lactulose 10 gram/15 mL solution 30 ml PO DAILYP PRN (Reason: Constipation) multivitamin with minerals Capsule 1 cap PO DAILY sennosides [senna] 8.6 mg tablet 17.2 mg PO DAILY gabapentin 400 mg capsule 400 mg PO TID Qty: 90 3RF aspirin 81 mg tablet,delayed release (DR/EC) 81 mg PO DAILY Qty: 90 0RF pravastatin 20 mg tablet 20 mg PO HS Qty: 90 0RF albuterol sulfate [ProAir HFA] 90 mcg/actuation HFA aerosol inhaler 2 puff inhalation Q4HP PRN (Reason: Shortness Of Breath Or Wheezing) Qty: 8.5 0RF cholecalciferol (vitamin D3) 25 mcg (1,000 unit) capsule 25 mcg PO DAILY Qty: 90 0RF melatonin 3 mg Tablet 3 mg PO HS levothyroxine 50 mcg tablet 50 mcg PO DAILY pantoprazole 40 MG tablet,delayed release (DR/EC) 40 mg PO DAILY cetirizine 10 mg Tablet 10 mg PO DAILY buspirone 10 mg tablet 10 mg PO TID quetiapine [Seroquel] 200 mg Tablet 200 mg PO HS Fleet Enema 19-7 gram/118 mL Enema 118 ml MN DAILYP PRN (Reason: Constipation) quetiapine [Seroquel] 50 mg Tablet 50 mg PO HS levofloxacin 750 mg tablet 750 mg PO DAILY 5 Days Qty: 5 0RF acetaminophen 500 mg Tablet 500 mg PO TID oxybutynin chloride 5 mg tablet 10 mg PO DAILY trazodone 100 mg Tablet 100 mg PO HS escitalopram oxalate [Lexapro] 20 mg Tablet 20 mg PO DAILY polyethylene glycol 3350 17 gram Powder In Packet 17 g PO DAILY prednisone 5 mg Tablet 5 mg PO DAILY Trelegy Ellipta 100-62.5-25 mcg Blister With Device 1 inh inhalation DAILY 30 Days Qty: 1 0RF ipratropium-albuterol 0.5 mg-3 mg(2.5 mg base)/3 mL solution for nebulization 3 ml INHALATION Q6H Referrals Follow up/Referrals: Provider,Referral, [Primary Care Provider] - See instructions Activity Restrictions/Add. Instructions Additional Instructions/Restrictions: Thankfully your x-rays did not show any broken bones, your CT scans did not show any bleeding in your head or broken bones of your neck. Please return with any new or worsening symptoms. Clinical Impressions Clinical Impression: CHI (closed head injury) Discharge ED Provider: [facility] Adult HPI General Chief complaint: Fall Stated complaint: fall Time Seen by Provider: 05/26/24 13:07 Mode of Arrival: EMS Source of Information: Patient and EMS Limitations: No Limitations Description of Symptoms (Recalled from ER Triage Doc. by RN): Per EMS patient had an unwitnessed fall today and is complaining of bilateral hip pain. Denies LOC or hitting her head. Patient states she slid out of the bed onto the floor. History of Present Illness HPI narrative: The patient presents with a chief complaint after experiencing a fall. She reports pain in the right leg and head. She has a history of surgery on the right hip, which occurred several years ago. She denies any pain in the shoulders, arms, or back. She also reports pain in the left leg, but it is unclear if this is related to the fall. Additionally, she is experiencing pain in the hip area. Denies any abdominal pain, chest pain, abrasions, back pain, pain elsewhere. She was in her normal state of health prior to this fall. She denies any syncope or presyncope. She reports mis-stepping and subsequently falling onto the right side of her body. She is normally wheelchair-bound. No reported blood thinner usage. Please note that above description of symptoms, in this electronic medical record under categorization of recalled from ER triage doctor by RN are reflective of an initial nursing assessment, however, is not reflective of my full history and physical exam that was personally taken and clarified. Consequentially, this preceding description of symptoms, which may include the patient's categorized chief complaint in the EMR, do not reflect my personal clinical impression, and the ultimate description of history of present illness and patient stated complaints should be deferred to this section of the note. Unless stated otherwise or congruent with this section of the note, additional signs, symptoms, or incongruence should be interpreted as inaccurate with my clinical impression. Related Data Home Medications Medication Instructions Recorded Confirmed acetaminophen 500 mg tablet 500 mg PO TID 12/20/22 05/18/24 levothyroxine 50 mcg tablet 50 mcg PO DAILY 03/28/23 05/18/24 melatonin 3 mg tablet 3 mg PO HS 03/28/23 05/18/24 pantoprazole 40 mg tablet,delayed 40 mg PO DAILY 03/28/23 05/18/24 release cetirizine 10 mg tablet 10 mg PO DAILY 09/08/23 05/18/24 oxybutynin chloride 5 mg tablet 10 mg PO DAILY 10/14/23 05/18/24 trazodone 100 mg tablet 100 mg PO HS 10/14/23 05/18/24 lactulose 10 gram/15 mL oral 30 ml PO DAILYP PRN Constipation 11/28/23 05/18/24 solution multivitamin with minerals 1 cap PO DAILY 11/28/23 05/18/24 sennosides 8.6 mg tablet (senna) 17.2 mg PO DAILY Constipation 11/28/23 05/18/24 escitalopram oxalate 20 mg tablet 20 mg PO DAILY 02/03/24 05/18/24 (Lexapro) polyethylene glycol 3350 17 gram 17 g PO DAILY Constipation 02/03/24 05/18/24 oral powder packet prednisone 5 mg tablet 5 mg PO DAILY 02/04/24 05/18/24 ipratropium 0.5 mg-albuterol 3 mg 3 ml inhalation Q6H 02/16/24 05/18/24 (2.5 mg base)/3 mL nebulization soln buspirone 10 mg tablet 10 mg PO TID 04/05/24 05/18/24 quetiapine 200 mg tablet (Seroquel) 200 mg PO HS 04/05/24 05/18/24 quetiapine 50 mg tablet (Seroquel) 50 mg PO HS 04/05/24 05/18/24 sodium phosphates 19 gram-7 118 ml MN DAILYP PRN Constipation 04/05/24 05/18/24 gram/118 mL enema (Fleet Enema) Previous Rx's Medication Instructions Recorded albuterol sulfate 90 mcg/actuation 2 puff inhalation Q4HP PRN 10/15/22 aerosol inhaler (ProAir HFA) Shortness Of Breath Or Wheezing #8.5 grams aspirin 81 mg tablet,delayed 81 mg PO DAILY Heart disease #90 10/15/22 release tabs cholecalciferol (vitamin D3) 25 25 mcg PO DAILY Supplement #90 caps 10/15/22 mcg (1,000 unit) capsule pravastatin 20 mg tablet 20 mg PO HS Cholesterol #90 tabs 10/15/22 bupropion HCl 150 mg tablet,12 hr 150 mg PO BID #60 ea 05/29/23 sustained-release (Wellbutrin SR) metoclopramide HCl 5 mg tablet 5 mg PO TID #90 tabs 07/10/23 (Reglan) alprazolam 0.25 mg tablet 0.25 mg PO TID Anxiety #90 tabs 11/24/23 guaifenesin 400 mg tablet 400 mg PO DAILY #120 tabs 11/28/23 fluticasone fur. 100 mcg-umeclid 1 inh inhalation DAILY 30 days #1 02/06/24 62.5 mcg-vilant 25 mcg ea inhalat.powder (Trelegy Ellipta) levofloxacin 750 mg tablet 750 mg PO DAILY 5 days #5 tabs 04/06/24 gabapentin 400 mg capsule 400 mg PO TID Pain #90 caps 04/08/24 Allergies Allergy/AdvReac Type Severity Reaction Status Date / Time metronidazole Allergy Unknown I-HIVES Verified 05/18/24 10:50 nitrofurantoin Allergy Unknown Unknown Verified 05/18/24 10:50 [From MACROBID] allergy reaction [facility] Disclaimer: The information contained in this section may have been updated after the patient was seen, as this information can be updated by other users. Medical History Sepsis Bronchiectasis History of smoking 30 or more pack years MRSA pneumonia Asthma Congenital diverticulum of esophagus Anxiety Essential hypertension Arthritis Diverticulosis History of falling History of dysuria History of cystitis Migraine Rheumatoid arthritis Intervertebral disc disorder Schizoaffective disorder Depression Dysphagia GERD (gastroesophageal reflux disease) Nicotine dependence Hx MRSA infection Atherosclerotic cardiovascular disease Hypothyroid Emphysema/COPD Hypertension Hyperlipidemia Pseudomonas urinary tract infection Gram-negative infection Lumbar radiculopathy Toe pain, left Breast nodule Lung nodule Closed head injury Fall Community acquired pneumonia Respiratory failure with hypoxia and hypercapnia Sepsis with acute organ dysfunction Community acquired bacterial pneumonia COPD exacerbation Aspiration pneumonia Esophageal diverticulum E. coli UTI (urinary tract infection) Hypokalemia SIRS (systemic inflammatory response syndrome) Cholelithiasis Colon, diverticulosis Emphysematous cystitis Abdominal pain UTI (urinary tract infection) Pneumonia Tobacco dependence Decreased mobility Urinary incontinence Low back pain radiating to both legs Obesity (BMI 30-39.9) COPD with acute exacerbation Staphylococcus aureus pneumonia Lung nodule seen on imaging study Acquired hypothyroidism Chronic low back pain Generalized anxiety disorder Cough Acute bronchitis RLL pneumonia Acute exacerbation of chronic obstructive airways disease Surgical History H/O: hysterectomy Family History Other Family history of cancer Social History Smoking Status: Unknown if ever smoked second hand exposure: Yes alcohol intake: former substance use type: denies use current occupational status: retired Travel in the last 8 weeks: None household members: family housing: custodial diet: low salt caffeine: Yes ROS Obtained: Yes other As per HPI Physical Exam General General appearance: alert and in no apparent distress Head Head exam: atraumatic and normocephalic Eye Eye exam: Present normal appearance Neck Neck exam: Present normal inspection Chest Chest inspection: Present normal inspection and symmetric chest wall rise Respiratory Respiratory exam: Present normal lung sounds bilaterally; Absent respiratory distress Cardiovascular Cardiovascular exam: Present regular rate and normal rhythm Abdominal Exam Abdominal exam: Present soft Neurological Exam Neurological exam: Present alert and oriented X3 Psychiatric Psychiatric exam: Present normal affect and normal mood Skin Skin exam: Present warm and dry Other Other exam information: Mild tenderness to palpation of bilateral knees, right hip, occipital scalp tenderness to palpation, no ecchymosis, no deformity, distally neurovascularly intact in bilateral upper and lower extremities. Reported chronic generalized weakness. Medical Decision Making Medical Records Medical records reviewed: Yes I reviewed the patient's medical records. Alex Inquiry Pt receiving controlled substance: No Vital Signs: 05/26/24 12:59 05/26/24 13:30 05/26/24 14:30 Temperature 97.9 F Temperature Source Oral Pulse Rate 69 64 Pulse Rate [Radial] 73 Respiratory Rate 18 Blood Pressure 190/95 H 186/86 H Blood Pressure [Right Arm] 154/87 H Blood Pressure Mean [Right Arm] 109 Blood Pressure Source Blood Pressure Source [Right Arm] Automatic Cuff Blood Pressure Position Blood Pressure Position [Right Arm] Sitting 02 Sat by Pulse Oximetry 94 L 95 96 Oxygen Delivery Method Nasal Cannula Oxygen Flow Rate (LPM) 3 05/26/24 15:00 05/26/24 17:26 Temperature 98.0 F Temperature Source Oral Pulse Rate 62 62 Pulse Rate [Radial] Respiratory Rate 16 Blood Pressure 198/88 H 198/88 H Blood Pressure [Right Arm] Blood Pressure Mean [Right Arm] Blood Pressure Source Automatic Cuff Blood Pressure Source [Right Arm] Blood Pressure Position Sitting Blood Pressure Position [Right Arm] 02 Sat by Pulse Oximetry 96 Oxygen Delivery Method Nasal Cannula Oxygen Flow Rate (LPM) 3 Orders (Tests/Meds): ORDERS Category Date Time Status CT cervical spine wo con Stat Cat Scan 05/26/24 13:[address] head/brain wo con Stat Cat Scan 05/26/24 13:19 Completed Knee XR left 2 views [XR knee LT 2V] Stat Exams 05/26/24 13:19 Completed XR femur RT 2V Stat Exams 05/26/24 13:19 Completed XR hip RT 2-3V w/pelvis Stat Exams 05/26/24 13:19 Completed XR knee RT 3V Stat Exams 05/26/24 13:19 Completed Medical Decision Narrative: Patient with history and exam per above presenting for evaluation of fall Diagnoses considered include fracture, intracranial hemorrhage, cervical spinal injury, no clinical evidence to suggest vascular injury, nerve injury, preceding illness, syncopal episode ED workup and treatment included: ORDERS Category Date Time Status CT cervical spine wo con Stat Cat Scan 05/26/24 13:[address] head/brain wo con Stat Cat Scan 05/26/24 13:19 Completed Knee XR left 2 views [XR knee LT 2V] Stat Exams 05/26/24 13:19 Completed XR femur RT 2V Stat Exams 05/26/24 13:19 Completed XR hip RT 2-3V w/pelvis Stat Exams 05/26/24 13:19 Completed XR knee RT 3V Stat Exams 05/26/24 13:19 Completed Imaging was independently visualized and interpreted by me, significant for no acute findings Please refer to radiology report for full details. My clinical impression at this time is most consistent with soft tissue injury. Patient denies any pain upon repeat evaluation. I discussed my clinical impression with patient and answered all questions. At this time, the evidence for any other entities in the differential is insufficient to warrant any further testing or ED observation. This was explained to the patient. The patient was advised that persistent or worsening symptoms require further evaluation. I confirmed the patient's understanding of this discussion. Critical Care Critical Care Time Critical Care Time: No
--- NOTE | 2024-05-26 13:19 | XR_ITS ---
FINAL REPORT CLINICAL HISTORY: pain after fall from standing COMPARISON: 02/19/2024 FINDINGS: AP and frog leg views of the right hip were obtained. There are changes from right hip arthroplasty. There is no acute fracture or dislocation. There is degenerative disease of the left hip. Soft tissues are within normal limits. IMPRESSION: No acute osseous abnormality of the right hip. If pain persists, MR is recommended. Reviewed, Interpreted and Dictated by Daly Levy MD Transcribed by Yancy Weeks Authenticated and . [facility]
--- NOTE | 2024-05-26 13:19 | XR_ITS ---
FINAL REPORT CLINICAL HISTORY: pain after fall from standing COMPARISON: None FINDINGS: Two views of the left knee were obtained. There is no acute fracture or dislocation. The joint spaces are intact. There is no soft tissue abnormality. IMPRESSION: No acute osseous abnormality. Reviewed, Interpreted and Dictated by Daly Levy MD Transcribed by Yancy Weeks Authenticated and [facility]
--- NOTE | 2024-05-26 13:19 | XR_ITS ---
FINAL REPORT CLINICAL HISTORY: pain after fall from standing COMPARISON: None FINDINGS: Two views of the right femur were obtained. There are changes from right hip arthroplasty. There is no acute fracture of the right femur. The hip is intact. The joint spaces are well preserved. There is no acute soft tissue abnormality. IMPRESSION: No acute abnormality identified. Reviewed, Interpreted and Dictated by Daly Levy MD Transcribed by Yancy Weeks Authenticated and [facility]
--- NOTE | 2024-05-26 13:19 | CT_ITS ---
FINAL REPORT TECHNIQUE: Thin section axial images were obtained through the cervical spine without contrast. Multiplanar reconstruction images were obtained from the axial data. Exam was performed using dose reduction techniques. CLINICAL HISTORY: fall, headache COMPARISON: 10/13/2023 FINDINGS: There is no acute fracture or acute malalignment of the cervical spine. There is no evidence of unilateral or bilateral facet lock. Vertebral body height is preserved. There is multilevel degenerative disc disease, most pronounced at C6-7. Findings are unchanged from previous. No acute paraspinal abnormality is identified. IMPRESSION: Stable degenerative disc disease. Reviewed, Interpreted and Dictated by Daly Levy MD Transcribed by Analia Escobar Authenticated and [facility]
--- NOTE | 2024-05-26 13:19 | CT_ITS ---
FINAL REPORT TECHNIQUE: Thin section axial images were obtained from skull base to vertex without contrast. Coronal reconstruction images were obtained from the axial data. Exam was performed using dose reduction technique. CLINICAL HISTORY: fall, headache COMPARISON: 02/14/2024 FINDINGS: There is age-appropriate atrophy. There is no mass effect or midline shift. There is no intracranial hemorrhage. There is no hydrocephalus. Periventricular low density is likely related to changes of chronic small vessel ischemia. The basilar cisterns are preserved. The posterior fossa is without acute abnormality. The soft tissues are without acute abnormality. No acute osseous abnormality is identified. IMPRESSION: No acute intracranial abnormality. Atrophy and changes suggesting chronic small vessel ischemia. Reviewed, Interpreted and Dictated by Daly Levy MD Transcribed by Analia Escobar Authenticated and [facility]
--- NOTE | 2024-05-26 13:19 | XR_ITS ---
FINAL REPORT CLINICAL HISTORY: pain after fall from standing FINDINGS: AP, lateral and oblique views of the right knee were obtained. There is no prior exam for comparison. There is no acute osseous abnormality of the right knee. The joint space is preserved. The soft tissues are normal. There is no joint effusion. IMPRESSION: No acute osseous abnormality of the right knee. Reviewed, Interpreted and Dictated by Daly Levy MD Transcribed by Yancy Weeks Authenticated and [facility]
[2024-05-26 13:30] VITALS: BP 190/95; PULSE 69; O2SAT 95
--- NOTE | 2024-05-26 13:34 | PC.NURSE ---
patient gone to CT at this time.
[2024-05-26 14:30] VITALS: BP 186/86; PULSE 64; O2SAT 96
[2024-05-26 15:00] VITALS: BP 198/88; PULSE 62; O2SAT 96
[2024-05-26 17:26] VITALS: BP 198/88; PULSE 62; RESP 16; TEMP 36.7; O2SAT 100
--- NOTE | 2024-05-26 17:26 | PC.NURSE ---
Report called to Sandra at [facility].
== END 2024-05-26 17:27 ==
PROVIDERS: Emergency Provider Emergency Medicine
DX: S09.90XA Unspecified injury of head, initial encounter (principal); M79.604 Pain in right leg; W18.30XA Fall on same level, unspecified, initial encounter
CPT/HCPCS: 70450; 72125; 73502; 73552; 73560; 73562; 99285

== ENCOUNTER 2024-05-30 20:01 | Emergency (ER) | payer MEDICARE, MEDICAID, SELFPAY ==
--- NOTE | 2024-05-30 19:54 | PC.NURSE ---
Report from [facility] for 73 F from [facility] that slipped from her bed down into the floor who now c/o back pain. Patient has chronic back pain. Wears 4l/nc and saturations wnl for her baseline at 93%-94%. A/o x3. No other injury
[2024-05-30 20:01] VITALS: BP 187/78; PULSE 89; RESP 22; TEMP 36.6; O2SAT 94; BMI 22.7
--- NOTE | 2024-05-30 20:26 | HMH.EDGENADL ---
Discharge Plan Disposition Patient Disposition: Xfer Short-Term Hosp Condition: Fair Prescriptions Prescriptions: No Action bupropion HCl [Wellbutrin SR] 150 mg tablet sustained-release 12 hr 150 mg PO BID Qty: 60 2RF metoclopramide HCl [Reglan] 5 mg tablet 5 mg PO TID Qty: 90 3RF Rx Instructions: administer 30 minutes before meals alprazolam 0.25 mg tablet 0.25 mg PO TID Qty: 90 3RF guaifenesin 400 mg tablet 400 mg PO DAILY Qty: 120 0RF lactulose 10 gram/15 mL solution 30 ml PO DAILYP PRN (Reason: Constipation) multivitamin with minerals Capsule 1 cap PO DAILY sennosides [senna] 8.6 mg tablet 17.2 mg PO DAILY gabapentin 400 mg capsule 400 mg PO TID Qty: 90 3RF aspirin 81 mg tablet,delayed release (DR/EC) 81 mg PO DAILY Qty: 90 0RF pravastatin 20 mg tablet 20 mg PO HS Qty: 90 0RF albuterol sulfate [ProAir HFA] 90 mcg/actuation HFA aerosol inhaler 2 puff inhalation Q4HP PRN (Reason: Shortness Of Breath Or Wheezing) Qty: 8.5 0RF cholecalciferol (vitamin D3) 25 mcg (1,000 unit) capsule 25 mcg PO DAILY Qty: 90 0RF melatonin 3 mg Tablet 3 mg PO HS levothyroxine 50 mcg tablet 50 mcg PO DAILY pantoprazole 40 MG tablet,delayed release (DR/EC) 40 mg PO DAILY cetirizine 10 mg Tablet 10 mg PO DAILY buspirone 10 mg tablet 10 mg PO TID quetiapine [Seroquel] 200 mg Tablet 200 mg PO HS Fleet Enema 19-7 gram/118 mL Enema 118 ml [place] DAILYP PRN (Reason: Constipation) quetiapine [Seroquel] 50 mg Tablet 50 mg PO HS levofloxacin 750 mg tablet 750 mg PO DAILY 5 Days Qty: 5 0RF acetaminophen 500 mg Tablet 500 mg PO TID oxybutynin chloride 5 mg tablet 10 mg PO DAILY trazodone 100 mg Tablet 100 mg PO HS escitalopram oxalate [Lexapro] 20 mg Tablet 20 mg PO DAILY polyethylene glycol 3350 17 gram Powder In Packet 17 g PO DAILY prednisone 5 mg Tablet 5 mg PO DAILY Trelegy Ellipta 100-62.5-25 mcg Blister With Device 1 inh inhalation DAILY 30 Days Qty: 1 0RF ipratropium-albuterol 0.5 mg-3 mg(2.5 mg base)/3 mL solution for nebulization 3 ml INHALATION Q6H Clinical Impressions Clinical Impression: Femoral neck fracture Qualifiers: Encounter type: initial encounter Fracture type: closed Laterality: left Qualified Code(s): S72.002A - Fracture of unspecified part of neck of left femur, initial encounter for closed fracture Thoracic spine fracture Qualifiers: Encounter type: initial encounter Thoracic vertebra fracture level: T2 Closed fracture of sixth thoracic vertebra Qualifiers: Encounter type: initial encounter Fracture morphology: unspecified fracture morphology Qualified Code(s): S22.059A - Unspecified fracture of T5-T6 vertebra, initial encounter for closed fracture Fracture of lumbar spine Qualifiers: Encounter type: initial encounter Lumbar vertebra fracture level: L2 Fracture type: closed Instructions Patient Instructions: DI for Low Back Pain Discharge ED Provider: Doug Sanchez General Adult HPI <MAYRA Baltazar - Last Filed: 05/30/24 23:09> General Chief complaint: Fall Stated complaint: fall from bed Time Seen by Provider: 05/30/24 20:25 History of Present Illness HPI narrative: Patient presents after an accidental fall. Patient was attempting to transition from her bed to her wheelchair but had forgotten to lock the wheelchair wheels and it slid away from her causing her to land on the ground. She did not strike her head. She did not lose consciousness. She did feel pain across her lumbar and thoracic spine patient does report that she has a headache but that predated her fall and she has been having intermittent headaches for quite some times which is not a new problem for her. Currently she denies chest pain fever chills hemoptysis hematochezia melena nausea vomiting or diarrhea and only complains of pain in her back. Related Data Home Medications Medication Instructions Recorded Confirmed acetaminophen 500 mg tablet 500 mg PO TID 12/20/22 05/18/24 levothyroxine 50 mcg tablet 50 mcg PO DAILY 03/28/23 05/18/24 melatonin 3 mg tablet 3 mg PO HS 03/28/23 05/18/24 pantoprazole 40 mg tablet,delayed 40 mg PO DAILY 03/28/23 05/18/24 release cetirizine 10 mg tablet 10 mg PO DAILY 10/30/23 07/09/24 oxybutynin chloride 5 mg tablet 10 mg PO DAILY 10/14/23 05/18/24 trazodone 100 mg tablet 100 mg PO HS 10/14/23 05/18/24 lactulose 10 gram/15 mL oral 30 ml PO DAILYP PRN Constipation 11/28/23 05/18/24 solution multivitamin with minerals 1 cap PO DAILY 11/28/23 05/18/24 sennosides 8.6 mg tablet (senna) 17.2 mg PO DAILY Constipation 11/28/23 05/18/24 escitalopram oxalate 20 mg tablet 20 mg PO DAILY 02/03/24 05/18/24 (Lexapro) polyethylene glycol 3350 17 gram 17 g PO DAILY Constipation 02/03/24 05/18/24 oral powder packet prednisone 5 mg tablet 5 mg PO DAILY 02/04/24 05/18/24 ipratropium 0.5 mg-albuterol 3 mg 3 ml inhalation Q6H 02/16/24 05/18/24 (2.5 mg base)/3 mL nebulization soln buspirone 10 mg tablet 10 mg PO TID 04/05/24 05/18/24 quetiapine 200 mg tablet (Seroquel) 200 mg PO HS 04/05/24 05/18/24 quetiapine 50 mg tablet (Seroquel) 50 mg PO HS 04/05/24 05/18/24 sodium phosphates 19 gram-7 118 ml NH DAILYP PRN Constipation 04/05/24 05/18/24 gram/118 mL enema (Fleet Enema) Previous Rx's Medication Instructions Recorded albuterol sulfate 90 mcg/actuation 2 puff inhalation Q4HP PRN 10/15/22 aerosol inhaler (ProAir HFA) Shortness Of Breath Or Wheezing #8.5 grams aspirin 81 mg tablet,delayed 81 mg PO DAILY Heart disease #90 10/15/22 release tabs cholecalciferol (vitamin D3) 25 25 mcg PO DAILY Supplement #90 caps 10/15/22 mcg (1,000 unit) capsule pravastatin 20 mg tablet 20 mg PO HS Cholesterol #90 tabs 10/15/22 bupropion HCl 150 mg tablet,12 hr 150 mg PO BID #60 ea 07/20/23 sustained-release (Wellbutrin SR) metoclopramide HCl 5 mg tablet 5 mg PO TID #90 tabs 07/10/23 (Reglan) alprazolam 0.25 mg tablet 0.25 mg PO TID Anxiety #90 tabs 11/24/23 guaifenesin 400 mg tablet 400 mg PO DAILY #120 tabs 11/28/23 fluticasone fur. 100 mcg-umeclid 1 inh inhalation DAILY 30 days #1 02/06/24 62.5 mcg-vilant 25 mcg ea inhalat.powder (Trelegy Ellipta) levofloxacin 750 mg tablet 750 mg PO DAILY 5 days #5 tabs 04/06/24 gabapentin 400 mg capsule 400 mg PO TID Pain #90 caps 04/08/24 Allergies Allergy/AdvReac Type Severity Reaction Status Date / Time metronidazole Allergy Unknown I-HIVES Verified 05/18/24 10:50 nitrofurantoin Allergy Unknown Unknown Verified 05/18/24 10:50 [From MACROBID] allergy reaction [facility] <MAYRA Baltazar - Last Filed: 05/30/24 23:09> [facility] Disclaimer: The information contained in this section may have been updated after the patient was seen, as this information can be updated by other users. Medical History Sepsis Bronchiectasis History of smoking 30 or more pack years MRSA pneumonia Asthma Congenital diverticulum of esophagus Anxiety Essential hypertension Arthritis Diverticulosis History of falling History of dysuria History of cystitis Migraine Rheumatoid arthritis Intervertebral disc disorder Schizoaffective disorder Depression Dysphagia GERD (gastroesophageal reflux disease) Nicotine dependence Hx MRSA infection Atherosclerotic cardiovascular disease Hypothyroid Emphysema/COPD Hypertension Hyperlipidemia Pseudomonas urinary tract infection Gram-negative infection Lumbar radiculopathy Toe pain, left Breast nodule Lung nodule Closed head injury Fall Community acquired pneumonia Respiratory failure with hypoxia and hypercapnia Sepsis with acute organ dysfunction Community acquired bacterial pneumonia COPD exacerbation Aspiration pneumonia Esophageal diverticulum E. coli UTI (urinary tract infection) Hypokalemia SIRS (systemic inflammatory response syndrome) Cholelithiasis Colon, diverticulosis Emphysematous cystitis Abdominal pain UTI (urinary tract infection) Pneumonia Tobacco dependence Decreased mobility Urinary incontinence Low back pain radiating to both legs Obesity (BMI 30-39.9) COPD with acute exacerbation Staphylococcus aureus pneumonia Lung nodule seen on imaging study Acquired hypothyroidism Chronic low back pain Generalized anxiety disorder Cough Acute bronchitis RLL pneumonia Acute exacerbation of chronic obstructive airways disease Surgical History H/O: hysterectomy Family History Other Family history of cancer Social History Smoking Status: Never smoker second hand exposure: Yes alcohol intake: former substance use type: denies use current occupational status: retired Travel in the last 8 weeks: None household members: family housing: half-way diet: low salt caffeine: Yes <MAYRA Baltazar - Last Filed: 05/30/24 23:09> ROS Obtained: Yes Systems reviewed as appropriate & no additional complaints except as documented Physical Exam <MAYRA Baltazar - Last Filed: 05/30/24 23:09> General General appearance: alert and in no apparent distress Head Head exam: atraumatic and normal inspection Eye Eye exam: Present normal appearance and EOMI ENT ENT exam: Present normal exam and normal oropharynx Neck Neck exam: Present normal inspection and full ROM; Absent tenderness Chest Chest inspection: Present normal inspection and symmetric chest wall rise; Absent tenderness Respiratory Respiratory exam: Present normal lung sounds bilaterally; Absent respiratory distress or accessory muscle use Cardiovascular Cardiovascular exam: Present regular rate and normal rhythm Abdominal Exam Abdominal exam: Present soft and normal bowel sounds; Absent tenderness, guarding or rebound Extremities Exam Extremities exam: Present full ROM; Absent normal inspection (Patient has a superficial abrasion/skin tear to the dorsal surface of her proximal forearm at the elbow has been repaired already prior to arrival here) or tenderness Back Exam Back exam: Present normal inspection and tenderness (Patient has diffuse tenderness across her back including the paraspinous muscles but no bony deformity noted no ecchymosis noted ); Absent full ROM Neurological Exam Neurological exam: Present alert, oriented X3 and CN II-XII intact Psychiatric Psychiatric exam: Present normal affect and normal mood Skin Skin exam: Present warm, dry and normal color Lymphatic Lymphatic Findings: no adenopathy Medical Decision Making <MAYRA Baltazar - Last Filed: 05/30/24 23:09> Medical Records Medical records reviewed: Yes I reviewed the patient's medical records. Alex Inquiry Pt receiving controlled substance: No Vital Signs: 05/30/24 20:01 05/30/24 22:45 05/30/24 23:00 Temperature 97.9 F Temperature Source Oral Pulse Rate 82 83 Pulse Rate [Right] 89 Respiratory Rate 22 18 16 Blood Pressure 169/67 H 155/97 H Blood Pressure [Right Arm] 187/78 H Blood Pressure Mean 118 Blood Pressure Mean [Right Arm] 114 Blood Pressure Source [Right Arm] Automatic Cuff 02 Sat by Pulse Oximetry 94 L 90 L 91 L Oxygen Delivery Method Nasal Cannula Nasal Cannula Nasal Cannula Oxygen Flow Rate (LPM) 4 Lab Data Lab results reviewed: Yes I reviewed the patient's lab results. Orders (Tests/Meds): ED MEDICATIONS Discontinued Medications Generic Name Dose Route Start Last Admin Trade Name Freq PRN Reason Stop Dose Admin Acetaminophen 1,000 mg 05/30/24 20:38 05/30/24 22:40 Acetaminophen 500mg Tab PO 05/30/24 20:39 1,000 mg ONCE ONE Administration Fentanyl Citrate 50 mcg 05/30/24 23:12 Fentanyl 100mcg/2ml Vial IV 05/30/24 23:13 ONCE ONE ORDERS Category Date Time Status CT bony pelvis Stat Cat Scan 05/30/24 20:[address] lumbar spine wo con Stat Cat Scan 05/30/24 20:[address] thoracic spine wo con Stat Cat Scan 05/30/24 20:34 Completed Elbow XR left mininum 3 views [XR elbow LT min 3V] Stat Exams 05/30/24 20:34 Completed Forearm XR left 2 views [XR forearm LT 2V] Stat Exams 05/30/24 20:34 Completed XR humerus LT Stat Exams 05/30/24 20:34 Completed Urinalysis and Microscopic Stat Lab 05/30/24 23:12 Ordered Medical Decision Narrative: In summary patient is a 73-year-old female who presents to the emergency department for evaluation of accidental fall. Patient is hemodynamically stable upon arrival, afebrile. Physical exam is remarkable for no C-spine tenderness in the midline with full 45 degree range of motion without tenderness and a Glascow coma score 15. Patient has palpable tenderness across the entire thoracic and lumbar spines but no visible contusions abrasions deformities ecchymosis noted. Patient also complains of pain in the left upper extremity where she had a skin tear repaired primarily at the outside facility. Via [place] C-spine rule she is clear cleared for any more advanced imaging. Differential diagnosis includes contusion versus fracture of multiple potential bones and sites. Initial workup will be conducted with Noncon CT scan of the TL spine and bony pelvis and plain film x-rays of the left upper extremity. Initial interventions include crystalloid bolus Toradol Tylenol. Initial workup reviewed by me shows that she has new compression fractures in the thoracic and lumbar spines along with a left femoral neck fracture. Upon repeat evaluation patient has no saddle anesthesia no incontinence still has motor and sensory intact distally. She still does have back pain. I had interactive discussion with the transfer center physician Dr. Cb Villagran regarding patient management at the [facility] and she has been accepted to the [facility] ER for further evaluation and care <Doug Sanchez MD - Last Filed: 05/30/24 23:25> Vital Signs: 05/30/24 20:01 05/30/24 22:45 05/30/24 23:00 Temperature 97.9 F Temperature Source Oral Pulse Rate 82 83 Pulse Rate [Right] 89 Respiratory Rate 22 18 16 Blood Pressure 169/67 H 155/97 H Blood Pressure [Right Arm] 187/78 H Blood Pressure Mean 118 Blood Pressure Mean [Right Arm] 114 Blood Pressure Source [Right Arm] Automatic Cuff 02 Sat by Pulse Oximetry 94 L 90 L 91 L Oxygen Delivery Method Nasal Cannula Nasal Cannula Nasal Cannula Oxygen Flow Rate (LPM) 4 Orders (Tests/Meds): ED MEDICATIONS Discontinued Medications Generic Name Dose Route Start Last Admin Trade Name Freq PRN Reason Stop Dose Admin Acetaminophen 1,000 mg 05/30/24 20:38 05/30/24 22:40 Acetaminophen 500mg Tab PO 05/30/24 20:39 1,000 mg ONCE ONE Administration Fentanyl Citrate 50 mcg 05/30/24 23:12 Fentanyl 100mcg/2ml Vial IV 05/30/24 23:13 ONCE ONE ORDERS Category Date Time Status CT bony pelvis Stat Cat Scan 05/30/24 20:[address] lumbar spine wo con Stat Cat Scan 05/30/24 20:[address] thoracic spine wo con Stat Cat Scan 05/30/24 20:34 Completed Elbow XR left mininum 3 views [XR elbow LT min 3V] Stat Exams 05/30/24 20:34 Completed Forearm XR left 2 views [XR forearm LT 2V] Stat Exams 05/30/24 20:34 Completed XR humerus LT Stat Exams 05/30/24 20:34 Completed Urinalysis and Microscopic Stat Lab 05/30/24 23:12 Ordered Medical Decision Narrative: In summary patient is a 73-year-old female who presents to the emergency department for evaluation of accidental fall. Patient is hemodynamically stable upon arrival, afebrile. Physical exam is remarkable for no C-spine tenderness in the midline with full 45 degree range of motion without tenderness and a Glascow coma score 15. Patient has palpable tenderness across the entire thoracic and lumbar spines but no visible contusions abrasions deformities ecchymosis noted. Patient also complains of pain in the left upper extremity where she had a skin tear repaired primarily at the outside facility. Via [place] C-spine rule she is clear cleared for any more advanced imaging. Differential diagnosis includes contusion versus fracture of multiple potential bones and sites. Initial workup will be conducted with Noncon CT scan of the TL spine and bony pelvis and plain film x-rays of the left upper extremity. Initial interventions include crystalloid bolus Toradol Tylenol. Initial workup reviewed by me shows that she has new compression fractures in the thoracic and lumbar spines along with a left femoral neck fracture. Upon repeat evaluation patient has no saddle anesthesia no incontinence still has motor and sensory intact distally. She still does have back pain. I had interactive discussion with the transfer center physician Dr. Cb Villagran regarding patient management at the [facility] and she has been accepted to the [facility] ER for further evaluation and care. I was consulted by the LORE, and we discussed the complexity of the problems being addressed. I approved the treatment and management plan for this patient's care in the emergency department, thus performing a substantive portion of the medical decision making. Patient had a mechanical fall with polytrauma with noncontrasted CT scans based on initial survey. There are multiple spinal fractures, left femoral neck fracture. IV placed and Cason anchored, fentanyl administered. She has no signs of cauda equina upon my evaluation currently. Patient accepted by [facility] and will require polytrauma evaluation and likely additional imaging. Doug Sanchez MD Critical Care <MAYRA Baltazar - Last Filed: 05/30/24 23:09> Critical Care Time Critical Care Time: No
--- NOTE | 2024-05-30 20:34 | CT_ITS ---
PROCEDURE INFORMATION: Exam: CT Pelvis Without Contrast; Skeletal Exam date and time: 05/30/2024 8:55 PM Age: 73 years old Clinical indication: Pelvic pain; Additional info: Fall TECHNIQUE: Imaging protocol: Computed tomography of the pelvis without contrast. Exam focused on the skeleton. Radiation optimization: All CT scans at this facility use at least one of these dose optimization techniques: automated exposure control; mA and/or kV adjustment per patient size (includes targeted exams where dose is matched to clinical indication); or iterative reconstruction. COMPARISON: CT ANGIO ABDOMEN PELVIS 06/19/2022 6:33 PM FINDINGS: Intestine: Colonic diverticulosis. Bones/joints: Mildly displaced, mildly impacted, mildly angulated left femoral neck fracture. No dislocation. Osteopenia. Unremarkable right hip prosthesis Soft tissues: Unremarkable. IMPRESSION: Left femoral neck fracture.
--- NOTE | 2024-05-30 20:34 | CT_ITS ---
PROCEDURE INFORMATION: Exam: CT Thoracic Spine Without Contrast Exam date and time: 05/30/2024 8:50 PM Age: 73 years old Clinical indication: Injury or trauma; Fall; Sprain or strain TECHNIQUE: Imaging protocol: Computed tomography of the thoracic spine without contrast. Radiation optimization: All CT scans at this facility use at least one of these dose optimization techniques: automated exposure control; mA and/or kV adjustment per patient size (includes targeted exams where dose is matched to clinical indication); or iterative reconstruction. COMPARISON: CT THORACIC SPINE WO CON 06/19/2022 6:26 PM FINDINGS: Bones/joints: New T6 superior vertebral body endplate fracture with 20% vertebral body height loss. No bony retropulsion. Also likely L2 vertebral body fracture in barely visualized lumbar spine. Normal alignment. No significant disc bulge or herniation. No severe spinal canal stenosis. No significant neural foraminal narrowing. Osteopenia. Soft tissues: Unremarkable. Lungs: Nonspecific poorly defined pulmonary parenchymal possibly spiculated density in visualized right upper lobe. Poorly defined 0.9 cm density in superior segment right lower lobe. Patchy tree-in-bud densities in visualized bilateral lower lobes. IMPRESSION: 1. Age-indeterminate T6 vertebral body fracture without bony retropulsion or central canal compromise, new since last available comparison study. 2. Also likely T2 vertebral body fracture in barely visualized lumbar spine, also new since last available comparison study. 3. Possible spiculated pulmonary density in visualized right upper, right lower and bilateral tree-in-bud densities. Recommend nonurgent CT scan for further imaging evaluation.
--- NOTE | 2024-05-30 20:34 | CT_ITS ---
PROCEDURE INFORMATION: Exam: CT Lumbar Spine Without Contrast Exam date and time: 05/30/2024 8:53 PM Age: 73 years old Clinical indication: Injury or trauma; Fall; Sprain or strain, lumbar ligaments TECHNIQUE: Imaging protocol: Computed tomography of the lumbar spine without contrast. Radiation optimization: All CT scans at this facility use at least one of these dose optimization techniques: automated exposure control; mA and/or kV adjustment per patient size (includes targeted exams where dose is matched to clinical indication); or iterative reconstruction. COMPARISON: CT LUMBAR SPINE WO CON 06/19/2022 6:29 PM FINDINGS: Bones/joints: L2 superior endplate fracture with approximate 30% vertebral body height loss with bony retropulsion and secondary moderate anterior central canal narrowing. No neural foraminal narrowing. Remainder of visualized lumbar spine grossly unremarkable with preserved vertebral body heights. Osteopenia. Kidneys and ureters: Probable 0.3 cm nonobstructive right renal calculus. Soft tissues: Unremarkable. IMPRESSION: 1. L2 vertebral body compression fracture with bony retropulsion and secondary central canal narrowing. 2. Incidental small nonobstructive right renal calculus.
--- NOTE | 2024-05-30 20:34 | XR_ITS ---
PROCEDURE INFORMATION: Exam: XR Left Elbow Exam date and time: 05/30/2024 8:53 PM Age: 73 years old Clinical indication: Injury or trauma; Fall; Blunt trauma (contusions or hematomas); Elbow; Left TECHNIQUE: Imaging protocol: Radiologic exam of the left elbow. Views: 3 or more views. COMPARISON: CR XR HUMERUS LT 05/30/2024 8:53 PM FINDINGS: Bones/joints: Normal. Soft tissues: Normal. IMPRESSION: No acute findings.
--- NOTE | 2024-05-30 20:34 | XR_ITS ---
PROCEDURE INFORMATION: Exam: XR Left Humerus Exam date and time: 05/30/2024 8:53 PM Age: 73 years old Clinical indication: Injury or trauma; Fall; Blunt trauma (contusions or hematomas); Arm, upper; Left TECHNIQUE: Imaging protocol: Radiologic exam of the left humerus. Views: 2 or more views. COMPARISON: CR XR ELBOW LT MIN 3V 05/30/2024 8:53 PM FINDINGS: Bones/joints: Normal. Soft tissues: Normal. IMPRESSION: No acute findings.
--- NOTE | 2024-05-30 20:34 | XR_ITS ---
PROCEDURE INFORMATION: Exam: XR Left Forearm Exam date and time: 05/30/2024 8:53 PM Age: 73 years old Clinical indication: Injury or trauma; Fall; Blunt trauma (contusions or hematomas); Arm, lower; Left TECHNIQUE: Imaging protocol: Radiologic exam of the left forearm. Views: 2 views. COMPARISON: CR XR ELBOW LT MIN 3V 05/30/2024 8:53 PM FINDINGS: Bones/joints: No acute fracture. Normal alignment. Degenerative changes of scaphoid multangular and 1st carpometacarpal joints. Soft tissues: Normal. IMPRESSION: No acute findings.
[2024-05-30] MEDS: ACETAMINOPHEN 500MG TAB 1000 MG PO (22:40)
[2024-05-30 22:45] VITALS: BP 169/67; PULSE 82; RESP 18; O2SAT 90
--- NOTE | 2024-05-30 22:53 | PC.NURSE ---
Asked radiology to power share images to [facility]
--- NOTE | 2024-05-30 22:54 | PC.NURSE ---
Called placed to [facility] for Spine consult
[2024-05-30 23:00] VITALS: BP 155/97; PULSE 83; RESP 16; O2SAT 91
--- NOTE | 2024-05-30 23:01 | PC.NURSE ---
Jose Cruz Mo PA-C is s/w [facility]'s
--- NOTE | 2024-05-30 23:05 | PC.NURSE ---
Calling [facility] for transfer to [facility]. Dr. Villagran has accepted this pt.
--- NOTE | 2024-05-30 23:19 | PC.NURSE ---
[facility] accepts and will arrive eta 20 min
[2024-05-30] MEDS: FENTANYL 100MCG/2ML VIAL 50 MCG IV ×2 (23:20→23:45)
[2024-05-30 23:32] LABS: Microscopic, Urine URINE MICROSCOPIC (MICROSCOPIC)
--- NOTE | 2024-05-30 23:33 | PC.NURSE ---
Report called to BRYANNA Rose
[2024-05-30 23:34] LABS: Bilirubin,Urine Negative (Negative); Blood, Urine Negative (Negative); Color,Urine YELLOW (Yellow); Glucose,Urine (UA) Negative (Negative); Ketones,Urine Negative (Negative); Leukocyte Esterase,Urine Negative (Negative); Nitrate,Urine POSITIVE (Negative); Protein,Urine Negative (Negative); Specific Gravity, Urine 1.025 (1.005-1.030); Urobilinogen,Urine 0.2 EU/dl (0.2)
[2024-05-30 23:37] LABS: Appearance,Urine Slightly Cloudy (Clear)
[2024-05-30 23:44] LABS: Squamous Epithelial Cell,Urine Occasional #/hpf (0-5); WBC,Urine Occasional #/hpf (0-3)
[2024-05-30 23:45] LABS: Bacteria,Urine 2+ /lpf
[2024-05-30 23:50] VITALS: BP 151/87; PULSE 82; RESP 26; TEMP 36.7; O2SAT 90
--- NOTE | 2024-05-30 23:57 | PC.NURSE ---
[facility] here
--- NOTE | 2024-06-03 09:13 | PC.NURSE ---
urine culture results faxed to Noemi at [facility] [phone]
== END 2024-05-30 23:51 | disposition short-term general hospital (02) ==
PROVIDERS: Emergency Provider Emergency Medicine
DX: S72.002A Fracture of unspecified part of neck of left femur, initial encounter for closed fracture (principal); S32.020A Wedge compression fracture of second lumbar vertebra, initial encounter for closed fracture; S22.059A Unspecified fracture of T5-T6 vertebra, initial encounter for closed fracture; S22.029A Unspecified fracture of second thoracic vertebra, initial encounter for closed fracture; B96.29 Other Escherichia coli [E. coli] as the cause of diseases classified elsewhere; J44.9 Chronic obstructive pulmonary disease, unspecified; I10 Essential (primary) hypertension; K21.9 Gastro-esophageal reflux disease without esophagitis; E78.5 Hyperlipidemia, unspecified; Z87.891 Personal history of nicotine dependence; W06.XXXA Fall from bed, initial encounter
CPT/HCPCS: 51702; 72128; 72131; 72192; 73060; 73080; 73090; 81001; 87086; 87088; 87186; 96374; 99285; J3010